=== PATIENT | female | born 1955 | race Caucasian/White ===

== ENCOUNTER → 2016-04-17 | Outpatient (CLI) | payer BC, OTHER ==
[~2016-04-17] MED LIST: ACT/45 PO; ASPCH81X PO; ASPI81TA28 PO; CYCL10TA6 PO; FLUO40CA8 PO; GABA1CAP PO; HYDR-5688 PO; IBUP-1450 PO; KRIL1000 PO; LEVO175T PO; LOSA100T2 PO; MECL1TAB42 PO; METF-384 PO; METF1TAB53 PO; METFTAB PO; MULT-506 PO; OMEG100046 PO
--- NOTE | 2016-04-17 11:01 | DIAGNOSTIC IMAGING REPORT ---
CHEST 2 VIEWS ROUTINE CLINICAL HISTORY: Cough COMPARISON STUDY: No previous studies for comparison. FINDINGS: The heart is at the upper limits of normal in size. There is mild interstitial thickening. There is no focal pulmonary consolidation. There are no pleural effusions.[ IMPRESSION: Mild interstitial thickening, finding of uncertain chronicity. No evidence of focal pulmonary consolidation Electronically signed by: Camilo George M.D. 04/17/2016 10:59 AM Dictated Date/Time: 04/17/2016 10:58 AM
== END | disposition home or self-care (01) ==
LOC: C.RAD1850 10:31
PROVIDERS: ATTEND Internal Medicine
DX: R05 Cough (principal)

== ENCOUNTER 2016-10-19 05:33 | Emergency (ER) | payer OTHER ==
[~2016-10-19] VITALS: Ht 147.3 cm; Wt 130.2 kg
[~2016-10-19 05:33] MED LIST changes: -ASPI81TA28 PO; -MECL1TAB42 PO; -METFTAB PO; -OMEG100046 PO
[2016-10-19] MEDS ORDERED: SODIUM CHLORIDE 0.9% 1000ML 1,000 ML IV STA (05:41)
[2016-10-19 05:43] VITALS: TEMP 37.5; Ht 147.3 cm; Wt 130.2 kg
[2016-10-19 05:49] VITALS: O2SAT 96
[2016-10-19] MEDS ORDERED: OMEG100046 PO (05:57)
[2016-10-19] MEDS ORDERED: ASPI81TA28 PO (05:57)
[2016-10-19] MEDS ORDERED: MECL1TAB42 PO (05:58)
[2016-10-19 06:17] LABS: BASO % 0.5 %; BASO ABS # 0.03 K/uL (0-0.2); COMPLETE YES; EOS % 2.2 %; HEMATOCRIT 40.6 % (37-47); IG% 0.3 %; LYMPH % 30.1 %; LYMPH ABS # 1.95 K/uL (1.2-3.4); MEAN CELL VOLUME 92.1 fL (80-100); MEAN CORPUSCULAR HEMOGLOBIN 32.4 pg (25-34); MEAN CORPUSCULAR HGB CONC 35.2 g/dl (32-36); MEAN PLATELET VOLUME 10.2 fL (7.4-10.4); MONO % 9.4 %; NEUT % 57.5 %; PLATELET COUNT 188 K/uL (130-400); RED BLOOD COUNT 4.41 M/uL (4.2-5.4); WHITE BLOOD COUNT 6.48 K/uL (4.8-10.8)
[2016-10-19] MEDS ORDERED: NovoLIN-R INSULIN PER UNIT CHARGE IV STA (06:22)
[2016-10-19 06:23] LABS: ISTAT CREATININE 0.8 mg/dl (0.6-1.3); ISTAT HEMOGLOBIN 14.6 g/dl (12.0-16.0); ISTAT IONIZED CALCIUM 1.14 mmol/l (1.12-1.32)
[2016-10-19 06:24] LABS: URINE APPEARANCE CLEAR (CLEAR); URINE BILIRUBIN NEG (NEG); URINE COLOR YELLOW; URINE NITRITE NEG (NEG); URINE SPECIFIC GRAVITY 1.044 (1.000-1.030); UROBILINOGEN NEG (NEG); ZZUR CULT IF INDIC CLEAN CATCH NO
[2016-10-19] MEDS ORDERED: METFTAB PO ×2 (06:24)
[2016-10-19 06:42] LABS: MANUAL MICROSCOPIC REQUIRED? NO; REVIEW REQ? NO
[2016-10-19 07:01] LABS: ALKALINE PHOSPHATASE 110 U/L (45-117); ALT/SGPT 37 U/L (12-78); AST/SGOT 27 U/L (15-37); BLOOD UREA NITROGEN 15 mg/dl (7-18); CALCIUM 8.8 mg/dl (8.5-10.1); CARBON DIOXIDE 25 mmol/L (21-32); CHLORIDE 99 mmol/L (98-107); GLUCOSE 460 mg/dl (70-99); POTASSIUM 3.8 mmol/L (3.5-5.1); SODIUM 133 mmol/L (136-145)
--- NOTE | 2016-10-19 07:04 | EMERGENCY ROOM VISIT NOTE ---
History First contact with patient: 05:35 Chief Complaint: HYPERGLYCEMIA Stated Complaint: HYPERGLYCEMIA History of Present Illness The patient is a 61 year old female who presents to the Emergency Room with complaints of hyperglycemia for the past few days. Patient states she's been out of her Glucophage for the past few weeks. Patient states she is changing PCPs and has an appointment in 2 weeks with a new one. Patient states she was lightheaded when she got up this morning to urinate and noticed her blood sugars were over 500. Patient denies chest pain, dyspnea, fever, chills, nausea , vomiting, diarrhea, back pain, abdominal pain. Patient complained of urinary frequency but states this is normal for her. No prior heart disease. Review of Systems See HPI for pertinent positives & negatives. A total of 10 systems reviewed and were otherwise negative. Past Medical/Surgical History Diabetes type 2, hypertension, hyperlipidemia, hypothyroidism Social History Smoking Status: Former Smoker Drug Use: none Marital Status: Housing Status: lives with family Current/Historical Medications Scheduled Aspirin (Aspirin Ec), 81 MG PO DAILY Fluoxetine (Prozac), 40 MG PO QAM Gabapentin (Neurontin), 1 CAP PO TID Levothyroxine Sodium (Synthroid), 175 MCG PO QAM Losartan Potassium & Hydrochlo (Hyzaar), 1 TAB PO QAM Metformin Ext Rel (Glucophage Ext Rel), 2 TAB PO QAM Metformin Ext Rel (Glucophage Ext Rel), 3 TABS PO QPM Metformin Hcl (Glucophage Ext Rel), 1 TAB PO QAM Metformin Hcl (Glucophage), 1,500 MG PO QPM Social Circle-3 Fatty Acids (Social [place] 3), 1 CAP PO DAILY Pioglitazone Hcl (Actos), 45 MG PO QAM Scheduled PRN Cyclobenzaprine Hcl (Flexeril), 1 TAB PO BID PRN for Pain Hydrocodone/Acetaminophen 5MG/325MG (Dahlgren 5MG/325MG), 0.5-1 TAB PO Q6H PRN for Pain Meclizine Hcl (Meclizine Hcl), 1 TAB PO TID PRN for Dizziness or Vertigo Physical Exam Vital Signs Date Time Temp Pulse Resp B/P (MAP) Pulse Ox O2 Delivery O2 Flow Rate FiO2 10/19/16 06:54 159/75 10/19/16 06:48 92 20 94 10/19/16 06:46 146/86 10/19/16 06:33 90 20 97 10/19/16 06:32 171/99 10/19/16 06:18 95 23 95 10/19/16 05:49 96 Room Air 10/19/16 05:43 97 Room Air 10/19/16 05:43 37.5 103 20 182/136 96 Room Air 10/19/16 05:41 100 10/19/16 05:39 182/136 Physical Exam VITALS: Vitals are noted on the nurse's note and reviewed by myself. Vital signs hypertensive GENERAL: Pleasant female, in no acute distress, nondiaphoretic, well-developed well-nourished. SKIN: The skin was without rashes, erythema, edema, or bruising. There is no tenting of the skin. Capillary reflex less than 2 seconds. HEAD: Normocephalic atraumatic. EARS: External auditory canals clear, tympanic membranes pearly deng without erythema or effusion bilaterally. EYES: Pupils equal round and reactive to light and accommodation. Conjunctivae without injection, sclerae without icterus. Extraocular movements intact. NOSE: Patent, turbinates without inflammation or discharge. MOUTH: Mucous membranes mildly dry. Pharynx without erythema or exudate. Uvula midline. Airway patent. Tongue does not deviate. NECK: Supple without nuchal rigidity. No lymphadenopathy. No thyromegaly. Cervical spine is nontender. No JVD. HEART: Regular rate and rhythm LUNGS: Clear to auscultation bilaterally without wheezes, rales or rhonchi. No dullness to percussion. No retractions or accessory muscle use. ABDOMEN: Positive bowel sounds x 4. Normal tympanic percussion. Soft, protuberant, obese, nontender, without masses or organomegaly. Gutierrez sign negative. No guarding or rebound tenderness. MUSCULOSKELETAL: No muscle atrophy, erythema, or edema noted. NEURO: Patient was alert and oriented to person place and time. Normal sensation to light and sharp touch. No focal neurological deficits. Medical Decision & Procedures Laboratory Results 10/19/16 06:05 Red Blood Count 4.41, Mean Corpuscular Volume 92.1, Mean Corpuscular Hemoglobin 32.4, Mean Corpuscular Hemoglobin Concent 35.2, Mean Platelet Volume 10.2, Neutrophils (%) (Auto) 57.5, Lymphocytes (%) (Auto) 30.1, Monocytes (%) (Auto) 9.4, Eosinophils (%) (Auto) 2.2, Basophils (%) (Auto) 0.5, Neutrophils # (Auto) 3.73, Lymphocytes # (Auto) 1.95, Monocytes # (Auto) 0.61, Eosinophils # (Auto) 0.14, Basophils # (Auto) 0.03 10/19/16 06:05 Test 10/19/16 05:40 10/19/16 06:05 10/19/16 06:10 10/19/16 06:55 Urine Color YELLOW Urine Appearance CLEAR (CLEAR) Urine pH 5.0 (4.5-7.5) Urine Specific [place] 1.044 (1.000-1.030) Urine Protein NEG (NEG) Urine Glucose (UA) 3+ (NEG) Urine Ketones NEG (NEG) Urine Occult Blood NEG (NEG) Urine Nitrite NEG (NEG) Urine Bilirubin NEG (NEG) Urine Urobilinogen NEG (NEG) Urine Leukocyte Esterase NEG (NEG) White Blood Count 6.48 K/uL (4.8-10.8) Red Blood Count 4.41 M/uL (4.2-5.4) Hemoglobin 14.3 g/dL (12.0-16.0) Hematocrit 40.6 % (37-47) Mean Corpuscular Volume 92.1 fL (80-100) Mean Corpuscular Hemoglobin 32.4 pg (25-34) Mean Corpuscular Hemoglobin Concent 35.2 g/dl (32-36) Platelet Count 188 K/uL (130-400) Mean Platelet Volume 10.2 fL (7.4-10.4) Neutrophils (%) (Auto) 57.5 % Lymphocytes (%) (Auto) 30.1 % Monocytes (%) (Auto) 9.4 % Eosinophils (%) (Auto) 2.2 % Basophils (%) (Auto) 0.5 % Neutrophils # (Auto) 3.73 K/uL (1.4-6.5) Lymphocytes # (Auto) 1.95 K/uL (1.2-3.4) Monocytes # (Auto) 0.61 K/uL (0.11-0.59) Eosinophils # (Auto) 0.14 K/uL (0-0.5) Basophils # (Auto) 0.03 K/uL (0-0.2) RDW Standard Deviation 45.1 fL (36.4-46.3) RDW Coefficient of Variation 13.3 % (11.5-14.5) Immature Granulocyte % (Auto) 0.3 % Immature Granulocyte # (Auto) 0.02 K/uL (0.00-0.02) Est Creatinine Clear Calc Drug Dose 66.6 ml/min Estimated GFR () 63.6 Estimated GFR (Non- 54.9 BUN/Creatinine Ratio 14.0 (10-20) Calcium Level 8.8 mg/dl (8.5-10.1) Total Bilirubin 0.5 mg/dl (0.2-1) Direct Bilirubin < 0.1 mg/dl (0-0.2) Aspartate Amino Transf (AST/SGOT) 27 U/L (15-37) Alanine Aminotransferase (ALT/SGPT) 37 U/L (12-78) Alkaline Phosphatase 110 U/L (45-117) Total Protein 7.2 gm/dl (6.4-8.2) Albumin 3.6 gm/dl (3.4-5.0) Bedside Hemoglobin 14.6 g/dl (12.0-16.0) Bedside Hematocrit 43 % (37-47) Bedside Sodium 135 mEq/L (135-144) Bedside Potassium 3.9 mEq/L (3.3-5.0) Bedside Chloride 97 mEq/L (101-112) Bedside Total CO2 25 mEq/l (24-31) Anion Gap 18.0 mmol/L (16-25) Bedside Blood Urea Nitrogen 16 mg/dl (7-18) Bedside Creatinine 0.8 mg/dl (0.6-1.3) Bedside Glucose (other) 468 mg/dl (70-99) Bedside Ionized Calcium (Kings) 1.14 mmol/l (1.12-1.32) Bedside Troponin I < 0.030 ng/ml (0-0.045) Bedside Glucose 318 mg/dl (70-90) Medications Administered Medications (Trade) Dose Ordered Sig/Marge Route Start Time Stop Time Status Last Admin Dose Admin Sodium Chloride 1,000 ml @ 999 mls/hr Q1H1M STAT IV 10/19/16 05:41 10/19/16 06:41 DC 10/19/16 05:41 999 MLS/HR Insulin Human Regular (novoLIN-R U-100 PER UNIT) 10 units NOW STAT IV 10/19/16 06:22 10/19/16 06:23 DC 10/19/16 06:25 10 UNITS ED Course Prior records/ancillary studies reviewed and summarized above. Nursing notes reviewed. Additional history obtained from EMS. The patient's history was concerning for hyperglycemia. Differential diagnosis: Etiologies such as metabolic, infection, hypo/hyperglycemia, electrolyte abnormalities, cardiac sources, intracerebral event, toxicologic, neurologic, as well as others were entertained. Physical examination: As above. ER treatment provided: IV Lock IV fluids On reassessment the patient felt better. Diagnostics interpretation by me: ECG: Normal sinus, normal intervals, no acute ST-T wave changes, impression sinus tachycardia interpreted by myself The labs revealed hyper glycemia without DKA Imaging studies: Chest x-ray with no acute consolidation, Pneumovax or free air per my interpretation Exam and history seem consistent with hyperglycemia due to noncompliance of medications. Patient was given a month's supply of her metformin as she was out. She is advised to get all her medications from her family care doctor. Patient was not in DKA. She is well-appearing. She is tolerating fluids. She did not take her morning blood pressure pills. She was advised to monitor her blood pressure and her blood sugars. She is advised follow-up family care in a few days or here in the ER sooner for chest pain, difficulty breathing, high blood sugars, worsening signs or symptoms or as needed. By the evaluation outlined above emergent etiologies such as infection, electrolyte abnormalities, cardiac sources, intracerebral event, toxologic, neurologic, metabolic, as well as others were deemed relatively unlikely. The pt informed about the findings as listed above. All questions were answered and pleased with the treatment. Return instructions were outlined and the patient was discharged in stable condition. Outpatient prescription management: Metformin Referral: The patient was referred back to primary care physician for follow-up in 2 to 3 days for a recheck of the current condition. Case reviewed with my attending Medical Decision As above Medication Reconcilliation Current Medication List: was personally reviewed by me Blood Pressure Screening Patient's blood pressure: Elevated blood pressure Blood pressure disposition: Elevated BP felt to be situational Impression Primary Impression: Hyperglycemia due to type 2 diabetes mellitus Departure Information Dispostion Home / Self-Care Condition GOOD Prescriptions Metformin Ext Rel (GLUCOPHAGE EXT REL) 500 Mg Tab 3 TABS PO QPM for 30 Days, #90 TAB Prov: Karlie Guo PA-C 10/19/16 Metformin Ext Rel (GLUCOPHAGE EXT REL) 500 Mg Tab 2 TAB PO QAM for 30 Days, #60 TAB Prov: Karlie Guo PA-C 10/19/16 Referrals Pro,Marty Denney M.D. (PCP) Patient Instructions My [facility] Additional Instructions Monitor your blood sugars. Rest and drink plenty of fluids as tolerated. Continue current medications. Return to the ER immediately for abdominal pain, vomiting, fevers, chest pains, difficulty breathing, worsening of your condition, or as needed. Follow up with your primary physician in 2-3 days for a recheck of your current condition. 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
[2016-10-19 07:12] VITALS: BP 143/69; PULSE 90; O2SAT 94
[2016-10-19 07:18] LABS: BETA-HYDROXYBUTYRATE 1.38 mg/dL (0.2-2.81)
--- NOTE | 2016-10-19 07:26 | DIAGNOSTIC IMAGING REPORT ---
CHEST ONE VIEW PORTABLE CLINICAL HISTORY: Chest pain. Hyperglycemia. COMPARISON STUDY: Chest radiograph April 17, 2016. FINDINGS: There is no pneumothorax or pleural effusion. Mild interstitial thickening is unchanged since prior exam. There is no consolidation to suggest pneumonia. Mild cardiomegaly is unchanged. There is no evidence of pulmonary edema. IMPRESSION: 1. No acute cardiopulmonary findings. 2. No change in mild interstitial thickening since exam of April 17, 2016. This remains nonspecific. Electronically signed by: Raman Peña M.D. 10/19/2016 7:24 AM Dictated Date/Time: 10/19/2016 7:23 AM
== END 2016-10-19 07:12 | disposition home or self-care (01) ==
LOC: EDBD 05:33 → C.EDB 05:35
DX: E11.65 Type 2 diabetes mellitus with hyperglycemia (principal); I10 Essential (primary) hypertension; E78.5 Hyperlipidemia, unspecified; E03.9 Hypothyroidism, unspecified; Z87.891 Personal history of nicotine dependence; Z79.82 Long term (current) use of aspirin; Z79.899 Other long term (current) drug therapy; Z91.14 Patient's other noncompliance with medication regimen

== ENCOUNTER → 2017-02-03 | Outpatient (CLI) | payer OTHER ==
[~2017-02-03] MED LIST changes: -ASPCH81X PO; +ASPI81TA28 PO; -IBUP-1450 PO; -KRIL1000 PO; +MECL1TAB42 PO; +METFTAB PO; -MULT-506 PO; +OMEG100046 PO
--- NOTE | 2017-02-03 09:53 | DIAGNOSTIC IMAGING REPORT ---
L-SPINE MIN 4 VIEWS ROUTINE CLINICAL HISTORY: M51.36 Disc degeneration, lumbar pain COMPARISON STUDY: No previous studies for comparison. FINDINGS: There is no pathologic bowel dilatation. There are surgical clips within the right upper quadrant consistent with a prior cholecystectomy. There are postsurgical changes of a discectomy and interbody fusion and posterior uncal screw fixation at the L5-S1 level. There is a grade 1 spondylolisthesis of L5 on S1. There are no acute fractures. No destructive lesions are visualized. IMPRESSION: 1. Postsurgical changes at the L5-S1 level 2. No acute fractures. Electronically signed by: Camilo George M.D. 02/03/2017 9:51 AM Dictated Date/Time: 02/03/2017 9:50 AM
[2017-02-03 10:55] LABS: ESTIMATED AVERAGE GLUCOSE 258 mg/dl; HA1C FLAG Normal (Normal)
[2017-02-03 11:22] LABS: ALT/SGPT 48 U/L (12-78); AST/SGOT 35 U/L (15-37); BLOOD UREA NITROGEN 9 mg/dl (7-18); BUN/CREATININE RATIO 11.1 (10-20); CALCIUM 9.4 mg/dl (8.5-10.1); CARBON DIOXIDE 25 mmol/L (21-32); CHLORIDE 98 mmol/L (98-107); CHOLESTEROL 218 mg/dl (0-200); CREATININE 0.81 mg/dl (0.60-1.20); GLUCOSE 246 mg/dl (70-99); POTASSIUM 3.6 mmol/L (3.5-5.1); SODIUM 136 mmol/L (136-145); TRIGLYCERIDES 276 mg/dl (0-150); VERY LOW DENSITY LIPOPROT CALC 55 mg/dl
[2017-02-03 11:33] LABS: ALKALINE PHOSPHATASE 107 U/L (45-117); CHOLESTEROL/HDL RATIO 4.4; HDL CHOLESTEROL 49 mg/dl; LDL CHOLESTEROL CALCULATED 114 mg/dl
== END | disposition home or self-care (01) ==
LOC: C.LAB1850 08:32
PROVIDERS: ATTEND Family Medicine
DX: M51.36 Other intervertebral disc degeneration, lumbar region (principal); E11.65 Type 2 diabetes mellitus with hyperglycemia; I10 Essential (primary) hypertension; E03.9 Hypothyroidism, unspecified; F41.0 Panic disorder [episodic paroxysmal anxiety]

== ENCOUNTER → 2017-04-11 | Outpatient (CLI) | payer OTHER ==
--- NOTE | 2017-04-11 14:50 | DIAGNOSTIC IMAGING REPORT ---
RIGHT THUMB 3 VIEWS HISTORY: Right thumb pain. Injury of thumb, right COMPARISON: None. FINDINGS: There is no fracture or dislocation. Soft tissue swelling at the thumb base. No radiopaque foreign bodies. IMPRESSION: No fracture or dislocation within the right thumb. Soft tissue swelling at the thumb base. Electronically signed by: Alphonso Ridley M.D. 04/11/2017 2:48 PM Dictated Date/Time: 04/11/2017 2:46 PM
== END | disposition home or self-care (01) ==
LOC: C.RADPV 14:29
PROVIDERS: ATTEND Family Medicine
DX: S69.91XA Unspecified injury of right wrist, hand and finger(s), initial encounter (principal); X58.XXXA Exposure to other specified factors, initial encounter

== ENCOUNTER → 2017-04-17 | Outpatient (CLI) | payer OTHER ==
--- NOTE | 2017-04-17 11:54 | DIAGNOSTIC IMAGING REPORT ---
CERVICAL SPINE 2 OR 3 VIEWS HISTORY: Trauma. Pain. INJURY OF NECK/ WHIPLASH COMPARISON: None. FINDINGS: The cervical spine is visualized from C1 through the superior endplate of T1. There is no fracture. No subluxation. Moderate degenerative disc change C5-C7. Prevertebral soft tissues and the atlantodens interval are intact. IMPRESSION: Moderate degenerative disc change C5-C7. No acute posttraumatic abnormality. The above report was generated using voice recognition software. It may contain grammatical, syntax or spelling errors. Electronically signed by: Grzegorz Live M.D. 04/17/2017 11:53 AM Dictated Date/Time: 04/17/2017 11:52 AM
--- NOTE | 2017-04-17 12:08 | DIAGNOSTIC IMAGING REPORT ---
THORACIC SPINE 3 VIEWS ROUTINE HISTORY: Trauma INJURY OF NECK/ WHIPLASH COMPARISON: None. FINDINGS: There is no fracture. No subluxation. Moderate degenerative disc change throughout IMPRESSION: No acute process. Moderate degenerative disc change. The above report was generated using voice recognition software. It may contain grammatical, syntax or spelling errors. Electronically signed by: Grzegorz Live M.D. 04/17/2017 12:07 PM Dictated Date/Time: 04/17/2017 12:06 PM
== END | disposition home or self-care (01) ==
LOC: C.RADPV 11:28
PROVIDERS: ATTEND Family Medicine
DX: S13.4XXA Sprain of ligaments of cervical spine, initial encounter (principal); X58.XXXA Exposure to other specified factors, initial encounter

== ENCOUNTER → 2017-06-05 | Outpatient (CLI) | payer OTHER ==
[~2017-06-05] MED LIST changes: +GABA100C13 PO; -GABA1CAP PO
[2017-06-05 11:00] LABS: HEMOGLOBIN A1C 11.1 % (4.5-5.6)
== END | disposition home or self-care (01) ==
LOC: C.LAB1850 08:53
PROVIDERS: ATTEND Nurse Practitioner Family
DX: E11.65 Type 2 diabetes mellitus with hyperglycemia (principal); E55.9 Vitamin D deficiency, unspecified

== ENCOUNTER → 2017-10-13 | Outpatient (CLI) | payer OTHER ==
[~2017-10-13] MED LIST changes: +GABA-1693 PO; -GABA100C13 PO
[2017-10-13 12:29] LABS: BLOOD UREA NITROGEN 16 mg/dl (7-18); CREATININE 0.94 mg/dl (0.60-1.20)
== END | disposition home or self-care (01) ==
LOC: C.LAB1850 09:06
PROVIDERS: ATTEND Surgery
DX: Z01.818 Encounter for other preprocedural examination (principal); C50.411 Malignant neoplasm of upper-outer quadrant of right female breast; Z17.0 Estrogen receptor positive status [ER+]

== ENCOUNTER → 2017-10-14 | Outpatient (CLI) | payer OTHER ==
[~2017-10-14] MED LIST changes: +GADAVIST IV PRN
--- NOTE | 2017-10-16 07:58 | MAMMOGRAPHY REPORT ---
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 Patient presents for preoperative assessment given lobular pathology. COMPARISON: Comparison is made to exams dated: 11/20/2007 ultrasound, 11/20/2007 mammogram - [facility], 09/05/2017 ultrasound, 09/05/2017 mammogram, 09/22/2017 stereotactic biopsy, and 09/22/2017 ultrasound biopsy - [facility]. TECHNIQUE: Using a 1.5 Darlyn magnet and dedicated breast coil, multisequence axial images were obtain ed through the breasts. After uneventful IV administration of 12.5 mL of Gadavist, dynamic multiphas e contrast-enhanced axial images, and sagittal postcontrast were obtained. Temporal subtraction axia l images and 3-D MIP images are provided. Everything was then reviewed on a 3-D workstation, [employer]. FINDINGS: Right breast: There is minimal background parenchymal enhancement of the right breast. There is an i rregular enhancing superficial mass in the superior right axilla measuring 9 x 8 x 7 mm, with mixed p lateau and washout kinetics, representing 1 of the areas of biopsy-proven lobular carcinoma. An inte rnal biopsy marker clip is seen within this mass, and it corresponds with the previously biopsied "monahan perior" shadowing mass (axial page 22/128). This is located within 5 mm of the dermal surface, altho ugh no definite skin thickening or abnormal enhancement noted in the overlying skin. A second irregu lar enhancing mass with internal biopsy marker clip is seen within the right axillary tail/inferior r ight axilla measuring 11 x 9 x 6 mm (axial page 38/128) representing the previously biopsied "inferio r" mass. No other mass enhancement is seen within the right breast, axillary tail or axilla. There is a small, 11 mm linear enhancing tract at the site of stereotactic biopsy in the 9:00 middle to ant erior right breast, denoting the site of biopsy-proven lobular carcinoma in situ. No definite subtle non-mass enhancement is seen near the biopsy tract to suggest additional disease although excision t o include sampling of additional faint calcifications is recommended. There is also persistent skin thickening and edema in the area of stereotactic biopsy site. There is mild prominence and thickenin g of the right nipple and areola with associated enhancement, that is asymmetric comparing to the lef t. It is unclear if this could be related to positioning in the MRI scanner although clinical evalua tion to assess for Paget's disease of the nipple is recommended, with possible skin biopsy. There are slightly more numerous small subcentimeter lymph nodes in the right axilla comparing to the left, which maintain normal morphology. No definite suspicious right axillary lymphadenopathy. Left breast: There is minimal background parenchymal enhancement of the left breast. No suspicious e nhancing masses, non-mass, architectural distortion or suspicious kinetics identified in the left heidi ast. The nipple area complex is intact. The retromammary fat is intact. No suspicious left axillar y, subpectoral or internal mammary lymphadenopathy. IMPRESSION: ACR BI-RADS CATEGORY 6: KNOWN BIOPSY PROVEN MALIGNANCY 1. There are 2 irregular enhancing masses with internal biopsy marker clips in the right axilla, rep resenting the recent biopsy-proven lobular carcinoma. The superior mass measures 9 mm and the inferi or mass measures 11 mm. 2. A small biopsy tract and biopsy marker clip are identified in the 9:00 middle to anterior right b reast denoting the site of prior stereotactic biopsy which yielded lobular carcinoma in situ. No def inite mass or non-mass enhancement is seen at the site of stereotactic biopsy to suggest additional d isease although surgical excision is still recommended, ideally to include sampling of additional jose david nt calcifications that extend over a maximum dimension of 3.3 cm mammographically. 3. Asymmetric mild prominence/thickening and enhancement of the right nipple and areola comparing to the left which could be due to positioning within the MRI scanner, although clinical evaluation for the possibility of Paget's disease is recommended, with possible skin biopsy. 4. No MRI evidence of malignancy in the left breast. 5. Slightly more numerous small shotty right axillary lymph nodes comparing to the left, which maint ain normal morphology. No definite suspicious right axillary, subpectoral or internal mammary lympha denopathy. Edna Leggett M.D. ay/:10/14/2017 22:51:05 Desktop Administrator: staff development educator, [facility] letter sent: Birad 6 BI-RADS Code: ACR BI-RADS Category 6: Known Biopsy Proven Malignancy
== END | disposition home or self-care (01) ==
LOC: C.MRI 11:21
PROVIDERS: ATTEND Surgery
DX: Z01.818 Encounter for other preprocedural examination (principal); C50.411 Malignant neoplasm of upper-outer quadrant of right female breast; Z17.0 Estrogen receptor positive status [ER+]; N64.89 Other specified disorders of breast

== ENCOUNTER → 2017-11-10 | Outpatient (CLI) | payer OTHER ==
[~2017-11-10] MED LIST changes: -GADAVIST IV PRN
== END | disposition home or self-care (01) ==
LOC: C.LAB1850 08:33
PROVIDERS: ATTEND Nurse Practitioner Family
DX: E11.65 Type 2 diabetes mellitus with hyperglycemia (principal); E55.9 Vitamin D deficiency, unspecified

== ENCOUNTER 2018-07-17 16:55 | Inpatient (IN) ==
[2018-07-17] MEDS ORDERED: SODIUM CHLORIDE 0.9% 1000ML 1,000 ML IV ONE (17:09)
[2018-07-17] MEDS ORDERED: CEFEPIME 2,000 MG/12.5 ML VIAL IV STA (17:18)
[2018-07-17] MEDS ORDERED: LEVALBUTEROL HCL 1.25 MG/3 ML NEB NEB STA (17:18)
[2018-07-17] MEDS ORDERED: DAPTOmycin 600 MG in SYRINGE 0 ML IV ONE (17:18)
[2018-07-17 17:24] LABS: Basophils # (auto) 0.02 K/uL (0-0.2); Basophils % (auto) 0.8 %; Eosinophils # (auto) 0.04 K/uL (0-0.5); Eosinophils % (auto) 1.7 %; Hematocrit (blood only) 25.2 % (37-47); Hemoglobin 8.4 g/dL (12.0-16.0); Immature Granulocytes # (auto) 0.07 K/uL (0.00-0.02); Immature Granulocytes % (auto) 2.9 %; Lymphocytes # (auto) 0.51 K/uL (1.2-3.4); Lymphocytes % (auto) 21.2 %; Mean Corpuscular Hgb Conc 33.3 g/dL (32-36); Mean Platelet Volume 9.1 fL (7.4-10.4); Monocytes # (auto) 0.34 K/uL (0.11-0.59); Monocytes % (auto) 14.1 %; Neutrophils # (auto) 1.43 K/uL (1.4-6.5); Neutrophils % (auto) 59.3 %; Nucleated RBC # (auto) 0.03 K/uL (0-0); Nucleated RBC % (auto) 1.4 %; Platelet Count 177 K/uL (130-400); RDW Coefficient of Variation 17.3 % (11.5-14.5); RDW Standard Deviation 56.2 fL (36.4-46.3); Red Blood Count 2.77 M/uL (4.2-5.4); White Blood Count 2.41 K/uL (4.8-10.8)
[2018-07-17] MEDS ORDERED: SODIUM CHLORIDE 0.9% 250 ML IV PRN (17:32)
[2018-07-17 17:37] LABS: INR 1.2 (0.9-1.1); Partial Thromboplastin Time 28.2 Seconds (21.0-31.0); Prothrombin Time 11.7 Seconds (9.0-12.0)
[2018-07-17 17:42] LABS: Alanine Aminotransferase 29 U/L (12-78); Albumin Level 2.8 gm/dl (3.4-5.0); Aspartate Aminotransferase 32 U/L (15-37); BUN Creatinine Ratio 16.3 (10-20); Blood Urea Nitrogen 12 mg/dl (7-18); Calcium 8.4 mg/dl (8.5-10.1); Carbon Dioxide 22 mmol/L (21-32); Chloride 99 mmol/L (98-107); Creatinine Clr Calc Pharmacy 91.3 ml/min; Est GFR (African American) 101.3; Est GFR (Non-African American) 87.4; Glucose 229 mg/dl (70-99); Potassium 3.8 mmol/L (3.5-5.1); Sodium 132 mmol/L (136-145)
[2018-07-17] MEDS ORDERED: DiphenhydrAMINE HCL 50 MG/ML VIAL IV STA (17:45)
[2018-07-17 17:47] LABS: Albumin Globulin Ratio 0.9 (0.9-2); Alkaline Phosphatase 97 U/L (45-117); Bilirubin,Total 1.4 mg/dl (0.2-1); Creatine Kinase 77 U/L (26-192); Creatine Kinase MB < 1.0 ng/ml (0.5-3.6); Globulin 3.1 gm/dl (2.5-4.0); Total Protein 5.9 gm/dl (6.4-8.2); Troponin I < 0.015 ng/ml (0-0.045)
--- NOTE | 2018-07-17 18:07 | XRay Report ---
XR chest 1V portable CLINICAL HISTORY: Sepsis dyspnea COMPARISON STUDY: 03/04/2018 FINDINGS: Mild cardia megaly. Prominent pulmonary vasculature. No focal infiltrate. Central catheter in superior vena cava. IMPRESSION: Mild congestive failure The above report was generated using voice recognition software. It may contain grammatical, syntax or spelling errors. Electronically signed by: Grzegorz Live M.D. 07/17/2018 6:05 PM
[2018-07-17] MEDS ORDERED: FUROSEMIDE 40 MG/4 ML VIAL IV STA (18:18)
[2018-07-17 18:56] LABS: Influenza A virus by PCR Neg for Influ A (Neg); Influenza B virus by PCR Neg for Influ B (Neg)
[2018-07-17] MEDS ORDERED: HEPARIN 100 UNIT/ML 5ML FLUSH ONE (18:58)
[2018-07-17 19:38] LABS: Appearance Urine Clear (Clear); Bilirubin Urine Negative (Negative); Blood Urine Negative (Negative); Color Urine Yellow; Glucose Urine UA 1+ (Negative); Ketones Urine 1+ (Negative); Leukocyte Esterase Urine Negative (Negative); Nitrite Urine Negative (Negative); Protein Urine Negative (Negative); Specific Gravity Urine 1.018 (1.000-1.030); Urobilinogen Urine Negative (Negative); pH Urine 5.5 (4.5-7.5)
[2018-07-17] MEDS ORDERED: OPTIRAY 320 125ml IV PRN (20:03)
--- NOTE | 2018-07-17 20:28 | CT Scan Report ---
CT angio chest PE protocol CT DOSE: 1097.09 mGy.cm HISTORY: 63 years-old Female with PE. Acute shortness of breath TECHNIQUE: Multiple CTA images of the chest were obtained after the intravenous administration of 119 ml Optiray 320. Coronal and sagittal MIPS were obtained from the axial data set and were submitted for review. All measurements were obtained according to NASCET criteria. A dose lowering technique w as utilized adhering to the principles of ALARA. COMPARISON: CTA 03/05/2018. FINDINGS: CTA: The heart is mildly enlarged. No pericardial effusion. The thoracic aorta is normal in both course an d caliber without aneurysm or dissection. Aberrant course of the right subclavian artery. Imaged grea t vessels appear patent. The pulmonary arterial tree is opacified to level the proximal segmental bra nches and demonstrates no focal filling defects to suggest pulmonary thromboembolic disease. Left pec cali [id number] catheter is noted, distal tip terminating within the SVC. CT CHEST: Calcifications are noted about the left paratracheal tissues just inferior to the left thyroid which may reflect a calcified nodule. No adenopathy by CT size criteria. No pneumothorax or pleural effusion. Bilateral mixed interstitial and alveolar opacities are noted wi thin a multi segmental multilobar distribution. There is mild intralobular septal thickening. A few t hin-walled pulmonary cysts are noted on the left. There are no suspicious pulmonary nodules or masses . Central airways appear patent. Mild wall thickening about the mid and distal esophagus. Coarse calcifications are noted about the he patic dome. Cholecystectomy. Soft tissues are unremarkable. Bones appear to be intact. Degenerative changes of th e shoulders and spine. IMPRESSION: 1. No acute aortic pathology or evidence of pulmonary thromboembolic disease. 2. Extensive bilateral mixed interstitial and alveolar opacities are seen within a multi segmental an d multi lobar distribution suggestive of diffuse multifocal pneumonia. Pulmonary edema considered les s likely. 3. Mild cardiomegaly. 4. No pleural effusion or adenopathy. 5. Aberrant right subclavian artery. The above report was generated using voice recognition software. It may contain grammatical, syntax o r spelling errors. Electronically signed by: Darius Love M.D. 07/17/2018 8:27 PM
[2018-07-17] MEDS ORDERED: LEVOFLOXACIN/D5W 750 MG/150 ML BAG IV STA (20:30)
[2018-07-17] MEDS ORDERED: CYCLOBENZAPRINE HCL 10 MG TAB PO PRN (22:57)
[2018-07-17] MEDS ORDERED: HYDROCODONE/ACETAMOPHEN 5/325MG TAB PO PRN (22:57)
[2018-07-17] MEDS ORDERED: ONDANSETRON 4 MG OD TAB PO PRN (22:57)
[2018-07-17] MEDS ORDERED: MECLIZINE HCL 25 MG TAB PO PRN (22:57)
[2018-07-17] MEDS ORDERED: TRAMADOL HCL 50 MG TABLET PO PRN (22:57)
--- NOTE | 2018-07-17 22:57 | History & Physical Report ---
Date of Service July 17, 2018 Assessment & Plan (1) Sepsis: Sepsis via SIRS/multifocal pneumonia/fever -Cefipime and azithro -Blood cultures ordered -WBC 2.41, ANC of 1500--continue to monitor -BP holding, continue to monitor with clinical hydration status -Repeat lactate in AM -Breathing treatment prn, wean from oxygen Breast Cancer, metastatic -S/P bilateral mastectomy -ANC adequate at this time -Have NOT consulted oncology T2DM -Patient reports uncontrolled since starting chemo -Uses Tresiba and short acting at home -Will place on ISS, will likely need adjustment from admit orders Anemia -2U PRBCs administered in ER -Follow labs HTN -Continue home meds HLD -Continue home meds Hypothyroidism -Continue home meds Depression -Continue home meds Back pain/sciatica/peripheral neuropathy -Continue home meds Code: Full DVTP: lovenox Dispo: med/surg (2) Multifocal pneumonia: (3) Fever: (4) Breast cancer, right breast: (5) DM II (diabetes mellitus, type II), controlled: (6) Benign essential HTN: (7) HLD (hyperlipidemia): (8) Hypothyroidism: (9) Depression: (10) Venous insufficiency (chronic) (peripheral): (11) Peripheral neuropathy: (12) Back pain: (13) Anemia: History of Present Illness Chief Complaint: Dyspnea, fatigue Primary Care Provider: Yesica Disla MD Patient is a pleasant 63yoF PMH metastatic breast cancer, HTN, Depression, T2DM, venous insufficiency, hypothyroidism who presented to the ER with acute dyspnea. She notes that about 2-3 weeks ago, she started to have a cough. She was given doxycycline for this and completed the course, but continued to have cough with clear/white phlegm. She reports that she has also been feeling quite fatigued in the past 5 days especially. She notes her daughter checks on her regularly and today felt that she was so fatigued and dyspneic she couldn't get up to answer the door, and recommended she come to the ER. On arrival to the ER, patient was hypoxic, tachycardic, tachypneic, and febrile, thus meeting SIRS sepsis criteria. Labs significant for WBC 2.41, Lactate 2.2. Hgb/Hct 8.4/25. ANC calculated at 1499 cells/uL. She was given albuterol/cefepime/dapto/levaquin/benadryl/40 lasix in the ER. 2U PRBCs were initiated, and CXR indicated fluid overload therefore only 1L bolus NSS was given Last chemo was on 07/07/18. She did not receive chemo on 07/14 due to low WBC. Follows with [facility]. Allergies Allergy/AdvReac Type Severity Reaction Status Date / Time adhesive Allergy Unknown "BLISTERS Verified 07/17/18 20:27 AND PULLS MY SKIN OFF" codeine AdvReac Mild Nausea Verified 07/17/18 20:27 erythromycin base AdvReac Unknown STOMACH Verified 07/17/18 20:27 PAIN indomethacin AdvReac Unknown "THINS Verified 07/17/18 20:27 BLOOD OUT TOO MUCH" valacyclovir [From Valtrex] AdvReac Unknown Palpitation Verified 07/17/18 20:27 s Home Medications Home Medications Medication Instructions Recorded Confirmed Type Novolog U-100 Insulin aspart 9 unit SUBCUT QAM 01/15/18 07/17/18 History Novolog U-100 Insulin aspart 13 unit SUBCUT 1200 01/15/18 07/17/18 History Novolog U-100 Insulin aspart 15 unit SUBCUT PM 01/15/18 07/17/18 History aspirin [Aspir-81] 81 mg PO QAM 01/15/18 07/17/18 History cyclobenzaprine 10 mg PO TID PRN 01/15/18 07/17/18 History fluoxetine 40 mg PO QAM 01/15/18 07/17/18 History gabapentin 200 mg PO TID 01/15/18 07/17/18 History hydrocodone-acetaminophen 0 tab PO UNKNOWN PRN 01/15/18 07/17/18 History levothyroxine 225 mcg PO QAM 01/15/18 07/17/18 History losartan-hydrochlorothiazide 1 tab PO QAM 01/15/18 07/17/18 History meclizine 25 mg PO DAILY PRN 01/15/18 07/17/18 History metformin 1,000 mg PO BID 01/15/18 07/17/18 History vitamin C44-femki acid 1 tab PO QAM 01/15/18 07/17/18 History iaazm-jg-9-tvz-kjz-rvhogrm-ast 2 cap PO QAM 02/20/18 07/17/18 History [krill oil] cholecalciferol (vitamin D3) 2,000 unit PO DAILY 02/23/18 07/17/18 History [Vitamin D3] ondansetron HCl [Zofran] 4 mg PO TID PRN 03/05/18 07/17/18 History dexamethasone 0 mg PO DAILY 07/17/18 07/17/18 History insulin degludec [Tresiba 0 units SUBCUT DAILY 07/17/18 07/17/18 History FlexTouch U-200] metoprolol succinate 25 mg PO DAILY 07/17/18 07/17/18 History tramadol 0 mg PO Q6H PRN 07/17/18 07/17/18 History Past Med/Surg History Medical History Anxiety PANIC ATTACKS Cancer BREAST CANCER-RIGHT SIDE Degenerative disc disease Depression Diabetes mellitus, type 2 INSULIN/ORAL MEDS-NO NEUROPATHY Diabetes mellitus, type 2 Fatty liver GERD (gastroesophageal reflux disease) History of recent steroid use Hx of breast cancer HX OF BILATERAL MASTECTOMY NOV 2017. DO NOT USE RIGHT ARM Hypertension Hypothyroidism Peripheral neuropathy secondary to back surgery Sciatica Venous insufficiency Surgical History History of adenoidectomy History of cardiac cath GREATER THAN 6 YRS AGO-NO STENTS-[facility] [place] History of section X 2 History of cholecystectomy History of dilatation and curettage History of hip surgery AN INFANT-LEFT SIDE History of laminectomy X 2 INCL FUSION-LUMBAR History of mastectomy BILATERAL, 12/15/17 @ [facility]. DO NOT USE RIGHT ARM History of tonsillectomy Family History Mother Family history of diabetes mellitus Family/Other Family history of diabetes mellitus AUNTS/UNCLES Social History Preferred Language: Hong Konger Communication Ability: Effective Visual Impairment: No Limitations Sewing Demonstrator Required: No Beliefs That Will Affect Care: None Current Living Situation: Spouse Other Information That Helps Us Care for You: No Feels Safe at Home: Yes Safety Concerns: Feels Safe At This Time Smoking Status: Former smoker Tobacco Type: cigarettes Cigarettes Per Day: HX OF 1.5 PPD X 10 YEARS (STARTED OUT AT ABOUT 1/2 PPD) Second Hand Exposure: Yes Hx Alcohol Use: Yes Alcohol type: hard liquor Hx Substance Use: No Review of Systems Review of Systems: All systems reviewed & are unremarkable except as noted in HPI & below Constitutional: + fever, + fatigue, + malaise and + weakness Ear, Nose, Mouth, Throat: + mouth lesions (reports cold sore developing on R upper lip) and + problem reported (pain in tongue 2/2 chemo) Respiratory: + cough, + dyspnea, + dyspnea on exertion and + sputum production Cardiovascular: + dyspnea, + dyspnea at rest, + dyspnea on exertion, + edema and + calf pain (chronic); no chest pain and no radiating jaw, neck or arm pain Gastrointestinal: + nausea; no abdominal pain and no bloating Musculoskeletal: + back pain and + radicular pain Physical Exam Constitutional: WD/WN, vitals as above + morbidly obese Pale; chemo- related hair loss Eyes: PERRL, conjunctivae normal, anicteric sclerae ENMT: Mouth: + lip abnormality (cold sore) Neck: normal visual inspection Respiratory: normal respiratory effort; no respiratory distress and no labored breathing Auscultation: + crackles (bibasilar) Cardiovascular: Rate/Rhythm: regular rate and regular rhythm Heart Sounds: + murmur (HESHAM) Extremities: + pedal edema Chest (Breasts): Breast: + abnormal inspection of breast (s/p bilateral mastectomy) Gastrointestinal (Abdomen): normal bowel sounds, soft, nontender, no hepatosplenomegaly Skin: no rashes, warm and dry Results & Data Vital Signs (Past 12 Hours) Vital Signs Temp Pulse Pulse Resp BP BP Pulse Ox 07/17/18 21:36 36.4 C L 98 H 18 130/71 93 07/17/18 21:06 36.7 C 101 H 18 150/81 H 90 07/17/18 20:51 36.7 C 98 H 24 159/80 H 92 07/17/18 20:31 36.7 C 99 H 24 140/70 95 07/17/18 19:08 108 H 18 130/66 92 07/17/18 18:08 37 C 114 H 24 93 07/17/18 17:35 109 H 18 100 07/17/18 17:12 119 H 24 100 07/17/18 17:05 38.5 C H 119 H 24 143/88 H 100 Laboratory Results 07/17/18 07/17/18 07/17/18 Range/Units 19:18 19:01 18:15 WBC (4.8-10.8) K/uL RBC (4.2-5.4) M/uL Hgb (12.0-16.0) g/dL Hct (37-47) % MCV (80-100) fL MCH (25-34) pg MCHC (32-36) g/dL RDW Std Deviation (36.4-46.3) fL RDW Coeff of Rosa (11.5-14.5) % Plt Count (130-400) K/uL MPV (7.4-10.4) fL Immature Gran % (Auto) % Neut % (Auto) % Lymph % (Auto) % [place] % (Auto) % Eos % (Auto) % Baso % (Auto) % Immature Gran # (Auto) (0.00-0.02) K/uL Neut # (Auto) (1.4-6.5) K/uL Lymph # (Auto) (1.2-3.4) K/uL [place] # (Auto) (0.11-0.59) K/uL Eos # (Auto) (0-0.5) K/uL Baso # (Auto) (0-0.2) K/uL Absolute Nucleated RBC (0-0) K/uL Nucleated RBC % (auto) % PT (9.0-12.0) Seconds INR (0.9-1.1) APTT (21.0-31.0) Seconds PTT Ratio Sodium (136-145) mmol/L Potassium (3.5-5.1) mmol/L Chloride (98-107) mmol/L Carbon Dioxide (21-32) mmol/L Anion Gap (3-11) BUN (7-18) mg/dl Creatinine (0.6-1.2) mg/dl Est Cr Clr Drug Dosing ml/min Est GFR ( Amer) Est GFR (Non-Af Amer) BUN/Creatinine Ratio (10-20) Glucose (70-99) mg/dl Lactate (0.4-2.0) mmol/L Calcium (8.5-10.1) mg/dl Total Bilirubin (0.2-1) mg/dl AST (15-37) U/L ALT (12-78) U/L Alkaline Phosphatase (45-117) U/L Total Creatine Kinase (26-192) U/L CK-MB (CK-2) (0.5-3.6) ng/ml CK/CKMB % Calc Troponin I (0-0.045) ng/ml NT-Pro-B Natriuret Pep (0-900) pg/ml Total Protein (6.4-8.2) gm/dl Albumin (3.4-5.0) gm/dl Globulin (2.5-4.0) gm/dl Albumin/Globulin Ratio (0.9-2) Urine Color Yellow Urine Appearance Clear (Clear) Urine pH 5.5 (4.5-7.5) Ur Specific [place] 1.018 (1.000-1.030) Urine Protein Negative (Negative) Urine Glucose (UA) 1+ H (Negative) Urine Ketones 1+ H (Negative) Urine Blood Negative (Negative) Urine Nitrite Negative (Negative) Urine Bilirubin Negative (Negative) Urine Urobilinogen Negative (Negative) Ur Leukocyte Esterase Negative (Negative) Influenza Type A (PCR) Neg for Influ A (Neg) Influenza Type B (PCR) Neg for Influ B (Neg) Blood Type Blood Type Recheck A Positive Antibody Screen Crossmatch 07/17/18 07/17/18 07/17/18 Range/Units 18:14 18:14 17:09 WBC (4.8-10.8) K/uL RBC (4.2-5.4) M/uL Hgb (12.0-16.0) g/dL Hct (37-47) % MCV (80-100) fL MCH (25-34) pg MCHC (32-36) g/dL RDW Std Deviation (36.4-46.3) fL RDW Coeff of Rosa (11.5-14.5) % Plt Count (130-400) K/uL MPV (7.4-10.4) fL Immature Gran % (Auto) % Neut % (Auto) % Lymph % (Auto) % [place] % (Auto) % Eos % (Auto) % Baso % (Auto) % Immature Gran # (Auto) (0.00-0.02) K/uL Neut # (Auto) (1.4-6.5) K/uL Lymph # (Auto) (1.2-3.4) K/uL [place] # (Auto) (0.11-0.59) K/uL Eos # (Auto) (0-0.5) K/uL Baso # (Auto) (0-0.2) K/uL Absolute Nucleated RBC (0-0) K/uL Nucleated RBC % (auto) % PT (9.0-12.0) Seconds INR (0.9-1.1) APTT (21.0-31.0) Seconds PTT Ratio Sodium (136-145) mmol/L Potassium (3.5-5.1) mmol/L Chloride (98-107) mmol/L Carbon Dioxide (21-32) mmol/L Anion Gap (3-11) BUN (7-18) mg/dl Creatinine (0.6-1.2) mg/dl Est Cr Clr Drug Dosing ml/min Est GFR ( Amer) Est GFR (Non-Af Amer) BUN/Creatinine Ratio (10-20) Glucose (70-99) mg/dl Lactate 2.2 H* (0.4-2.0) mmol/L Calcium (8.5-10.1) mg/dl Total Bilirubin (0.2-1) mg/dl AST (15-37) U/L ALT (12-78) U/L Alkaline Phosphatase (45-117) U/L Total Creatine Kinase (26-192) U/L CK-MB (CK-2) (0.5-3.6) ng/ml CK/CKMB % Calc Troponin I (0-0.045) ng/ml NT-Pro-B Natriuret Pep 43 (0-900) pg/ml Total Protein (6.4-8.2) gm/dl Albumin (3.4-5.0) gm/dl Globulin (2.5-4.0) gm/dl Albumin/Globulin Ratio (0.9-2) Urine Color Urine Appearance (Clear) Urine pH (4.5-7.5) Ur Specific [place] (1.000-1.030) Urine Protein (Negative) Urine Glucose (UA) (Negative) Urine Ketones (Negative) Urine Blood (Negative) Urine Nitrite (Negative) Urine Bilirubin (Negative) Urine Urobilinogen (Negative) Ur Leukocyte Esterase (Negative) Influenza Type A (PCR) (Neg) Influenza Type B (PCR) (Neg) Blood Type A Positive Blood Type Recheck Antibody Screen NEGATIVE Crossmatch See Detail 07/17/18 07/17/18 07/17/18 Range/Units 17:09 17:09 17:09 WBC 2.41 L (4.8-10.8) K/uL RBC 2.77 L (4.2-5.4) M/uL Hgb 8.4 L (12.0-16.0) g/dL Hct 25.2 L (37-47) % MCV 91.0 (80-100) fL MCH 30.3 (25-34) pg MCHC 33.3 (32-36) g/dL RDW Std Deviation 56.2 H (36.4-46.3) fL RDW Coeff of Rosa 17.3 H (11.5-14.5) % Plt Count 177 (130-400) K/uL MPV 9.1 (7.4-10.4) fL Immature Gran % (Auto) 2.9 % Neut % (Auto) 59.3 % Lymph % (Auto) 21.2 % [place] % (Auto) 14.1 % Eos % (Auto) 1.7 % Baso % (Auto) 0.8 % Immature Gran # (Auto) 0.07 H (0.00-0.02) K/uL Neut # (Auto) 1.43 (1.4-6.5) K/uL Lymph # (Auto) 0.51 L (1.2-3.4) K/uL [place] # (Auto) 0.34 (0.11-0.59) K/uL Eos # (Auto) 0.04 (0-0.5) K/uL Baso # (Auto) 0.02 (0-0.2) K/uL Absolute Nucleated RBC 0.03 H (0-0) K/uL Nucleated RBC % (auto) 1.4 % PT 11.7 (9.0-12.0) Seconds INR 1.2 H (0.9-1.1) APTT 28.2 (21.0-31.0) Seconds PTT Ratio 1.0 Sodium 132 L (136-145) mmol/L Potassium 3.8 (3.5-5.1) mmol/L Chloride 99 (98-107) mmol/L Carbon Dioxide 22 (21-32) mmol/L Anion Gap 11.0 (3-11) BUN 12 (7-18) mg/dl Creatinine 0.74 (0.6-1.2) mg/dl Est Cr Clr Drug Dosing 91.3 ml/min Est GFR ( Amer) 101.3 Est GFR (Non-Af Amer) 87.4 BUN/Creatinine Ratio 16.3 (10-20) Glucose 229 H (70-99) mg/dl Lactate (0.4-2.0) mmol/L Calcium 8.4 L (8.5-10.1) mg/dl Total Bilirubin 1.4 H (0.2-1) mg/dl AST 32 (15-37) U/L ALT 29 (12-78) U/L Alkaline Phosphatase 97 (45-117) U/L Total Creatine Kinase 77 (26-192) U/L CK-MB (CK-2) < 1.0 (0.5-3.6) ng/ml CK/CKMB % Calc TNP Troponin I < 0.015 (0-0.045) ng/ml NT-Pro-B Natriuret Pep (0-900) pg/ml Total Protein 5.9 L (6.4-8.2) gm/dl Albumin 2.8 L (3.4-5.0) gm/dl Globulin 3.1 (2.5-4.0) gm/dl Albumin/Globulin Ratio 0.9 (0.9-2) Urine Color Urine Appearance (Clear) Urine pH (4.5-7.5) Ur Specific [place] (1.000-1.030) Urine Protein (Negative) Urine Glucose (UA) (Negative) Urine Ketones (Negative) Urine Blood (Negative) Urine Nitrite (Negative) Urine Bilirubin (Negative) Urine Urobilinogen (Negative) Ur Leukocyte Esterase (Negative) Influenza Type A (PCR) (Neg) Influenza Type B (PCR) (Neg) Blood Type Blood Type Recheck Antibody Screen Crossmatch Diagnostic Findings CT angio chest PE protocol CT DOSE: 1097.09 mGy.cm HISTORY: 63 years-old Female with PE. Acute shortness of breath TECHNIQUE: Multiple CTA images of the chest were obtained after the intravenous administration of 119 ml Optiray 320. Coronal and sagittal MIPS were obtained from the axial data set and were submitted for review. All measurements were obtained according to NASCET criteria. A dose lowering technique was utilized adhering to the principles of ALARA. COMPARISON: CTA 03/05/2018. FINDINGS: CTA: The heart is mildly enlarged. No pericardial effusion. The thoracic aorta is normal in both course and caliber without aneurysm or dissection. Aberrant cours e of the right subclavian artery. Imaged great vessels appear patent. The pulmonary arterial tree is opacified to level the proximal segmental branches and demonstrates no focal filling defects to suggest pulmonary thromboembolic disease. Left pectoral Zqmvyk-q-Gzwc catheter is noted, distal tip terminating within the SVC. CT CHEST: Calcifications are noted about the left paratracheal tissues just inferior to the left thyroid which may reflect a calcified nodule. No adenopathy by CT size criteria. No pneumothorax or pleural effusion. Bilateral mixed interstitial and alveolar opacities are noted within a multi segmental multilobar distribution. There is mild intralobular septal thickening. A few thin-walled pulmonary cysts are noted on the left. There are no suspicious pulmonary nodules or masses. Central airways appear patent. Mild wall thickening about the mid and distal esophagus. Coarse calcifications are noted about the hepatic dome. Cholecystectomy. Soft tissues are unremarkable. Bones appear to be intact. Degenerative changes of the shoulders and spine. IMPRESSION: 1. No acute aortic pathology or evidence of pulmonary thromboembolic disease. 2. Extensive bilateral mixed interstitial and alveolar opacities are seen within a multi segmental and multi lobar distribution suggestive of diffuse multifocal pneumonia. Pulmonary edema considered less likely. 3. Mild cardiomegaly. 4. No pleural effusion or adenopathy. 5. Aberrant right subclavian artery. XR chest 1V portable CLINICAL HISTORY: Sepsis dyspnea COMPARISON STUDY: 03/04/2018 FINDINGS: Mild cardia megaly. Prominent pulmonary vasculature. No focal infiltrate. Central catheter in superior vena cava. IMPRESSION: Mild congestive failure The above report was generated using voice recognition software. It may contain grammatical, syntax or spelling errors. Electronically signed by: Grzegorz Live M.D. 07/17/2018 6:05 PM Medications Administered Current Inpatient Medications Hydrocodone Bitart/Acetaminophen ([place] 5/325) 1 tab PO Q6H PRN PRN Reason: Pain Stop: 07/31/18 22:56 Aspirin (Ecotrin Ectab) 81 mg PO QAM [facility]ETAL Stop: 08/17/18 08:59 Cyclobenzaprine HCl (Flexeril) 10 mg PO TID PRN PRN Reason: Muscle Spasm Stop: 08/16/18 22:56 Dexamethasone (Decadron) 4 mg PO DAILY [facility] Stop: 08/17/18 08:59 Fluoxetine HCl (Prozac) 40 mg PO QAM [facility] Stop: 08/17/18 08:59 Gabapentin (Neurontin) 200 mg PO TID [facility] Stop: 08/17/18 08:59 Sodium Chloride (Nss) 250 mls @ 15 mls/hr IV .[id number] PRN PRN Reason: For Transfusion Stop: 08/16/18 17:31 Ioversol (Optiray 320 125ml) 120 ml IV ONCE PRN PRN Reason: Interaction Checking Stop: 07/21/18 20:02 Last Admin: 07/17/18 20:04 Dose: 120 ml Documented by: Levothyroxine Sodium (Synthroid) 225 mcg PO QAM [facility] Stop: 08/17/18 08:59 Meclizine HCl (Antivert) 25 mg PO DAILY PRN PRN Reason: Dizziness Stop: 08/16/18 22:56 Metoprolol Succinate (Toprol Xl) 25 mg PO DAILY [facility] Stop: 08/17/18 08:59 Non-Formulary Medication (Losartan-Hydrochlorothiazide) 1 tab PO QAM [facility] Stop: 08/17/18 08:59 Non-Formulary Medication (Insulin Aspart Per Unit) 13 units SQ 1200 [facility] Stop: 08/17/18 11:59 Non-Formulary Medication (Vitamin K24-Bbsoh Acid) 1 tab PO QAM [facility] Stop: 08/17/18 08:59 Ondansetron HCl (Zofran) 4 mg PO TID PRN PRN Reason: Nausea Stop: 08/16/18 22:56 Tramadol HCl (Ultram) 50 mg PO Q6H PRN PRN Reason: Pain Stop: 08/16/18 22:56 Code Status & VTE Plan Code Status Full VTE Prophylaxis Plan VTE Prophylaxis will be ordered: Yes Supervising Physician Co-Signing Physician Notes Pt seen/examined in conjunction with resident MD Apurva Bradley. Orders and plan of admission formulated with resident. 63 y/o F Hx metastatic breast cancer - receiving chemo, HTN, Depression, DM II, hypothyroidism. Recently teated for a URI with Doxy and presents with worsening SOB - hypoxic on arrival to ER - does not use home 02. A CXR demonstrated multifocal pneumonia. OE: Pleasant, overweight, middle-aged F - AAO x 3, no distress. S1,2 R No M Cannot hear any clear crackles or wheezing - poor air movement NT, ND, BS+ Minimal BL edema No deficits P: She does not exhibit absolute neutropenia but should be considered immunocompromised. As she failed Doxy and her PNM is extensive, she is placed on Cefepime, Zithro and Vanc pending culture results and an MRSA swab. Placed on a SS fr DM Cont Levothyroxine Cont Metoprolol, Losartan Can f/u with oncology upon DC Resident Activity Tracking Resident Involvement: Resident Care Provided Care Provided: Adult Hospital Medicine (1) Breast cancer, right breast Patient sex: female (2) Fever Fever type: unspecified Qualified Code(s): R50.9 - Fever, unspecified (3) Sepsis Sepsis type: sepsis due to unspecified organism Qualified Code(s): A41.9 - Sepsis, unspecified organism
[2018-07-18] MEDS ORDERED: HEPARIN 100 UNIT/ML 5ML FLUSH ONE (00:26)
[2018-07-18] MEDS ORDERED: ALUMINUM/MAGNESIUM SUSP 30 ML UDC PO PRN (01:02)
[2018-07-18] MEDS ORDERED: MAGNESIUM HYDROXIDE SUSP 30 ML UDC PO PRN (01:02)
[2018-07-18] MEDS ORDERED: CARBOHYDRATES FOR HYPOGLYCEMIA PO PRN (01:02)
[2018-07-18] MEDS ORDERED: POLYETHYLENE (MIRALAX) 17 GM PACK PO PRN (01:02)
[2018-07-18] MEDS ORDERED: GLUCOSE 10 TABS/TUBE PO PRN (01:02)
[2018-07-18] MEDS ORDERED: ALBUTEROL 0.083% NEBU SOLN 3 ML VIAL NEB PRN (01:02)
[2018-07-18] MEDS ORDERED: GLUCOSE 40% GEL 15 GM TUBE PO PRN (01:02)
[2018-07-18] MEDS ORDERED: DEXTROSE 50% 50 ML SYRINGE IV PRN (01:02)
[2018-07-18] MEDS ORDERED: GLUCAGON FOR INJ 1 MG VIAL SQ PRN (01:02)
[2018-07-18] MEDS ORDERED: SODIUM CHLORIDE 0.9% 250 ML IV PRN (01:49)
[2018-07-18] MEDS: INSULIN ASPART 100 UNITS/ML 3 ML PEN SC SCH ×5 (02:33→21:34)
[2018-07-18] MEDS ORDERED: VANCOMYCIN CONSULT ACTIVE PRN (03:34)
[2018-07-18] MEDS: ACETAMINOPHEN 325 MG TAB PO PRN ×2 (03:40→23:07)
[2018-07-18] MEDS: CEFEPIME 2,000 MG in SYRINGE 7.5 ML IV SCH ×3 (03:43→17:52)
[2018-07-18] MEDS ORDERED: VANCOMYCIN HCL 2,250 MG in SODIUM CHLORIDE 0.9% 500 ML IV ONE (04:00)
[2018-07-18] MEDS: LEVOTHYROXINE SODIUM 25 MCG TABLET PO SCH (06:56)
[2018-07-18] MEDS: LEVOTHYROXINE SODIUM 200 MCG TABLET PO SCH (06:56)
[2018-07-18] MEDS: GABAPENTIN 100 MG CAP PO SCH ×3 (08:09→21:34)
[2018-07-18] MEDS: FLUOXETINE HCL 20 MG CAP PO SCH (08:10)
[2018-07-18] MEDS: ENOXAPARIN INJ 40 MG/0.4 ML SYR SQ SCH (08:11)
[2018-07-18] MEDS: LOSARTAN POTASSIUM 50 MG TAB PO SCH (08:11)
[2018-07-18] MEDS: AZITHROMYCIN 500 MG in DEXTROSE 5% 250 ML IV SCH (08:17)
[2018-07-18] MEDS: INSULIN GLARGINE SOLOSTAR 100 UNITS/ML 3 ML PEN SC SCH ×2 (08:18→21:35)
[2018-07-18 08:26] LABS: Basophils # (auto) 0.01 K/uL (0-0.2); Basophils % (auto) 0.4 %; Eosinophils # (auto) 0.04 K/uL (0-0.5); Eosinophils % (auto) 1.5 %; Immature Granulocytes # (auto) 0.05 K/uL (0.00-0.02); Immature Granulocytes % (auto) 1.8 %; Lymphocytes # (auto) 0.78 K/uL (1.2-3.4); Lymphocytes % (auto) 28.4 %; Mean Corpuscular Hgb Conc 33.3 g/dL (32-36); Mean Corpuscular Volume 87.5 fL (80-100); Mean Platelet Volume 9.6 fL (7.4-10.4); Monocytes # (auto) 0.21 K/uL (0.11-0.59); Monocytes % (auto) 7.6 %; Neutrophils # (auto) 1.66 K/uL (1.4-6.5); Neutrophils % (auto) 60.3 %; Nucleated RBC # (auto) 0.02 K/uL (0-0); Nucleated RBC % (auto) 0.7 %; Platelet Count 151 K/uL (130-400); RDW Coefficient of Variation 18.2 % (11.5-14.5); RDW Standard Deviation 55.8 fL (36.4-46.3); Red Blood Count 3.43 M/uL (4.2-5.4); White Blood Count 2.75 K/uL (4.8-10.8)
[2018-07-18 08:54] LABS: BUN Creatinine Ratio 13.2 (10-20); Calcium 7.9 mg/dl (8.5-10.1); Creatinine Clr Calc Pharmacy 99.1 ml/min; Est GFR (African American) 109.4; Est GFR (Non-African American) 94.4; Potassium 3.3 mmol/L (3.5-5.1)
[2018-07-18] MEDS ORDERED: POTASSIUM CHLORIDE 20 MEQ TABCR PO STA (08:57)
[2018-07-18] MEDS ORDERED: ASPIRIN 81 MG ECTAB PO SCH (09:00)
[2018-07-18] MEDS ORDERED: NON-FORMULARY MEDICATION (Vitamin B12-Folic Acid 1 TAB) PO SCH (09:00)
[2018-07-18] MEDS ORDERED: hydroCHLOROthiazide 25 MG TAB PO SCH (09:00)
[2018-07-18] MEDS ORDERED: dexAMETHasone 4 MG TAB PO SCH (09:00)
[2018-07-18 09:22] LABS: Albumin Level 2.6 gm/dl (3.4-5.0); Bilirubin Direct 0.5 mg/dl (0-0.2); Bilirubin,Total 1.6 mg/dl (0.2-1); Magnesium 1.8 mg/dl (1.8-2.4); Total Protein 5.7 gm/dl (6.4-8.2)
[2018-07-18] MEDS: METOPROLOL SUCC 25MG EXT REL TAB PO SCH (09:56)
[2018-07-18 10:06] LABS: Estimated Average Glucose 160 mg/dl; Hemoglobin A1C 7.2 % (4.5-5.6)
[2018-07-18] MEDS ORDERED: Nursing to Pharmacy Communication ONE (11:25)
[2018-07-18] MEDS ORDERED: SODIUM CHLORIDE 0.65% NA SOLN 45 ML (OCEAN) PRN (11:42)
[2018-07-18] MEDS ORDERED: HEPARIN 100 UNIT/ML 5ML FLUSH IV PRN (11:45)
[2018-07-18] MEDS ORDERED: INSULIN ASPART SQ SCH (12:00)
[2018-07-18] MEDS: HEPARIN 100 UNIT/ML 5ML FLUSH FLUSH PRN (12:29)
--- NOTE | 2018-07-18 14:25 | Pharmacy Report ---
Pharmacy Abx Initial Consult - Date of Service July 18, 2018 - Pharmacy Dosing Scope Date of Consult: 07/17/18 Consultation requested by: Dr. Hidalgo Pharmacy is consulted to initiate Vancomycin IV dosing therapy, order appropriate labs and adjust drug dose/frequency. - Subjective The patient is a 63 year old F admitted on 07/17/18 23:52. - Objective Height: 4 ft 11 in Weight: 115.8 kg Vital Signs (Past 12hrs): Vital Signs Temp Pulse Pulse Resp BP BP Pulse Ox 07/18/18 12:10 37.1 C 96 H 20 105/68 90 07/18/18 06:24 36.8 C 107 H 20 109/72 90 07/18/18 05:15 37.3 C 105 H 20 105/66 07/18/18 04:21 38.2 C H 107 H 20 114/70 07/18/18 03:30 37.7 C H 108 H 20 128/77 91 07/18/18 03:03 37.3 C 104 H 18 129/78 90 07/18/18 03:00 37.3 C 104 H 18 129/78 90 Lab Results (24hrs): Laboratory Tests (24 Hours) 07/18/18 07/18/18 07/17/18 08:13 08:13 17:09 WBC 2.75 L Neut # (Auto) 1.66 Creatinine 0.68 0.74 Est Cr Clr Drug Dosing 99.1 91.3 Total Creatine Kinase 77 07/17/18 17:09 WBC 2.41 L Neut # (Auto) 1.43 Creatinine Est Cr Clr Drug Dosing Total Creatine Kinase Micro Results: 07/17/18 17:09 Blood Culture - Pending Blood - Risk Factors for Resistance * Immunocompromised (chemotherapy) * Antimicrobial use within the last 90 days - Doxycycline [employer]PER[employer] CONTACT LENS - Assessment & Plan Assessment * 63 year old F admitted with fever, muti-focal Pneumonia and Sepsis. * Patient has metastatic breast cancer and was recently on Chemo. WBC is low at 2.75, ANC = 1500 * She was started on Cefepime, Azithromycin and Vancomycin. Vanco dosing per pharmacy consult. * Patient is morbidly obese with BMI = 51.6 kg/m2. Plan Vancomycin for treatment of Sepsis/Pneumonia. Vancomycin IV * Estimated PK Parameters: Vd 0.55 L/kg, Denis 0.088 hr-1, t1/2 7.9 hr * Loading dose: 2250 mg (20 mg/kg) x 1 given this AM. * Maintenance dose: 1250 mg IV (10.7 mg/kg) every 12 hours * Goal trough level for Pneumonia: 15 to 20 mcg/mL * Trough level ordered for tomorrow before 3rd maintenance dose. Level will not be at steady-state, but needs assessed sooner d/t possibility of drug accumulation in this obese patient. * A less than traditional dose has also been selected due to likelihood of drug accumulation in obese patient. Pharmacy will continue to follow and will adjust dose/frequency as necessary. Thank you.
--- NOTE | 2018-07-18 15:16 | Hospitalist Progress Note ---
Date of Service July 18, 2018 Assessment & Plan (1) Sepsis: - Febrile, tachycardic with pulmonary source. Lactic acid level was 2.2, now WNL. - Received IV fluids in the ER; will give NS at 80 cc/hr. - Treatment of pneumonia as noted below. - Blood cultures are pending; u/a was negative. - Consider stress dose steroids if necessary -- takes Decadron 4 mg prior to chemo at home. (2) Multifocal pneumonia: - CT chest showed multifocal PNA. - Continue Cefepime/Azithromycin/Vancomycin for empiric coverage. (3) Acute respiratory failure with hypoxia: - Currently requirin 3L via NC, on room air at home. - Likely related to PNA. (4) Diarrhea: - C. diff pending. - IV fluids at 80 cc/hr. (5) Breast cancer, right breast: - Currently receiving Taxol chemotherapy weekly. - Consider oncology consult. (6) Anemia: - In setting of chemotherapy. - Hgb 8.4 at admission, received 2 units pRBCs with improvement. - Monitor CBC qAM. (7) DM II (diabetes mellitus, type II), controlled: - Hgb A1C was 7.2 - SSI & long acting insulin ordered. (8) Hypothyroidism: - Continue Synthroid 225 mcg daily. - Most recent TSH was 3.6 in Feb 2018. (9) HLD (hyperlipidemia): - Not currently on treatment. (10) Benign essential HTN: - Continue Losartan, Metoprolol as prescribed. - Hold home HCTZ in setting of dehydration. (11) Depression: - Continue Prozac as prescribed. (12) Back pain: - Continue Gabapentin as prescribed. (13) Electrolyte abnormality: - K level 3.3 -- ordered K 40 mEq PO. (14) DVT prophylaxis: - Lovenox q24hr. Dispo: Med/surg for treatment of multifocal PNA, IV abx. Supervising Physician Co-Signing Physician Notes PA Supervision Note: I did not personally see or examine the patient today, but I verified all victor points of MAURICIO Sarah's assessment and plan with the following exceptions/additions: None Subjective Pt. is stable overall. She complains of shortness of breath due to nasal congestion -- feels like oxygen is not working well due to congestion. Is currently requiring 3L via NC, on room air at home. Is very fatigued, weak -- likely related to infection. Did not sleep well last night. Complains of nasal congestion, post nasal drip and productive cough. She is having diarrhea -- will order C. diff. Review of Systems Review of Systems: All systems reviewed & are unremarkable except as noted in HPI & below Constitutional: + fatigue, + weakness and + anorexia; no fever and no chills Ear, Nose, Mouth, Throat: + nasal congestion, + nasal discharge, + post nasal drip and + sinus pain/pressure; no sore throat Respiratory: + cough, + dyspnea and + sputum production; no dyspnea on exertion and no wheezing Cardiovascular: no chest pain, no palpitations, no lightheadedness, no syncope and no edema Gastrointestinal: + diarrhea/loose stools; no abdominal pain, no nausea and no vomiting Genitourinary: no dysuria and no difficulty urinating Musculoskeletal: no back pain and no joint pain Integumentary: no non-healing lesions Neurologic: no headache(s) Allergy / Immunological: no rash Physical Exam Physical Exam: General: Resting comfortably in no apparent distress; A&OX3 HEENT: NC/AT; PERRLA with EOMI; Dry oral mucosa. Neck: Supple and nontender Cardiac: RRR w/o murmurs, gallops or rubs Lungs: 3L via NC; diminished in bilat lung bases. Abdomen: Bowel normoactive X 4; Nontender to palpation Extremities: Warm. +1 non pitting bilat LE edema. Neuro: No focal weakness Skin: No rash Results & Data Vital Signs (Past 12 Hours) Vital Signs Temp Pulse Pulse Resp BP BP Pulse Ox 07/18/18 12:10 37.1 C 96 H 20 105/68 90 07/18/18 06:24 36.8 C 107 H 20 109/72 90 07/18/18 05:15 37.3 C 105 H 20 105/66 07/18/18 04:21 38.2 C H 107 H 20 114/70 07/18/18 03:30 37.7 C H 108 H 20 128/77 91 Laboratory Results 07/18/18 07/18/18 07/18/18 Range/Units 12:35 11:42 08:13 WBC (4.8-10.8) K/uL RBC (4.2-5.4) M/uL Hgb (12.0-16.0) g/dL Hct (37-47) % MCV (80-100) fL MCH (25-34) pg MCHC (32-36) g/dL RDW Std Deviation (36.4-46.3) fL RDW Coeff of Rosa (11.5-14.5) % Plt Count (130-400) K/uL MPV (7.4-10.4) fL Immature Gran % (Auto) % Neut % (Auto) % Lymph % (Auto) % [place] % (Auto) % Eos % (Auto) % Baso % (Auto) % Immature Gran # (Auto) (0.00-0.02) K/uL Neut # (Auto) (1.4-6.5) K/uL Lymph # (Auto) (1.2-3.4) K/uL [place] # (Auto) (0.11-0.59) K/uL Eos # (Auto) (0-0.5) K/uL Baso # (Auto) (0-0.2) K/uL Absolute Nucleated RBC (0-0) K/uL Nucleated RBC % (auto) % PT (9.0-12.0) Seconds INR (0.9-1.1) APTT (21.0-31.0) Seconds PTT Ratio Sodium (136-145) mmol/L Potassium (3.5-5.1) mmol/L Chloride (98-107) mmol/L Carbon Dioxide (21-32) mmol/L Anion Gap (3-11) BUN (7-18) mg/dl Creatinine (0.6-1.2) mg/dl Est Cr Clr Drug Dosing ml/min Est GFR ( Amer) Est GFR (Non-Af Amer) BUN/Creatinine Ratio (10-20) Glucose (70-99) mg/dl POC Glucose 266 H (70-99) Estimat Average Glucose mg/dl Hemoglobin A1c (4.5-5.6) % Lactate (0.4-2.0) mmol/L Calcium (8.5-10.1) mg/dl Magnesium 1.8 (1.8-2.4) mg/dl Total Bilirubin 1.6 H (0.2-1) mg/dl Direct Bilirubin 0.5 H (0-0.2) mg/dl AST 29 (15-37) U/L ALT 26 (12-78) U/L Alkaline Phosphatase 84 (45-117) U/L Total Creatine Kinase (26-192) U/L CK-MB (CK-2) (0.5-3.6) ng/ml CK/CKMB % Calc Troponin I (0-0.045) ng/ml NT-Pro-B Natriuret Pep (0-900) pg/ml Total Protein 5.7 L (6.4-8.2) gm/dl Albumin 2.6 L (3.4-5.0) gm/dl Globulin (2.5-4.0) gm/dl Albumin/Globulin Ratio (0.9-2) Urine Color Urine Appearance (Clear) Urine pH (4.5-7.5) Ur Specific [place] (1.000-1.030) Urine Protein (Negative) Urine Glucose (UA) (Negative) Urine Ketones (Negative) Urine Blood (Negative) Urine Nitrite (Negative) Urine Bilirubin (Negative) Urine Urobilinogen (Negative) Ur Leukocyte Esterase (Negative) Nasal Screen MRSA (PCR) Negative (Negative) Influenza Type A (PCR) (Neg) Influenza Type B (PCR) (Neg) Blood Type Blood Type Recheck Antibody Screen Crossmatch 07/18/18 07/18/18 07/18/18 Range/Units 08:13 08:13 08:13 WBC (4.8-10.8) K/uL RBC (4.2-5.4) M/uL Hgb (12.0-16.0) g/dL Hct (37-47) % MCV (80-100) fL MCH (25-34) pg MCHC (32-36) g/dL RDW Std Deviation (36.4-46.3) fL RDW Coeff of Rosa (11.5-14.5) % Plt Count (130-400) K/uL MPV (7.4-10.4) fL Immature Gran % (Auto) % Neut % (Auto) % Lymph % (Auto) % [place] % (Auto) % Eos % (Auto) % Baso % (Auto) % Immature Gran # (Auto) (0.00-0.02) K/uL Neut # (Auto) (1.4-6.5) K/uL Lymph # (Auto) (1.2-3.4) K/uL [place] # (Auto) (0.11-0.59) K/uL Eos # (Auto) (0-0.5) K/uL Baso # (Auto) (0-0.2) K/uL Absolute Nucleated RBC (0-0) K/uL Nucleated RBC % (auto) % PT (9.0-12.0) Seconds INR (0.9-1.1) APTT (21.0-31.0) Seconds PTT Ratio Sodium 135 L (136-145) mmol/L Potassium 3.3 L (3.5-5.1) mmol/L Chloride 102 (98-107) mmol/L Carbon Dioxide 24 (21-32) mmol/L Anion Gap 9.0 (3-11) BUN 9 (7-18) mg/dl Creatinine 0.68 (0.6-1.2) mg/dl Est Cr Clr Drug Dosing 99.1 ml/min Est GFR ( Amer) 109.4 Est GFR (Non-Af Amer) 94.4 BUN/Creatinine Ratio 13.2 (10-20) Glucose 174 H (70-99) mg/dl POC Glucose (70-99) Estimat Average Glucose 160 mg/dl Hemoglobin A1c 7.2 H (4.5-5.6) % Lactate 1.2 (0.4-2.0) mmol/L Calcium 7.9 L (8.5-10.1) mg/dl Magnesium (1.8-2.4) mg/dl Total Bilirubin (0.2-1) mg/dl Direct Bilirubin (0-0.2) mg/dl AST (15-37) U/L ALT (12-78) U/L Alkaline Phosphatase (45-117) U/L Total Creatine Kinase (26-192) U/L CK-MB (CK-2) (0.5-3.6) ng/ml CK/CKMB % Calc Troponin I (0-0.045) ng/ml NT-Pro-B Natriuret Pep (0-900) pg/ml Total Protein (6.4-8.2) gm/dl Albumin (3.4-5.0) gm/dl Globulin (2.5-4.0) gm/dl Albumin/Globulin Ratio (0.9-2) Urine Color Urine Appearance (Clear) Urine pH (4.5-7.5) Ur Specific [place] (1.000-1.030) Urine Protein (Negative) Urine Glucose (UA) (Negative) Urine Ketones (Negative) Urine Blood (Negative) Urine Nitrite (Negative) Urine Bilirubin (Negative) Urine Urobilinogen (Negative) Ur Leukocyte Esterase (Negative) Nasal Screen MRSA (PCR) (Negative) Influenza Type A (PCR) (Neg) Influenza Type B (PCR) (Neg) Blood Type Blood Type Recheck Antibody Screen Crossmatch 07/18/18 07/18/18 07/18/18 Range/Units 08:13 07:25 01:48 WBC 2.75 L (4.8-10.8) K/uL RBC 3.43 L (4.2-5.4) M/uL Hgb 10.0 L (12.0-16.0) g/dL Hct 30.0 L (37-47) % MCV 87.5 (80-100) fL MCH 29.2 (25-34) pg MCHC 33.3 (32-36) g/dL RDW Std Deviation 55.8 H (36.4-46.3) fL RDW Coeff of Rosa 18.2 H (11.5-14.5) % Plt Count 151 (130-400) K/uL MPV 9.6 (7.4-10.4) fL Immature Gran % (Auto) 1.8 % Neut % (Auto) 60.3 % Lymph % (Auto) 28.4 % [place] % (Auto) 7.6 % Eos % (Auto) 1.5 % Baso % (Auto) 0.4 % Immature Gran # (Auto) 0.05 H (0.00-0.02) K/uL Neut # (Auto) 1.66 (1.4-6.5) K/uL Lymph # (Auto) 0.78 L (1.2-3.4) K/uL [place] # (Auto) 0.21 (0.11-0.59) K/uL Eos # (Auto) 0.04 (0-0.5) K/uL Baso # (Auto) 0.01 (0-0.2) K/uL Absolute Nucleated RBC 0.02 H (0-0) K/uL Nucleated RBC % (auto) 0.7 % PT (9.0-12.0) Seconds INR (0.9-1.1) APTT (21.0-31.0) Seconds PTT Ratio Sodium (136-145) mmol/L Potassium (3.5-5.1) mmol/L Chloride (98-107) mmol/L Carbon Dioxide (21-32) mmol/L Anion Gap (3-11) BUN (7-18) mg/dl Creatinine (0.6-1.2) mg/dl Est Cr Clr Drug Dosing ml/min Est GFR ( Amer) Est GFR (Non-Af Amer) BUN/Creatinine Ratio (10-20) Glucose (70-99) mg/dl POC Glucose 183 H 194 H (70-99) Estimat Average Glucose mg/dl Hemoglobin A1c (4.5-5.6) % Lactate (0.4-2.0) mmol/L Calcium (8.5-10.1) mg/dl Magnesium (1.8-2.4) mg/dl Total Bilirubin (0.2-1) mg/dl Direct Bilirubin (0-0.2) mg/dl AST (15-37) U/L ALT (12-78) U/L Alkaline Phosphatase (45-117) U/L Total Creatine Kinase (26-192) U/L CK-MB (CK-2) (0.5-3.6) ng/ml CK/CKMB % Calc Troponin I (0-0.045) ng/ml NT-Pro-B Natriuret Pep (0-900) pg/ml Total Protein (6.4-8.2) gm/dl Albumin (3.4-5.0) gm/dl Globulin (2.5-4.0) gm/dl Albumin/Globulin Ratio (0.9-2) Urine Color Urine Appearance (Clear) Urine pH (4.5-7.5) Ur Specific [place] (1.000-1.030) Urine Protein (Negative) Urine Glucose (UA) (Negative) Urine Ketones (Negative) Urine Blood (Negative) Urine Nitrite (Negative) Urine Bilirubin (Negative) Urine Urobilinogen (Negative) Ur Leukocyte Esterase (Negative) Nasal Screen MRSA (PCR) (Negative) Influenza Type A (PCR) (Neg) Influenza Type B (PCR) (Neg) Blood Type Blood Type Recheck Antibody Screen Crossmatch 04/26/19 04/26/19 04/26/19 Range/Units 19:18 19:01 18:15 WBC (4.8-10.8) K/uL RBC (4.2-5.4) M/uL Hgb (12.0-16.0) g/dL Hct (37-47) % MCV (80-100) fL MCH (25-34) pg MCHC (32-36) g/dL RDW Std Deviation (36.4-46.3) fL RDW Coeff of Rosa (11.5-14.5) % Plt Count (130-400) K/uL MPV (7.4-10.4) fL Immature Gran % (Auto) % Neut % (Auto) % Lymph % (Auto) % [place] % (Auto) % Eos % (Auto) % Baso % (Auto) % Immature Gran # (Auto) (0.00-0.02) K/uL Neut # (Auto) (1.4-6.5) K/uL Lymph # (Auto) (1.2-3.4) K/uL [place] # (Auto) (0.11-0.59) K/uL Eos # (Auto) (0-0.5) K/uL Baso # (Auto) (0-0.2) K/uL Absolute Nucleated RBC (0-0) K/uL Nucleated RBC % (auto) % PT (9.0-12.0) Seconds INR (0.9-1.1) APTT (21.0-31.0) Seconds PTT Ratio Sodium (136-145) mmol/L Potassium (3.5-5.1) mmol/L Chloride (98-107) mmol/L Carbon Dioxide (21-32) mmol/L Anion Gap (3-11) BUN (7-18) mg/dl Creatinine (0.6-1.2) mg/dl Est Cr Clr Drug Dosing ml/min Est GFR ( Amer) Est GFR (Non-Af Amer) BUN/Creatinine Ratio (10-20) Glucose (70-99) mg/dl POC Glucose (70-99) Estimat Average Glucose mg/dl Hemoglobin A1c (4.5-5.6) % Lactate (0.4-2.0) mmol/L Calcium (8.5-10.1) mg/dl Magnesium (1.8-2.4) mg/dl Total Bilirubin (0.2-1) mg/dl Direct Bilirubin (0-0.2) mg/dl AST (15-37) U/L ALT (12-78) U/L Alkaline Phosphatase (45-117) U/L Total Creatine Kinase (26-192) U/L CK-MB (CK-2) (0.5-3.6) ng/ml CK/CKMB % Calc Troponin I (0-0.045) ng/ml NT-Pro-B Natriuret Pep (0-900) pg/ml Total Protein (6.4-8.2) gm/dl Albumin (3.4-5.0) gm/dl Globulin (2.5-4.0) gm/dl Albumin/Globulin Ratio (0.9-2) Urine Color Yellow Urine Appearance Clear (Clear) Urine pH 5.5 (4.5-7.5) Ur Specific [place] 1.018 (1.000-1.030) Urine Protein Negative (Negative) Urine Glucose (UA) 1+ H (Negative) Urine Ketones 1+ H (Negative) Urine Blood Negative (Negative) Urine Nitrite Negative (Negative) Urine Bilirubin Negative (Negative) Urine Urobilinogen Negative (Negative) Ur Leukocyte Esterase Negative (Negative) Nasal Screen MRSA (PCR) (Negative) Influenza Type A (PCR) Neg for Influ A (Neg) Influenza Type B (PCR) Neg for Influ B (Neg) Blood Type Blood Type Recheck A Positive Antibody Screen Crossmatch 07/17/18 07/17/18 07/17/18 Range/Units 18:14 18:14 17:09 WBC (4.8-10.8) K/uL RBC (4.2-5.4) M/uL Hgb (12.0-16.0) g/dL Hct (37-47) % MCV (80-100) fL MCH (25-34) pg MCHC (32-36) g/dL RDW Std Deviation (36.4-46.3) fL RDW Coeff of Rosa (11.5-14.5) % Plt Count (130-400) K/uL MPV (7.4-10.4) fL Immature Gran % (Auto) % Neut % (Auto) % Lymph % (Auto) % [place] % (Auto) % Eos % (Auto) % Baso % (Auto) % Immature Gran # (Auto) (0.00-0.02) K/uL Neut # (Auto) (1.4-6.5) K/uL Lymph # (Auto) (1.2-3.4) K/uL [place] # (Auto) (0.11-0.59) K/uL Eos # (Auto) (0-0.5) K/uL Baso # (Auto) (0-0.2) K/uL Absolute Nucleated RBC (0-0) K/uL Nucleated RBC % (auto) % PT (9.0-12.0) Seconds INR (0.9-1.1) APTT (21.0-31.0) Seconds PTT Ratio Sodium (136-145) mmol/L Potassium (3.5-5.1) mmol/L Chloride (98-107) mmol/L Carbon Dioxide (21-32) mmol/L Anion Gap (3-11) BUN (7-18) mg/dl Creatinine (0.6-1.2) mg/dl Est Cr Clr Drug Dosing ml/min Est GFR ( Amer) Est GFR (Non-Af Amer) BUN/Creatinine Ratio (10-20) Glucose (70-99) mg/dl POC Glucose (70-99) Estimat Average Glucose mg/dl Hemoglobin A1c (4.5-5.6) % Lactate 2.2 H* (0.4-2.0) mmol/L Calcium (8.5-10.1) mg/dl Magnesium (1.8-2.4) mg/dl Total Bilirubin (0.2-1) mg/dl Direct Bilirubin (0-0.2) mg/dl AST (15-37) U/L ALT (12-78) U/L Alkaline Phosphatase (45-117) U/L Total Creatine Kinase (26-192) U/L CK-MB (CK-2) (0.5-3.6) ng/ml CK/CKMB % Calc Troponin I (0-0.045) ng/ml NT-Pro-B Natriuret Pep 43 (0-900) pg/ml Total Protein (6.4-8.2) gm/dl Albumin (3.4-5.0) gm/dl Globulin (2.5-4.0) gm/dl Albumin/Globulin Ratio (0.9-2) Urine Color Urine Appearance (Clear) Urine pH (4.5-7.5) Ur Specific [place] (1.000-1.030) Urine Protein (Negative) Urine Glucose (UA) (Negative) Urine Ketones (Negative) Urine Blood (Negative) Urine Nitrite (Negative) Urine Bilirubin (Negative) Urine Urobilinogen (Negative) Ur Leukocyte Esterase (Negative) Nasal Screen MRSA (PCR) (Negative) Influenza Type A (PCR) (Neg) Influenza Type B (PCR) (Neg) Blood Type A Positive Blood Type Recheck Antibody Screen NEGATIVE Crossmatch See Detail 07/17/18 07/17/18 07/17/18 Range/Units 17:09 17:09 17:09 WBC 2.41 L (4.8-10.8) K/uL RBC 2.77 L (4.2-5.4) M/uL Hgb 8.4 L (12.0-16.0) g/dL Hct 25.2 L (37-47) % MCV 91.0 (80-100) fL MCH 30.3 (25-34) pg MCHC 33.3 (32-36) g/dL RDW Std Deviation 56.2 H (36.4-46.3) fL RDW Coeff of Rosa 17.3 H (11.5-14.5) % Plt Count 177 (130-400) K/uL MPV 9.1 (7.4-10.4) fL Immature Gran % (Auto) 2.9 % Neut % (Auto) 59.3 % Lymph % (Auto) 21.2 % [place] % (Auto) 14.1 % Eos % (Auto) 1.7 % Baso % (Auto) 0.8 % Immature Gran # (Auto) 0.07 H (0.00-0.02) K/uL Neut # (Auto) 1.43 (1.4-6.5) K/uL Lymph # (Auto) 0.51 L (1.2-3.4) K/uL [place] # (Auto) 0.34 (0.11-0.59) K/uL Eos # (Auto) 0.04 (0-0.5) K/uL Baso # (Auto) 0.02 (0-0.2) K/uL Absolute Nucleated RBC 0.03 H (0-0) K/uL Nucleated RBC % (auto) 1.4 % PT 11.7 (9.0-12.0) Seconds INR 1.2 H (0.9-1.1) APTT 28.2 (21.0-31.0) Seconds PTT Ratio 1.0 Sodium 132 L (136-145) mmol/L Potassium 3.8 (3.5-5.1) mmol/L Chloride 99 (98-107) mmol/L Carbon Dioxide 22 (21-32) mmol/L Anion Gap 11.0 (3-11) BUN 12 (7-18) mg/dl Creatinine 0.74 (0.6-1.2) mg/dl Est Cr Clr Drug Dosing 91.3 ml/min Est GFR ( Amer) 101.3 Est GFR (Non-Af Amer) 87.4 BUN/Creatinine Ratio 16.3 (10-20) Glucose 229 H (70-99) mg/dl POC Glucose (70-99) Estimat Average Glucose mg/dl Hemoglobin A1c (4.5-5.6) % Lactate (0.4-2.0) mmol/L Calcium 8.4 L (8.5-10.1) mg/dl Magnesium (1.8-2.4) mg/dl Total Bilirubin 1.4 H (0.2-1) mg/dl Direct Bilirubin (0-0.2) mg/dl AST 32 (15-37) U/L ALT 29 (12-78) U/L Alkaline Phosphatase 97 (45-117) U/L Total Creatine Kinase 77 (26-192) U/L CK-MB (CK-2) < 1.0 (0.5-3.6) ng/ml CK/CKMB % Calc TNP Troponin I < 0.015 (0-0.045) ng/ml NT-Pro-B Natriuret Pep (0-900) pg/ml Total Protein 5.9 L (6.4-8.2) gm/dl Albumin 2.8 L (3.4-5.0) gm/dl Globulin 3.1 (2.5-4.0) gm/dl Albumin/Globulin Ratio 0.9 (0.9-2) Urine Color Urine Appearance (Clear) Urine pH (4.5-7.5) Ur Specific [place] (1.000-1.030) Urine Protein (Negative) Urine Glucose (UA) (Negative) Urine Ketones (Negative) Urine Blood (Negative) Urine Nitrite (Negative) Urine Bilirubin (Negative) Urine Urobilinogen (Negative) Ur Leukocyte Esterase (Negative) Nasal Screen MRSA (PCR) (Negative) Influenza Type A (PCR) (Neg) Influenza Type B (PCR) (Neg) Blood Type Blood Type Recheck Antibody Screen Crossmatch (1) Breast cancer, right breast Patient sex: female (2) Sepsis Sepsis type: sepsis due to unspecified organism Qualified Code(s): A41.9 - Sepsis, unspecified organism
[2018-07-18] MEDS: VANCOMYCIN HCL 1,250 MG in SODIUM CHLORIDE 0.9% 250 ML IV SCH (15:19)
[2018-07-18] MEDS: SODIUM CHLORIDE 0.9% 1000ML 1,000 ML IV SCH (16:58)
[2018-07-19] MEDS: CEFEPIME 2,000 MG in SYRINGE 7.5 ML IV SCH ×3 (03:32→17:46)
[2018-07-19] MEDS: VANCOMYCIN HCL 1,250 MG in SODIUM CHLORIDE 0.9% 250 ML IV SCH ×2 (03:32→15:30)
[2018-07-19] MEDS: LEVOTHYROXINE SODIUM 200 MCG TABLET PO SCH (05:52)
[2018-07-19] MEDS: SODIUM CHLORIDE 0.9% 1000ML 1,000 ML IV SCH (05:52)
[2018-07-19] MEDS: LEVOTHYROXINE SODIUM 25 MCG TABLET PO SCH (05:52)
[2018-07-19 06:23] LABS: Hematocrit (blood only) 29.8 % (37-47); Hemoglobin 9.8 g/dL (12.0-16.0); Mean Corpuscular Hgb Conc 32.9 g/dL (32-36); Mean Corpuscular Volume 89.8 fL (80-100); Mean Platelet Volume 9.9 fL (7.4-10.4); Platelet Count 170 K/uL (130-400); RDW Coefficient of Variation 18.7 % (11.5-14.5); RDW Standard Deviation 59.1 fL (36.4-46.3); Red Blood Count 3.32 M/uL (4.2-5.4)
[2018-07-19 06:57] LABS: Albumin Level 2.4 gm/dl (3.4-5.0); BUN Creatinine Ratio 12.2 (10-20); Calcium 7.8 mg/dl (8.5-10.1); Creatinine Clr Calc Pharmacy 105.3 ml/min; Est GFR (African American) 111.6; Est GFR (Non-African American) 96.3; Magnesium 1.9 mg/dl (1.8-2.4); Potassium 3.2 mmol/L (3.5-5.1)
[2018-07-19 06:58] LABS: Albumin Globulin Ratio 0.8 (0.9-2); Bilirubin,Total 1.3 mg/dl (0.2-1); Globulin 3.1 gm/dl (2.5-4.0); Total Protein 5.5 gm/dl (6.4-8.2)
[2018-07-19] MEDS: GABAPENTIN 100 MG CAP PO SCH ×3 (07:34→22:31)
[2018-07-19] MEDS: FLUOXETINE HCL 20 MG CAP PO SCH (07:36)
[2018-07-19] MEDS: LOSARTAN POTASSIUM 50 MG TAB PO SCH (07:36)
[2018-07-19] MEDS: METOPROLOL SUCC 25MG EXT REL TAB PO SCH (07:36)
[2018-07-19] MEDS: ENOXAPARIN INJ 40 MG/0.4 ML SYR SQ SCH (07:37)
[2018-07-19] MEDS ORDERED: POTASSIUM CHLORIDE 20 MEQ TABCR PO STA (08:19)
[2018-07-19] MEDS: INSULIN ASPART 100 UNITS/ML 3 ML PEN SC SCH ×4 (09:02→22:33)
[2018-07-19] MEDS: INSULIN GLARGINE SOLOSTAR 100 UNITS/ML 3 ML PEN SC SCH (09:03)
[2018-07-19] MEDS: AZITHROMYCIN 500 MG in DEXTROSE 5% 250 ML IV SCH (09:05)
[2018-07-19] MEDS ORDERED: ONDANSETRON 4 MG TAB PO PRN (09:26)
[2018-07-19] MEDS ORDERED: GUAIFENESIN/DEXTROM SYRUP 200MG/20MG 10ML UDC PO PRN (09:40)
[2018-07-19] MEDS ORDERED: ALBUT/IPRATROP 3MG/0.5MG NEB 3 ML VIAL NEB PRN (09:46)
--- NOTE | 2018-07-19 12:32 | XRay Report ---
XR chest 1V portable HISTORY: 63 years-old Female SOB, rule out pulm edema vs. worsening PNA acute shortness of breath wi th concern for pneumonia and/or pulmonary edema COMPARISON: Chest radiograph and CTA chest 07/17/2018 TECHNIQUE: Portable AP view of the chest FINDINGS: Cardiac silhouette is enlarged. Pulmonary vascular congestion. Stable positioning of left subclavian [id number] catheter. There is no pneumothorax or large pleural effusion. Mild blunting of the righ t costophrenic angle. Progressed bilateral mixed interstitial and alveolar opacities. Degenerative ch anges of the shoulders and spine. IMPRESSION: 1. Severe mixed bilateral interstitial and alveolar opacities have progressed from prior suggestive o f diffuse multifocal pneumonia versus pulmonary edema. 2. Suspected trace right pleural effusion. 3. Cardiomegaly. The above report was generated using voice recognition software. It may contain grammatical, syntax o r spelling errors. Electronically signed by: Darius Love M.D. 07/19/2018 12:31 PM
[2018-07-19] MEDS ORDERED: PHARMACY GLYCEMIC MGMT CONSULT PRN (14:25)
--- NOTE | 2018-07-19 14:40 | Hospitalist Progress Note ---
Date of Service July 19, 2018 Assessment & Plan (1) Sepsis: - Febrile, tachycardic with pulmonary source. Lactic acid level was 2.2. - Received IV fluids -- will discontinue. - Treatment of pneumonia as noted below. - Blood cultures negative. (2) Multifocal pneumonia: - CT chest showed multifocal PNA. - Continue Cefepime/Azithromycin/Vancomycin for empiric coverage -- consider adding aspiration coverage. - CXR today showed severe interstitial and alveolar opacities that have progressed. - Robitussin DM prn cough. - Duonebs q6hr scheduled while awake. (3) Acute respiratory failure with hypoxia: - O2 requirements increased to 6L via oxymask -- may be related to multifocal PNA vs. chemo induced interstitial lung disease vs. other. - ICU consulted, recommended upgrade to PCU with telemetry. - CXR showed progression of bilateral interstitial and alveolar opacities. - Echo pending to evaluate EF. - IV abx as noted above for PNA. - Start Solu-medrol 60 mg IV q6hr for treatment of chemo induced interstitial lung disease. (4) Diarrhea: - C. diff pending - has not had a BM. (5) Breast cancer, right breast: - Currently receiving Taxol chemotherapy weekly. - Consider oncology consult. (6) Anemia: - In setting of chemotherapy. - Hgb 8.4 at admission, received 2 units pRBCs with improvement. - Monitor CBC qAM. (7) DM II (diabetes mellitus, type II), controlled: - Hgb A1C was 7.2 - Pharmacy consulted for glycemic management in setting of IV steroids. (8) Hypothyroidism: - Continue Synthroid 225 mcg daily. - Most recent TSH was 3.6 in Feb 2018. (9) HLD (hyperlipidemia): - Not currently on treatment. (10) Benign essential HTN: - Continue Losartan, Metoprolol as prescribed. - Hold home HCTZ in setting of dehydration. (11) Depression: - Continue Prozac as prescribed. (12) Back pain: - Continue Gabapentin as prescribed. (13) Electrolyte abnormality: - K level 3.2 - potassium chloride 40 mEq PO. (14) DVT prophylaxis: - Lovenox q24hr. Dispo: Upgrade to PCU/telemetry, continue treatment for multifocal PNA and IV steroids for interstitial lung disease. Supervising Physician Co-Signing Physician Notes PA Supervision Note: I personally saw and examined the patient. I verified all victor points and agree with MAURICIO Sarah with the following exceptions and/or additions: Went to see this patient as she was having increased oxygen requirements and tachypnea. Her chest x-ray was personally reviewed by me and showed diffuse white out bilaterally that I thought was consistent with ARDS. The patient actually reported feeling pretty comfortable, but that she just could not take a deep breath and when she tried, felt like her breath got caught in her chest and caused her to cough. Denied chest pain. She is coughing but not bringing anything up at this time. Denied diarrhea today. Vitals reviewed Patient is morbidly obese, has a thick neck, had nasal cannula in place Tachycardic, regular rhythm, no murmur Lungs with diminished breath sounds throughout, along with diffuse crackles Abdomen positive bowel sounds, soft, morbidly obese, nontender, nondistended Legs without edema Labs reviewed including ABG 7.48/29/48 consistent with respiratory alkalosis and hypoxemia Chest x-ray image personally reviewed by me as above 63-year-old female here with metastatic breast cancer on chemotherapy, here with fevers, sepsis, multifocal pneumonia, and now likely with ARDS and severe acute hypoxic respiratory failure -Continue broad-spectrum antibiotics given immune suppression and follow all cultures -Appreciate pulmonary/critical care consultation and management-now on high flow nasal cannula and consider noninvasive positive pressure ventilation versus intubation if decompensates overnight -Have DC'd IV fluids and critical care has now ordered IV Lasix -Other care as outlined above Subjective Pt. has a productive cough with SOB. Was previously requiring 4L via NC, now increased to 6L via oxymask due to decreased O2 sats. Complains of pain in upper chest. Denies nasal congestion, sore throat. ICU consulted, recommended upgrade to PCU for close monitoring. Review of Systems Review of Systems: All systems reviewed & are unremarkable except as noted in HPI & below Constitutional: no fever, no chills, no fatigue and no weakness Ear, Nose, Mouth, Throat: no nasal congestion, no nasal discharge, no post nasal drip and no sore throat Respiratory: + cough, + chest congestion, + dyspnea, + dyspnea on exertion and + sputum production; no wheezing Cardiovascular: no chest pain, no palpitations, no syncope and no edema Gastrointestinal: + diarrhea/loose stools; no abdominal pain, no nausea and no vomiting Genitourinary: no difficulty urinating Musculoskeletal: no back pain and no joint pain Integumentary: no non-healing lesions Allergy / Immunological: no rash Physical Exam Physical Exam: General: Resting comfortably in no apparent distress; A&OX3 HEENT: NC/AT; PERRLA with EOMI; Dry oral mucosa. Neck: Supple and nontender Cardiac: RRR w/o murmurs, gallops or rubs Lungs: 6L via oxymask; clear throughout. Abdomen: Bowel normoactive X 4; Nontender to palpation Extremities: Warm. No LE edema noted. Neuro: No focal weakness Skin: No rash Results & Data Vital Signs (Past 12 Hours) Vital Signs Temp Pulse Pulse Resp BP Pulse Ox 07/19/18 12:00 37.7 C H 104 H 20 125/73 87 L 07/19/18 11:57 100 H 22 86 L 07/19/18 07:36 37.6 C H 97 H 22 116/71 93 07/19/18 07:07 90 16 98 07/19/18 03:00 36.7 C 82 20 124/70 93 Laboratory Results 07/19/18 07/19/18 07/19/18 Range/Units 11:29 07:56 05:29 WBC (4.8-10.8) K/uL RBC (4.2-5.4) M/uL Hgb (12.0-16.0) g/dL Hct (37-47) % MCV (80-100) fL MCH (25-34) pg MCHC (32-36) g/dL RDW Std Deviation (36.4-46.3) fL RDW Coeff of Rosa (11.5-14.5) % Plt Count (130-400) K/uL MPV (7.4-10.4) fL Sodium 137 (136-145) mmol/L Potassium 3.2 L (3.5-5.1) mmol/L Chloride 106 (98-107) mmol/L Carbon Dioxide 25 (21-32) mmol/L Anion Gap 6.0 (3-11) BUN 8 (7-18) mg/dl Creatinine 0.64 (0.6-1.2) mg/dl Est Cr Clr Drug Dosing 105.3 ml/min Est GFR ( Amer) 111.6 Est GFR (Non-Af Amer) 96.3 BUN/Creatinine Ratio 12.2 (10-20) Glucose 135 H (70-99) mg/dl POC Glucose 247 H 152 H (70-99) Calcium 7.8 L (8.5-10.1) mg/dl Magnesium 1.9 (1.8-2.4) mg/dl Total Bilirubin 1.3 H (0.2-1) mg/dl AST 31 (15-37) U/L ALT 20 (12-78) U/L Alkaline Phosphatase 76 (45-117) U/L Total Protein 5.5 L (6.4-8.2) gm/dl Albumin 2.4 L (3.4-5.0) gm/dl Globulin 3.1 (2.5-4.0) gm/dl Albumin/Globulin Ratio 0.8 L (0.9-2) 07/19/18 07/18/18 07/18/18 Range/Units 05:29 21:28 16:26 WBC 3.80 L (4.8-10.8) K/uL RBC 3.32 L (4.2-5.4) M/uL Hgb 9.8 L (12.0-16.0) g/dL Hct 29.8 L (37-47) % MCV 89.8 (80-100) fL MCH 29.5 (25-34) pg MCHC 32.9 (32-36) g/dL RDW Std Deviation 59.1 H (36.4-46.3) fL RDW Coeff of Rosa 18.7 H (11.5-14.5) % Plt Count 170 (130-400) K/uL MPV 9.9 (7.4-10.4) fL Sodium (136-145) mmol/L Potassium (3.5-5.1) mmol/L Chloride (98-107) mmol/L Carbon Dioxide (21-32) mmol/L Anion Gap (3-11) BUN (7-18) mg/dl Creatinine (0.6-1.2) mg/dl Est Cr Clr Drug Dosing ml/min Est GFR ( Amer) Est GFR (Non-Af Amer) BUN/Creatinine Ratio (10-20) Glucose (70-99) mg/dl POC Glucose 168 H 219 H (70-99) Calcium (8.5-10.1) mg/dl Magnesium (1.8-2.4) mg/dl Total Bilirubin (0.2-1) mg/dl AST (15-37) U/L ALT (12-78) U/L Alkaline Phosphatase (45-117) U/L Total Protein (6.4-8.2) gm/dl Albumin (3.4-5.0) gm/dl Globulin (2.5-4.0) gm/dl Albumin/Globulin Ratio (0.9-2) (1) Breast cancer, right breast Patient sex: female (2) Sepsis Sepsis type: sepsis due to unspecified organism Qualified Code(s): A41.9 - Sepsis, unspecified organism
[2018-07-19] MEDS ORDERED: methylPREDNISolone 60 MG in SYRINGE 0 ML IV ONE (14:45)
[2018-07-19] MEDS ORDERED: INSULIN GLARGINE SOLOSTAR 100 UNITS/ML 3 ML PEN SC ONE (15:00)
--- NOTE | 2018-07-19 15:09 | Pharmacy Report ---
Pharmacy Glycemic Short Note 2 - Date of Service July 19, 2018 - Glycemic Short BSG Results (Last 24 hours): 07/18/18 07/18/18 07/19/18 16:26 21:28 05:29 Glucose 135 H POC Glucose 219 H 168 H 07/19/18 07/19/18 07:56 11:29 Glucose POC Glucose 152 H 247 H OUTPATIENT ANTIDIABETIC REGIMEN: * Tresiba 60-65 units SQ daily * Novolog 9 units with break/13 units with lunch/15 units with dinner + sliding scale * Metformin 1000 mg PO BID * Doses from [employer] (may 2018 visit) - of note, patient recently on DXM as out patient * A1c 7.2% 07/18/18 ASSESSMENT: * Kassi is a 63 yr old T2DM female admitted for acute respiratory failure likely due to pneumonia. She has been started on Solu-medrol 60 mg IV q6hr for treatment of chemo induced interstitial lung disease. She received a total of 61 units of insulin yesterday with all BSGs above goal range. * She takes large doses of insulin as an outpatient (over 100 units per day). * Changes needed to insulin regimen: * Increase basal insulin. Kassi received a total of 40 units of Lantus yesterday (compared to 60-65 units at home). Fasting BSG from this morning was elevated, 152 mg/dL. A dose of 20 units will be given now, then BID per scale. * Tighten Novolog CF/CR and add overnight checks * If BSGs remain > 250 mg/dL despite changes, patient may require IV insulin infusion PLAN FOR INPATIENT GLYCEMIC CONTROL: * Hold outpatient oral diabetes medications * Basal insulin * Lantus 20 units SQ given this AM * Extra 20 units of Lantus now, then per scale BID: * 20 units for BSG < 140 (total of 60 units for today) * 30 units for BSG 140 - 200 (total of 70 units for today) * 35 units for BSG > 200 (total of 75 units for today) * Bolus insulin - tighten * NovoLog per scale ACHS or Q6hrs while NPO * Goal Range: Low 120 mg/dL - High 160 mg/dL * Correction Factor: 12 mg/dL/unit * Nutritional / Prandial insulin per carb ratio of 1 unit per 4 grams CHO consumed * Overnight checks at 00 and 04
[2018-07-19] MEDS: LIDOCAINE HCL 2% VISCOUS 60 ML, DiphenhydrAMINE Syrup 150 MG, ALUMINUM/MAGNESIUM SUSP 6... MT PRN (15:11)
--- NOTE | 2018-07-19 15:20 | Pulmonary Consultation ---
Date of Consultation July 19, 2018 Assessment & Plan (1) Acute respiratory failure with hypoxia: Impression: 1. Pulmonary edema, noncardiogenic versus cardiogenic, I would favor the first. The patient received chemotherapy which could cause her cardiomyopathy as well, she received chemotherapy which could cause DILD. 2. Acute lung injury, by definition, consistent with the above. Lymphangitic carcinomatosa cannot be totally excluded but the patient does not have significant metastasis to the lungs to begin with. 3. Less likely to be community-acquired pneumonia. 4. Acute hypoxic respiratory failure. 5. Diabetes mellitus. Plan: 1. I will start moderate dose of steroids including Solu-Medrol 60 mg IV every 6 hours. 2. Continue with oxygen. 3. Agree with broad-spectrum antibiotics. 4. Obtain echocardiogram to evaluate for cardiomyopathy. Previous echo was done in February 2018 showed normal ejection fraction, RA pressure was elevated to 15. 5. Transfer the patient to a telemetry floor. Thank you, will follow. History of Present Illness Reason for Consultation: Acute respiratory failure Requesting Physician: Dr. Lee Attending Physician: Stephanie Lee MD History of Present Illness Dear Dr. Lee, Dear Kim, Thank you for the kind referral of Mrs. Mckay to pulmonary service. This is 63-year-old female with a history of diabetes, morbid obesity, metastatic breast CA status post bilateral mastectomy in November 2017, status post chemotherapy x4 cycles followed by Taxol, she was in preparation to have radiation but she has not had this, presented to the hospital with increasing fatigue and shortness of breath, the patient was treated as an outpatient with doxycycline without benefit, the patient was admitted to the hospital and started on oxygen as well as broad-spectrum antibiotics. It was noted that the patient oxygen requirement is increasing. And we were consulted to evaluate the patient. The patient denies any chest pain, she does have cough with sputum production which was colored and now turning into white-colored. She denies any wheezing, she does have dyspnea on exertion and increased swelling in her lower extremities, she did not have increased abdominal girth, no nausea or vomiting and no hea rtburn. No dizziness or loss of consciousness. She does have Port-A-Cath on the left subclavian area which appears to be well maintained. No dysuria no diarrhea and no increased frequency of urination. The rest of her review of system was unremarkable. She did have constitutional symptoms at home a week ago. Allergies Allergy/AdvReac Type Severity Reaction Status Date / Time adhesive Allergy Unknown "BLISTERS Verified 07/17/18 20:27 AND PULLS MY SKIN OFF" codeine AdvReac Mild Nausea Verified 07/17/18 20:27 erythromycin base AdvReac Unknown STOMACH Verified 07/17/18 20:27 PAIN indomethacin AdvReac Unknown "THINS Verified 07/17/18 20:27 BLOOD OUT TOO MUCH" valacyclovir [From Valtrex] AdvReac Unknown Palpitation Verified 07/17/18 20:27 s Home Medications Home Medications Medication Instructions Recorded Confirmed Type Novolog U-100 Insulin aspart 9 unit SUBCUT QAM 01/15/18 07/17/18 History Novolog U-100 Insulin aspart 13 unit SUBCUT 1200 01/15/18 07/17/18 History Novolog U-100 Insulin aspart 15 unit SUBCUT PM 01/15/18 07/17/18 History aspirin [Aspir-81] 81 mg PO QAM 01/15/18 07/17/18 History cyclobenzaprine 10 mg PO TID PRN 01/15/18 07/17/18 History fluoxetine 40 mg PO QAM 01/15/18 07/17/18 History gabapentin 200 mg PO TID 01/15/18 07/17/18 History hydrocodone-acetaminophen 0 tab PO UNKNOWN PRN 01/15/18 07/17/18 History levothyroxine 225 mcg PO QAM 01/15/18 07/17/18 History losartan-hydrochlorothiazide 1 tab PO QAM 01/15/18 07/17/18 History meclizine 25 mg PO DAILY PRN 01/15/18 07/17/18 History metformin 1,000 mg PO BID 01/15/18 07/17/18 History vitamin V11-gfflx acid 1 tab PO QAM 01/15/18 07/17/18 History egvey-um-5-caj-tcn-actdprt-ast 2 cap PO QAM 02/20/18 07/17/18 History [krill oil] cholecalciferol (vitamin D3) 2,000 unit PO DAILY 02/23/18 07/17/18 History [Vitamin D3] ondansetron HCl [Zofran] 4 mg PO TID PRN 03/05/18 07/17/18 History dexamethasone 0 mg PO DAILY 07/17/18 07/17/18 History insulin degludec [Tresiba 0 units SUBCUT DAILY 07/17/18 07/17/18 History FlexTouch U-200] metoprolol succinate 25 mg PO DAILY 07/17/18 07/17/18 History tramadol 0 mg PO Q6H PRN 07/17/18 07/17/18 History Patient History Medical History Anxiety PANIC ATTACKS Cancer BREAST CANCER-RIGHT SIDE Degenerative disc disease Depression Diabetes mellitus, type 2 INSULIN/ORAL MEDS-NO NEUROPATHY Diabetes mellitus, type 2 Fatty liver GERD (gastroesophageal reflux disease) History of recent steroid use Hx of breast cancer HX OF BILATERAL MASTECTOMY NOV 2017. 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 DO NOT USE RIGHT ARM History of tonsillectomy Family History Mother Family history of diabetes mellitus Family/Other Family history of diabetes mellitus AUNTS/UNCLES Social History Preferred Language: Azeri Communication Ability: Effective Visual Impairment: No Limitations Drapery Hanger Required: No Beliefs That Will Affect Care: None Current Living Situation: Spouse Other Information That Helps Us Care for You: No Feels Safe at Home: Yes Safety Concerns: Feels Safe At This Time Smoking Status: Former smoker Tobacco Type: cigarettes Cigarettes Per Day: HX OF 1.5 PPD X 10 YEARS (STARTED OUT AT ABOUT 1/2 PPD) Second Hand Exposure: Yes Hx Alcohol Use: Yes Alcohol type: hard liquor Hx Substance Use: No Review of Systems Review of Systems: Apart from the above, 14 systems has been reviewed, otherwise were unremarkable. Physical Exam Physical Exam: 63-year-old female does not appear to be in respiratory distress, speaks in full sentences, no skin rash, she does have crackles bilaterally, heart examination S1-S2 regular rate and rhythm with systolic ejection murmur, abdomen is obese but benign, trace edema in the periphery, neurologically she is nonfocal. Oral hygiene appears to be borderline. No oral lesions. Results & Data Vital Signs (Past 12 Hours) Vital Signs Temp Pulse Pulse Resp BP Pulse Ox 07/19/18 12:10 91 07/19/18 12:00 37.7 C H 104 H 20 125/73 87 L 07/19/18 11:57 100 H 22 86 L 07/19/18 07:36 37.6 C H 97 H 22 116/71 93 07/19/18 07:07 90 16 98 Laboratory Results Labs were reviewed which showed anemia, leukopenia, stable BMP, albumin is 2.4. Diagnostic Findings Chest x-ray followed by a CAT scan of the chest which I reviewed personally showed airspace disease and interstitial pattern consistent with acute lung injury.
[2018-07-19] MEDS ORDERED: FUROSEMIDE 40 MG/4 ML VIAL IV STA (15:30)
[2018-07-19] MEDS ORDERED: VANCOMYCIN TROUGH ONE (15:30)
[2018-07-19] MEDS ORDERED: FUROSEMIDE 40 MG in SYRINGE 0 ML IV ONE (15:45)
[2018-07-19] MEDS: ALBUT/IPRATROP 3MG/0.5MG NEB 3 ML VIAL NEB SCH ×2 (15:54→19:41)
[2018-07-19 16:25] LABS: Allen Test Pos (Pos); HCO3 ABG 21 mmol/L (19-24); PCO2 ABG 29 mmHg (35-46); PO2 ABG 48 mm/Hg (80-95); pH ABG 7.48 (7.35-7.45)
--- NOTE | 2018-07-19 16:25 | Pharmacy Report ---
Pharmacy Abx Dose Short Note - Date of Service July 19, 2018 - Assessment & Plan Assessment 63 year old F receiving Vancomycin for treatment of Pneumonia Day # 2 of antimicrobial therapy. Plan Vancomycin * Trough level of 11 mcg/mL is subtherapeutic; however this was checked early after only 2 maintenance doses and is therefore not at steady state. * Trough level should continue to rise in the setting of obesity (BMI = 51.6 kg/m2) * Continue dose of Vanco 1250 mg IV q12h and re-check level after 2 more doses. * Goal trough level for Pneumonia: 15 to 20 mcg/mL * Trough Vanco level ordered for: 07/21/18 before dose at 0400 Pharmacy will continue to follow and will adjust dose/frequency as necessary. Thank you.
--- NOTE | 2018-07-19 17:20 | XRay Report ---
XR chest 1V portable HISTORY: 63 years-old Female worsening ards acute shortness of breath COMPARISON: Chest radiograph 07/19/2018 TECHNIQUE: Portable AP view of the chest FINDINGS: Stable positioning of left subclavian Guaqfd-v-Fsuj catheter. Unchanged bilateral extensive mixed int erstitial and alveolar opacities redemonstrated. Cardiac silhouette is enlarged. Possible trace pleur al effusions without pneumothorax. Degenerative changes of the shoulders and spine. IMPRESSION: 1. Unchanged extensive bilateral mixed interstitial and alveolar opacities. 2. Suggestion of trace pleural effusions. 3. Cardiomegaly. The above report was generated using voice recognition software. It may contain grammatical, syntax o r spelling errors. Electronically signed by: Darius Love M.D. 07/19/2018 5:18 PM
[2018-07-19] MEDS: methylPREDNISolone 60 MG in SYRINGE 0 ML IV SCH (19:43)
--- NOTE | 2018-07-19 20:28 | Emergency Department Note ---
Entered by Jaime Garcia acting as a scribe for Bill Gunn MD History of Present Illness General Chief complaint: Shortness of Breath/Dyspnea Stated complaint: SOB Time Seen by Provider: 07/17/18 17:08 Source: patient History of Present Illness Onset (ago): hour(s) (prior to arrival) Location: chest (lungs) Pain Consistency: + other (currently improved) Quality: + other (shortness of breath) Relieved By: + medication (Tylenol and supplemental oxygen in ambulance) Associated symptoms: + cough, + diaphoresis, + fever/chills, + headaches and + weakness The patient is a 63 year old female with breast cancer who presents to the Emergency Room with complaints of shortness of breath beginning prior to arrival. The patient reports that she felt like she could not inhale properly, but her symptoms were improved after administration of supplemental oxygen and Tylenol in the ambulance. The patient reports that she finished a course of doxycycline last week for a cough productive of green sputum. Her cough returned later that week, then productive of white sputum. She reports recent headache, weakness, dizziness, diaphoresis, fevers, and intermittent chills/hot flashes over the past few days. She states that the headache is not the worst of her life. She reports that she is receiving chemotherapy, but last week she did not receive it because her WBC was too low. She states that over the past week she has not been taking her daily aspirin. Home Medications Home Medications Medication Instructions Recorded Confirmed Type Novolog U-100 Insulin aspart 9 unit SUBCUT QAM 01/15/18 07/17/18 History Novolog U-100 Insulin aspart 13 unit SUBCUT 1200 01/15/18 07/17/18 History Novolog U-100 Insulin aspart 15 unit SUBCUT PM 01/15/18 07/17/18 History aspirin [Aspir-81] 81 mg PO QAM 01/15/18 07/17/18 History cyclobenzaprine 10 mg PO TID PRN 01/15/18 07/17/18 History fluoxetine 40 mg PO QAM 01/15/18 07/17/18 History gabapentin 200 mg PO TID 01/15/18 07/17/18 History hydrocodone-acetaminophen 0 tab PO UNKNOWN PRN 01/15/18 07/17/18 History levothyroxine 225 mcg PO QAM 01/15/18 07/17/18 History losartan-hydrochlorothiazide 1 tab PO QAM 01/15/18 07/17/18 History meclizine 25 mg PO DAILY PRN 01/15/18 07/17/18 History metformin 1,000 mg PO BID 01/15/18 07/17/18 History vitamin Z98-[id number] acid 1 tab PO QAM 01/15/18 07/17/18 History ntojo-ft-4-[id number]-ycn-wakkciz-ast 2 cap PO QAM 02/20/18 07/17/18 History [krill oil] cholecalciferol (vitamin D3) 2,000 unit PO DAILY 02/23/18 07/17/18 History [Vitamin D3] ondansetron HCl [Zofran] 4 mg PO TID PRN 03/05/18 07/17/18 History dexamethasone 0 mg PO DAILY 07/17/18 07/17/18 History insulin degludec [Tresiba 0 units SUBCUT DAILY 07/17/18 07/17/18 History FlexTouch U-200] metoprolol succinate 25 mg PO DAILY 07/17/18 07/17/18 History tramadol 0 mg PO Q6H PRN 07/17/18 07/17/18 History Allergies Allergy/AdvReac Type Severity Reaction Status Date / Time adhesive Allergy Unknown "BLISTERS Verified 07/17/18 20:27 AND PULLS MY SKIN OFF" codeine AdvReac Mild Nausea Verified 07/17/18 20:27 erythromycin base AdvReac Unknown STOMACH Verified 07/17/18 20:27 PAIN indomethacin AdvReac Unknown "THINS Verified 07/17/18 20:27 BLOOD OUT TOO MUCH" valacyclovir [From Valtrex] AdvReac Unknown Palpitation Verified 07/17/18 20:27 s Past Med/Surg History Medical History Anxiety PANIC ATTACKS Cancer BREAST CANCER-RIGHT SIDE Degenerative disc disease Depression Diabetes mellitus, type 2 INSULIN/ORAL MEDS-NO NEUROPATHY Diabetes mellitus, type 2 Fatty liver GERD (gastroesophageal reflux disease) History of recent steroid use Hx of breast cancer HX OF BILATERAL MASTECTOMY NOV 2017. 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 DO NOT USE RIGHT ARM History of tonsillectomy Family History Mother Family history of diabetes mellitus Family/Other Family history of diabetes mellitus AUNTS/UNCLES Social History Preferred Language: Latvian Communication Ability: Effective Visual Impairment: No Limitations Motorized [employer] Sergeant Required: No Beliefs That Will Affect Care: None Current Living Situation: Spouse Other Information That Helps Us Care for You: No Feels Safe at Home: Yes Safety Concerns: Feels Safe At This Time Smoking Status: Former smoker Tobacco Type: cigarettes Cigarettes Per Day: HX OF 1.5 PPD X 10 YEARS (STARTED OUT AT ABOUT 1/2 PPD) Second Hand Exposure: Yes Hx Alcohol Use: Yes Alcohol type: hard liquor Hx Substance Use: No Review of Systems See HPI for pertinent positives & negatives. and A total of 10 systems reviewed and were otherwise negative Physical Exam Vital Signs Vital Signs - 24 hr 07/18/18 21:30 07/18/18 23:00 07/19/18 03:00 Temperature 38.2 C H 36.7 C Temperature Source Oral Oral Pulse Rate Pulse Rate [Left Brachial] Pulse Rate [Right Apical] 99 H 82 Pulse Rate from SpO2 Sensor Pulse Rhythm [Left Brachial] Pulse Strength [Left Brachial] Respiratory Rate 20 20 Respiratory Effort / Characteristics SOB on Exertion Respiratory Depth Normal Respiratory Pattern Blood Pressure Blood Pressure [Left Arm] 122/71 124/70 Blood Pressure Mean Blood Pressure Mean [Left Arm] 88 88 Blood Pressure Position [Left Arm] Lying Lying Pulse Oximetry 87 L 93 Oxygen Delivery Method Nasal Cannula Nasal Cannula Nasal Cannula Oxygen Flow Rate 3 23 4 Fraction of Inspired Oxygen SaO2/FiO2 Ratio 07/19/18 07:07 07/19/18 07:36 07/19/18 08:00 Temperature 37.6 C H Temperature Source Oral Pulse Rate Pulse Rate [Left Brachial] Pulse Rate [Right Apical] 90 97 H Pulse Rate from SpO2 Sensor Pulse Rhythm [Left Brachial] Pulse Strength [Left Brachial] Respiratory Rate 16 22 Respiratory Effort / Characteristics Non-Labored Spontaneous SOB on Exertion Respiratory Depth Respiratory Pattern Blood Pressure Blood Pressure [Left Arm] 116/71 Blood Pressure Mean Blood Pressure Mean [Left Arm] 86 Blood Pressure Position [Left Arm] Lying Pulse Oximetry 98 93 Oxygen Delivery Method Nasal Cannula Nasal Cannula Nasal Cannula Oxygen Flow Rate 4 4 4 Fraction of Inspired Oxygen SaO2/FiO2 Ratio 07/19/18 11:57 07/19/18 12:00 07/19/18 12:10 Temperature 37.7 C H Temperature Source Oral Pulse Rate Pulse Rate [Left Brachial] 104 H Pulse Rate [Right Apical] 100 H Pulse Rate from SpO2 Sensor Pulse Rhythm [Left Brachial] Pulse Strength [Left Brachial] Respiratory Rate 22 20 Respiratory Effort / Characteristics Non-Labored Spontaneous Respiratory Depth Respiratory Pattern Blood Pressure Blood Pressure [Left Arm] 125/73 Blood Pressure Mean Blood Pressure Mean [Left Arm] 90 Blood Pressure Position [Left Arm] Semi-fowlers Pulse Oximetry 86 L 87 L 91 Oxygen Delivery Method Nasal Cannula Nasal Cannula Oxymask Oxygen Flow Rate 4 4 6 Fraction of Inspired Oxygen SaO2/FiO2 Ratio 07/19/18 15:15 07/19/18 15:40 07/19/18 15:55 Temperature 37.1 C Temperature Source Oral Pulse Rate Pulse Rate [Left Brachial] 103 H 107 H Pulse Rate [Right Apical] Pulse Rate from SpO2 Sensor Pulse Rhythm [Left Brachial] Regular Pulse Strength [Left Brachial] Normal Respiratory Rate 24 30 H Respiratory Effort / Characteristics Labored SOB on Exertion Spontaneous Labored SOB on Exertion Spontaneous Respiratory Depth Normal Shallow Respiratory Pattern Tachypnea Tachypnea Blood Pressure Blood Pressure [Left Arm] 113/65 Blood Pressure Mean Blood Pressure Mean [Left Arm] 81 Blood Pressure Position [Left Arm] Lying Pulse Oximetry 89 L 86 L Oxygen Delivery Method Oxymask High Flow Nasal Cannula Oxymask Oxygen Flow Rate 15 35 15 Fraction of Inspired Oxygen 50 SaO2/FiO2 Ratio 07/19/18 15:57 07/19/18 17:37 07/19/18 19:03 Temperature Temperature Source Pulse Rate 100 H Pulse Rate [Left Brachial] 107 H 103 H Pulse Rate [Right Apical] Pulse Rate from SpO2 Sensor 101 H Pulse Rhythm [Left Brachial] Regular Pulse Strength [Left Brachial] Respiratory Rate 24 38 H 17 Respiratory Effort / Characteristics Spontaneous Labored SOB on Exertion Respiratory Depth Shallow Respiratory Pattern Rapid/Shallow Tachypnea Blood Pressure Blood Pressure [Left Arm] 113/54 L Blood Pressure Mean Blood Pressure Mean [Left Arm] 73 Blood Pressure Position [Left Arm] Pulse Oximetry 93 94 91 Oxygen Delivery Method High Flow Nasal Cannula High Flow Nasal Cannula Oxygen Flow Rate 30 30 Fraction of Inspired Oxygen 100 100 SaO2/FiO2 Ratio 94 07/19/18 19:04 07/19/18 19:30 07/19/18 19:31 Temperature Temperature Source Pulse Rate 99 H 93 H 94 H Pulse Rate [Left Brachial] Pulse Rate [Right Apical] Pulse Rate from SpO2 Sensor 99 H 93 H 93 H Pulse Rhythm [Left Brachial] Pulse Strength [Left Brachial] Respiratory Rate 30 H 30 H 35 H Respiratory Effort / Characteristics Respiratory Depth Respiratory Pattern Blood Pressure 103/88 116/66 Blood Pressure [Left Arm] Blood Pressure Mean 93 82 Blood Pressure Mean [Left Arm] Blood Pressure Position [Left Arm] Pulse Oximetry 92 97 98 Oxygen Delivery Method Oxygen Flow Rate Fraction of Inspired Oxygen SaO2/FiO2 Ratio 07/19/18 19:41 07/19/18 19:44 Temperature Temperature Source Pulse Rate Pulse Rate [Left Brachial] 92 H Pulse Rate [Right Apical] Pulse Rate from SpO2 Sensor Pulse Rhythm [Left Brachial] Pulse Strength [Left Brachial] Respiratory Rate 16 Respiratory Effort / Characteristics Non-Labored Spontaneous Respiratory Depth Normal Respiratory Pattern Tachypnea Blood Pressure Blood Pressure [Left Arm] Blood Pressure Mean Blood Pressure Mean [Left Arm] Blood Pressure Position [Left Arm] Pulse Oximetry 97 Oxygen Delivery Method High Flow Nasal Cannula High Flow Nasal Cannula Oxygen Flow Rate 30 30 Fraction of Inspired Oxygen 100 100 SaO2/FiO2 Ratio GENERAL: Awake, alert, well-appearing, in no acute distress HENT: Normocephalic, atraumatic. Oropharynx unremarkable. EYES: Normal conjunctiva. Sclera non-icteric. NECK: Supple. No nuchal rigidity. FROM. No JVD. No evidence of meningitis or encephalitis. RESPIRATORY: Distant breath sounds. CARDIAC: Regular rate, normal rhythm. Extremities warm and well perfused. Pulses equal. ABDOMEN: Soft, non-distended. No tenderness to palpation. No rebound or guar ding. No masses. RECTAL: Deferred. MUSCULOSKELETAL: Port is present in the left side of the chest. Chest examination reveals no tenderness. The back is symmetrical on inspection without obvious abnormality. There is no CVA tenderness to palpation. No joint edema. LOWER EXTREMITIES: Calves are equal size bilaterally and non-tender. No edema. No discoloration. NEURO: Normal sensorium. No sensory or motor deficits noted. SKIN: No rash or jaundice noted. Course 1713: The patient was evaluated in room B9. A complete history and physical examination were performed. 1735: I updated the patient and obtained consent for transfusion. 2015: Dr. Hidalgo [facility] Hospitalist was notified of the patient, and she will be reevaluated for hospitalization. Administered Medications Acetaminophen (Tylenol) 650 mg PO Q4H PRN PRN Reason: pain/fever Stop: 08/17/18 01:01 Last Admin: 07/18/18 23:07 Dose: 650 mg Documented by: [id number] Admin: 07/18/18 03:40 Dose: 650 mg Documented by: [id number] Albuterol (Duoneb) 3 ml NEB Q6RWA [facility] Stop: 08/18/18 14:59 Last Admin: 07/19/18 19:41 Dose: 3 ml Documented by: [id number] Admin: 07/19/18 15:54 Dose: 3 ml Documented by: [id number] Lidocaine HCl 60 ml/Diphenhydramine HCl 150 mg/ Al Hydrox/Mg Hydrox/Simethicone 60 ml/ Glycerin 60 ml/ BARCODE IDENTIFIER 1 ea 0 ml MT UD PRN PRN Reason: mouth sores Stop: 08/17/18 22:31 Last Admin: 07/19/18 15:11 Dose: 15 ml Documented by: [id number] Enoxaparin Sodium (Lovenox) 40 mg SQ Q24H [facility] Stop: 08/17/18 08:59 Last Admin: 07/19/18 07:37 Dose: 40 mg Documented by: [id number] Admin: 07/18/18 08:11 Dose: 40 mg Documented by: [id number] Fluoxetine HCl (Prozac) 40 mg PO QAM [facility] Stop: 08/17/18 08:59 Last Admin: 07/19/18 07:36 Dose: 40 mg Documented by: [id number] Admin: 07/18/18 08:10 Dose: 40 mg Documented by: [id number] Gabapentin (Neurontin) 200 mg PO TID [facility] Stop: 08/17/18 08:59 Last Admin: 07/19/18 12:47 Dose: 200 mg Documented by: [id number] Admin: 07/19/18 07:34 Dose: 200 mg Documented by: [id number] Admin: 07/18/18 21:34 Dose: 200 mg Documented by: [id number] Admin: 07/18/18 15:16 Dose: 200 mg Documented by: [id number] Admin: 07/18/18 08:09 Dose: 200 mg Documented by: [id number] Heparin Sodium (Porcine) (Heparin Sod 100 Unit/Ml Flush) 5 ml FLUSH PRN PRN PRN Reason: Flush Stop: 08/17/18 01:29 Last Admin: 07/18/18 12:29 Dose: 5 ml Documented by: [id number] Hydrochlorothiazide (Hctz) 12.5 mg PO QAM [facility] Stop: 08/17/18 08:59 Last Admin: 07/18/18 08:10 Dose: 12.5 mg Documented by: [id number] Azithromycin 500 mg/ Dextrose 255 mls @ 125 mls/hr IV Q24H [facility] Stop: 07/25/18 08:59 Last Infusion: 07/19/18 11:15 Dose: 125 mls/hr Documented by: [id number] Admin: 07/19/18 09:05 Dose: 125 mls/hr Documented by: [id number] Infusion: 07/18/18 10:20 Dose: 125 mls/hr Documented by: [id number] Admin: 07/18/18 08:17 Dose: 125 mls/hr Documented by: [id number] Cefepime HCl 2,000 mg/ Syringe 20 mls @ 5.5 mls/min IV Q8H [facility] Stop: 07/25/18 02:59 Last Admin: 07/19/18 17:46 Dose: 5.5 mls/min Documented by: [id number] Admin: 07/19/18 11:19 Dose: 5.5 mls/min Documented by: [id number] Admin: 07/19/18 03:32 Dose: 5.5 mls/min Documented by: [id number] Admin: 07/18/18 17:52 Dose: 5.5 mls/min Documented by: [id number] Admin: 07/18/18 12:29 Dose: 5.5 mls/min Documented by: [id number] Admin: 07/18/18 03:43 Dose: 5.5 mls/min Documented by: [id number] Vancomycin HCl 1,250 mg/ (Sodium Chloride) 275 mls @ 125 mls/hr IV Q12H [facility]; Protocol Stop: 07/25/18 15:59 Last Infusion: 07/19/18 17:43 Dose: 0 mls/hr Documented by: [id number] Admin: 07/19/18 15:30 Dose: 125 mls/hr Documented by: [id number] Infusion: 07/19/18 06:43 Dose: 0 mls/hr Documented by: [id number] Admin: 07/19/18 03:32 Dose: 125 mls/hr Documented by: [id number] Infusion: 07/18/18 17:44 Dose: 125 mls/hr Documented by: [id number] Admin: 07/18/18 15:19 Dose: 125 mls/hr Documented by: [id number] Methylprednisolone 60 mg/ (Syringe) 0.96 mls @ 1.5 mls/min IV Q6H [facility] Stop: 08/18/18 19:59 Last Admin: 07/19/18 19:43 Dose: 1.5 mls/min Documented by: [id number] Insulin Aspart (Novolog Flexpen) 0 units SC ACHS [facility] Stop: 08/17/18 01:59 Last Admin: 07/19/18 16:47 Dose: 13 units Documented by: [id number] Cosigned by: [id number] Admin: 07/19/18 12:47 Dose: 9 units Documented by: [id number] Cosigned by: [id number] Admin: 07/19/18 09:02 Dose: Not Given Documented by: [id number] Cosigned by: [id number] Admin: 07/18/18 21:34 Dose: 1 units Documented by: [id number] Cosigned by: [id number] Admin: 07/18/18 17:45 Dose: 8 units Documented by: [id number] Cosigned by: [id number] Admin: 07/18/18 12:32 Dose: 10 units Documented by: [id number] Cosigned by: [id number] Admin: 07/18/18 08:23 Dose: 2 units Documented by: [id number] Cosigned by: [id number] Admin: 07/18/18 02:33 Dose: 2 units Documented by: [id number] Cosigned by: [id number] Levothyroxine Sodium (Synthroid) 200 mcg PO DAILYBB [facility] Stop: 08/17/18 06:29 Last Admin: 07/19/18 05:52 Dose: 200 mcg Documented by: [id number] Admin: 07/18/18 06:56 Dose: 200 mcg Documented by: [id number] Levothyroxine Sodium (Synthroid) 25 mcg PO DAILYBB [facility] Stop: 08/17/18 06:29 Last Admin: 07/19/18 05:52 Dose: 25 mcg Documented by: [id number] Admin: 07/18/18 06:56 Dose: 25 mcg Documented by: [id number] Losartan Potassium (Cozaar) 100 mg PO QAM [facility] Stop: 08/17/18 08:59 Last Admin: 07/19/18 07:36 Dose: 100 mg Documented by: [id number] Admin: 07/18/18 08:11 Dose: 100 mg Documented by: [id number] Metoprolol Succinate (Toprol Xl) 25 mg PO DAILY [facility] Stop: 08/17/18 08:59 Last Admin: 07/19/18 07:36 Dose: 25 mg Documented by: [id number] Admin: 07/18/18 09:56 Dose: 25 mg Documented by: [id number] Ondansetron HCl (Zofran) 4 mg PO Q6H PRN PRN Reason: Nausea Stop: 08/18/18 09:25 Last Admin: 07/19/18 11:19 Dose: 4 mg Documented by: [id number] Discontinued Medications Albuterol (Ventolin 0.083% 2.5mg/3ml) 2.5 mg NEB Q6R PRN PRN Reason: Dyspnea Stop: 08/17/18 01:01 Last Admin: 07/19/18 07:04 Dose: 2.5 mg Documented by: [id number] Albuterol (Duoneb) 3 ml NEB Q2H PRN PRN Reason: Shortness Of Breath Or Wheezing Stop: 08/18/18 09:45 Last Admin: 07/19/18 11:55 Dose: 3 ml Documented by: [id number] Dexamethasone (Decadron) 4 mg PO DAILY [facility] Stop: 08/17/18 08:59 Last Admin: 07/18/18 08:13 Dose: Not Given Documented by: [id number] Diphenhydramine HCl (Benadryl) 25 mg IV NOW STA Stop: 07/17/18 17:46 Last Admin: 07/17/18 19:20 Dose: 25 mg Documented by: [id number] Furosemide (Lasix) 40 mg IV NOW STA Stop: 07/17/18 18:19 Last Admin: 07/17/18 19:04 Dose: 40 mg Documented by: [id number] Heparin Sodium (Beef Lung) (Heparin Sod 10 Unit/Ml Flush) Confirm Administered Dose 5 ml FLUSH .K-MED ONE Stop: 07/17/18 18:58 Last Admin: 07/17/18 19:05 Dose: Not Given Documented by: [id number] Heparin Sodium (Porcine) (Heparin Sod 100 Unit/Ml Flush) Confirm Administered Dose 5 ml .ROUTE .STK-MED ONE Stop: 07/17/18 18:59 Last Admin: 07/17/18 19:04 Dose: 5 ml Documented by: [id number] Heparin Sodium (Porcine) (Heparin Sod 100 Unit/Ml Flush) Confirm Administered Dose 5 ml .ROUTE .STK-MED ONE Stop: 07/18/18 00:27 Last Admin: 07/18/18 00:27 Dose: 5 ml Documented by: [id number] Sodium Chloride (Nss 1000ml) 1,000 mls @ 999 mls/hr IV .Q1H1M ONE Stop: 07/17/18 18:09 Last Infusion: 07/17/18 18:51 Dose: 0 mls/hr Documented by: [id number] Admin: 07/17/18 17:24 Dose: 999 mls/hr Documented by: [id number] Cefepime HCl (Maxipime) 2,000 mg in 12.5 mls @ 3.125 mls/min IV NOW STA Stop: 07/17/18 17:21 Last Admin: 07/17/18 17:46 Dose: 3.125 mls/min Documented by: [id number] Daptomycin 600 mg/ Syringe 12 mls @ 6 mls/min IV NOW ONE Stop: 07/17/18 17:19 Last Admin: 07/17/18 19:04 Dose: 6 mls/min Documented by: [id number] Levofloxacin/Dextrose (Levaquin/D5w) 750 mg in 150 mls @ 100 mls/hr IV NOW STA Stop: 07/17/18 21:59 Last Infusion: 07/18/18 00:23 Dose: 0 mls/hr Documented by: [id number] Admin: 07/17/18 22:49 Dose: 100 mls/hr Documented by: [id number] Vancomycin HCl 2,250 mg/ (Sodium Chloride) 545 mls @ 200 mls/hr IV NOW ONE Stop: 07/18/18 06:43 Last Infusion: 07/18/18 09:54 Dose: 200 mls/hr Documented by: [id number] Admin: 07/18/18 06:41 Dose: 200 mls/hr Documented by: [id number] Sodium Chloride (Nss 1000ml) 1,000 mls @ 50 mls/hr IV .Q20H [facility] Stop: 08/17/18 15:44 Last Infusion: 07/19/18 14:50 Dose: 0 mls/hr Documented by: [id number] Infusion: 07/19/18 13:20 Dose: 80 mls/hr Documented by: [id number] Admin: 07/19/18 05:52 Dose: 80 mls/hr Documented by: [id number] Infusion: 07/19/18 05:28 Dose: 80 mls/hr Documented by: [id number] Admin: 07/18/18 16:58 Dose: 80 mls/hr Documented by: [id number] Methylprednisolone 60 mg/ (Syringe) 0.96 mls @ 1.5 mls/min IV ONE ONE Stop: 07/19/18 14:46 Last Admin: 07/19/18 15:19 Dose: 1.5 mls/min Documented by: [id number] Furosemide 40 mg/ Syringe 4 mls @ 4 mls/min IV 1545 ONE Stop: 07/19/18 15:46 Last Admin: 07/19/18 15:53 Dose: 4 mls/min Documented by: [id number] Insulin Glargine (Lantus Solostar Pen) 20 units SC BID [facility] Stop: 08/17/18 08:59 Last Admin: 07/19/18 09:03 Dose: 20 units Documented by: [id number] Cosigned by: [id number] Admin: 07/18/18 21:35 Dose: 20 units Documented by: [id number] Cosigned by: [id number] Admin: 07/18/18 08:18 Dose: 20 units Documented by: [id number] Cosigned by: [id number] Insulin Glargine (Lantus Solostar Pen) 20 units SC ONE ONE Stop: 07/19/18 15:01 Last Admin: 07/19/18 15:17 Dose: 20 units Documented by: [id number] Cosigned by: [id number] Ioversol (Optiray 320 125ml) 120 ml IV ONCE PRN PRN Reason: Interaction Checking Stop: 07/21/18 20:02 Last Admin: 07/17/18 20:04 Dose: 120 ml Documented by: [id number] Levalbuterol HCl (Xopenex 1.25mg/3ml Neb) 1.25 mg NEB NOW STA Stop: 07/17/18 17:19 Last Admin: 07/17/18 17:33 Dose: 1.25 mg Documented by: [id number] Ondansetron HCl (Zofran Odt) 4 mg PO TID PRN PRN Reason: Nausea Stop: 08/16/18 22:56 Last Admin: 07/18/18 07:00 Dose: 4 mg Documented by: [id number] Potassium Chloride (Klor-Con M20) 40 meq PO NOW STA Stop: 07/18/18 08:58 Last Admin: 07/18/18 11:24 Dose: 40 meq Documented by: [id number] Potassium Chloride (Klor-Con M20) 40 meq PO NOW STA Stop: 07/19/18 08:20 Last Admin: 07/19/18 09:01 Dose: 40 meq Documented by: [id number] Medical Decision Making Differential Diagnosis Differential diagnosis includes: viral syndrome, otitis, pharyngitis, pneumonia, influenza, meningitis, urinary tract infection, sepsis, bacteremia, as well as others were entertained. Medical Records Attestation: I reviewed the patient's medical records. Home Medications Current Medication List: was personally reviewed by me Laboratory Data Attestation: I reviewed the patient's lab results. Result diagrams: 07/19/18 05:29 07/19/18 05:29 Lab Results 07/17/18 07/17/18 07/17/18 Range/Units 17:09 17:09 17:09 WBC 2.41 L (4.8-10.8) K/uL RBC 2.77 L (4.2-5.4) M/uL Hgb 8.4 L (12.0-16.0) g/dL Hct 25.2 L (37-47) % MCV 91.0 (80-100) fL MCH 30.3 (25-34) pg MCHC 33.3 (32-36) g/dL RDW Std Deviation 56.2 H (36.4-46.3) fL RDW Coeff of Rosa 17.3 H (11.5-14.5) % Plt Count 177 (130-400) K/uL MPV 9.1 (7.4-10.4) fL Immature Gran % (Auto) 2.9 % Neut % (Auto) 59.3 % Lymph % (Auto) 21.2 % [place] % (Auto) 14.1 % Eos % (Auto) 1.7 % Baso % (Auto) 0.8 % Immature Gran # (Auto) 0.07 H (0.00-0.02) K/uL Neut # (Auto) 1.43 (1.4-6.5) K/uL Lymph # (Auto) 0.51 L (1.2-3.4) K/uL [place] # (Auto) 0.34 (0.11-0.59) K/uL Eos # (Auto) 0.04 (0-0.5) K/uL Baso # (Auto) 0.02 (0-0.2) K/uL Absolute Nucleated RBC 0.03 H (0-0) K/uL Nucleated RBC % (auto) 1.4 % PT 11.7 (9.0-12.0) Seconds INR 1.2 H (0.9-1.1) APTT 28.2 (21.0-31.0) Seconds PTT Ratio 1.0 ABG pH (7.35-7.45) ABG pCO2 (35-46) mmHg ABG pO2 (80-95) mm/Hg ABG HCO3 (19-24) mmol/L ABG O2 Saturation (90-95) % ABG Base Excess (-9-1.8) mEq/L You Test (Pos) Barometric Pressure mm/Hg Oxygen Given Sodium 132 L (136-145) mmol/L Potassium 3.8 (3.5-5.1) mmol/L Chloride 99 (98-107) mmol/L Carbon Dioxide 22 (21-32) mmol/L Anion Gap 11.0 (3-11) BUN 12 (7-18) mg/dl Creatinine 0.74 (0.6-1.2) mg/dl Est Cr Clr Drug Dosing 91.3 ml/min Est GFR ( Amer) 101.3 Est GFR (Non-Af Amer) 87.4 BUN/Creatinine Ratio 16.3 (10-20) Glucose 229 H (70-99) mg/dl POC Glucose (70-99) Estimat Average Glucose mg/dl Hemoglobin A1c (4.5-5.6) % Lactate (0.4-2.0) mmol/L Calcium 8.4 L (8.5-10.1) mg/dl Magnesium (1.8-2.4) mg/dl Total Bilirubin 1.4 H (0.2-1) mg/dl Direct Bilirubin (0-0.2) mg/dl AST 32 (15-37) U/L ALT 29 (12-78) U/L Alkaline Phosphatase 97 (45-117) U/L Total Creatine Kinase 77 (26-192) U/L CK-MB (CK-2) < 1.0 (0.5-3.6) ng/ml CK/CKMB % Calc TNP Troponin I < 0.015 (0-0.045) ng/ml NT-Pro-B Natriuret Pep (0-900) pg/ml Total Protein 5.9 L (6.4-8.2) gm/dl Albumin 2.8 L (3.4-5.0) gm/dl Globulin 3.1 (2.5-4.0) gm/dl Albumin/Globulin Ratio 0.9 (0.9-2) Urine Color Urine Appearance (Clear) Urine pH (4.5-7.5) Ur Specific [place] (1.000-1.030) Urine Protein (Negative) Urine Glucose (UA) (Negative) Urine Ketones (Negative) Urine Blood (Negative) Urine Nitrite (Negative) Urine Bilirubin (Negative) Urine Urobilinogen (Negative) Ur Leukocyte Esterase (Negative) Nasal Screen MRSA (PCR) (Negative) Vancomycin Trough (See Comment) mcg/ml Influenza Type A (PCR) (Neg) Influenza Type B (PCR) (Neg) Blood Type Blood Type Recheck Antibody Screen Crossmatch 07/17/18 07/17/18 07/17/18 Range/Units 17:09 18:14 18:14 WBC (4.8-10.8) K/uL RBC (4.2-5.4) M/uL Hgb (12.0-16.0) g/dL Hct (37-47) % MCV (80-100) fL MCH (25-34) pg MCHC (32-36) g/dL RDW Std Deviation (36.4-46.3) fL RDW Coeff of Rosa (11.5-14.5) % Plt Count (130-400) K/uL MPV (7.4-10.4) fL Immature Gran % (Auto) % Neut % (Auto) % Lymph % (Auto) % [place] % (Auto) % Eos % (Auto) % Baso % (Auto) % Immature Gran # (Auto) (0.00-0.02) K/uL Neut # (Auto) (1.4-6.5) K/uL Lymph # (Auto) (1.2-3.4) K/uL [place] # (Auto) (0.11-0.59) K/uL Eos # (Auto) (0-0.5) K/uL Baso # (Auto) (0-0.2) K/uL Absolute Nucleated RBC (0-0) K/uL Nucleated RBC % (auto) % PT (9.0-12.0) Seconds INR (0.9-1.1) APTT (21.0-31.0) Seconds PTT Ratio ABG pH (7.35-7.45) ABG pCO2 (35-46) mmHg ABG pO2 (80-95) mm/Hg ABG HCO3 (19-24) mmol/L ABG O2 Saturation (90-95) % ABG Base Excess (-9-1.8) mEq/L You Test (Pos) Barometric Pressure mm/Hg Oxygen Given Sodium (136-145) mmol/L Potassium (3.5-5.1) mmol/L Chloride (98-107) mmol/L Carbon Dioxide (21-32) mmol/L Anion Gap (3-11) BUN (7-18) mg/dl Creatinine (0.6-1.2) mg/dl Est Cr Clr Drug Dosing ml/min Est GFR ( Amer) Est GFR (Non-Af Amer) BUN/Creatinine Ratio (10-20) Glucose (70-99) mg/dl POC Glucose (70-99) Estimat Average Glucose mg/dl Hemoglobin A1c (4.5-5.6) % Lactate 2.2 H* (0.4-2.0) mmol/L Calcium (8.5-10.1) mg/dl Magnesium (1.8-2.4) mg/dl Total Bilirubin (0.2-1) mg/dl Direct Bilirubin (0-0.2) mg/dl AST (15-37) U/L ALT (12-78) U/L Alkaline Phosphatase (45-117) U/L Total Creatine Kinase (26-192) U/L CK-MB (CK-2) (0.5-3.6) ng/ml CK/CKMB % Calc Troponin I (0-0.045) ng/ml NT-Pro-B Natriuret Pep 43 (0-900) pg/ml Total Protein (6.4-8.2) gm/dl Albumin (3.4-5.0) gm/dl Globulin (2.5-4.0) gm/dl Albumin/Globulin Ratio (0.9-2) Urine Color Urine Appearance (Clear) Urine pH (4.5-7.5) Ur Specific [place] (1.000-1.030) Urine Protein (Negative) Urine Glucose (UA) (Negative) Urine Ketones (Negative) Urine Blood (Negative) Urine Nitrite (Negative) Urine Bilirubin (Negative) Urine Urobilinogen (Negative) Ur Leukocyte Esterase (Negative) Nasal Screen MRSA (PCR) (Negative) Vancomycin Trough (See Comment) mcg/ml Influenza Type A (PCR) (Neg) Influenza Type B (PCR) (Neg) Blood Type A Positive Blood Type Recheck Antibody Screen NEGATIVE Crossmatch See Detail 07/17/18 07/17/18 07/17/18 Range/Units 18:15 19:01 19:18 WBC (4.8-10.8) K/uL RBC (4.2-5.4) M/uL Hgb (12.0-16.0) g/dL Hct (37-47) % MCV (80-100) fL MCH (25-34) pg MCHC (32-36) g/dL RDW Std Deviation (36.4-46.3) fL RDW Coeff of Rosa (11.5-14.5) % Plt Count (130-400) K/uL MPV (7.4-10.4) fL Immature Gran % (Auto) % Neut % (Auto) % Lymph % (Auto) % [place] % (Auto) % Eos % (Auto) % Baso % (Auto) % Immature Gran # (Auto) (0.00-0.02) K/uL Neut # (Auto) (1.4-6.5) K/uL Lymph # (Auto) (1.2-3.4) K/uL [place] # (Auto) (0.11-0.59) K/uL Eos # (Auto) (0-0.5) K/uL Baso # (Auto) (0-0.2) K/uL Absolute Nucleated RBC (0-0) K/uL Nucleated RBC % (auto) % PT (9.0-12.0) Seconds INR (0.9-1.1) APTT (21.0-31.0) Seconds PTT Ratio ABG pH (7.35-7.45) ABG pCO2 (35-46) mmHg ABG pO2 (80-95) mm/Hg ABG HCO3 (19-24) mmol/L ABG O2 Saturation (90-95) % ABG Base Excess (-9-1.8) mEq/L You Test (Pos) Barometric Pressure mm/Hg Oxygen Given Sodium (136-145) mmol/L Potassium (3.5-5.1) mmol/L Chloride (98-107) mmol/L Carbon Dioxide (21-32) mmol/L Anion Gap (3-11) BUN (7-18) mg/dl Creatinine (0.6-1.2) mg/dl Est Cr Clr Drug Dosing ml/min Est GFR ( Amer) Est GFR (Non-Af Amer) BUN/Creatinine Ratio (10-20) Glucose (70-99) mg/dl POC Glucose (70-99) Estimat Average Glucose mg/dl Hemoglobin A1c (4.5-5.6) % Lactate (0.4-2.0) mmol/L Calcium (8.5-10.1) mg/dl Magnesium (1.8-2.4) mg/dl Total Bilirubin (0.2-1) mg/dl Direct Bilirubin (0-0.2) mg/dl AST (15-37) U/L ALT (12-78) U/L Alkaline Phosphatase (45-117) U/L Total Creatine Kinase (26-192) U/L CK-MB (CK-2) (0.5-3.6) ng/ml CK/CKMB % Calc Troponin I (0-0.045) ng/ml NT-Pro-B Natriuret Pep (0-900) pg/ml Total Protein (6.4-8.2) gm/dl Albumin (3.4-5.0) gm/dl Globulin (2.5-4.0) gm/dl Albumin/Globulin Ratio (0.9-2) Urine Color Yellow Urine Appearance Clear (Clear) Urine pH 5.5 (4.5-7.5) Ur Specific [place] 1.018 (1.000-1.030) Urine Protein Negative (Negative) Urine Glucose (UA) 1+ H (Negative) Urine Ketones 1+ H (Negative) Urine Blood Negative (Negative) Urine Nitrite Negative (Negative) Urine Bilirubin Negative (Negative) Urine Urobilinogen Negative (Negative) Ur Leukocyte Esterase Negative (Negative) Nasal Screen MRSA (PCR) (Negative) Vancomycin Trough (See Comment) mcg/ml Influenza Type A (PCR) Neg for Influ A (Neg) Influenza Type B (PCR) Neg for Influ B (Neg) Blood Type Blood Type Recheck A Positive Antibody Screen Crossmatch 07/18/18 07/18/18 07/18/18 Range/Units 01:48 07:25 08:13 WBC 2.75 L (4.8-10.8) K/uL RBC 3.43 L (4.2-5.4) M/uL Hgb 10.0 L (12.0-16.0) g/dL Hct 30.0 L (37-47) % MCV 87.5 (80-100) fL MCH 29.2 (25-34) pg MCHC 33.3 (32-36) g/dL RDW Std Deviation 55.8 H (36.4-46.3) fL RDW Coeff of Rosa 18.2 H (11.5-14.5) % Plt Count 151 (130-400) K/uL MPV 9.6 (7.4-10.4) fL Immature Gran % (Auto) 1.8 % Neut % (Auto) 60.3 % Lymph % (Auto) 28.4 % [place] % (Auto) 7.6 % Eos % (Auto) 1.5 % Baso % (Auto) 0.4 % Immature Gran # (Auto) 0.05 H (0.00-0.02) K/uL Neut # (Auto) 1.66 (1.4-6.5) K/uL Lymph # (Auto) 0.78 L (1.2-3.4) K/uL [place] # (Auto) 0.21 (0.11-0.59) K/uL Eos # (Auto) 0.04 (0-0.5) K/uL Baso # (Auto) 0.01 (0-0.2) K/uL Absolute Nucleated RBC 0.02 H (0-0) K/uL Nucleated RBC % (auto) 0.7 % PT (9.0-12.0) Seconds INR (0.9-1.1) APTT (21.0-31.0) Seconds PTT Ratio ABG pH (7.35-7.45) ABG pCO2 (35-46) mmHg ABG pO2 (80-95) mm/Hg ABG HCO3 (19-24) mmol/L ABG O2 Saturation (90-95) % ABG Base Excess (-9-1.8) mEq/L You Test (Pos) Barometric Pressure mm/Hg Oxygen Given Sodium (136-145) mmol/L Potassium (3.5-5.1) mmol/L Chloride (98-107) mmol/L Carbon Dioxide (21-32) mmol/L Anion Gap (3-11) BUN (7-18) mg/dl Creatinine (0.6-1.2) mg/dl Est Cr Clr Drug Dosing ml/min Est GFR ( Amer) Est GFR (Non-Af Amer) BUN/Creatinine Ratio (10-20) Glucose (70-99) mg/dl POC Glucose 194 H 183 H (70-99) Estimat Average Glucose mg/dl Hemoglobin A1c (4.5-5.6) % Lactate (0.4-2.0) mmol/L Calcium (8.5-10.1) mg/dl Magnesium (1.8-2.4) mg/dl Total Bilirubin (0.2-1) mg/dl Direct Bilirubin (0-0.2) mg/dl AST (15-37) U/L ALT (12-78) U/L Alkaline Phosphatase (45-117) U/L Total Creatine Kinase (26-192) U/L CK-MB (CK-2) (0.5-3.6) ng/ml CK/CKMB % Calc Troponin I (0-0.045) ng/ml NT-Pro-B Natriuret Pep (0-900) pg/ml Total Protein (6.4-8.2) gm/dl Albumin (3.4-5.0) gm/dl Globulin (2.5-4.0) gm/dl Albumin/Globulin Ratio (0.9-2) Urine Color Urine Appearance (Clear) Urine pH (4.5-7.5) Ur Specific [place] (1.000-1.030) Urine Protein (Negative) Urine Glucose (UA) (Negative) Urine Ketones (Negative) Urine Blood (Negative) Urine Nitrite (Negative) Urine Bilirubin (Negative) Urine Urobilinogen (Negative) Ur Leukocyte Esterase (Negative) Nasal Screen MRSA (PCR) (Negative) Vancomycin Trough (See Comment) mcg/ml Influenza Type A (PCR) (Neg) Influenza Type B (PCR) (Neg) Blood Type Blood Type Recheck Antibody Screen Crossmatch 07/18/18 07/18/18 07/18/18 Range/Units 08:13 08:13 08:13 WBC (4.8-10.8) K/uL RBC (4.2-5.4) M/uL Hgb (12.0-16.0) g/dL Hct (37-47) % MCV (80-100) fL MCH (25-34) pg MCHC (32-36) g/dL RDW Std Deviation (36.4-46.3) fL RDW Coeff of Rosa (11.5-14.5) % Plt Count (130-400) K/uL MPV (7.4-10.4) fL Immature Gran % (Auto) % Neut % (Auto) % Lymph % (Auto) % [place] % (Auto) % Eos % (Auto) % Baso % (Auto) % Immature Gran # (Auto) (0.00-0.02) K/uL Neut # (Auto) (1.4-6.5) K/uL Lymph # (Auto) (1.2-3.4) K/uL [place] # (Auto) (0.11-0.59) K/uL Eos # (Auto) (0-0.5) K/uL Baso # (Auto) (0-0.2) K/uL Absolute Nucleated RBC (0-0) K/uL Nucleated RBC % (auto) % PT (9.0-12.0) Seconds INR (0.9-1.1) APTT (21.0-31.0) Seconds PTT Ratio ABG pH (7.35-7.45) ABG pCO2 (35-46) mmHg ABG pO2 (80-95) mm/Hg ABG HCO3 (19-24) mmol/L ABG O2 Saturation (90-95) % ABG Base Excess (-9-1.8) mEq/L You Test (Pos) Barometric Pressure mm/Hg Oxygen Given Sodium 135 L (136-145) mmol/L Potassium 3.3 L (3.5-5.1) mmol/L Chloride 102 (98-107) mmol/L Carbon Dioxide 24 (21-32) mmol/L Anion Gap 9.0 (3-11) BUN 9 (7-18) mg/dl Creatinine 0.68 (0.6-1.2) mg/dl Est Cr Clr Drug Dosing 99.1 ml/min Est GFR ( Amer) 109.4 Est GFR (Non-Af Amer) 94.4 BUN/Creatinine Ratio 13.2 (10-20) Glucose 174 H (70-99) mg/dl POC Glucose (70-99) Estimat Average Glucose 160 mg/dl Hemoglobin A1c 7.2 H (4.5-5.6) % Lactate 1.2 (0.4-2.0) mmol/L Calcium 7.9 L (8.5-10.1) mg/dl Magnesium (1.8-2.4) mg/dl Total Bilirubin (0.2-1) mg/dl Direct Bilirubin (0-0.2) mg/dl AST (15-37) U/L ALT (12-78) U/L Alkaline Phosphatase (45-117) U/L Total Creatine Kinase (26-192) U/L CK-MB (CK-2) (0.5-3.6) ng/ml CK/CKMB % Calc Troponin I (0-0.045) ng/ml NT-Pro-B Natriuret Pep (0-900) pg/ml Total Protein (6.4-8.2) gm/dl Albumin (3.4-5.0) gm/dl Globulin (2.5-4.0) gm/dl Albumin/Globulin Ratio (0.9-2) Urine Color Urine Appearance (Clear) Urine pH (4.5-7.5) Ur Specific [place] (1.000-1.030) Urine Protein (Negative) Urine Glucose (UA) (Negative) Urine Ketones (Negative) Urine Blood (Negative) Urine Nitrite (Negative) Urine Bilirubin (Negative) Urine Urobilinogen (Negative) Ur Leukocyte Esterase (Negative) Nasal Screen MRSA (PCR) (Negative) Vancomycin Trough (See Comment) mcg/ml Influenza Type A (PCR) (Neg) Influenza Type B (PCR) (Neg) Blood Type Blood Type Recheck Antibody Screen Crossmatch 07/18/18 07/18/18 07/18/18 Range/Units 08:13 11:42 12:35 WBC (4.8-10.8) K/uL RBC (4.2-5.4) M/uL Hgb (12.0-16.0) g/dL Hct (37-47) % MCV (80-100) fL MCH (25-34) pg MCHC (32-36) g/dL RDW Std Deviation (36.4-46.3) fL RDW Coeff of Rosa (11.5-14.5) % Plt Count (130-400) K/uL MPV (7.4-10.4) fL Immature Gran % (Auto) % Neut % (Auto) % Lymph % (Auto) % [place] % (Auto) % Eos % (Auto) % Baso % (Auto) % Immature Gran # (Auto) (0.00-0.02) K/uL Neut # (Auto) (1.4-6.5) K/uL Lymph # (Auto) (1.2-3.4) K/uL [place] # (Auto) (0.11-0.59) K/uL Eos # (Auto) (0-0.5) K/uL Baso # (Auto) (0-0.2) K/uL Absolute Nucleated RBC (0-0) K/uL Nucleated RBC % (auto) % PT (9.0-12.0) Seconds INR (0.9-1.1) APTT (21.0-31.0) Seconds PTT Ratio ABG pH (7.35-7.45) ABG pCO2 (35-46) mmHg ABG pO2 (80-95) mm/Hg ABG HCO3 (19-24) mmol/L ABG O2 Saturation (90-95) % ABG Base Excess (-9-1.8) mEq/L You Test (Pos) Barometric Pressure mm/Hg Oxygen Given Sodium (136-145) mmol/L Potassium (3.5-5.1) mmol/L Chloride (98-107) mmol/L Carbon Dioxide (21-32) mmol/L Anion Gap (3-11) BUN (7-18) mg/dl Creatinine (0.6-1.2) mg/dl Est Cr Clr Drug Dosing ml/min Est GFR ( Amer) Est GFR (Non-Af Amer) BUN/Creatinine Ratio (10-20) Glucose (70-99) mg/dl POC Glucose 266 H (70-99) Estimat Average Glucose mg/dl Hemoglobin A1c (4.5-5.6) % Lactate (0.4-2.0) mmol/L Calcium (8.5-10.1) mg/dl Magnesium 1.8 (1.8-2.4) mg/dl Total Bilirubin 1.6 H (0.2-1) mg/dl Direct Bilirubin 0.5 H (0-0.2) mg/dl AST 29 (15-37) U/L ALT 26 (12-78) U/L Alkaline Phosphatase 84 (45-117) U/L Total Creatine Kinase (26-192) U/L CK-MB (CK-2) (0.5-3.6) ng/ml CK/CKMB % Calc Troponin I (0-0.045) ng/ml NT-Pro-B Natriuret Pep (0-900) pg/ml Total Protein 5.7 L (6.4-8.2) gm/dl Albumin 2.6 L (3.4-5.0) gm/dl Globulin (2.5-4.0) gm/dl Albumin/Globulin Ratio (0.9-2) Urine Color Urine Appearance (Clear) Urine pH (4.5-7.5) Ur Specific [place] (1.000-1.030) Urine Protein (Negative) Urine Glucose (UA) (Negative) Urine Ketones (Negative) Urine Blood (Negative) Urine Nitrite (Negative) Urine Bilirubin (Negative) Urine Urobilinogen (Negative) Ur Leukocyte Esterase (Negative) Nasal Screen MRSA (PCR) Negative (Negative) Vancomycin Trough (See Comment) mcg/ml Influenza Type A (PCR) (Neg) Influenza Type B (PCR) (Neg) Blood Type Blood Type Recheck Antibody Screen Crossmatch 07/18/18 07/18/18 07/19/18 Range/Units 16:26 21:28 05:29 WBC 3.80 L (4.8-10.8) K/uL RBC 3.32 L (4.2-5.4) M/uL Hgb 9.8 L (12.0-16.0) g/dL Hct 29.8 L (37-47) % MCV 89.8 (80-100) fL MCH 29.5 (25-34) pg MCHC 32.9 (32-36) g/dL RDW Std Deviation 59.1 H (36.4-46.3) fL RDW Coeff of Rosa 18.7 H (11.5-14.5) % Plt Count 170 (130-400) K/uL MPV 9.9 (7.4-10.4) fL Immature Gran % (Auto) % Neut % (Auto) % Lymph % (Auto) % [place] % (Auto) % Eos % (Auto) % Baso % (Auto) % Immature Gran # (Auto) (0.00-0.02) K/uL Neut # (Auto) (1.4-6.5) K/uL Lymph # (Auto) (1.2-3.4) K/uL [place] # (Auto) (0.11-0.59) K/uL Eos # (Auto) (0-0.5) K/uL Baso # (Auto) (0-0.2) K/uL Absolute Nucleated RBC (0-0) K/uL Nucleated RBC % (auto) % PT (9.0-12.0) Seconds INR (0.9-1.1) APTT (21.0-31.0) Seconds PTT Ratio ABG pH (7.35-7.45) ABG pCO2 (35-46) mmHg ABG pO2 (80-95) mm/Hg ABG HCO3 (19-24) mmol/L ABG O2 Saturation (90-95) % ABG Base Excess (-9-1.8) mEq/L You Test (Pos) Barometric Pressure mm/Hg Oxygen Given Sodium (136-145) mmol/L Potassium (3.5-5.1) mmol/L Chloride (98-107) mmol/L Carbon Dioxide (21-32) mmol/L Anion Gap (3-11) BUN (7-18) mg/dl Creatinine (0.6-1.2) mg/dl Est Cr Clr Drug Dosing ml/min Est GFR ( Amer) Est GFR (Non-Af Amer) BUN/Creatinine Ratio (10-20) Glucose (70-99) mg/dl POC Glucose 219 H 168 H (70-99) Estimat Average Glucose mg/dl Hemoglobin A1c (4.5-5.6) % Lactate (0.4-2.0) mmol/L Calcium (8.5-10.1) mg/dl Magnesium (1.8-2.4) mg/dl Total Bilirubin (0.2-1) mg/dl Direct Bilirubin (0-0.2) mg/dl AST (15-37) U/L ALT (12-78) U/L Alkaline Phosphatase (45-117) U/L Total Creatine Kinase (26-192) U/L CK-MB (CK-2) (0.5-3.6) ng/ml CK/CKMB % Calc Troponin I (0-0.045) ng/ml NT-Pro-B Natriuret Pep (0-900) pg/ml Total Protein (6.4-8.2) gm/dl Albumin (3.4-5.0) gm/dl Globulin (2.5-4.0) gm/dl Albumin/Globulin Ratio (0.9-2) Urine Color Urine Appearance (Clear) Urine pH (4.5-7.5) Ur Specific [place] (1.000-1.030) Urine Protein (Negative) Urine Glucose (UA) (Negative) Urine Ketones (Negative) Urine Blood (Negative) Urine Nitrite (Negative) Urine Bilirubin (Negative) Urine Urobilinogen (Negative) Ur Leukocyte Esterase (Negative) Nasal Screen MRSA (PCR) (Negative) Vancomycin Trough (See Comment) mcg/ml Influenza Type A (PCR) (Neg) Influenza Type B (PCR) (Neg) Blood Type Blood Type Recheck Antibody Screen Crossmatch 07/19/18 07/19/18 07/19/18 Range/Units 05:29 07:56 11:29 WBC (4.8-10.8) K/uL RBC (4.2-5.4) M/uL Hgb (12.0-16.0) g/dL Hct (37-47) % MCV (80-100) fL MCH (25-34) pg MCHC (32-36) g/dL RDW Std Deviation (36.4-46.3) fL RDW Coeff of Rosa (11.5-14.5) % Plt Count (130-400) K/uL MPV (7.4-10.4) fL Immature Gran % (Auto) % Neut % (Auto) % Lymph % (Auto) % [place] % (Auto) % Eos % (Auto) % Baso % (Auto) % Immature Gran # (Auto) (0.00-0.02) K/uL Neut # (Auto) (1.4-6.5) K/uL Lymph # (Auto) (1.2-3.4) K/uL [place] # (Auto) (0.11-0.59) K/uL Eos # (Auto) (0-0.5) K/uL Baso # (Auto) (0-0.2) K/uL Absolute Nucleated RBC (0-0) K/uL Nucleated RBC % (auto) % PT (9.0-12.0) Seconds INR (0.9-1.1) APTT (21.0-31.0) Seconds PTT Ratio ABG pH (7.35-7.45) ABG pCO2 (35-46) mmHg ABG pO2 (80-95) mm/Hg ABG HCO3 (19-24) mmol/L ABG O2 Saturation (90-95) % ABG Base Excess (-9-1.8) mEq/L You Test (Pos) Barometric Pressure mm/Hg Oxygen Given Sodium 137 (136-145) mmol/L Potassium 3.2 L (3.5-5.1) mmol/L Chloride 106 (98-107) mmol/L Carbon Dioxide 25 (21-32) mmol/L Anion Gap 6.0 (3-11) BUN 8 (7-18) mg/dl Creatinine 0.64 (0.6-1.2) mg/dl Est Cr Clr Drug Dosing 105.3 ml/min Est GFR ( Amer) 111.6 Est GFR (Non-Af Amer) 96.3 BUN/Creatinine Ratio 12.2 (10-20) Glucose 135 H (70-99) mg/dl POC Glucose 152 H 247 H (70-99) Estimat Average Glucose mg/dl Hemoglobin A1c (4.5-5.6) % Lactate (0.4-2.0) mmol/L Calcium 7.8 L (8.5-10.1) mg/dl Magnesium 1.9 (1.8-2.4) mg/dl Total Bilirubin 1.3 H (0.2-1) mg/dl Direct Bilirubin (0-0.2) mg/dl AST 31 (15-37) U/L ALT 20 (12-78) U/L Alkaline Phosphatase 76 (45-117) U/L Total Creatine Kinase (26-192) U/L CK-MB (CK-2) (0.5-3.6) ng/ml CK/CKMB % Calc Troponin I (0-0.045) ng/ml NT-Pro-B Natriuret Pep (0-900) pg/ml Total Protein 5.5 L (6.4-8.2) gm/dl Albumin 2.4 L (3.4-5.0) gm/dl Globulin 3.1 (2.5-4.0) gm/dl Albumin/Globulin Ratio 0.8 L (0.9-2) Urine Color Urine Appearance (Clear) Urine pH (4.5-7.5) Ur Specific [place] (1.000-1.030) Urine Protein (Negative) Urine Glucose (UA) (Negative) Urine Ketones (Negative) Urine Blood (Negative) Urine Nitrite (Negative) Urine Bilirubin (Negative) Urine Urobilinogen (Negative) Ur Leukocyte Esterase (Negative) Nasal Screen MRSA (PCR) (Negative) Vancomycin Trough (See Comment) mcg/ml Influenza Type A (PCR) (Neg) Influenza Type B (PCR) (Neg) Blood Type Blood Type Recheck Antibody Screen Crossmatch 07/19/18 07/19/18 07/19/18 Range/Units 15:25 16:15 16:25 WBC (4.8-10.8) K/uL RBC (4.2-5.4) M/uL Hgb (12.0-16.0) g/dL Hct (37-47) % MCV (80-100) fL MCH (25-34) pg MCHC (32-36) g/dL RDW Std Deviation (36.4-46.3) fL RDW Coeff of Rosa (11.5-14.5) % Plt Count (130-400) K/uL MPV (7.4-10.4) fL Immature Gran % (Auto) % Neut % (Auto) % Lymph % (Auto) % [place] % (Auto) % Eos % (Auto) % Baso % (Auto) % Immature Gran # (Auto) (0.00-0.02) K/uL Neut # (Auto) (1.4-6.5) K/uL Lymph # (Auto) (1.2-3.4) K/uL [place] # (Auto) (0.11-0.59) K/uL Eos # (Auto) (0-0.5) K/uL Baso # (Auto) (0-0.2) K/uL Absolute Nucleated RBC (0-0) K/uL Nucleated RBC % (auto) % PT (9.0-12.0) Seconds INR (0.9-1.1) APTT (21.0-31.0) Seconds PTT Ratio ABG pH 7.48 H (7.35-7.45) ABG pCO2 29 L (35-46) mmHg ABG pO2 48 L (80-95) mm/Hg ABG HCO3 21 (19-24) mmol/L ABG O2 Saturation 85.0 L (90-95) % ABG Base Excess -1.8 (-9-1.8) mEq/L You Test Pos (Pos) Barometric Pressure 734.3 mm/Hg Oxygen Given 100 % Sodium (136-145) mmol/L Potassium (3.5-5.1) mmol/L Chloride (98-107) mmol/L Carbon Dioxide (21-32) mmol/L Anion Gap (3-11) BUN (7-18) mg/dl Creatinine (0.6-1.2) mg/dl Est Cr Clr Drug Dosing ml/min Est GFR ( Amer) Est GFR (Non-Af Amer) BUN/Creatinine Ratio (10-20) Glucose (70-99) mg/dl POC Glucose 223 H (70-99) Estimat Average Glucose mg/dl Hemoglobin A1c (4.5-5.6) % Lactate (0.4-2.0) mmol/L Calcium (8.5-10.1) mg/dl Magnesium (1.8-2.4) mg/dl Total Bilirubin (0.2-1) mg/dl Direct Bilirubin (0-0.2) mg/dl AST (15-37) U/L ALT (12-78) U/L Alkaline Phosphatase (45-117) U/L Total Creatine Kinase (26-192) U/L CK-MB (CK-2) (0.5-3.6) ng/ml CK/CKMB % Calc Troponin I (0-0.045) ng/ml NT-Pro-B Natriuret Pep (0-900) pg/ml Total Protein (6.4-8.2) gm/dl Albumin (3.4-5.0) gm/dl Globulin (2.5-4.0) gm/dl Albumin/Globulin Ratio (0.9-2) Urine Color Urine Appearance (Clear) Urine pH (4.5-7.5) Ur Specific [place] (1.000-1.030) Urine Protein (Negative) Urine Glucose (UA) (Negative) Urine Ketones (Negative) Urine Blood (Negative) Urine Nitrite (Negative) Urine Bilirubin (Negative) Urine Urobilinogen (Negative) Ur Leukocyte Esterase (Negative) Nasal Screen MRSA (PCR) (Negative) Vancomycin Trough 11.0 (See Comment) mcg/ml Influenza Type A (PCR) (Neg) Influenza Type B (PCR) (Neg) Blood Type Blood Type Recheck Antibody Screen Crossmatch Imaging Data Radiologist's Impression: Radiology results as stated below per my review and the radiologist's interpretation: CT angio chest PE protocol CT DOSE: 1097.09 mGy.cm HISTORY: 63 years-old Female with PE. Acute shortness of breath TECHNIQUE: Multiple CTA images of the chest were obtained after the intravenous administration of 119 ml Optiray 320. Coronal and sagittal MIPS were obtained from the axial data set and were submitted for review. All measurements were obtained according to NASCET criteria. A dose lowering technique was utilized adhering to the principles of ALARA. COMPARISON: CTA 03/05/2018. FINDINGS: CTA: The heart is mildly enlarged. No pericardial effusion. The thoracic aorta is normal in both course and caliber without aneurysm or dissection. Aberrant course of the right subclavian artery. Imaged great vessels appear patent. The pulmonary arterial tree is opacified to level the proximal segmental branches and demonstrates no focal filling defects to suggest pulmonary thromboembolic disease. Left pectoral Kekxrb-l-Suwl catheter is noted, distal tip terminating within the SVC. CT CHEST: Calcifications are noted about the left paratracheal tissues just inferior to the left thyroid which may reflect a calcified nodule. No adenopathy by CT size criteria. No pneumothorax or pleural effusion. Bilateral mixed interstitial and alveolar opacities are noted within a multi segmental multilobar distribution. There is mild intralobular septal thickening. A few thin-walled pulmonary cysts are noted on the left. There are no suspicious pulmonary nodules or masses. Central airways appear patent. Mild wall thickening about the mid and distal esophagus. Coarse calcifications are noted about the hepatic dome. Cholecystectomy. Soft tissues are unremarkable. Bones appear to be intact. Degenerative changes of the shoulders and spine. IMPRESSION: 1. No acute aortic pathology or evidence of pulmonary thromboembolic disease. 2. Extensive bilateral mixed interstitial and alveolar opacities are seen within a multi segmental and multi lobar distribution suggestive of diffuse multifocal pneumonia. Pulmonary edema considered less likely. 3. Mild cardiomegaly. 4. No pleural effusion or adenopathy. 5. Aberrant right subclavian artery. The above report was generated using voice recognition software. It may contain grammatical, syntax or spelling errors. Electronically signed by: Darius Love M.D. 07/17/2018 8:27 PM XR chest 1V portable CLINICAL HISTORY: Sepsis dyspnea COMPARISON STUDY: 03/04/2018 FINDINGS: Mild cardia megaly. Prominent pulmonary vasculature. No focal infiltrate. Central catheter in superior vena cava. IMPRESSION: Mild congestive failure The above report was generated using voice recognition software. It may contain grammatical, syntax or spelling errors. Electronically signed by: Grzegorz Live M.D. 07/17/2018 6:05 PM Blood Pressure Blood Pressure Findings: Elevated blood pressure Blood Pressure Disposition: further management by hospitalist SAMIA Coronado This is a 63-year-old female male who presents emergency department with a fever. The patient is currently on chemotherapy however that was held this week over concerns that the patient's white blood cell count was too low. Her x-ray is concerning for fluid overload. Her white blood cell count was found to be grossly depressed and the patient is anemic. Due to the fact that the patient is in danger of sepsis and her red blood cell count was found to be low she was typed and screened and crossed for 2 units of packed red blood cells. The patient did sign the consent and it was placed on the chart. Based on the fact that the patient's white blood cell count was also found to be grossly depressed and that she is afebrile, blood cultures were obtained. The patient was given Lasix here in the emergency department as I am concerned she is at risk for fluid overload. She was given a normal saline bolus and started on cefepime Levaquin and daptomycin. Repeat examination revealed improvement in the patient's symptoms. I did discuss the case with the hospitalist service who agreed to admit the patient. Impression & Plan Fever, Breast cancer, right breast, DM II (diabetes mellitus, type II), controlled, Benign essential HTN, Anemia Critical Care Time I have personally spent 90 minutes of critical care time in the direct management of this patient. This includes bedside care, interpretation of diagnostic studies, and testing, discussion with consultants, patient, and family members, and other required patient management activities. This 90 minutes is in excess of all separately billable procedures. Critical Care Time: Yes Total Critical Care Time: 90 Discharge Plan Visit Data *Final* Discharge Date/Time: 07/18/18 00:23 Chief Complaint: Shortness of Breath/Dyspnea Stated Complaint: SOB ED Provider: Bill Gunn Discharge Problem: Fever, Breast cancer, right breast, DM II (diabetes mellitus, type II), controlled, Benign essential HTN, Anemia Patient Disposition: Admitted As Inpatient Discharge Instructions Interventions: ED Discharge Assessment Last Done: 07/18/18 00:23 The scribe's documentation has been prepared under my direction and personally reviewed by me in its entirety. I confirm that the note above accurately reflects all work, treatment, procedures, and medical decision making performed by me.
[2018-07-19] MEDS ORDERED: INSULIN GLARGINE SOLOSTAR 100 UNITS/ML 3 ML PEN SC SCH (21:00)
[2018-07-19] MEDS ORDERED: INSULIN PROTOCOL GOAL RANGE ONE (22:01)
[2018-07-19] MEDS ORDERED: SEVERE STRESS LEVEL ONE (22:01)
[2018-07-19] MEDS ORDERED: NovoLIN-R BOLUS FROM BAG IV ONE (22:30)
[2018-07-19] MEDS: INSULIN REGULAR 250 UNITS in SODIUM CHLORIDE 0.9% 247.5 ML IV SCH (22:37)
[2018-07-20] MEDS ORDERED: INSULIN ASPART 100 UNITS/ML 3 ML PEN SC SCH
[2018-07-20] MEDS: methylPREDNISolone 60 MG in SYRINGE 0 ML IV SCH ×4 (01:58→19:44)
[2018-07-20] MEDS: CEFEPIME 2,000 MG in SYRINGE 7.5 ML IV SCH ×3 (03:05→18:44)
[2018-07-20] MEDS: VANCOMYCIN HCL 1,250 MG in SODIUM CHLORIDE 0.9% 250 ML IV SCH ×2 (03:57→17:04)
[2018-07-20 04:49] LABS: Hematocrit (blood only) 33.1 % (37-47); Hemoglobin 10.9 g/dL (12.0-16.0); Mean Corpuscular Hgb Conc 32.9 g/dL (32-36); Mean Platelet Volume 9.9 fL (7.4-10.4); Platelet Count 185 K/uL (130-400); RDW Coefficient of Variation 18.3 % (11.5-14.5); Red Blood Count 3.72 M/uL (4.2-5.4); White Blood Count 4.47 K/uL (4.8-10.8)
[2018-07-20 05:20] LABS: BUN Creatinine Ratio 19.2 (10-20); Calcium 8.6 mg/dl (8.5-10.1); Creatinine Clr Calc Pharmacy 78.3 ml/min; Est GFR (African American) 84.5; Est GFR (Non-African American) 72.9; Magnesium 2.2 mg/dl (1.8-2.4); Potassium 3.6 mmol/L (3.5-5.1)
[2018-07-20] MEDS: LEVOTHYROXINE SODIUM 25 MCG TABLET PO SCH (06:13)
[2018-07-20] MEDS: LEVOTHYROXINE SODIUM 200 MCG TABLET PO SCH (06:13)
[2018-07-20] MEDS: ALBUT/IPRATROP 3MG/0.5MG NEB 3 ML VIAL NEB SCH ×3 (07:08→20:00)
[2018-07-20] MEDS: GABAPENTIN 100 MG CAP PO SCH ×3 (08:22→21:35)
[2018-07-20] MEDS: FLUOXETINE HCL 20 MG CAP PO SCH (08:22)
[2018-07-20] MEDS: METOPROLOL SUCC 25MG EXT REL TAB PO SCH (08:22)
[2018-07-20] MEDS: LOSARTAN POTASSIUM 50 MG TAB PO SCH (08:22)
[2018-07-20] MEDS: ENOXAPARIN INJ 40 MG/0.4 ML SYR SQ SCH (08:22)
[2018-07-20] MEDS: INSULIN ASPART 100 UNITS/ML 3 ML PEN SC SCH ×4 (08:24→21:38)
[2018-07-20] MEDS: INSULIN GLARGINE SOLOSTAR 100 UNITS/ML 3 ML PEN SC SCH ×2 (08:25→21:36)
--- NOTE | 2018-07-20 09:00 | Critical Care Progress Note ---
Date of Service July 20, 2018 Assessment & Plan (1) Acute respiratory failure with hypoxia: Reason Critically Ill: 63-year-old female with a PMHx of DM, obesity, metastatic breast cancer s/p bilateral masectomy + 4 cycles VAC + 8 cycles of taxol last 07/07 who presented to the hospital with increasing shortness of breath and who was admitted for acute hypoxic respiratory failure 2/2 CAP with a possible element of ILD in context of chemotherapy tx. She was transferred to the ICU for hypoxia with an ABG showing respiratory alkalosis and is doing well. Neuro - CAM ICU: NEGATIVE Depression: Continue CHARGE MANAGER Fluoxetine 40mg PO qAM Cardiac - HLD: ASA held in the setting of anticoagulation. eHTN: Losartan 100mg qAM, Metoprolol succinate 25mg daily. Hctz held 2/2 hypovolemia. TTE today shows showed EF 65-70%, low suspicion for heart failure Respiratory - Acute Hypoxic Respiratory Failure 2/2 CAP. Febrile to tmax 38.2, hypoxemic, tachycardic on admission with elevated lactate, steadily improving. Mildly leukopenic on admission. - On Abx day 2 (Vancomycin 1250mg Q12H started 07/18, Cefepime 2g Q8H started 07/18, Azithromycin 500mg daily started 07/18). Anticipate total Abx course 7-10 days. - May have an underlying element of poor poor pulmonary reserve in the setting of multiple rounds of chemotherapy with induction of ILD. - Methylprednisolone 60mg Q6H started 07/19. Recommend 5 day total burst of steroids, consider taper pending clinical course. If doing well, convert to oral prednisone 70mg tomorrow. - Albuterol NEB Q2H PRN - On vapotherm titrated down to FiO2 55%, tolerating well. Continue to wean targeting room air. No home O2 requirements. - Echo shows preserved EF 60-65%, unlikely to be contributing to her shortness of breath GI - T2 diabetic diet RENAL/LYTES - - No significant electrolyte derangement. (136/3.6/104/26) - K corrected from 3.2 to 3.6 with 40meQ KCl PO, Magnesium 2.2.Continue repletion as needed. - Cr normal. - - No concerns at this time. - I 2L, O 2.3L net 361mL UOP .91cc/kg/hr ENDO - Type 2 DM, last A1C 7.2% - Stress dosed SSI insulin while on steroids. - glucose range 137-229 over last 24 hours. Goal range 120-180mg/dL Hypothyroidism - Levothyroxine 225mcg daily. - TSH 02/2018 = 3.6, wnl HEME - Anemia likely 2/2 chemotherapy suppression - Stable H&H. (10.9, 33) - Daily CBC Right Breast Cancer, last taxol chemotherapy ~13 days ago - Stable, heme-onc has not been consulted at this time ID - CAP Management as noted above. Monitor fever curve. Afebrile since noon 07/19. INTEGUMENTARY - No new lesions/rash. LINES/IV ACCESS - PIVs intact. DVT PROPHYLAXIS - Enoxaparin 40mg SQ daily Disposition: Stable, doing well. Anticipate possible downgrade from ICU today if continuing to do clinically well. Thank you for allowing us to be part of this patient's care. Please refer to Dr. Walker's documentation for any further recommendations. (2) Electrolyte abnormality: (3) Diarrhea: (4) DVT prophylaxis: (5) Anemia: (6) Multifocal pneumonia: (7) Peripheral neuropathy: (8) Venous insufficiency (chronic) (peripheral): (9) Sepsis: (10) DM II (diabetes mellitus, type II), controlled: (11) Benign essential HTN: (12) Morbid obesity with BMI of 50.0-59.9, adult: Supervising Physician Co-Signing Physician Notes seen and examined with Dr. Patino agree with above except as documented below breathing improving today Constitutional: Comfortable NAD on 55% HEENT: normocephalic atraumatic. CV: RRR nl s1,s2 no murmurs rubs or gallops Lungs: scattered crackles bilaterally. no accessory muscle use Abd: soft nontender nondistended. normal bowel sounds Ext: trace edema. no cyanosis, no clubbing Skin: warm dry Neuro: alert and oriented. moving all extremities Psych: normal mood and affect Neuro- awake alert CV- HD stable. echo with EF 65-70% and LVH Pulmonary- acute hypoxic respiratory failure with bilateral infiltrates. pneumonia vs pneumonitis possibly from chemotherapy. less likely cardiogenic pulmonary edema. oxygenation improving titrate fio2 for sat >90% continue steroids. likely taper tommorow if improving ID- possible pneumonia on cefepime, azithromycin and vancomycin. follow cultures Renal-cr ok GI- diet as tolerated Heme- anemia. hx of breast CA Endocrine- blood sugars controlled on insulin drip. sugars high likely related to steroids. levothyroxine for hypothyroidism Dispo- if continues to improve can possibly transfer out of ICU later today Subjective Kassi reports she feels she is doing well today. She notes her breathing feels 'like night and day' better compared to the last few days. She is not having any shortness of breath at rest this morning. She is eating breakfast comfortably in bed at time of visit. Denies fevers, chills, sweats. No chest pain. She does not have any questions of concerns at time of visit. Review of Systems Constitutional: + fatigue; no fever, no chills, no sweats and no weakness Eyes: no worsening vision and no problem reported Ear, Nose, Mouth, Throat: no problem reported Respiratory: + cough (mild intermittent); no chest congestion, no dyspnea, no dyspnea on exertion and no sputum production Cardiovascular: no chest pain, no chest pain at rest, no dyspnea, no orthopnea, no palpitations and no lightheadedness Gastrointestinal: no abdominal pain, no heartburn, no nausea, no vomiting and no problem reported Genitourinary: no dysuria, no difficulty urinating and no problem reported Musculoskeletal: Endorses some tenderness in her lowe legs bilaterally. Endorses some intermittent lower leg bilateral edema, none present today. Integumentary: no rash and no new lesions Neurologic: no localized weakness, no generalized weakness and no headache(s) Physical Exam Physical Exam: General: A&Ox3. NAD. Cooperative. HEENT: Atraumatic, normocephalic. Pulm: Trace bibasilar crackles, otherwise CTAB A&P. -wheezes, -rales, -rhonchi. Symmetrical chest rise. No increase work of breathing. No respiratory distress. On .55FiO2 vapotherm Cardiac: RRR. i/vi systolic murmur. -rubs/gallops. Trace bilateral lower leg edema. radial pulses intact and symmetrical. Abdominal: Obese, Nontender, nondistended, soft. BS present. Neuro: Moves all extremities equally, no gross deficits. Speech with normal fluency, volume, and prosody. Results & Data Vital Signs (Past 12 Hours) Vital Signs Temp Pulse Pulse Resp BP Pulse Ox 07/20/18 07:08 86 18 96 07/20/18 06:02 69 17 107/61 95 07/20/18 06:00 73 16 93 07/20/18 05:12 86 15 92 07/20/18 05:02 75 25 H 101/73 94 07/20/18 05:00 71 23 94 07/20/18 04:03 75 12 116/67 91 07/20/18 04:00 36.9 C 79 17 93 07/20/18 03:03 58 L 24 97 07/20/18 03:02 65 22 82/54 L 95 07/20/18 03:00 62 19 95 07/20/18 02:02 62 24 90/57 L 96 07/20/18 02:00 73 23 95 07/20/18 01:21 78 23 93 07/20/18 01:02 76 17 115/60 96 07/20/18 01:00 78 21 94 07/20/18 00:31 75 22 95/56 L 96 07/20/18 00:02 77 22 88/58 L 96 07/20/18 00:00 77 26 H 95 07/19/18 23:33 81 24 94 07/19/18 23:32 79 25 H 96/57 L 95 07/19/18 23:02 79 21 101/44 L 94 07/19/18 23:00 72 24 95 07/19/18 22:48 71 22 95 07/19/18 22:32 75 24 100/59 L 97 07/19/18 22:03 75 28 H 96 07/19/18 22:02 76 26 H 110/60 96 07/19/18 22:00 90 25 H 96 07/19/18 21:32 89 15 113/63 95 07/19/18 21:30 88 28 H 97 07/19/18 21:06 87 28 H 95 07/19/18 21:03 89 19 115/58 L 95 07/19/18 21:00 89 16 94 Laboratory Results Abnormal lab results 07/19/18 07/19/18 07/19/18 Range/Units 11:29 16:15 16:25 WBC (4.8-10.8) K/uL RBC (4.2-5.4) M/uL Hgb (12.0-16.0) g/dL Hct (37-47) % RDW Std Deviation (36.4-46.3) fL RDW Coeff of Rosa (11.5-14.5) % ABG pH 7.48 H (7.35-7.45) ABG pCO2 29 L (35-46) mmHg ABG pO2 48 L (80-95) mm/Hg ABG O2 Saturation 85.0 L (90-95) % Glucose (70-99) mg/dl POC Glucose 247 H 223 H (70-99) 07/19/18 07/19/18 07/19/18 Range/Units 21:25 21:27 23:51 WBC (4.8-10.8) K/uL RBC (4.2-5.4) M/uL Hgb (12.0-16.0) g/dL Hct (37-47) % RDW Std Deviation (36.4-46.3) fL RDW Coeff of Rosa (11.5-14.5) % ABG pH (7.35-7.45) ABG pCO2 (35-46) mmHg ABG pO2 (80-95) mm/Hg ABG O2 Saturation (90-95) % Glucose (70-99) mg/dl POC Glucose 316 H* 326 H* 321 H* (70-99) 07/20/18 07/20/18 07/20/18 Range/Units 00:49 01:49 02:53 WBC (4.8-10.8) K/uL RBC (4.2-5.4) M/uL Hgb (12.0-16.0) g/dL Hct (37-47) % RDW Std Deviation (36.4-46.3) fL RDW Coeff of Rosa (11.5-14.5) % ABG pH (7.35-7.45) ABG pCO2 (35-46) mmHg ABG pO2 (80-95) mm/Hg ABG O2 Saturation (90-95) % Glucose (70-99) mg/dl POC Glucose 310 H* 293 H 262 H (70-99) 07/20/18 07/20/18 07/20/18 Range/Units 03:49 04:24 04:24 WBC 4.47 L (4.8-10.8) K/uL RBC 3.72 L (4.2-5.4) M/uL Hgb 10.9 L (12.0-16.0) g/dL Hct 33.1 L (37-47) % RDW Std Deviation 58.0 H (36.4-46.3) fL RDW Coeff of Rosa 18.3 H (11.5-14.5) % ABG pH (7.35-7.45) ABG pCO2 (35-46) mmHg ABG pO2 (80-95) mm/Hg ABG O2 Saturation (90-95) % Glucose 203 H (70-99) mg/dl POC Glucose 233 H (70-99) 07/20/18 07/20/18 07/20/18 Range/Units 04:50 05:50 06:47 WBC (4.8-10.8) K/uL RBC (4.2-5.4) M/uL Hgb (12.0-16.0) g/dL Hct (37-47) % RDW Std Deviation (36.4-46.3) fL RDW Coeff of Rosa (11.5-14.5) % ABG pH (7.35-7.45) ABG pCO2 (35-46) mmHg ABG pO2 (80-95) mm/Hg ABG O2 Saturation (90-95) % Glucose (70-99) mg/dl POC Glucose 207 H 173 H 177 H (70-99) 07/20/18 Range/Units 07:38 WBC (4.8-10.8) K/uL RBC (4.2-5.4) M/uL Hgb (12.0-16.0) g/dL Hct (37-47) % RDW Std Deviation (36.4-46.3) fL RDW Coeff of Rosa (11.5-14.5) % ABG pH (7.35-7.45) ABG pCO2 (35-46) mmHg ABG pO2 (80-95) mm/Hg ABG O2 Saturation (90-95) % Glucose (70-99) mg/dl POC Glucose 167 H (70-99) Medications Administered Current Inpatient Medications Acetaminophen (Tylenol) 650 mg PO Q4H PRN PRN Reason: pain/fever Stop: 08/17/18 01:01 Last Admin: 07/18/18 23:07 Dose: 650 mg Documented by: Hydrocodone Bitart/Acetaminophen ([place] 5/325) 1 tab PO Q6H PRN PRN Reason: Pain Stop: 07/31/18 22:56 Albuterol (Duoneb) 3 ml NEB Q6RWA [facility] Stop: 08/18/18 14:59 Last Admin: 07/20/18 07:08 Dose: 3 ml Documented by: Azithromycin (Zithromax) 500 mg PO Q24H [facility] Stop: 07/25/18 08:59 Lidocaine HCl 60 ml/Diphenhydramine HCl 150 mg/ Al Hydrox/Mg Hydrox/Simethicone 60 ml/ Glycerin 60 ml/ [employer] 1 ea 0 ml MT UD PRN PRN Reason: mouth sores Stop: 08/17/18 22:31 Last Admin: 07/19/18 15:11 Dose: 15 ml Documented by: Cyclobenzaprine HCl (Flexeril) 10 mg PO TID PRN PRN Reason: Muscle Spasm Stop: 08/16/18 22:56 Dextrose (Dextrose 50%) 25 - 50 ml IV UD PRN; Protocol PRN Reason: Hypoglycemia Protocol Stop: 08/17/18 01:01 Enoxaparin Sodium (Lovenox) 40 mg SQ Q24H [facility] Stop: 08/17/18 08:59 Last Admin: 07/20/18 08:22 Dose: 40 mg Documented by: Fluoxetine HCl (Prozac) 40 mg PO QAM [facility] Stop: 08/17/18 08:59 Last Admin: 07/20/18 08:22 Dose: 40 mg Documented by: Gabapentin (Neurontin) 200 mg PO TID [facility] Stop: 08/17/18 08:59 Last Admin: 07/20/18 08:22 Dose: 200 mg Documented by: Glucagon (Glucagen) 1 mg SQ UD PRN; Protocol PRN Reason: Hypoglycemia Protocol Stop: 08/17/18 01:01 Glucose (Dex4 Glucose) 4 - 8 tabs PO UD PRN; Protocol PRN Reason: Hypoglycemia Protocol Stop: 08/17/18 01:01 Glucose (Glucose 40%) 15 - 30 gm PO UD PRN; Protocol PRN Reason: Hypoglycemia Protocol Stop: 08/17/18 01:01 Guaifenesin/Dextromethorphan (Robitussin Cough-Chest Dm) 10 ml PO Q6H PRN PRN Reason: Cough Stop: 08/18/18 09:39 Heparin Sodium (Porcine) (Heparin Sod 100 Unit/Ml Flush) 5 ml FLUSH PRN PRN PRN Reason: Flush Stop: 08/17/18 01:29 Last Admin: 07/18/18 12:29 Dose: 5 ml Documented by: Hydrochlorothiazide (Hctz) 12.5 mg PO QAM [facility] Stop: 08/17/18 08:59 Last Admin: 07/18/18 08:10 Dose: 12.5 mg Documented by: Cefepime HCl 2,000 mg/ Syringe 20 mls @ 5.5 mls/min IV Q8H [facility] Stop: 07/25/18 02:59 Last Admin: 07/20/18 03:05 Dose: 5.5 mls/min Documented by: Vancomycin HCl 1,250 mg/ (Sodium Chloride) 275 mls @ 125 mls/hr IV Q12H [facility]; Protocol Stop: 07/25/18 15:59 Last Infusion: 07/20/18 06:10 Dose: Infused Documented by: Methylprednisolone 60 mg/ (Syringe) 0.96 mls @ 1.5 mls/min IV Q6H [facility] Stop: 08/18/18 19:59 Last Admin: 07/20/18 08:21 Dose: 1.5 mls/min Documented by: Insulin Human Regular 250 (units/ Sodium Chloride) 250 mls @ 7.4 mls/hr IV .Q24H [facility]; Protocol Stop: 08/18/18 22:14 Last Titration: 07/20/18 06:45 Dose: 7.4 units/hr, 7.4 mls/hr Documented by: Insulin Aspart ([facility]olog Flexpen) [facility] Stop: 08/19/18 08:59 Last Admin: 07/20/18 08:24 Dose: 7 units Documented by: Insulin Glargine (Lantus Solostar Pen) 0 units SC BID [facility]; Protocol Stop: 08/18/18 20:59 Last Admin: 07/20/18 08:25 Dose: 30 units Documented by: [facility]: 08/17/18 06:29 Last Admin: 07/20/18 06:13 Dose: 200 mcg Documented by: Levothyroxine S[facility] ([facility]throid) [facility] Stop: 08/17/18 06:29 Last Admin: 07/20/18 06:13 Dose: 25 mcg Documented by: Losartan Potassium (Cozaar) 100 mg PO QAM [facility] Stop: 08/17/18 08:59 Last Admin: 07/20/18 08:22 Dose: 100 mg Documented by: Meclizine HCl (Antivert) 25 mg PO DAILY PRN PRN Reason: Dizziness Stop: 08/16/18 22:56 Metoprolol Succinate (Toprol Xl) 25 mg PO DAILY [facility] Stop: 08/17/18 08:59 Last Admin: 07/20/18 08:22 Dose: 25 mg Documented by: Miscellaneous (Carbohydrates For Hypoglycemia) 15 - 30 gm PO UD PRN PRN Reason: Hypoglycemia Treatment Stop: 08/17/18 01:01 Miscellaneous Information (Consult) 1 ea N/A UD PRN PRN Reason: Consult Stop: 08/17/18 03:33 Miscellaneous Information (Consult Glycemic Management Pharmacy) 1 ea N/A UD PRN PRN Reason: Consult Stop: 08/18/18 14:24 Ondansetron HCl (Zofran) 4 mg PO Q6H PRN PRN Reason: Nausea Stop: 08/18/18 09:25 Last Admin: 07/19/18 11:19 Dose: 4 mg Documented by: Polyethylene Glycol (Miralax Powder Packet) 17 gm PO DAILY PRN PRN Reason: Constipation Stop: 08/17/18 01:01 Sodium Chloride ([place] Nasal) 2 sprays NA Q2H PRN PRN Reason: congestion Stop: 08/17/18 11:44 Tramadol HCl (Ultram) 50 mg PO Q6H PRN PRN Reason: Pain Stop: 08/16/18 22:56 Resident Activity Tracking Resident Involvement: Resident Care Provided Care Provided: Adult Hospital Medicine (1) Sepsis Sepsis type: sepsis due to unspecified organism Qualified Code(s): A41.9 - Sepsis, unspecified organism
[2018-07-20] MEDS: AZITHROMYCIN 250 MG TAB PO SCH (11:41)
[2018-07-20] MEDS: LIDOCAINE HCL 2% VISCOUS 60 ML, DiphenhydrAMINE Syrup 150 MG, ALUMINUM/MAGNESIUM SUSP 6... MT PRN ×2 (11:42→17:08)
--- NOTE | 2018-07-20 13:20 | Hospitalist Progress Note ---
Date of Service July 20, 2018 Assessment & Plan (1) Acute respiratory failure with hypoxia: The evening of 07/19, patient went into hypoxemic respiratory failure, requiring high flow nasal cannula. CXR showed diffuse opacities, concerning for multifocal pneumonia or drug-induced lung injury. - By 07/20, slowly weaning O2 and improved shortness of breath. - Echo on 07/20 showed EF 65-70%; low likelihood of heart failure playing a role - Continue vanc/cefepime/azithromycin - Continue Solumedrol 60 mg IV q6hr for treatment of chemo induced interstitial lung disease. (2) Multifocal pneumonia: CT chest on 07/17 showed multifocal PNA. - Continue Cefepime/Azithromycin/Vancomycin for empiric coverage - Robitussin DM prn cough. - Duonebs q6hr scheduled while awake. (3) Sepsis: Febrile, tachycardic with concern for pulmonary source. Lactic acid level was 2.2. - Received IV fluids -- discontinued for concern for CHF. - Treatment of pneumonia as noted. (4) Breast cancer, right breast: Currently receiving Taxol chemotherapy weekly. - Consider oncology consult. (5) Anemia: In setting of chemotherapy. Hgb was 8.4 at admission, received 2 units pRBCs with improvement. - Monitor CBC qAM. (6) DM II (diabetes mellitus, type II), controlled: Hgb A1C was 7.2% in 06/2018. - Pharmacy consulted for glycemic management in setting of IV steroids. (7) Hypothyroidism: - Continue Synthroid 225 mcg daily. - Most recent TSH was 3.6 in Feb 2018. (8) Benign essential HTN: BP presently 100/60 in the ICU. - Continue losartan & metoprolol as prescribed. - Holding home HCTZ in setting of dehydration. (9) Depression: Normal affect on exam today. - Continue Prozac as prescribed. (10) Back pain: - Continue Gabapentin as prescribed. (11) DVT prophylaxis: - Lovenox q24hr. Subjective Feeling well this morning. No shortness of breath. Reports no fevers/chills, chest pain, shortness of breath, abdominal pain, nausea, or vomiting. Review of Systems Respiratory: + cough, + chest congestion, + dyspnea, + dyspnea on exertion and + sputum production; no wheezing Gastrointestinal: + diarrhea/loose stools; no abdominal pain, no nausea and no vomiting Physical Exam Constitutional: WD/WN, vitals as above + morbidly obese Eyes: PERRL, conjunctivae normal, anicteric sclerae Neck: normal visual inspection Respiratory: normal respiratory effort; no respiratory distress and no labored breathing Auscultation: + crackles (bibasilar) Cardiovascular: Rate/Rhythm: regular rate and regular rhythm Heart Sounds: + murmur (HESHAM) Extremities: + pedal edema Chest (Breasts): Breast: + abnormal inspection of breast (s/p bilateral mastectomy) Gastrointestinal (Abdomen): normal bowel sounds, soft, nontender, no hepatosplenomegaly Skin: no rashes, warm and dry Results & Data Vital Signs (Past 12 Hours) Vital Signs Temp Pulse Pulse Resp BP Pulse Ox 07/20/18 12:00 84 29 H 100 07/20/18 11:04 94 07/20/18 11:02 85 19 100/58 L 96 07/20/18 10:44 89 18 103/69 99 07/20/18 10:02 87 28 H 112/64 94 07/20/18 09:02 36.9 C 90 20 120/60 95 07/20/18 08:02 98 H 18 93/63 L 96 07/20/18 07:08 86 18 96 07/20/18 07:02 71 24 108/65 95 07/20/18 06:02 69 17 107/61 95 07/20/18 06:00 73 16 93 07/20/18 05:12 86 15 92 07/20/18 05:02 75 25 H 101/73 94 07/20/18 05:00 71 23 94 07/20/18 04:03 75 12 116/67 91 07/20/18 04:00 36.9 C 79 17 93 07/20/18 03:03 58 L 24 97 07/20/18 03:02 65 22 82/54 L 95 07/20/18 03:00 62 19 95 07/20/18 02:02 62 24 90/57 L 96 07/20/18 02:00 73 23 95 07/20/18 01:21 78 23 93 (1) Sepsis Sepsis type: sepsis due to unspecified organism Qualified Code(s): A41.9 - Sepsis, unspecified organism
--- NOTE | 2018-07-20 13:41 | Pharmacy Report ---
Pharmacy Glycemic Short Note 2 - Date of Service July 20, 2018 - Glycemic Short BSG Results (Last 24 hours): 07/19/18 07/19/18 07/19/18 16:25 21:25 21:27 Glucose POC Glucose 223 H 316 H* 326 H* 07/19/18 07/20/18 07/20/18 23:51 00:49 01:49 Glucose POC Glucose 321 H* 310 H* 293 H 07/20/18 07/20/18 07/20/18 02:53 03:49 04:24 Glucose 203 H POC Glucose 262 H 233 H 07/20/18 07/20/18 07/20/18 04:50 05:50 06:47 Glucose POC Glucose 207 H 173 H 177 H 07/20/18 07/20/18 07/20/18 07:38 09:46 10:55 Glucose POC Glucose 167 H 258 H 201 H 07/20/18 07/20/18 11:54 12:50 Glucose POC Glucose 186 H 245 H OUTPATIENT ANTIDIABETIC REGIMEN: * Tresiba 60-65 units SQ daily * Novolog 9 units with break/13 units with lunch/15 units with dinner + sliding scale * Metformin 1000 mg PO BID * Doses from [facility] (may 2018 visit) - of note, patient recently on DXM as out patient * A1c 7.2% 07/18/18 ASSESSMENT: 07/20 * Patient transferred to ICU overnight, solumedrol 60 mg IV q6 added and subsequent increase in BSGs * Started on insulin infusion, currently running at 7.1 units/hr * Continuing lantus scale BID to help assist transition off of drip * Plan to continue drip for now as steroids are being continued, will set carb ratio at 4 07/19 * Kassi is a 63 yr old T2DM female admitted for acute respiratory failure likely due to pneumonia. She has been started on Solu-medrol 60 mg IV q6hr for treatment of chemo induced interstitial lung disease. She received a total of 61 units of insulin yesterday with all BSGs above goal range. * She takes large doses of insulin as an outpatient (over 100 units per day). * Changes needed to insulin regimen: * Increase basal insulin. Kassi received a total of 40 units of Lantus yesterday (compared to 60-65 units at home). Fasting BSG from this morning was elevated, 152 mg/dL. A dose of 20 units will be given now, then BID per scale. * Tighten Novolog CF/CR and add overnight checks * If BSGs remain > 250 mg/dL despite changes, patient may require IV insulin infusion PLAN FOR INPATIENT GLYCEMIC CONTROL: * Hold outpatient oral diabetes medications * Basal insulin * Lantus 30 units SQ given this AM * per scale BID: * 25 units for BSG 110-140 * 30 units for BSG 140 - 180 * 35 units for BSG >180 * Continue insulin infusion, set PC mealtime carb ratio to 4
[2018-07-20] MEDS ORDERED: VANCOMYCIN TROUGH ONE (15:30)
--- NOTE | 2018-07-20 20:48 | Pharmacy Report ---
Pharmacy Abx Dose Short Note - Date of Service July 20, 2018 - Assessment & Plan Assessment 63 year old F receiving Vancomycin for treatment of pneumonia Day # 3 of antimicrobial therapy. Laboratory Tests 07/20/18 15:35 Vancomycin Trough 13.0 Plan Vancomycin * Trough level of 13.0 mcg/mL is slightly subtherapeutic but hesitate to change interval due to potential of accumulation. * Continue dose of 1250 mg IV every 12 hours * Goal trough level for pneumonia : 15 to 20 mcg/mL Pharmacy will continue to follow and will adjust dose/frequency as necessary. Thank you.
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
[2018-07-21] MEDS: INSULIN REGULAR 250 UNITS in SODIUM CHLORIDE 0.9% 247.5 ML IV SCH (00:45)
[2018-07-21] MEDS: methylPREDNISolone 60 MG in SYRINGE 0 ML IV SCH ×4 (02:05→20:18)
[2018-07-21] MEDS: CEFEPIME 2,000 MG in SYRINGE 7.5 ML IV SCH ×3 (02:06→18:50)
[2018-07-21] MEDS: VANCOMYCIN HCL 1,250 MG in SODIUM CHLORIDE 0.9% 250 ML IV SCH (04:17)
[2018-07-21 04:44] LABS: Hematocrit (blood only) 30.8 % (37-47); Mean Corpuscular Hgb Conc 32.5 g/dL (32-36); Mean Corpuscular Volume 89.8 fL (80-100); Mean Platelet Volume 9.8 fL (7.4-10.4); Platelet Count 211 K/uL (130-400); RDW Coefficient of Variation 18.6 % (11.5-14.5); Red Blood Count 3.43 M/uL (4.2-5.4); White Blood Count 11.84 K/uL (4.8-10.8)
[2018-07-21 05:05] LABS: BUN Creatinine Ratio 36.8 (10-20); Calcium 8.9 mg/dl (8.5-10.1); Creatinine Clr Calc Pharmacy 88.5 ml/min; Est GFR (Non-African American) 88.9; Potassium 3.8 mmol/L (3.5-5.1)
[2018-07-21] MEDS: LEVOTHYROXINE SODIUM 200 MCG TABLET PO SCH (06:20)
[2018-07-21] MEDS: LEVOTHYROXINE SODIUM 25 MCG TABLET PO SCH (06:20)
[2018-07-21] MEDS: ALBUT/IPRATROP 3MG/0.5MG NEB 3 ML VIAL NEB SCH ×3 (07:06→18:56)
[2018-07-21] MEDS: METOPROLOL SUCC 25MG EXT REL TAB PO SCH (07:51)
[2018-07-21] MEDS: GABAPENTIN 100 MG CAP PO SCH ×3 (07:54→20:18)
[2018-07-21] MEDS: AZITHROMYCIN 250 MG TAB PO SCH (07:55)
[2018-07-21] MEDS: FLUOXETINE HCL 20 MG CAP PO SCH (07:55)
[2018-07-21] MEDS: LOSARTAN POTASSIUM 50 MG TAB PO SCH (07:57)
[2018-07-21] MEDS: INSULIN ASPART 100 UNITS/ML 3 ML PEN SC SCH ×4 (07:58→20:55)
[2018-07-21] MEDS: ENOXAPARIN INJ 40 MG/0.4 ML SYR SQ SCH (07:59)
--- NOTE | 2018-07-21 08:26 | Hospitalist Progress Note ---
Date of Service July 21, 2018 Assessment & Plan (1) Acute respiratory failure with hypoxia: The evening of 07/19, patient went into hypoxemic respiratory failure, requiring high flow nasal cannula. CXR showed diffuse opacities, concerning for multifocal pneumonia or drug-induced lung injury. - By 07/20, slowly weaning O2 and improved shortness of breath. - Echo on 07/20 showed EF 65-70%; low likelihood of heart failure playing a role - Continue vanc/cefepime/azithromycin - Continue Solumedrol for treatment of chemo-induced interstitial lung disease; tapered to Q12h on 07/21 - Breathing improving; likely transfer from ICU today. (2) Multifocal pneumonia: CT chest on 07/17 showed multifocal PNA. - Continue Cefepime/Azithromycin/Vancomycin for empiric coverage - Robitussin DM prn cough. - Duonebs q6hr scheduled while awake. (3) Sepsis: Febrile, tachycardic with concern for pulmonary source. Lactic acid level was 2.2. - Received IV fluids -- discontinued for concern for CHF. - Treatment of pneumonia as noted. (4) Breast cancer, right breast: Currently receiving Taxol chemotherapy weekly. - Consider oncology consult. (5) Anemia: In setting of chemotherapy. Hgb was 8.4 at admission, received 2 units pRBCs with improvement. - Hgb stable at 10.0 on 07/21; monitor CBC qAM. (6) DM II (diabetes mellitus, type II), controlled: Hgb A1C was 7.2% in 06/2018. - Pharmacy consulted for glycemic management in setting of IV steroids. (7) Hypothyroidism: - Continue Synthroid 225 mcg daily. - Most recent TSH was 3.6 in Feb 2018. (8) Benign essential HTN: BP presently 100/60 in the ICU. - Continue losartan & metoprolol as prescribed. - Holding home HCTZ in setting of dehydration. (9) Depression: Normal affect on exam today. - Continue Prozac as prescribed. (10) Back pain: - Continue Gabapentin as prescribed. (11) DVT prophylaxis: - Lovenox q24hr. Subjective Feeling well this morning. No major complaints. Reports some annoyance with BiPap overnight, but otherwise, no overnight issues. Less shortness of breath. Reports no fevers/chills, chest pain, abdominal pain, nausea, or vomiting. Review of Systems Respiratory: + cough, + chest congestion, + dyspnea, + dyspnea on exertion and + sputum production; no wheezing Gastrointestinal: + diarrhea/loose stools; no abdominal pain, no nausea and no vomiting Physical Exam Constitutional: WD/WN, vitals as above + morbidly obese Eyes: PERRL, conjunctivae normal, anicteric sclerae Neck: normal visual inspection Respiratory: normal respiratory effort; no respiratory distress and no labored breathing Auscultation: + crackles (bibasilar) Cardiovascular: Rate/Rhythm: regular rate and regular rhythm Heart Sounds: + murmur (HESHAM) Extremities: + pedal edema Chest (Breasts): Breast: + abnormal inspection of breast (s/p bilateral mastectomy) Gastrointestinal (Abdomen): normal bowel sounds, soft, nontender, no hepatosplenomegaly Skin: no rashes, warm and dry Results & Data Vital Signs (Past 12 Hours) Vital Signs Temp Pulse Pulse Resp BP Pulse Ox 07/21/18 07:20 70 20 100 07/21/18 07:00 62 13 100 07/21/18 06:02 62 18 103/61 100 07/21/18 06:00 63 22 99 07/21/18 05:58 65 20 99 07/21/18 05:02 71 106/64 97 07/21/18 05:00 75 100 07/21/18 04:03 68 99 07/21/18 04:02 36.8 C 64 135/88 100 07/21/18 03:02 74 128/76 100 07/21/18 03:00 73 99 07/21/18 02:14 82 23 100 07/21/18 02:02 70 15 113/71 100 07/21/18 02:00 64 17 100 07/21/18 01:02 79 17 116/70 100 07/21/18 01:00 71 100 07/21/18 00:02 79 18 125/71 100 07/21/18 00:00 76 17 99 07/20/18 23:34 72 18 100 07/20/18 23:03 87 28 H 139/67 96 07/20/18 23:00 86 19 97 07/20/18 22:02 84 21 145/72 H 96 (1) Sepsis Sepsis type: sepsis due to unspecified organism Qualified Code(s): A41.9 - Sepsis, unspecified organism
--- NOTE | 2018-07-21 08:30 | Critical Care Progress Note ---
Date of Service July 21, 2018 Assessment & Plan (1) Acute respiratory failure with hypoxia: Reason Critically Ill: 63-year-old female with a PMHx of DM, obesity, metastatic breast cancer s/p bilateral masectomy + 4 cycles VAC + 8 cycles of taxol last 07/07 who presented to the hospital with increasing shortness of breath and who was admitted for acute hypoxic respiratory failure 2/2 CAP with a possible element of ILD in context of chemotherapy tx. She was transferred to the ICU for hypoxia with an ABG showing respiratory alkalosis and is doing well. Neuro - [facility] ICU: NEGATIVE Depression: Continue POST PRODUCTION ASSISTANT Fluoxetine 40mg PO qAM Cardiac - HLD: ASA held in the setting of anticoagulation. eHTN: Losartan 100mg qAM, Metoprolol succinate 25mg daily. Hctz held 2/2 hypovolemia. Continue to hold hctz at this time. TTE today shows showed EF 65-70%, low suspicion for heart failure Respiratory - Acute Hypoxic Respiratory Failure 2/2 CAP vs element of pneumonitis. Febrile to tmax 38.2, hypoxemic, tachycardic on admission with elevated lactate, continues to improve. - On Abx day 3 (Vancomycin 1250mg Q12H started 07/18, Cefepime 2g Q8H started 07/18, Azithromycin 500mg daily started 07/18). - Negative MRSA swab, may Vancomycin d/tamiko and will continue Azithromycin for 5 day course and Cefepime for 7-10 day total course. - May have an underlying element of poor poor pulmonary reserve in the setting of multiple rounds of chemotherapy with induction of ILD. - Methylprednisolone 60mg Q6H started 07/19. Recommend 5 day total burst of steroids and follow clinically - Albuterol NEB Q2H PRN - Weaned to BiPAP 12/27/39 overnight, SpO2>94%. Continue to wean with target SpO2>90%. No need to repeat ABG at this time. - Echo shows preserved EF 60-65%, unlikely to be contributing to her shortness of breath GI - T2 diabetic diet RENAL/LYTES - - No significant electrolyte derangement. (138/3.8/108/24) - K corrected to 3.8. Continue repletion as needed. - Cr normal. (0.73). - - No concerns at this time. In 1.8L, O 1.4L, net +425cc. ENDO - Type 2 DM, last A1C 7.2% - Stress dosed SSI insulin while on steroids. - On regular insulin drip, plan to transition off gtt to subQ today. Total 24hr insulin dose ~235units in context of steroids. - glucose range 89-203 over last 24 hours with good control overnight. Goal range 120-180mg/dL Hypothyroidism - Levothyroxine 225mcg daily. - TSH 02/2018 = 3.6, wnl HEME - Anemia likely 2/2 chemotherapy suppression - Stable H&H. (Hgb 11.2) - Daily CBC Right Breast Cancer, last taxol chemotherapy ~13 days ago - Stable, heme-onc has not been consulted at this time ID - CAP Management as noted above. Monitor fever curve. Afebrile since noon 07/19. INTEGUMENTARY - No new lesions/rash. LINES/IV ACCESS - PIVs intact. DVT PROPHYLAXIS - Enoxaparin 40mg SQ daily Disposition: Stable, doing well. Anticipate downgrade today. Thank you for allowing us to be part of this patient's care. Please refer to Dr. Walker's documentation for any further recommendations. (2) Electrolyte abnormality: (3) Diarrhea: (4) DVT prophylaxis: (5) Anemia: (6) Multifocal pneumonia: (7) Peripheral neuropathy: (8) Venous insufficiency (chronic) (peripheral): (9) Sepsis: (10) DM II (diabetes mellitus, type II), controlled: (11) Benign essential HTN: (12) Morbid obesity with BMI of 50.0-59.9, adult: Supervising Physician Co-Signing Physician Notes seen and examined with Dr. Patino agree with above except as documented below breathing improving today Constitutional: Comfortable NAD on 5 L FM HEENT: normocephalic atraumatic. CV: RRR nl s1,s2 no murmurs rubs or gallops Lungs: scattered crackles bilaterally but improved from yesterday. no accessory muscle use Abd: soft nontender nondistended. normal bowel sounds Ext: trace edema. no cyanosis, no clubbing Skin: warm dry Neuro: alert and oriented. moving all extremities Psych: normal mood and affect A/P: Neuro- awake alert CV- HD stable. echo with EF 65-70% and LVH Pulmonary- acute hypoxic respiratory failure with bilateral infiltrates. pneumonia vs pneumonitis possibly from chemotherapy. less likely cardiogenic pulmonary edema. oxygenation improving titrate fio2 for sat >90% taper steroids to q12 then slowly taper over 2 weeks. ID- possible pneumonia on cefepime, azithromycin. can stop vancomycin with negative MRSA complete 5 days of azithromycin and 7 days of cefepime. follow cultures Renal-cr ok GI- diet as tolerated Heme- anemia. hx of breast CA Endocrine- blood sugars controlled on insulin drip. sugars high likely related to steroids will decrease steroids and transition to SQ insulin levothyroxine for hypothyroidism Dispo- can transfer out of ICU Subjective Feels well today. Mild shortness of breath moving around her bed, but none at rest. Denies chest pain, congestion. No lightheadedness, dizziness, vision change. Ate breakfast this morning with a good appetite and no nausea. Her leg is a 'little achy. It's going to rain." No questions or concerns this morning. Review of Systems Review of Systems: Constitutional: Denies fever, chills, malaise Eyes: Denies vision change, eye pain ENT: Denies ear pain, sore throat, sinus pain. Endorses some tongue discomfort at baseline due to chemo tx. Cardiovascular: Denies Chest pain, chest pressure, palpitations, extremity swelling Respiratory: Denies shortness of breath at rest, cough, sputum production, difficulty breathing Gastrointestinal: Denies abdominal pain, nausea, vomiting Genitourinary: Denies pain with urination, urinary urgency Musculoskeletal: Denies weakness, muscle aches/pain, joint aches/pain Integumentary:Denies rash, lesions, bruising Neurological: Denies headache, focal weakness. Numbness/tingling at baseline unchanged. Physical Exam Physical Exam: General: A&Ox3. NAD. Cooperative. HEENT: Atraumatic, normocephalic. Pulm: CTAB A&P. -wheezes, -rales, -rhonchi. Symmetrical chest rise. No increase work of breathing. No respiratory distress. Cardiac: RRR, -mrg. Radial pulses intact and symmetrical. Abdominal: Obese, Nontender, nondistended, soft. BS present. Skin: L port present, noninjected, nonerythematous, nontender. Results & Data Vital Signs (Past 12 Hours) Vital Signs Temp Pulse Pulse Resp BP Pulse Ox 07/21/18 07:20 70 20 100 07/21/18 07:00 62 13 100 07/21/18 06:02 62 18 103/61 100 07/21/18 06:00 63 22 99 07/21/18 05:58 65 20 99 07/21/18 05:02 71 106/64 97 07/21/18 05:00 75 100 07/21/18 04:03 68 99 07/21/18 04:02 36.8 C 64 135/88 100 07/21/18 03:02 74 128/76 100 07/21/18 03:00 73 99 07/21/18 02:14 82 23 100 07/21/18 02:02 70 15 113/71 100 07/21/18 02:00 64 17 100 07/21/18 01:02 79 17 116/70 100 07/21/18 01:00 71 100 07/21/18 00:02 79 18 125/71 100 07/21/18 00:00 76 17 99 07/20/18 23:34 72 18 100 07/20/18 23:03 87 28 H 139/67 96 07/20/18 23:00 86 19 97 07/20/18 22:02 84 21 145/72 H 96 Laboratory Results 07/21/18 07/21/18 07/21/18 Range/Units 07:19 06:29 06:13 WBC (4.8-10.8) K/uL RBC (4.2-5.4) M/uL Hgb (12.0-16.0) g/dL Hct (37-47) % MCV (80-100) fL MCH (25-34) pg MCHC (32-36) g/dL RDW Std Deviation (36.4-46.3) fL RDW Coeff of Rosa (11.5-14.5) % Plt Count (130-400) K/uL MPV (7.4-10.4) fL Sodium (136-145) mmol/L Potassium (3.5-5.1) mmol/L Chloride (98-107) mmol/L Carbon Dioxide (21-32) mmol/L Anion Gap (3-11) BUN (7-18) mg/dl Creatinine (0.6-1.2) mg/dl Est Cr Clr Drug Dosing ml/min Est GFR ( Amer) Est GFR (Non-Af Amer) BUN/Creatinine Ratio (10-20) Glucose (70-99) mg/dl POC Glucose 144 H 143 H 95 (70-99) Calcium (8.5-10.1) mg/dl Vancomycin Trough (See Comment) mcg/ml 07/21/18 07/21/18 07/21/18 Range/Units 05:01 04:12 04:12 WBC 11.84 H (4.8-10.8) K/uL RBC 3.43 L (4.2-5.4) M/uL Hgb 10.0 L (12.0-16.0) g/dL Hct 30.8 L (37-47) % MCV 89.8 (80-100) fL MCH 29.2 (25-34) pg MCHC 32.5 (32-36) g/dL RDW Std Deviation 59.0 H (36.4-46.3) fL RDW Coeff of Rosa 18.6 H (11.5-14.5) % Plt Count 211 (130-400) K/uL MPV 9.8 (7.4-10.4) fL Sodium 138 (136-145) mmol/L Potassium 3.8 (3.5-5.1) mmol/L Chloride 108 H (98-107) mmol/L Carbon Dioxide 24 (21-32) mmol/L Anion Gap 6.0 (3-11) BUN 27 H D (7-18) mg/dl Creatinine 0.73 (0.6-1.2) mg/dl Est Cr Clr Drug Dosing 88.5 ml/min Est GFR ( Amer) 103.0 Est GFR (Non-Af Amer) 88.9 BUN/Creatinine Ratio 36.8 H (10-20) Glucose 89 (70-99) mg/dl POC Glucose 118 H (70-99) Calcium 8.9 (8.5-10.1) mg/dl Vancomycin Trough (See Comment) mcg/ml 07/21/18 07/21/18 07/21/18 Range/Units 04:00 03:00 02:00 WBC (4.8-10.8) K/uL RBC (4.2-5.4) M/uL Hgb (12.0-16.0) g/dL Hct (37-47) % MCV (80-100) fL MCH (25-34) pg MCHC (32-36) g/dL RDW Std Deviation (36.4-46.3) fL RDW Coeff of Rosa (11.5-14.5) % Plt Count (130-400) K/uL MPV (7.4-10.4) fL Sodium (136-145) mmol/L Potassium (3.5-5.1) mmol/L Chloride (98-107) mmol/L Carbon Dioxide (21-32) mmol/L Anion Gap (3-11) BUN (7-18) mg/dl Creatinine (0.6-1.2) mg/dl Est Cr Clr Drug Dosing ml/min Est GFR ( Amer) Est GFR (Non-Af Amer) BUN/Creatinine Ratio (10-20) Glucose (70-99) mg/dl POC Glucose 97 109 H 108 H (70-99) Calcium (8.5-10.1) mg/dl Vancomycin Trough (See Comment) mcg/ml 07/21/18 07/20/18 07/20/18 Range/Units 01:02 23:59 23:01 WBC (4.8-10.8) K/uL RBC (4.2-5.4) M/uL Hgb (12.0-16.0) g/dL Hct (37-47) % MCV (80-100) fL MCH (25-34) pg MCHC (32-36) g/dL RDW Std Deviation (36.4-46.3) fL RDW Coeff of Rosa (11.5-14.5) % Plt Count (130-400) K/uL MPV (7.4-10.4) fL Sodium (136-145) mmol/L Potassium (3.5-5.1) mmol/L Chloride (98-107) mmol/L Carbon Dioxide (21-32) mmol/L Anion Gap (3-11) BUN (7-18) mg/dl Creatinine (0.6-1.2) mg/dl Est Cr Clr Drug Dosing ml/min Est GFR ( Amer) Est GFR (Non-Af Amer) BUN/Creatinine Ratio (10-20) Glucose (70-99) mg/dl POC Glucose 119 H 121 H 131 H (70-99) Calcium (8.5-10.1) mg/dl Vancomycin Trough (See Comment) mcg/ml 07/20/18 07/20/18 07/20/18 Range/Units 22:00 20:57 20:03 WBC (4.8-10.8) K/uL RBC (4.2-5.4) M/uL Hgb (12.0-16.0) g/dL Hct (37-47) % MCV (80-100) fL MCH (25-34) pg MCHC (32-36) g/dL RDW Std Deviation (36.4-46.3) fL RDW Coeff of Rosa (11.5-14.5) % Plt Count (130-400) K/uL MPV (7.4-10.4) fL Sodium (136-145) mmol/L Potassium (3.5-5.1) mmol/L Chloride (98-107) mmol/L Carbon Dioxide (21-32) mmol/L Anion Gap (3-11) BUN (7-18) mg/dl Creatinine (0.6-1.2) mg/dl Est Cr Clr Drug Dosing ml/min Est GFR ( Amer) Est GFR (Non-Af Amer) BUN/Creatinine Ratio (10-20) Glucose (70-99) mg/dl POC Glucose 144 H 148 H 177 H (70-99) Calcium (8.5-10.1) mg/dl Vancomycin Trough (See Comment) mcg/ml 07/20/18 07/20/18 07/20/18 Range/Units 19:01 18:00 17:01 WBC (4.8-10.8) K/uL RBC (4.2-5.4) M/uL Hgb (12.0-16.0) g/dL Hct (37-47) % MCV (80-100) fL MCH (25-34) pg MCHC (32-36) g/dL RDW Std Deviation (36.4-46.3) fL RDW Coeff of Rosa (11.5-14.5) % Plt Count (130-400) K/uL MPV (7.4-10.4) fL Sodium (136-145) mmol/L Potassium (3.5-5.1) mmol/L Chloride (98-107) mmol/L Carbon Dioxide (21-32) mmol/L Anion Gap (3-11) BUN (7-18) mg/dl Creatinine (0.6-1.2) mg/dl Est Cr Clr Drug Dosing ml/min Est GFR ( Amer) Est GFR (Non-Af Amer) BUN/Creatinine Ratio (10-20) Glucose (70-99) mg/dl POC Glucose 210 H 201 H 173 H (70-99) Calcium (8.5-10.1) mg/dl Vancomycin Trough (See Comment) mcg/ml 07/20/18 07/20/18 07/20/18 Range/Units 16:04 15:35 14:59 WBC (4.8-10.8) K/uL RBC (4.2-5.4) M/uL Hgb (12.0-16.0) g/dL Hct (37-47) % MCV (80-100) fL MCH (25-34) pg MCHC (32-36) g/dL RDW Std Deviation (36.4-46.3) fL RDW Coeff of Rosa (11.5-14.5) % Plt Count (130-400) K/uL MPV (7.4-10.4) fL Sodium (136-145) mmol/L Potassium (3.5-5.1) mmol/L Chloride (98-107) mmol/L Carbon Dioxide (21-32) mmol/L Anion Gap (3-11) BUN (7-18) mg/dl Creatinine (0.6-1.2) mg/dl Est Cr Clr Drug Dosing ml/min Est GFR ( Amer) Est GFR (Non-Af Amer) BUN/Creatinine Ratio (10-20) Glucose (70-99) mg/dl POC Glucose 204 H 220 H (70-99) Calcium (8.5-10.1) mg/dl Vancomycin Trough 13.0 (See Comment) mcg/ml 07/20/18 07/20/18 07/20/18 Range/Units 14:10 12:50 11:54 WBC (4.8-10.8) K/uL RBC (4.2-5.4) M/uL Hgb (12.0-16.0) g/dL Hct (37-47) % MCV (80-100) fL MCH (25-34) pg MCHC (32-36) g/dL RDW Std Deviation (36.4-46.3) fL RDW Coeff of Rosa (11.5-14.5) % Plt Count (130-400) K/uL MPV (7.4-10.4) fL Sodium (136-145) mmol/L Potassium (3.5-5.1) mmol/L Chloride (98-107) mmol/L Carbon Dioxide (21-32) mmol/L Anion Gap (3-11) BUN (7-18) mg/dl Creatinine (0.6-1.2) mg/dl Est Cr Clr Drug Dosing ml/min Est GFR ( Amer) Est GFR (Non-Af Amer) BUN/Creatinine Ratio (10-20) Glucose (70-99) mg/dl POC Glucose 224 H 245 H 186 H (70-99) Calcium (8.5-10.1) mg/dl Vancomycin Trough (See Comment) mcg/ml 07/20/18 07/20/18 Range/Units 10:55 09:46 WBC (4.8-10.8) K/uL RBC (4.2-5.4) M/uL Hgb (12.0-16.0) g/dL Hct (37-47) % MCV (80-100) fL MCH (25-34) pg MCHC (32-36) g/dL RDW Std Deviation (36.4-46.3) fL RDW Coeff of Rosa (11.5-14.5) % Plt Count (130-400) K/uL MPV (7.4-10.4) fL Sodium (136-145) mmol/L Potassium (3.5-5.1) mmol/L Chloride (98-107) mmol/L Carbon Dioxide (21-32) mmol/L Anion Gap (3-11) BUN (7-18) mg/dl Creatinine (0.6-1.2) mg/dl Est Cr Clr Drug Dosing ml/min Est GFR ( Amer) Est GFR (Non-Af Amer) BUN/Creatinine Ratio (10-20) Glucose (70-99) mg/dl POC Glucose 201 H 258 H (70-99) Calcium (8.5-10.1) mg/dl Vancomycin Trough (See Comment) mcg/ml Medications Administered Current Inpatient Medications Acetaminophen (Tylenol) 650 mg PO Q4H PRN PRN Reason: pain/fever Stop: 08/17/18 01:01 Last Admin: 07/18/18 23:07 Dose: 650 mg Documented by: Hydrocodone Bitart/Acetaminophen (Dorena 5/325) 1 tab PO Q6H PRN PRN Reason: Pain Stop: 07/31/18 22:56 Albuterol (Duoneb) 3 ml NEB Q6RWA [facility] Stop: 08/18/18 14:59 Last Admin: 07/21/18 07:06 Dose: 3 ml Documented by: Azithromycin (Zithromax) 500 mg PO Q24H [facility] Stop: 07/25/18 08:59 Last Admin: 07/21/18 07:55 Dose: 500 mg Documented by: Lidocaine HCl 60 ml/Diphenhydramine HCl 150 mg/ Al Hydrox/Mg Hydrox/Simethicone 60 ml/ Glycerin 60 ml/ [employer]IFIER 1 ea 0 ml MT UD PRN PRN Reason: mouth sores Stop: 08/17/18 22:31 Last Admin: 07/20/18 17:08 Dose: 5 ml Documented by: Cyclobenzaprine HCl (Flexeril) 10 mg PO TID PRN PRN Reason: Muscle Spasm Stop: 08/16/18 22:56 Dextrose (Dextrose 50%) 25 - 50 ml IV UD PRN; Protocol PRN Reason: Hypoglycemia Protocol Stop: 08/17/18 01:01 Last Admin: 07/21/18 06:18 Dose: 25 ml Documented by: Enoxaparin Sodium (Lovenox) 40 mg SQ Q24H [facility] Stop: 08/17/18 08:59 Last Admin: 07/21/18 07:59 Dose: 40 mg Documented by: Fluoxetine HCl (Prozac) 40 mg PO QAM [facility] Stop: 08/17/18 08:59 Last Admin: 07/21/18 07:55 Dose: 40 mg Documented by: Gabapentin (Neurontin) 200 mg PO TID [facility] Stop: 08/17/18 08:59 Last Admin: 07/21/18 07:54 Dose: 200 mg Documented by: Glucagon (Glucagen) 1 mg SQ UD PRN; Protocol PRN Reason: Hypoglycemia Protocol Stop: 08/17/18 01:01 Glucose (Dex4 Glucose) 4 - 8 tabs PO UD PRN; Protocol PRN Reason: Hypoglycemia Protocol Stop: 08/17/18 01:01 Glucose (Glucose 40%) 15 - 30 gm PO UD PRN; Protocol PRN Reason: Hypoglycemia Protocol Stop: 08/17/18 01:01 Guaifenesin/Dextromethorphan (Robitussin Cough-Chest Dm) 10 ml PO Q6H PRN PRN Reason: Cough Stop: 08/18/18 09:39 Heparin Sodium (Porcine) (Heparin Sod 100 Unit/Ml Flush) 5 ml FLUSH PRN PRN PRN Reason: Flush Stop: 08/17/18 01:29 Last Admin: 07/18/18 12:29 Dose: 5 ml Documented by: Hydrochlorothiazide (Hctz) 12.5 mg PO QAM [facility] Stop: 08/17/18 08:59 Last Admin: 07/18/18 08:10 Dose: 12.5 mg Documented by: Cefepime HCl 2,000 mg/ Syringe 20 mls @ 5.5 mls/min IV Q8H [facility] Stop: 07/25/18 02:59 Last Admin: 07/21/18 02:06 Dose: 5.5 mls/min Documented by: Insulin Human Regular 250 (units/ Sodium Chloride) 250 mls @ 2.4 mls/hr IV .Q24H [facility]; Protocol Stop: 08/18/18 22:14 Last Titration: 07/21/18 06:30 Dose: 2.4 units/hr, 2.4 mls/hr Documented by: Methylprednisolone 60 mg/ (Syringe) 0.96 mls @ 1.5 mls/min IV Q12 [facility] Stop: 08/20/18 08:59 Last Admin: 07/21/18 09:13 Dose: Not Given Documented by: Insulin Aspart (Novolog Flexpen) 0 units SC PCHS [facility] Stop: 08/19/18 08:59 Last Admin: 07/21/18 07:58 Dose: 3 units Documented by: Insulin Glargine (Lantus Solostar Pen) 30 units SC BID [facility]; Protocol Stop: 08/20/18 08:59 Last Admin: 07/21/18 08:22 Dose: 30 units Documented by: Levothyroxine Sodium (Synthroid) 200 mcg PO DAILYBB [facility] Stop: 08/17/18 06:29 Last Admin: 07/21/18 06:20 Dose: 200 mcg Documented by: Levothyroxine Sodium (Synthroid) 25 mcg PO DAILYBB [facility] Stop: 08/17/18 06:29 Last Admin: 07/21/18 06:20 Dose: 25 mcg Documented by: Losartan Potassium (Cozaar) 100 mg PO QAM [facility] Stop: 08/17/18 08:59 Last Admin: 07/21/18 07:57 Dose: 100 mg Documented by: Meclizine HCl (Antivert) 25 mg PO DAILY PRN PRN Reason: Dizziness Stop: 08/16/18 22:56 Metoprolol Succinate (Toprol Xl) 25 mg PO DAILY [facility] Stop: 08/17/18 08:59 Last Admin: 07/21/18 07:51 Dose: 25 mg Documented by: Miscellaneous (Carbohydrates For Hypoglycemia) 15 - 30 gm PO UD PRN PRN Reason: Hypoglycemia Treatment Stop: 08/17/18 01:01 Miscellaneous Information (Consult Glycemic Management Pharmacy) 1 ea N/A UD PRN PRN Reason: Consult Stop: 08/18/18 14:24 Ondansetron HCl (Zofran) 4 mg PO Q6H PRN PRN Reason: Nausea Stop: 08/18/18 09:25 Last Admin: 07/19/18 11:19 Dose: 4 mg Documented by: Polyethylene Glycol (Miralax Powder Packet) 17 gm PO DAILY PRN PRN Reason: Constipation Stop: 08/17/18 01:01 Sodium Chloride ([place]ardon Nasal) 2 sprays NA Q2H PRN PRN Reason: congestion Stop: 08/17/18 11:44 Tramadol HCl (Ultram) 50 mg PO Q6H PRN PRN Reason: Pain Stop: 08/16/18 22:56 Resident Activity Tracking Resident Involvement: Resident Care Provided Care Provided: Adult Hospital Medicine (1) Sepsis Sepsis type: sepsis due to unspecified organism Qualified Code(s): A41.9 - Sepsis, unspecified organism
[2018-07-21] MEDS ORDERED: INSULIN GLARGINE SOLOSTAR 100 UNITS/ML 3 ML PEN SC SCH (09:00)
[2018-07-21] MEDS ORDERED: INSULIN GLARGINE SOLOSTAR 100 UNITS/ML 3 ML PEN SC ONE (11:00)
--- NOTE | 2018-07-21 11:10 | Pharmacy Report ---
Pharmacy Glycemic Short Note 2 - Date of Service July 21, 2018 - Glycemic Short BSG Results (Last 24 hours): 07/20/18 07/20/18 07/20/18 09:46 10:55 11:54 Glucose POC Glucose 258 H 201 H 186 H 07/20/18 07/20/18 07/20/18 12:50 14:10 14:59 Glucose POC Glucose 245 H 224 H 220 H 07/20/18 07/20/18 07/20/18 16:04 17:01 18:00 Glucose POC Glucose 204 H 173 H 201 H 07/20/18 07/20/18 07/20/18 19:01 20:03 20:57 Glucose POC Glucose 210 H 177 H 148 H 07/20/18 07/20/18 07/20/18 22:00 23:01 23:59 Glucose POC Glucose 144 H 131 H 121 H 07/21/18 07/21/18 07/21/18 01:02 02:00 03:00 Glucose POC Glucose 119 H 108 H 109 H 07/21/18 07/21/18 07/21/18 04:00 04:12 05:01 Glucose 89 POC Glucose 97 118 H 07/21/18 07/21/18 07/21/18 06:13 06:29 07:19 Glucose POC Glucose 95 143 H 144 H OUTPATIENT ANTIDIABETIC REGIMEN: * Tresiba 60-65 units SQ daily * Novolog 9 units with break/13 units with lunch/15 units with dinner + sliding scale * Metformin 1000 mg PO BID * Doses from [facility] (may 2018 visit) - of note, patient recently on DXM as out patient * A1c 7.2% 07/18/18 ASSESSMENT: 07/21 * Patient continues on insulin drip this AM * At times yesterday patient required in excess of 10 units/hr while also receiving Lantus 30 units BID * Overnight insulin requirements did decrease to 2.4-5 units/hr * Shank Archer is decreasing steroid dose 50% today (Solu-medrol 60mg IV Q 6 hrs --> 60mg IV Q 12 hrs) which should lead to some improvement in insulin sensitivity - HOWEVER these are still high doses and insulin resistance will continue above baseline * Anticipating the change in insulin requirements today will be challenging, and difficult to do safely with SQ. She did require > 300 units of insulin yesterday. The insulin drip likely provided ~200 units of insulin yesterday on top of the 60 units of Lantus. She also received ~30 units of Prandial insulin. Will base initial regimen upon an anticipated need of ~150 units per day 07/20 * Patient transferred to ICU overnight, solumedrol 60 mg IV q6 added and subsequent increase in BSGs * Started on insulin infusion, currently running at 7.1 units/hr * Continuing lantus scale BID to help assist transition off of drip * Plan to continue drip for now as steroids are being continued, will set carb ratio at 4 07/19 * Kassi is a 63 yr old T2DM female admitted for acute respiratory failure likely due to pneumonia. She has been started on Solu-medrol 60 mg IV q6hr for treatment of chemo induced interstitial lung disease. She received a total of 61 units of insulin yesterday with all BSGs above goal range. * She takes large doses of insulin as an outpatient (over 100 units per day). * Changes needed to insulin regimen: * Increase basal insulin. Kassi received a total of 40 units of Lantus yesterday (compared to 60-65 units at home). Fasting BSG from this morning was elevated, 152 mg/dL. A dose of 20 units will be given now, then BID per scale. * Tighten Novolog CF/CR and add overnight checks * If BSGs remain > 250 mg/dL despite changes, patient may require IV insulin infusion PLAN FOR INPATIENT GLYCEMIC CONTROL: * Hold outpatient oral diabetes medications * Basal insulin * Lantus 20 units x 1 * Discontinue the insulin drip 4 hrs after this dose of Lantus given (d/c drip at ~1500) * Continue Lantus SQ BID per scale: * 25 units for BSG 110-140 * 35 units for BSG 141 - 180 * 40 units for BSG >180 * Novolog SQ ACHS and at 0000 + 0400 tonight * Goal range 110-140mg/dL * Correction factor: 12mg/dL/unit * Carb ratio: 1 unit per 4 grams CHO consumed
[2018-07-21] MEDS: LIDOCAINE HCL 2% VISCOUS 60 ML, DiphenhydrAMINE Syrup 150 MG, ALUMINUM/MAGNESIUM SUSP 6... MT PRN (13:27)
[2018-07-21] MEDS ORDERED: STOP ORDER: D/C INSULIN DRIP ONE (15:00)
[2018-07-21] MEDS: INSULIN GLARGINE SOLOSTAR 100 UNITS/ML 3 ML PEN SC SCH (20:54)
[2018-07-22] MEDS ORDERED: INSULIN ASPART 100 UNITS/ML 3 ML PEN SC SCH
[2018-07-22] MEDS: INSULIN ASPART 100 UNITS/ML 3 ML PEN SC SCH ×6 (00:30→21:09)
[2018-07-22] MEDS: HEPARIN 100 UNIT/ML 5ML FLUSH FLUSH PRN ×4 (03:23→18:14)
[2018-07-22] MEDS: CEFEPIME 2,000 MG in SYRINGE 7.5 ML IV SCH ×3 (03:23→18:13)
[2018-07-22] MEDS: DEXAMETHASONE CONC 3.75 MG, NYSTATIN 30 ML, DiphenhydrAMINE Syrup 300 MG, ORA-SWEET SYR... PO PRN ×3 (04:07→18:12)
[2018-07-22] MEDS: LEVOTHYROXINE SODIUM 200 MCG TABLET PO SCH (06:05)
[2018-07-22] MEDS: LEVOTHYROXINE SODIUM 25 MCG TABLET PO SCH (06:05)
[2018-07-22] MEDS: ALBUT/IPRATROP 3MG/0.5MG NEB 3 ML VIAL NEB SCH ×3 (07:08→19:03)
[2018-07-22 07:27] LABS: BUN Creatinine Ratio 38.4 (10-20); Calcium 8.8 mg/dl (8.5-10.1); Est GFR (African American) 85.7
[2018-07-22] MEDS: METOPROLOL SUCC 25MG EXT REL TAB PO SCH (08:14)
[2018-07-22] MEDS: LOSARTAN POTASSIUM 50 MG TAB PO SCH (08:15)
[2018-07-22] MEDS: FLUOXETINE HCL 20 MG CAP PO SCH (08:15)
[2018-07-22] MEDS: GABAPENTIN 100 MG CAP PO SCH ×3 (08:15→20:05)
[2018-07-22] MEDS: AZITHROMYCIN 250 MG TAB PO SCH (08:15)
[2018-07-22] MEDS: ENOXAPARIN INJ 40 MG/0.4 ML SYR SQ SCH (08:16)
[2018-07-22] MEDS: methylPREDNISolone 60 MG in SYRINGE 0 ML IV SCH ×2 (08:17→20:04)
[2018-07-22] MEDS ORDERED: INSULIN GLARGINE SOLOSTAR 100 UNITS/ML 3 ML PEN SC SCH (09:00)
[2018-07-22] MEDS ORDERED: NURSING DECISION MEDICATION ONE (11:57)
--- NOTE | 2018-07-22 15:09 | Pharmacy Report ---
Pharmacy Glycemic Short Note 2 - Date of Service July 22, 2018 - Glycemic Short BSG Results (Last 24 hours): 07/21/18 07/21/18 07/21/18 14:19 15:29 20:09 Glucose POC Glucose 221 H 226 H 339 H* 07/22/18 07/22/18 07/22/18 00:10 03:59 06:10 Glucose 95 POC Glucose 283 H 166 H 07/22/18 07/22/18 07:49 11:57 Glucose POC Glucose 126 H 226 H OUTPATIENT ANTIDIABETIC REGIMEN: * Tresiba 60-65 units SQ daily * Novolog 9 units with break/13 units with lunch/15 units with dinner + sliding scale * Metformin 1000 mg PO BID * Doses from [facility] (may 2018 visit) - of note, patient recently on DXM as out patient * A1c 7.2% 07/18/18 ASSESSMENT: 07/22 * Patient was transitioned off the drip yesterday, received 156 units SQ only yesterday * BSGs elevated last evening but came down nicely this AM * Patient remains on IV solumedrol 60mg IV q12, which will still likely contribute to insulin resistance * Patient is ordered a diet * 35 units of lantus was given this AM and I will place a scale on this evening- >true needs still difficult to determine * Lunch BSG was somewhat elevated and I did tighten CR slightly 07/21 * Patient continues on insulin drip this AM * At times yesterday patient required in excess of 10 units/hr while also receiving Lantus 30 units BID * Overnight insulin requirements did decrease to 2.4-5 units/hr * Retail Cashier is decreasing steroid dose 50% today (Solu-medrol 60mg IV Q 6 hrs --> 60mg IV Q 12 hrs) which should lead to some improvement in insulin sensitivity - HOWEVER these are still high doses and insulin resistance will continue above baseline * Anticipating the change in insulin requirements today will be challenging, and difficult to do safely with SQ. She did require > 300 units of insulin yesterday. The insulin drip likely provided ~200 units of insulin yesterday on top of the 60 units of Lantus. She also received ~30 units of Prandial insulin. Will base initial regimen upon an anticipated need of ~150 units per day 07/20 * Patient transferred to ICU overnight, solumedrol 60 mg IV q6 added and subsequent increase in BSGs * Started on insulin infusion, currently running at 7.1 units/hr * Continuing lantus scale BID to help assist transition off of drip * Plan to continue drip for now as steroids are being continued, will set carb ratio at 4 07/19 * Kassi is a 63 yr old T2DM female admitted for acute respiratory failure likely due to pneumonia. She has been started on Solu-medrol 60 mg IV q6hr for treatment of chemo induced interstitial lung disease. She received a total of 61 units of insulin yesterday with all BSGs above goal range. * She takes large doses of insulin as an outpatient (over 100 units per day). * Changes needed to insulin regimen: * Increase basal insulin. Kassi received a total of 40 units of Lantus yesterday (compared to 60-65 units at home). Fasting BSG from this morning was elevated, 152 mg/dL. A dose of 20 units will be given now, then BID per scale. * Tighten Novolog CF/CR and add overnight checks * If BSGs remain > 250 mg/dL despite changes, patient may require IV insulin infusion PLAN FOR INPATIENT GLYCEMIC CONTROL: * Hold outpatient oral diabetes medications * Basal insulin * Lantus 35 units X1 this morning * Continue Lantus SQ BID per scale: * 30 units for BSG 120 or less * 35 units for BSG 121 - 200 * 40 units for BSG >200 * Novolog SQ ACHS and at 0000 + 0400 tonight * Goal range 110-140mg/dL * Correction factor: 10 mg/dL/unit * Carb ratio: 1 unit per 3 grams CHO consumed
--- NOTE | 2018-07-22 16:46 | Hospitalist Progress Note ---
Date of Service July 22, 2018 Assessment & Plan (1) Acute respiratory failure with hypoxia: The evening of 07/19, patient went into hypoxemic respiratory failure, requiring high flow nasal cannula. CXR showed diffuse opacities, concerning for multifocal pneumonia or drug-induced lung injury. - By 07/20, slowly weaning O2 and improved shortness of breath. - Echo on 07/20 showed EF 65-70%; low likelihood of heart failure playing a role - Vanc stopped on 07/21 for negative MRSA - Continue cefepime/azithromycin - Discussed with pulm - finish azithromycin tomorrow, then finish on Augmentin - Continue Solumedrol for treatment of chemo-induced interstitial lung disease; tapered to Q12h on 07/21; will do 2-week taper per pulm (2) Multifocal pneumonia: CT chest on 07/17 showed multifocal PNA. - Continue cefepime/Azithromycin for empiric coverage - Robitussin DM prn cough. - Duonebs q6hr scheduled while awake. (3) Sepsis: Febrile, tachycardic with concern for pulmonary source. Lactic acid level was 2.2. - Received IV fluids -- discontinued for concern for CHF. - Treatment of pneumonia as noted. - By 07/21, sepsis had resolved. (4) Breast cancer, right breast: Currently receiving Taxol chemotherapy weekly. - Will follow up outpatient with [facility] oncology (5) Anemia: In setting of chemotherapy. Hgb was 8.4 at admission, received 2 units pRBCs with improvement. - Hgb stable at 10.0 on 07/22; monitor CBC qAM. (6) DM II (diabetes mellitus, type II), controlled: Hgb A1C was 7.2% in 06/2018. - Pharmacy consulted for glycemic management in setting of IV steroids. (7) Hypothyroidism: - Continue Synthroid 225 mcg daily. - Most recent TSH was 3.6 in Feb 2018. (8) Benign essential HTN: BP presently 100/60. - Continue losartan & metoprolol as prescribed. - Holding home HCTZ in setting of dehydration. (9) Depression: Normal affect on exam today. - Continue Prozac as prescribed. (10) Back pain: - Continue Gabapentin as prescribed. (11) DVT prophylaxis: - Lovenox q24hr. Subjective Doing well today. No shortness of breath. Minimal cough. Review of Systems Review of Systems: All systems reviewed & are unremarkable except as noted in HPI & below Respiratory: no wheezing Gastrointestinal: no abdominal pain, no nausea and no vomiting Physical Exam Constitutional: WD/WN, vitals as above + morbidly obese Eyes: PERRL, conjunctivae normal, anicteric sclerae Neck: normal visual inspection Respiratory: normal respiratory effort; no respiratory distress and no labored breathing Auscultation: + crackles (bibasilar) Cardiovascular: Rate/Rhythm: regular rate and regular rhythm Heart Sounds: + murmur (HESHAM) Chest (Breasts): Breast: + abnormal inspection of breast (s/p bilateral mastectomy) Gastrointestinal (Abdomen): normal bowel sounds, soft, nontender, no hepatosplenomegaly Skin: no rashes, warm and dry Results & Data Vital Signs (Past 12 Hours) Vital Signs Temp Pulse Resp BP Pulse Ox 07/22/18 14:48 36.3 C L 95 H 20 102/60 95 07/22/18 14:02 73 16 96 07/22/18 07:16 36.4 C L 75 20 130/75 96 07/22/18 07:10 78 96 (1) Sepsis Sepsis type: sepsis due to unspecified organism Qualified Code(s): A41.9 - Sepsis, unspecified organism
[2018-07-22] MEDS: INSULIN GLARGINE SOLOSTAR 100 UNITS/ML 3 ML PEN SC SCH (21:30)
[2018-07-23] MEDS: CEFEPIME 2,000 MG in SYRINGE 7.5 ML IV SCH ×2 (03:12→12:44)
[2018-07-23] MEDS ORDERED: INSULIN ASPART 100 UNITS/ML 3 ML PEN SC SCH ×2 (03:25)
[2018-07-23] MEDS: LEVOTHYROXINE SODIUM 25 MCG TABLET PO SCH (05:56)
[2018-07-23] MEDS: LEVOTHYROXINE SODIUM 200 MCG TABLET PO SCH (05:56)
[2018-07-23] MEDS: ALBUT/IPRATROP 3MG/0.5MG NEB 3 ML VIAL NEB SCH ×2 (07:01→14:14)
[2018-07-23] MEDS: ENOXAPARIN INJ 40 MG/0.4 ML SYR SQ SCH (09:02)
[2018-07-23] MEDS: GABAPENTIN 100 MG CAP PO SCH ×2 (09:02→14:06)
[2018-07-23] MEDS: LOSARTAN POTASSIUM 50 MG TAB PO SCH (09:02)
[2018-07-23] MEDS: METOPROLOL SUCC 25MG EXT REL TAB PO SCH (09:02)
[2018-07-23] MEDS: methylPREDNISolone 60 MG in SYRINGE 0 ML IV SCH (09:03)
[2018-07-23] MEDS: FLUOXETINE HCL 20 MG CAP PO SCH (09:03)
[2018-07-23] MEDS: AZITHROMYCIN 250 MG TAB PO SCH (09:05)
[2018-07-23] MEDS: INSULIN ASPART 100 UNITS/ML 3 ML PEN SC SCH ×3 (09:06→17:38)
[2018-07-23] MEDS ORDERED: INSULIN GLARGINE SOLOSTAR 100 UNITS/ML 3 ML PEN SC SCH (09:30)
--- NOTE | 2018-07-23 15:43 | Pharmacy Report ---
Pharmacy Glycemic Short Note 2 - Date of Service July 23, 2018 - Glycemic Short BSG Results (Last 24 hours): 07/22/18 07/22/18 07/23/18 16:47 19:48 00:32 POC Glucose 278 H 299 H 391 H* 07/23/18 07/23/18 07/23/18 03:20 07:39 11:48 POC Glucose 355 H* 142 H 217 H OUTPATIENT ANTIDIABETIC REGIMEN: * Tresiba 60-65 units SQ daily * Novolog 9 units with break/13 units with lunch/15 units with dinner + sliding scale * Metformin 1000 mg PO BID * Doses from [facility] (may 2018 visit) - of note, patient recently on DXM as out patient * A1c 7.2% 07/18/18 ASSESSMENT: 07/23 * Total 173 units of insulin received yesterday; 75 units of this was Lantus. * Fasting BSG at goal, but post prandial and overnight BSGs were high. * Lantus AM dose increased; Novolog carb ratio tightened further. Patient continues on Solumedrol 60 mg IV q12h which is contributing to hyperglycemia. 07/22 * Patient was transitioned off the drip yesterday, received 156 units SQ only yesterday * BSGs elevated last evening but came down nicely this AM * Patient remains on IV solumedrol 60mg IV q12, which will still likely contribute to insulin resistance * Patient is ordered a diet * 35 units of lantus was given this AM and I will place a scale on this evening- >true needs still difficult to determine * Lunch BSG was somewhat elevated and I did tighten CR slightly 07/21 * Patient continues on insulin drip this AM * At times yesterday patient required in excess of 10 units/hr while also receiving Lantus 30 units BID * Overnight insulin requirements did decrease to 2.4-5 units/hr * Ethics Manager is decreasing steroid dose 50% today (Solu-medrol 60mg IV Q 6 hrs --> 60mg IV Q 12 hrs) which should lead to some improvement in insulin sensitivity - HOWEVER these are still high doses and insulin resistance will continue above baseline * Anticipating the change in insulin requirements today will be challenging, and difficult to do safely with SQ. She did require > 300 units of insulin yesterday. The insulin drip likely provided ~200 units of insulin yesterday on top of the 60 units of Lantus. She also received ~30 units of Prandial insulin. Will base initial regimen upon an anticipated need of ~150 units per day 07/20 * Patient transferred to ICU overnight, solumedrol 60 mg IV q6 added and subsequent increase in BSGs * Started on insulin infusion, currently running at 7.1 units/hr * Continuing lantus scale BID to help assist transition off of drip * Plan to continue drip for now as steroids are being continued, will set carb ratio at 4 07/19 * Kassi is a 63 yr old T2DM female admitted for acute respiratory failure likely due to pneumonia. She has been started on Solu-medrol 60 mg IV q6hr for treatment of chemo induced interstitial lung disease. She received a total of 61 units of insulin yesterday with all BSGs above goal range. * She takes large doses of insulin as an outpatient (over 100 units per day). * Changes needed to insulin regimen: * Increase basal insulin. Kassi received a total of 40 units of Lantus yesterday (compared to 60-65 units at home). Fasting BSG from this morning was elevated, 152 mg/dL. A dose of 20 units will be given now, then BID per scale. * Tighten Novolog CF/CR and add overnight checks * If BSGs remain > 250 mg/dL despite changes, patient may require IV insulin infusion PLAN FOR INPATIENT GLYCEMIC CONTROL: * Hold outpatient oral diabetes medications * Basal insulin * Lantus 45 units X1 this morning * Continue Lantus SQ BID per scale: * 30 units for BSG 120 or less * 35 units for BSG 121 - 200 * 40 units for BSG >200 * Novolog SQ ACHS and at 0000 + 0400 tonight * Goal range 110-140mg/dL * Correction factor: 10 mg/dL/unit * Carb ratio: 1 unit per 2.5 grams CHO consumed
--- NOTE | 2018-07-23 18:16 | Discharge Summary ---
Date of Service July 23, 2018 Admission HPI Per Admitting Provider Patient is a pleasant 63yoF PMH metastatic breast cancer, HTN, Depression, T2DM, venous insufficiency, hypothyroidism who presented to the ER with acute dyspnea. She notes that about 2-3 weeks ago, she started to have a cough. She was given doxycycline for this and completed the course, but continued to have cough with clear/white phlegm. She reports that she has also been feeling quite fatigued in the past 5 days especially. She notes her daughter checks on her regularly and today felt that she was so fatigued and dyspneic she couldn't get up to answer the door, and recommended she come to the ER. On arrival to the ER, patient was hypoxic, tachycardic, tachypneic, and febrile, thus meeting SIRS sepsis criteria. Labs significant for WBC 2.41, Lactate 2.2. Hgb/Hct 8.4/25. ANC calculated at 1499 cells/uL. She was given albuterol/cefepime/dapto/levaquin/benadryl/40 lasix in the ER. 2U PRBCs were initiated, and CXR indicated fluid overload therefore only 1L bolus NSS was given Last chemo was on 07/07/18. She did not receive chemo on 07/14 due to low WBC. Follows with [facility]. Principal Diagnosis Pneumonia vs. pneumonitis from chemotherapy Discharge Exam Constitutional WD/WN, vitals as above + morbidly obese Eyes PERRL, conjunctivae normal, anicteric sclerae Neck normal visual inspection Respiratory normal respiratory effort; no respiratory distress and no labored breathing Auscultation: + crackles (bibasilar) Cardiovascular Rate/Rhythm: regular rate and regular rhythm Heart Sounds: + murmur (HESHAM) Extremities: + pedal edema Chest (Breasts) Breast: + abnormal inspection of breast (s/p bilateral mastectomy) Gastrointestinal (Abdomen) normal bowel sounds, soft, nontender, no hepatosplenomegaly Skin no rashes, warm and dry Discharge Data Allergies Allergy/AdvReac Type Severity Reaction Status Date / Time adhesive Allergy Unknown "BLISTERS Verified 07/17/18 20:27 AND PULLS MY SKIN OFF" codeine AdvReac Mild Nausea Verified 07/17/18 20:27 erythromycin base AdvReac Unknown STOMACH Verified 07/17/18 20:27 PAIN indomethacin AdvReac Unknown "THINS Verified 07/17/18 20:27 BLOOD OUT TOO MUCH" valacyclovir [From Valtrex] AdvReac Unknown Palpitation Verified 07/17/18 20:27 s Consultations 07/17/18 20:15 ED Decision to Admit Stat 07/19/18 12:57 Consult Buyer Liaison Routine Ordered Studies 07/17/18 17:18 CT angio chest PE protocol Stat Hospital Course (1) Acute respiratory failure with hypoxia: The evening of 07/19, patient went into hypoxemic respiratory failure, requiring high flow nasal cannula. CXR showed diffuse opacities, concerning for multifocal pneumonia or drug-induced lung injury. - By 07/20, slowly weaning O2 and improved shortness of breath. - Echo on 07/20 showed EF 65-70%; low likelihood of heart failure playing a role - Vanc stopped on 07/21 for negative MRSA - Continue cefepime/azithromycin - Discussed with pulm - finished azithromycin while inpatient. Discharged on Augmentin for another 5 days. - Continue Solumedrol for treatment of chemo-induced interstitial lung disease; tapered to Q12h on 07/21; will do 2-week taper per pulm - Discharged with nebulizer and DuoNebs (2) Multifocal pneumonia: CT chest on 07/17 showed multifocal PNA. - Continued cefepime/Azithromycin for empiric coverage - See above for abx plan. - Robitussin DM prn cough. - Duonebs q6hr scheduled while awake. (3) Sepsis: Febrile, tachycardic with concern for pulmonary source. Lactic acid level was 2.2. - Received IV fluids -- discontinued for concern for CHF. - Treatment of pneumonia as noted. - By 07/21, sepsis had resolved. (4) Breast cancer, right breast: Currently receiving Taxol chemotherapy weekly. - Will follow up outpatient with [facility] oncology (5) Anemia: In setting of chemotherapy. Hgb was 8.4 at admission, received 2 units pRBCs with improvement. - Hgb stable at 10.0 on 07/22; monitor CBC qAM. (6) DM II (diabetes mellitus, type II), controlled: Hgb A1C was 7.2% in 06/2018. - Pharmacy consulted for glycemic management in setting of IV steroids. (7) Hypothyroidism: - Continue Synthroid 225 mcg daily. - Most recent TSH was 3.6 in Feb 2018. (8) Benign essential HTN: BP presently 100/60. - Continue losartan & metoprolol as prescribed. - Holding home HCTZ in setting of dehydration -> Restarted on discharge as her volume status was stable. (9) Depression: Normal affect on exam today. - Continue Prozac as prescribed. (10) Back pain: - Continue Gabapentin as prescribed. (11) DVT prophylaxis: - Lovenox q24hr. Total Time Total Time Spent Total Time Spent (In Minutes): 35 Total Time Includes: Examination of the Patient, Discharge Planning and Communication With Other Providers Discharge Plan Discharge Items Patient Disposition: Home - Home Health Services Reason For Visit: PNEUMONIA,SEPSIS Discharge Diagnosis: Pneumonia and possible chemotherapy-related lung inflammation Discharge Goals: Decrease discomfort, Diagnostic testing and Specific goals Activity: Resume your previous activity Non-emergency contact: Primary Care Provider and Oncologist Call non-emergency contact if: your symptoms worsen and your pain is not controlled Follow-up/Referrals: Yesica Disla MD [Primary Care Provider] - 07/27/18 10:00 am (Please, follow up at [facility] with Dr. Disla on FridayJuly 27 at 10:00 am. *If you need to change this appointment, call the office at [phone].) Marino Gama MD [Physician] - 07/28/18 10:15 am (Please, follow up with Dr. Gama on FridayJuly 28 at 10:155 am. *If you need to change this appointment, call the office at [phone].) Diet: Regular Addtl Provider Instructions: Ms. Latif, You were admitted to the hospital with trouble breathing. We believe you had a pneumonia and possibly inflammation of your lungs from the chemotherapy. We are giving you antibiotics for 5 more days, and a 2-week steroid taper. Take your first antibiotic tomorrow morning and take it 2 times per day every day until it is gone. Take prednisone 50 mg (5 tablets) tomorrow and Friday, then take 40 mg (4 tabl ets) the next two days, then 3 tablets for two days, then 2 tablets for two days, then 1 tablet for two days, then stop. During the days you take your dexamethasone, do not take the prednisone, but picker and packer where you left off. Finally, take your DuoNebs (nebulizer treatment) up to every 6 hours. As you wean off the steroids, hopefully you will need to use the nebulizer less often. If you are still needing it every 6 hours as you finish the antibiotics, please call your PCP or oncologist. Prescriptions: New amoxicillin-pot clavulanate [Augmentin] 875-125 mg tablet 1 tab PO BID Qty: 10 RF: 0 prednisone 10 mg tablet 50 mg PO DAILY Qty: 30 RF: 0 ipratropium-albuterol 0.5 mg-3 mg(2.5 mg base)/3 mL solution for nebulization 3 ml INH Q6H PRN (Reason: wheezing) Qty: 180 RF: 0 Continued [id number] [krill oil] [id number],[id number] mg Capsule 2 cap PO QAM RF: 0 cholecalciferol (vitamin D3) [Vitamin D3] 2,000 unit Capsule 2,000 unit PO DAILY RF: 0 ondansetron HCl [Zofran] 4 mg Tablet 4 mg PO TID PRN (Reason: Nausea) RF: 0 metoprolol succinate 25 mg tablet extended release 24 hr 25 mg PO DAILY RF: 0 Tresiba FlexTouch U-200 200 unit/mL (3 mL) insulin pen subcut DAILY RF: 0 tramadol 50 mg tablet PO Q6H PRN (Reason: Pain) RF: 0 dexamethasone 4 mg tablet PO DAILY RF: 0 fluoxetine 40 mg Capsule 40 mg PO QAM RF: 0 cyclobenzaprine 10 mg Tablet 10 mg PO TID PRN (Reason: Muscle Spasm) RF: 0 hydrocodone-acetaminophen 5-325 mg Tablet PO UNKNOWN PRN (Reason: Pain) RF: 0 aspirin [Aspir-81] 81 mg Tablet,Delayed Release (Dr/Ec) 81 mg PO QAM RF: 0 meclizine 25 mg Tablet 25 mg PO DAILY PRN (Reason: Dizziness) RF: 0 Novolog U-100 Insulin aspart 100 unit/mL Solution 9 unit SUBCUT QAM RF: 0 Novolog U-100 Insulin aspart 100 unit/mL Solution 13 unit SUBCUT 1200 RF: 0 Novolog U-100 Insulin aspart 100 unit/mL Solution 15 unit SUBCUT PM RF: 0 metformin 1,000 mg Tablet 1,000 mg PO BID RF: 0 levothyroxine 200 mcg Tablet 225 mcg PO QAM RF: 0 gabapentin 100 mg Capsule 200 mg PO TID RF: 0 losartan-hydrochlorothiazide 100-12.5 mg Tablet 1 tab PO QAM RF: 0 vitamin G73-cyete acid 500-400 mcg Tablet 1 tab PO QAM RF: 0 Stand-Alone Forms: [facility] Discharge Orders: Discharge Order (Routine); Ordered 07/23/18 Ordered By: Chris Ellis Admission Data Admit Date/Time: 07/17/18 23:52 Attending Provider: Chris Ellis Admit Provider: Kim Bradley Primary Care Provider: Yesica Disla Other Providers: Devin Hidalgo ; Elma England Service: Medical Other Interventions: Discharge Summary Assessment (RN) Last Done: 07/23/18 17:48
[2018-07-24] MEDS ORDERED: INSULIN ASPART 100 UNITS/ML 3 ML PEN SC SCH
== END 2018-07-23 18:00 | disposition home health service (06) | DRG 871 ==
LOC: ED 16:55 → 4E 23:52 → SUATTDRO 23:52 → 4E 07-18 00:23 → 2E 07-19 15:03 → 1E 07-19 17:16 → 4W 07-21 15:55

== ENCOUNTER 2018-09-02 22:53 | Inpatient (IN) ==
[2018-09-02] MEDS ORDERED: ONDANSETRON INJ 2 MG/ML 2 ML VIAL IV STA (23:17)
[2018-09-02] MEDS ORDERED: SODIUM CHLORIDE 0.9% 250 ML IV ONE (23:19)
[2018-09-02] MEDS ORDERED: SODIUM CHLORIDE 0.9% 1000ML 1,000 ML IV SCH (23:30)
[2018-09-03 00:24] LABS: Basophils # (auto) 0.01 K/uL (0-0.2); Basophils % (auto) 0.1 %; Hematocrit (blood only) 29.6 % (37-47); Hemoglobin 10.3 g/dL (12.0-16.0); Immature Granulocytes # (auto) 0.03 K/uL (0.00-0.02); Immature Granulocytes % (auto) 0.4 %; Lymphocytes # (auto) 0.37 K/uL (1.2-3.4); Lymphocytes % (auto) 5.4 %; Mean Corpuscular Hgb Conc 34.8 g/dL (32-36); Mean Corpuscular Volume 89.4 fL (80-100); Mean Platelet Volume 8.7 fL (7.4-10.4); Monocytes # (auto) 0.34 K/uL (0.11-0.59); Neutrophils # (auto) 6.07 K/uL (1.4-6.5); Neutrophils % (auto) 89.1 %; Platelet Count 104 K/uL (130-400); RDW Coefficient of Variation 16.3 % (11.5-14.5); RDW Standard Deviation 53.4 fL (36.4-46.3); Red Blood Count 3.31 M/uL (4.2-5.4); White Blood Count 6.82 K/uL (4.8-10.8)
[2018-09-03 00:44] LABS: Albumin Level 2.8 gm/dl (3.4-5.0); BUN Creatinine Ratio 10.7 (10-20); Calcium 8.2 mg/dl (8.5-10.1); Creatinine Clr Calc Pharmacy 68.5 ml/min; Est GFR (African American) 72.2; Est GFR (Non-African American) 62.3; Magnesium 1.8 mg/dl (1.8-2.4); Potassium 2.9 mmol/L (3.5-5.1)
[2018-09-03 00:46] LABS: Albumin Globulin Ratio 0.8 (0.9-2); Bilirubin,Total 1.3 mg/dl (0.2-1); Globulin 3.3 gm/dl (2.5-4.0); Total Protein 6.1 gm/dl (6.4-8.2)
[2018-09-03] MEDS ORDERED: POTASSIUM CHLORIDE / WTR 10 MEQ/100 ML PLCT IV ONE (01:04)
[2018-09-03] MEDS ORDERED: FAMOTIDINE 20MG/5ML IV PUSH IV STA (02:37)
[2018-09-03] MEDS ORDERED: ACETAMINOPHEN 1000 MG/100 ML IV IV STA (02:51)
[2018-09-03] MEDS ORDERED: SODIUM CHLORIDE 0.9% 1000ML 1,000 ML IV ONE (02:53)
[2018-09-03] MEDS ORDERED: ONDANSETRON INJ 2 MG/ML 2 ML VIAL IV STA (02:54)
[2018-09-03] MEDS ORDERED: VANCOMYCIN CONSULT ACTIVE PRN ×2 (02:55→05:49)
[2018-09-03] MEDS ORDERED: PIPERACILLIN/TAZOBACTAM 4.5 GM/120 ML BAG IV ONE (02:55)
[2018-09-03] MEDS ORDERED: VANCOMYCIN HCL 2,750 MG in SODIUM CHLORIDE 0.9% 500 ML IV ONE (02:55)
[2018-09-03] MEDS ORDERED: PIPERACILL/TAZOBAC CONSULT ACTIVE PRN ×2 (02:55→05:49)
[2018-09-03] MEDS ORDERED: MECLIZINE HCL 25 MG TAB PO PRN (03:48)
[2018-09-03] MEDS ORDERED: ALBUT/IPRATROP 3MG/0.5MG NEB 3 ML VIAL INH PRN (03:48)
[2018-09-03] MEDS ORDERED: methylPREDNISolone 125 MG/2 ML VIAL IV STA (03:50)
[2018-09-03] MEDS ORDERED: ALBUT/IPRATROP 3MG/0.5MG NEB 3 ML VIAL NEB STA (03:50)
[2018-09-03] MEDS ORDERED: DOXYCYCLINE HYCLATE 100 MG CAP PO STA (03:50)
--- NOTE | 2018-09-03 04:08 | History & Physical Report ---
Date of Service September 03, 2018 Assessment & Plan (1) Vomiting: Patient is a pleasant 63yo F PMH Breast cancer, T2DM, Anemia, Hypothyroid, HTN, Depression who presented 09/02/18 with nausea, vomiting, "searching for words" and improper balance issues. Vomiting/mild cough/General Malaise in setting of cancer patient -Difficult to ascertain source at this point -Monitor symptoms and vitals, do not feel this is sepsis at this time -Will start on broad-spectrum abx as workup is complete (empiric with automatic stop in 48 hrs) -AM lactate. -Awaiting CT and CXR -Blood cultures pending -Consider UA however pt asymptomatic and has already been started on abx -Zofran for nausea prn -IVF with NSS @125 Cough -Duonebs q4 prn -Pt received 125 solumedrol in ED Hypokalemia -Supplemented in ER -Monitor AM labs and replete further T2DM -Last a1c 7.2 in 07/10 -ISS initiated, adjust prn HTN -Cont losartan/HCTZ and metoprolol Breast cancer--ER positive -s/p bilateral mastectomy -Last chemo on 06/29/18 (taxol), no longer receiving chemo -Getting set up for radiation in the coming weeks -Follows with [facility] Anemia -Chronic, stable. Monitor Back pain -Continue gabapentin Depression -Normal affect and mood at this time -Continue fluoxetine Hypothyroidism -Cont 225mcg levothyroxine daily Code: Full Dispo: med/surg admit DVTP: lovenox q24 (2) Hypokalemia: (3) Malignant neoplasm of upper-outer quadrant of right breast in female, estrogen receptor positive: (4) Anemia: (5) Venous insufficiency (chronic) (peripheral): (6) Depression: (7) Hypothyroidism: (8) Back pain: (9) Benign essential HTN: (10) DM II (diabetes mellitus, type II), controlled: History of Present Illness Chief Complaint: Nausea, vomiting, generally unwell Primary Care Provider: Yesica Disla MD Patient is a pleasant 63yo F PMH Breast cancer, T2DM, Anemia, Hypothyroid, HTN, Depression who presented tonight with nausea, vomiting, "searching for words" and improper balance issues. She notes she has been feeling generally unwell in the past few days with nausea and yesterday threw up orange vomit despite no orange-containing foods being consumed (she does report she has been eating a lot of tomatoes, however). She notes that as she has been feeling unwell, her balance has been off (no falls) and she sometimes finds it difficult to think of words she wants to say. She reports fevers and chills and her daughter noted a subjective fever this morning. Patient recently admitted for pneumonia and sepsis about 6 weeks ago. She notes her cough was doing better but has recently started to come back with yellowish phlegm. Reports some diarrhea and abdominal discomfort. H/O cholecystectomy, no h/o ulcers. Chronic LE pain due to venous insufficiency. Denies urinary symptoms. Patient last treated with chemo on June 29 2018. They have stopped treating with chemo due to pt symptoms and concern for chemo-induced lung damage. She is setting up radiation treatment at this time. She is unsure of her next PET scan In the ER, she was found to be hypokalemic, hyponatremic, hypertensive, tachycardic. WBC was normal, chronic anemia. Lactate ordered after original lab draw and as patient is difficult stick, were unable to attain. Urine sample not obtained. She was afebrile on arrival. Head CT did not reveal any acute findings, but did note some mastoiditis, which may explain balance issues. RLE USS did not reveal DVT. At time of note, she is awaiting CT abdomen, CXR. She was started on broad-spectrum antibiotics, given 1 dose of doxy, 125 solumedrol with duoneb, given a K-rider and IV tylenol. Allergies Allergy/AdvReac Type Severity Reaction Status Date / Time adhesive Allergy Unknown "BLISTERS Verified 09/03/18 00:31 AND PULLS MY SKIN OFF" codeine AdvReac Mild Nausea Verified 09/03/18 00:31 erythromycin base AdvReac Unknown STOMACH Verified 09/03/18 00:31 PAIN indomethacin AdvReac Unknown "THINS Verified 09/03/18 00:31 BLOOD OUT TOO MUCH" valacyclovir [From Valtrex] AdvReac Unknown Palpitation Verified 09/03/18 00:31 s Home Medications Home Medications Medication Instructions Recorded Confirmed Type aspirin [Aspir-81] 81 mg PO QAM 01/15/18 09/03/18 History meclizine 25 mg PO DAILY PRN 01/15/18 09/03/18 History cholecalciferol (vitamin D3) 2,000 unit PO DAILY 02/23/18 09/03/18 History [Vitamin D3] cyanocobalamin (vit B-12) 1,000 0 mcg PO .TAKE 1 TABLET DAILY tab 08/30/18 09/03/18 History mcg tablet fluoxetine 40 mg capsule 40 mg PO QAM #90 cap 08/30/18 09/03/18 Rx gabapentin 100 mg capsule 200 mg PO TID #180 cap 08/30/18 09/03/18 Rx insulin aspart (U-100) 100 unit/mL See Rx Instructions SQ TID #15 ml 08/30/18 09/03/18 Rx (3 mL) subcutaneous pen ipratropium-albuterol 0.5 mg-3 3 ml INH Q4H PRN #180 ml 08/30/18 09/03/18 Rx mg(2.5 mg base)/3 mL nebulization soln levothyroxine 25 mcg tablet 25 mcg PO DAILY #30 tab 08/30/18 09/03/18 Rx losartan 100 1 tab PO DAILY #30 tab 08/30/18 09/03/18 Rx mg-hydrochlorothiazide 25 mg tablet metformin 1,000 mg tablet 1,000 mg PO BID #60 tab 08/30/18 09/03/18 Rx metoprolol succinate ER 25 mg 25 mg PO DAILY #30 tab 08/30/18 09/03/18 Rx tablet,extended release 24 hr omega-3 acid ethyl esters 1 gram 2 g PO DAILY cap 08/30/18 09/03/18 History capsule insulin degludec (U-200) 200 68 units SUBCUT DAILY ml 09/01/18 09/03/18 History unit/mL (3 mL) subcutaneous pen levothyroxine 200 mcg tablet 200 mcg PO QAM tab 09/01/18 09/03/18 History Past Med/Surg History Medical History Pneumonia (Acute) hospitalization in June 2018 Morbid obesity (Acute) Anxiety PANIC ATTACKS Cancer BREAST CANCER-RIGHT SIDE Degenerative disc disease Depression Diabetes mellitus, type 2 INSULIN/ORAL MEDS- Diabetes mellitus, type 2 Fatty liver GERD (gastroesophageal reflux disease) History of recent steroid use Hx of breast cancer HX OF BILATERAL MASTECTOMY NOV 2017. 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 DO NOT USE RIGHT ARM History of tonsillectomy Family History Mother Family history of diabetes mellitus Heart disease Hypertension Father , age 57 Heart disease Hodgkin disease Sister Hypertension Daughter Colonic polyp Daughter Appendiceal carcinoid tumor had surgery age 22 / no other treatment Abnormal breast exam, Onset Age: 31 mammogram scheduled for 09-18-18 spots , 1 in each breast Aunt Gallbladder cancer, carcinoma Family/Other Breast cancer cousin Social History Preferred Language: Ivorian Communication Ability: Effective Visual Impairment: No Limitations Hearing Ability: Normal Beliefs That Will Affect Care: None marital status: Current Living Situation: Spouse current occupational status: retired 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 Feels Safe at Home: Yes Smoking Status: Former smoker Tobacco Type: cigarettes Age Started Using Tobacco: 19 packs per day: 1.5 Cigarettes Per Day: HX OF 1.5 PPD X 10 YEARS (STARTED OUT AT ABOUT 1/2 PPD) Second Hand Exposure: Yes Hx Alcohol Use: Yes Alcohol type: hard liquor Alcohol Intake Frequency Comment: drinks socially Hx Substance Use: No Review of Systems Review of Systems: All systems reviewed & are unremarkable except as noted in HPI & below Constitutional: + chills and + malaise; no fever Ear, Nose, Mouth, Throat: + dry mouth Respiratory: + cough and + change in sputum Cardiovascular: + lightheadedness, + edema and + calf pain (chronic); no chest pain and no radiating jaw, neck or arm pain Gastrointestinal: + nausea, + vomiting and + diarrhea/loose stools; no hematemesis, no constipation and no blood in stools Genitourinary: no dysuria, no urinary frequency, no urinary hesitancy, no hematuria and no flank pain Musculoskeletal: + back pain Neurologic: + unsteadiness and + abnormal speech Physical Exam Constitutional: WD/WN, vitals as above + morbidly obese, cooperative and comfortable; no altered mental status and not in distress Eyes: PERRL, conjunctivae normal, anicteric sclerae ENMT: Mouth: + dry oral mucous membranes Neck: normal visual inspection Respiratory: normal respiratory effort, lungs clear to auscultation Cardiovascular: Rate/Rhythm: regular rate and regular rhythm Vessels: normal peripheral pulses Extremities: + calf tenderness (chronic venous insufficiency) and + vascular access device (anterior chest wall) Gastrointestinal (Abdomen): Inspection/Auscultation: + abdomen distended Percussion/Palpation: + abdomen tender (epigastric) and abdomen soft Skin: no rashes, warm and dry Neurologic: PERRL, EOMI, accommodation nl, no face palsy, no dysarthria Speech / Cognition: normal speech Motor/Sensory: no tremor Psychiatric: A+Ox3, euthymic affect Results & Data Vital Signs (Past 12 Hours) Vital Signs Temp Pulse Resp BP Pulse Ox 09/03/18 03:02 117 H 16 09/03/18 03:00 116 H 21 167/79 H 97 09/03/18 02:59 116 H 23 162/99 H 98 09/03/18 02:52 38.9 C H 09/03/18 02:30 110 H 27 H 97 09/03/18 02:01 108 H 23 152/69 H 98 09/03/18 02:00 113 H 28 H 97 09/03/18 01:38 118 H 21 09/03/18 01:00 105 H 23 138/82 93 09/03/18 00:36 113 H 20 09/03/18 00:00 106 H 22 163/81 H 94 09/02/18 23:30 108 H 20 97 09/02/18 23:17 96 09/02/18 23:06 96 09/02/18 23:04 110 H 28 H 96 09/02/18 23:02 110 H 17 152/101 H 97 09/02/18 22:40 37 C 109 H 20 152/101 H 96 Laboratory Results 09/03/18 09/03/18 09/03/18 Range/Units 03:50 00:14 00:14 WBC 6.82 (4.8-10.8) K/uL RBC 3.31 L (4.2-5.4) M/uL Hgb 10.3 L (12.0-16.0) g/dL Hct 29.6 L (37-47) % MCV 89.4 (80-100) fL MCH 31.1 (25-34) pg MCHC 34.8 (32-36) g/dL RDW Std Deviation 53.4 H (36.4-46.3) fL RDW Coeff of Rosa 16.3 H (11.5-14.5) % Plt Count 104 L (130-400) K/uL MPV 8.7 (7.4-10.4) fL Immature Gran % (Auto) 0.4 % Neut % (Auto) 89.1 % Lymph % (Auto) 5.4 % [place] % (Auto) 5.0 % Eos % (Auto) 0.0 % Baso % (Auto) 0.1 % Immature Gran # (Auto) 0.03 H (0.00-0.02) K/uL Neut # (Auto) 6.07 (1.4-6.5) K/uL Lymph # (Auto) 0.37 L (1.2-3.4) K/uL [place] # (Auto) 0.34 (0.11-0.59) K/uL Eos # (Auto) 0.00 (0-0.5) K/uL Baso # (Auto) 0.01 (0-0.2) K/uL Sodium 133 L (136-145) mmol/L Potassium 2.9 L (3.5-5.1) mmol/L Chloride 99 (98-107) mmol/L Carbon Dioxide 25 (21-32) mmol/L Anion Gap 9.0 (3-11) BUN 11 (7-18) mg/dl Creatinine 0.98 (0.6-1.2) mg/dl Est Cr Clr Drug Dosing 68.5 ml/min Est GFR ( Amer) 72.2 Est GFR (Non-Af Amer) 62.3 BUN/Creatinine Ratio 10.7 (10-20) Glucose 261 H (70-99) mg/dl POC Glucose (70-99) Calcium 8.2 L (8.5-10.1) mg/dl Magnesium 1.8 (1.8-2.4) mg/dl Total Bilirubin 1.3 H (0.2-1) mg/dl AST 25 (15-37) U/L ALT 24 (12-78) U/L Alkaline Phosphatase 81 (45-117) U/L Total Protein 6.1 L (6.4-8.2) gm/dl Albumin 2.8 L (3.4-5.0) gm/dl Globulin 3.3 (2.5-4.0) gm/dl Albumin/Globulin Ratio 0.8 L (0.9-2) Lipase 40 L (73-393) U/L Urine Color Pending Urine Appearance Pending Urine pH Pending Ur Specific [place] Pending Urine Protein Pending Urine Glucose (UA) Pending Urine Ketones Pending Urine Blood Pending Urine Nitrite Pending Urine Bilirubin Pending Urine Urobilinogen Pending Ur Leukocyte Esterase Pending 09/02/18 Range/Units 23:29 WBC (4.8-10.8) K/uL RBC (4.2-5.4) M/uL Hgb (12.0-16.0) g/dL Hct (37-47) % MCV (80-100) fL MCH (25-34) pg MCHC (32-36) g/dL RDW Std Deviation (36.4-46.3) fL RDW Coeff of Rosa (11.5-14.5) % Plt Count (130-400) K/uL MPV (7.4-10.4) fL Immature Gran % (Auto) % Neut % (Auto) % Lymph % (Auto) % [place] % (Auto) % Eos % (Auto) % Baso % (Auto) % Immature Gran # (Auto) (0.00-0.02) K/uL Neut # (Auto) (1.4-6.5) K/uL Lymph # (Auto) (1.2-3.4) K/uL [place] # (Auto) (0.11-0.59) K/uL Eos # (Auto) (0-0.5) K/uL Baso # (Auto) (0-0.2) K/uL Sodium (136-145) mmol/L Potassium (3.5-5.1) mmol/L Chloride (98-107) mmol/L Carbon Dioxide (21-32) mmol/L Anion Gap (3-11) BUN (7-18) mg/dl Creatinine (0.6-1.2) mg/dl Est Cr Clr Drug Dosing ml/min Est GFR ( Amer) Est GFR (Non-Af Amer) BUN/Creatinine Ratio (10-20) Glucose (70-99) mg/dl POC Glucose 299 H (70-99) Calcium (8.5-10.1) mg/dl Magnesium (1.8-2.4) mg/dl Total Bilirubin (0.2-1) mg/dl AST (15-37) U/L ALT (12-78) U/L Alkaline Phosphatase (45-117) U/L Total Protein (6.4-8.2) gm/dl Albumin (3.4-5.0) gm/dl Globulin (2.5-4.0) gm/dl Albumin/Globulin Ratio (0.9-2) Lipase (73-393) U/L Urine Color Urine Appearance Urine pH Ur Specific [place] Urine Protein Urine Glucose (UA) Urine Ketones Urine Blood Urine Nitrite Urine Bilirubin Urine Urobilinogen Ur Leukocyte Esterase Code Status & VTE Plan Code Status full VTE Prophylaxis Plan VTE Prophylaxis will be ordered: Yes Supervising Physician Co-Signing Physician Notes Attending addendum: I have physically seen this patient, have supervised the medical residents activities, and agree with the H&P unless as otherwise noted. Assessment and Plan: Cough productive of yellow sputum/intractable nausea vomiting/breast cancer patient undergoing chemotherapy- Treat empirically as if she is in the process of developing sepsis. Vancomycin IV and Zosyn IV. Follow urine cultures, blood cultures and sputum cultures. Follow-up CT reports. Zofran 4 mg IV every 6 hours PRN. Famotidine 20 mg IV every 12 hours. NSS 125 mils per hour. Duonebs every 4 hours while awake and every 2 hours when necessary. Remainder of orders and notations as noted. Resident Activity Tracking Resident Involvement: Resident Care Provided Care Provided: Adult Hospital Medicine (1) Vomiting Nausea presence: with nausea Vomiting Intractability: unspecified Vomiting type: unspecified Qualified Code(s): R11.2 - Nausea with vomiting, unspecified
[2018-09-03] MEDS ORDERED: VANCOMYCIN HCL 1 GM/270 ML BAG ONE (04:19)
[2018-09-03] MEDS ORDERED: IOVERSOL 100ml IV PRN (04:21)
[2018-09-03 04:31] LABS: Appearance Urine Cloudy (Clear); Bacteria Urine Automated 2+ (Negative); Bilirubin Urine Negative (Negative); Blood Urine 2+ (Negative); Color Urine Dark Yellow; Epithelial Cell Urine Auto 20-30 /lpf (0-5); Glucose Urine UA 3+ (Negative); Ketones Urine 2+ (Negative); Leukocyte Esterase Urine 2+ (Negative); Nitrite Urine Positive (Negative); Protein Urine 1+ (Negative); RBC Urine Automated 0-4 /hpf (0-4); Specific Gravity Urine 1.021 (1.000-1.030); Urobilinogen Urine Negative (Negative); WBC Urine Automated >30 /hpf (0-5)
[2018-09-03 04:58] LABS: Cast Urine Automated 0 /lpf (0-5)
[2018-09-03] MEDS ORDERED: ALUMINUM/MAGNESIUM SUSP 30 ML UDC PO PRN (05:49)
[2018-09-03] MEDS ORDERED: VANCOMYCIN HCL 1,000 MG in SODIUM CHLORIDE 0.9% 250 ML IV SCH (05:49)
[2018-09-03] MEDS ORDERED: DEXTROSE 50% 50 ML SYRINGE IV PRN (05:49)
[2018-09-03] MEDS ORDERED: GLUCOSE 40% GEL 15 GM TUBE PO PRN (05:49)
[2018-09-03] MEDS ORDERED: ACETAMINOPHEN 325 MG TAB PO PRN (05:49)
[2018-09-03] MEDS ORDERED: POLYETHYLENE (MIRALAX) 17 GM PACK PO PRN (05:49)
[2018-09-03] MEDS ORDERED: GLUCOSE 10 TABS/TUBE PO PRN (05:49)
[2018-09-03] MEDS ORDERED: ONDANSETRON INJ 2 MG/ML 2 ML VIAL IV PRN (05:49)
[2018-09-03] MEDS ORDERED: MAGNESIUM HYDROXIDE SUSP 30 ML UDC PO PRN (05:49)
[2018-09-03] MEDS ORDERED: ALBUT/IPRATROP 3MG/0.5MG NEB 3 ML VIAL NEB PRN (05:49)
[2018-09-03] MEDS ORDERED: SODIUM CHLORIDE 0.9% 1000ML 1,000 ML IV SCH (05:49)
[2018-09-03] MEDS ORDERED: CARBOHYDRATES FOR HYPOGLYCEMIA PO PRN (05:49)
[2018-09-03] MEDS ORDERED: GLUCAGON FOR INJ 1 MG VIAL SQ PRN (05:49)
--- NOTE | 2018-09-03 06:12 | Emergency Department Note ---
Entered by Austyn Thompson acting as a scribe for Renetta Toledo MD History of Present Illness General Chief complaint: Neuro Symptoms/Deficit Stated complaint: WEAKNESS, ILLNESS Source: patient History of Present Illness Provider complaint: headache, vomiting, balance loss Onset (ago): day(s) 3 Location: head Pain Consistency: + intermittent Relieved By: + none Exacerbated By: + none Associated symptoms: + denies other symptoms, + headaches, + loss of appetite, + nausea/vomiting, + weakness and + other (loss of balance, right leg pain, tachycardia, dizziness. ) The patient is a 63 year old female who presents to the emergency department for evaluation of intermittent headache, loss of balance and vomiting that began yesterday. The patient states that she has not been feeling well for a few days with intermittent dizziness, nausea, a headache, right leg pain and tachycardia. She notes that she threw up this morning after being nauseous throughout the prior night. The patient reports that he has not been eating or drinking much over the past few days. She stated that she does take regular medications but they need refilled and she has not taken them for three to four days. The patient states that she has breast cancer for which she finished chemotherapy for in June, had a double mastectomy and will begin radiation for next week. She notes that she has also been experiencing chemobrain but worse over the past few days as well where she is having issues getting her words out. The patient notes she takes gabapentin as one for her regular medications but could not recall the name of the others. The patient notes she has a history of venous insufficiency, spinal fusion, and a laminectomy which resulted in right sided neuropathy. She denies any other symptoms. Home Medications Home Medications Medication Instructions Recorded Confirmed Type aspirin [Aspir-81] 81 mg PO QAM 01/15/18 09/03/18 History meclizine 25 mg PO DAILY PRN 01/15/18 09/03/18 History cholecalciferol (vitamin D3) 2,000 unit PO DAILY 02/23/18 09/03/18 History [Vitamin D3] cyanocobalamin (vit B-12) 1,000 0 mcg PO .TAKE 1 TABLET DAILY tab 08/30/18 09/03/18 History mcg tablet fluoxetine 40 mg capsule 40 mg PO QAM #90 cap 08/30/18 09/03/18 Rx gabapentin 100 mg capsule 200 mg PO TID #180 cap 08/30/18 09/03/18 Rx insulin aspart (U-100) 100 unit/mL See Rx Instructions SQ TID #15 ml 08/30/18 09/03/18 Rx (3 mL) subcutaneous pen ipratropium-albuterol 0.5 mg-3 3 ml INH Q4H PRN #180 ml 08/30/18 09/03/18 Rx mg(2.5 mg base)/3 mL nebulization soln levothyroxine 25 mcg tablet 25 mcg PO DAILY #30 tab 08/30/18 09/03/18 Rx losartan 100 1 tab PO DAILY #30 tab 08/30/18 09/03/18 Rx mg-hydrochlorothiazide 25 mg tablet metformin 1,000 mg tablet 1,000 mg PO BID #60 tab 08/30/18 09/03/18 Rx metoprolol succinate ER 25 mg 25 mg PO DAILY #30 tab 08/30/18 09/03/18 Rx tablet,extended release 24 hr omega-3 acid ethyl esters 1 gram 2 g PO DAILY cap 08/30/18 09/03/18 History capsule insulin degludec (U-200) 200 68 units SUBCUT DAILY ml 09/01/18 09/03/18 History unit/mL (3 mL) subcutaneous pen levothyroxine 200 mcg tablet 200 mcg PO QAM tab 09/01/18 09/03/18 History Allergies Allergy/AdvReac Type Severity Reaction Status Date / Time adhesive Allergy Unknown "BLISTERS Verified 09/03/18 00:31 AND PULLS MY SKIN OFF" codeine AdvReac Mild Nausea Verified 09/03/18 00:31 erythromycin base AdvReac Unknown STOMACH Verified 09/03/18 00:31 PAIN indomethacin AdvReac Unknown "THINS Verified 09/03/18 00:31 BLOOD OUT TOO MUCH" valacyclovir [From Valtrex] AdvReac Unknown Palpitation Verified 09/03/18 00:31 s Past Med/Surg History Medical History Pneumonia (Acute) hospitalization in June 2018 Morbid obesity (Acute) Anxiety PANIC ATTACKS Cancer BREAST CANCER-RIGHT SIDE Degenerative disc disease Depression Diabetes mellitus, type 2 INSULIN/ORAL MEDS- Diabetes mellitus, type 2 Fatty liver GERD (gastroesophageal reflux disease) History of recent steroid use Hx of breast cancer HX OF BILATERAL MASTECTOMY NOV 2017. 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 DO NOT USE RIGHT ARM History of tonsillectomy Family History Mother Family history of diabetes mellitus Heart disease Hypertension Father , age 57 Heart disease Hodgkin disease Sister Hypertension Daughter Colonic polyp Daughter Appendiceal carcinoid tumor had surgery age 22 / no other treatment Abnormal breast exam, Onset Age: 31 mammogram scheduled for 09-18-18 spots , 1 in each breast Aunt Gallbladder cancer, carcinoma Family/Other Breast cancer cousin Social History Preferred Language: Haitian Communication Ability: Effective Visual Impairment: No Limitations Hearing Ability: Normal Beliefs That Will Affect Care: None marital status: Current Living Situation: Spouse current occupational status: retired current occupation: Retired / works Adminisrative associate for [employer] Feels Safe at Home: Yes Smoking Status: Former smoker Tobacco Type: cigarettes Age Started Using Tobacco: 19 packs per day: 1.5 Cigarettes Per Day: HX OF 1.5 PPD X 10 YEARS (STARTED OUT AT ABOUT 1/2 PPD) Second Hand Exposure: Yes Hx Alcohol Use: Yes Alcohol type: hard liquor Alcohol Intake Frequency Comment: drinks socially Hx Substance Use: No Review of Systems See HPI for pertinent positives & negatives. and A total of 10 systems reviewed and were otherwise negative Physical Exam Vital Signs Vital Signs - 24 hr 09/02/18 22:40 09/02/18 23:02 09/02/18 23:04 Temperature 37 C Temperature Source Oral Sepsis Recent Fever Within 48 Hours No Sepsis Action Taken by Nursing No Action Required Pulse Rate 109 H 110 H 110 H Pulse Rate from SpO2 Sensor 110 H 110 H Respiratory Rate 20 17 28 H Respiratory Effort / Characteristics Normal for Patient Respiratory Depth Normal Blood Pressure 152/101 H 152/101 H Blood Pressure Mean 118 118 Blood Pressure Position Lying Pulse Oximetry 96 97 96 Oxygen Delivery Method Room Air 09/02/18 23:06 09/02/18 23:17 09/02/18 23:30 Temperature Temperature Source Sepsis Recent Fever Within 48 Hours Sepsis Action Taken by Nursing Pulse Rate 108 H Pulse Rate from SpO2 Sensor 108 H Respiratory Rate 20 Respiratory Effort / Characteristics Respiratory Depth Blood Pressure Blood Pressure Mean Blood Pressure Position Pulse Oximetry 96 96 97 Oxygen Delivery Method Room Air Room Air 09/03/18 00:00 09/03/18 00:36 09/03/18 01:00 Temperature Temperature Source Sepsis Recent Fever Within 48 Hours Sepsis Action Taken by Nursing Pulse Rate 106 H 113 H 105 H Pulse Rate from SpO2 Sensor 106 H 104 H Respiratory Rate 22 20 23 Respiratory Effort / Characteristics Respiratory Depth Blood Pressure 163/81 H 138/82 Blood Pressure Mean 108 100 Blood Pressure Position Pulse Oximetry 94 93 Oxygen Delivery Method 09/03/18 01:38 09/03/18 02:00 09/03/18 02:01 Temperature Temperature Source Sepsis Recent Fever Within 48 Hours Sepsis Action Taken by Nursing Pulse Rate 118 H 113 H 108 H Pulse Rate from SpO2 Sensor 112 H 109 H Respiratory Rate 21 28 H 23 Respiratory Effort / Characteristics Respiratory Depth Blood Pressure 152/69 H Blood Pressure Mean 96 Blood Pressure Position Pulse Oximetry 97 98 Oxygen Delivery Method 09/03/18 02:30 09/03/18 02:52 09/03/18 02:59 Temperature 38.9 C H Temperature Source Oral Sepsis Recent Fever Within 48 Hours Sepsis Action Taken by Nursing Pulse Rate 110 H 116 H Pulse Rate from SpO2 Sensor 111 H 116 H Respiratory Rate 27 H 23 Respiratory Effort / Characteristics Respiratory Depth Blood Pressure 162/99 H Blood Pressure Mean 120 Blood Pressure Position Pulse Oximetry 97 98 Oxygen Delivery Method 09/03/18 03:00 09/03/18 03:02 Temperature Temperature Source Sepsis Recent Fever Within 48 Hours Sepsis Action Taken by Nursing Pulse Rate 116 H 117 H Pulse Rate from SpO2 Sensor 117 H Respiratory Rate 21 16 Respiratory Effort / Characteristics Respiratory Depth Blood Pressure 167/79 H Blood Pressure Mean 108 Blood Pressure Position Pulse Oximetry 97 Oxygen Delivery Method Vital signs reviewed. General: Chronically ill appearing, in no significant distress. Alopecia, dry m ucus membranes, and appears to have dried emesis on her neck. HEENT: No scleral icterus, PERRLA, neck supple. Atraumatic. Cardiovascular: Regular rate and rhythm, no extra sounds. Pulmonary: Clear to auscultation bilaterally, normal work of breathing. Abdomen: Obese abdomen is soft, nontender, nondistended, and has positive bowel sounds. Musculoskeletal: Atraumatic, no peripheral edema. Neurologic: Patient awake alert and oriented x 3, full strength in all 4 extremities. Cranial nerves 2 through 12 grossly intact. Venous stasis changes of the bilateral lower extremities. Skin: Warm, dry, no rash Course 2312: The patient was evaluated in room B07. A complete history and physical exam was performed. 0247: I checked on the patient. The patient is tachycardic and has a temperature. 0400: I spoke with Dr. Arroyo [facility]. He will evaluate the patient for further management. Administered Medications Albuterol (Duoneb) 3 ml INH Q4H PRN PRN Reason: wheezing Stop: 10/03/18 03:47 Last Admin: 09/03/18 04:22 Dose: 3 ml Documented by: [id number] Enoxaparin Sodium (Lovenox) 40 mg SQ Q24H HETAL Stop: 10/03/18 08:59 Last Admin: 09/03/18 08:31 Dose: 40 mg Documented by: [id number] Famotidine (Pepcid) 20 mg PO QAM HETAL Stop: 10/03/18 08:59 Last Admin: 09/03/18 08:29 Dose: 20 mg Documented by: [id number] Gabapentin (Neurontin) 200 mg PO TID HETAL Stop: 10/03/18 08:59 Last Admin: 09/03/18 21:44 Dose: 200 mg Documented by: [id number] Admin: 09/03/18 13:58 Dose: 200 mg Documented by: [id number] Admin: 09/03/18 08:29 Dose: 200 mg Documented by: [id number] Heparin Sodium (Porcine) (Heparin Sod 100 Unit/Ml Flush) 5 ml FLUSH PRN HETAL Stop: 10/03/18 07:29 Last Admin: 09/03/18 10:49 Dose: Not Given Documented by: [id number] Piperacillin Sod/Tazobactam (Sod 4.5 gm/ Dextrose) 120 mls @ 30 mls/hr IV Q8H HETAL; Protocol Stop: 09/05/18 09:59 Last Admin: 09/04/18 01:42 Dose: 30 mls/hr Documented by: [id number] Infusion: 09/04/18 01:42 Dose: 0 mls/hr Documented by: [id number] Infusion: 09/03/18 19:50 Dose: 0 mls/hr Documented by: [id number] Admin: 09/03/18 18:17 Dose: 30 mls/hr Documented by: [id number] Infusion: 09/03/18 14:50 Dose: 0 mls/hr Documented by: [id number] Admin: 09/03/18 10:49 Dose: 30 mls/hr Documented by: [id number] Potassium Chloride 40 meq/ (Sodium Chloride) 1,020 mls @ 100 mls/hr IV .[id number] HETAL Stop: 10/03/18 07:59 Last Admin: 09/03/18 23:29 Dose: 100 mls/hr Documented by: [id number] Infusion: 09/03/18 20:50 Dose: 100 mls/hr Documented by: [id number] Infusion: 09/03/18 20:00 Dose: 100 mls/hr Documented by: [id number] Infusion: 09/03/18 17:50 Dose: 0 mls/hr Documented by: [id number] Admin: 09/03/18 08:28 Dose: 100 mls/hr Documented by: [id number] Vancomycin HCl 1,250 mg/ (Sodium Chloride) 275 mls @ 125 mls/hr IV Q14H HETAL Stop: 09/05/18 17:59 Last Infusion: 09/03/18 20:00 Dose: 0 mls/hr Documented by: [id number] Admin: 09/03/18 17:42 Dose: 125 mls/hr Documented by: [id number] Insulin Human Regular 250 (units/ Sodium Chloride) 250 mls @ 0 mls/hr IV .Q0M HETAL; Protocol Stop: 10/03/18 12:59 Last Titration: 09/03/18 21:35 Dose: 0 units/hr, 0 mls/hr Documented by: [id number] Cosigned by: [id number] Titration: 09/03/18 19:50 Dose: 4.1 units/hr, 4.1 mls/hr Documented by: [id number] Cosigned by: [id number] Titration: 09/03/18 19:08 Dose: 2.9 units/hr, 2.9 mls/hr Documented by: [id number] Cosigned by: [id number] Titration: 09/03/18 18:35 Dose: 2.9 units/hr, 2.9 mls/hr Documented by: [id number] Cosigned by: [id number] Titration: 09/03/18 17:30 Dose: 2.9 units/hr, 2.9 mls/hr Documented by: [id number] Cosigned by: [id number] Titration: 09/03/18 16:22 Dose: 2.9 units/hr, 2.9 mls/hr Documented by: [id number] Cosigned by: [id number] Titration: 09/03/18 15:44 Dose: 2.9 units/hr, 2.9 mls/hr Documented by: [id number] Cosigned by: [id number] Titration: 09/03/18 13:59 Dose: 2.9 units/hr, 2.9 mls/hr Documented by: [id number] Cosigned by: [id number] Admin: 09/03/18 13:06 Dose: 2.9 units/hr, 2.9 mls/hr Documented by: [id number] Cosigned by: [id number] Insulin Aspart (Novolog Flexpen) 0 units SC 0000,0400 [facility] Stop: 09/04/18 04:01 Last Admin: 09/03/18 23:59 Dose: Not Given Documented by: [id number] Cosigned by: [id number] Insulin Glargine (Lantus Solostar Pen) 10 units SC BID [facility] Stop: 10/03/18 08:59 Last Admin: 09/03/18 08:30 Dose: 10 units Documented by: [id number] Cosigned by: [id number] Ioversol (Optiray 320 125ml) 119 ml IV ONCE PRN PRN Reason: Interaction Checking Stop: 09/07/18 11:43 Last Admin: 09/03/18 11:45 Dose: 119 ml Documented by: [id number] Metoprolol Succinate (Toprol Xl) 25 mg PO DAILY [facility] Stop: 10/03/18 08:59 Last Admin: 09/03/18 08:29 Dose: 25 mg Documented by: [id number] Ondansetron HCl (Zofran) 4 mg IV Q6H PRN PRN Reason: Nausea Stop: 10/03/18 05:48 Last Admin: 09/03/18 10:01 Dose: 4 mg Documented by: [id number] Discontinued Medications Acetaminophen (Ofirmev) 1,000 mg IV ONCE STA Stop: 09/03/18 02:52 Last Admin: 09/03/18 03:21 Dose: 1,000 mg Documented by: [id number] Albuterol (Duoneb) 3 ml NEB NOW STA Stop: 09/03/18 03:51 Last Admin: 09/03/18 05:09 Dose: Not Given Documented by: [id number] Aspirin (Ecotrin Ectab) 81 mg PO QAM HETAL Stop: 10/03/18 08:59 Last Admin: 09/03/18 08:29 Dose: 81 mg Documented by: [id number] Doxycycline Hyclate (Vibramycin) 100 mg PO NOW STA Stop: 09/03/18 03:51 Last Admin: 09/03/18 05:10 Dose: Not Given Documented by: [id number] Famotidine (Pepcid 20mg Iv Push) 20 mg IV ONE STA Stop: 09/03/18 02:38 Last Admin: 09/03/18 03:21 Dose: 20 mg Documented by: [id number] [facility]) [facility] Stop: 10/03/18 08:59 Last Admin: 09/03/18 08:29 Dose: 40 mg Documented by: [id number] HCTZ/Losartan Potassium (Hyzaar 50/12.5mg) 1 tab PO DAILY [facility] Stop: 10/03/18 08:59 Last Admin: 09/03/18 08:29 Dose: 1 tab Documented by: [id number] Sodium Chloride (Nss) 250 mls @ 999 mls/hr IV .Q16M ONE Stop: 09/02/18 23:34 Last Infusion: 09/03/18 01:00 Dose: 0 mls/hr Documented by: [id number] Admin: 09/03/18 00:42 Dose: 999 mls/hr Documented by: [id number] Sodium Chloride (Nss 1000ml) 1,000 mls @ 125 mls/hr IV .Q8H HETAL Stop: 10/02/18 23:29 Last Infusion: 09/03/18 06:13 Dose: 0 mls/hr Documented by: [id number] Admin: 09/03/18 00:43 Dose: 125 mls/hr Documented by: [id number] Potassium Chloride (K Thierno / Wtr) 10 meq in 100 mls @ 100 mls/hr IV ONE ONE Stop: 09/03/18 02:03 Last Infusion: 09/03/18 02:11 Dose: 0 mls/hr Documented by: [id number] Admin: 09/03/18 01:07 Dose: 100 mls/hr Documented by: [id number] Sodium Chloride (Nss 1000ml) 1,000 mls @ 999 mls/hr IV .Q1H1M ONE Stop: 09/03/18 03:53 Last Infusion: 09/03/18 04:44 Dose: 0 mls/hr Documented by: [id number] Admin: 09/03/18 03:21 Dose: 999 mls/hr Documented by: [id number] Piperacillin Sod/Tazobactam Sod (Zosyn) 4.5 gm in 120 mls @ 240 mls/hr IV NOW ONE Stop: 09/03/18 03:24 Last Infusion: 09/03/18 03:56 Dose: 0 mls/hr Documented by: [id number] Admin: 09/03/18 03:21 Dose: 240 mls/hr Documented by: [id number] Vancomycin HCl 2,750 mg/ (Sodium Chloride) 555 mls @ 200 mls/hr IV NOW ONE; Protocol Stop: 09/03/18 05:41 Last Infusion: 09/03/18 09:11 Dose: 0 mls/hr Documented by: [id number] Admin: 09/03/18 04:44 Dose: 200 mls/hr Documented by: [id number] Sodium Chloride (Nss 1000ml) 1,000 mls @ 125 mls/hr IV .Q8H [facility] Stop: 10/03/18 05:48 Last Infusion: 09/03/18 09:10 Dose: 0 mls/hr Documented by: [id number] Admin: 09/03/18 06:13 Dose: 125 mls/hr Documented by: [id number] Potassium Chloride (K Thierno / Wtr) 10 meq in 100 mls @ 100 mls/hr IV Q1H HETAL Stop: 09/03/18 09:59 Last Infusion: 09/03/18 11:15 Dose: 0 mls/hr Documented by: [id number] Admin: 09/03/18 10:01 Dose: 100 mls/hr Documented by: [id number] Infusion: 09/03/18 09:28 Dose: 100 mls/hr Documented by: [id number] Admin: 09/03/18 08:28 Dose: 100 mls/hr Documented by: [id number] Insulin Aspart (Novolog Flexpen) 0 units SC ACHS [facility] Stop: 10/03/18 07:29 Last Admin: 09/03/18 08:32 Dose: 4 units Documented by: [id number] Cosigned by: [id number] Insulin Aspart (Novolog Flexpen) 0 units SC Q6 [facility] Stop: 10/03/18 11:59 Last Admin: 09/03/18 12:52 Dose: Not Given Documented by: [id number] Insulin Aspart (Novolog Flexpen) 0 units SC [facility] Stop: 10/03/18 12:59 Last Admin: 09/03/18 21:45 Dose: Not Given Documented by: [id number] Cosigned by: [id number] Admin: 09/03/18 18:40 Dose: 5 units Documented by: [id number] Cosigned by: [id number] Admin: 09/03/18 17:36 Dose: Not Given Documented by: [id number] Cosigned by: [id number] Admin: 09/03/18 13:15 Dose: Not Given Documented by: [id number] Cosigned by: [id number] Insulin Glargine (Lantus Solostar Pen) 40 units SC ONE ONE Stop: 09/03/18 12:46 Last Admin: 09/03/18 13:05 Dose: 40 units Documented by: [id number] Cosigned by: [id number] Insulin Glargine (Lantus Solostar Pen) 0 units SC [facility]; Protocol Stop: 09/03/18 21:01 Last Admin: 09/03/18 21:44 Dose: 15 units Documented by: [id number] Cosigned by: [id number] Insulin Human Regular (Novolin R Bolus From Bag) 3 units IV ONE ONE Stop: 09/03/18 13:01 Last Admin: 09/03/18 13:07 Dose: 3 units Documented by: [id number] Cosigned by: [id number] Ioversol (Optiray 320 100ml) 100 ml IV ONCE PRN PRN Reason: Interaction Checking Stop: 09/07/18 04:20 Last Admin: 09/03/18 04:21 Dose: 93 ml Documented by: [id number] Levothyroxine S[facility] (Synthroid) [facility] Stop: 10/03/18 06:29 Last Admin: 09/03/18 06:29 Dose: 25 mcg Documented by: [id number] Levothyroxine Sodium (Synthroid) 200 [facility] Stop: 10/03/18 06:29 Last Admin: 09/03/18 06:29 Dose: 200 mcg Documented by: [id number] Methylprednisolone (Solumedrol) 125 mg IV NOW STA Stop: 09/03/18 03:51 Last Admin: 09/03/18 05:10 Dose: Not Given Documented by: [id number] Miscellaneous (Insulin Protocol Goal Range) 1 ea N/A ONE ONE Stop: 09/03/18 12:32 Last Admin: 09/03/18 13:06 Dose: 1 ea Documented by: [id number] Miscellaneous (Insulin Protocol Moderate Stress Level) 1 ea N/A ONE ONE Stop: 09/03/18 12:32 Last Admin: 09/03/18 13:06 Dose: 1 ea Documented by: [id number] Ondansetron HCl (Zofran) 4 mg IV NOW STA Stop: 09/02/18 23:18 Last Admin: 09/03/18 00:36 Dose: 4 mg Documented by: [id number] Ondansetron HCl (Zofran) 4 mg IV NOW STA Stop: 09/03/18 02:55 Last Admin: 09/03/18 03:21 Dose: 4 mg Documented by: [id number] Vancomycin HCl (Vancomycin Hcl) Confirm Administered Dose 1,000 mg .ROUTE .STK- MED ONE Stop: 09/03/18 04:20 Last Admin: 09/03/18 04:46 Dose: Not Given Documented by: [id number] Medical Decision Making Differential Diagnosis Differential includes acute coronary syndrome, myocardial infarction, CVA, TIA, anemia, infection, pneumonia, UTI, pyelonephritis, poor nutrition, dehydration, electrolyte disturbance,hypoglycemia. Medical Records Attestation: I reviewed the patient's medical records. Home Medications Current Medication List: was personally reviewed by me Laboratory Data Attestation: I reviewed the patient's lab results. Result diagrams: 09/03/18 06:54 09/03/18 06:54 Lab Results 09/02/18 09/03/18 09/03/18 Range/Units 23:29 00:14 00:14 WBC 6.82 (4.8-10.8) K/uL RBC 3.31 L (4.2-5.4) M/uL Hgb 10.3 L (12.0-16.0) g/dL Hct 29.6 L (37-47) % MCV 89.4 (80-100) fL MCH 31.1 (25-34) pg MCHC 34.8 (32-36) g/dL RDW Std Deviation 53.4 H (36.4-46.3) fL RDW Coeff of Rosa 16.3 H (11.5-14.5) % Plt Count 104 L (130-400) K/uL MPV 8.7 (7.4-10.4) fL Immature Gran % (Auto) 0.4 % Neut % (Auto) 89.1 % Lymph % (Auto) 5.4 % [place] % (Auto) 5.0 % Eos % (Auto) 0.0 % Baso % (Auto) 0.1 % Immature Gran # (Auto) 0.03 H (0.00-0.02) K/uL Neut # (Auto) 6.07 (1.4-6.5) K/uL Lymph # (Auto) 0.37 L (1.2-3.4) K/uL [place] # (Auto) 0.34 (0.11-0.59) K/uL Eos # (Auto) 0.00 (0-0.5) K/uL Baso # (Auto) 0.01 (0-0.2) K/uL Sodium 133 L (136-145) mmol/L Potassium 2.9 L (3.5-5.1) mmol/L Chloride 99 (98-107) mmol/L Carbon Dioxide 25 (21-32) mmol/L Anion Gap 9.0 (3-11) BUN 11 (7-18) mg/dl Creatinine 0.98 (0.6-1.2) mg/dl Est Cr Clr Drug Dosing 68.5 ml/min Est GFR ( Amer) 72.2 Est GFR (Non-Af Amer) 62.3 BUN/Creatinine Ratio 10.7 (10-20) Glucose 261 H (70-99) mg/dl POC Glucose 299 H (70-99) Calcium 8.2 L (8.5-10.1) mg/dl Magnesium 1.8 (1.8-2.4) mg/dl Total Bilirubin 1.3 H (0.2-1) mg/dl AST 25 (15-37) U/L ALT 24 (12-78) U/L Alkaline Phosphatase 81 (45-117) U/L Total Protein 6.1 L (6.4-8.2) gm/dl Albumin 2.8 L (3.4-5.0) gm/dl Globulin 3.3 (2.5-4.0) gm/dl Albumin/Globulin Ratio 0.8 L (0.9-2) Lipase 40 L (73-393) U/L Urine Color Urine Appearance (Clear) Urine pH (4.5-7.5) Ur Specific Nicolaus (1.000-1.030) Urine Protein (Negative) Urine Glucose (UA) (Negative) Urine Ketones (Negative) Urine Blood (Negative) Urine Nitrite (Negative) Urine Bilirubin (Negative) Urine Urobilinogen (Negative) Ur Leukocyte Esterase (Negative) Urine WBC (Auto) (0-5) /hpf Urine RBC (Auto) (0-4) /hpf U Hyaline Cast (Auto) (0-5) /lpf U Epithel Cells (Auto) (0-5) /lpf Urine Bacteria (Auto) (Negative) 09/03/18 Range/Units 03:50 WBC (4.8-10.8) K/uL RBC (4.2-5.4) M/uL Hgb (12.0-16.0) g/dL Hct (37-47) % MCV (80-100) fL MCH (25-34) pg MCHC (32-36) g/dL RDW Std Deviation (36.4-46.3) fL RDW Coeff of Rosa (11.5-14.5) % Plt Count (130-400) K/uL MPV (7.4-10.4) fL Immature Gran % (Auto) % Neut % (Auto) % Lymph % (Auto) % [place] % (Auto) % Eos % (Auto) % Baso % (Auto) % Immature Gran # (Auto) (0.00-0.02) K/uL Neut # (Auto) (1.4-6.5) K/uL Lymph # (Auto) (1.2-3.4) K/uL [place] # (Auto) (0.11-0.59) K/uL Eos # (Auto) (0-0.5) K/uL Baso # (Auto) (0-0.2) K/uL Sodium (136-145) mmol/L Potassium (3.5-5.1) mmol/L Chloride (98-107) mmol/L Carbon Dioxide (21-32) mmol/L Anion Gap (3-11) BUN (7-18) mg/dl Creatinine (0.6-1.2) mg/dl Est Cr Clr Drug Dosing ml/min Est GFR ( Amer) Est GFR (Non-Af Amer) BUN/Creatinine Ratio (10-20) Glucose (70-99) mg/dl POC Glucose (70-99) Calcium (8.5-10.1) mg/dl Magnesium (1.8-2.4) mg/dl Total Bilirubin (0.2-1) mg/dl AST (15-37) U/L ALT (12-78) U/L Alkaline Phosphatase (45-117) U/L Total Protein (6.4-8.2) gm/dl Albumin (3.4-5.0) gm/dl Globulin (2.5-4.0) gm/dl Albumin/Globulin Ratio (0.9-2) Lipase (73-393) U/L Urine Color Dark Yellow Urine Appearance Cloudy A (Clear) Urine pH 5.0 (4.5-7.5) Ur Specific [place] 1.021 (1.000-1.030) Urine Protein 1+ H (Negative) Urine Glucose (UA) 3+ H (Negative) Urine Ketones 2+ H (Negative) Urine Blood 2+ H (Negative) Urine Nitrite Positive A (Negative) Urine Bilirubin Negative (Negative) Urine Urobilinogen Negative (Negative) Ur Leukocyte Esterase 2+ H (Negative) Urine WBC (Auto) >30 H (0-5) /hpf Urine RBC (Auto) 0-4 (0-4) /hpf U Hyaline Cast (Auto) 0 (0-5) /lpf U Epithel Cells (Auto) 20-30 H (0-5) /lpf Urine Bacteria (Auto) 2+ H (Negative) Imaging Data Radiologist's Impression: Radiology results as stated below per my review and the radiologist's interpretation: CT HEAD No ICH, mass effect,or midline shift. No acute cortical infarct. MRI may be considered if there is persistent concern. Mild nonspecific white matter low attenuation, possible small vessel disease or other etiologies. Small mastoid fluids. US VENOUS RIGHT LOWER EXTREMITY: No evidence of deep venous thrombosis. CT ABDOMEN AND PELVIS with contrast: Heterogeneous right renal enhancement with areas of low-attenuation, suggestive of pyelonephritis in the appropriate clinical setting. Underlying mass not entirely excluded. Mild bladder wall thickening. Fluid in the small and large bowel can be seen with enteritis or diarrhea disease. No evidence of bowel obstruction. Normal appendix. Mild distal esophageal wall thickening. Solid appearing left adnexal lesion may be ovarian. Ultrasound may be considered if indicated. Fatty liver. Splenomegaly. Mild nonspecific reticulonodular lung disease. MDM Narrative This patient was evaluated and appeared to be in no distress. Initial physical evaluation and history are unclear. Patient complained of headache, vomiting an d possible DVT. Patient's work-up was fairly unrevealing with exception of chronic anemia. CT scan of the head was performed and is negative. Ultrasound of the lower extremity was negative for DVT. On my reevaluation the patient, she had become febrile and tachycardic. Blood cultures and a lactate were ordered. IV fluids were increased. IV Zosyn and vancomycin were administered. CT scan of the abdomen pelvis was then ordered and is significant for likely pyelonephritis. There is a delay in obtaining the catheterized urine specimen however it does appear to be positive. Patient's lactate is elevated. Patient was given IV Tylenol. Case was discussed with the hospitalist, Dr. Viera, who will evaluate the patient for admission and further management. Impression & Plan Sepsis, Vomiting, Breast cancer, UTI (urinary tract infection) Discharge Plan Visit Data *Final* Discharge Date/Time: 09/03/18 05:21 Chief Complaint: Neuro Symptoms/Deficit Stated Complaint: WEAKNESS, ILLNESS ED Provider: Renetta Toledo Discharge Problem: Sepsis, Vomiting, Breast cancer, UTI (urinary tract infection) Patient Disposition: Admitted As Inpatient Discharge Instructions Interventions: ED Discharge Assessment Last Done: 09/03/18 05:21 The scribe's documentation has been prepared under my direction and personally reviewed by me in its entirety. I confirm that the note above accurately r eflects all work, treatment, procedures, and medical decision making performed by me.
[2018-09-03] MEDS ORDERED: LEVOTHYROXINE SODIUM 25 MCG TABLET PO SCH ×2 (06:30→09:00)
[2018-09-03] MEDS ORDERED: LEVOTHYROXINE SODIUM 200 MCG TABLET PO SCH ×2 (06:30→09:00)
--- NOTE | 2018-09-03 06:35 | CT Scan Report ---
CT OF THE HEAD WITHOUT CONTRAST CLINICAL HISTORY: AMS, memory issues, ORDOÑEZ, breast CA COMPARISON STUDY: No previous studies for comparison. CT DOSE: 663.41 mGy.cm TECHNIQUE: Helical axial images of the head were obtained without IV contrast. Automated exposure con trol was utilized for the study. A dose lowering technique was utilized adhering to the principles o f ALARA. FINDINGS: No acute intracranial hemorrhage, midline shift or mass effect is present. Brain findings n ormal. Ventricular system is normal. The basilar cisterns are patent. There are no extra-axial collec tions. There are no findings to suggest acute dural sinus thrombosis or acute territorial infarct. Th ere are no significant calvarial abnormalities. Visualized portions of the sinuses and mastoid air ce lls are clear. IMPRESSION: No acute intracranial findings. Electronically signed by: Raman Peña M.D. 09/03/2018 6:34 AM
--- NOTE | 2018-09-03 07:11 | Ultrasound Report ---
RIGHT LOWER EXTREMITY VENOUS DOPPLER HISTORY: Right leg swelling. DVT COMPARISON STUDY: None. FINDINGS: There is normal compressibility, flow, and augmentation within the right lower extremity de ep venous system. IMPRESSION: No DVT within the right lower extremity Electronically signed by: Alphonso Ridley M.D. 09/03/2018 7:09 AM
[2018-09-03 07:16] LABS: INR 1.2 (0.9-1.1); Prothrombin Time 11.9 Seconds (9.0-12.0)
[2018-09-03] MEDS ORDERED: INSULIN ASPART 100 UNITS/ML 3 ML PEN SC SCH ×2 (07:30→12:00)
--- NOTE | 2018-09-03 07:33 | XRay Report ---
SINGLE VIEW CHEST CLINICAL HISTORY: Cough. FINDINGS: An AP, portable, upright chest radiograph is compared to study dated 07/19/2018 and correlat ed with chest CT dated 07/17/2018. The examination is degraded by portable technique, large body habit us, and patient rotation. A left subclavian central venous infusion port is unchanged in position. Th e heart is enlarged. There is mild pulmonary vascular congestion. Bibasilar atelectasis is noted. No airspace consolidation or large pleural effusion is seen. No pneumothorax is seen. The skeletal struc tures are osteopenic. The bony thorax is grossly intact. Degenerative change is noted in the thoracic spine. IMPRESSION: Cardiomegaly with evidence of mild congestive failure. Electronically signed by: Kev Rendon M.D. 09/03/2018 7:31 AM
--- NOTE | 2018-09-03 07:41 | CT Scan Report ---
CT SCAN OF THE ABDOMEN AND PELVIS WITH IV CONTRAST CLINICAL HISTORY: Epigastric abdominal pain. Nausea and vomiting. Fever. Breast cancer. COMPARISON STUDY: No priors. TECHNIQUE: Following the IV administration of 93 cc of Optiray 320, CT scan of the abdomen and pelvi s is performed from the lung bases to the proximal femora. Images are reviewed in the axial, sagittal , and coronal planes. IV contrast was administered without complication. A dose lowering technique wa s utilized adhering to the principles of ALARA. CT DOSE: 1470.55 mGy.cm FINDINGS: Lung bases: The heart is normal in size and without pericardial effusion. The lung bases are clear. T here is a tiny hiatal hernia. Liver: The contrast-enhanced liver is mildly enlarged measuring 18.4 cm in length. The liver demonstr ates diffusely diminished attenuation consistent with hepatic steatosis. There is no intrahepatic ella iary ductal dilatation. The hepatic veins and portal veins are patent. A calcified granuloma is noted in the hepatic dome. Gallbladder: Surgically absent noting clips in the gallbladder fossa. Spleen: The spleen is mildly enlarged measuring 13.4 cm in length. Pancreas: Mildly atrophic and grossly unremarkable. Adrenal glands: Unremarkable. Kidneys: The contrast enhanced kidneys are normal in size and without hydronephrosis. The kidneys enh ance symmetrically. Scattered subcentimeter cortical hypodensities likely represent cysts but are too small for definitive characterization. There is slightly heterogeneous enhancement of the right kidn ey with mild nonspecific bilateral perinephric stranding. Urothelial thickening is suggested in the r ight renal pelvis. Abdominal vasculature: The abdominal aorta is normal in course and caliber noting scattered foci of a therosclerotic calcification. Bowel: The small bowel and colon are normal in course and caliber. The appendix is well-visualized a nd normal. Peritoneum: There is no intraperitoneal free air or abdominal ascites. Lymphadenopathy: None. Pelvic viscera: The bladder and uterus are normal as imaged. There is a 3.0 cm rounded soft tissue no dule in the left adnexa seen on image #[id number].. Skeletal structures: The skeletal structures are osteopenic. There is mild lumbosacral spondylosis. T here are postoperative changes from L5 -S1 spinal fusion. No lytic or blastic lesions are seen. IMPRESSION: 1. There is slightly heterogeneous enhancement of the right kidney with associated urothelial thicken ing in the right renal pelvis. This could be seen in the setting of urinary tract infection/pyeloneph ritis. Correlation with clinical findings and urinalysis will be required. 2. Hepatomegaly and hepatic steatosis. 3. Mild splenomegaly. 4. There is a 3.0 cm soft tissue nodule in the left adnexa. This could represent an exophytic fibroid or could be related to the left ovary. Correlation with a nonemergent pelvic ultrasound is recommend ed for further assessment. 5. Additional findings as above. Electronically signed by: Kev Rendon M.D. 09/03/2018 7:40 AM
[2018-09-03 08:23] LABS: Calcium 7.5 mg/dl (8.5-10.1); Creatinine Clr Calc Pharmacy 72.1 ml/min; Est GFR (African American) 76.9; Est GFR (Non-African American) 66.3; Potassium 3.1 mmol/L (3.5-5.1)
[2018-09-03] MEDS: POTASSIUM CHLORIDE / WTR 10 MEQ/100 ML PLCT IV SCH ×2 (08:28→10:01)
[2018-09-03] MEDS: POTASSIUM CHLORIDE 40 MEQ in SODIUM CHLORIDE 0.9% 1000ML 1,000 ML IV SCH ×2 (08:28→23:29)
[2018-09-03] MEDS: FAMOTIDINE 20 MG TAB PO SCH (08:29)
[2018-09-03] MEDS: GABAPENTIN 100 MG CAP PO SCH ×3 (08:29→21:44)
[2018-09-03] MEDS: METOPROLOL SUCC 25MG EXT REL TAB PO SCH (08:29)
[2018-09-03] MEDS: ENOXAPARIN INJ 40 MG/0.4 ML SYR SQ SCH (08:31)
[2018-09-03] MEDS ORDERED: ASPIRIN 81 MG ECTAB PO SCH (09:00)
[2018-09-03] MEDS ORDERED: FLUOXETINE HCL 20 MG CAP PO SCH (09:00)
[2018-09-03] MEDS ORDERED: LOSARTAN/HCTZ 50/12.5MG TAB PO SCH (09:00)
[2018-09-03] MEDS ORDERED: INSULIN GLARGINE SOLOSTAR 100 UNITS/ML 3 ML PEN SC SCH ×2 (09:00→21:00)
[2018-09-03] MEDS ORDERED: NURSING DECISION MEDICATION ONE (09:34)
--- NOTE | 2018-09-03 10:38 | Hospitalist Progress Note ---
Date of Service September 03, 2018 Assessment & Plan (1) Acute respiratory failure with hypoxia: patient went into acute respiratory distress this morning breathing 30-40 times a minute, saturations 60-70% on nasal canula lungs were clear patient sent to ICU emergently in case she decompensated further ABG with respiratory alkalosis with CO2 of 22 patient calmed down and she was titrated down to 2L via mask and saturations were in the 90's sent for CT chest, no evidence for PE, no ground glass opacities like prior imagine in recent past she was treated for possible chemotherapy induced pneumonitis vs multifocal pneumonia no clear evidence of this respiratory distress may have just been severe panic attack since it resolved on its own will transfer back to medical floor tomorrow (2) Hypokalemia: coming up with IV replacement last check it was 3.1, continue 40mEq in IV fluids due to GI losses with vomiting and poor oral intake (3) Vomiting: unclear etiology, does have some thickening of the distal esophagus on CT chest add Protonix IV Zofran PRN (4) Malignant neoplasm of upper-outer quadrant of right breast in female, estrogen receptor positive: [email or web address] and she has received radiation therapy as well (5) Breast cancer: (6) Depression: continue on Fluoxetine (7) DM II (diabetes mellitus, type II), controlled: continue Novolog SS, diabetic diet once eating better holding oral agents Subjective called to patient's room around 945 am, in a lot of respiratory distress all of a sudden patient was breathing about 40 times a minute, taking incomplete shallow breaths , HR in the 130-140's patient c/o chills and sweats, visibly shaking had several episodes of intense nausea and dry heaves, never vomited she denied any chest pain or cough she admitted to some pain in right leg, reviewed imaging and the doppler was negative for DVT in right leg she was 66% on 2L NC and placed on NRB, saturations slowly came up to 99% ABG showed respiratory alkalosis with PCO2 22 and HCO3 14 suggesting a concurrent metabolic acidosis PaO2 was 81 d/w Dr. Hall, will try vasiliy BIPAP to ease work of breathing plan to check EKG and CT chest PE protocol to r/o PE, check troponin and CBC Labs already done this morning: K coming up to 3.1 from 2.9, K running in IV fluids HCO3 was 25 at 654 and now on ABG it was low at 14 Cr stable at 0.93 CT PE protocol was negative for PE, no acute process going on in the lungs patient stabilized quickly once transferred to the ICU Review of Systems Review of Systems: All systems reviewed & are unremarkable except as noted in HPI & below Constitutional: + chills, + sweats, + fatigue and + weakness; no fever Respiratory: + dyspnea and + dyspnea on exertion; no cough, no hemoptysis, no sputum production and no wheezing Cardiovascular: + dyspnea, + dyspnea at rest and + lightheadedness; no chest pain, no dyspnea on exertion, no palpitations, no syncope and no edema Gastrointestinal: + belching, + nausea and + vomiting; no abdominal pain, no constipation and no diarrhea/loose stools Genitourinary: no dysuria Musculoskeletal: + muscle weakness Psychiatric: + anxiety Physical Exam Constitutional: well developed, + acute distress (respiratory), + ill appearing and + obese Eyes: PERRL, conjunctivae normal, anicteric sclerae ENMT: external ear and nose normal, oropharynx normal Neck: trachea midline, no thyromegaly Respiratory: + respiratory distress, + labored breathing, + uses accessory muscles and + tachypneic; + not able to speak in complete sentence Auscultation: lungs clear to auscultation bilaterally Cardiovascular: Rate/Rhythm: regular rhythm and + tachycardic Heart Sounds: normal S1 and normal S2; no murmur and no cardiac rub Vessels: no JVD Extremities: normal capillary refill; no edema Gastrointestinal (Abdomen): normal bowel sounds, soft, nontender, no hepatosplenomegaly Musculoskeletal: no cyanosis or clubbing, extremities motor strength 5/5 Skin: no rashes, warm and dry Neurologic: patellar DTR's 2+ bilat, sensation intact and PERRL, EOMI, accommodation nl, no face palsy, no dysarthria Psychiatric: Orientation: alert and oriented x 3 Affect: + anxious affect Lymphatic: no cervical or axillary lymphadenopathy Results & Data Vital Signs (Past 12 Hours) Vital Signs Temp Pulse Pulse Pulse Resp BP BP 09/03/18 07:00 37.0 C 94 H 19 124/67 09/03/18 05:51 37.1 C 90 16 128/71 09/03/18 05:00 112 H 16 116/53 L 09/03/18 04:30 37.2 C 118 H 18 135/63 09/03/18 04:23 107 H 16 09/03/18 03:02 117 H 16 09/03/18 03:00 116 H 21 167/79 H 09/03/18 02:59 116 H 23 162/99 H 09/03/18 02:52 38.9 C H 09/03/18 02:30 110 H 27 H 09/03/18 02:01 108 H 23 152/69 H 09/03/18 02:00 113 H 28 H 09/03/18 01:38 118 H 21 09/03/18 01:00 105 H 23 138/82 09/03/18 00:36 113 H 20 09/03/18 00:00 106 H 22 163/81 H 09/02/18 23:30 108 H 20 09/02/18 23:17 09/02/18 23:06 09/02/18 23:04 110 H 28 H 09/02/18 23:02 110 H 17 152/101 H 09/02/18 22:40 37 C 109 H 20 152/101 H Pulse Ox 09/03/18 07:00 97 09/03/18 05:51 94 09/03/18 05:00 97 09/03/18 04:30 93 09/03/18 04:23 97 09/03/18 03:02 09/03/18 03:00 97 09/03/18 02:59 98 09/03/18 02:52 09/03/18 02:30 97 09/03/18 02:01 98 09/03/18 02:00 97 09/03/18 01:38 09/03/18 01:00 93 09/03/18 00:36 09/03/18 00:00 94 09/02/18 23:30 97 09/02/18 23:17 96 09/02/18 23:06 96 09/02/18 23:04 96 09/02/18 23:02 97 09/02/18 22:40 96 Laboratory Results Laboratory Results - last 24 hr 09/02/18 09/03/18 09/03/18 23:29 00:14 00:14 WBC 6.82 RBC 3.31 L Hgb 10.3 L Hct 29.6 L MCV 89.4 MCH 31.1 MCHC 34.8 RDW Std Deviation 53.4 H RDW Coeff of Rosa 16.3 H Plt Count 104 L MPV 8.7 Immature Gran % (Auto) 0.4 Neut % (Auto) 89.1 Lymph % (Auto) 5.4 [place] % (Auto) 5.0 Eos % (Auto) 0.0 Baso % (Auto) 0.1 Immature Gran # (Auto) 0.03 H Neut # (Auto) 6.07 Lymph # (Auto) 0.37 L [place] # (Auto) 0.34 Eos # (Auto) 0.00 Baso # (Auto) 0.01 PT INR Sample Site POC pH POC pCO2 POC pO2 POC HCO3 POC Total CO2 POC Base Excess POC ABG O2 Sat You Test O2 Delivery Device Sodium 133 L Potassium 2.9 L Chloride 99 Carbon Dioxide 25 Anion Gap 9.0 BUN 11 Creatinine 0.98 Est Cr Clr Drug Dosing 68.5 Est GFR ( Amer) 72.2 Est GFR (Non-Af Amer) 62.3 BUN/Creatinine Ratio 10.7 Glucose 261 H POC Glucose 299 H Lactate Calcium 8.2 L Magnesium 1.8 Total Bilirubin 1.3 H AST 25 ALT 24 Alkaline Phosphatase 81 Troponin I Total Protein 6.1 L Albumin 2.8 L Globulin 3.3 Albumin/Globulin Ratio 0.8 L Lipase 40 L Urine Color Urine Appearance Urine pH Ur Specific [place] Urine Protein Urine Glucose (UA) Urine Ketones Urine Blood Urine Nitrite Urine Bilirubin Urine Urobilinogen Ur Leukocyte Esterase Urine WBC (Auto) Urine RBC (Auto) U Hyaline Cast (Auto) U Epithel Cells (Auto) Urine Bacteria (Auto) Nasal Screen MRSA (PCR) 09/03/18 09/03/18 09/03/18 03:50 04:40 06:54 WBC RBC Hgb Hct MCV MCH MCHC RDW Std Deviation RDW Coeff of [place] Plt Count MPV Immature Gran % (Auto) Neut % (Auto) Lymph % (Auto) [place] % (Auto) Eos % (Auto) Baso % (Auto) Immature Gran # (Auto) Neut # (Auto) Lymph # (Auto) [place] # (Auto) Eos # (Auto) Baso # (Auto) PT 11.9 INR 1.2 H Sample Site POC pH POC pCO2 POC pO2 POC HCO3 POC Total CO2 POC Base Excess POC ABG O2 Sat You Test O2 Delivery Device Sodium Potassium Chloride Carbon Dioxide Anion Gap BUN Creatinine Est Cr Clr Drug Dosing Est GFR ( Amer) Est GFR (Non-Af Amer) BUN/Creatinine Ratio Glucose POC Glucose Lactate 1.2 Calcium Magnesium Total Bilirubin AST ALT Alkaline Phosphatase Troponin I Total Protein Albumin Globulin Albumin/Globulin Ratio Lipase Urine Color Dark Yellow Urine Appearance Cloudy A Urine pH 5.0 Ur Specific [place] 1.021 Urine Protein 1+ H Urine Glucose (UA) 3+ H Urine Ketones 2+ H Urine Blood 2+ H Urine Nitrite Positive A Urine Bilirubin Negative Urine Urobilinogen Negative Ur Leukocyte Esterase 2+ H Urine WBC (Auto) >30 H Urine RBC (Auto) 0-4 U Hyaline Cast (Auto) 0 U Epithel Cells (Auto) 20-30 H Urine Bacteria (Auto) 2+ H Nasal Screen MRSA (PCR) 09/03/18 09/03/18 09/03/18 06:54 06:54 08:27 WBC 5.78 RBC 2.87 L Hgb 9.0 L Hct 25.6 L MCV 89.2 MCH 31.4 MCHC 35.2 RDW Std Deviation 52.9 H RDW Coeff of Rosa 16.3 H Plt Count 105 L MPV 8.9 Immature Gran % (Auto) 0.5 Neut % (Auto) 87.7 Lymph % (Auto) 5.0 [place] % (Auto) 6.6 Eos % (Auto) 0.0 Baso % (Auto) 0.2 Immature Gran # (Auto) 0.03 H Neut # (Auto) 5.07 Lymph # (Auto) 0.29 L [place] # (Auto) 0.38 Eos # (Auto) 0.00 Baso # (Auto) 0.01 PT INR Sample Site POC pH POC pCO2 POC pO2 POC HCO3 POC Total CO2 POC Base Excess POC ABG O2 Sat You Test O2 Delivery Device Sodium 137 Potassium 3.1 L Chloride 104 Carbon Dioxide 25 Anion Gap 8.0 BUN 10 Creatinine 0.93 Est Cr Clr Drug Dosing 72.1 Est GFR ( Amer) 76.9 Est GFR (Non-Af Amer) 66.3 BUN/Creatinine Ratio 11.0 Glucose 258 H POC Glucose 278 H Lactate Calcium 7.5 L Magnesium Total Bilirubin AST ALT Alkaline Phosphatase Troponin I Total Protein Albumin Globulin Albumin/Globulin Ratio Lipase Urine Color Urine Appearance Urine pH Ur Specific [place] Urine Protein Urine Glucose (UA) Urine Ketones Urine Blood Urine Nitrite Urine Bilirubin Urine Urobilinogen Ur Leukocyte Esterase Urine WBC (Auto) Urine RBC (Auto) U Hyaline Cast (Auto) U Epithel Cells (Auto) Urine Bacteria (Auto) Nasal Screen MRSA (PCR) 09/03/18 09/03/18 09/03/18 10:30 10:36 11:06 WBC RBC Hgb Hct MCV MCH MCHC RDW Std Deviation RDW Coeff of Rosa Plt Count MPV Immature Gran % (Auto) Neut % (Auto) Lymph % (Auto) [place] % (Auto) Eos % (Auto) Baso % (Auto) Immature Gran # (Auto) Neut # (Auto) Lymph # (Auto) [place] # (Auto) Eos # (Auto) Baso # (Auto) PT INR Sample Site L Radial POC pH 7.42 POC pCO2 22 L POC pO2 81 POC HCO3 15 L POC Total CO2 15 L POC Base Excess -10.0 L POC ABG O2 Sat 96.0 H You Test Pass O2 Delivery Device SimpleMask Sodium Potassium Chloride Carbon Dioxide Anion Gap BUN Creatinine Est Cr Clr Drug Dosing Est GFR ( Amer) Est GFR (Non-Af Amer) BUN/Creatinine Ratio Glucose POC Glucose Lactate Calcium Magnesium Total Bilirubin AST ALT Alkaline Phosphatase Troponin I 0.248 H* Total Protein Albumin Globulin Albumin/Globulin Ratio Lipase Urine Color Urine Appearance Urine pH Ur Specific [place] Urine Protein Urine Glucose (UA) Urine Ketones Urine Blood Urine Nitrite Urine Bilirubin Urine Urobilinogen Ur Leukocyte Esterase Urine WBC (Auto) Urine RBC (Auto) U Hyaline Cast (Auto) U Epithel Cells (Auto) Urine Bacteria (Auto) Nasal Screen MRSA (PCR) Negative 09/03/18 09/03/18 09/03/18 12:06 12:07 14:02 WBC RBC Hgb Hct MCV MCH MCHC RDW Std Deviation RDW Coeff of [place] Plt Count MPV Immature Gran % (Auto) Neut % (Auto) Lymph % (Auto) [place] % (Auto) Eos % (Auto) Baso % (Auto) Immature Gran # (Auto) Neut # (Auto) Lymph # (Auto) [place] # (Auto) Eos # (Auto) Baso # (Auto) PT INR Sample Site POC pH POC pCO2 POC pO2 POC HCO3 POC Total CO2 POC Base Excess POC ABG O2 Sat You Test O2 Delivery Device Sodium Potassium Chloride Carbon Dioxide Anion Gap BUN Creatinine Est Cr Clr Drug Dosing Est GFR ( Amer) Est GFR (Non-Af Amer) BUN/Creatinine Ratio Glucose POC Glucose 313 H* 330 H* 261 H Lactate Calcium Magnesium Total Bilirubin AST ALT Alkaline Phosphatase Troponin I Total Protein Albumin Globulin Albumin/Globulin Ratio Lipase Urine Color Urine Appearance Urine pH Ur Specific [place] Urine Protein Urine Glucose (UA) Urine Ketones Urine Blood Urine Nitrite Urine Bilirubin Urine Urobilinogen Ur Leukocyte Esterase Urine WBC (Auto) Urine RBC (Auto) U Hyaline Cast (Auto) U Epithel Cells (Auto) Urine Bacteria (Auto) Nasal Screen MRSA (PCR) 09/03/18 09/03/18 09/03/18 14:57 16:20 17:33 WBC RBC Hgb Hct MCV MCH MCHC RDW Std Deviation RDW Coeff of Rosa Plt Count MPV Immature Gran % (Auto) Neut % (Auto) Lymph % (Auto) [place] % (Auto) Eos % (Auto) Baso % (Auto) Immature Gran # (Auto) Neut # (Auto) Lymph # (Auto) [place] # (Auto) Eos # (Auto) Baso # (Auto) PT INR Sample Site POC pH POC pCO2 POC pO2 POC HCO3 POC Total CO2 POC Base Excess POC ABG O2 Sat You Test O2 Delivery Device Sodium Potassium Chloride Carbon Dioxide Anion Gap BUN Creatinine Est Cr Clr Drug Dosing Est GFR ( Amer) Est GFR (Non-Af Amer) BUN/Creatinine Ratio Glucose POC Glucose 218 H 192 H 169 H Lactate Calcium Magnesium Total Bilirubin AST ALT Alkaline Phosphatase Troponin I Total Protein Albumin Globulin Albumin/Globulin Ratio Lipase Urine Color Urine Appearance Urine pH Ur Specific [place] Urine Protein Urine Glucose (UA) Urine Ketones Urine Blood Urine Nitrite Urine Bilirubin Urine Urobilinogen Ur Leukocyte Esterase Urine WBC (Auto) Urine RBC (Auto) U Hyaline Cast (Auto) U Epithel Cells (Auto) Urine Bacteria (Auto) Nasal Screen MRSA (PCR) 09/03/18 18:37 WBC RBC Hgb Hct MCV MCH MCHC RDW Std Deviation RDW Coeff of Rosa Plt Count MPV Immature Gran % (Auto) Neut % (Auto) Lymph % (Auto) [place] % (Auto) Eos % (Auto) Baso % (Auto) Immature Gran # (Auto) Neut # (Auto) Lymph # (Auto) [place] # (Auto) Eos # (Auto) Baso # (Auto) PT INR Sample Site POC pH POC pCO2 POC pO2 POC HCO3 POC Total CO2 POC Base Excess POC ABG O2 Sat You Test O2 Delivery Device Sodium Potassium Chloride Carbon Dioxide Anion Gap BUN Creatinine Est Cr Clr Drug Dosing Est GFR ( Amer) Est GFR (Non-Af Amer) BUN/Creatinine Ratio Glucose POC Glucose 150 H Lactate Calcium Magnesium Total Bilirubin AST ALT Alkaline Phosphatase Troponin I Total Protein Albumin Globulin Albumin/Globulin Ratio Lipase Urine Color Urine Appearance Urine pH Ur Specific [place] Urine Protein Urine Glucose (UA) Urine Ketones Urine Blood Urine Nitrite Urine Bilirubin Urine Urobilinogen Ur Leukocyte Esterase Urine WBC (Auto) Urine RBC (Auto) U Hyaline Cast (Auto) U Epithel Cells (Auto) Urine Bacteria (Auto) Nasal Screen MRSA (PCR) Diagnostic Findings CT CHEST PE PROTOCOL IMPRESSION: 1. No evidence for pulmonary embolus. 2. Mild interstitial pulmonary edema. 3. Mild diffuse thickening of the esophageal wall. This is progressed and likely represents a nonspecific esophagitis. PG Critical Care Time Critical Care Time: Yes Total Critical Care Time: 35 Prolonged Care Time Prolonged Care Time: No (1) Vomiting Nausea presence: with nausea Vomiting Intractability: unspecified Vomiting type: unspecified Qualified Code(s): R11.2 - Nausea with vomiting, unspecified (2) Breast cancer Breast location: unspecified site of breast Estrogen receptor status: unspecified Laterality: unspecified laterality Patient sex: female Qualified Code(s): C50.919 - Malignant neoplasm of unspecified site of unspecified female breast
[2018-09-03 10:48] LABS: iSTAT Allen Test Pass; iSTAT Arterial Blood Gas HCO3 15 meg/L (19-24); iSTAT Arterial Blood Gas pCO2 22 mmHg (35-46); iSTAT Arterial Blood Gas pH 7.42 (7.35-7.45); iSTAT Carbon Dioxide 15 mEq/l (24-31); iSTAT Site L Radial
[2018-09-03] MEDS: PIPERACILLIN/TAZOBACTAM 4.5 GM in DEXTROSE 5% 100 ML IV SCH ×2 (10:49→18:17)
[2018-09-03] MEDS: HEPARIN 100 UNIT/ML 5ML FLUSH FLUSH SCH (10:49)
[2018-09-03 11:05] LABS: Basophils # (auto) 0.01 K/uL (0-0.2); Basophils % (auto) 0.2 %; Hematocrit (blood only) 25.6 % (37-47); Immature Granulocytes # (auto) 0.03 K/uL (0.00-0.02); Immature Granulocytes % (auto) 0.5 %; Lymphocytes # (auto) 0.29 K/uL (1.2-3.4); Mean Corpuscular Volume 89.2 fL (80-100); Mean Platelet Volume 8.9 fL (7.4-10.4); Monocytes # (auto) 0.38 K/uL (0.11-0.59); Monocytes % (auto) 6.6 %; Neutrophils # (auto) 5.07 K/uL (1.4-6.5); Neutrophils % (auto) 87.7 %; Platelet Count 105 K/uL (130-400); RDW Coefficient of Variation 16.3 % (11.5-14.5); RDW Standard Deviation 52.9 fL (36.4-46.3); Red Blood Count 2.87 M/uL (4.2-5.4); White Blood Count 5.78 K/uL (4.8-10.8)
[2018-09-03 11:19] LABS: Mean Corpuscular Hgb Conc 35.2 g/dL (32-36)
--- NOTE | 2018-09-03 11:31 | Critical Care Consultation ---
Date of Consultation September 03, 2018 Assessment & Plan (1) Malignant neoplasm of upper-outer quadrant of right breast in female, estrogen receptor positive: Patient has history of possible drug-induced pneumonitis from chemotherapy. (2) Acute respiratory failure with hypoxia: She is febrile but mildly pancytopenic. She has diffusely increased markings on chest x-ray consistent with possible hydrostatic versus non- hydrostatic pulmonary edema no known history of lung metastasis from her breast cancer. - -We will add Levaquin for atypical coverage -Obtain echocardiogram and CT angiogram of the chest -Dyspnea and respiratory distress improved significantly so I do not think we need to add BiPAP at this point. -Case discussed with Dr. Nunez History of Present Illness Reason for Consultation: Tachypnea and respiratory distress Requesting Physician: Dr. Nunez Attending Physician: Chencho Nunez, History of Present Illness 63-year-old woman with a history of breast cancer diagnosed July 2017 status post double mastectomy with positive margins. Patient was receiving chemotherapy and received 8 of planned 12 treatments however she was admitted to the hospital in June with respiratory distress and evidence of pneumonitis and it was felt that she might have developed a chemical pneumonitis response to chemotherapy so chemotherapy was suspended and she was to begin radiation treatments. She was in her usual state of health until yesterday when she began to experience increasing and a cough scantily productive of some yellowish sputum. She went to the emergency room and was admitted and started on antibiotics. Overnight she was febrile and this morning she experienced sudden worsening of her dyspnea and was hypoxic on nasal cannula and so was transferred to ICU. She is currently breathing comfortably on a simple mask with saturations in the upper 90s. Chest x-ray on admission she suggests mild pulmonary vascular congestion. Echocardiogram during her last admission showed normal LV function. She has yet to commence radiation therapy. Allergies Allergy/AdvReac Type Severity Reaction Status Date / Time adhesive Allergy Unknown "BLISTERS Verified 09/03/18 00:31 AND PULLS MY SKIN OFF" codeine AdvReac Mild Nausea Verified 09/03/18 00:31 erythromycin base AdvReac Unknown STOMACH Verified 09/03/18 00:31 PAIN indomethacin AdvReac Unknown "THINS Verified 09/03/18 00:31 BLOOD OUT TOO MUCH" valacyclovir [From Valtrex] AdvReac Unknown Palpitation Verified 09/03/18 00:31 s Home Medications Home Medications Medication Instructions Recorded Confirmed Type aspirin [Aspir-81] 81 mg PO QAM 01/15/18 09/03/18 History meclizine 25 mg PO DAILY PRN 01/15/18 09/03/18 History cholecalciferol (vitamin D3) 2,000 unit PO DAILY 02/23/18 09/03/18 History [Vitamin D3] cyanocobalamin (vit B-12) 1,000 0 mcg PO .TAKE 1 TABLET DAILY tab 08/30/18 09/03/18 History mcg tablet fluoxetine 40 mg capsule 40 mg PO QAM #90 cap 08/30/18 09/03/18 Rx gabapentin 100 mg capsule 200 mg PO TID #180 cap 08/30/18 09/03/18 Rx insulin aspart (U-100) 100 unit/mL See Rx Instructions SQ TID #15 ml 08/30/18 09/03/18 Rx (3 mL) subcutaneous pen ipratropium-albuterol 0.5 mg-3 3 ml INH Q4H PRN #180 ml 08/30/18 09/03/18 Rx mg(2.5 mg base)/3 mL nebulization soln levothyroxine 25 mcg tablet 25 mcg PO DAILY #30 tab 08/30/18 09/03/18 Rx losartan 100 1 tab PO DAILY #30 tab 08/30/18 09/03/18 Rx mg-hydrochlorothiazide 25 mg tablet metformin 1,000 mg tablet 1,000 mg PO BID #60 tab 08/30/18 09/03/18 Rx metoprolol succinate ER 25 mg 25 mg PO DAILY #30 tab 08/30/18 09/03/18 Rx tablet,extended release 24 hr omega-3 acid ethyl esters 1 gram 2 g PO DAILY cap 08/30/18 09/03/18 History capsule insulin degludec (U-200) 200 68 units SUBCUT DAILY ml 09/01/18 09/03/18 History unit/mL (3 mL) subcutaneous pen levothyroxine 200 mcg tablet 200 mcg PO QAM tab 09/01/18 09/03/18 History Patient History Medical History Pneumonia (Acute) hospitalization in June 2018 Morbid obesity (Acute) Anxiety PANIC ATTACKS Cancer BREAST CANCER-RIGHT SIDE Degenerative disc disease Depression Diabetes mellitus, type 2 INSULIN/ORAL MEDS- Diabetes mellitus, type 2 Fatty liver GERD (gastroesophageal reflux disease) History of recent steroid use Hx of breast cancer HX OF BILATERAL MASTECTOMY NOV 2017. 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 DO NOT USE RIGHT ARM History of tonsillectomy Family History Mother Family history of diabetes mellitus Heart disease Hypertension Father , age 57 Heart disease Hodgkin disease Sister Hypertension Daughter Colonic polyp Daughter Appendiceal carcinoid tumor had surgery age 22 / no other treatment Abnormal breast exam, Onset Age: 31 mammogram scheduled for 09-18-18 spots , 1 in each breast Aunt Gallbladder cancer, carcinoma Family/Other Breast cancer cousin Social History Preferred Language: Ukrainian Communication Ability: Effective Visual Impairment: No Limitations Hearing Ability: Normal Beliefs That Will Affect Care: None marital status: Current Living Situation: Spouse current occupational status: retired 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 Other Information That Helps Us Care for You: No Feels Safe at Home: Yes Safety Concerns: Feels Safe At This Time Smoking Status: Former smoker Tobacco Type: cigarettes Age Started Using Tobacco: 19 packs per day: 1.5 Cigarettes Per Day: HX OF 1.5 PPD X 10 YEARS (STARTED OUT AT ABOUT 1/2 PPD) Second Hand Exposure: Yes Hx Alcohol Use: Yes Alcohol type: hard liquor Alcohol Intake Frequency Comment: drinks socially Hx Substance Use: No Review of Systems Review of Systems: All systems reviewed & are unremarkable except as noted in HPI & below Physical Exam Physical Exam: Patient is awake alert, does not appear distressed, able to speak in full sentences Head normocephalic atraumatic with alopecia Ritesh EOMI sclera anicteric Neck supple no JVD adenopathy or bruits trachea midline Chest breath sounds distant due to body habitus with a few faint crackles at the bases, no wheezing no signs of focal consolidation Cardiac regular rhythm no murmurs rubs gallops Abdomen obese soft nontender no masses no organomegaly normoactive bowel sounds Extremities trace edema no cyanosis no clubbing Neuro nonfocal Results & Data Vital Signs (Past 12 Hours) Vital Signs Temp Pulse Pulse Pulse Resp BP BP 09/03/18 09:45 140 H 36 H 09/03/18 07:00 37.0 C 94 H 19 124/67 09/03/18 05:51 37.1 C 90 16 128/71 09/03/18 05:00 112 H 16 116/53 L 09/03/18 04:30 37.2 C 118 H 18 135/63 09/03/18 04:23 107 H 16 09/03/18 03:02 117 H 16 09/03/18 03:00 116 H 21 167/79 H 09/03/18 02:59 116 H 23 162/99 H 09/03/18 02:52 38.9 C H 09/03/18 02:30 110 H 27 H 09/03/18 02:01 108 H 23 152/69 H 09/03/18 02:00 113 H 28 H 09/03/18 01:38 118 H 21 09/03/18 01:00 105 H 23 138/82 09/03/18 00:36 113 H 20 09/03/18 00:00 106 H 22 163/81 H 09/02/18 23:30 108 H 20 Pulse Ox 09/03/18 09:45 88 L 09/03/18 07:00 97 09/03/18 05:51 94 09/03/18 05:00 97 09/03/18 04:30 93 09/03/18 04:23 97 09/03/18 03:02 09/03/18 03:00 97 09/03/18 02:59 98 09/03/18 02:52 09/03/18 02:30 97 09/03/18 02:01 98 09/03/18 02:00 97 09/03/18 01:38 09/03/18 01:00 93 09/03/18 00:36 09/03/18 00:00 94 09/02/18 23:30 97 Laboratory Results 09/03/18 09/03/1819 Range/Units 11:06 10:36 08:27 WBC (4.8-10.8) K/uL RBC (4.2-5.4) M/uL Hgb (12.0-16.0) g/dL Hct (37-47) % MCV (80-100) fL MCH (25-34) pg MCHC (32-36) g/dL RDW Std Deviation (36.4-46.3) fL RDW Coeff of Rosa (11.5-14.5) % Plt Count (130-400) K/uL MPV (7.4-10.4) fL Immature Gran % (Auto) % Neut % (Auto) % Lymph % (Auto) % Faulkner % (Auto) % Eos % (Auto) % Baso % (Auto) % Immature Gran # (Auto) (0.00-0.02) K/uL Neut # (Auto) (1.4-6.5) K/uL Lymph # (Auto) (1.2-3.4) K/uL Faulkner # (Auto) (0.11-0.59) K/uL Eos # (Auto) (0-0.5) K/uL Baso # (Auto) (0-0.2) K/uL PT (9.0-12.0) Seconds INR (0.9-1.1) Sample Site L Radial POC pH 7.42 (7.35-7.45) POC pCO2 22 L (35-46) mmHg POC pO2 81 (80-95) mmHg POC HCO3 15 L (19-24) shavon/L POC Total CO2 15 L (24-31) mEq/l POC Base Excess -10.0 L (-9-1.8) shavon/L POC ABG O2 Sat 96.0 H (90-95) % You Test Pass O2 Delivery Device SimpleMask Sodium (136-145) mmol/L Potassium (3.5-5.1) mmol/L Chloride (98-107) mmol/L Carbon Dioxide (21-32) mmol/L Anion Gap (3-11) BUN (7-18) mg/dl Creatinine (0.6-1.2) mg/dl Est Cr Clr Drug Dosing ml/min Est GFR ( Amer) Est GFR (Non-Af Amer) BUN/Creatinine Ratio (10-20) Glucose (70-99) mg/dl POC Glucose 278 H (70-99) Lactate (0.4-2.0) mmol/L Calcium (8.5-10.1) mg/dl Magnesium (1.8-2.4) mg/dl Total Bilirubin (0.2-1) mg/dl AST (15-37) U/L ALT (12-78) U/L Alkaline Phosphatase (45-117) U/L Troponin I Pending Total Protein (6.4-8.2) gm/dl Albumin (3.4-5.0) gm/dl Globulin (2.5-4.0) gm/dl Albumin/Globulin Ratio (0.9-2) Lipase (73-393) U/L Urine Color Urine Appearance (Clear) Urine pH (4.5-7.5) Ur Specific [place] (1.000-1.030) Urine Protein (Negative) Urine Glucose (UA) (Negative) Urine Ketones (Negative) Urine Blood (Negative) Urine Nitrite (Negative) Urine Bilirubin (Negative) Urine Urobilinogen (Negative) Ur Leukocyte Esterase (Negative) Urine WBC (Auto) (0-5) /hpf Urine RBC (Auto) (0-4) /hpf U Hyaline Cast (Auto) (0-5) /lpf U Epithel Cells (Auto) (0-5) /lpf Urine Bacteria (Auto) (Negative) 09/03/18 09/03/18 09/03/18 Range/Units 06:54 06:54 06:54 WBC 5.78 (4.8-10.8) K/uL RBC 2.87 L (4.2-5.4) M/uL Hgb 9.0 L (12.0-16.0) g/dL Hct 25.6 L (37-47) % MCV 89.2 (80-100) fL MCH 31.4 (25-34) pg MCHC 35.2 (32-36) g/dL RDW Std Deviation 52.9 H (36.4-46.3) fL RDW Coeff of Rosa 16.3 H (11.5-14.5) % Plt Count 105 L (130-400) K/uL MPV 8.9 (7.4-10.4) fL Immature Gran % (Auto) 0.5 % Neut % (Auto) 87.7 % Lymph % (Auto) 5.0 % Faulkner % (Auto) 6.6 % Eos % (Auto) 0.0 % Baso % (Auto) 0.2 % Immature Gran # (Auto) 0.03 H (0.00-0.02) K/uL Neut # (Auto) 5.07 (1.4-6.5) K/uL Lymph # (Auto) 0.29 L (1.2-3.4) K/uL Faulkner # (Auto) 0.38 (0.11-0.59) K/uL Eos # (Auto) 0.00 (0-0.5) K/uL Baso # (Auto) 0.01 (0-0.2) K/uL PT 11.9 (9.0-12.0) Seconds INR 1.2 H (0.9-1.1) Sample Site POC pH (7.35-7.45) POC pCO2 (35-46) mmHg POC pO2 (80-95) mmHg POC HCO3 (19-24) shavon/L POC Total CO2 (24-31) mEq/l POC Base Excess (-9-1.8) shavon/L POC ABG O2 Sat (90-95) % You Test O2 Delivery Device Sodium 137 (136-145) mmol/L Potassium 3.1 L (3.5-5.1) mmol/L Chloride 104 (98-107) mmol/L Carbon Dioxide 25 (21-32) mmol/L Anion Gap 8.0 (3-11) BUN 10 (7-18) mg/dl Creatinine 0.93 (0.6-1.2) mg/dl Est Cr Clr Drug Dosing 72.1 ml/min Est GFR ( Amer) 76.9 Est GFR (Non-Af Amer) 66.3 BUN/Creatinine Ratio 11.0 (10-20) Glucose 258 H (70-99) mg/dl POC Glucose (70-99) Lactate (0.4-2.0) mmol/L Calcium 7.5 L (8.5-10.1) mg/dl Magnesium (1.8-2.4) mg/dl Total Bilirubin (0.2-1) mg/dl AST (15-37) U/L ALT (12-78) U/L Alkaline Phosphatase (45-117) U/L Troponin I Total Protein (6.4-8.2) gm/dl Albumin (3.4-5.0) gm/dl Globulin (2.5-4.0) gm/dl Albumin/Globulin Ratio (0.9-2) Lipase (73-393) U/L Urine Color Urine Appearance (Clear) Urine pH (4.5-7.5) Ur Specific [place] (1.000-1.030) Urine Protein (Negative) Urine Glucose (UA) (Negative) Urine Ketones (Negative) Urine Blood (Negative) Urine Nitrite (Negative) Urine Bilirubin (Negative) Urine Urobilinogen (Negative) Ur Leukocyte Esterase (Negative) Urine WBC (Auto) (0-5) /hpf Urine RBC (Auto) (0-4) /hpf U Hyaline Cast (Auto) (0-5) /lpf U Epithel Cells (Auto) (0-5) /lpf Urine Bacteria (Auto) (Negative) 09/03/18 09/03/18 09/03/18 Range/Units 04:40 03:50 00:14 WBC (4.8-10.8) K/uL RBC (4.2-5.4) M/uL Hgb (12.0-16.0) g/dL Hct (37-47) % MCV (80-100) fL MCH (25-34) pg MCHC (32-36) g/dL RDW Std Deviation (36.4-46.3) fL RDW Coeff of Rosa (11.5-14.5) % Plt Count (130-400) K/uL MPV (7.4-10.4) fL Immature Gran % (Auto) % Neut % (Auto) % Lymph % (Auto) % Faulkner % (Auto) % Eos % (Auto) % Baso % (Auto) % Immature Gran # (Auto) (0.00-0.02) K/uL Neut # (Auto) (1.4-6.5) K/uL Lymph # (Auto) (1.2-3.4) K/uL Faulkner # (Auto) (0.11-0.59) K/uL Eos # (Auto) (0-0.5) K/uL Baso # (Auto) (0-0.2) K/uL PT (9.0-12.0) Seconds INR (0.9-1.1) Sample Site POC pH (7.35-7.45) POC pCO2 (35-46) mmHg POC pO2 (80-95) mmHg POC HCO3 (19-24) shavon/L POC Total CO2 (24-31) mEq/l POC Base Excess (-9-1.8) shavon/L POC ABG O2 Sat (90-95) % You Test O2 Delivery Device Sodium 133 L (136-145) mmol/L Potassium 2.9 L (3.5-5.1) mmol/L Chloride 99 (98-107) mmol/L Carbon Dioxide 25 (21-32) mmol/L Anion Gap 9.0 (3-11) BUN 11 (7-18) mg/dl Creatinine 0.98 (0.6-1.2) mg/dl Est Cr Clr Drug Dosing 68.5 ml/min Est GFR ( Amer) 72.2 Est GFR (Non-Af Amer) 62.3 BUN/Creatinine Ratio 10.7 (10-20) Glucose 261 H (70-99) mg/dl POC Glucose (70-99) Lactate 1.2 (0.4-2.0) mmol/L Calcium 8.2 L (8.5-10.1) mg/dl Magnesium 1.8 (1.8-2.4) mg/dl Total Bilirubin 1.3 H (0.2-1) mg/dl AST 25 (15-37) U/L ALT 24 (12-78) U/L Alkaline Phosphatase 81 (45-117) U/L Troponin I Total Protein 6.1 L (6.4-8.2) gm/dl Albumin 2.8 L (3.4-5.0) gm/dl Globulin 3.3 (2.5-4.0) gm/dl Albumin/Globulin Ratio 0.8 L (0.9-2) Lipase 40 L (73-393) U/L Urine Color Dark Yellow Urine Appearance Cloudy A (Clear) Urine pH 5.0 (4.5-7.5) Ur Specific [place] 1.021 (1.000-1.030) Urine Protein 1+ H (Negative) Urine Glucose (UA) 3+ H (Negative) Urine Ketones 2+ H (Negative) Urine Blood 2+ H (Negative) Urine Nitrite Positive A (Negative) Urine Bilirubin Negative (Negative) Urine Urobilinogen Negative (Negative) Ur Leukocyte Esterase 2+ H (Negative) Urine WBC (Auto) >30 H (0-5) /hpf Urine RBC (Auto) 0-4 (0-4) /hpf U Hyaline Cast (Auto) 0 (0-5) /lpf U Epithel Cells (Auto) 20-30 H (0-5) /lpf Urine Bacteria (Auto) 2+ H (Negative) 09/03/18 09/02/18 Range/Units 00:14 23:29 WBC 6.82 (4.8-10.8) K/uL RBC 3.31 L (4.2-5.4) M/uL Hgb 10.3 L (12.0-16.0) g/dL Hct 29.6 L (37-47) % MCV 89.4 (80-100) fL MCH 31.1 (25-34) pg MCHC 34.8 (32-36) g/dL RDW Std Deviation 53.4 H (36.4-46.3) fL RDW Coeff of Rosa 16.3 H (11.5-14.5) % Plt Count 104 L (130-400) K/uL MPV 8.7 (7.4-10.4) fL Immature Gran % (Auto) 0.4 % Neut % (Auto) 89.1 % Lymph % (Auto) 5.4 % Faulkner % (Auto) 5.0 % Eos % (Auto) 0.0 % Baso % (Auto) 0.1 % Immature Gran # (Auto) 0.03 H (0.00-0.02) K/uL Neut # (Auto) 6.07 (1.4-6.5) K/uL Lymph # (Auto) 0.37 L (1.2-3.4) K/uL Faulkner # (Auto) 0.34 (0.11-0.59) K/uL Eos # (Auto) 0.00 (0-0.5) K/uL Baso # (Auto) 0.01 (0-0.2) K/uL PT (9.0-12.0) Seconds INR (0.9-1.1) Sample Site POC pH (7.35-7.45) POC pCO2 (35-46) mmHg POC pO2 (80-95) mmHg POC HCO3 (19-24) shavon/L POC Total CO2 (24-31) mEq/l POC Base Excess (-9-1.8) shavon/L POC ABG O2 Sat (90-95) % You Test O2 Delivery Device Sodium (136-145) mmol/L Potassium (3.5-5.1) mmol/L Chloride (98-107) mmol/L Carbon Dioxide (21-32) mmol/L Anion Gap (3-11) BUN (7-18) mg/dl Creatinine (0.6-1.2) mg/dl Est Cr Clr Drug Dosing ml/min Est GFR ( Amer) Est GFR (Non-Af Amer) BUN/Creatinine Ratio (10-20) Glucose (70-99) mg/dl POC Glucose 299 H (70-99) Lactate (0.4-2.0) mmol/L Calcium (8.5-10.1) mg/dl Magnesium (1.8-2.4) mg/dl Total Bilirubin (0.2-1) mg/dl AST (15-37) U/L ALT (12-78) U/L Alkaline Phosphatase (45-117) U/L Troponin I Total Protein (6.4-8.2) gm/dl Albumin (3.4-5.0) gm/dl Globulin (2.5-4.0) gm/dl Albumin/Globulin Ratio (0.9-2) Lipase (73-393) U/L Urine Color Urine Appearance (Clear) Urine pH (4.5-7.5) Ur Specific Marathon (1.000-1.030) Urine Protein (Negative) Urine Glucose (UA) (Negative) Urine Ketones (Negative) Urine Blood (Negative) Urine Nitrite (Negative) Urine Bilirubin (Negative) Urine Urobilinogen (Negative) Ur Leukocyte Esterase (Negative) Urine WBC (Auto) (0-5) /hpf Urine RBC (Auto) (0-4) /hpf U Hyaline Cast (Auto) (0-5) /lpf U Epithel Cells (Auto) (0-5) /lpf Urine Bacteria (Auto) (Negative) Medications Administered Home Medications Medication Instructions Recorded Confirmed Last Taken aspirin [Aspir-81] 81 mg PO QAM 01/15/18 09/03/18 02/20/18 09:00 meclizine 25 mg PO DAILY PRN 01/15/18 09/03/18 Unknown cholecalciferol (vitamin D3) 2,000 unit PO DAILY 02/23/18 09/03/18 02/22/18 07:00 [Vitamin D3] cyanocobalamin (vit B-12) 1,000 0 mcg PO .TAKE 1 TABLET DAILY tab 08/30/18 09/03/18 Unknown mcg tablet fluoxetine 40 mg capsule 40 mg PO QAM #90 cap 08/30/18 09/03/18 Unknown gabapentin 100 mg capsule 200 mg PO TID #180 cap 08/30/18 09/03/18 Unknown insulin aspart (U-100) 100 unit/mL See Rx Instructions SQ TID #15 ml 08/30/18 09/03/18 Unknown (3 mL) subcutaneous pen ipratropium-albuterol 0.5 mg-3 3 ml INH Q4H PRN #180 ml 08/30/18 09/03/18 Unknown mg(2.5 mg base)/3 mL nebulization soln levothyroxine 25 mcg tablet 25 mcg PO DAILY #30 tab 08/30/18 09/03/18 Unknown losartan 100 1 tab PO DAILY #30 tab 08/30/18 09/03/18 Unknown mg-hydrochlorothiazide 25 mg tablet metformin 1,000 mg tablet 1,000 mg PO BID #60 tab 08/30/18 09/03/18 Unknown metoprolol succinate ER 25 mg 25 mg PO DAILY #30 tab 08/30/18 09/03/18 Unknown tablet,extended release 24 hr omega-3 acid ethyl esters 1 gram 2 g PO DAILY cap 08/30/18 09/03/18 Unknown capsule insulin degludec (U-200) 200 68 units SUBCUT DAILY ml 09/01/18 09/03/18 Unknown unit/mL (3 mL) subcutaneous pen levothyroxine 200 mcg tablet 200 mcg PO QAM tab 09/01/18 09/03/18 Unknown Active Medications Generic Name Dose Route Start Last Admin Trade Name Freq PRN Reason Stop Dose Admin Albuterol 3 ml 09/03/18 03:48 09/03/18 04:22 Duoneb INH 10/03/18 03:47 3 ml Q4H PRN Administration wheezing Enoxaparin Sodium 40 mg 09/03/18 09:00 09/03/18 08:31 Lovenox SQ 10/03/18 08:59 40 mg Q24H HETAL Administration Famotidine 20 mg 09/03/18 09:00 09/03/18 08:29 Pepcid PO 10/03/18 08:59 20 mg QAM HETAL Administration Gabapentin 200 mg 09/03/18 09:00 09/03/18 08:29 Neurontin PO 10/03/18 08:59 200 mg TID HETAL Administration Heparin Sodium (Porcine) 5 ml 09/03/18 07:30 09/03/18 10:49 Heparin Sod 100 Unit/Ml Flush FLUSH 10/03/18 07:29 Not Given PRN HETAL Piperacillin Sod/Tazobactam 120 mls @ 30 mls/hr 09/03/18 10:00 09/03/18 10:49 Sod 4.5 gm/ Dextrose IV 09/05/18 09:59 30 mls/hr Q8H HETAL Administration Protocol Potassium Chloride 40 meq/ 1,020 mls @ 100 mls/hr 09/03/18 08:00 09/03/18 08:28 Sodium Chloride IV 10/03/18 07:59 100 mls/hr .[id number] HETAL Administration Insulin Glargine 10 units 09/03/18 09:00 09/03/18 08:30 Lantus Solostar Pen SC 10/03/18 08:59 10 units BID HETAL Administration Metoprolol Succinate 25 mg 09/03/18 09:00 09/03/18 08:29 Toprol Xl PO 10/03/18 08:59 25 mg DAILY HETAL Administration Ondansetron HCl 4 mg 09/03/18 05:49 09/03/18 10:01 Zofran IV 10/03/18 05:48 4 mg Q6H PRN Administration Nausea
[2018-09-03] MEDS ORDERED: OPTIRAY 320 125ml IV PRN (11:44)
--- NOTE | 2018-09-03 12:11 | CT Scan Report ---
CHEST CTA for PULMONARY ARTERIES CT DOSE: 792.03 mGy.cm HISTORY: Shortness of breath. TECHNIQUE: Multiaxial CT images of the chest were performed following the intravenous administration of contrast to evaluate the pulmonary arteries. Maximal intensity projection images were also obtaine d. A dose lowering technique was utilized adhering to the principles of ALARA. COMPARISON STUDY: Chest CTA 07/17/2018. FINDINGS: Normal caliber thoracic aorta with no evidence for dissection. Redemonstration of the aberr ant right subclavian artery. The heart remains mildly enlarged. No pleural or pericardial effusions. Mild diffuse esophageal wall thickening. This has progressed in the interval. Slight increase in size in the single mildly enlarged distal periesophageal lymph node which measures 1 cm. Dense calcificat ion within the right hepatic lobe. Cholecystectomy. The visualized spleen is unremarkable. Mild thick ening of the left adrenal gland. No mediastinal or hilar lymphadenopathy. Subcutaneous soft tissue th ickening along the right axilla remains unchanged with this favors postoperative scarring. No axillar y lymphadenopathy. No suspicious lytic or blastic osseous lesions. Left subclavian Port-A-Cath termin ates in the distal SVC. No pneumothorax. The central airways are patent. Mild interlobular septal thi ckening, peribronchial thickening, and groundglass densities predominantly within the upper lobes. Th is represents pulmonary edema. This is most pronounced on the right. No filling defects within the pu lmonary arteries to suggest pulmonary embolus. IMPRESSION: 1. No evidence for pulmonary. 2. Mild interstitial pulmonary edema. 3. Mild diffuse thickening of the esophageal wall. This is progressed and likely represents a [facility] esophagitis. Electronically signed by: Alphonso Ridley M.D. 09/03/2018 12:10 PM
[2018-09-03] MEDS ORDERED: PHARMACY GLYCEMIC MGMT CONSULT SCH (12:14)
[2018-09-03] MEDS ORDERED: INSULIN PROTOCOL GOAL RANGE ONE (12:31)
[2018-09-03] MEDS ORDERED: MODERATE STRESS LEVEL ONE (12:31)
[2018-09-03] MEDS ORDERED: INSULIN GLARGINE SOLOSTAR 100 UNITS/ML 3 ML PEN SC ONE (12:45)
[2018-09-03] MEDS ORDERED: INSULIN REGULAR 250 UNITS in SODIUM CHLORIDE 0.9% 247.5 ML IV SCH (13:00)
[2018-09-03] MEDS ORDERED: NovoLIN-R BOLUS FROM BAG IV ONE (13:00)
--- NOTE | 2018-09-03 13:07 | Pharmacy Report ---
Pharmacy Abx Initial Consult - Date of Service September 03, 2018 - Pharmacy Dosing Scope Date of Consult: 09/03/18 Consultation requested by: Dr. [facility] is consulted to initiate Vanco & Zosyn IV dosing therapy, order appropriate labs and adjust drug dose/frequency. - Subjective The patient is a 63 year old F admitted on 09/03/18 04:00. - Objective Height: 4 ft 11 in Weight: 115 kg Vital Signs (Past 12hrs): Vital Signs Temp Pulse Pulse Pulse Resp BP BP 09/03/18 12:01 110 H 105/51 L 09/03/18 11:01 118 H 09/03/18 11:00 118 H 125/64 09/03/18 10:38 119 H 114/76 09/03/18 10:30 126 H 09/03/18 10:29 37.7 C H 120 H 137/84 09/03/18 10:28 120 H 127/77 09/03/18 09:45 140 H 36 H 09/03/18 07:00 37.0 C 94 H 19 124/67 09/03/18 05:51 37.1 C 90 16 128/71 09/03/18 05:00 112 H 16 116/53 L 09/03/18 04:30 37.2 C 118 H 18 135/63 09/03/18 04:23 107 H 16 09/03/18 03:02 117 H 16 09/03/18 03:00 116 H 21 167/79 H 09/03/18 02:59 116 H 23 162/99 H 09/03/18 02:52 38.9 C H 09/03/18 02:30 110 H 27 H 09/03/18 02:01 108 H 23 152/69 H 09/03/18 02:00 113 H 28 H 09/03/18 01:38 118 H 21 Pulse Ox 09/03/18 12:01 94 09/03/18 11:01 97 09/03/18 11:00 97 09/03/18 10:38 95 09/03/18 10:30 09/03/18 10:29 100 09/03/18 10:28 98 09/03/18 09:45 88 L 09/03/18 07:00 97 09/03/18 05:51 94 09/03/18 05:00 97 09/03/18 04:30 93 09/03/18 04:23 97 09/03/18 03:02 09/03/18 03:00 97 09/03/18 02:59 98 09/03/18 02:52 09/03/18 02:30 97 09/03/18 02:01 98 09/03/18 02:00 97 09/03/18 01:38 Lab Results (24hrs): Laboratory Tests (24 Hours) 09/03/18 09/03/18 09/03/18 06:54 06:54 00:14 WBC 5.78 Neut # (Auto) 5.07 Creatinine 0.93 0.98 Est Cr Clr Drug Dosing 72.1 68.5 09/03/18 00:14 WBC 6.82 Neut # (Auto) 6.07 Creatinine Est Cr Clr Drug Dosing Micro Results: 09/03/18 03:50 Urine Culture - Pending Urine,Straight Cath 09/03/18 03:27 Aerobic Blood Culture - Pending Blood Anaerobic Blood Culture - Pending 09/03/18 03:03 Aerobic Blood Culture - Pending Blood Anaerobic Blood Culture - Pending - Risk Factors for Resistance * Immunocompromised (chronic steroid therapy, chemotherapy, immunomodulators) * DM - Assessment & Plan Assessment 63 year old F initiated on empiric Vanco/Zosyn for respiratory failure. BMI > 35kg/m2 --> will need to dose on a lower mg/kg basis to prevent supratherapeutic trough levels Combination of Vanco/Zosyn can induce DEVORAH; will need to deescalate GUSTAVO Plan Vancomycin IV * Estimated PK Parameters: Vd 0.55 L/kg, Denis 0.04 hr-1, t1/2 17 hr * Loading dose: 2,750 mg (24 mg/kg) * Maintenance dose: 1,250 mg IV (11 mg/kg) every 14 hours - started dosing more aggressive than calc t1/2 d/t PK data from 06/2018 admission vanco dosing. * Goal trough level for pulmonary : 15 to 20 mcg/mL * Trough/Random level ordered for 09/05/18 @ 1130 (prior to the 4th maintenance dose d/t large Vd) * A less than traditional dose and/or extended dosing interval have been selected due to likelihood of drug accumulation in obese patient Piperacillin/tazobactam * 4.5 g bolus administered over 30 minutes, then 4.5 g IV extended infusion every 8 hours for CrCl greater than 20 mL/min * Aggressive dosing selected due to critically ill status & BMI 35 or more Pharmacy will continue to follow and will adjust dose/frequency as necessary. Thank you.
[2018-09-03] MEDS: INSULIN ASPART 100 UNITS/ML 3 ML PEN SC SCH ×5 (13:15→23:59)
--- NOTE | 2018-09-03 15:19 | Pharmacy Report ---
Pharmacy Glycemic Short Note 2 - Date of Service September 03, 2018 - Glycemic Short BSG Results (Last 24 hours): 09/02/18 09/03/18 09/03/18 23:29 00:14 06:54 Glucose 261 H 258 H POC Glucose 299 H 09/03/18 09/03/18 09/03/18 08:27 12:06 12:07 Glucose POC Glucose 278 H 313 H* 330 H* 09/03/18 14:02 Glucose POC Glucose 261 H OUTPATIENT ANTIDIABETIC REGIMEN: * Tresiba 68 units daily * Novolog 9 units qam, 13 units at lunch, 15 units at dinner * Metformin 1000 BID ASSESSMENT: * Patient hyperglycemic likely stressed from infection, with only 10 units of lantus ordered this morning. An insulin infusion was started at lunch time and an additional 40 units of lantus was given to aid drip transition. Discussed plan with physician and nurse. We will continue the insulin infusion until the infusion calculator indicates to stop. A lantus scale will be placed for this evening. Current insulin orders are reflective of NPO status. Orders may need to be adjusted if a diet is ordered. PLAN FOR INPATIENT GLYCEMIC CONTROL: * Hold outpatient oral diabetes medications * Basal insulin * Lantus 10 units SQ this morning followed by additional 40 units at lunch * Lantus scale for this evening based on BSG (10, 15, or 20 units-see protocol field in order) * Bolus insulin * NovoLog per scale PCHS while on drip * Goal Range: Low 110 mg/dL - High 180 mg/dL * Novolog orders should be altered if infusion transition successful PLAN FOR DISCHARGE: * A1c adequate, continue outpatient regimen
[2018-09-03] MEDS: VANCOMYCIN HCL 1,250 MG in SODIUM CHLORIDE 0.9% 250 ML IV SCH (17:42)
[2018-09-03] MEDS ORDERED: VANCOMYCIN HCL 1,250 MG in SODIUM CHLORIDE 0.9% 250 ML IV SCH (20:00)
[2018-09-04] MEDS: PIPERACILLIN/TAZOBACTAM 4.5 GM in DEXTROSE 5% 100 ML IV SCH ×3 (01:42→17:36)
[2018-09-04] MEDS: INSULIN ASPART 100 UNITS/ML 3 ML PEN SC SCH ×5 (04:05→20:06)
[2018-09-04 04:43] LABS: Basophils # (auto) 0.02 K/uL (0-0.2); Basophils % (auto) 0.3 %; Eosinophils # (auto) 0.01 K/uL (0-0.5); Eosinophils % (auto) 0.2 %; Hematocrit (blood only) 26.7 % (37-47); Immature Granulocytes # (auto) 0.01 K/uL (0.00-0.02); Immature Granulocytes % (auto) 0.2 %; Lymphocytes # (auto) 0.85 K/uL (1.2-3.4); Lymphocytes % (auto) 14.6 %; Mean Corpuscular Hgb Conc 33.7 g/dL (32-36); Mean Corpuscular Volume 90.8 fL (80-100); Mean Platelet Volume 9.5 fL (7.4-10.4); Monocytes # (auto) 0.82 K/uL (0.11-0.59); Monocytes % (auto) 14.1 %; Neutrophils % (auto) 70.6 %; Platelet Count 108 K/uL (130-400); RDW Coefficient of Variation 16.7 % (11.5-14.5); RDW Standard Deviation 55.9 fL (36.4-46.3); Red Blood Count 2.94 M/uL (4.2-5.4); White Blood Count 5.81 K/uL (4.8-10.8)
[2018-09-04 05:00] LABS: BUN Creatinine Ratio 9.1 (10-20); Calcium 7.6 mg/dl (8.5-10.1); Creatinine Clr Calc Pharmacy 63.3 ml/min; Est GFR (African American) 65.6; Est GFR (Non-African American) 56.6; Potassium 3.2 mmol/L (3.5-5.1)
[2018-09-04] MEDS ORDERED: POTASSIUM CHLORIDE 20 MEQ TABCR PO ONE (09:00)
[2018-09-04] MEDS ORDERED: INSULIN GLARGINE SOLOSTAR 100 UNITS/ML 3 ML PEN SC ONE (09:00)
[2018-09-04] MEDS: ENOXAPARIN INJ 40 MG/0.4 ML SYR SQ SCH (09:03)
[2018-09-04] MEDS: FAMOTIDINE 20 MG TAB PO SCH (09:03)
[2018-09-04] MEDS: GABAPENTIN 100 MG CAP PO SCH ×3 (09:03→20:01)
[2018-09-04] MEDS: METOPROLOL SUCC 25MG EXT REL TAB PO SCH (09:04)
[2018-09-04] MEDS: VANCOMYCIN HCL 1,250 MG in SODIUM CHLORIDE 0.9% 250 ML IV SCH (09:06)
[2018-09-04] MEDS: HEPARIN 100 UNIT/ML 5ML FLUSH FLUSH SCH (09:08)
[2018-09-04] MEDS: POTASSIUM CHLORIDE 40 MEQ in SODIUM CHLORIDE 0.9% 1000ML 1,000 ML IV SCH ×2 (09:38→18:59)
--- NOTE | 2018-09-04 15:43 | Hospitalist Progress Note ---
Date of Service September 04, 2018 Assessment & Plan (1) Sepsis: due to UTI one blood culture growing gram negative bacilli which correlates with E coli in urine continue Zosyn WBC normal, afebrile likely the cause of her respiratory distress yesterday (2) UTI (urinary tract infection): urine culture growing E coli continue Zosyn, Vancomycin stopped follow final culture results (3) Acute respiratory failure with hypoxia: patient went into acute respiratory distress morning of 09/03 breathing 30-40 times a minute, saturations 60-70% on nasal canula lungs were clear patient sent to ICU emergently in case she decompensated further ABG with respiratory alkalosis with CO2 of 22 patient calmed down and she was titrated down to 2L via mask and saturations were in the 90's sent for CT chest, no evidence for PE, no ground glass opacities like prior imagine normal breathing for 24 hours, on room air this morning likely was compensating for sepsis and went into acute distress much better with antibiotics transfer to tele (4) Hypokalemia: coming up with IV replacement last check it was 3.2, continue 40mEq in IV fluids due to GI losses with vomiting and poor oral intake repeat BMP in the morning (5) Vomiting: unclear etiology, does have some thickening of the distal esophagus on CT chest add Protonix IV Zofran PRN could be due to sepsis, patient feeling better today (6) Malignant neoplasm of upper-outer quadrant of right breast in female, estrogen receptor positive: follows with [facility] oncology no chemotherapy since June 2018 plans to follow up with radiation oncology soon (7) Depression: continue on Fluoxetine (8) DM II (diabetes mellitus, type II), controlled: continue Novolog SS, diabetic diet once eating better holding oral agents Subjective patient looking a lot better this morning sitting up in bed eating breakfast no oxygen required, breathing comfortably, no hint of distress she is not coughing, no chest pain reviewed labs, normal WBC, no fever urine culture growing E coli and one set of blood cultures with gram negative bacilli discussed with mmi teacher, will transfer to telemetry Review of Systems Review of Systems: All systems reviewed & are unremarkable except as noted in HPI & below Constitutional: + fatigue and + weakness; no fever, no chills and no sweats Respiratory: no cough and no dyspnea Cardiovascular: no chest pain, no syncope and no edema Gastrointestinal: + nausea; no abdominal pain, no vomiting, no constipation and no diarrhea/loose stools Physical Exam Constitutional: well developed and + obese; no acute distress Eyes: PERRL, conjunctivae normal, anicteric sclerae ENMT: external ear and nose normal, oropharynx normal Neck: trachea midline, no thyromegaly Respiratory: normal respiratory effort, lungs clear to auscultation Cardiovascular: Rate/Rhythm: regular rate and regular rhythm Heart Sounds: normal S1 and normal S2; no murmur and no cardiac rub Vessels: no JVD Extremities: normal capillary refill; no edema Gastrointestinal (Abdomen): normal bowel sounds, soft, nontender, no hepatosplenomegaly Musculoskeletal: no cyanosis or clubbing, extremities motor strength 5/5 Skin: no rashes, warm and dry Neurologic: patellar DTR's 2+ bilat, sensation intact and PERRL, EOMI, accommodation nl, no face palsy, no dysarthria Psychiatric: Orientation: alert and oriented x 3 Affect: + anxious affect Lymphatic: no cervical or axillary lymphadenopathy Results & Data Vital Signs (Past 12 Hours) Vital Signs Temp Pulse Pulse Resp BP BP Pulse Ox 09/04/18 15:38 36.8 C 91 H 18 119/74 99 09/04/18 13:02 36.8 C 89 22 117/78 100 09/04/18 09:01 86 113/74 98 09/04/18 08:01 37.2 C 85 89/67 L 98 09/04/18 07:00 78 104/55 L 94 09/04/18 06:00 82 15 94/51 L 95 09/04/18 05:00 82 16 93/55 L 96 09/04/18 04:10 88 22 99/60 L 96 09/04/18 04:00 37.7 C H Laboratory Results Laboratory Results - last 24 hr 09/03/18 09/03/18 09/03/18 10:30 14:57 16:20 WBC RBC Hgb Hct MCV MCH MCHC RDW Std Deviation RDW Coeff of Rosa Plt Count MPV Immature Gran % (Auto) Neut % (Auto) Lymph % (Auto) [place] % (Auto) Eos % (Auto) Baso % (Auto) Immature Gran # (Auto) Neut # (Auto) Lymph # (Auto) [place] # (Auto) Eos # (Auto) Baso # (Auto) Sodium Potassium Chloride Carbon Dioxide Anion Gap BUN Creatinine Est Cr Clr Drug Dosing Est GFR ( Amer) Est GFR (Non-Af Amer) BUN/Creatinine Ratio Glucose POC Glucose 218 H 192 H Lactate Calcium Nasal Screen MRSA (PCR) Negative 09/03/18 09/03/18 09/03/18 17:33 18:37 19:48 WBC RBC Hgb Hct MCV MCH MCHC RDW Std Deviation RDW Coeff of Rosa Plt Count MPV Immature Gran % (Auto) Neut % (Auto) Lymph % (Auto) [place] % (Auto) Eos % (Auto) Baso % (Auto) Immature Gran # (Auto) Neut # (Auto) Lymph # (Auto) [place] # (Auto) Eos # (Auto) Baso # (Auto) Sodium Potassium Chloride Carbon Dioxide Anion Gap BUN Creatinine Est Cr Clr Drug Dosing Est GFR ( Amer) Est GFR (Non-Af Amer) BUN/Creatinine Ratio Glucose POC Glucose 169 H 150 H 242 H Lactate Calcium Nasal Screen MRSA (PCR) 09/03/18 09/03/18 09/03/18 20:33 21:36 23:56 WBC RBC Hgb Hct MCV MCH MCHC RDW Std Deviation RDW Coeff of Rosa Plt Count MPV Immature Gran % (Auto) Neut % (Auto) Lymph % (Auto) [place] % (Auto) Eos % (Auto) Baso % (Auto) Immature Gran # (Auto) Neut # (Auto) Lymph # (Auto) [place] # (Auto) Eos # (Auto) Baso # (Auto) Sodium Potassium Chloride Carbon Dioxide Anion Gap BUN Creatinine Est Cr Clr Drug Dosing Est GFR ( Amer) Est GFR (Non-Af Amer) BUN/Creatinine Ratio Glucose POC Glucose 218 H 144 H 85 Lactate Calcium Nasal Screen MRSA (PCR) 09/04/18 09/04/18 09/04/18 04:02 04:35 04:35 WBC 5.81 RBC 2.94 L Hgb 9.0 L Hct 26.7 L MCV 90.8 MCH 30.6 MCHC 33.7 RDW Std Deviation 55.9 H RDW Coeff of Rosa 16.7 H Plt Count 108 L MPV 9.5 Immature Gran % (Auto) 0.2 Neut % (Auto) 70.6 Lymph % (Auto) 14.6 [place] % (Auto) 14.1 Eos % (Auto) 0.2 Baso % (Auto) 0.3 Immature Gran # (Auto) 0.01 Neut # (Auto) 4.10 Lymph # (Auto) 0.85 L [place] # (Auto) 0.82 H Eos # (Auto) 0.01 Baso # (Auto) 0.02 Sodium 138 Potassium 3.2 L Chloride 108 H Carbon Dioxide 23 Anion Gap 7.0 BUN 10 Creatinine 1.06 Est Cr Clr Drug Dosing 63.3 Est GFR ( Amer) 65.6 Est GFR (Non-Af Amer) 56.6 BUN/Creatinine Ratio 9.1 L Glucose 63 L POC Glucose 74 Lactate Calcium 7.6 L Nasal Screen MRSA (PCR) 09/04/18 09/04/18 09/04/18 04:36 06:44 11:13 WBC RBC Hgb Hct MCV MCH MCHC RDW Std Deviation RDW Coeff of Rosa Plt Count MPV Immature Gran % (Auto) Neut % (Auto) Lymph % (Auto) [place] % (Auto) Eos % (Auto) Baso % (Auto) Immature Gran # (Auto) Neut # (Auto) Lymph # (Auto) [place] # (Auto) Eos # (Auto) Baso # (Auto) Sodium Potassium Chloride Carbon Dioxide Anion Gap BUN Creatinine Est Cr Clr Drug Dosing Est GFR ( Amer) Est GFR (Non-Af Amer) BUN/Creatinine Ratio Glucose POC Glucose 102 H 92 Lactate 1.3 Calcium Nasal Screen MRSA (PCR) Medications Administered Current Inpatient Medications Acetaminophen (Tylenol) 650 mg PO Q4H PRN PRN Reason: pain/fever Stop: 10/03/18 05:48 Al Hydrox/Mg Hydrox/Simethicone (Maalox) 30 ml PO Q6H PRN PRN Reason: Dyspepsia Stop: 10/03/18 05:48 Albuterol (Duoneb) 3 ml INH Q4H PRN PRN Reason: wheezing Stop: 10/03/18 03:47 Last Admin: 09/03/18 04:22 Dose: 3 ml Documented by: Albuterol (Duoneb) 3 ml NEB Q4R PRN PRN Reason: Dyspnea Stop: 10/03/18 05:48 Dextrose (Dextrose 50%) 25 - 50 ml IV UD PRN; Protocol PRN Reason: Hypoglycemia Protocol Stop: 10/03/18 05:48 Enoxaparin Sodium (Lovenox) 40 mg SQ Q24H HETAL Stop: 10/03/18 08:59 Last Admin: 09/04/18 09:03 Dose: 40 mg Documented by: Famotidine (Pepcid) 20 mg PO QAM HETAL Stop: 10/03/18 08:59 Last Admin: 09/04/18 09:03 Dose: 20 mg Documented by: Gabapentin (Neurontin) 200 mg PO TID HETAL Stop: 10/03/18 08:59 Last Admin: 09/04/18 13:55 Dose: 200 mg Documented by: Glucagon (Glucagen) 1 mg SQ UD PRN; Protocol PRN Reason: Hypoglycemia Protocol Stop: 10/03/18 05:48 Glucose (Glucose 40%) 15 - 30 gm PO UD PRN; Protocol PRN Reason: Hypoglycemia Protocol Stop: 10/03/18 05:48 Glucose (Dex4 Glucose) 4 - 8 tabs PO UD PRN; Protocol PRN Reason: Hypoglycemia Protocol Stop: 10/03/18 05:48 Heparin Sodium (Porcine) (Heparin Sod 100 Unit/Ml Flush) 5 ml FLUSH PRN [facility] Stop: 10/03/18 07:29 Last Admin: 09/04/18 09:08 Dose: Not Given Documented by: Piperacillin Sod/Tazobactam (Sod 4.5 gm/ Dextrose) 120 mls @ 30 mls/hr IV Q8H [facility]; Protocol Stop: 09/10/18 23:59 Last Infusion: 09/04/18 13:49 Dose: Infused Documented by: Potassium Chloride 40 meq/ (Sodium Chloride) 1,020 mls @ 100 mls/hr IV .[id number] [facility] Stop: 10/03/18 07:59 Last Infusion: 09/04/18 13:49 Dose: 100 mls/hr Documented by: Insulin Aspart (Novolog Flexpen) 0 units SC ACHS [facility] Stop: 10/04/18 07:29 Last Admin: 09/04/18 11:33 Dose: 6 units Documented by: Insulin Glargine (Lantus Solostar Pen) 0 units SC HS [facility]; Protocol Stop: 09/04/18 21:01 Ioversol (Optiray 320 125ml) 119 ml IV ONCE PRN PRN Reason: Interaction Checking Stop: 09/07/18 11:43 Last Admin: 09/03/18 11:45 Dose: 119 ml Documented by: Magnesium Hydroxide (Milk Of Magnesia) 30 ml PO Q6H PRN PRN Reason: Constipation Stop: 10/03/18 05:48 Metoprolol Succinate (Toprol Xl) 25 mg PO DAILY HETAL Stop: 10/03/18 08:59 Last Admin: 09/04/18 09:04 Dose: 25 mg Documented by: Miscellaneous (Carbohydrates For Hypoglycemia) 15 - 30 gm PO UD PRN PRN Reason: Hypoglycemia Treatment Stop: 10/03/18 05:48 Miscellaneous Information (Consult) 1 ea N/A UD PRN PRN Reason: Consult Stop: 10/03/18 05:48 Miscellaneous Information (Consult Glycemic Management Pharmacy) 1 ea N/A UD HETAL Stop: 10/03/18 12:13 Ondansetron HCl (Zofran) 4 mg IV Q6H PRN PRN Reason: Nausea Stop: 10/03/18 05:48 Last Admin: 09/03/18 10:01 Dose: 4 mg Documented by: Polyethylene Glycol (Miralax Powder Packet) 17 gm PO DAILY PRN PRN Reason: Constipation Stop: 10/03/18 05:48 PG Care Time/CCT Total # of Minutes Spent Total Time Spent with Patient: Total time spent is greater than 50% in coordination of care (as documented) at patient's floor/unit and/or counseling patient: (1) Vomiting Nausea presence: with nausea Vomiting Intractability: unspecified Vomiting type: unspecified Qualified Code(s): R11.2 - Nausea with vomiting, unspecified (2) UTI (urinary tract infection) Urinary tract infection type: acute pyelonephritis Qualified Code(s): N10 - Acute pyelonephritis (3) Sepsis Sepsis type: sepsis due to unspecified organism Qualified Code(s): A41.9 - Sepsis, unspecified organism
[2018-09-04] MEDS ORDERED: INSULIN GLARGINE SOLOSTAR 100 UNITS/ML 3 ML PEN SC SCH (21:00)
[2018-09-04] MEDS ORDERED: HYDROCODONE/ACETAMOPHEN 5/325MG TAB PO PRN (23:25)
[2018-09-04] MEDS ORDERED: HYDROCODONE/ACETAMOPHEN 5/325MG TAB PO STA (23:26)
[2018-09-05] MEDS: PIPERACILLIN/TAZOBACTAM 4.5 GM in DEXTROSE 5% 100 ML IV SCH ×2 (02:01→10:57)
[2018-09-05] MEDS: POTASSIUM CHLORIDE 40 MEQ in SODIUM CHLORIDE 0.9% 1000ML 1,000 ML IV SCH (05:59)
[2018-09-05] MEDS: INSULIN ASPART 100 UNITS/ML 3 ML PEN SC SCH (08:14)
[2018-09-05 08:19] LABS: BUN Creatinine Ratio 11.2 (10-20); Calcium 7.8 mg/dl (8.5-10.1); Creatinine Clr Calc Pharmacy 77.5 ml/min; Est GFR (African American) 81.1; Potassium 3.8 mmol/L (3.5-5.1)
[2018-09-05] MEDS: ENOXAPARIN INJ 40 MG/0.4 ML SYR SQ SCH (08:26)
[2018-09-05] MEDS: GABAPENTIN 100 MG CAP PO SCH (08:27)
[2018-09-05] MEDS: METOPROLOL SUCC 25MG EXT REL TAB PO SCH (08:27)
[2018-09-05] MEDS: FAMOTIDINE 20 MG TAB PO SCH (08:27)
[2018-09-05] MEDS ORDERED: INSULIN GLARGINE SOLOSTAR 100 UNITS/ML 3 ML PEN SC SCH (09:00)
--- NOTE | 2018-09-05 10:55 | Pharmacy Report ---
Glycemic Control Progress Note - Date of Service September 05, 2018 - Scope Glycemic Pharmacist consulted for glycemic control to write orders per [facility] inpatient glycemic control protocol. - Objective Accuchecks BSG(last 24 hours):: 09/04/18 09/04/18 09/04/18 11:13 16:34 20:05 Glucose POC Glucose 92 94 109 H 09/05/18 09/05/18 07:08 07:23 Glucose 76 POC Glucose 95 - Recent Pertinent Medications The patient is currently receiving: * Basal insulin: Lantus 15-25 units every 24 hours * Correctional Insulin: Novolog Correction per scale ACHS Goal Range: Low 110 mg/dL - High 140 mg/dL Correction Factor: 15 mg/dL/unit * Prandial insulin: Per carb ratio of 1 unit per 6 grams CHO consumed - Outpatient Anti-Diabetic Meds Tresiba 68 units daily + Novolog 9 units in AM, 13 units with lunch; 15 units with dinner metformin 1 gm PO BID - Assessment & Plan ASSESSMENT: * See progress note from 09/03/18 for more background info, in short: * Pt receiving SQ basal bolus insulin regimen for hyperglycemia secondary to baseline DM (outpatient regimen on hold). * Patient is currently receiving an average of 45 units of insulin per day * 35 units of basal insulin * 10 units of prandial/correctional insulin * BSGs ranging 66 - 109 mg/dl over the past 24hrs * Changes needed to insulin regimen: * AM Fasting BSG = 95 mg/dl. This is slightly below goal range for patient based on inpatient targets and co-morbidities. It is however higher than yesterday. Schedule Lantus 15 units SQ BID (15% reduction in basal dose)- may be titrated upwards. * Post-prandial BSGs are in range therefore no changes needed to CF/CR. * Total daily dose = ~50-60 units. PLAN FOR INPATIENT GLYCEMIC CONTROL: * DECREASING Lantus 15 units SQ BID * Continuing correction factor of 15 mg/dl/unit * Continuing carb ratio of 1 unit per 5 grams CHO consumed * Continuing goal range to Low 110 mg/dL - High 140 mg/dL RECOMMENDATIONS FOR DISCHARGE: * HbA1C indicates adequate control. As long as patient does not have hypoglycemia as an outpatient it is reasonable to continue dose. * Please note that the plan above was derived based on current level of insulin resistance and hospital stress. These recommendations are appropriate for inpatient admission only. Plan of care upon discharge will need to be reassessed to avoid potential outpatient hypo/hyperglycemia. Thank you.
[2018-09-05] MEDS ORDERED: VANCOMYCIN TROUGH ONE (11:30)
--- NOTE | 2018-09-05 14:19 | Discharge Summary ---
Date of Service September 05, 2018 Admission HPI Per Admitting Provider Patient is a pleasant 63yo F PMH Breast cancer, T2DM, Anemia, Hypothyroid, HTN, Depression who presented tonight with nausea, vomiting, "searching for words" and improper balance issues. She notes she has been feeling generally unwell in the past few days with nausea and yesterday threw up orange vomit despite no orange-containing foods being consumed (she does report she has been eating a lot of tomatoes, however). She notes that as she has been feeling unwell, her balance has been off (no falls) and she sometimes finds it difficult to think of words she wants to say. She reports fevers and chills and her daughter noted a subjective fever this morning. Patient recently admitted for pneumonia and sepsis about 6 weeks ago. She notes her cough was doing better but has recently started to come back with yellowish phlegm. Reports some diarrhea and abdominal discomfort. H/O cholecystectomy, no h/o ulcers. Chronic LE pain due to venous insufficiency. Denies urinary symptoms. Patient last treated with chemo on June 29 2018. They have stopped treating with chemo due to pt symptoms and concern for chemo-induced lung damage. She is setting up radiation treatment at this time. She is unsure of her next PET scan In the ER, she was found to be hypokalemic, hyponatremic, hypertensive, tachycardic. WBC was normal, chronic anemia. Lactate ordered after original lab draw and as patient is difficult stick, were unable to attain. Urine sample not obtained. She was afebrile on arrival. Head CT did not reveal any acute findings, but did note some mastoiditis, which may explain balance issues. RLE USS did not reveal DVT. At time of note, she is awaiting CT abdomen, CXR. She was started on broad-spectrum antibiotics, given 1 dose of doxy, 125 solumedrol with duoneb, given a K-rider and IV tylenol. Admission Exam Per Admitting Provider Constitutional: WD/WN, vitals as above + morbidly obese, cooperative and comfortable; no altered mental status and not in distress Eyes: PERRL, conjunctivae normal, anicteric sclerae ENMT: Mouth: + dry oral mucous membranes Neck: normal visual inspection Respiratory: normal respiratory effort, lungs clear to auscultation Cardiovascular: Rate/Rhythm: regular rate and regular rhythm Vessels: normal peripheral pulses Extremities: + calf tenderness (chronic venous insufficiency) and + vascular access device (anterior chest wall) Gastrointestinal (Abdomen): Inspection/Auscultation: + abdomen distended Percussion/Palpation: + abdomen tender (epigastric) and abdomen soft Skin: no rashes, warm and dry Neurologic: PERRL, EOMI, accommodation nl, no face palsy, no dysarthria Speech / Cognition: normal speech Motor/Sensory: no tremor Psychiatric: A+Ox3, euthymic affect Principal Diagnosis Sepsis due to UTI Discharge Exam Constitutional well developed and + obese; no acute distress Eyes PERRL, conjunctivae normal, anicteric sclerae ENMT external ear and nose normal, oropharynx normal Neck trachea midline, no thyromegaly Respiratory Auscultation: lungs clear to auscultation bilaterally Cardiovascular Rate/Rhythm: regular rate and regular rhythm Heart Sounds: normal S1 and normal S2; no murmur and no cardiac rub Vessels: no JVD Extremities: normal capillary refill; no edema Gastrointestinal (Abdomen) normal bowel sounds, soft, nontender, no hepatosplenomegaly Musculoskeletal no cyanosis or clubbing, extremities motor strength 5/5 Skin no rashes, warm and dry Neurologic patellar DTR's 2+ bilat, sensation intact and PERRL, EOMI, accommodation nl, no face palsy, no dysarthria Psychiatric Orientation: alert and oriented x 3 Lymphatic no cervical or axillary lymphadenopathy Discharge Data Allergies Allergy/AdvReac Type Severity Reaction Status Date / Time adhesive Allergy Unknown "BLISTERS Verified 09/03/18 00:31 AND PULLS MY SKIN OFF" codeine AdvReac Mild Nausea Verified 09/03/18 00:31 erythromycin base AdvReac Unknown STOMACH Verified 09/03/18 00:31 PAIN indomethacin AdvReac Unknown "THINS Verified 09/03/18 00:31 BLOOD OUT TOO MUCH" valacyclovir [From Valtrex] AdvReac Unknown Palpitation Verified 09/03/18 00:31 s Consultations 09/03/18 03:44 ED Decision to Admit Stat Ordered Studies 09/02/18 23:17 CT head/brain wo con Urgent 09/02/18 23:18 US venous doppler LE RT Urgent 09/03/18 02:54 CT abd pelvis IV con only Urgent 09/03/18 10:32 CT angio chest PE protocol Urgent Hospital Course (1) Sepsis: due to UTI one blood culture growing E coli, sensitive to cephalosporins urine culture grew the same E coli treated with Zosyn since admission WBC normal, afebrile likely the cause of her respiratory distress shortly after admission plan to d/c home on Keflex x 14 more days for complet treatment of bacteremia (2) UTI (urinary tract infection): urine culture growing E coli, sensitive to Keflex d/c home on 14 day course for the associated bacteremia (3) Acute respiratory failure with hypoxia: patient went into acute respiratory distress morning of 09/03 breathing 30-40 times a minute, saturations 60-70% on nasal canula lungs were clear patient sent to ICU emergently in case she decompensated further ABG with respiratory alkalosis with CO2 of 22 patient calmed down and she was titrated down to 2L via mask and saturations were in the 90's sent for CT chest, no evidence for PE, no ground glass opacities like prior imagine normal breathing for over 48 hours on room air likely was compensating for sepsis and went into acute distress much better with antibiotics (4) Hypokalemia: coming up with IV replacement up to 3.8 due to GI losses with vomiting and poor oral intake repeat BMP in the morning (5) Vomiting: unclear etiology, does have some thickening of the distal esophagus on CT chest add Protonix IV Zofran PRN could be due to sepsis, patient feeling better today will d/c on Protonix 40mg PO daily due to GERD and upset stomach (6) Malignant neoplasm of upper-outer quadrant of right breast in female, estrogen receptor positive: [facility] no chemotherapy since June 2018 plans to follow up with radiation oncology soon (7) Depression: continue on Fluoxetine (8) DM II (diabetes mellitus, type II), controlled: continue Novolog SS, diabetic diet once eating better holding oral agents resume home regimen on discharge Total Time Total Time Spent Total Time Spent (In Minutes): 40 minutes Total Time Includes: Examination of the Patient, Discharge Planning and Medication Reconciliation Discharge Plan Discharge Items Patient Disposition: Home - Self-Care Reason For Visit: NAUSEA, VOMITING Discharge Diagnosis: E coli bacteremia E coli UTI Sepsis Condition: Good Discharge Goals: Improve disease control and Improve function Activity: Resume your previous activity Non-emergency contact: Primary Care Provider and Oncologist Call non-emergency contact if: you have any medication questions, your symptoms worsen and you have a fever Follow-up/Referrals: Yesica Disla MD [Primary Care Provider] - Diet: Carb Consistent or DM2 and Heart Healthy Addtl Provider Instructions: Medications: - KEFLEX: antibiotic to treat UTI as well as bacteremia/sepsis, take three times a day for 14 days, next dose this afternoon around 2pm - PROTONIX: to treat reflux, CT chest showed some irritation of the esophagus, take this once a day for four weeks Sepsis, bacteremia due to E coli UTI responded well to Zosyn IV no fever, WBC normal and overall you are feeling a lot better will transition to Keflex to complete 14 more days, the culture showed that the E coli is sensitive to Keflex follow up with your primary care doctor Acute respiratory distress due to sepsis and metabolic acidosis much better CT of the chest did not show any blood clots or other etiology or the shortness of breath FOLLOW UP - Dr. Barragan next week, call [facility] for appt next week - radiation oncology, call on Friday to reschedule your CT scan Prescriptions: New pantoprazole [Protonix] 40 mg tablet,delayed release (DR/EC) 40 mg PO DAILY 28 Days Qty: 28 RF: 0 cephalexin [Keflex] 500 mg capsule 500 mg PO TID 14 Days Qty: 42 RF: 0 Continued Tresiba FlexTouch U-200 200 unit/mL (3 mL) insulin pen 68 units subcut DAILY RF: 0 levothyroxine 200 mcg tablet 200 mcg PO QAM RF: 0 cyanocobalamin (vitamin B-12) 1,000 mcg tablet PO .TAKE 1 TABLET DAILY RF: 0 omega-3 acid ethyl esters 1 gram capsule 2 g PO DAILY RF: 0 fluoxetine 40 mg capsule 40 mg PO QAM Qty: 90 RF: 0 gabapentin 100 mg capsule 200 mg PO TID Qty: 180 RF: 0 Novolog Flexpen U-100 Insulin 100 unit/mL (3 mL) insulin pen See Rx Instructions SQ TID Qty: 15 RF: 2 ipratropium-albuterol 0.5 mg-3 mg(2.5 mg base)/3 mL solution for nebulization 3 ml INH Q4H PRN (Reason: wheezing) Qty: 180 RF: 0 levothyroxine 25 mcg tablet 25 mcg PO DAILY Qty: 30 RF: 2 losartan-hydrochlorothiazide 100-25 mg tablet 1 tab PO DAILY Qty: 30 RF: 0 metformin 1,000 mg tablet 1,000 mg PO BID Qty: 60 RF: 0 metoprolol succinate 25 mg tablet extended release 24 hr 25 mg PO DAILY Qty: 30 RF: 0 cholecalciferol (vitamin D3) [Vitamin D3] 2,000 unit Capsule 2,000 unit PO DAILY RF: 0 aspirin [Aspir-81] 81 mg Tablet,Delayed Release (Dr/Ec) 81 mg PO QAM RF: 0 meclizine 25 mg Tablet 25 mg PO DAILY PRN (Reason: Dizziness) RF: 0 Stand-Alone Forms: [facility] Discharge Orders: Discharge Order (Routine); Ordered 09/05/18 Ordered By: Chencho Nunez Admission Data Admit Date/Time: 09/03/18 04:00 Attending Provider: Chencho Nunez Admit Provider: Kim Bradley Primary Care Provider: Yesica Disla Other Providers: Wang Pablo Service: Telemetry
== END 2018-09-05 16:55 | disposition home or self-care (01) | DRG 871 ==
LOC: ED 22:53 → 2N 09-03 04:00 → SUATTDRO 09-03 04:00 → 2N 09-03 05:21 → 1E 09-03 10:01 → 2S 09-04 12:42

== ENCOUNTER 2020-01-30 07:20 | Observation (INO) ==
[2020-01-30] MEDS ORDERED: cefTRIAXone SODIUM 2,000 MG/70 ML BAG IV STA (08:10)
--- NOTE | 2020-01-30 08:35 | Emergency Department Note ---
Impression & Plan Cellulitis of right arm ED Provider Note CHIEF COMPLAINT: Right arm pain, redness HISTORY OF PRESENTING ILLNESS: This is a 64-year-old female who presents to the emergency department by private vehicle with complaint of right upper arm pain and redness that started yesterday. Patient states she first noticed a pain in the upper arm yesterday afternoon while she was driving and later that evening she started to notice some redness developing in the arm. Today she noticed that the arm was very red and more swollen and painful. She states the pain is constant, she describes as an ache with some throbbing, and rates the pain 7/10. She has not tried any medication for the pain. She does note a history of breast cancer with bilateral mastectomy and notes that her right arm is restri cted, she had 6 lymph nodes removed and has since developed lymphedema in this arm. She denies any history of cellulitis or blood clots in the past. She does not currently take any blood thinner medication. She denies any known injury to the arm and has not noticed any scratches, infected hairs, or bug bites. She denies any fevers or chills, chest pain, shortness of breath, dizziness, abdominal or back pain, nausea, vomiting, or diarrhea. She does note that she has been having some symptoms of a bladder infection for the past few days, but she has not had this evaluated. REVIEW OF SYSTEMS: A complete 10 point review of systems was reviewed with the patient with pertinent positives and negatives as per history of present illness. All else were negative. PAST MEDICAL HISTORY: Hypertension, hyperlipidemia, hypothyroidism, type 2 diabetes on insulin, depression, peripheral neuropathy, GERD, breast cancer s/p bilateral mastectomy SOCIAL HISTORY: Lives at home with her spouse, she is a former smoker and does admit to drinking alcohol socially ALLERGIES: Reviewed in chart and with the patient PHYSICAL EXAM: CONSTITUTIONAL: Pleasant and cooperative. Nontoxic-appearing and in no acute distress. Well appearing and well nourished. HEENT: Normocephalic, atraumatic. NECK: Supple, full active range of motion without discomfort. RESPIRATORY: Clear to auscultation bilaterally with no wheezing, crackles, rhonchi or stridor. Equal expansion bilaterally. CARDIOVASCULAR: Regular rate and rhythm with no murmurs, rubs or gallops. Normal peripheral perfusion. No edema. GASTROINTESTINAL: Soft, nontender, nondistended. No palpable masses or HSM. Bowel sounds present in all quadrants. MUSCULOSKELETAL: There is extensive, circumferential erythema, swelling, and induration of the right upper extremity extending from the upper two thirds of the humeral region down over the elbow and to the mid forearm. Hot to touch. Tender to palpation. No areas of fluctuance, open wound or discharge. Full range of motion of the right shoulder, elbow, and wrist joints without discomfort. INTEGUMENTARY: No rash or other significant dermatologic conditions noted. NEUROLOGIC: Alert and oriented X 4 with normal affect. Normal strength and sensation in all 4 extremities. Normal speech. Normal gait observed. ED COURSE AND MEDICAL DECISION MAKING: CC: Patient presenting with complaint of right arm pain/redness DIFFERENTIAL DIAGNOSIS: Includes, but not limited to cellulitis, abscess, MRSA infection, lymphedema, DVT, bacteremia/sepsis, among others. INTERPRETATION OF LABS: No leukocytosis, no anemia, normal platelets, no significant electrolyte abnormalities, normal renal function, normal liver enzymes. Coagulation factors within normal limits. UA appears contaminated, u rine culture pending. IMAGING: RIGHT UPPER EXTREMITY VENOUS DOPPLER ULTRASOUND CLINICAL HISTORY: right arm pain, swelling, redness COMPARISON STUDY: Right upper extremity venous Doppler ultrasound October 13, 2019. FINDINGS: The right internal jugular, subclavian, axillary, cephalic, basilic, brachial, radial and ulnar veins are patent. No deep venous thrombus is identified within the right upper extremity. IMPRESSION: No deep venous thrombus within the right upper extremity. MEDICATION RECONCILIATION: I attest that I have personally reviewed the patient's current medication list. INITIAL VITAL SIGNS REVIEW: I reviewed the patient's initial vital signs and interpret them as follows: T: Afebrile; BP: Hypertensive; HR: Within normal limits; RR: Within normal limits; Pulse Ox: Within normal limits on room air. MDM SUMMARY: Patient was evaluated at bedside, history and physical exam performed. Patient was alert and oriented, in no acute distress, resting calmly in stretc her. There is diffuse erythema, tenderness, and induration of the right upper extremity that appears consistent with cellulitis. No palpable crepitus. The forearm compartments are soft and nontender. Neurovascularly intact. She is afebrile and nontoxic-appearing. Orders were placed at bedside for labs, blood cultures and lactic acid, IV ceftriaxone for presumed cellulitis, venous Doppler ultrasound of the right upper extremity to evaluate for DVT. The patient was offered something for pain, she declines at this time. Patient discussed with Dr. Montero, who also evaluated the patient and agrees with my assessment, plan, and disposition. Labs and imaging reviewed as above, no leukocytosis, no significant lab abnormalities. UA appears contaminated, urine cultures pending. Venous Doppler ultrasound is negative for DVT. I do suspect that the patient has cellulitis of the right upper extremity, given her history of lymph node resection and lymphedema in the right arm as well as being an insulin-dependent diabetic, I feel that she is high risk for discharge home with what seems to be a rapidly progressing cellulitis. I discussed admission with the patient and she was agreeable to this. I spoke on the phone with Dr. Doan, hospitalist, who agrees to evaluate the patient for the admission. The patient was stable at time of admission. The chart was completed utilizing [employer] Speech voice recognition software. Grammatical errors, random word insertions, pronoun errors, and incomplete sentences are an occasional consequence of this system due to software limitations, ambient noise, and hardware issues. Any formal questions or concerns about the content, text, or information contained within the body of this dictation should be directly addressed to the nurse practitioner for clarification. Attending Attestation: I Tom Montero MD independently saw and evaluated this patient and agree with history and physical is otherwise documented by the nurse practitioner. See their note for full details. Patient with circumferential erythema and tenderness of the R upper arm without crepitus on exam. No tenderness from mid forearm distally. No real pain with ROM of R shoulder. Concern for cellulitis based on testing. Multiple risk factors including DM, lymphnode resection, and large size. Discussed with patient and will obs with IV abx to monitor for improvement. Past Med/Surg History Medical History (Updated 01/30/20 @ 17:11 by SILVIO Ca) Anemia Anxiety PANIC ATTACKS Benign essential HTN Breast cancer, right breast Cancer BREAST CANCER-RIGHT SIDE Degenerative disc disease Depression Depression Diabetes mellitus, type 2 INSULIN/ORAL MEDS- Diabetes mellitus, type 2 Disc degeneration, lumbar DM II (diabetes mellitus, type II), controlled Dyslipidemia Fatty liver GERD (gastroesophageal reflux disease) History of recent steroid use HLD (hyperlipidemia) Hx of breast cancer HX OF BILATERAL MASTECTOMY NOV 2017. DO NOT USE RIGHT ARM Hypertension Hypokalemia Hypothyroidism Hypothyroidism Infiltrating lobular carcinoma Malignant neoplasm of upper-outer quadrant of right breast in female, estrogen receptor positive Morbid obesity Morbid obesity with BMI of 50.0-59.9, adult Neutropenia Peripheral neuropathy secondary to back surgery Peripheral neuropathy Pneumonia hospitalization in June 2018 Sciatica Venous insufficiency Venous insufficiency (chronic) (peripheral) Vitamin D deficiency Surgical History (Updated 12/30/18 @ 12:19 by SONJA Dooley) History of adenoidectomy History of cardiac cath GREATER THAN 6 YRS AGO-[place] [place] History of section X 2 History of cholecystectomy History of dilatation and curettage History of hip surgery AN -LEFT SIDE History of laminectomy X 2 INCL FUSION-LUMBAR History of mastectomy BILATERAL, 12/15/17 @ [facility]. DO NOT USE RIGHT ARM History of tonsillectomy Family History (Updated 12/30/18 @ 12:21 by SONJA Dooley) Mother Family history of diabetes mellitus Heart disease Hypertension Kidney disease Father , age 57 Heart disease Hodgkins disease HLD (hyperlipidemia) Hypertension Sister Hypertension Daughter Colonic polyp Daughter Appendiceal carcinoid tumor had surgery age 22 / no other treatment Abnormal breast exam, Onset Age: 31 mammogram scheduled for 09-18-18 spots , 1 in each breast Aunt Gallbladder cancer, carcinoma Family/Other Breast cancer cousin Social History Smoking Status: Former smoker Tobacco Type: Cigarettes Age Started Using Tobacco: 21; packs per day: 1.5; Cigarettes Per Day: 30; Smoking End Date: 32 years ago; Second Hand Exposure: Yes (occasionally); Do You Dip or Chew Tobacco: No; Tobacco Cessation Education Requested by Patient: No Hx Alcohol Use: Yes Alcohol type: hard liquor Alcohol Intake Frequency Comment: drinks socially Hx Substance Use: No Preferred Language: Armenian Communication Ability: Effective Visual Impairment: No Limitations Hearing Ability: Normal Animal Behaviorist Required: No Beliefs That Will Affect Care: None marital status: Current Living Situation: Spouse current occupational status: retired current occupation: Retired / works Adminisrative associate for [employer] Other Information That Helps Us Care for You: No Feels Safe at Home: Yes Safety Concerns: Feels Safe At This Time Childhood Exposure to Second-Hand Smoke: Yes Assistive Devices: Glasses and Walker Allergies Allergies Allergy/AdvReac Type Severity Reaction Status Date / Time adhesive Allergy Unknown "BLISTERS Verified 01/30/20 08:04 AND PULLS MY SKIN OFF" codeine AdvReac Mild Nausea Verified 01/30/20 08:04 erythromycin base AdvReac Unknown STOMACH Verified 01/30/20 08:04 PAIN indomethacin AdvReac Unknown "THINS Verified 01/30/20 08:04 BLOOD OUT TOO MUCH" valacyclovir [From Valtrex] AdvReac Unknown Palpitation Verified 01/30/20 08:04 s Home Meds Home Medications Medication Instructions Recorded Confirmed cholecalciferol (vitamin D3) 2,000 unit PO DAILY 02/23/18 01/30/20 [Vitamin D3] omega-3 acid ethyl esters 1 gram 2 g PO DAILY cap 08/30/18 01/30/20 capsule cyanocobalamin (vitamin B-12) 1,000 mcg PO DAILY tab 11/30/18 01/30/20 1,000 mcg tablet meclizine 25 mg tablet 25 mg PO TID PRN tab 11/30/18 01/30/20 levothyroxine 200 mcg tablet 200 mcg PO QAM tab 12/23/18 01/30/20 aspirin [Aspirin Low-Strength] 81 mg PO DAILY 01/30/20 01/30/20 furosemide [Lasix] 20 mg PO QAM PRN 01/30/20 01/30/20 Previous Rx's Medication Instructions Recorded ipratropium 0.5 mg-albuterol 3 mg 3 ml INH Q4H PRN #180 ml 08/30/18 (2.5 mg base)/3 mL nebulization soln silver sulfadiazine 1 % topical 1 applic TOP BID #50 gm 10/19/18 cream cyclobenzaprine 10 mg tablet 10 mg PO TID PRN #20 tab 12/04/18 levothyroxine 25 mcg tablet 25 mcg PO DAILY #90 tab 12/31/18 gabapentin 300 mg capsule 300 mg PO TID #180 cap 01/22/19 hydrochlorothiazide 25 mg tablet 25 mg PO DAILY #30 tab 03/08/19 Novolog Flexpen U-100 Insulin 100 See Rx Instructions SQ TID #15 ml 03/26/19 unit/mL (3 mL) subcutaneous NS Tresiba FlexTouch U-200 200 70 units SQ HS #18 ml NS 08/05/19 unit/mL (3 mL) subcutaneous pen metformin 1,000 mg tablet 1,000 mg PO BID #60 tab 08/05/19 losartan 100 mg tablet 100 mg PO DAILY #30 tab 10/13/19 fluoxetine 40 mg capsule 40 mg PO QAM #90 cap 10/28/19 metoprolol succinate 25 mg 25 mg PO DAILY #30 tab 10/28/19 tablet,extended release 24 hr hydrocodone 5 mg-acetaminophen 325 See Rx Instructions PO Q6H PRN #45 12/02/19 mg tablet tab ondansetron HCl 4 mg tablet 4 mg PO QID PRN #30 tab 01/28/20 Results & Data (ED) Vital Signs Vital Signs - 24 hr 01/30/20 07:31 01/30/20 09:24 01/30/20 11:14 Temperature 36.5 C Temperature Source Oral Pulse Rate 67 Pulse Rate [Left Finger] 86 83 Respiratory Rate 18 20 20 Respiratory Effort / Characteristics Non-Labored Spontaneous Non-Labored Respiratory Depth Normal Normal Respiratory Pattern Regular Blood Pressure 209/95 H Blood Pressure [Left Arm] 155/93 H 151/88 H Blood Pressure Mean 133 Blood Pressure Mean [Left Arm] 113 109 Blood Pressure Position Sitting Pulse Oximetry 95 97 97 Oxygen Delivery Method Room Air Room Air Room Air Sepsis Recent Fever Within 48 Hours No Sepsis New/Unexplained Change in Mental Status N/A Sepsis Action Taken by Nursing No Action Required Laboratory Data Result diagrams: 01/30/20 10:22 01/30/20 10:22 Lab Results 01/30/20 01/30/20 01/30/20 Range/Units 08:57 08:57 08:57 WBC Cancelled RBC Cancelled Hgb Cancelled Hct Cancelled MCV Cancelled MCH Cancelled MCHC Cancelled RDW Std Deviation Cancelled RDW Coeff of Rosa Cancelled Plt Count Cancelled MPV Cancelled Immature Gran % (Auto) Cancelled Neut % (Auto) Cancelled Lymph % (Auto) Cancelled [place] % (Auto) Cancelled Eos % (Auto) Cancelled Baso % (Auto) Cancelled Neut # (Auto) Cancelled Lymph # (Auto) Cancelled [place] # (Auto) Cancelled Eos # (Auto) Cancelled Baso # (Auto) Cancelled Immature Gran # (Auto) Cancelled Absolute Nucleated RBC Cancelled Nucleated RBC % (auto) Cancelled Neutrophils % (Manual) Cancelled Band Neutrophils % Cancelled Lymphocytes % (Manual) Cancelled Prolymphocyte % Cancelled Reactive Lymphs % (Man) Cancelled Monocytes % (Manual) Cancelled Eosinophils % (Manual) Cancelled Basophils % (Manual) Cancelled Metamyelocytes % (Man) Cancelled Myelocytes % (Man) Cancelled Promyelocytes % (Man) Cancelled Blast Cells % (Manual) Cancelled Plasma Cell % (Manual) Cancelled Other Cells % Cancelled Nucleated RBC % Cancelled Neutrophils # (Manual) Cancelled Band Neutrophils # Cancelled Total Absolute Neuts Cancelled Lymphocytes # (Manual) Cancelled Prolymphocyte # Cancelled Reactive Lymphs # Cancelled Total Abs Lymphocytes Cancelled Monocytes # (Manual) Cancelled Eosinophils # (Manual) Cancelled Basophils # (Manual) Cancelled Metamyelocytes # (Man) Cancelled Myelocytes # (Manual) Cancelled Promyelocytes # (Man) Cancelled Blast Cells # (Man) Cancelled Plasma Cell # (Manual) Cancelled Other Cells # Cancelled Nucleated RBCs # (Man) Cancelled Hypersegmented Neuts Cancelled Hyposegmented Neuts Cancelled Hypogranular Neuts Cancelled Large Granular Lymphs Cancelled # Lrg Granular Lymphs Cancelled Hairy Cells Cancelled Smudge Cells Cancelled Toxic Granulation Cancelled Toxic Vacuolation Cancelled Dohle Bodies Cancelled Elizabeth Rods Cancelled Platelet Estimate Cancelled Hypogranular Platelets Cancelled Clumped Platelets Cancelled Giant Platelets Cancelled Platelet Satelliting Cancelled RBC Morphology Cancelled Polychromasia Cancelled Hypochromasia Cancelled Poikilocytosis Cancelled Basophilic Stippling Cancelled Anisocytosis Cancelled Microcytosis Cancelled Macrocytosis Cancelled Spherocytes Cancelled Pappenheimer Bodies Cancelled Sickle Cells Cancelled Target Cells Cancelled Tear Drop Cells Cancelled Ovalocytes Cancelled Stomatocytes Cancelled Ahuja-Mcclave Bodies Cancelled Echinocytes Cancelled Acanthocytes (Spur) Cancelled Rouleaux Cancelled RBC Agglutinates Cancelled Schistocytes Cancelled RBC Morph Comment Cancelled Sezary Cell Cancelled PT 10.3 (9.0-12.0) Seconds INR 1.0 (0.9-1.1) APTT 25.4 (21.0-31.0) Seconds PTT Ratio 0.9 Sodium Cancelled Potassium Cancelled Chloride Cancelled Carbon Dioxide Cancelled Anion Gap Cancelled BUN Cancelled Creatinine Cancelled Est Cr Clr Drug Dosing Cancelled Est GFR ( Amer) Cancelled Est GFR (Non-Af Amer) Cancelled BUN/Creatinine Ratio Cancelled Glucose Cancelled Calcium Cancelled Total Bilirubin Cancelled AST Cancelled ALT Cancelled Alkaline Phosphatase Cancelled Total Protein Cancelled Albumin Cancelled Globulin Cancelled Albumin/Globulin Ratio Cancelled Specimen Hemolysis Urine Color Urine Appearance (Clear) Urine pH (4.5-7.5) Ur Specific [place] (1.000-1.030) Urine Protein (Negative) Urine Glucose (UA) (Negative) Urine Ketones (Negative) Urine Blood (Negative) Urine Nitrite (Negative) Urine Bilirubin (Negative) Urine Urobilinogen (Negative) Ur Leukocyte Esterase (Negative) Urine WBC (Auto) (0-5) /hpf Urine RBC (Auto) (0-4) /hpf U Hyaline Cast (Auto) (0-5) /lpf U Epithel Cells (Auto) (0-5) /lpf Urine Bacteria (Auto) (Negative) 01/30/20 01/30/20 01/30/20 Range/Units 09:45 10:22 10:22 WBC 8.05 RBC 4.12 L Hgb 13.2 Hct 38.5 MCV 93.4 MCH 32.0 MCHC 34.3 RDW Std Deviation 47.1 H RDW Coeff of Rosa 13.8 Plt Count 136 MPV 10.3 Immature Gran % (Auto) 0.6 Neut % (Auto) 73.4 Lymph % (Auto) 17.0 [place] % (Auto) 8.1 Eos % (Auto) 0.5 Baso % (Auto) 0.4 Neut # (Auto) 5.91 Lymph # (Auto) 1.37 [place] # (Auto) 0.65 H Eos # (Auto) 0.04 Baso # (Auto) 0.03 Immature Gran # (Auto) 0.05 H Absolute Nucleated RBC Nucleated RBC % (auto) Neutrophils % (Manual) Band Neutrophils % Lymphocytes % (Manual) Prolymphocyte % Reactive Lymphs % (Man) Monocytes % (Manual) Eosinophils % (Manual) Basophils % (Manual) Metamyelocytes % (Man) Myelocytes % (Man) Promyelocytes % (Man) Blast Cells % (Manual) Plasma Cell % (Manual) Other Cells % Nucleated RBC % Neutrophils # (Manual) Band Neutrophils # Total Absolute Neuts Lymphocytes # (Manual) Prolymphocyte # Reactive Lymphs # Total Abs Lymphocytes Monocytes # (Manual) Eosinophils # (Manual) Basophils # (Manual) Metamyelocytes # (Man) Myelocytes # (Manual) Promyelocytes # (Man) Blast Cells # (Man) Plasma Cell # (Manual) Other Cells # Nucleated RBCs # (Man) Hypersegmented Neuts Hyposegmented Neuts Hypogranular Neuts Large Granular Lymphs # Lrg Granular Lymphs Hairy Cells Smudge Cells Toxic Granulation Toxic Vacuolation Dohle Bodies Elizabeth Rods Platelet Estimate Hypogranular Platelets Clumped Platelets Giant Platelets Platelet Satelliting RBC Morphology Polychromasia Hypochromasia Poikilocytosis Basophilic Stippling Anisocytosis Microcytosis Macrocytosis Spherocytes Pappenheimer Bodies Sickle Cells Target Cells Tear Drop Cells Ovalocytes Stomatocytes Ahuja-Mcclave Bodies Echinocytes Acanthocytes (Spur) Rouleaux RBC Agglutinates Schistocytes RBC Morph Comment Sezary Cell PT (9.0-12.0) Seconds INR (0.9-1.1) APTT (21.0-31.0) Seconds PTT Ratio Sodium 139 Potassium 3.9 Chloride 107 Carbon Dioxide 23 Anion Gap 9.0 BUN 19 H Creatinine 0.91 Est Cr Clr Drug Dosing 74.3 Est GFR ( Amer) 78.4 Est GFR (Non-Af Amer) 67.6 BUN/Creatinine Ratio 20.9 H Glucose 122 H Calcium 8.9 Total Bilirubin 0.4 AST 22 ALT 27 Alkaline Phosphatase 81 Total Protein 7.0 Albumin 3.2 L Globulin 3.8 Albumin/Globulin Ratio 0.8 L Specimen Hemolysis Urine Color Yellow Urine Appearance Cloudy A (Clear) Urine pH 5.0 (4.5-7.5) Ur Specific [place] 1.039 H (1.000-1.030) Urine Protein Negative (Negative) Urine Glucose (UA) 3+ H (Negative) Urine Ketones Trace H (Negative) Urine Blood 3+ H (Negative) Urine Nitrite Negative (Negative) Urine Bilirubin Negative (Negative) Urine Urobilinogen Negative (Negative) Ur Leukocyte Esterase Trace H (Negative) Urine WBC (Auto) >30 H (0-5) /hpf Urine RBC (Auto) 5-10 H (0-4) /hpf U Hyaline Cast (Auto) 1-5 (0-5) /lpf U Epithel Cells (Auto) >30 H (0-5) /lpf Urine Bacteria (Auto) 1+ H (Negative) Administered Medications Enoxaparin Sodium (Enoxaparin Inj 40 Mg/0.4 Ml Syr) 40 mg SQ BID HETAL Stop: 02/29/20 20:59 Last Admin: 01/30/20 20:24 Dose: 40 mg Documented by: [id number] Gabapentin (Gabapentin 300 Mg Cap) 300 mg PO TID HETAL Stop: 02/29/20 15:58 Last Admin: 01/30/20 20:27 Dose: 300 mg Documented by: [id number] Admin: 01/30/20 17:33 Dose: 300 mg Documented by: [id number] Insulin Aspart (Insulin Aspart 100 Units/Ml 3 Ml Pen) 0 units SQ ACHS HETAL Stop: 02/29/20 16:29 Last Admin: 01/30/20 20:30 Dose: 4 units Documented by: [id number] Cosigned by: [id number] Admin: 01/30/20 17:35 Dose: 8 units Documented by: [id number] Cosigned by: [id number] Discontinued Medications Ceftriaxone Sodium (Rocephin) 2,000 mg in 70 mls @ 140 mls/hr IV NOW STA Stop: 01/30/20 08:39 Last Infusion: 01/30/20 10:14 Dose: 0 mls/hr Documented by: [id number] Admin: 01/30/20 09:26 Dose: 140 mls/hr Documented by: [id number] Daptomycin 475 mg/ Syringe 9.5 mls @ 4.75 mls/min IV NOW ONE; Protocol Stop: 01/30/20 11:51 Last Admin: 01/30/20 12:26 Dose: 4.75 mls/min Documented by: [id number] Discharge Plan Visit Data Chief Complaint: Arm Pain Stated Complaint: R UPPER ARM PAIN/REDNESS ED Provider: Tom Montero ED Midlevel Provider: Radha Gibson Discharge Problem: Cellulitis of right arm Patient Disposition: Admitted As Inpatient Discharge Instructions Interventions: ED Discharge Assessment Last Done: 01/30/20 15:04
[2020-01-30 09:43] LABS: Partial Thromboplastin Ratio 0.9; Partial Thromboplastin Time 25.4 Seconds (21.0-31.0); Prothrombin Time 10.3 Seconds (9.0-12.0)
[2020-01-30 09:50] LABS: Appearance Urine Cloudy (Clear); Bacteria Urine Automated 1+ (Negative); Bilirubin Urine Negative (Negative); Blood Urine 3+ (Negative); Color Urine Yellow; Epithelial Cell Urine Auto >30 /lpf (0-5); Glucose Urine UA 3+ (Negative); Ketones Urine Trace (Negative); Leukocyte Esterase Urine Trace (Negative); Nitrite Urine Negative (Negative); Protein Urine Negative (Negative); Specific Gravity Urine 1.039 (1.000-1.030); Urobilinogen Urine Negative (Negative); WBC Urine Automated >30 /hpf (0-5)
--- NOTE | 2020-01-30 10:13 | Ultrasound Report ---
RIGHT UPPER EXTREMITY VENOUS DOPPLER ULTRASOUND CLINICAL HISTORY: right arm pain, swelling, redness COMPARISON STUDY: Right upper extremity venous Doppler ultrasound October 13, 2019. FINDINGS: The right internal jugular, subclavian, axillary, cephalic, basilic, brachial, radial and u lnar veins are patent. No deep venous thrombus is identified within the right upper extremity. IMPRESSION: No deep venous thrombus within the right upper extremity. ACT 112: Negative or not required by law. Electronically signed by: Raman Peña M.D. 01/30/2020 10:12 AM
[2020-01-30 10:32] LABS: Basophils # (auto) 0.03 K/uL (0-0.2); Basophils % (auto) 0.4 %; Eosinophils # (auto) 0.04 K/uL (0-0.5); Eosinophils % (auto) 0.5 %; Hematocrit (blood only) 38.5 % (37-47); Hemoglobin 13.2 g/dL (12.0-16.0); Immature Granulocytes # (auto) 0.05 K/uL (0.00-0.02); Immature Granulocytes % (auto) 0.6 %; Lymphocytes # (auto) 1.37 K/uL (1.2-3.4); Mean Corpuscular Hgb Conc 34.3 g/dL (32-36); Mean Corpuscular Volume 93.4 fL (80-100); Mean Platelet Volume 10.3 fL (7.4-10.4); Monocytes # (auto) 0.65 K/uL (0.11-0.59); Monocytes % (auto) 8.1 %; Neutrophils # (auto) 5.91 K/uL (1.4-6.5); Neutrophils % (auto) 73.4 %; Platelet Count 136 K/uL (130-400); RDW Coefficient of Variation 13.8 % (11.5-14.5); RDW Standard Deviation 47.1 fL (36.4-46.3); Red Blood Count 4.12 M/uL (4.2-5.4); White Blood Count 8.05 K/uL (4.8-10.8)
[2020-01-30 10:50] LABS: Albumin Globulin Ratio 0.8 (0.9-2); Albumin Level 3.2 gm/dl (3.4-5.0); BUN Creatinine Ratio 20.9 (10-20); Bilirubin,Total 0.4 mg/dl (0.2-1); Calcium 8.9 mg/dl (8.5-10.1); Creatinine Clr Calc Pharmacy 74.3 ml/min; Est GFR (African American) 78.4; Est GFR (Non-African American) 67.6; Globulin 3.8 gm/dl (2.5-4.0); Potassium 3.9 mmol/L (3.5-5.1)
[2020-01-30] MEDS ORDERED: DAPTOmycin 475 MG in SYRINGE 0 ML IV ONE (11:50)
--- NOTE | 2020-01-30 12:02 | History & Physical Report ---
Date of Service January 30, 2020 Assessment & Plan (1) Cellulitis of right arm: -Admit to med surg on obs - worsening erythema of the R arm x 1d. Denies any fever, chills, sweats. She is able to move her arm with minor pain and her hand without difficulty. Since being triaged, within 1 hour, the redness has extended past the border that was initially marked involving over 50 % of the extremity, and now is down to the wrist, not involving the hand, and spreads up the the shoulder and is now on a portion of her back. - Continue IV antibiotics with ceftriaxone and daptomycin for now, can downgrade within 24 hours - Afebrile, no WBC - Outlined with skin marker - Supportive therapy with pain control - Can use warm compress for pain, elevate for improve lymphatic flow s/p lymph node removal (2) Malignant neoplasm of upper-outer quadrant of right breast in female, estrog en receptor positive: - infiltrating lobular carcinoma R breast cancer ER +, diagnosed in September 2017, s/p bilateral mastectomies, lymph node dissection stage pT1cp N0, s/p chemotherapy -Follows with Dr. Benson with [facility] [place] (3) DM II (diabetes mellitus, type II), controlled: - ISS with accuchecks achs- continue standing insulin aspart TID AC, 70 U HS - will consult glycemic pharmacy for management with acute infection - A1C 7.2 in June 2018, recheck - hold metformin (4) Benign essential HTN: - Hx of such, continue metoprolol succ 25 mg daily, losartan 100 mg daily, HCTZ 25 mg daily, Lasix 20 mg QAM prn, asa 81 mg (5) HLD (hyperlipidemia): - Not on statin therapy (6) Hypothyroidism: - Cont levothyroxine 25 mg daily (7) Anemia: - Well controlled, H&H 13.2/38.5 on admit (8) GERD (gastroesophageal reflux disease): - Diet controlled (9) Morbid obesity with BMI of 50.0-59.9, adult: - Diet and exercise to be encouraged, BMI of 53.8 on admission - Cont gabapentin 200 mg TID for chronic pain (10) Urinary frequency: - C/o such, pt reports foul smelling urine - UA appears dirty, follow culture, hx of UTIs without symptoms - Will continue abx as above (11) Vitamin D deficiency: - Cont supplementation DVT ppx: lovenox subq CODE: FULL Dispo: From home, likely to remain in hospital x 1 day History of Present Illness Primary Care Provider: Ashley Truong MD This is a 64 yo F with PMHx of infiltrating lobular carcinoma R breast cancer ER + stage pT1cp N0 diagnosed in September 2017, s/p bilateral mastectomies, lymph node dissection, s/p chemotherapy in June 2018 and XRT, DM II, HTN, HLD, GERD, who presents with worsening erythema of the R arm with concerns for cellulitis which started yesterday. Denies any fever, chills, sweats. She is able to move her arm with minor pain and her hand without difficulty. Since being triaged, within 1 hour, the redness has extended past the border that was initially marked involving over 50 % of the extremity, and now is down to the wrist, not involving the hand, and spreads up the the shoulder and is now on a portion of her back. Pt took her morning tresiba and sliding scale insulin. Lives at home with her who was just recently placed on hospice, and is hoping her daughter will be over to help care for him while she is admitted. Typically ambulates with rolling walker. Allergies Allergy/AdvReac Type Severity Reaction Status Date / Time adhesive Allergy Unknown "BLISTERS Verified 01/30/20 08:04 AND PULLS MY SKIN OFF" codeine AdvReac Mild Nausea Verified 01/30/20 08:04 erythromycin base AdvReac Unknown STOMACH Verified 01/30/20 08:04 PAIN indomethacin AdvReac Unknown "THINS Verified 01/30/20 08:04 BLOOD OUT TOO MUCH" valacyclovir [From Valtrex] AdvReac Unknown Palpitation Verified 01/30/20 08:04 s Home Medications Home Medications Medication Instructions Recorded Confirmed Type cholecalciferol (vitamin D3) 2,000 unit PO DAILY 02/23/18 01/30/20 History [Vitamin D3] ipratropium 0.5 mg-albuterol 3 mg 3 ml INH Q4H PRN #180 ml 08/30/18 01/30/20 Rx (2.5 mg base)/3 mL nebulization soln omega-3 acid ethyl esters 1 gram 2 g PO DAILY cap 08/30/18 01/30/20 History capsule silver sulfadiazine 1 % topical 1 applic TOP BID #50 gm 10/19/18 01/30/20 Rx cream cyanocobalamin (vitamin B-12) 1,000 mcg PO DAILY tab 11/30/18 01/30/20 History 1,000 mcg tablet meclizine 25 mg tablet 25 mg PO TID PRN tab 11/30/18 01/30/20 History cyclobenzaprine 10 mg tablet 10 mg PO TID PRN #20 tab 12/04/18 01/30/20 Rx levothyroxine 200 mcg tablet 200 mcg PO QAM tab 12/23/18 01/30/20 History levothyroxine 25 mcg tablet 25 mcg PO DAILY #90 tab 12/31/18 01/30/20 Rx gabapentin 300 mg capsule 300 mg PO TID #180 cap 01/22/19 01/30/20 Rx hydrochlorothiazide 25 mg tablet 25 mg PO DAILY #30 tab 03/08/19 01/30/20 Rx Novolog Flexpen U-100 Insulin 100 See Rx Instructions SQ TID #15 ml 03/26/19 Rx unit/mL (3 mL) subcutaneous NS Tresiba FlexTouch U-200 200 70 units SQ HS #18 ml NS 08/05/19 01/30/20 Rx unit/mL (3 mL) subcutaneous pen metformin 1,000 mg tablet 1,000 mg PO BID #60 tab 08/05/19 01/30/20 Rx losartan 100 mg tablet 100 mg PO DAILY #30 tab 10/13/19 01/30/20 Rx fluoxetine 40 mg capsule 40 mg PO QAM #90 cap 10/28/19 01/30/20 Rx metoprolol succinate 25 mg 25 mg PO DAILY #30 tab 10/28/19 01/30/20 Rx tablet,extended release 24 hr hydrocodone 5 mg-acetaminophen 325 See Rx Instructions PO Q6H PRN #45 12/02/19 01/30/20 Rx mg tablet tab ondansetron HCl 4 mg tablet 4 mg PO QID PRN #30 tab 01/28/20 01/30/20 Rx aspirin [Aspirin Low-Strength] 81 mg PO DAILY 01/30/20 01/30/20 History furosemide [Lasix] 20 mg PO QAM PRN 01/30/20 01/30/20 History Past Med/Surg History Medical History (Updated 01/30/20 @ 13:03 by Sharon Ross PA-C) Anemia Anxiety PANIC ATTACKS Benign essential HTN Breast cancer, right breast Cancer BREAST CANCER-RIGHT SIDE Degenerative disc disease Depression Depression Diabetes mellitus, type 2 INSULIN/ORAL MEDS- Diabetes mellitus, type 2 Disc degeneration, lumbar DM II (diabetes mellitus, type II), controlled Dyslipidemia Fatty liver GERD (gastroesophageal reflux disease) History of recent steroid use HLD (hyperlipidemia) Hx of breast cancer HX OF BILATERAL MASTECTOMY NOV 2017. DO NOT USE RIGHT ARM Hypertension Hypokalemia Hypothyroidism Hypothyroidism Infiltrating lobular carcinoma Malignant neoplasm of upper-outer quadrant of right breast in female, estrogen receptor positive Morbid obesity Morbid obesity with BMI of 50.0-59.9, adult Neutropenia Peripheral neuropathy secondary to back surgery Peripheral neuropathy Pneumonia hospitalization in June 2018 Sciatica Venous insufficiency Venous insufficiency (chronic) (peripheral) Vitamin D deficiency Surgical History (Updated 12/30/18 @ 12:19 by SONJA Dooley) History of adenoidectomy History of cardiac cath GREATER THAN 6 YRS AGO-NO STENTS-[facility] [place] History of section X 2 History of cholecystectomy History of dilatation and curettage History of hip surgery AN INFANT-LEFT SIDE History of laminectomy X 2 INCL FUSION-LUMBAR History of mastectomy BILATERAL, 12/15/17 @ [facility]. DO NOT USE RIGHT ARM History of tonsillectomy Family History (Updated 12/30/18 @ 12:21 by SONJA Dooley) Mother Family history of diabetes mellitus Heart disease Hypertension Kidney disease Father , age 57 Heart disease Hodgkins disease HLD (hyperlipidemia) Hypertension Sister Hypertension Daughter Colonic polyp Daughter Appendiceal carcinoid tumor had surgery age 22 / no other treatment Abnormal breast exam, Onset Age: 31 mammogram scheduled for 09-18-18 - 2 spots , 1 in each breast Aunt Gallbladder cancer, carcinoma Family/Other Breast cancer cousin Social History Smoking Status: Former smoker Tobacco Type: Cigarettes Age Started Using Tobacco: 21; packs per day: 1.5; Cigarettes Per Day: 30; Second Hand Exposure: Yes; Hx Alcohol Use: Yes Alcohol type: hard liquor Alcohol Intake Frequency Comment: drinks socially Hx Substance Use: No Preferred Language: Latvian Communication Ability: Effective Visual Impairment: No Limitations Hearing Ability: Normal Special Education Aide Required: No Beliefs That Will Affect Care: None marital status: Current Living Situation: Spouse current occupational status: retired 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 Feels Safe at Home: Yes Childhood Exposure to Second-Hand Smoke: Yes Assistive Devices: Walker Review of Systems Review of Systems: Constitutional: No fever, sweats or chills Eyes: No diplopia, no worsening or blurred vision ENT: normal hearing, no trouble swallowing Respiratory: No cough, sputum, dyspnea at rest or on exertion Cardiovascular: No chest pain, tightness or palpitations Abdomen: No pain, nausea, vomiting, diarrhea or constipation Musculoskeletal: RUE with erythema, swelling. No joint pain, calf pain, lower extremity swelling Neurologic: No weakness, numbness/tingling, or balance problems Psychiatric: No anxiety or depression Skin: + RUE erythema, swelling, no itching Physical Exam Physical Exam: General: awake, alert, no apparent distress, + morbidly obese Head: Normocephalic, atraumatic ENT: PERRL, EOMI, no pharyngeal exudate, mucous membranes moist Chest: Clear to auscultation, on room air, no adventitious breath sounds Cardiac: Regular rate and rhythm, no murmur, no JVD, normal peripheral pulses, good capillary refill Abdominal: NABS x 4 quadrants, soft, nondistended, nontender to palpation, no rebound or guarding Extremities: RUE: able to move her arm with minor pain and her hand without difficulty. Since being triaged, within 1 hour, the redness has extended past the border that was initially marked involving over 50 % of the extremity, extends from shoulder to the wrist, not involving the hand, also involves a portion of her back. Otherwise normal inspection, no peripheral edema or erythema, calfs nontender to palpation Psych: Normal mood and affect Neuro: AAO x 3, strength intact bilaterally and rated 5/5 in UE, 4/5 in BLE, no gross motor deficits, speech is clear, no peripheral sensory deficits Constitutional: WD/WN, vitals as above Eyes: normal visual hill by confrontation and + anicteric sclerae Neck: normal visual inspection and trachea midline Respiratory: normal respiratory effort, lungs clear to auscultation Cardiovascular: Rate/Rhythm: regular rate and regular rhythm Gastrointestinal (Abdomen): Inspection/Auscultation: abdomen not distended Percussion/Palpation: abdomen soft; abdomen nontender Musculoskeletal: Head/Neck/Chest: normocephalic and head atraumatic Neg for peripheral LE edema, + pedal pulses Skin: warm and dry with redness moving proximally and distally outside of lines drawn on initial presentation, new lines drawn Neurologic: awake; not confused Speech / Cognition: normal speech Psychiatric: A+Ox3, euthymic affect Lymphatic: Exam as done by Genet Doan DO Results & Data Results & Data ([facility]) Vital Signs (Past 12 Hours) Vital Signs Temp Pulse Pulse Resp BP BP Pulse Ox 01/30/20 11:14 83 20 151/88 H 97 01/30/20 09:24 86 20 155/93 H 97 01/30/20 07:31 36.5 C 67 18 209/95 H 95 Diagnostic Findings RIGHT UPPER EXTREMITY VENOUS DOPPLER ULTRASOUND CLINICAL HISTORY: right arm pain, swelling, redness COMPARISON STUDY: Right upper extremity venous Doppler ultrasound October 13, 2019. FINDINGS: The right internal jugular, subclavian, axillary, cephalic, basilic, brachial, radial and ulnar veins are patent. No deep venous thrombus is identified within the right upper extremity. IMPRESSION: No deep venous thrombus within the right upper extremity. Code Status & VTE Plan Code Status Full code - discussed with pt at bedside Supervising Physician Co-Signing Physician Notes Pt seen and examined by me. Denies chest pain or SOB. Tolerating PO without issue. First noticed redness yesterday around 2p and continuing to worsen today. Hx of LN removal on that side. Has chronic lymphedema since LN resection, but no hx of cellulitis. Feels fine otherwise. Agree with HPI/ROS as noted by PA See above for my exam in PE section Agree with plan as outlined above R UE cellulitis US neg for DVT ceftiaxone, dapto started in the ED, will continue WBC WNL, afebrile Blood cx pending UA noted for tr leuk est, neg nitrites, asx Urine cx pending Current abx would cover if UTI present Of note, pt's with recent hospice dx PG Care Time/CCT Total # of Minutes Spent Total Time Spent with Patient: Total time spent is greater than 50% in coordination of care (as documented) at patient's floor/unit and/or counseling patient: Coding Level of Care Code 60928 OBS Care - Level 3 Diagnoses Cellulitis of right arm L03.113 Malignant neoplasm of upper-outer quadrant of right breast in female, estrogen receptor positive C50.411; Z17.0 DM II (diabetes mellitus, type II), controlled E11.9 Benign essential HTN I10 HLD (hyperlipidemia) E78.5 Hypothyroidism E03.9 Anemia D64.9 GERD (gastroesophageal reflux disease) K21.9 Morbid obesity with BMI of 50.0-59.9, adult E66.01; Z68.43 Urinary frequency R35.0 Vitamin D deficiency E55.9
[2020-01-30] MEDS ORDERED: CARBOHYDRATES FOR HYPOGLYCEMIA PO PRN (15:59)
[2020-01-30] MEDS ORDERED: GLUCAGON FOR INJ 1 MG VIAL SQ PRN (15:59)
[2020-01-30] MEDS ORDERED: GLUCOSE 10 TABS/TUBE PO PRN (15:59)
[2020-01-30] MEDS ORDERED: GLUCOSE 40% GEL 15 GM TUBE PO PRN (15:59)
[2020-01-30] MEDS ORDERED: ACETAMINOPHEN 325 MG TAB PO PRN (15:59)
[2020-01-30] MEDS ORDERED: FUROSEMIDE 20 MG TAB PO PRN (15:59)
[2020-01-30] MEDS ORDERED: ONDANSETRON INJ 2 MG/ML 2 ML VIAL IV PRN (15:59)
[2020-01-30] MEDS ORDERED: ALBUT/IPRATROP 3MG/0.5MG NEB 3 ML VIAL INH PRN (15:59)
[2020-01-30] MEDS ORDERED: DEXTROSE 50% 50 ML SYRINGE IV PRN (15:59)
[2020-01-30] MEDS ORDERED: PHARMACY GLYCEMIC MGMT CONSULT PRN (16:04)
[2020-01-30] MEDS ORDERED: CYCLOBENZAPRINE HCL 10 MG TAB PO PRN (16:13)
[2020-01-30] MEDS ORDERED: ONDANSETRON 4 MG OD TAB PO PRN (16:35)
[2020-01-30] MEDS ORDERED: MECLIZINE HCL 25 MG TAB PO PRN (16:36)
[2020-01-30] MEDS ORDERED: HYDROCODONE/ACETAMOPHEN 5/325MG TAB PO PRN (16:37)
[2020-01-30] MEDS: GABAPENTIN 300 MG CAP PO SCH ×2 (17:33→20:27)
[2020-01-30] MEDS: INSULIN ASPART 100 UNITS/ML 3 ML PEN SQ SCH ×2 (17:35→20:30)
[2020-01-30] MEDS ORDERED: Nursing to Pharmacy Communication SCH (18:15)
--- NOTE | 2020-01-30 19:29 | Pharmacy Report ---
Pharmacy Glycemic Short Note 2 - Date of Service January 30, 2020 - Glycemic Short BSG Results (Last 24 hours): 01/30/20 01/30/20 01/30/20 08:57 10:22 16:24 Glucose Cancelled 122 H POC Glucose 161 H OUTPATIENT ANTIDIABETIC REGIMEN: * Per med rec: * Tresiba 70 units SQ qHS * Aspart TIDM (10 units/16 units/16 units) * A1c = 7.2 % (07/18/18) - updated value pending ASSESSMENT: * Kassi is a 64 yo T2DM female admitted with right arm cellulitis * During a previous admission in August of 2018 she required significantly less insulin as an inpatient (a total daily dose of 45 units produced excellent glycemic control). Her current home insulin doses appear to be similar to what they were at that time. Based on this data I will start with conservative doses of basal insulin. Will give 50% of home dose this evening then dose per scale. PLAN FOR INPATIENT GLYCEMIC CONTROL: * Hold outpatient oral diabetes medications * Basal insulin * Lantus 35 units SQ x 1 then per scale BID: * 15 units for BSG < 110 mg/dL * 20 units for BSG 110 - 180 mg/dL * 30 units for BSG > 180 mg/dL * Bolus insulin * NovoLog per scale ACHS or Q6hrs while NPO * Goal Range: Low 120 mg/dL - High 150 mg/dL * Correction Factor: 15 mg/dL/unit * Nutritional / Prandial insulin per carb ratio of 1 unit per 6 grams CHO consumed PLAN FOR DISCHARGE: * tbd
[2020-01-30] MEDS: ENOXAPARIN INJ 40 MG/0.4 ML SYR SQ SCH (20:24)
[2020-01-30] MEDS ORDERED: SILVER SULFADIAZINE 1% CR 50 GM JAR TOP SCH (21:00)
[2020-01-30] MEDS ORDERED: metFORMIN HCL 500 MG TAB PO SCH (21:00)
[2020-01-30] MEDS ORDERED: INSULIN GLARGINE SOLOSTAR 100 UNITS/ML 3 ML PEN SC SCH (21:00)
[2020-01-30] MEDS ORDERED: NON-FORMULARY MEDICATION (Insulin Degludec [Tresiba Flextouch U-200] 200 unit/mL (3 mL) in SQ SCH (21:00)
[2020-01-31] MEDS: LEVOTHYROXINE SODIUM 25 MCG TABLET PO SCH (06:17)
[2020-01-31] MEDS: LEVOTHYROXINE SODIUM 200 MCG TABLET PO SCH (06:17)
[2020-01-31 06:30] LABS: Hematocrit (blood only) 39.9 % (37-47); Hemoglobin 13.5 g/dL (12.0-16.0); Mean Corpuscular Hemoglobin 32.3 pg (25-34); Mean Corpuscular Hgb Conc 33.8 g/dL (32-36); Mean Corpuscular Volume 95.5 fL (80-100); Platelet Count 140 K/uL (130-400); RDW Standard Deviation 48.7 fL (36.4-46.3); Red Blood Count 4.18 M/uL (4.2-5.4); White Blood Count 6.98 K/uL (4.8-10.8)
[2020-01-31 06:57] LABS: Estimated Average Glucose 240 mg/dl
[2020-01-31 07:01] LABS: Albumin Level 3.1 gm/dl (3.4-5.0); BUN Creatinine Ratio 18.5 (10-20); Calcium 8.5 mg/dl (8.5-10.1); Creatinine Clr Calc Pharmacy 66.7 ml/min; Est GFR (African American) 69.9; Est GFR (Non-African American) 60.3; Magnesium 1.9 mg/dl (1.8-2.4); Potassium 3.6 mmol/L (3.5-5.1)
[2020-01-31 07:06] LABS: Albumin Globulin Ratio 0.9 (0.9-2); Bilirubin,Total 0.6 mg/dl (0.2-1); Globulin 3.6 gm/dl (2.5-4.0); Phosphorus 3.2 mg/dl (2.5-4.9); Total Protein 6.7 gm/dl (6.4-8.2)
[2020-01-31] MEDS: GABAPENTIN 300 MG CAP PO SCH ×3 (08:25→20:50)
[2020-01-31] MEDS: FLUoxetine HCL 20 MG CAP PO SCH (08:25)
[2020-01-31] MEDS: OMEGA-3 (PURIFIED FISH OIL) 1 GM CAP PO SCH (08:26)
[2020-01-31] MEDS: METOPROLOL SUCC 25MG EXT REL TAB PO SCH (08:26)
[2020-01-31] MEDS: CYANOCOBALAMIN 500 MCG TABLET (VITAMIN B-12) PO SCH (08:26)
[2020-01-31] MEDS: CHOLECALCIFEROL 1,000 UNITS 25 MCG TAB PO SCH (08:26)
[2020-01-31] MEDS: ASPIRIN 81 MG ECTAB PO SCH (08:26)
[2020-01-31] MEDS: hydroCHLOROthiazide 25 MG TAB PO SCH (08:26)
[2020-01-31] MEDS: LOSARTAN POTASSIUM 50 MG TAB PO SCH (08:27)
[2020-01-31] MEDS: INSULIN ASPART 100 UNITS/ML 3 ML PEN SQ SCH ×4 (08:30→20:55)
[2020-01-31] MEDS: INSULIN GLARGINE SOLOSTAR 100 UNITS/ML 3 ML PEN SC SCH (08:31)
[2020-01-31] MEDS: ENOXAPARIN INJ 40 MG/0.4 ML SYR SQ SCH ×2 (08:32→20:49)
[2020-01-31] MEDS: cefTRIAXone SODIUM 2,000 MG in DEXTROSE 5% 50 ML IV SCH (08:59)
[2020-01-31] MEDS ORDERED: INFLUENZA VIRUS QUAD VACCINE 0.5 ML SYR IM ONE (09:00)
[2020-01-31] MEDS ORDERED: INSULIN GLARGINE SOLOSTAR 100 UNITS/ML 3 ML PEN SC SCH (09:00)
[2020-01-31] MEDS ORDERED: INFLUENZA ADMINISTRATION CHARGE ONE (09:00)
--- NOTE | 2020-01-31 10:46 | Pharmacy Report ---
Glycemic Control Progress Note - Date of Service January 31, 2020 - Scope Glycemic Pharmacist consulted for glycemic control to write orders per [facility] inpatient glycemic control protocol. - Objective Accuchecks BSG(last 24 hours):: 01/30/20 01/30/20 01/30/20 10:22 16:24 20:00 Glucose 122 H POC Glucose 161 H 206 H 01/31/20 01/31/20 06:01 07:45 Glucose 168 H POC Glucose 175 H HbA1c:: Hemoglobin A1c 10.0 % (4.5-5.6) H 01/31/20 06:01 - Recent Pertinent Medications The patient is currently receiving: * Basal insulin: Lantus 15-30 units every 12 hours (no doses received yet as she took home dose of Tresiba 72 units morning of 01/30/20) * Correctional Insulin: Novolog Correction per scale ACHS Goal Range: Low 120 mg/dL - High 150 mg/dL Correction Factor: 15 mg/dL/unit * Prandial insulin: Per carb ratio of 1 unit per 5 grams CHO consumed - Outpatient Anti-Diabetic Meds Tresiba 72 units HS (but took morning of 01/30/2020) Novolog 01/07/16 Metformin - Assessment & Plan ASSESSMENT: * See progress note from 01/30/2020 for more background info, in short: * Pt receiving SQ basal bolus insulin regimen for hyperglycemia secondary to baseline DM (outpatient regimen on hold), Infection (progressive cellulitis currently on daptomycin). * Patient is currently receiving an average of 84 units of insulin per day * 72 units of basal insulin * 12 units of prandial/correctional insulin * BSGs ranging 122 - 206 mg/dl over the past 24hrs * Changes needed to insulin regimen: * AM Fasting BSG = 175 mg/dl. This is slightly above goal range for patient based on inpatient targets and co-morbidities. Patient received her home dose of Tresiba 72 units yesterday. Will give 60% of basal dose today or 40 units as patient's home regimen is decently basal heavy. Desire to keep once daily dosing for ease of transition back home. * Post-prandial BSGs are not able to be evaluated at this time due to paucity of data. * Total daily dose = ? units. * Additional notes / comments: hold metformin due to acute infection PLAN FOR INPATIENT GLYCEMIC CONTROL: * Starting Lantus 40units SQ daily * Continuing correction factor of 15 mg/dl/unit * Continuing carb ratio of 1 unit per 5 grams CHO consumed * Continuing goal range of Low 120 mg/dL - High 150 mg/dL * Please note that the plan above was derived based on current level of insulin resistance and hospital stress. These recommendations are appropriate for inpatient admission only. Plan of care upon discharge will need to be reassessed to avoid potential outpatient hypo/hyperglycemia. Thank you.
[2020-01-31] MEDS ORDERED: DAPTOmycin 400 MG in SYRINGE 0 ML IV SCH (12:00)
--- NOTE | 2020-01-31 12:50 | Hospitalist Progress Note ---
Date of Service January 31, 2020 Assessment & Plan (1) Cellulitis of right arm: -Admit to med surg on obs - Improving - Started on ceftriaxone and daptomycin in the ED, will d/c dapto today given improvement (last dose 01/30 12:15p, total of two doses) - Afebrile, no WBC Hx of baseline lymphedema in R UE due to LN resection 09/2017 for breast cancer (2) Malignant neoplasm of upper-outer quadrant of right breast in female, estrogen receptor positive: - infiltrating lobular carcinoma R breast cancer ER +, diagnosed in September 2017, s/p bilateral mastectomies, lymph node dissection stage pT1cp N0, s/p chemotherapy -Follows with Dr. Benson with [facility] [place] (3) DM II (diabetes mellitus, type II), controlled: - ISS with accuchecks achs- continue standing insulin aspart TID AC, 70 U HS - will consult glycemic pharmacy for management with acute infection - A1C 7.2 in June 2018, now 10.0 - hold metformin (4) Benign essential HTN: - Hx of such, continue metoprolol succ 25 mg daily, losartan 100 mg daily, HCTZ 25 mg daily, Lasix 20 mg QAM prn, asa 81 mg (5) HLD (hyperlipidemia): - Not on statin therapy Lipids pending (6) Hypothyroidism: - Cont levothyroxine 25 mg daily (7) Anemia: - Well controlled, H&H 13.2/38.5 on admit (8) GERD (gastroesophageal reflux disease): - Diet controlled (9) Morbid obesity with BMI of 50.0-59.9, adult: - Diet and exercise to be encouraged, BMI of 53.8 on admission - Cont gabapentin 200 mg TID for chronic pain (10) Urinary frequency: - C/o such, pt reports foul smelling urine - UA appears dirty, follow culture, hx of UTIs without symptoms UA noted for tr leuk est, neg nitrites with cx pending - Will continue abx as above (11) Vitamin D deficiency: - Cont supplementation DVT ppx: lovenox subq CODE: FULL Dispo: monitor overnight with de-escalating abx given severity of cellulitis on admission with ongoing severe skin discoloration in some regions Admission and Anticipated Discharge Date Admission Date: January 30, 2020 Subjective Pt states her R UE feels much improved today. The redness is resolving from the lines. Less swelling, less pain. She states she can now drop her arm down by her side, which she could not do yesterday. Pt denies fever, SOB, chest pain, abd pain, n/v/c/d, LE pain or swelling. Review of Systems Review of Systems: Constitutional: No fever, sweats or chills Eyes: No diplopia, no worsening or blurred vision ENT: normal hearing, no trouble swallowing Respiratory: No cough, sputum, dyspnea at rest or on exertion Cardiovascular: No chest pain, tightness or palpitations Abdomen: No pain, nausea, vomiting, diarrhea or constipation Musculoskeletal: RUE with erythema, swelling. No joint pain, calf pain, lower extremity swelling Neurologic: No weakness, numbness/tingling, or balance problems Psychiatric: No anxiety or depression Skin: + RUE erythema, swelling, no itching Physical Exam Constitutional: WD/WN, vitals as above Eyes: normal visual hill by confrontation and + anicteric sclerae Neck: normal visual inspection and trachea midline Respiratory: normal respiratory effort, lungs clear to auscultation Cardiovascular: Rate/Rhythm: regular rate and regular rhythm Gastrointestinal (Abdomen): Inspection/Auscultation: abdomen not distended Percussion/Palpation: abdomen soft; abdomen nontender Musculoskeletal: Head/Neck/Chest: normocephalic and head atraumatic Skin: Improving from both sets of lines drawn, new lines placed today Still very dark red in some areas Decreased swelling and warmth Neurologic: awake; not confused Speech / Cognition: normal speech Psychiatric: A+Ox3, euthymic affect Results & Data Results & Data ([facility]) Vital Signs (Past 12 Hours) Vital Signs Temp Pulse Resp BP Pulse Ox 01/31/20 07:57 36.4 C L 80 18 133/84 97 01/31/20 03:50 36.7 C 82 20 165/89 H 96 PG Care Time/CCT Total # of Minutes Spent Total Time Spent with Patient: Total time spent is greater than 50% in coordination of care (as documented) at patient's floor/unit and/or counseling patient: Coding Level of Care Code 94021 Subseq Obs Care Lvl 3 Diagnoses Cellulitis of right arm L03.113 Malignant neoplasm of upper-outer quadrant of right breast in female, estrogen receptor positive C50.411; Z17.0 DM II (diabetes mellitus, type II), controlled E11.9 Benign essential HTN I10 HLD (hyperlipidemia) E78.5 Hypothyroidism E03.9 Anemia D64.9 GERD (gastroesophageal reflux disease) K21.9 Morbid obesity with BMI of 50.0-59.9, adult E66.01; Z68.43 Urinary frequency R35.0 Vitamin D deficiency E55.9
[2020-02-01] MEDS: LEVOTHYROXINE SODIUM 200 MCG TABLET PO SCH (05:36)
[2020-02-01] MEDS: LEVOTHYROXINE SODIUM 25 MCG TABLET PO SCH (05:36)
[2020-02-01 07:11] LABS: Hematocrit (blood only) 38.7 % (37-47); Hemoglobin 13.2 g/dL (12.0-16.0); Mean Corpuscular Hemoglobin 32.6 pg (25-34); Mean Corpuscular Hgb Conc 34.1 g/dL (32-36); Mean Corpuscular Volume 95.6 fL (80-100); Platelet Count 134 K/uL (130-400); Red Blood Count 4.05 M/uL (4.2-5.4); White Blood Count 7.47 K/uL (4.8-10.8)
[2020-02-01 07:43] LABS: Albumin Globulin Ratio 0.9 (0.9-2); Albumin Level 3.1 gm/dl (3.4-5.0); BUN Creatinine Ratio 26.6 (10-20); Bilirubin,Total 0.6 mg/dl (0.2-1); Calcium 8.8 mg/dl (8.5-10.1); Creatinine Clr Calc Pharmacy 64.1 ml/min; Est GFR (African American) 66.7; Est GFR (Non-African American) 57.5; Globulin 3.6 gm/dl (2.5-4.0); Potassium 3.6 mmol/L (3.5-5.1); Total Protein 6.7 gm/dl (6.4-8.2)
[2020-02-01] MEDS: GABAPENTIN 300 MG CAP PO SCH ×2 (09:03→13:43)
[2020-02-01] MEDS: CYANOCOBALAMIN 500 MCG TABLET (VITAMIN B-12) PO SCH (09:03)
[2020-02-01] MEDS: METOPROLOL SUCC 25MG EXT REL TAB PO SCH (09:04)
[2020-02-01] MEDS: CHOLECALCIFEROL 1,000 UNITS 25 MCG TAB PO SCH (09:04)
[2020-02-01] MEDS: FLUoxetine HCL 20 MG CAP PO SCH (09:04)
[2020-02-01] MEDS: ASPIRIN 81 MG ECTAB PO SCH (09:04)
[2020-02-01] MEDS: hydroCHLOROthiazide 25 MG TAB PO SCH (09:05)
[2020-02-01] MEDS: LOSARTAN POTASSIUM 50 MG TAB PO SCH (09:05)
[2020-02-01] MEDS: OMEGA-3 (PURIFIED FISH OIL) 1 GM CAP PO SCH (09:05)
[2020-02-01] MEDS: cefTRIAXone SODIUM 2,000 MG in DEXTROSE 5% 50 ML IV SCH (09:10)
[2020-02-01] MEDS: ENOXAPARIN INJ 40 MG/0.4 ML SYR SQ SCH (09:10)
[2020-02-01] MEDS: INSULIN GLARGINE SOLOSTAR 100 UNITS/ML 3 ML PEN SC SCH (09:11)
[2020-02-01] MEDS: INSULIN ASPART 100 UNITS/ML 3 ML PEN SQ SCH ×2 (09:13→13:02)
--- NOTE | 2020-02-01 10:07 | Pharmacy Report ---
Pharmacy Glycemic Short Note 2 - Date of Service February 01, 2020 - Glycemic Short BSG Results (Last 24 hours): 01/31/20 01/31/20 01/31/20 11:39 16:35 20:55 Glucose POC Glucose 219 H 172 H 119 H 02/01/20 02/01/20 06:38 08:14 Glucose 158 H POC Glucose 151 H OUTPATIENT ANTIDIABETIC REGIMEN: * Tresiba 70 units SQ qHS * Aspart TIDM (10 units/16 units/16 units) * metformin ASSESSMENT: 01/31 * Patient received total of 76 units of insulin yesterday, of which 40 were basal insulin * Fasting BSG 151 mg/dL - continue same basal insulin * Continue same CF/CR for now PLAN FOR INPATIENT GLYCEMIC CONTROL: * Hold outpatient oral diabetes medications * Basal insulin * Lantus 40 units daily * Bolus insulin * NovoLog per scale ACHS or Q6hrs while NPO * Goal Range: Low 120 mg/dL - High 150 mg/dL * Correction Factor: 15 mg/dL/unit * Nutritional / Prandial insulin per carb ratio of 1 unit per 5 grams CHO consumed PLAN FOR DISCHARGE: * A1c of 10% indicates poor glucose control outpatient. * Patient met with DM educator and patient admits stopping her metformin several months back. Not clear for reasoning for this. Patient under increased stress lately and eating habits not regular * Agree with DM educator and would recommend restarting metformin as long as no contraindications present. Could consider metformin XR 500 mg daily and would titrate as appropriate outpatient to minimize GI side effects * Per DM educator notes, patient reports seeing PA at local Endo office for diabetes management. Would recommend followup with them for any insulin adjustments
--- NOTE | 2020-02-01 11:22 | Medical Student Progress Note ---
Date of Service February 01, 2020 Assessment & Plan (1) Cellulitis of right arm: The redness, tenderness, and warmth of the patches around the arm were consistent with cellulitis. A an ultrasound was ordered to rule out the possibility of a DVT in the arm which came out negative. The Hx of the cat scratch on her back around the area that that is red seems like a likely route of infection although it was a week ago and the pt states adequate cleaning of the wound. The pt is Right handed and after the mastectomy and lymph node removal surgeries has has some minor restriction of her R arm, but ROM is normal and pt notes only minor weakness of the right arm. In the ER pt was given cetria xone and daptomycin. Blood cultures were taken and came back negative. Pt has been afebrile throughout the ordeal and has had a normal WBC count. 01/31- Pt is improving today, with a a lot of the initial redness receding. Pt only feels some itchiness but the pain as subsided to a 1/10 and the area is not warm to touch. Daptomycin was discontinued today with a total of 2 doses given. Continue the ceftriaxone as her symptoms are improving.Possibly Consider switching to oral Abx such as cefdinir or other cephalosporin either today or tomorrow in order to help transition her to outpatient management if symptoms continue to improve. (2) Urinary tract infection: Pt has incerased urinary frequency with foul smelling urine, w/o dysuria. UA was positive for RBC, trace Leukoesterase, and WBC casts. Subsequent culture revealed E. Coli growth with susceptibilities to all Abx and Alpha strep. 01/31- Pt could continue cephtriaxone for the UTI, or could maybe consider switching to an oral medicine for outpatient management. (3) Uncontrolled type 2 diabetes mellitus with insulin therapy: Pt's HbA1C was 10.0 and POC glucose was 158 which is down from 198. Pharmacy is titrating insulin aspart dose. Currently TID. Metformin is currently being held. (4) Hypothyroidism: Pt's TSH is normal at 1.81. Continue home levothyroxine regime of 25mg. Admission and Anticipated Discharge Date Admission Date: January 30, 2020 Subjective Pt is a 64 yo F w/ PMH of uncontrolled DMII and Breast Cancer with Bilateral mastectomy with axillary lymphnode removal that came in 2 days w/ R upper arm pain and redness. Noticed it 3 days ago on the inside of her arm and had spread to the whole upper arm as well as some redness on her back that was noticed by her daughter. The arm was red,painful, and hot to the touch. Her daughter advised her to go to the ER. She doesn't remember any trauma, cuts, or insect bites to the area. Does note however that about a week prior, her cat had accidently scratched her on her back on the Right side by the scapular. The area was cleaned with H2O2 and pt is unsure if that can be related because she took good care of it. Does note a recent history of lymphedema. In the ER, the redness was down to her lower arm without hand involvement. Today, she is feeling a lot better. The arm pain has improved to a 1/10. Pt is only noting some itching as of today around the R arm and shoulder. Pt has also noted that her urine has been a little foul smelling and has had increased urinary frequency. Review of Systems Review of Systems: All systems reviewed & are unremarkable except as noted in Subjective Constitutional: no fever, no sweats, no body aches and no malaise Eyes: no diplopia and no worsening vision Ear, Nose, Mouth, Throat: no dizziness Respiratory: no cough and no dyspnea Cardiovascular: + edema; no chest pain and no palpitations Gastrointestinal: no nausea and no vomiting Genitourinary: + urinary frequency; no dysuria Integumentary: as per Subjective / HPI Hematologic / Lymphatic: as per Subjective / HPI Physical Exam Constitutional: well developed, + obese and comfortable Eyes: PERRL, conjunctivae normal, anicteric sclerae ENMT: Ears: no hearing impairment Neck: normal visual inspection Respiratory: no respiratory distress, no cough and not tachypneic Auscultation: lungs clear to auscultation bilaterally; no crackles, no rales, no rhonchi and no wheezes Cardiovascular: Rate/Rhythm: regular rate and regular rhythm Heart Sounds: no gallop, no murmur and no cardiac rub Vessels: no carotid bruit Extremities: + edema (R upper arm and forearm) Chest (Breasts): Additional Comments: Bilateral mastectomy 2019 Gastrointestinal (Abdomen): Inspection/Auscultation: abdomen normal to inspection; abdomen not distended Musculoskeletal: Shoulder: + skin erythema; no ecchymosis Skin: R arm erythema is receeding. Not TTP nor warm to touch. Has some redness on the ride side of her back by the scapular and redness on outer and inner part of the upper extremity. Redness on lower forearm has since resolved with just some residual edema. Results & Data ([facility]) Vital Signs (Past 12 Hours) Vital Signs Temp Pulse Resp BP Pulse Ox 02/01/20 07:15 37.2 C 72 19 138/83 95 02/01/20 00:05 36.8 C 67 18 120/72 96 Laboratory Results CBC was with normal limits CMP showed an elevated BUN and glucose. A1C is high at 10.0 Coagulation studies are normal UA was positive for blood, trace leukoesterase, and glucose. WBC casts were present Laboratory Results WBC 7.47 K/uL (4.8-10.8) 02/01/20 06:38 RBC 4.05 M/uL (4.2-5.4) L 02/01/20 06:38 Hgb 13.2 g/dL (12.0-16.0) 02/01/20 06:38 Hct 38.7 % (37-47) 02/01/20 06:38 MCV 95.6 fL (80-100) 02/01/20 06:38 MCH 32.6 pg (25-34) 02/01/20 06:38 MCHC 34.1 g/dL (32-36) 02/01/20 06:38 RDW Std Deviation 48.7 fL (36.4-46.3) H 01/31/20 06:01 RDW Coeff of Rosa 14.0 % (11.5-14.5) 01/31/20 06:01 Plt Count 134 K/uL (130-400) 02/01/20 06:38 MPV 10.0 fL (7.4-10.4) 01/31/20 06:01 Immature Gran % (Auto) 0.6 % 01/30/20 10:22 Neut % (Auto) 73.4 % 01/30/20 10:22 Lymph % (Auto) 17.0 % 01/30/20 10:22 [place] % (Auto) 8.1 % 01/30/20 10:22 Eos % (Auto) 0.5 % 01/30/20 10:22 Baso % (Auto) 0.4 % 01/30/20 10:22 Neut # (Auto) 5.91 K/uL (1.4-6.5) 01/30/20 10:22 Lymph # (Auto) 1.37 K/uL (1.2-3.4) 01/30/20 10:22 [place] # (Auto) 0.65 K/uL (0.11-0.59) H 01/30/20 10:22 Eos # (Auto) 0.04 K/uL (0-0.5) 01/30/20 10:22 Baso # (Auto) 0.03 K/uL (0-0.2) 01/30/20 10:22 Immature Gran # (Auto) 0.05 K/uL (0.00-0.02) H 01/30/20 10:22 Absolute Nucleated RBC Cancelled 01/30/20 08:57 Nucleated RBC % (auto) Cancelled 01/30/20 08:57 Neutrophils % (Manual) Cancelled 01/30/20 08:57 Band Neutrophils % Cancelled 01/30/20 08:57 Lymphocytes % (Manual) Cancelled 01/30/20 08:57 Prolymphocyte % Cancelled 01/30/20 08:57 Reactive Lymphs % (Man) Cancelled 01/30/20 08:57 Monocytes % (Manual) Cancelled 01/30/20 08:57 Eosinophils % (Manual) Cancelled 01/30/20 08:57 Basophils % (Manual) Cancelled 01/30/20 08:57 Metamyelocytes % (Man) Cancelled 01/30/20 08:57 Myelocytes % (Man) Cancelled 01/30/20 08:57 Promyelocytes % (Man) Cancelled 01/30/20 08:57 Blast Cells % (Manual) Cancelled 01/30/20 08:57 Plasma Cell % (Manual) Cancelled 01/30/20 08:57 Other Cells % Cancelled 01/30/20 08:57 Nucleated RBC % Cancelled 01/30/20 08:57 Neutrophils # (Manual) Cancelled 01/30/20 08:57 Band Neutrophils # Cancelled 01/30/20 08:57 Total Absolute Neuts Cancelled 01/30/20 08:57 Lymphocytes # (Manual) Cancelled 01/30/20 08:57 Prolymphocyte # Cancelled 01/30/20 08:57 Reactive Lymphs # Cancelled 01/30/20 08:57 Total Abs Lymphocytes Cancelled 01/30/20 08:57 Monocytes # (Manual) Cancelled 01/30/20 08:57 Eosinophils # (Manual) Cancelled 01/30/20 08:57 Basophils # (Manual) Cancelled 01/30/20 08:57 Metamyelocytes # (Man) Cancelled 01/30/20 08:57 Myelocytes # (Manual) Cancelled 01/30/20 08:57 Promyelocytes # (Man) Cancelled 01/30/20 08:57 Blast Cells # (Man) Cancelled 01/30/20 08:57 Plasma Cell # (Manual) Cancelled 01/30/20 08:57 Other Cells # Cancelled 01/30/20 08:57 Nucleated RBCs # (Man) Cancelled 01/30/20 08:57 Hypersegmented Neuts Cancelled 01/30/20 08:57 Hyposegmented Neuts Cancelled 01/30/20 08:57 Hypogranular Neuts Cancelled 01/30/20 08:57 Large Granular Lymphs Cancelled 01/30/20 08:57 # Lrg Granular Lymphs Cancelled 01/30/20 08:57 Hairy Cells Cancelled 01/30/20 08:57 Smudge Cells Cancelled 01/30/20 08:57 Toxic Granulation Cancelled 01/30/20 08:57 Toxic Vacuolation Cancelled 01/30/20 08:57 Dohle Bodies Cancelled 01/30/20 08:57 Elizabeth Rods Cancelled 01/30/20 08:57 Platelet Estimate Cancelled 01/30/20 08:57 Hypogranular Platelets Cancelled 01/30/20 08:57 Clumped Platelets Cancelled 01/30/20 08:57 Giant Platelets Cancelled 01/30/20 08:57 Platelet Satelliting Cancelled 01/30/20 08:57 RBC Morphology Cancelled 01/30/20 08:57 Polychromasia Cancelled 01/30/20 08:57 Hypochromasia Cancelled 01/30/20 08:57 Poikilocytosis Cancelled 01/30/20 08:57 Basophilic Stippling Cancelled 01/30/20 08:57 Anisocytosis Cancelled 01/30/20 08:57 Microcytosis Cancelled 01/30/20 08:57 Macrocytosis Cancelled 01/30/20 08:57 Spherocytes Cancelled 01/30/20 08:57 Pappenheimer Bodies Cancelled 01/30/20 08:57 Sickle Cells Cancelled 01/30/20 08:57 Target Cells Cancelled 01/30/20 08:57 Tear Drop Cells Cancelled 01/30/20 08:57 Ovalocytes Cancelled 01/30/20 08:57 Stomatocytes Cancelled 01/30/20 08:57 Ahuja-Vanndale Bodies Cancelled 01/30/20 08:57 Echinocytes Cancelled 01/30/20 08:57 Acanthocytes (Spur) Cancelled 01/30/20 08:57 Rouleaux Cancelled 01/30/20 08:57 RBC Agglutinates Cancelled 01/30/20 08:57 Schistocytes Cancelled 01/30/20 08:57 RBC Morph Comment Cancelled 01/30/20 08:57 Sezary Cell Cancelled 01/30/20 08:57 PT 10.3 Seconds (9.0-12.0) 01/30/20 08:57 INR 1.0 (0.9-1.1) 01/30/20 08:57 APTT 25.4 Seconds (21.0-31.0) 01/30/20 08:57 PTT Ratio 0.9 01/30/20 08:57 Sodium 137 mmol/L (136-145) 02/01/20 06:38 Potassium 3.6 mmol/L (3.5-5.1) 02/01/20 06:38 Chloride 105 mmol/L (98-107) 02/01/20 06:38 Carbon Dioxide 25 mmol/L (21-32) 02/01/20 06:38 Anion Gap 7.0 (3-11) 02/01/20 06:38 BUN 28 mg/dl (7-18) H D 02/01/20 06:38 Creatinine 1.04 mg/dl (0.6-1.2) 02/01/20 06:38 Est Cr Clr Drug Dosing 64.1 ml/min 02/01/20 06:38 Est GFR ( Amer) 66.7 02/01/20 06:38 Est GFR (Non-Af Amer) 57.5 02/01/20 06:38 BUN/Creatinine Ratio 26.6 (10-20) H 02/01/20 06:38 Glucose 158 mg/dl (70-99) H 02/01/20 06:38 POC Glucose 151 mg/dl (70-99) H 02/01/20 08:14 Estimat Average Glucose 240 mg/dl 01/31/20 06:01 Hemoglobin A1c 10.0 % (4.5-5.6) H 01/31/20 06:01 Calcium 8.8 mg/dl (8.5-10.1) 02/01/20 06:38 Phosphorus 3.2 mg/dl (2.5-4.9) 01/31/20 06:01 Magnesium 1.9 mg/dl (1.8-2.4) 01/31/20 06:01 Total Bilirubin 0.6 mg/dl (0.2-1) 02/01/20 06:38 AST 27 U/L (15-37) 02/01/20 06:38 ALT 28 U/L (12-78) 02/01/20 06:38 Alkaline Phosphatase 75 U/L (45-117) 02/01/20 06:38 Total Protein 6.7 gm/dl (6.4-8.2) 02/01/20 06:38 Albumin 3.1 gm/dl (3.4-5.0) L 02/01/20 06:38 Globulin 3.6 gm/dl (2.5-4.0) 02/01/20 06:38 Albumin/Globulin Ratio 0.9 (0.9-2) 02/01/20 06:38 Triglycerides 197 mg/dl (0-150) H 01/31/20 06:01 Cholesterol 250 mg/dl (0-200) H 01/31/20 06:01 LDL Cholesterol, Calc 141 mg/dl 01/31/20 06:01 VLDL Cholesterol, Calc 39 mg/dl 01/31/20 06:01 HDL Cholesterol 70 mg/dl 01/31/20 06:01 Cholesterol/HDL Ratio 4 01/31/20 06:01 Specimen Hemolysis 02/01/20 06:38 Urine Color Yellow 01/30/20 09:45 Urine Appearance Cloudy (Clear) A 01/30/20 09:45 Urine pH 5.0 (4.5-7.5) 01/30/20 09:45 Ur Specific [place] 1.039 (1.000-1.030) H 01/30/20 09:45 Urine Protein Negative (Negative) 01/30/20 09:45 Urine Glucose (UA) 3+ (Negative) H 01/30/20 09:45 Urine Ketones Trace (Negative) H 01/30/20 09:45 Urine Blood 3+ (Negative) H 01/30/20 09:45 Urine Nitrite Negative (Negative) 01/30/20 09:45 Urine Bilirubin Negative (Negative) 01/30/20 09:45 Urine Urobilinogen Negative (Negative) 01/30/20 09:45 Ur Leukocyte Esterase Trace (Negative) H 01/30/20 09:45 Urine WBC (Auto) >30 /hpf (0-5) H 01/30/20 09:45 Urine RBC (Auto) 5-10 /hpf (0-4) H 01/30/20 09:45 U Hyaline Cast (Auto) 1-5 /lpf (0-5) 01/30/20 09:45 U Epithel Cells (Auto) >30 /lpf (0-5) H 01/30/20 09:45 Urine Bacteria (Auto) 1+ (Negative) H 01/30/20 09:45 Hepatitis C Ab Screen Neg (Neg) 01/31/20 06:01
[2020-02-01 15:32] VITALS: BP 117/75; PULSE 75; TEMP 97.5; O2SAT 97
== END 2020-02-01 18:13 | disposition home or self-care (01) ==
LOC: ED 07:20 → 2N 07:20 → SUATTDRO 12:48 → 2N 15:04 → 3N 02-01 01:24
DX: E55.9 Vitamin D deficiency, unspecified; Z68.43 Body mass index [BMI] 50.0-59.9, adult; Z79.4 Long term (current) use of insulin; Z79.899 Other long term (current) drug therapy; L03.113 Cellulitis of right upper limb; K21.9 Gastro-esophageal reflux disease without esophagitis; E11.9 Type 2 diabetes mellitus without complications; Z79.890 Hormone replacement therapy; Z87.891 Personal history of nicotine dependence; E03.9 Hypothyroidism, unspecified; E66.01 Morbid (severe) obesity due to excess calories; N39.0 Urinary tract infection, site not specified; I10 Essential (primary) hypertension; E78.5 Hyperlipidemia, unspecified

== ENCOUNTER 2023-01-25 15:19 | Inpatient (IN) ==
[2023-01-25] MEDS ORDERED: cefTRIAXone SODIUM 2,000 MG/50 ML BAG IV STA (15:44)
[2023-01-25] MEDS ORDERED: SODIUM CHLORIDE 0.9% 1,000 ML IV ONE (15:44)
--- NOTE | 2023-01-25 15:48 | Emergency Department Note ---
Impression & Plan Abdominal pain, UTI (urinary tract infection), Acute hip pain, Acute hyperglycemia, Vomiting ED Provider Note NAME: MARCO BARRERA AGE: 67 SEX: F : 1955 ARRIVES VIA: Ambulance INFORMANT: Patient ED PROVIDER(S): Hermilo Us DO CHIEF COMPLAINT: weakness HPI: Patient is a 67-year-old female who is a diabetic with frequent UTIs that presents to the ER for dysuria, urgency, and frequency which has been present for the past 10 to 12 days. She was prescribed antibiotics but was unable to get them. She has not been checking her sugars for the past 2 days. She admits to persistent vomiting today. She is very weak and cannot get up. Denies any headache or change in vision. No cough or congestion. No focal belly pain but notes her belly hurts throughout. Daughter is present at bedside and notes that she has chronic hip pain and that she has UTI and has not been taking any antibiotics. ADDITIONAL HISTORY OBTAINED: Per HPI Chronic Medical/Social Conditions Affecting Care: Per HPI PAST MEDICAL HISTORY:See Below PAST SURGICAL HISTORY:See Below FAMILY HISTORY:See Below SOCIAL HISTORY:See Below HOME MEDICATIONS:See Below ALLERGIES:See Below VITALS:See Below PHYSICAL EXAMINATION: GENERAL: Sitting up in bed, alert, disheveled, holding right hip EYE EXAM: normal conjunctiva. PERRL and EOM's grossly intact. OROPHARYNX: no exudate, no erythema, lips, buccal mucosa, and tongue normal and mucous membranes are moist NECK: supple, no nuchal rigidity, no adenopathy, non-tender LUNGS: Clear to auscultation. Normal chest wall mechanics HEART: no murmurs, S1 normal and S2 normal ABDOMEN: abdomen soft, non-tender, normo-active bowel sounds, no masses, no rebound or guarding. BACK: Back is symmetrical on inspection and there is no deformity, no midline tenderness, no CVA tenderness. SKIN: no rashes and no bruising UPPER EXTREMITIES: upper extremities are grossly normal. LOWER EXTREMITIES: Flexion extension of the right hip with minimal tenderness over the right hip. Flexion-extension right knee and ankle intact. Gross sensation intact. Skin is intact. No crepitus over the the right hip. No erythema or induration. Good cap refill with right DP 2 out of 4. Gross sensation intact. NEURO EXAM: Normal sensorium, cranial nerves II-XII grossly intact, normal speech, no gross weakness of arms, no gross weakness of legs. MEDICAL DECISION MAKING: Patient is a 67-year-old female who presents ER for weakness abdominal pain, vomiting and right hip pain. IV was established blood work was obtained. External records reviewed. Labs show mild leukocytosis of 13,000. No significant anemia. INR unremarkable. VBG with pH 7.37 and CO2 slight low at 33. BMP with potassium of 4.7. CO2 is slightly low at 20 and blood sugars were elevated in the mid 400s. Lactate was mildly elevated at 3. She was given IV Rocephin, IV morphine, and 2 L of IV fluids which meets for her ideal body weight for sepsis which would be 1.5 L. She was updated bedside. She was discussed with the hospitalist following negative CT of the abdomen pelvis admitted for further work-up of her sepsis likely secondary to UTI. External Records Reviewed: Previous cultures were reviewed from 01/22 for the urine which showed multiple dacia Consults/Care Managements Discussions: Per [facility] Triage Nursing notes reviewed. Limited review of prior medical records performed Vital Signs: reviewed and remarkable for no significant abnormalities Differential diagnosis: Differential diagnoses includes but is not limited to gastritis, peptic ulcer disease, GERD, gallbladder disease, pancreatitis, small bowel obstruction, appendicitis, diverticulitis, hernia, urinary tract infection, torsion, /ectopic (if female), perforation, trauma, infectious. ER treatment provided: See below Diagnostics interpreted by me include EKG and cardiac monitoring as listed below: -Cardiac Monitoring: An order was placed for continuous cardiac monitoring. The monitor shows a rate of 85 with sinus rhythm. -ECG: Sinus rhythm rate 81 Left axis No PVCs QTc 478 -Laboratory studies:Interpreted by me as stated above in MDM and shown below. Imaging studies: Xrays: As interpreted by me:none CTs show: CT abdomen pelvis per my read showed no obvious bowel obstruction CT abdomen pelvis per radiology showed no acute pathology Procedures:none Critical Care: None Past Med/Surg History Medical History Acute bronchitis Anemia Anxiety Benign essential HTN Cancer Cat scratch of left lower leg Cellulitis of right arm Cough Degenerative disc disease Diabetes mellitus, type 2 Diabetes mellitus, type 2 Disc degeneration, lumbar Dyslipidemia Fatty liver GERD (gastroesophageal reflux disease) History of recent steroid use HLD (hyperlipidemia) Hx of breast cancer Hypertension Hypokalemia Hypothyroidism Hypothyroidism Infiltrating lobular carcinoma Left flank pain Left leg injury Localized swelling, mass and lump, neck Malignant neoplasm of upper-outer quadrant of right breast in female, estrogen receptor positive Morbid obesity Morbid obesity with BMI of 50.0-59.9, adult Nasal congestion Neutropenia Peripheral neuropathy Peripheral neuropathy Pneumonia Sciatica Urinary symptom or sign Urinary tract infection UTI (urinary tract infection) Venous insufficiency Venous insufficiency (chronic) (peripheral) Vitamin D deficiency Surgical History History of adenoidectomy History of cardiac cath History of section History of cholecystectomy History of dilatation and curettage History of hip surgery History of laminectomy History of mastectomy History of tonsillectomy Family History Mother Family history of diabetes mellitus Heart disease Hypertension Kidney disease Father Heart disease Hodgkins disease HLD (hyperlipidemia) Hypertension Sister Hypertension Daughter Colonic polyp Daughter Appendiceal carcinoid tumor Abnormal breast exam, Onset Age: 29 Aunt Gallbladder cancer, carcinoma Family/Other Breast cancer Social History Smoking Status: Former smoker Tobacco Type: Cigarettes Age Started Using Tobacco: 21; packs per day: 1.5; Cigarettes Per Day: 30; Second Hand Exposure: Yes (occasionally); Do You Dip or Chew Tobacco: No; Hx Alcohol Use: Yes Alcohol type: hard liquor Alcohol Intake Frequency: Monthly or Less Alcohol Intake Frequency Comment: drinks socially Hx Substance Use: No Preferred Language: Cameroonian Communication Ability: Effective Visual Impairment: No Limitations Hearing Ability: Hard of Hearing Animal Assistant Required: No Beliefs That Will Affect Care: None marital status: / Current Living Situation: Alone current occupational status: retired 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 How many Children do You have: 2 Feels Safe at Home: Yes Childhood Exposure to Second-Hand Smoke: Yes Diet: regular caffeine: Yes (Diet soda ) Dental Care, Regularly: No Physical Activity Frequency: 1-2 Times per Week Seatbelt Use: always Sunscreen Use: Yes Assistive Devices: Walker Allergies Allergies Allergy/AdvReac Type Severity Reaction Status Date / Time adhesive Allergy Unknown "BLISTERS Verified 01/22/23 14:15 AND PULLS MY SKIN OFF" codeine AdvReac Mild Nausea Verified 01/22/23 14:15 erythromycin base AdvReac Unknown STOMACH Verified 01/22/23 14:15 PAIN indomethacin AdvReac Unknown "THINS Verified 01/22/23 14:15 BLOOD OUT TOO MUCH" valacyclovir [From Valtrex] AdvReac Unknown Palpitation Verified 01/22/23 14:15 s Home Meds Home Medications Medication Instructions Recorded Confirmed omega-3 acid ethyl esters 1 gram 2 g PO DAILY 08/30/18 01/25/23 capsule cyanocobalamin (vitamin B-12) 1,000 mcg PO DAILY 11/30/18 01/25/23 1,000 mcg tablet meclizine 25 mg tablet 25 mg PO TID PRN Dizziness 11/30/18 01/25/23 aspirin 81 mg tablet,delayed 81 mg PO DAILY 01/30/20 01/25/23 release calcium carbonate 600 mg-vitamin 1 cap PO DAILY 07/19/20 01/22/23 D3 12.5 mcg (500 unit) capsule (Calcium 600 with Vitamin D3) cholecalciferol (vitamin D3) 25 0 mcg PO DAILY 09/18/22 01/25/23 mcg (1,000 unit) tablet (Vitamin D3) diclofenac sodium 1 % topical gel 2 g topical QID PRN Pain 09/18/22 01/25/23 (Arthritis Pain (diclofenac)) fluticasone propionate 50 1 spray intranasal DAILY PRN 09/18/22 01/25/23 mcg/actuation nasal allergies spray,suspension insulin degludec 200 unit/mL (3 80 unit subcut HS 09/18/22 01/25/23 mL) subcutaneous pen (Tresiba FlexTouch U-200 insulin) Previous Rx's Medication Instructions Recorded furosemide 20 mg tablet (Lasix) 20 mg PO QAM PRN Fluid Retention 02/07/20 #90 tabs lorazepam 0.5 mg tablet 0.5 mg PO TID PRN anxiety #30 tabs 08/15/20 gabapentin 100 mg capsule 100 mg PO .COMPLEX #90 caps 01/11/21 metformin 1,000 mg tablet 1,000 mg PO BID #180 tabs 01/23/21 levothyroxine 200 mcg tablet 200 mcg PO QAM #90 tabs 11/15/21 levothyroxine 25 mcg tablet 25 mcg PO DAILY #90 tabs 02/05/21 blood-glucose meter (OneTouch #1 ea 05/14/21 Ultra2 Meter kit) blood sugar diagnostic #300 ea 07/18/21 blood sugar diagnostic (OneTouch #100 ea 08/30/21 Verio test strips) fluoxetine 40 mg capsule 40 mg PO QAM #90 caps 10/29/21 insulin aspart U-100 100 unit/mL See Rx Instructions subcut TID #15 12/04/21 (3 mL) subcutaneous pen (Novolog mL FlexPen U-100 Insulin aspart) ondansetron HCl 4 mg tablet 4 mg PO QID PRN nausea and 02/27/22 vomiting #30 tabs atorvastatin 40 mg tablet 40 mg PO QPM #90 tabs 06/05/22 ipratropium 0.5 mg-albuterol 3 mg 3 ml inhalation Q4H PRN wheezing 07/11/22 (2.5 mg base)/3 mL nebulization #180 mL soln gabapentin 300 mg capsule 300 mg PO TID #270 caps 07/12/22 semaglutide 0.25 mg or 0.5 mg (2 See Rx Instructions subcut 10/28/22 mg/3 mL) subcutaneous pen injector .COMPLEX #3 mL (Ozempic) amlodipine 10 mg tablet 10 mg PO DAILY #90 tabs 12/06/22 losartan 100 1 tab PO DAILY #90 tabs 12/06/22 mg-hydrochlorothiazide 25 mg tablet metoprolol succinate 50 mg 50 mg PO DAILY #90 tabs 12/06/22 tablet,extended release 24 hr cyclobenzaprine 5 mg tablet 5 mg PO TID PRN muscle spasm #30 01/01/23 tabs hydrocodone 5 mg-acetaminophen 300 See Rx Instructions PO Q8H PRN 01/01/23 mg tablet pain #30 tabs Results & Data (ED) Vital Signs Vital Signs - 24 hr 01/25/23 15:08 01/25/23 15:41 01/25/23 15:44 Temperature 37.1 C Temperature Source Oral Pulse Rate 82 81 Respiratory Rate 15 14 Respiratory Depth Blood Pressure 197/111 H 199/81 H Blood Pressure Mean 139 120 Pulse Oximetry 100 94 Oxygen Delivery Method Room Air Room Air Sepsis Recent Fever Within 48 Hours No Sepsis New/Unexplained Change in Mental Status No Sepsis Action Taken by Nursing No Action Required 01/25/23 15:44 01/25/23 15:45 01/25/23 16:00 Temperature Temperature Source Pulse Rate 84 94 H Respiratory Rate 13 16 Respiratory Depth Normal Blood Pressure 145/79 H Blood Pressure Mean 101 Pulse Oximetry 95 96 Oxygen Delivery Method Sepsis Recent Fever Within 48 Hours Sepsis New/Unexplained Change in Mental Status Sepsis Action Taken by Nursing 01/25/23 16:15 01/25/23 16:18 01/25/23 16:45 Temperature Temperature Source Pulse Rate 71 84 Respiratory Rate 14 15 Respiratory Depth Blood Pressure 174/85 H 201/91 H Blood Pressure Mean 114 127 Pulse Oximetry 94 96 Oxygen Delivery Method Sepsis Recent Fever Within 48 Hours Sepsis New/Unexplained Change in Mental Status Sepsis Action Taken by Nursing 01/25/23 17:00 01/25/23 17:15 01/25/23 19:45 Temperature Temperature Source Pulse Rate 84 87 89 Respiratory Rate 18 17 Respiratory Depth Blood Pressure 184/79 H 182/91 H Blood Pressure Mean 114 121 Pulse Oximetry 95 98 Oxygen Delivery Method Sepsis Recent Fever Within 48 Hours Sepsis New/Unexplained Change in Mental Status Sepsis Action Taken by Nursing Laboratory Data 01/25/23 15:35 01/25/23 19:28 Lab Results 01/25/23 01/25/23 01/25/23 Range/Units 15:25 15:35 15:50 WBC 13.46 H (4.8-10.8) K/ul RBC 4.52 (4.20-5.40) M/uL Hgb 15.0 (12.0-16.0) g/dl POC Hgb (12.0-16.0) g/dl Hct 40.8 (37.0-47.0) % POC Hct (37-47) % MCV 90.3 (80.0-100.0) fL MCH 33.2 (25.0-34.0) pg MCHC 36.8 H (32.0-36.0) g/dL RDW Std Deviation 41.5 (36.4-46.3) fL RDW Coeff of Rosa 12.5 (11.5-14.5) % Plt Count 235 (130-400) K/uL MPV 10.1 (9.4-12.4) fL Immature Gran % (Auto) 0.7 % Neut % (Auto) 80.4 % Lymph % (Auto) 12.2 % [place] % (Auto) 6.2 % Eos % (Auto) 0.1 % Baso % (Auto) 0.4 % Neut # (Auto) 10.82 H (1.40-6.50) K/uL Lymph # (Auto) 1.64 (1.20-3.40) K/uL [place] # (Auto) 0.84 H (0.11-0.59) K/uL Eos # (Auto) 0.02 (0.00-0.50) K/uL Baso # (Auto) 0.05 (0.00-0.20) K/uL Immature Gran # (Auto) 0.09 (0.01-0.20) K/uL PT 10.9 (9.0-12.0) Seconds INR 1.0 (0.9-1.1) VBG pH 7.45 H (7.36-7.41) VBG pCO2 33 L (38-50) mmHg VBG pO2 35 mmHg VBG HCO3 23 mmol/L VBG O2 Saturation 60.0 % VBG Base Excess -0.4 mEq/L POC Sodium (135-144) mmol/L Sodium 129 L (136-145) mmol/L POC Potassium (3.3-5.0) mmol/L Potassium 4.7 (3.5-5.1) mmol/L POC Chloride (101-112) mmol/L Chloride 93 L (98-107) mmol/L Carbon Dioxide 22 (21-32) mmol/L POC Total CO2 (24-31) mmol/L Anion Gap 14 H (3-11) POC Anion Gap (16-25) mmol/L POC BUN (7-18) mg/dl BUN 31 H (6-23) mg/dl Creatinine 1.15 (0.6-1.2) mg/dl POC Creatinine (0.6-1.3) mg/dl Est Cr Clr Drug Dosing 54.4 ml/min Est GFR ( Amer) 57.8 ml/min Est GFR (Non-Af Amer) 49.9 ml/min BUN/Creatinine Ratio 27.0 H (10-20) Glucose 417 H* (70-99(Fasting)) mg/dl POC Glucose 446 H* (70-99) mg/dl POC Glucose (other) (70-99) mg/dl Lactate 3.0 H* (0.4-2.0) mmol/L Calcium 9.4 (8.6-10.3) mg/dl POC Ioniz Calcium Kings (1.12-1.32) mmol/l Magnesium 1.9 (1.7-2.4) mg/dl Total Bilirubin 1.3 H (0.2-1.0) mg/dl Direct Bilirubin 0.2 (0-0.2) mg/dl AST 60 H (13-39) U/L ALT 79 H (7-52) U/L Alkaline Phosphatase 96 (34-104) U/L Total Protein 7.7 (6.0-8.3) gm/dl Albumin 4.2 (3.4-5.0) gm/dl Procalcitonin 0.07 (0-0.5) ng/ml Urine Color Urine Appearance (Clear) Urine pH (4.5-7.5) Ur Specific [place] (1.000-1.030) Urine Protein (Negative) Urine Glucose (UA) (Negative) Urine Ketones (Negative) Urine Blood (Negative) Urine Nitrite (Negative) Urine Bilirubin (Negative) Urine Urobilinogen (Negative) Ur Leukocyte Esterase (Negative) Urine WBC (Auto) (0-5) /hpf Urine RBC (Auto) (0-4) /hpf U Hyaline Cast (Auto) (0-5) /lpf U Epithel Cells (Auto) (0-5) /lpf Urine Bacteria (Auto) (Negative) Urine Yeast (None Prsent) 01/25/23 01/25/23 01/25/23 Range/Units 15:51 17:01 17:51 WBC (4.8-10.8) K/ul RBC (4.20-5.40) M/uL Hgb (12.0-16.0) g/dl POC Hgb 13.9 (12.0-16.0) g/dl Hct (37.0-47.0) % POC Hct 41 (37-47) % MCV (80.0-100.0) fL MCH (25.0-34.0) pg MCHC (32.0-36.0) g/dL RDW Std Deviation (36.4-46.3) fL RDW Coeff of Rosa (11.5-14.5) % Plt Count (130-400) K/uL MPV (9.4-12.4) fL Immature Gran % (Auto) % Neut % (Auto) % Lymph % (Auto) % [place] % (Auto) % Eos % (Auto) % Baso % (Auto) % Neut # (Auto) (1.40-6.50) K/uL Lymph # (Auto) (1.20-3.40) K/uL [place] # (Auto) (0.11-0.59) K/uL Eos # (Auto) (0.00-0.50) K/uL Baso # (Auto) (0.00-0.20) K/uL Immature Gran # (Auto) (0.01-0.20) K/uL PT (9.0-12.0) Seconds INR (0.9-1.1) VBG pH (7.36-7.41) VBG pCO2 (38-50) mmHg VBG pO2 mmHg VBG HCO3 mmol/L VBG O2 Saturation % VBG Base Excess mEq/L POC Sodium 129 L (135-144) mmol/L Sodium (136-145) mmol/L POC Potassium 4.3 (3.3-5.0) mmol/L Potassium (3.5-5.1) mmol/L POC Chloride 96 L (101-112) mmol/L Chloride (98-107) mmol/L Carbon Dioxide (21-32) mmol/L POC Total CO2 20 L (24-31) mmol/L Anion Gap (3-11) POC Anion Gap 18.0 (16-25) mmol/L POC BUN 29 H (7-18) mg/dl BUN (6-23) mg/dl Creatinine (0.6-1.2) mg/dl POC Creatinine 0.9 (0.6-1.3) mg/dl Est Cr Clr Drug Dosing ml/min Est GFR ( Amer) ml/min Est GFR (Non-Af Amer) ml/min BUN/Creatinine Ratio (10-20) Glucose (70-99(Fasting)) mg/dl POC Glucose 324 H* (70-99) mg/dl POC Glucose (other) 412 H* (70-99) mg/dl Lactate (0.4-2.0) mmol/L Calcium (8.6-10.3) mg/dl POC Ioniz Calcium Kings 1.01 L (1.12-1.32) mmol/l Magnesium (1.7-2.4) mg/dl Total Bilirubin (0.2-1.0) mg/dl Direct Bilirubin (0-0.2) mg/dl AST (13-39) U/L ALT (7-52) U/L Alkaline Phosphatase (34-104) U/L Total Protein (6.0-8.3) gm/dl Albumin (3.4-5.0) gm/dl Procalcitonin (0-0.5) ng/ml Urine Color Yellow Urine Appearance Clear (Clear) Urine pH 5.5 (4.5-7.5) Ur Specific [place] > 1.045 H (1.000-1.030) Urine Protein Negative (Negative) Urine Glucose (UA) 3+ H (Negative) Urine Ketones 2+ H (Negative) Urine Blood Negative (Negative) Urine Nitrite Positive A (Negative) Urine Bilirubin Negative (Negative) Urine Urobilinogen Negative (Negative) Ur Leukocyte Esterase Negative (Negative) Urine WBC (Auto) >30 H (0-5) /hpf Urine RBC (Auto) 0-4 (0-4) /hpf U Hyaline Cast (Auto) 1-5 (0-5) /lpf U Epithel Cells (Auto) 5-10 H (0-5) /lpf Urine Bacteria (Auto) 1+ H (Negative) Urine Yeast Present A (None Prsent) 01/25/23 01/25/23 01/25/23 Range/Units 18:59 19:09 19:28 WBC (4.8-10.8) K/ul RBC (4.20-5.40) M/uL Hgb (12.0-16.0) g/dl POC Hgb (12.0-16.0) g/dl Hct (37.0-47.0) % POC Hct (37-47) % MCV (80.0-100.0) fL MCH (25.0-34.0) pg MCHC (32.0-36.0) g/dL RDW Std Deviation (36.4-46.3) fL RDW Coeff of Rosa (11.5-14.5) % Plt Count (130-400) K/uL MPV (9.4-12.4) fL Immature Gran % (Auto) % Neut % (Auto) % Lymph % (Auto) % [place] % (Auto) % Eos % (Auto) % Baso % (Auto) % Neut # (Auto) (1.40-6.50) K/uL Lymph # (Auto) (1.20-3.40) K/uL [place] # (Auto) (0.11-0.59) K/uL Eos # (Auto) (0.00-0.50) K/uL Baso # (Auto) (0.00-0.20) K/uL Immature Gran # (Auto) (0.01-0.20) K/uL PT (9.0-12.0) Seconds INR (0.9-1.1) VBG pH 7.37 (7.36-7.41) VBG pCO2 33 L (38-50) mmHg VBG pO2 66 mmHg VBG HCO3 19 mmol/L VBG O2 Saturation 91.9 % VBG Base Excess -5.3 mEq/L POC Sodium (135-144) mmol/L Sodium 134 L (136-145) mmol/L POC Potassium (3.3-5.0) mmol/L Potassium 3.2 L D (3.5-5.1) mmol/L POC Chloride (101-112) mmol/L Chloride 102 (98-107) mmol/L Carbon Dioxide 20 L (21-32) mmol/L POC Total CO2 (24-31) mmol/L Anion Gap 12 H (3-11) POC Anion Gap (16-25) mmol/L POC BUN (7-18) mg/dl BUN 28 H (6-23) mg/dl Creatinine 0.96 (0.6-1.2) mg/dl POC Creatinine (0.6-1.3) mg/dl Est Cr Clr Drug Dosing 65.2 ml/min Est GFR ( Amer) 71.9 ml/min Est GFR (Non-Af Amer) 62.1 ml/min BUN/Creatinine Ratio 29.2 H (10-20) Glucose 178 H (70-99(Fasting)) mg/dl POC Glucose 184 H (70-99) mg/dl POC Glucose (other) (70-99) mg/dl Lactate 5.0 H* (0.4-2.0) mmol/L Calcium 8.3 L (8.6-10.3) mg/dl POC Ioniz Calcium Kings (1.12-1.32) mmol/l Magnesium 1.6 L (1.7-2.4) mg/dl Total Bilirubin (0.2-1.0) mg/dl Direct Bilirubin (0-0.2) mg/dl AST (13-39) U/L ALT (7-52) U/L Alkaline Phosphatase (34-104) U/L Total Protein (6.0-8.3) gm/dl Albumin (3.4-5.0) gm/dl Procalcitonin (0-0.5) ng/ml Urine Color Urine Appearance (Clear) Urine pH (4.5-7.5) Ur Specific [place] (1.000-1.030) Urine Protein (Negative) Urine Glucose (UA) (Negative) Urine Ketones (Negative) Urine Blood (Negative) Urine Nitrite (Negative) Urine Bilirubin (Negative) Urine Urobilinogen (Negative) Ur Leukocyte Esterase (Negative) Urine WBC (Auto) (0-5) /hpf Urine RBC (Auto) (0-4) /hpf U Hyaline Cast (Auto) (0-5) /lpf U Epithel Cells (Auto) (0-5) /lpf Urine Bacteria (Auto) (Negative) Urine Yeast (None Prsent) 01/25/23 Range/Units 20:23 WBC (4.8-10.8) K/ul RBC (4.20-5.40) M/uL Hgb (12.0-16.0) g/dl POC Hgb (12.0-16.0) g/dl Hct (37.0-47.0) % POC Hct (37-47) % MCV (80.0-100.0) fL MCH (25.0-34.0) pg MCHC (32.0-36.0) g/dL RDW Std Deviation (36.4-46.3) fL RDW Coeff of Rosa (11.5-14.5) % Plt Count (130-400) K/uL MPV (9.4-12.4) fL Immature Gran % (Auto) % Neut % (Auto) % Lymph % (Auto) % [place] % (Auto) % Eos % (Auto) % Baso % (Auto) % Neut # (Auto) (1.40-6.50) K/uL Lymph # (Auto) (1.20-3.40) K/uL [place] # (Auto) (0.11-0.59) K/uL Eos # (Auto) (0.00-0.50) K/uL Baso # (Auto) (0.00-0.20) K/uL Immature Gran # (Auto) (0.01-0.20) K/uL PT (9.0-12.0) Seconds INR (0.9-1.1) VBG pH (7.36-7.41) VBG pCO2 (38-50) mmHg VBG pO2 mmHg VBG HCO3 mmol/L VBG O2 Saturation % VBG Base Excess mEq/L POC Sodium (135-144) mmol/L Sodium (136-145) mmol/L POC Potassium (3.3-5.0) mmol/L Potassium (3.5-5.1) mmol/L POC Chloride (101-112) mmol/L Chloride (98-107) mmol/L Carbon Dioxide (21-32) mmol/L POC Total CO2 (24-31) mmol/L Anion Gap (3-11) POC Anion Gap (16-25) mmol/L POC BUN (7-18) mg/dl BUN (6-23) mg/dl Creatinine (0.6-1.2) mg/dl POC Creatinine (0.6-1.3) mg/dl Est Cr Clr Drug Dosing ml/min Est GFR ( Amer) ml/min Est GFR (Non-Af Amer) ml/min BUN/Creatinine Ratio (10-20) Glucose (70-99(Fasting)) mg/dl POC Glucose 189 H (70-99) mg/dl POC Glucose (other) (70-99) mg/dl Lactate (0.4-2.0) mmol/L Calcium (8.6-10.3) mg/dl POC Ioniz Calcium Kings (1.12-1.32) mmol/l Magnesium (1.7-2.4) mg/dl Total Bilirubin (0.2-1.0) mg/dl Direct Bilirubin (0-0.2) mg/dl AST (13-39) U/L ALT (7-52) U/L Alkaline Phosphatase (34-104) U/L Total Protein (6.0-8.3) gm/dl Albumin (3.4-5.0) gm/dl Procalcitonin (0-0.5) ng/ml Urine Color Urine Appearance (Clear) Urine pH (4.5-7.5) Ur Specific [place] (1.000-1.030) Urine Protein (Negative) Urine Glucose (UA) (Negative) Urine Ketones (Negative) Urine Blood (Negative) Urine Nitrite (Negative) Urine Bilirubin (Negative) Urine Urobilinogen (Negative) Ur Leukocyte Esterase (Negative) Urine WBC (Auto) (0-5) /hpf Urine RBC (Auto) (0-4) /hpf U Hyaline Cast (Auto) (0-5) /lpf U Epithel Cells (Auto) (0-5) /lpf Urine Bacteria (Auto) (Negative) Urine Yeast (None Prsent) Administered Medications Insulin Human Regular 250 (units/ Sodium Chloride) 250 mls @ 10 mls/hr IV .Q24H [facility]; Protocol Stop: 02/24/23 15:59 Last Admin: 01/25/23 16:40 Dose: 10 unit/hr, 10 mls/hr Documented By: CARLOTTA Co-signed By: EMMA Parenteral Electrolytes (Plasma-Lyte A Ph 7.4) 1,000 mls @ 999 mls/hr IV .Q1H1M HETAL Stop: 01/25/23 21:46 Last Admin: 01/25/23 19:54 Dose: 999 mls/hr Documented By: Infusion: 01/25/23 19:54 Dose: Infused Documented By: Admin: 01/25/23 19:54 Dose: 999 mls/hr Documented By: CARLOTTA Discontinued Medications Sodium Chloride (Nss) 1,000 mls @ 999 mls/hr IV .Q1H1M ONE Stop: 01/25/23 16:44 Last Admin: 01/25/23 16:14 Dose: 999 mls/hr Documented By: CARLOTTA Ceftriaxone Sodium (Rocephin) 2,000 mg in 50 mls @ 100 mls/hr IV NOW STA Stop: 01/25/23 16:13 Last Admin: 01/25/23 16:14 Dose: 100 mls/hr Documented By: CARLOTTA Sodium Chloride (Nss) 1,000 mls @ 999 mls/hr IV .Q1H1M HETAL Stop: 01/25/23 18:00 Last Admin: 01/25/23 18:44 Dose: 999 mls/hr Documented By: Infusion: 01/25/23 17:15 Dose: Infused Documented By: Admin: 01/25/23 16:14 Dose: 999 mls/hr Documented By: CARLOTTA Insulin Human Regular (Novolin-R Bolus From Bag) 10 units IV ONE ONE Stop: 01/25/23 16:31 Last Admin: 01/25/23 16:40 Dose: 10 units Documented By: CARLOTTA Co-signed By: EMMA Ioversol (Optiray 320 100ml) 94 ml IV ONCE ONE Stop: 01/25/23 16:35 Last Admin: 01/25/23 16:34 Dose: 94 ml Documented By: HERLINDA Metoclopramide HCl (Metoclopramide Hcl Inj 5 Mg/Ml 2 Ml Vial) 10 mg IV NOW STA Stop: 01/25/23 17:01 Last Admin: 01/25/23 18:44 Dose: 10 mg Documented By: CARLOTTA Miscellaneous (Patient's Height &/Or Weight Needed) 1 each N/A NOW STA Stop: 01/25/23 15:57 Last Admin: 01/25/23 16:23 Dose: 1 each Documented By: CARLOTTA Morphine Sulfate (Morphine Sulfate 4 Mg/Ml 1 Ml Carp\\Vial) 4 mg IV NOW STA Stop: 01/25/23 17:57 Last Admin: 01/25/23 18:58 Dose: Not Given Documented By: CARLOTTA Morphine Sulfate (Morphine Sulfate 10 Mg/Ml Carp/Vial) 6 mg IV NOW STA Stop: 01/25/23 18:28 Last Admin: 01/25/23 18:43 Dose: 6 mg Documented By: ACRLOTTA Ondansetron HCl (Ondansetron 2 Mg Od Tab) 2 mg PO NOW STA Stop: 01/25/23 19:48 Last Admin: 01/25/23 19:53 Dose: 2 mg Documented By: CARLOTTA Imaging Data Radiologist's Impression: Abdomen/Pelvis CT 01/25/23 15:44 CT abd pelvis IV con only CLINICAL HISTORY: diffuse abd pain TECHNIQUE: Helical axial images of the abdomen and pelvis were obtained and displayed. Automated dose lowering techniques and/or adjustment according to patient size were utilized for this exam. This exam was performed with intravenous contrast. CT DOSE: 1539.82 mGy.cm COMPARISON: Comparison is made to CT abdomen pelvis 11/29/2018 FINDINGS: Lower chest: No acute abnormality. Liver: Unremarkable. No focal lesions are seen. Gallbladder and biliary tree: Patient is status post cholecystectomy. No intra- or extrahepatic biliary ductal dilation. Pancreas: Unremarkable, no focal lesions. Spleen: Splenule is incidentally noted. Adrenals: Unremarkable. Kidneys and ureters: Subcentimeter hypodensities are too small to characterize. Bladder: Unremarkable. Reproductive organs: Unremarkable. Previously noted exophytic lesion between the uterus and left ovary is not seen. Bowel: Diverticulosis is seen without diverticulitis. The appendix is normal. Lymph nodes Retroperitoneal: Subcentimeter edith hepatis nodes are noted. Pelvic: Unremarkable. Mesenteric: Unremarkable. Peritoneum: Normal. Vessels: Unremarkable. Abdominal wall: Unremarkable. Bones: Degenerative changes in the visualized spine. Posterior fixation hardware spans L5-S1 and there is grade 1 anterolisthesis at this level. IMPRESSION: No acute abnormalities to explain diffuse abdominal pain. ACT 112: Negative or not required by law. Electronically signed by: Chencho Davila M.D. 01/25/2023 5:50 PM Chest X-Ray 01/25/23 15:44 XR chest 1V portable CLINICAL HISTORY: Sepsis TECHNIQUE: Single frontal radiograph of the chest was obtained. Comparison: Comparison is made to chest radiograph 09/10/2022 FINDINGS: No lines and tubes are seen. Cardiomegaly is noted. Prominence and cephalization of the vasculature is seen. No evidence of pleural effusion or pneumothorax. IMPRESSION: Cardiomegaly and mild pulmonary edema. No evidence of pneumonia. ACT 112: Negative or not required by law. Electronically signed by: Chencho Davila M.D. 01/25/2023 4:55 PM Discharge Plan Visit Data Chief Complaint: Hip Pain Stated Complaint: R HIP PAIN ED Provider: Hermilo Us Discharge Problem: Abdominal pain, UTI (urinary tract infection), Acute hip pain, Acute hyperglycemia, Vomiting Forms Stand Alone Forms: [employer] Prescriptions Prescriptions: No Action metformin 1,000 mg tablet 1,000 mg PO BID Qty: 180 3RF levothyroxine 200 mcg tablet 200 mcg PO QAM Qty: 90 3RF levothyroxine 25 mcg tablet 25 mcg PO DAILY Qty: 90 3RF Rx Instructions: TAKE WITH 200 MCG TABLET fluoxetine 40 mg capsule 40 mg PO QAM Qty: 90 3RF Novolog FlexPen U-100 Insulin 100 unit/mL (3 mL) insulin pen See Rx Instructions SQ TID Qty: 15 5RF Rx Instructions: sliding scale ondansetron HCl 4 mg tablet 4 mg PO QID PRN (Reason: nausea and vomiting) Qty: 30 5RF ipratropium-albuterol 0.5 mg-3 mg(2.5 mg base)/3 mL solution for nebulization 3 ml INH Q4H PRN (Reason: wheezing) Qty: 180 0RF cyclobenzaprine 5 mg tablet 5 mg PO TID PRN (Reason: muscle spasm) Qty: 30 4RF hydrocodone-acetaminophen 5-300 mg tablet See Rx Instructions PO Q8H PRN (Reason: pain) Qty: 30 0RF Rx Instructions: 0.5-1 tablet orally every 8 hours PRN omega-3 acid ethyl esters 1 gram capsule 2 g PO DAILY cyanocobalamin (vitamin B-12) 1,000 mcg tablet 1,000 mcg PO DAILY lorazepam 0.5 mg tablet 0.5 mg PO TID PRN (Reason: anxiety) Qty: 30 0RF Rx Instructions: Per PDMP, PDMP clear. (DME) blood sugar diagnostic Strip See Rx Instructions .ROUTE .MEDSUPPLY Qty: 300 3RF Rx Instructions: Test three times per day, dx e11.9 atorvastatin 40 mg tablet 40 mg PO QPM Qty: 90 3RF amlodipine 10 mg tablet 10 mg PO DAILY Qty: 90 3RF losartan-hydrochlorothiazide 100-25 mg tablet 1 tab PO DAILY Qty: 90 3RF metoprolol succinate 50 mg tablet extended release 24 hr 50 mg PO DAILY Qty: 90 3RF Rx Instructions: pt aware dose change calcium carbonate-vitamin D3 [Calcium 600 with Vitamin D3] 600 mg(1,500mg) - 500 unit capsule 1 cap PO DAILY (DME) blood-glucose meter [OneTouch Ultra2 Meter] Kit See Rx Instructions .Route Qty: 1 0RF Rx Instructions: As directed (DME) OneTouch Verio test strips Strip See Rx Instructions .Route Qty: 100 2RF Rx Instructions: Use to test blood sugar 3 times a day and as needed. furosemide [Lasix] 20 mg tablet 20 mg PO QAM PRN (Reason: Fluid Retention) Qty: 90 0RF gabapentin 100 mg capsule 100 mg PO .COMPLEX Qty: 90 3RF Rx Instructions: 100 mg PO add with 300 mg at bedtime; gabapentin 300 mg capsule 300 mg PO TID Qty: 270 1RF Ozempic 0.25 mg or 0.5 mg (2 mg/3 mL) pen injector See Rx Instructions subcut .COMPLEX Qty: 3 8RF Rx Instructions: 0.25mg SC WEEKLY for 4 weeks, then increase to 0.5mg SC WEEKLY. subcutaneously; meclizine 25 mg tablet 25 mg PO TID PRN (Reason: Dizziness) Patient Comments: only as needed aspirin 81 mg Tablet,Delayed Release (Dr/Ec) 81 mg PO DAILY fluticasone propionate 50 mcg/actuation spray,suspension 1 spray intranasal DAILY PRN (Reason: allergies) Rx Instructions: administer into each nostril twice daily diclofenac sodium [Arthritis Pain (diclofenac)] 1 % gel 2 g topical QID PRN (Reason: Pain) Rx Instructions: apply to R hip insulin degludec [Tresiba FlexTouch U-200] 200 unit/mL (3 mL) insulin pen 80 unit SQ HS cholecalciferol (vitamin D3) [Vitamin D3] 25 mcg (1,000 unit) Tablet 0 mcg PO DAILY Referrals Referrals: Ashley Truong MD [Primary Care Provider] - Discharge Problem: Abdominal pain Qualifiers: Abdominal location: unspecified location Qualified Code(s): R10.9 - Unspecified abdominal pain UTI (urinary tract infection) Qualifiers: Urinary tract infection type: acute cystitis Hematuria presence: with hematuria Qualified Code(s): N30.01 - Acute cystitis with hematuria Acute hip pain Qualifiers: Laterality: unspecified laterality Qualified Code(s): M25.559 - Pain in unspecified hip Vomiting Qualifiers: Vomiting type: unspecified Nausea presence: unspecified Qualified Code(s): R 11.10 - Vomiting, unspecified
[2023-01-25] MEDS ORDERED: GLUCOSE 10 TAB/TUBE PO PRN (15:53)
[2023-01-25] MEDS ORDERED: DEXTROSE 50% 50 ML SYRINGE IV PRN (15:53)
[2023-01-25] MEDS ORDERED: STAT IV Infusion **Titration per Protocol STA (15:53)
[2023-01-25] MEDS ORDERED: CARBOHYDRATES FOR HYPOGLYCEMIA PO PRN (15:53)
[2023-01-25] MEDS ORDERED: HHS GOAL RANGE 250-350 mg/dl ONE (15:53)
[2023-01-25] MEDS ORDERED: GLUCAGON FOR INJ 1 MG VIAL SQ PRN (15:53)
[2023-01-25] MEDS ORDERED: GLUCOSE 40% GEL 15 GM TUBE PO PRN (15:53)
[2023-01-25] MEDS ORDERED: Patient's HEIGHT &/or WEIGHT Needed STA (15:56)
[2023-01-25 16:00] LABS: Basophils # (auto) 0.05 K/uL (0.00-0.20); Basophils % (auto) 0.4 %; Eosinophils # (auto) 0.02 K/uL (0.00-0.50); Eosinophils % (auto) 0.1 %; Hematocrit (blood only) 40.8 % (37.0-47.0); Immature Granulocytes # (auto) 0.09 K/uL (0.01-0.20); Immature Granulocytes % (auto) 0.7 %; Lymphocytes # (auto) 1.64 K/uL (1.20-3.40); Lymphocytes % (auto) 12.2 %; Mean Corpuscular Hemoglobin 33.2 pg (25.0-34.0); Mean Corpuscular Hgb Conc 36.8 g/dL (32.0-36.0); Mean Corpuscular Volume 90.3 fL (80.0-100.0); Mean Platelet Volume 10.1 fL (9.4-12.4); Monocytes # (auto) 0.84 K/uL (0.11-0.59); Monocytes % (auto) 6.2 %; Neutrophils # (auto) 10.82 K/uL (1.40-6.50); Neutrophils % (auto) 80.4 %; Platelet Count 235 K/uL (130-400); RDW Coefficient of Variation 12.5 % (11.5-14.5); RDW Standard Deviation 41.5 fL (36.4-46.3); Red Blood Count 4.52 M/uL (4.20-5.40); White Blood Count 13.46 K/ul (4.8-10.8)
[2023-01-25] MEDS ORDERED: INSULIN REGULAR 250 UNITS in SODIUM CHLORIDE 0.9% 247.5 ML IV SCH ×2 (16:00→16:30)
[2023-01-25 16:05] LABS: Base Excess VBG -0.4 mEq/L; HCO3 VBG 23 mmol/L; PCO2 VBG 33 mmHg (38-50); PO2 VBG 35 mmHg; pH VBG 7.45 (7.36-7.41)
[2023-01-25 16:05] LABS: iSTAT Creatinine 0.9 mg/dl (0.6-1.3); iSTAT Hemoglobin 13.9 g/dl (12.0-16.0); iSTAT Ionized Calcium 1.01 mmol/l (1.12-1.32); iSTAT Potassium 4.3 mmol/L (3.3-5.0)
[2023-01-25] MEDS: SODIUM CHLORIDE 0.9% 1,000 ML IV SCH ×2 (16:14→18:44)
[2023-01-25 16:24] LABS: Albumin Level 4.2 gm/dl (3.4-5.0); Bilirubin Direct 0.2 mg/dl (0-0.2); Bilirubin,Total 1.3 mg/dl (0.2-1.0); Calcium 9.4 mg/dl (8.6-10.3); Creatinine Clr Calc Pharmacy 54.4 ml/min; Est GFR (African American) 57.8 ml/min; Est GFR (Non-African American) 49.9 ml/min; Magnesium 1.9 mg/dl (1.7-2.4); Potassium 4.7 mmol/L (3.5-5.1); Total Protein 7.7 gm/dl (6.0-8.3)
[2023-01-25 16:26] LABS: Prothrombin Time 10.9 Seconds (9.0-12.0)
[2023-01-25] MEDS ORDERED: NovoLIN-R BOLUS FROM BAG IV ONE (16:30)
[2023-01-25] MEDS ORDERED: OPTIRAY 320 100ml IV ONE (16:34)
[2023-01-25] MEDS ORDERED: NSS+KCL 20 MEQ 1000ML IV ONE (16:34)
--- NOTE | 2023-01-25 16:56 | XRay Report ---
XR chest 1V portable CLINICAL HISTORY: Sepsis TECHNIQUE: Single frontal radiograph of the chest was obtained. Comparison: Comparison is made to chest radiograph 09/10/2022 FINDINGS: No lines and tubes are seen. Cardiomegaly is noted. Prominence and cephalization of the vasculature i s seen. No evidence of pleural effusion or pneumothorax. IMPRESSION: Cardiomegaly and mild pulmonary edema. No evidence of pneumonia. ACT 112: Negative or not required by law. Electronically signed by: Chencho Davila M.D. 01/25/2023 4:55 PM
[2023-01-25] MEDS ORDERED: METOCLOPRAMIDE HCL INJ 5 MG/ML 2 ML VIAL IV STA (17:00)
[2023-01-25 17:14] LABS: Appearance Urine Clear (Clear); Bacteria Urine Automated 1+ (Negative); Bilirubin Urine Negative (Negative); Blood Urine Negative (Negative); Color Urine Yellow; Glucose Urine UA 3+ (Negative); Ketones Urine 2+ (Negative); Leukocyte Esterase Urine Negative (Negative); Nitrite Urine Positive (Negative); Protein Urine Negative (Negative); Specific Gravity Urine > 1.045 (1.000-1.030); Urobilinogen Urine Negative (Negative); WBC Urine Automated >30 /hpf (0-5); pH Urine 5.5 (4.5-7.5)
[2023-01-25 17:26] LABS: RBC Urine Automated 0-4 /hpf (0-4)
--- NOTE | 2023-01-25 17:53 | CT Scan Report ---
CT abd pelvis IV con only CLINICAL HISTORY: diffuse abd pain TECHNIQUE: Helical axial images of the abdomen and pelvis were obtained and displayed. Automated dose lowering techniques and/or adjustment according to patient size were utilized for this exam. This e xam was performed with intravenous contrast. CT DOSE: 1539.82 mGy.cm COMPARISON: Comparison is made to CT abdomen pelvis 11/29/2018 FINDINGS: Lower chest: No acute abnormality. Liver: Unremarkable. No focal lesions are seen. Gallbladder and biliary tree: Patient is status post cholecystectomy. No intra- or extrahepatic bilia ry ductal dilation. Pancreas: Unremarkable, no focal lesions. Spleen: Splenule is incidentally noted. Adrenals: Unremarkable. Kidneys and ureters: Subcentimeter hypodensities are too small to characterize. Bladder: Unremarkable. Reproductive organs: Unremarkable. Previously noted exophytic lesion between the uterus and left ovar y is not seen. Bowel: Diverticulosis is seen without diverticulitis. The appendix is normal. Lymph nodes Retroperitoneal: Subcentimeter edith hepatis nodes are noted. Pelvic: Unremarkable. Mesenteric: Unremarkable. Peritoneum: Normal. Vessels: Unremarkable. Abdominal wall: Unremarkable. Bones: Degenerative changes in the visualized spine. Posterior fixation hardware spans L5-S1 and ther e is grade 1 anterolisthesis at this level. IMPRESSION: No acute abnormalities to explain diffuse abdominal pain. ACT 112: Negative or not required by law. Electronically signed by: Chencho Davila M.D. 01/25/2023 5:50 PM
[2023-01-25] MEDS ORDERED: MoRPHine SULFATE 4 MG/ML 1 ML CARP\\VIAL IV STA (17:56)
[2023-01-25] MEDS ORDERED: MoRPHine SULFATE 10 MG/ML CARP/VIAL IV STA (18:27)
--- NOTE | 2023-01-25 18:56 | History & Physical Report ---
Date of Service January 25, 2023 Assessment & Plan (1) Sepsis: Plan: -Admit to the PCU on tele and pulse oximetry -Currently stable and completely oriented -Diagnosed with UTI by PCP on 12/22 but unable to pick abx from Pharmacy -Presented with leukocytosis, HR of 94, and likely source with UA concerning for UTI -Chest xray was and CT of the abd/pelvis w/IV were read as negative for other acute sources of infection -Patient is complaining of right hip/sacral pain, no focal signs on infection on exam, CT was able to obtain imaging of her right hip to rule out joint infection, will wait on read -Initial lactate elevated at 3.0, repeat at 5.0 but may have been hemolyzed with initial small peripheral IV site -S/P 2gm Ceftriaxone and 2L NSS in the ED (Sepsis bolus with ideal body weight is 1431 L) -Will continue with Ceftriaxone per previous urine cultures and add 48 hours of empiric Daptomycin until we confirm her source of infection -Will hold stain while on Daptomycin -Follow blood cultures, urine cultures, and MRSA swab obtained on admission -Will give another 2L Normosol on admission as she is significantly dry on exam -SQ lovenox for DVT PPX -Clear liquid diet until nausea has resolved -Monitor am CBC with q4h BMP, Mag, Lactate, and VBG (2) High anion gap metabolic acidosis: Plan: -On arrival to the ED AG elevated at 14, Bicarb at 22, lactate of 3.0, and initial VBG pH of 7.45 -Repeat labs after 2L NSS bolus in the ED show AG of 12, bicarb of 20, lactate of 5.0, and VBG pH of 7.37 -Her elevated lactate is due to sepsis and likely severe dehydration, her falling VBG pH and Bicarb are at least partly due to increased chloride due to 2L NSS in the ED as chloride went from 93 to 102 -Unsure at this time if her increasing lactate is real or due to hemolysis as she is clinically stable, will continue to monitor -Her falling VBG pH and Bicarb could be caused from the chloride she received in the 2L NSS given in the ED as her AG is improving -Switching IV fluids to 2L Normosol on admission, will continue insulin drip, broad spectrum abs -Will give 2 doses of 10 meq IV KCL and 2gm IV mag sulfate to ensure potassium and mag remained stable -Will continue to trend BMP, Mag, VBG, lactate q4h with next draw in 2 hours, if her labs are continuing to worsen will transfer to the ICU for higher level of care (3) Hyperglycemia: Plan: -Patient was stopped taking her insulin yesterday due to poor po intake with nausea -BSG on arrival was 412, AG elevated at 14, Bicarb at 22, lactate of 3.0, and initial VBG pH of 7.45 -Started on insulin drip with HHS protocol in the ED, will continue on drip at this time as her PO intake is very poor -Will eventually add D5W/1/2NSS w/KCL when the 2L Normosol are complete -can eventually transition to basal/bolus when she is able to eat consistently (4) UTI (urinary tract infection): Plan: -Confirmed on repeat UA in ED today -Initially diagnosed on 01/22 by PCP but unable to pick abx up -Has grown Klebsiella sensitive to ceftriaxone and mcmanus-sensitive e. coli in previous cultures -Continue ceftriaxone for now, follow urine and blood cultures (5) Elevated LFTs: Plan: -AST elevated at 60, ALT at 79 -No acute findings reported on CT of the abd/pelvis with IV con -Patient does have a hx of hemochromatosis, do not think that a ferritin level would be helpful at this time as it will certainly be elevated with her severe sepsis -Patient denies recent acetaminophen use or alcohol use -Could be due to her sepsis -Continue to trend daily CMP for now -Avoid nephrotoxic agents (6) Hip pain, right: Plan: -Patient states that this is a chronic pain and is exacerbated when she get's infections -Denies recent trauma -No signs of obvious infection on inspection and palpation -With her severe sepsis obtain CT of the hip from CT of the abd/pelvis w/IV earlier -Will FU with final read in order to RUL possible source of infection from the site of pain -Will start with PRN Tylenol (max of 2gm in 24 H with elevated LFT's) (7) Hypertension: Plan: -Has been stable -Hold all antihypertensives at this time to avoid hypotensive with acute illness Plan The patient was discussed with Dr. Barnes at the time of the admission History of Present Illness Chief Complaint: Hip pain, UTI on outpatient labs Primary Care Provider: Ashley Truong MD Kassi is a 67 year old female with a PMH significant for Breast cancer S/P chemotherapy/radiation therapy, S/P BL mastectomy, hemo poorly controlled DMII, hypothyroidism, hemochromatosis (follows with heme/onc), piriformis syndrome of the RLE who presented tot he [facility] ED on 01/25 for right hip pain, recently diagnosed UTI by PCP, and generalized weakness. She was noted to be hypertensive at 201/91 but otherwise table. Labs were significant for a leukocytosis of 13, neutrophil predominance of 10.82, glucose of 417, AG of 14 with bicarb of 22, potassium of 4.3, corrected sodium of 134, initial lactate of 3.0, total bili of 1.3 with AST of 60, ALT of 79, procal WNL, and UA with 3+ glucose, 2+ ketones, nitrite positive, > 30 WBC, 1+ bacteria. Chest xray was read as "Cardiomegaly and mild pulmonary edema. No evidence of pneumonia.". CT of the abd/pelvis with IV con was read as "No acute abnormalities to explain diffuse abdominal pain.". Prior to admission the patient was given a dose of Ceftriaxone, 2L NSS, 10 mg IV reglan, and was started on an insulin drip with [facility] protocol. At the time of the exam the patient was lying in bed and appears ill but in no acute distress. She states that she was experiencing dysuria, urinary frequency, and right hip/buttocks pain at the beginning of the week so she made an appointment with her PCP. Her UA was consistent for UTI and her PCP prescribed her a course of Cephalexin but she was in too much pain to pick it u p. She started to develop nausea with poor oral intake last night which is why she stopped taking her insulin. This am she had suprapubic pain and multiple episodes of bilious, non-bloody emesis. When asked, she denies choking/aspirating with her recent emesis. She states that her chronic right hip pain is always exacerbated when she gets UTI's. She denies recent fever, chest pain, SOB, cough, hemoptysis, hematuria, diarrhea, LE pain/swelling, and recent trauma. She is still experiencing nausea, which she attributes to her severe left hip pain. She confirms that she did not have her am medications today. She is a full code and wishes for her daughter to make medical decisions for her if she cannot make decisions herself. I was able to call and speak with the patient's daughter, Sophie Hobson ([phone]). She states that her mother has been clinically declining for many months and has been resistant to look into assisted living. I explained that we can consult PT/OT and CM to get a better idea of how much extra assistance on DC and what their options are. Please refer to Dr. Barnes's attestation for any changes to the treatment plan Allergies Allergy/AdvReac Type Severity Reaction Status Date / Time adhesive Allergy Unknown "BLISTERS Verified 01/22/23 14:15 AND PULLS MY SKIN OFF" codeine AdvReac Mild Nausea Verified 01/22/23 14:15 erythromycin base AdvReac Unknown STOMACH Verified 01/22/23 14:15 PAIN indomethacin AdvReac Unknown "THINS Verified 01/22/23 14:15 BLOOD OUT TOO MUCH" valacyclovir [From Valtrex] AdvReac Unknown Palpitation Verified 01/22/23 14:15 s Home Medications Medication Instructions Recorded Confirmed Type omega-3 acid ethyl esters 1 gram 2 g PO DAILY 08/30/18 01/25/23 History capsule cyanocobalamin (vitamin B-12) 1,000 mcg PO DAILY 11/30/18 01/25/23 History 1,000 mcg tablet meclizine 25 mg tablet 25 mg PO TID PRN Dizziness 11/30/18 01/25/23 History aspirin 81 mg tablet,delayed 81 mg PO DAILY 01/30/20 01/25/23 History release furosemide 20 mg tablet (Lasix) 20 mg PO QAM PRN Fluid Retention 02/07/20 01/25/23 Rx #90 tabs calcium carbonate 600 mg-vitamin 1 cap PO DAILY 07/19/20 01/22/23 History D3 12.5 mcg (500 unit) capsule (Calcium 600 with Vitamin D3) lorazepam 0.5 mg tablet 0.5 mg PO TID PRN anxiety #30 tabs 08/15/20 01/25/23 Rx gabapentin 100 mg capsule 100 mg PO .COMPLEX #90 caps 01/11/21 01/25/23 Rx metformin 1,000 mg tablet 1,000 mg PO BID #180 tabs 01/23/21 01/25/23 Rx levothyroxine 200 mcg tablet 200 mcg PO QAM #90 tabs 02/05/21 01/25/23 Rx levothyroxine 25 mcg tablet 25 mcg PO DAILY #90 tabs 02/05/21 01/25/23 Rx blood-glucose meter (OneTouch #1 ea 05/14/21 01/22/23 Rx Ultra2 Meter kit) blood sugar diagnostic #300 ea 07/18/21 01/22/23 Rx blood sugar diagnostic (OneTouch #100 ea 08/30/21 01/22/23 Rx Verio test strips) fluoxetine 40 mg capsule 40 mg PO QAM #90 caps 10/29/21 01/25/23 Rx insulin aspart U-100 100 unit/mL See Rx Instructions subcut TID #15 12/04/21 01/25/23 Rx (3 mL) subcutaneous pen (Novolog mL FlexPen U-100 Insulin aspart) ondansetron HCl 4 mg tablet 4 mg PO QID PRN nausea and 02/27/22 01/25/23 Rx vomiting #30 tabs atorvastatin 40 mg tablet 40 mg PO QPM #90 tabs 06/05/22 01/25/23 Rx ipratropium 0.5 mg-albuterol 3 mg 3 ml inhalation Q4H PRN wheezing 07/11/22 01/25/23 Rx (2.5 mg base)/3 mL nebulization #180 mL soln gabapentin 300 mg capsule 300 mg PO TID #270 caps 07/12/22 01/25/23 Rx cholecalciferol (vitamin D3) 25 0 mcg PO DAILY 09/18/22 01/25/23 History mcg (1,000 unit) tablet (Vitamin D3) diclofenac sodium 1 % topical gel 2 g topical QID PRN Pain 09/18/22 01/25/23 History (Arthritis Pain (diclofenac)) fluticasone propionate 50 1 spray intranasal DAILY PRN 09/18/22 01/25/23 History mcg/actuation nasal allergies spray,suspension insulin degludec 200 unit/mL (3 80 unit subcut HS 09/18/22 01/25/23 History mL) subcutaneous pen (Tresiba FlexTouch U-200 insulin) semaglutide 0.25 mg or 0.5 mg (2 See Rx Instructions subcut 10/28/22 01/25/23 Rx mg/3 mL) subcutaneous pen injector .COMPLEX #3 mL (Ozempic) amlodipine 10 mg tablet 10 mg PO DAILY #90 tabs 12/06/22 01/25/23 Rx losartan 100 1 tab PO DAILY #90 tabs 12/06/22 01/25/23 Rx mg-hydrochlorothiazide 25 mg tablet metoprolol succinate 50 mg 50 mg PO DAILY #90 tabs 12/06/22 01/25/23 Rx tablet,extended release 24 hr cyclobenzaprine 5 mg tablet 5 mg PO TID PRN muscle spasm #30 01/01/23 01/25/23 Rx tabs hydrocodone 5 mg-acetaminophen 300 See Rx Instructions PO Q8H PRN 01/01/23 01/25/23 Rx mg tablet pain #30 tabs Past Med/Surg History Medical History (Updated 01/25/23 @ 21:24 by Bill Kelley PA-C) Cat scratch of left lower leg Urinary symptom or sign Nasal congestion Left leg injury Cellulitis of right arm Urinary tract infection Cough Left flank pain Acute bronchitis Localized swelling, mass and lump, neck Disc degeneration, lumbar Dyslipidemia Infiltrating lobular carcinoma UTI (urinary tract infection) Hypokalemia Malignant neoplasm of upper-outer quadrant of right breast in female, estrogen receptor positive Pneumonia hospitalization in June 2018 Morbid obesity Anemia Peripheral neuropathy Venous insufficiency (chronic) (peripheral) History of recent steroid use Diabetes mellitus, type 2 Neutropenia Cancer BREAST CANCER-RIGHT SIDE Hx of breast cancer HX OF BILATERAL MASTECTOMY NOV 2017. DO NOT USE RIGHT ARM Hypothyroidism Vitamin D deficiency Morbid obesity with BMI of 50.0-59.9, adult HLD (hyperlipidemia) Benign essential HTN Sciatica Peripheral neuropathy secondary to back surgery Venous insufficiency Fatty liver Degenerative disc disease GERD (gastroesophageal reflux disease) Diabetes mellitus, type 2 INSULIN/ORAL MEDS- Hypothyroidism Anxiety PANIC ATTACKS Hypertension Surgical History History of mastectomy BILATERAL, 12/15/17 @ [facility]. DO NOT USE RIGHT ARM History of hip surgery AN INFANT-LEFT SIDE History of tonsillectomy History of adenoidectomy History of laminectomy X 2 INCL FUSION-LUMBAR History of section X 2 History of dilatation and curettage History of cholecystectomy History of cardiac cath GREATER THAN 6 YRS AGO-NO STENTS-[facility] Family History Mother Family history of diabetes mellitus Heart disease Hypertension Kidney disease Father Heart disease Hodgkins disease HLD (hyperlipidemia) Hypertension Sister Hypertension Daughter Colonic polyp Daughter Appendiceal carcinoid tumor Abnormal breast exam, Onset Age: 29 Aunt Gallbladder cancer, carcinoma Family/Other Breast cancer Social History Smoking Status: Former smoker Tobacco Type: Cigarettes Age Started Using Tobacco: 21; packs per day: 1.5; Cigarettes Per Day: 30; Second Hand Exposure: Yes (occasionally); Do You Dip or Chew Tobacco: No; Hx Alcohol Use: Yes Alcohol type: hard liquor Alcohol Intake Frequency: Monthly or Less Alcohol Intake Frequency Comment: drinks socially Hx Substance Use: No Preferred Language: Dutch Communication Ability: Effective Visual Impairment: No Limitations Hearing Ability: Hard of Hearing Robotics Technologist Required: No Beliefs That Will Affect Care: None marital status: / Current Living Situation: Alone current occupational status: retired current occupation: Retired / works Adminisrative associate for [email or web address] How many Children do You have: 2 Feels Safe at Home: Yes Childhood Exposure to Second-Hand Smoke: Yes Diet: regular caffeine: Yes (Diet soda ) Dental Care, Regularly: No Physical Activity Frequency: 1-2 Times per Week Seatbelt Use: always Sunscreen Use: Yes Assistive Devices: Walker Physical Exam Physical Exam: Physical Exam: General: In no acute distress, stated age, ill appearing HEENT: Normocephalic, atraumatic, no scleral icterus, pupils around round, symmetrical, and reactive to light, dry mucus membranes, dried vomit on the left cheek, trachea midline, no thyromegaly Chest/Pulm: No respiratory distress, symmetrical chest expansion, clear breath sounds throughout Cardiac: RRR, no murmurs noted Abdomen: Negative for ascites and bruising, normoactive bowel sounds, soft, non-tender to palpation throughout Musculoskeletal: Symmetrical and without signs of acute trauma, patient with tenderness to palpation over the right buttocks/sacrum without crepitus or fluctuance, no sign of obvious joint infection of the right hip or lumbar spine but exam is difficult due to body habitus Extremities: Radial, dorsalis pedis, and posterior tibial pulses are intact and symmetrical, symmetrical swelling in the BL LE's without erythema Skin: Warm, dry, no rashes , lesions, or scars noted Neuro: Alert and oriented to person, place, month, year, and president, no focal defects, no tremors noted Psych: No acute distress, calm and cooperative during the exam Results & Data Results & Data Vital Signs (Past 12 Hours) Vital Signs Temp Pulse Resp BP Pulse Ox O2 Del Method 01/25/23 17:15 87 17 182/91 H 98 01/25/23 17:00 84 18 184/79 H 95 01/25/23 16:45 15 201/91 H 96 01/25/23 16:18 84 01/25/23 16:15 71 14 174/85 H 94 01/25/23 16:00 94 H 16 145/79 H 96 01/25/23 15:45 84 13 95 01/25/23 15:44 Room Air 01/25/23 15:41 81 14 199/81 H 94 01/25/23 15:08 37.1 C 82 15 197/111 H 100 Room Air Laboratory Results Abnormal lab results 01/25/23 01/25/23 01/25/23 Range/Units 15:25 15:35 15:50 WBC 13.46 H (4.8-10.8) K/ul MCHC 36.8 H (32.0-36.0) g/dL Neut # (Auto) 10.82 H (1.40-6.50) K/uL Allen # (Auto) 0.84 H (0.11-0.59) K/uL VBG pH 7.45 H (7.36-7.41) VBG pCO2 33 L (38-50) mmHg POC Sodium (135-144) mmol/L Sodium 129 L (136-145) mmol/L Potassium (3.5-5.1) mmol/L POC Chloride (101-112) mmol/L Chloride 93 L (98-107) mmol/L Carbon Dioxide (21-32) mmol/L POC Total CO2 (24-31) mmol/L Anion Gap 14 H (3-11) POC BUN (7-18) mg/dl BUN 31 H (6-23) mg/dl BUN/Creatinine Ratio 27.0 H (10-20) Glucose 417 H* (70-99(Fasting)) mg/dl POC Glucose 446 H* (70-99) mg/dl POC Glucose (other) (70-99) mg/dl Lactate 3.0 H* (0.4-2.0) mmol/L Calcium (8.6-10.3) mg/dl POC Ioniz Calcium Kings (1.12-1.32) mmol/l Magnesium (1.7-2.4) mg/dl Total Bilirubin 1.3 H (0.2-1.0) mg/dl AST 60 H (13-39) U/L ALT 79 H (7-52) U/L Ur Specific Hern[place] (1.000-1.030) Urine Glucose (UA) (Negative) Urine Ketones (Negative) Urine Nitrite (Negative) Urine WBC (Auto) (0-5) /hpf U Epithel Cells (Auto) (0-5) /lpf Urine Bacteria (Auto) (Negative) Urine Yeast (None Prsent) 01/25/23 01/25/23 01/25/23 Range/Units 15:51 17:01 17:51 WBC (4.8-10.8) K/ul MCHC (32.0-36.0) g/dL Neut # (Auto) (1.40-6.50) K/uL Allen # (Auto) (0.11-0.59) K/uL VBG pH (7.36-7.41) VBG pCO2 (38-50) mmHg POC Sodium 129 L (135-144) mmol/L Sodium (136-145) mmol/L Potassium (3.5-5.1) mmol/L POC Chloride 96 L (101-112) mmol/L Chloride (98-107) mmol/L Carbon Dioxide (21-32) mmol/L POC Total CO2 20 L (24-31) mmol/L Anion Gap (3-11) POC BUN 29 H (7-18) mg/dl BUN (6-23) mg/dl BUN/Creatinine Ratio (10-20) Glucose (70-99(Fasting)) mg/dl POC Glucose 324 H* (70-99) mg/dl POC Glucose (other) 412 H* (70-99) mg/dl Lactate (0.4-2.0) mmol/L Calcium (8.6-10.3) mg/dl POC Ioniz Calcium Kings 1.01 L (1.12-1.32) mmol/l Magnesium (1.7-2.4) mg/dl Total Bilirubin (0.2-1.0) mg/dl AST (13-39) U/L ALT (7-52) U/L Ur Specific [place] > 1.045 H (1.000-1.030) Urine Glucose (UA) 3+ H (Negative) Urine Ketones 2+ H (Negative) Urine Nitrite Positive A (Negative) Urine WBC (Auto) >30 H (0-5) /hpf U Epithel Cells (Auto) 5-10 H (0-5) /lpf Urine Bacteria (Auto) 1+ H (Negative) Urine Yeast Present A (None Prsent) 01/25/23 01/25/23 01/25/23 Range/Units 18:59 19:09 19:28 WBC (4.8-10.8) K/ul MCHC (32.0-36.0) g/dL Neut # (Auto) (1.40-6.50) K/uL Allen # (Auto) (0.11-0.59) K/uL VBG pH (7.36-7.41) VBG pCO2 33 L (38-50) mmHg POC Sodium (135-144) mmol/L Sodium 134 L (136-145) mmol/L Potassium 3.2 L D (3.5-5.1) mmol/L POC Chloride (101-112) mmol/L Chloride (98-107) mmol/L Carbon Dioxide 20 L (21-32) mmol/L POC Total CO2 (24-31) mmol/L Anion Gap 12 H (3-11) POC BUN (7-18) mg/dl BUN 28 H (6-23) mg/dl BUN/Creatinine Ratio 29.2 H (10-20) Glucose 178 H (70-99(Fasting)) mg/dl POC Glucose 184 H (70-99) mg/dl POC Glucose (other) (70-99) mg/dl Lactate 5.0 H* (0.4-2.0) mmol/L Calcium 8.3 L (8.6-10.3) mg/dl POC Ioniz Calcium Ikngs (1.12-1.32) mmol/l Magnesium 1.6 L (1.7-2.4) mg/dl Total Bilirubin (0.2-1.0) mg/dl AST (13-39) U/L ALT (7-52) U/L Ur Specific [place] (1.000-1.030) Urine Glucose (UA) (Negative) Urine Ketones (Negative) Urine Nitrite (Negative) Urine WBC (Auto) (0-5) /hpf U Epithel Cells (Auto) (0-5) /lpf Urine Bacteria (Auto) (Negative) Urine Yeast (None Prsent) 01/25/23 Range/Units 20:23 WBC (4.8-10.8) K/ul MCHC (32.0-36.0) g/dL Neut # (Auto) (1.40-6.50) K/uL Allen # (Auto) (0.11-0.59) K/uL VBG pH (7.36-7.41) VBG pCO2 (38-50) mmHg POC Sodium (135-144) mmol/L Sodium (136-145) mmol/L Potassium (3.5-5.1) mmol/L POC Chloride (101-112) mmol/L Chloride (98-107) mmol/L Carbon Dioxide (21-32) mmol/L POC Total CO2 (24-31) mmol/L Anion Gap (3-11) POC BUN (7-18) mg/dl BUN (6-23) mg/dl BUN/Creatinine Ratio (10-20) Glucose (70-99(Fasting)) mg/dl POC Glucose 189 H (70-99) mg/dl POC Glucose (other) (70-99) mg/dl Lactate (0.4-2.0) mmol/L Calcium (8.6-10.3) mg/dl POC Ioniz Calcium Kings (1.12-1.32) mmol/l Magnesium (1.7-2.4) mg/dl Total Bilirubin (0.2-1.0) mg/dl AST (13-39) U/L ALT (7-52) U/L Ur Specific [place] (1.000-1.030) Urine Glucose (UA) (Negative) Urine Ketones (Negative) Urine Nitrite (Negative) Urine WBC (Auto) (0-5) /hpf U Epithel Cells (Auto) (0-5) /lpf Urine Bacteria (Auto) (Negative) Urine Yeast (None Prsent) Diagnostic Findings Abdomen/Pelvis CT 01/25/23 15:44 CT abd pelvis IV con only CLINICAL HISTORY: diffuse abd pain TECHNIQUE: Helical axial images of the abdomen and pelvis were obtained and displayed. Automated dose lowering techniques and/or adjustment according to patient size were utilized for this exam. This exam was performed with intravenous contrast. CT DOSE: 1539.82 mGy.cm COMPARISON: Comparison is made to CT abdomen pelvis 11/29/2018 FINDINGS: Lower chest: No acute abnormality. Liver: Unremarkable. No focal lesions are seen. Gallbladder and biliary tree: Patient is status post cholecystectomy. No intra- or extrahepatic biliary ductal dilation. Pancreas: Unremarkable, no focal lesions. Spleen: Splenule is incidentally noted. Adrenals: Unremarkable. Kidneys and ureters: Subcentimeter hypodensities are too small to characterize. Bladder: Unremarkable. Reproductive organs: Unremarkable. Previously noted exophytic lesion between the uterus and left ovary is not seen. Bowel: Diverticulosis is seen without diverticulitis. The appendix is normal. Lymph nodes Retroperitoneal: Subcentimeter edith hepatis nodes are noted. Pelvic: Unremarkable. Mesenteric: Unremarkable. Peritoneum: Normal. Vessels: Unremarkable. Abdominal wall: Unremarkable. Bones: Degenerative changes in the visualized spine. Posterior fixation hardware spans L5-S1 and there is grade 1 anterolisthesis at this level. IMPRESSION: No acute abnormalities to explain diffuse abdominal pain. ACT 112: Negative or not required by law. Electronically signed by: Chencho Davila M.D. 01/25/2023 5:50 PM Chest X-Ray 01/25/23 15:44 XR chest 1V portable CLINICAL HISTORY: Sepsis TECHNIQUE: Single frontal radiograph of the chest was obtained. Comparison: Comparison is made to chest radiograph 09/10/2022 FINDINGS: No lines and tubes are seen. Cardiomegaly is noted. Prominence and cephalization of the vasculature is seen. No evidence of pleural effusion or pneumothorax. IMPRESSION: Cardiomegaly and mild pulmonary edema. No evidence of pneumonia. ACT 112: Negative or not required by law. Electronically signed by: Chencho Davila M.D. 01/25/2023 4:55 PM ECG Additional Comments: Normal sinus rhythm Inferior infarct (cited on or before 25-JAN-2023) Anterior infarct , age undetermined Abnormal ECG When compared with ECG of 18-SEP-2022 19:22, No significant change was found Code Status & VTE Plan Code Status Full code VTE Prophylaxis Plan VTE Prophylaxis will be ordered: Yes Supervising Physician Co-Signing Physician Notes Patient seen and examined, chart reviewed, case discussed with SERENA Kelley and I agree with the assessment and plan as documented above. In brief, patient is a 67yo female with recently diagnosed UTI - untreated. Patient with ongoing back pain and right hip pain. She has not been taking her medications or insulin. On exam patient is afebrile, HD stable Ill in appearance, awake/alert and oriented Skin - intact, some intertriginous yeast/redness noted in the skin folds HEENT -very dry MM, neck supple Heart - +S1/S2, regular Lungs - CTA Abd- +BS, soft, NT/ND. Pain with palpation or right sacro-iliac joint Ext- warm, well perfused Labs with leukocytosis - WBC=13.46 with neutrophil predominance Gapped metabolic acidosis Elevated lactate 3 --> 5 after fluids Glucose 412 --> 189 after IVF and insulin Mg=1.6, ICal=1.01, K=3.2 Tbili-1.3 AST=60 ALT=[address] of the abdomen with no acute abnormalities. Liver or bile duct abnormality - s/p marie CT of the hip with no evidence of infection Assessment/Plan Sepsis - likely secondary to urinary source. Patient appears clinically dry as well. She has received sufficient volume resuscitation - 2+ L IV Crystalloid - 30mL/kg=1.4L. IV antibiotics administered - Ceftriaxone, Daptomycin ordered as well for empiric coverage Repeat chemistry and lactate. Hyperglycemia - on insulin drip. Improvement in glucose after IVF and insulin. Repeat labs - transition to basal/bolus insulin if anion gap improved and BSG continues to be under control -Remainder as above PG Care Time/CCT Total # of Minutes Spent Total Time Spent with Patient: Total time spent is greater than 50% in coordination of care (as documented) at patient's floor/unit and/or counseling patient: Coding [place] [address] INT INP/OBS CARE 3/75MIN Patient Type Established Medical Decision Making High Complexity Diagnoses Sepsis, due to unspecified organism A41.9 Sepsis type: sepsis due to unspecified organism High anion gap metabolic acidosis E87.29 Hyperglycemia R73.9 UTI (urinary tract infection) N30.01 Hematuria presence: with hematuria Urinary tract infection type: acute cystitis Elevated LFTs R79.89 Hip pain, right M25.551 Hypertension I10 (1) Sepsis Sepsis type: sepsis due to unspecified organism Qualified Code(s): A41.9 - Se psis, unspecified organism (4) UTI (urinary tract infection) Hematuria presence: with hematuria Urinary tract infection type: acute cystitis Qualified Code(s): N30.01 - Acute cystitis with hematuria
[2023-01-25 19:34] LABS: Base Excess VBG -5.3 mEq/L; HCO3 VBG 19 mmol/L; Oxygen Saturation VBG 91.9 %; PCO2 VBG 33 mmHg (38-50); PO2 VBG 66 mmHg; pH VBG 7.37 (7.36-7.41)
[2023-01-25] MEDS ORDERED: ONDANSETRON 2 MG OD TAB PO STA (19:47)
[2023-01-25] MEDS: PLASMA-LYTE A 1,000 ML IV SCH (19:54)
[2023-01-25 20:03] LABS: BUN Creatinine Ratio 29.2 (10-20); Calcium 8.3 mg/dl (8.6-10.3); Creatinine Clr Calc Pharmacy 65.2 ml/min; Est GFR (African American) 71.9 ml/min; Est GFR (Non-African American) 62.1 ml/min; Magnesium 1.6 mg/dl (1.7-2.4); Potassium 3.2 mmol/L (3.5-5.1)
[2023-01-25] MEDS ORDERED: DAPTOmycin 425 MG in SYRINGE 0 ML IV STA (20:37)
[2023-01-25] MEDS: INSULIN ASPART PER UNIT CHARGE SC SCH (20:38)
[2023-01-25] MEDS: POTASSIUM CHLORIDE / WTR 10 MEQ/100 ML PLCT IV SCH ×2 (21:08→22:19)
[2023-01-25] MEDS: MAGNESIUM SULFATE / D5W 1 GM/100 ML BAG IV SCH ×2 (21:08→22:19)
[2023-01-25] MEDS ORDERED: ACETAMINOPHEN 325 MG TAB PO STA (21:21)
[2023-01-25] MEDS ORDERED: ACETAMINOPHEN 325 MG TAB PO PRN (21:50)
[2023-01-25] MEDS ORDERED: ALBUT/IPRATROP 3MG/0.5MG NEB 3 ML VIAL INH PRN (21:50)
--- NOTE | 2023-01-25 21:59 | CT Scan Report ---
CT hip RT w con CLINICAL HISTORY: sepsis, right hip pain, monitor for infected joint TECHNIQUE: Multidetector row helical CT of the right hip was performed without intravenous contrast. Coronal and sagittal reformations were obtained. Automated dose lowering techniques and/or adjustment according to patient size were utilized for this examination. Comparison: Comparison is made to CT abdomen pelvis 01/25/2023 FINDINGS: The osseous structures are without fracture or dislocation. Minimal degenerative changes are seen at the femoroacetabular joint. No joint effusion is seen. The soft tissues are unremarkable. IMPRESSION: No joint effusion, erosions, or drainable fluid collection to suggest septic arthritis. ACT 112: Negative or not required by law. Electronically signed by: Chencho Davila M.D. 01/25/2023 9:58 PM
[2023-01-25 23:23] LABS: Base Excess VBG -5.2 mEq/L; HCO3 VBG 21 mmol/L; Oxygen Saturation VBG < 60.0 %; PCO2 VBG 40 mmHg (38-50); PO2 VBG 27 mmHg; pH VBG 7.32 (7.36-7.41)
[2023-01-26] MEDS: LEVOTHYROXINE SODIUM 200 MCG TABLET PO SCH ×2 (00:19→06:59)
[2023-01-26] MEDS ORDERED: ACETAMINOPHEN 1000 MG/100 ML IV IV ONE (00:23)
[2023-01-26] MEDS: ACETAMINOPHEN 1,000 MG/100 ML VIAL IV STA ×2 (00:28→00:29)
[2023-01-26 00:32] LABS: Anion Gap 14 (3-11); BUN Creatinine Ratio 26.4 (10-20); Blood Urea Nitrogen 24 mg/dl (6-23); Carbon Dioxide 21 mmol/L (21-32); Chloride 97 mmol/L (98-107); Creatinine Clr Calc Pharmacy 63.4 ml/min; Est GFR (African American) 76.7 ml/min; Est GFR (Non-African American) 66.2 ml/min; Glucose 268 mg/dl (70-99(Fasting)); Magnesium 2.4 mg/dl (1.7-2.4); Sodium 132 mmol/L (136-145)
[2023-01-26 01:13] LABS: Blood Urea Nitrogen 23 mg/dl (6-23); Calcium 7.6 mg/dl (8.6-10.3); Carbon Dioxide 20 mmol/L (21-32); Chloride 98 mmol/L (98-107); Creatinine Clr Calc Pharmacy 70.4 ml/min; Est GFR (Non-African American) 75.1 ml/min; Glucose 289 mg/dl (70-99(Fasting))
[2023-01-26 01:48] LABS: Base Excess VBG -3.9 mEq/L; HCO3 VBG 22 mmol/L; Oxygen Saturation VBG 70.4 %; PCO2 VBG 40 mmHg (38-50); PO2 VBG 41 mmHg; pH VBG 7.34 (7.36-7.41)
[2023-01-26 03:25] LABS: Albumin Globulin Ratio 1.2 (0.9-2); Albumin Level 3.7 gm/dl (3.4-5.0); BUN Creatinine Ratio 28.4 (10-20); Bilirubin,Total 0.8 mg/dl (0.2-1.0); Calcium 7.8 mg/dl (8.6-10.3); Creatinine Clr Calc Pharmacy 71.3 ml/min; Est GFR (African American) 88.3 ml/min; Est GFR (Non-African American) 76.2 ml/min; Potassium 4.4 mmol/L (3.5-5.1); Total Protein 6.7 gm/dl (6.0-8.3)
[2023-01-26 03:26] LABS: Magnesium 2.4 mg/dl (1.7-2.4); Potassium 4.7 mmol/L (3.5-5.1)
[2023-01-26] MEDS: INSULIN ASPART PER UNIT CHARGE SC SCH ×5 (03:53→20:46)
[2023-01-26] MEDS ORDERED: CARBOHYDRATES FOR HYPOGLYCEMIA PO PRN (04:28)
[2023-01-26] MEDS ORDERED: GLUCOSE 10 TAB/TUBE PO PRN (04:28)
[2023-01-26] MEDS ORDERED: GLUCOSE 40% GEL 15 GM TUBE PO PRN (04:28)
[2023-01-26] MEDS ORDERED: GLUCAGON FOR INJ 1 MG VIAL SQ PRN (04:28)
[2023-01-26] MEDS ORDERED: DEXTROSE 50% 50 ML SYRINGE IV PRN (04:28)
[2023-01-26] MEDS ORDERED: INSULIN ASPART PER UNIT CHARGE SC STA (04:32)
[2023-01-26 06:08] LABS: Basophils # (auto) 0.03 K/uL (0.00-0.20); Basophils % (auto) 0.2 %; Eosinophils # (auto) 0.01 K/uL (0.00-0.50); Eosinophils % (auto) 0.1 %; Hematocrit (blood only) 36.4 % (37.0-47.0); Hemoglobin 13.3 g/dl (12.0-16.0); Immature Granulocytes # (auto) 0.13 K/uL (0.01-0.20); Immature Granulocytes % (auto) 0.8 %; Lymphocytes # (auto) 1.71 K/uL (1.20-3.40); Lymphocytes % (auto) 11.1 %; Mean Corpuscular Hemoglobin 33.3 pg (25.0-34.0); Mean Corpuscular Hgb Conc 36.5 g/dL (32.0-36.0); Mean Platelet Volume 9.9 fL (9.4-12.4); Monocytes % (auto) 5.2 %; Neutrophils % (auto) 82.6 %; Platelet Count 211 K/uL (130-400); RDW Coefficient of Variation 12.6 % (11.5-14.5); RDW Standard Deviation 42.2 fL (36.4-46.3); White Blood Count 15.38 K/ul (4.8-10.8)
[2023-01-26] MEDS: ENOXAPARIN INJ 40 MG/0.4 ML SYR SQ SCH (06:13)
[2023-01-26] MEDS: LEVOTHYROXINE SODIUM 25 MCG TABLET PO SCH (06:59)
[2023-01-26] MEDS: SODIUM CHLORIDE 0.9% 1,000 ML IV SCH ×2 (08:58→20:48)
[2023-01-26] MEDS: LANTUS PER UNIT CHARGE SQ SCH ×2 (08:58→20:46)
[2023-01-26] MEDS: ASPIRIN 81 MG ECTAB PO SCH (09:01)
[2023-01-26] MEDS: amLODIPine BESYLATE 5 MG TAB PO SCH (09:01)
[2023-01-26] MEDS: LOSARTAN POTASSIUM 50 MG TAB PO SCH (09:01)
[2023-01-26] MEDS: METOPROLOL SUCC 50MG EXT REL TAB PO SCH (09:01)
[2023-01-26] MEDS: FLUoxetine HCL 20 MG CAP PO SCH (09:01)
[2023-01-26] MEDS: GABAPENTIN 300 MG CAP PO SCH ×3 (09:01→20:40)
[2023-01-26] MEDS ORDERED: hydrALAZINE HCL 20 MG/ML VIAL IV STA (11:11)
[2023-01-26] MEDS ORDERED: ONDANSETRON INJ 2 MG/ML 2 ML VIAL IV PRN (11:11)
--- NOTE | 2023-01-26 11:23 | Hospitalist Progress Note ---
Date of Service January 26, 2023 Assessment & Plan (1) Sepsis: Plan: -Diagnosed with UTI by PCP on 12/22 but unable to pick abx from Pharmacy -Presented with leukocytosis, HR of 94, elevated lactate, and likely source with UA concerning for UTI -Chest xray was and CT of the abd/pelvis w/IV negative for infection -Patient is complaining of right hip/sacral pain which is acute on chronic-CT right hip negative for infection -Urine culture growing yeast which is likely just contaminant, however there were nitrites on the UA so likely will be a gram-negative shari -Blood cultures remain no growth to date -continue with Ceftriaxone and daptomycin-Hold stain while on Daptomycin -Restart fluids for ongoing metabolic acidosis and poor p.o. intake with nausea -Follow CBC, cultures (2) High anion gap metabolic acidosis: Plan: - AG elevated at 14, Bicarb at 22, lactate of 3.0, and initial VBG pH of 7.45- Repeat labs after 2L NSS bolus in the ED show AG of 12, bicarb of 20, lactate of 5.0, and VBG pH of 7.37 -Her elevated lactate is due to sepsis and likely severe dehydration, her falling VBG pH and Bicarb are at least partly due to increased chloride due to 2L NSS in the ED as chloride went from 93 to 102 -Lactate has now normalized and blood sugars are better controlled with IV fluids and insulin-VBG with normal pH, anion gap is closed -Continue normal saline at 80 MLS per hour -With hyponatremia corrected for hyperglycemia still low at 133, with hypokalemia, hypomagnesemia, and hypophosphatemia-all correcting -Follow BMP, magnesium (3) Hyperglycemia: Plan: -Patient was stopped taking her insulin prior to admission due to poor po intake with nausea -BSG on arrival was 412, AG elevated at 14, Bicarb at 22, lactate of 3.0, and initial VBG pH of 7.45-some component may be DKA Was given an insulin bolus in the ER but was never started on the insulin drip Continue Lantus 20 units twice daily and increase as needed-Home dose is Lantus 80 units once daily -Tighten down NovoLog sliding scale today -Continue IV fluids -Antiemetics added with Zofran (4) Hypertension: Plan: Blood pressures have been elevated Continue home amlodipine, losartan, metoprolol IV hydralazine x1 Pain control will also help (5) UTI (urinary tract infection): Plan: As above (6) Elevated LFTs: Plan: -Mildly elevated on admission and now improving -No acute findings reported on CT of the abd/pelvis with IV con -Patient does have a hx of hemochromatosis -Patient denies recent acetaminophen use or alcohol use -Likely due to her sepsis -Continue to trend daily CMP (7) Hip pain, right: Plan: -Patient states that this is a chronic pain and is exacerbated when she get's infections-CT right hip negative for acute issue -Denies recent trauma -No signs of obvious infection on inspection and palpation -Add on home hydrocodone for pain control -Continue home gabapentin (8) Hypothyroidism: Plan: TSH when last checked was 107 in 06/2022-no recheck since then Patient has been complaining of significant fatigue and outpatient notes Continue home dose of levothyroxine 225 mcg for now Follow TSH in the morning (9) Anxiety and depression: Plan: Continue home fluoxetine Plan DVT prophylaxis-Lovenox Disposition-continued stay in PCU Admission and Anticipated Discharge Date Admission Date: January 25, 2023 Subjective Patient feeling nauseated and having a lot of pain in her right hip which is acute on chronic for her. Also having some lower back pain. No chest pains or shortness of breath. Telemetry reviewed and with normal sinus rhythm Physical Exam Constitutional: well developed and + obese; no acute distress Respiratory: normal respiratory effort, lungs clear to auscultation Cardiovascular: RRR, no murmur, no edema Gastrointestinal (Abdomen): normal bowel sounds, soft, nontender, no hepatosplenomegaly Musculoskeletal: Positive tenderness to palpation over right hip and lower back Results & Data Results & Data Vital Signs (Past 12 Hours) Vital Signs Temp Pulse Pulse Resp BP BP BP 01/26/23 08:00 84 01/26/23 06:42 37.1 C 86 16 182/107 H 01/26/23 05:54 86 16 178/96 H 01/26/23 04:10 36.6 C 87 16 179/106 H 01/26/23 03:58 01/26/23 00:30 84 18 144/111 H Pulse Ox Pulse Ox O2 Del Method O2 Del Method 01/26/23 08:00 01/26/23 06:42 100 Room Air 01/26/23 05:54 96 Room Air 01/26/23 04:10 100 Room Air 01/26/23 03:58 97 Room Air 01/26/23 00:30 97 Laboratory Results CBC, CMP, magnesium, VBG, lactate reviewed Diagnostic Findings CT right hip and MRI lumbar spine reviewed PG Care Time/CCT Total # of Minutes Spent Total Time Spent with Patient: Total time spent is greater than 50% in coordination of care (as documented) at patient's floor/unit and/or counseling patient: Coding Level of Care Code 91131 SUB INP/OBS CARE 3/50MIN Diagnoses Sepsis, due to unspecified organism A41.9 Sepsis type: sepsis due to unspecified organism High anion gap metabolic acidosis E87.29 Hyperglycemia R73.9 Hypertension I10 UTI (urinary tract infection) N30.01 Hematuria presence: with hematuria Urinary tract infection type: acute cystitis Elevated LFTs R79.89 Hip pain, right M25.551 Hypothyroidism E03.9 Anxiety and depression F41.9; F32.9 (1) Sepsis Sepsis type: sepsis due to unspecified organism Qualified Code(s): A41.9 - Sepsis, unspecified organism (5) UTI (urinary tract infection) Hematuria presence: with hematuria Urinary tract infection type: acute cystitis Qualified Code(s): N30.01 - Acute cystitis with hematuria
[2023-01-26 13:27] LABS: Base Excess VBG -1.1 mEq/L; HCO3 VBG 22 mmol/L; Oxygen Saturation VBG 83.2 %; PCO2 VBG 33 mmHg (38-50); PO2 VBG 51 mmHg; pH VBG 7.44 (7.36-7.41)
[2023-01-26 13:32] LABS: Creatinine Clr Calc Pharmacy 70.4 ml/min; Est GFR (Non-African American) 75.1 ml/min; Magnesium 2.3 mg/dl (1.7-2.4); Phosphorus 1.8 mg/dl (2.5-4.9)
[2023-01-26] MEDS: cefTRIAXone SODIUM 2,000 MG in DEXTROSE 5 % MINI-B 50 ML IV SCH (16:09)
[2023-01-26] MEDS: POT PHOSPHATE MONOBASIC W/ SOD TAB PO SCH ×2 (16:13→20:40)
[2023-01-26] MEDS: HYDROCODONE/ACETAMOPHEN 5/325MG TAB PO PRN (16:21)
[2023-01-26] MEDS: GABAPENTIN 100 MG CAP PO SCH (20:40)
[2023-01-26] MEDS ORDERED: DAPTOmycin 425 MG in SYRINGE 0 ML IV SCH (21:00)
--- NOTE | 2023-01-26 22:03 | Electrocardiogram Report ---
Test Reason : Blood Pressure : / mmHG Vent. Rate : 081 BPM Atrial Rate : 081 BPM P-R Int : 164 ms QRS Dur : 078 ms QT Int : 412 ms P-R-T Axes : 044 -17 013 degrees QTc Int : 478 ms Normal sinus rhythm Inferior infarct (cited on or before 25-JAN-2023) Anterior infarct , age undetermined Abnormal ECG When compared with ECG of 18-SEP-2022 19:22, No significant change was found Confirmed by Dwayne Palafox ([id number]) on 01/26/2023 10:02:46 PM Referred By: REFERRED SELF Confirmed By:Dwayne Palafox
[2023-01-27] MEDS: HYDROCODONE/ACETAMOPHEN 5/325MG TAB PO PRN ×2 (02:38→10:05)
[2023-01-27 04:51] LABS: Albumin Globulin Ratio 1.3 (0.9-2); Albumin Level 3.5 gm/dl (3.4-5.0); BUN Creatinine Ratio 15.7 (10-20); Bilirubin,Total 0.7 mg/dl (0.2-1.0); Calcium 7.5 mg/dl (8.6-10.3); Creatinine Clr Calc Pharmacy 69.5 ml/min; Est GFR (African American) 85.8 ml/min; Globulin 2.6 gm/dl (2.5-4.0); Magnesium 2.2 mg/dl (1.7-2.4); Potassium 3.3 mmol/L (3.5-5.1); Total Protein 6.1 gm/dl (6.0-8.3)
[2023-01-27 05:12] LABS: Basophils # (auto) 0.03 K/uL (0.00-0.20); Basophils % (auto) 0.3 %; Eosinophils # (auto) 0.04 K/uL (0.00-0.50); Eosinophils % (auto) 0.4 %; Hematocrit (blood only) 34.9 % (37.0-47.0); Hemoglobin 12.6 g/dl (12.0-16.0); Immature Granulocytes # (auto) 0.07 K/uL (0.01-0.20); Immature Granulocytes % (auto) 0.6 %; Lymphocytes % (auto) 20.4 %; Mean Corpuscular Hemoglobin 33.3 pg (25.0-34.0); Mean Corpuscular Hgb Conc 36.1 g/dL (32.0-36.0); Mean Corpuscular Volume 92.3 fL (80.0-100.0); Mean Platelet Volume 10.1 fL (9.4-12.4); Monocytes # (auto) 0.97 K/uL (0.11-0.59); Neutrophils # (auto) 7.48 K/uL (1.40-6.50); Neutrophils % (auto) 69.3 %; Platelet Count 232 K/uL (130-400); RDW Coefficient of Variation 12.8 % (11.5-14.5); RDW Standard Deviation 42.9 fL (36.4-46.3); Red Blood Count 3.78 M/uL (4.20-5.40); White Blood Count 10.79 K/ul (4.8-10.8)
[2023-01-27] MEDS: ENOXAPARIN INJ 40 MG/0.4 ML SYR SQ SCH (05:35)
[2023-01-27 05:38] LABS: Thyroid Stimulating Hormone 63.786 uIu/ml (0.300-4.500)
[2023-01-27] MEDS: LEVOTHYROXINE SODIUM 200 MCG TABLET PO SCH (05:59)
[2023-01-27] MEDS: LEVOTHYROXINE SODIUM 25 MCG TABLET PO SCH (05:59)
[2023-01-27] MEDS ORDERED: POTASSIUM CHLORIDE CRTAB 20 MEQ TABCR PO STA (07:42)
[2023-01-27] MEDS: LANTUS PER UNIT CHARGE SQ SCH ×2 (08:40→21:26)
[2023-01-27] MEDS: INSULIN ASPART PER UNIT CHARGE SC SCH ×4 (08:40→21:26)
[2023-01-27] MEDS: LOSARTAN POTASSIUM 50 MG TAB PO SCH (08:41)
[2023-01-27] MEDS: FLUoxetine HCL 20 MG CAP PO SCH (08:41)
[2023-01-27] MEDS: METOPROLOL SUCC 50MG EXT REL TAB PO SCH (08:41)
[2023-01-27] MEDS: amLODIPine BESYLATE 5 MG TAB PO SCH (08:41)
[2023-01-27] MEDS: GABAPENTIN 300 MG CAP PO SCH ×3 (08:41→21:10)
[2023-01-27] MEDS: ASPIRIN 81 MG ECTAB PO SCH (08:42)
[2023-01-27] MEDS ORDERED: CALCIUM GLUCONATE 10% 1,000 MG in NS X1 BAG IV ONE (13:30)
[2023-01-27] MEDS: cefTRIAXone SODIUM 2,000 MG in DEXTROSE 5 % MINI-B 50 ML IV SCH (17:00)
--- NOTE | 2023-01-27 18:18 | Hospitalist Progress Note ---
Date of Service January 27, 2023 Assessment & Plan (1) Sepsis: Plan: -Diagnosed with UTI by PCP on 12/22 but unable to pick abx from Pharmacy -Presented with generalized weakness, acutely worsening right hip pain, nausea/vomiting, leukocytosis, HR of 94, elevated lactate, and likely source with UA concerning for UTI -Chest xray was negative and CT of the abd/pelvis w/IV negative for infection -Patient is complaining of right hip/sacral pain which is acute on chronic-CT right hip negative for infection -Urine culture growing yeast which is likely just contaminant, as well as alpha Streptococcus and lactobacillus -Blood cultures remain no growth to date -continue with Ceftriaxone but can discontinue daptomycin and restart her statin -Discontinue fluids as she is now improving with her p.o. intake -Follow CBC, BMP, blood cultures (2) High anion gap metabolic acidosis: Plan: - AG elevated at 14, Bicarb at 22, lactate of 3.0, and initial VBG pH of 7.45- Repeat labs after 2L NSS bolus in the ED show AG of 12, bicarb of 20, lactate of 5.0, and VBG pH of 7.37 -Her elevated lactate is due to sepsis and likely severe dehydration, her falling VBG pH and Bicarb are at least partly due to increased chloride due to 2L NSS in the ED as chloride went from 93 to 102 -Lactate has now normalized and blood sugars are better controlled with IV fluids and insulin-VBG with normal pH, anion gap is closed -With hyponatremia now improving, with hypokalemia persisting-replace potassium, with hypomagnesemia and hypophosphatemia-all normalized -Follow BMP, magnesium (3) Hip pain, right: Plan: -Patient states that this is a significant increase in acute on chronic pain-CT right hip negative for acute issue. CT abdomen/pelvis without evidence of acute issue that would cause right hip pain No radiculopathy type pain She does have a history of breast cancer which was treated with chemotherapy and radiation. There is no evidence of bony lesions on any of her imaging as per radiology reports -Denies recent trauma -No signs of obvious infection on inspection and palpation -Continue home hydrocodone for pain control -Continue home gabapentin -Consult orthopedic surgery to see if needs MRI of the hip and for further evaluation (4) Hypothyroidism: Plan: TSH when last checked was 107 in 06/2022-no recheck since then Is a history of Gina's thyroiditis and has been on thyroid replacement hormone for decades Patient has been complaining of significant fatigue, hair and skin changes She reports she has been taking the 225 mcg of levothyroxine more consistently since her last TSH check in June. She does take it on an empty stomach 2 hours before she eats or takes any other pills Repeat TSH here is improved but still significantly elevated at 63 Increase levothyroxine to 250 mcg daily and check TSH in 4 weeks Patient reports in the past at 1 point she was on 300 mcg daily (5) Hyperglycemia: Plan: -Patient was stopped taking her insulin prior to admission due to poor po intake with nausea -BSG on arrival was 412, AG elevated at 14, Bicarb at 22, lactate of 3.0, and initial VBG pH of 7.45-some component may be DKA Was given an insulin bolus in the ER but was never started on the insulin drip Continue Lantus 20 units twice daily and increase as needed-Home dose is Lantus 80 units once daily -Continue NovoLog sliding scale (6) Hypertension: Plan: Blood pressures were elevated but now improved with improved pain control Continue home amlodipine, losartan, metoprolol (7) UTI (urinary tract infection): Plan: As above (8) Elevated LFTs: Plan: -Mildly elevated -No acute findings reported on CT of the abd/pelvis with IV con -Patient does have a hx of hemochromatosis -Patient denies recent acetaminophen use or alcohol use -Likely due to her sepsis -Continue to trend daily CMP (9) Anxiety and depression: Plan: Continue home fluoxetine Plan DVT prophylaxis-Lovenox Disposition-continued stay in PCU Admission and Anticipated Discharge Date Admission Date: January 25, 2023 Subjective Continues to have ongoing severe pain in her right anterior hip radiating into her groin far worse than she ever had before. Denies any pain radiating down the right lower extremity. No numbness or weakness in the right lower extremity. Only minimal lower back pain. Pain is worse with walking. She reports right hip pain has been ongoing for about 6 months but much worse recently. Otherwise, she is eating and drinking, out of bed to chair today. Seems to have a little bit more energy. Telemetry with normal sinus rhythm Physical Exam Constitutional: well developed and + obese; no acute distress Respiratory: normal respiratory effort, lungs clear to auscultation Cardiovascular: RRR, no murmur, no edema Gastrointestinal (Abdomen): normal bowel sounds, soft, nontender, no hepatosplenomegaly Musculoskeletal: Right hip with positive tenderness to palpation in the groin and anterior superior iliac spine Results & Data Results & Data Vital Signs (Past 12 Hours) Vital Signs Temp Pulse Pulse Resp BP Pulse Ox O2 Del Method 01/27/23 16:00 36.6 C 68 12 112/57 L 97 Room Air 01/27/23 08:30 36.8 C 70 16 153/80 H 97 Room Air 01/27/23 08:00 36.7 C 74 18 107/66 97 Room Air 01/27/23 07:30 70 Laboratory Results CBC, CMP, TSH, magnesium, urine culture, blood cultures reviewed PG Care Time/CCT Total # of Minutes Spent Total Time Spent with Patient: Total time spent is greater than 50% in coordination of care (as documented) at patient's floor/unit and/or counseling patient: Coding Level of Care Code 72603 SUB INP/OBS CARE 3/50MIN Diagnoses Sepsis, due to unspecified organism A41.9 Sepsis type: sepsis due to unspecified organism High anion gap metabolic acidosis E87.29 Hip pain, right M25.551 Hypothyroidism E03.9 Hyperglycemia R73.9 Hypertension I10 UTI (urinary tract infection) N30.01 Hematuria presence: with hematuria Urinary tract infection type: acute cystitis Elevated LFTs R79.89 Anxiety and depression F41.9; F32.9 (1) Sepsis Sepsis type: sepsis due to unspecified organism Qualified Code(s): A41.9 - Sepsis, unspecified organism (7) UTI (urinary tract infection) Hematuria presence: with hematuria Urinary tract infection type: acute cystitis Qualified Code(s): N30.01 - Acute cystitis with hematuria
[2023-01-27] MEDS: GABAPENTIN 100 MG CAP PO SCH (21:10)
[2023-01-27] MEDS: ATORVASTATIN 40 MG TAB PO SCH (21:10)
[2023-01-28 04:14] LABS: Basophils # (auto) 0.02 K/uL (0.00-0.20); Basophils % (auto) 0.2 %; Eosinophils # (auto) 0.03 K/uL (0.00-0.50); Eosinophils % (auto) 0.3 %; Hematocrit (blood only) 34.6 % (37.0-47.0); Hemoglobin 12.5 g/dl (12.0-16.0); Immature Granulocytes # (auto) 0.06 K/uL (0.01-0.20); Immature Granulocytes % (auto) 0.5 %; Lymphocytes # (auto) 2.11 K/uL (1.20-3.40); Lymphocytes % (auto) 18.9 %; Mean Corpuscular Hemoglobin 33.1 pg (25.0-34.0); Mean Corpuscular Hgb Conc 36.1 g/dL (32.0-36.0); Mean Corpuscular Volume 91.5 fL (80.0-100.0); Mean Platelet Volume 9.9 fL (9.4-12.4); Monocytes # (auto) 1.02 K/uL (0.11-0.59); Monocytes % (auto) 9.1 %; Neutrophils # (auto) 7.95 K/uL (1.40-6.50); Platelet Count 213 K/uL (130-400); RDW Coefficient of Variation 12.7 % (11.5-14.5); RDW Standard Deviation 42.2 fL (36.4-46.3); Red Blood Count 3.78 M/uL (4.20-5.40); White Blood Count 11.19 K/ul (4.8-10.8)
[2023-01-28 04:36] LABS: Albumin Globulin Ratio 1.3 (0.9-2); Albumin Level 3.5 gm/dl (3.4-5.0); BUN Creatinine Ratio 23.3 (10-20); Bilirubin,Total 0.6 mg/dl (0.2-1.0); C Reactive Protein 0.6 mg/dl (0-0.5); Calcium 8.1 mg/dl (8.6-10.3); Creatinine Clr Calc Pharmacy 64.3 ml/min; Est GFR (African American) 77.8 ml/min; Est GFR (Non-African American) 67.1 ml/min; Globulin 2.7 gm/dl (2.5-4.0); Magnesium 2.2 mg/dl (1.7-2.4); Total Protein 6.2 gm/dl (6.0-8.3)
[2023-01-28] MEDS: HYDROCODONE/ACETAMOPHEN 5/325MG TAB PO PRN ×2 (04:50→08:57)
[2023-01-28] MEDS: LEVOTHYROXINE SODIUM 50 MCG TABLET PO SCH (06:20)
[2023-01-28] MEDS: LEVOTHYROXINE SODIUM 200 MCG TABLET PO SCH (06:20)
[2023-01-28] MEDS: ENOXAPARIN INJ 40 MG/0.4 ML SYR SQ SCH (06:20)
[2023-01-28] MEDS: ASPIRIN 81 MG ECTAB PO SCH (08:28)
[2023-01-28] MEDS: GABAPENTIN 300 MG CAP PO SCH ×3 (08:28→20:37)
[2023-01-28] MEDS: FLUoxetine HCL 20 MG CAP PO SCH (08:28)
[2023-01-28] MEDS: METOPROLOL SUCC 50MG EXT REL TAB PO SCH (08:28)
[2023-01-28] MEDS: LOSARTAN POTASSIUM 50 MG TAB PO SCH (08:29)
[2023-01-28] MEDS: amLODIPine BESYLATE 5 MG TAB PO SCH (08:29)
[2023-01-28] MEDS: LANTUS PER UNIT CHARGE SQ SCH ×2 (08:31→20:36)
[2023-01-28] MEDS: INSULIN ASPART PER UNIT CHARGE SC SCH ×4 (08:32→20:35)
--- NOTE | 2023-01-28 13:34 | Orthopedic Consultation ---
Date of Service January 28, 2023 Assessment & Plan (1) Hip pain, right: She was seen and examined by Dr. Barnes today as well. We do not recommend MRI of the right hip. Her symptoms regarding the hip pain are consistent with trochanteric bursitis vs referred pain from her lumbar spine, not a septic hip. She does see Dr. Pickard/Nicholas Jordan for her shoulder as an outpatient and could certainly see them about her hip at her next office visit for possible trochanteric bursa injection. Other option would be pain management referral. History of Present Illness Reason for Consultation: . Requesting Physician: . Attending Physician: Stephanie Lee MD . Kassi is a 67 year old patient admitted with recurrent UTI and right hip pain. Orthopedics was consulted for evaluation of the hip and decided whether MRI is needed. She states that she has had intermittent right hip pain for about 1 year now. Describes the pain laterally. No groin pain. The last week it is the worst that she has experienced. She does have a h/o spine surgery done in [place]. Allergies Allergy/AdvReac Type Severity Reaction Status Date / Time adhesive Allergy Unknown "BLISTERS Verified 01/22/23 14:15 AND PULLS MY SKIN OFF" codeine AdvReac Mild Nausea Verified 01/22/23 14:15 erythromycin base AdvReac Unknown STOMACH Verified 01/22/23 14:15 PAIN indomethacin AdvReac Unknown "THINS Verified 01/22/23 14:15 BLOOD OUT TOO MUCH" valacyclovir [From Valtrex] AdvReac Unknown Palpitation Verified 01/22/23 14:15 s Home Medications Medication Instructions Recorded Confirmed Type omega-3 acid ethyl esters 1 gram 2 g PO DAILY 08/30/18 01/25/23 History capsule cyanocobalamin (vitamin B-12) 1,000 mcg PO DAILY 11/30/18 01/25/23 History 1,000 mcg tablet meclizine 25 mg tablet 25 mg PO TID PRN Dizziness 11/30/18 01/25/23 History aspirin 81 mg tablet,delayed 81 mg PO DAILY 01/30/20 01/25/23 History release furosemide 20 mg tablet (Lasix) 20 mg PO QAM PRN Fluid Retention 02/07/20 01/25/23 Rx #90 tabs calcium carbonate 600 mg-vitamin 1 cap PO DAILY 07/19/20 01/22/23 History D3 12.5 mcg (500 unit) capsule (Calcium 600 with Vitamin D3) lorazepam 0.5 mg tablet 0.5 mg PO TID PRN anxiety #30 tabs 08/15/20 01/25/23 Rx gabapentin 100 mg capsule 100 mg PO .COMPLEX #90 caps 01/11/21 01/25/23 Rx metformin 1,000 mg tablet 1,000 mg PO BID #180 tabs 01/23/21 01/25/23 Rx levothyroxine 200 mcg tablet 200 mcg PO QAM #90 tabs 02/05/21 01/25/23 Rx levothyroxine 25 mcg tablet 25 mcg PO DAILY #90 tabs 02/05/21 01/25/23 Rx blood-glucose meter (OneTouch #1 ea 05/14/21 01/22/23 Rx Ultra2 Meter kit) blood sugar diagnostic #300 ea 07/18/21 01/22/23 Rx blood sugar diagnostic (OneTouch #100 ea 08/30/21 01/22/23 Rx Verio test strips) fluoxetine 40 mg capsule 40 mg PO QAM #90 caps 10/29/21 01/25/23 Rx insulin aspart U-100 100 unit/mL See Rx Instructions subcut TID #15 12/04/21 01/25/23 Rx (3 mL) subcutaneous pen (Novolog mL FlexPen U-100 Insulin aspart) ondansetron HCl 4 mg tablet 4 mg PO QID PRN nausea and 02/27/22 01/25/23 Rx vomiting #30 tabs atorvastatin 40 mg tablet 40 mg PO QPM #90 tabs 06/05/22 01/25/23 Rx ipratropium 0.5 mg-albuterol 3 mg 3 ml inhalation Q4H PRN wheezing 07/11/22 01/25/23 Rx (2.5 mg base)/3 mL nebulization #180 mL soln gabapentin 300 mg capsule 300 mg PO TID #270 caps 07/12/22 01/25/23 Rx cholecalciferol (vitamin D3) 25 0 mcg PO DAILY 09/18/22 01/25/23 History mcg (1,000 unit) tablet (Vitamin D3) diclofenac sodium 1 % topical gel 2 g topical QID PRN Pain 09/18/22 01/25/23 History (Arthritis Pain (diclofenac)) fluticasone propionate 50 1 spray intranasal DAILY PRN 09/18/22 01/25/23 History mcg/actuation nasal allergies spray,suspension insulin degludec 200 unit/mL (3 80 unit subcut HS 09/18/22 01/25/23 History mL) subcutaneous pen (Tresiba FlexTouch U-200 insulin) semaglutide 0.25 mg or 0.5 mg (2 See Rx Instructions subcut 10/28/22 01/25/23 Rx mg/3 mL) subcutaneous pen injector .COMPLEX #3 mL (Ozempic) amlodipine 10 mg tablet 10 mg PO DAILY #90 tabs 12/06/22 01/25/23 Rx losartan 100 1 tab PO DAILY #90 tabs 12/06/22 01/25/23 Rx mg-hydrochlorothiazide 25 mg tablet metoprolol succinate 50 mg 50 mg PO DAILY #90 tabs 12/06/22 01/25/23 Rx tablet,extended release 24 hr cyclobenzaprine 5 mg tablet 5 mg PO TID PRN muscle spasm #30 01/01/23 01/25/23 Rx tabs hydrocodone 5 mg-acetaminophen 300 See Rx Instructions PO Q8H PRN 01/01/23 01/25/23 Rx mg tablet pain #30 tabs Past Med/Surg History Medical History Cat scratch of left lower leg Urinary symptom or sign Nasal congestion Left leg injury Cellulitis of right arm Urinary tract infection Cough Left flank pain Acute bronchitis Localized swelling, mass and lump, neck Disc degeneration, lumbar Dyslipidemia Infiltrating lobular carcinoma UTI (urinary tract infection) Hypokalemia Malignant neoplasm of upper-outer quadrant of right breast in female, estrogen receptor positive Pneumonia hospitalization in June 2018 Morbid obesity Anemia Peripheral neuropathy Venous insufficiency (chronic) (peripheral) History of recent steroid use Diabetes mellitus, type 2 Neutropenia Cancer BREAST CANCER-RIGHT SIDE Hx of breast cancer HX OF BILATERAL MASTECTOMY NOV 2017. DO NOT USE RIGHT ARM Hypothyroidism Vitamin D deficiency Morbid obesity with BMI of 50.0-59.9, adult HLD (hyperlipidemia) Benign essential HTN Sciatica Peripheral neuropathy secondary to back surgery Venous insufficiency Fatty liver Degenerative disc disease GERD (gastroesophageal reflux disease) Diabetes mellitus, type 2 INSULIN/ORAL MEDS- Hypothyroidism Anxiety PANIC ATTACKS Hypertension Surgical History History of mastectomy BILATERAL, 12/15/17 @ [facility]. DO NOT USE RIGHT ARM History of hip surgery AN INFANT-LEFT SIDE History of tonsillectomy History of adenoidectomy History of laminectomy X 2 INCL FUSION-LUMBAR History of section X 2 History of dilatation and curettage History of cholecystectomy History of cardiac cath GREATER THAN 6 YRS AGO-NO STENTS-[facility] [place] Family History Mother Family history of diabetes mellitus Heart disease Hypertension Kidney disease Father , age 57 Heart disease Hodgkins disease HLD (hyperlipidemia) Hypertension Sister Hypertension Daughter Colonic polyp Daughter Appendiceal carcinoid tumor had surgery age 22 / no other treatment Abnormal breast exam, Onset Age: 31 mammogram scheduled for 09-18-18 spots , 1 in each breast Aunt Gallbladder cancer, carcinoma Family/Other Breast cancer cousin Social History Smoking Status: Never smoker Tobacco Type: Cigarettes Age Started Using Tobacco: 21; packs per day: 1.5; Cigarettes Per Day: 30; Second Hand Exposure: Yes (occasionally); Do You Dip or Chew Tobacco: No; Hx Alcohol Use: No Hx Substance Use: No Preferred Language: Tuvaluan Communication Ability: Effective Visual Impairment: No Limitations Hearing Ability: Hard of Hearing Brazing Machine Tender Required: No Beliefs That Will Affect Care: None marital status: / Current Living Situation: Alone Current Living Situation Comment: alone current occupational status: retired current occupation: Retired / works Adminisrative associate for [email or web address] How many Children do You have: 2 Other Information That Helps Us Care for You: No Feels Safe at Home: Yes Safety Concerns: Feels Safe At This Time Childhood Exposure to Second-Hand Smoke: Yes Diet: regular caffeine: Yes (Diet soda ) Dental Care, Regularly: No Physical Activity Frequency: 1-2 Times per Week Seatbelt Use: always Sunscreen Use: Yes Assistive Devices: Raised Toilet Seat and Walker Review of Systems All systems reviewed & are unremarkable except as noted in HPI & below. Physical Exam .alert and oriented. NAD Right leg: No pain or stiffness with range of motion of the hip. Able to do a good straight leg raise. No discoloration around the hip. Skin intact around the hip. She is mildly tender over the lateral hip. Results & Data Results & Data Laboratory Results . Diagnostic Findings .ct scan of the right hip from 01/25 shows some mild degenerative changes of the hip/small ossicle of the labrum, no effusion. No fractures. PG Care Time/CCT Total # of Minutes Spent Total Time Spent with Patient: Total time spent is greater than 50% in coordination of care (as documented) at patient's floor/unit and/or counseling patient: Coding Level of Care Code 90337 IN/OBS CONSULT LVL 3,45M Diagnoses Hip pain, right M25.551
[2023-01-28] MEDS: cefTRIAXone SODIUM 2,000 MG in DEXTROSE 5 % MINI-B 50 ML IV SCH (16:18)
--- NOTE | 2023-01-28 18:15 | Hospitalist Progress Note ---
Date of Service January 28, 2023 Assessment & Plan (1) Sepsis: Plan: -Diagnosed with UTI by PCP on 12/22 but unable to pick abx from Pharmacy -Presented with generalized weakness, acutely worsening right hip pain, nausea/vomiting, leukocytosis, HR of 94, elevated lactate, and likely source with UA concerning for UTI -Chest xray was negative and CT of the abd/pelvis w/ con negative for infection -Patient is complaining of right hip/sacral pain which is acute on chronic-CT right hip negative for infection -Urine culture growing yeast which is likely just contaminant, as well as alpha Streptococcus and lactobacillus -Blood cultures remain no growth to date -continue with Ceftriaxone but have since discontinued daptomycin -plan to dc on po abx to finish out 7 day course of abx -Follow CBC, BMP, blood cultures (2) Hip pain, right: Plan: -Patient states that this is a significant increase in acute on chronic pain-CT right hip negative for acute issue. CT abdomen/pelvis without evidence of acute issue that would cause right hip pain No radiculopathy type pain She does have a history of breast cancer which was treated with chemotherapy and radiation. There is no evidence of bony lesions on any of her imaging as per radiology reports -Denies recent trauma -No signs of obvious infection on inspection and palpation , ESR and CRP are fairly normal -Continue home hydrocodone for pain control -Continue home gabapentin -Consult orthopedic surgery to see if needs MRI of the hip and for further evaluation-thinks could be from greater trochanteric bursitis vs lumbar radicular pain-recommends injection in office of bursa if persists. No MRI needed (3) Hypothyroidism: Plan: TSH when last checked was 107 in 06/2022-no recheck since then Is a history of Gina's thyroiditis and has been on thyroid replacement hormone for decades Patient has been complaining of significant fatigue, hair and skin changes She reports she has been taking the 225 mcg of levothyroxine more consistently since her last TSH check in June. She does take it on an empty stomach 2 hours before she eats or takes any other pills Repeat TSH here is improved but still significantly elevated at 63 Increased levothyroxine to 250 mcg daily and check TSH in 4 weeks Patient reports in the past at one point she was on 300 mcg daily so she may ebd up needing higher dose (4) Hyperglycemia: Plan: -Patient was stopped taking her insulin prior to admission due to poor po intake with nausea -BSG on arrival was 412, AG elevated at 14, Bicarb at 22, lactate of 3.0, and initial VBG pH of 7.45-some component may be DKA Was given an insulin bolus in the ER but was never started on the insulin drip Continue Lantus 20 units twice daily -Home dose is Lantus 80 units once daily -Continue NovoLog sliding scale and tighten down today for some hyperglycemia (5) High anion gap metabolic acidosis: Plan: now resolved -likely was due to sepsis and dehydration (6) Hypertension: Plan: Blood pressures were elevated but now improved with improved pain control Continue home amlodipine, losartan, metoprolol (7) UTI (urinary tract infection): Plan: As above (8) Elevated LFTs: Plan: -Mildly elevated but now worse than before -No acute findings reported on CT of the abd/pelvis with IV con, no abd pain or tenderness, nausea resolved -Patient does have a hx of hemochromatosis -Patient denies recent acetaminophen use or alcohol use -Likely due to her sepsis and hemochromatosis, could be from antibiotics? -Continue to trend daily CMP (9) Anxiety and depression: Plan: Continue home fluoxetine Plan DVT prophylaxis-Lovenox Disposition-continued stay but downgrade to med/surg, likely dc to home with home health with daughter tomorrow if home health has been arranged. Called and left for daughter Sophie Admission and Anticipated Discharge Date Admission Date: January 25, 2023 Subjective Pt feeling better today. Feels tired overall. Still with right hip pain but not as bad today. Is eating more today, appetite improved. Tele with NSR, normal rates Physical Exam Constitutional: well developed and + obese; no acute distress Respiratory: normal respiratory effort, lungs clear to auscultation Cardiovascular: RRR, no murmur, no edema Gastrointestinal (Abdomen): normal bowel sounds, soft, nontender, no hepatosplenomegaly Psychiatric: Orientation: alert and oriented x 3 Results & Data Results & Data Vital Signs (Past 12 Hours) Vital Signs Pulse Pulse Resp BP Pulse Ox O2 Del Method 01/28/23 16:25 75 14 143/70 H 98 Room Air 01/28/23 16:00 75 01/28/23 11:41 75 01/28/23 11:40 74 14 140/69 98 Room Air 01/28/23 08:55 77 16 157/74 H 97 Room Air 01/28/23 08:53 75 Laboratory Results CBC, CMP, ESR, CRP, magnesium reviewed PG Care Time/CCT Total # of Minutes Spent Total Time Spent with Patient: Total time spent is greater than 50% in coordination of care (as documented) at patient's floor/unit and/or counseling patient: Coding Level of Care Code 23477 SUB INP/OBS CARE 2/35MIN Diagnoses Sepsis, due to unspecified organism A41.9 Sepsis type: sepsis due to unspecified organism Hip pain, right M25.551 Hypothyroidism E03.9 Hyperglycemia R73.9 High anion gap metabolic acidosis E87.29 Hypertension I10 UTI (urinary tract infection) N30.01 Hematuria presence: with hematuria Urinary tract infection type: acute cystitis Elevated LFTs R79.89 Anxiety and depression F41.9; F32.9 (1) Sepsis Sepsis type: sepsis due to unspecified organism Qualified Code(s): A41.9 - Sepsis, unspecified organism (7) UTI (urinary tract infection) Hematuria presence: with hematuria Urinary tract infection type: acute cystitis Qualified Code(s): N30.01 - Acute cystitis with hematuria
[2023-01-28] MEDS: ATORVASTATIN 40 MG TAB PO SCH (20:37)
[2023-01-28] MEDS: GABAPENTIN 100 MG CAP PO SCH (20:37)
[2023-01-28] MEDS: DICLOFENAC SOD 1% GEL 100 GM TUBE EXT SCH ×2 (20:37→21:19)
[2023-01-28] MEDS ORDERED: LORazepam 0.5 MG TAB PO PRN (22:02)
[2023-01-29] MEDS: LEVOTHYROXINE SODIUM 50 MCG TABLET PO SCH (06:09)
[2023-01-29] MEDS: LEVOTHYROXINE SODIUM 200 MCG TABLET PO SCH (06:09)
[2023-01-29] MEDS: ENOXAPARIN INJ 40 MG/0.4 ML SYR SQ SCH (06:09)
[2023-01-29] MEDS: HYDROCODONE/ACETAMOPHEN 5/325MG TAB PO PRN ×2 (07:09→13:31)
[2023-01-29 08:02] VITALS: BP 137/82; PULSE 75; RESP 17; TEMP 98.2; O2SAT 97
[2023-01-29] MEDS: FLUoxetine HCL 20 MG CAP PO SCH (08:24)
[2023-01-29] MEDS: amLODIPine BESYLATE 5 MG TAB PO SCH (08:24)
[2023-01-29] MEDS: METOPROLOL SUCC 50MG EXT REL TAB PO SCH (08:24)
[2023-01-29] MEDS: ASPIRIN 81 MG ECTAB PO SCH (08:24)
[2023-01-29] MEDS: GABAPENTIN 300 MG CAP PO SCH ×2 (08:24→13:39)
[2023-01-29] MEDS: LOSARTAN POTASSIUM 50 MG TAB PO SCH (08:24)
[2023-01-29] MEDS: DICLOFENAC SOD 1% GEL 100 GM TUBE EXT SCH ×2 (08:25→13:39)
[2023-01-29] MEDS: LANTUS PER UNIT CHARGE SQ SCH (08:32)
[2023-01-29] MEDS: INSULIN ASPART PER UNIT CHARGE SC SCH ×2 (08:33→12:28)
[2023-01-29 08:55] LABS: Basophils # (auto) 0.03 K/uL (0.00-0.20); Basophils % (auto) 0.3 %; Eosinophils # (auto) 0.06 K/uL (0.00-0.50); Eosinophils % (auto) 0.6 %; Hematocrit (blood only) 33.7 % (37.0-47.0); Hemoglobin 12.1 g/dl (12.0-16.0); Lymphocytes % (auto) 18.7 %; Mean Corpuscular Hgb Conc 35.9 g/dL (32.0-36.0); Mean Corpuscular Volume 91.8 fL (80.0-100.0); Mean Platelet Volume 10.3 fL (9.4-12.4); Monocytes # (auto) 0.86 K/uL (0.11-0.59); Monocytes % (auto) 8.5 %; Neutrophils % (auto) 70.9 %; Platelet Count 199 K/uL (130-400); RDW Coefficient of Variation 12.5 % (11.5-14.5); Red Blood Count 3.67 M/uL (4.20-5.40); White Blood Count 10.15 K/ul (4.8-10.8)
[2023-01-29] MEDS ORDERED: CYANOCOBALAMIN (B-12) 500 MCG TABLET PO SCH (09:00)
[2023-01-29 09:10] LABS: Albumin Level 3.3 gm/dl (3.4-5.0); Bilirubin,Total 0.7 mg/dl (0.2-1.0); Calcium 8.3 mg/dl (8.6-10.3); Potassium 4.2 mmol/L (3.5-5.1)
[2023-01-29 09:16] LABS: Albumin Globulin Ratio 1.3 (0.9-2); BUN Creatinine Ratio 27.6 (10-20); Creatinine Clr Calc Pharmacy 66.1 ml/min; Est GFR (Non-African American) 69.9 ml/min; Globulin 2.5 gm/dl (2.5-4.0); Total Protein 5.8 gm/dl (6.0-8.3)
--- NOTE | 2023-01-29 13:50 | Discharge Summary ---
Discharge Summary Date of Service January 29, 2023 Notes For Next Care Provider Medication Changes From Visit Amoxicillin 500mg po bid x 2 more days Changed Tresiba to 30 units bid Admission HPI Per Admitting Provider Kassi is a 67 year old female with a PMH significant for Breast cancer S/P chemotherapy/radiation therapy, S/P BL mastectomy, hemo poorly controlled DMII, hypothyroidism, hemochromatosis (follows with heme/onc), piriformis syndrome of the RLE who presented tot he [facility] ED on 01/25 for right hip pain, recently diagnosed UTI by PCP, and generalized weakness. She was noted to be hypertensive at 201/91 but otherwise table. Labs were significant for a leukocytosis of 13, neutrophil predominance of 10.82, glucose of 417, AG of 14 with bicarb of 22, potassium of 4.3, corrected sodium of 134, initial lactate of 3.0, total bili of 1.3 with AST of 60, ALT of 79, procal WNL, and UA with 3+ glucose, 2+ ketones, nitrite positive, > 30 WBC, 1+ bacteria. Chest xray was read as "Cardiomegaly and mild pulmonary edema. No evidence of pneumonia.". CT of the abd/pelvis with IV con was read as "No acute abnormalities to explain diffuse abdominal pain.". Prior to admission the patient was given a dose of Ceftriaxone, 2L NSS, 10 mg IV reglan, and was started on an insulin drip with [facility] protocol. At the time of the exam the patient was lying in bed and appears ill but in no acute distress. She states that she was experiencing dysuria, urinary frequency, and right hip/buttocks pain at the beginning of the week so she made an appointment with her PCP. Her UA was consistent for UTI and her PCP prescribed her a course of Cephalexin but she was in too much pain to pick it up. She started to develop nausea with poor oral intake last night which is why she stopped taking her insulin. This am she had suprapubic pain and multiple episodes of bilious, non-bloody emesis. When asked, she denies choking/aspirating with her recent emesis. She states that her chronic right hip pain is always exacerbated when she gets UTI's. She denies recent fever, chest pain, SOB, cough, hemoptysis, hematuria, diarrhea, LE pain/swelling, and recent trauma. She is still experiencing nausea, which she attributes to her severe left hip pain. She confirms that she did not have her am medications today. She is a full code and wishes for her daughter to make medical decisions for her if she cannot make decisions herself. I was able to call and speak with the patient's daughter, Sophie Hobson ([phone]). She states that her mother has been clinically declining for many months and has been resistant to look into assisted living. I explained that we can consult PT/OT and CM to get a better idea of how much extra assistance on DC and what their options are. Please refer to Dr. Barnes's attestation for any changes to the treatment plan Principal Dx & Hospital Course #1 = Principal Diagnosis (1) Sepsis: -Diagnosed with UTI by PCP on 12/22 but unable to pick abx from Pharmacy -Presented with generalized weakness, acutely worsening right hip pain, nausea/vomiting, leukocytosis, HR of 94, elevated lactate, and likely source with UA concerning for UTI -Chest xray was negative and CT of the abd/pelvis w/ con negative for infection -Patient is complaining of right hip/sacral pain which is acute on chronic-CT right hip negative for infection -Urine culture growing yeast which is likely just contaminant, as well as alpha Streptococcus and lactobacillus -Blood cultures remain no growth to date -received Ceftriaxone -plan to dc on po amox to finish out 7 day course of abx (2) Hip pain, right: -Patient states that this is a significant increase in acute on chronic pain-CT right hip negative for acute issue. CT abdomen/pelvis without evidence of acute issue that would cause right hip pain No radiculopathy type pain She does have a history of breast cancer which was treated with chemotherapy and radiation. There is no evidence of bony lesions on any of her imaging as per radiology reports -Denies recent trauma -No signs of obvious infection on inspection and palpation , ESR and CRP are fairly normal -Continue home hydrocodone for pain control -Continue home gabapentin -Consult orthopedic surgery to see if needs MRI of the hip and for further evaluation-thinks could be from greater trochanteric bursitis vs lumbar radicular pain-recommends injection in office of bursa if persists. No MRI needed (3) Hypothyroidism: TSH when last checked was 107 in 06/2022-no recheck since then Is a history of Gina's thyroiditis and has been on thyroid replacement hormone for decades Patient has been complaining of significant fatigue, hair and skin changes She reports she has been taking the 225 mcg of levothyroxine more consistently since her last TSH check in June. She does take it on an empty stomach 2 hours before she eats or takes any other pills Repeat TSH here is improved but still significantly elevated at 63 Increased levothyroxine to 250 mcg daily and check TSH in 4 weeks Patient reports in the past at one point she was on 300 mcg daily so she may ebd up needing higher dose-check TSH in 4 weeks as outpt (4) Hyperglycemia: -Patient was stopped taking her insulin prior to admission due to poor po intake with nausea -BSG on arrival was 412, AG elevated at 14, Bicarb at 22, lactate of 3.0, and initial VBG pH of 7.45-some component may be DKA Was given an insulin bolus in the ER but was never started on the insulin drip Continue Yhivina32 units twice daily -home dose was 80 units once daily but may not need that dose for now continue home insulin with 1:7 carb ration for Novolog f/u with [facility] as scheduled in 2-3 weeks (5) High anion gap metabolic acidosis: now resolved -likely was due to sepsis and dehydration (6) Hypertension: Blood pressures were elevated but now improved with improved pain control Continue home amlodipine, losartan,HCTZ, metoprolol (7) UTI (urinary tract infection): As above (8) Elevated LFTs: -Mildly elevated and improved -No acute findings reported on CT of the abd/pelvis with IV con, no abd pain or tenderness, nausea resolved -Patient does have a hx of hemochromatosis -Patient denies recent acetaminophen use or alcohol use -Likely due to her sepsis and hemochromatosis, could be from antibiotics? -follow as outpt with Hepatology (9) Anxiety and depression: Continue home fluoxetine Plan DVT prophylaxis-Lovenox Disposition- dc to home with home health with daughter today Discharge Exam Constitutional well developed and + obese; no acute distress Respiratory normal respiratory effort, lungs clear to auscultation Cardiovascular RRR, no murmur, no edema Gastrointestinal (Abdomen) normal bowel sounds, soft, nontender, no hepatosplenomegaly Musculoskeletal +TTP over right greater trochanter Psychiatric Orientation: alert and oriented x 3 Updated Medication List Medication Instructions Recorded Confirmed Type omega-3 acid ethyl esters 1 gram 2 g PO DAILY 08/30/18 01/25/23 History capsule cyanocobalamin (vitamin B-12) 1,000 mcg PO DAILY 11/30/18 01/25/23 History 1,000 mcg tablet meclizine 25 mg tablet 25 mg PO TID PRN Dizziness 11/30/18 01/25/23 History aspirin 81 mg tablet,delayed 81 mg PO DAILY 01/30/20 01/25/23 History release calcium carbonate 600 mg-vitamin 1 cap PO DAILY 07/19/20 01/22/23 History D3 12.5 mcg (500 unit) capsule (Calcium 600 with Vitamin D3) blood-glucose meter (OneTouch #1 ea 05/14/21 01/22/23 Rx Ultra2 Meter kit) blood sugar diagnostic #300 ea 07/18/21 01/22/23 Rx blood sugar diagnostic (OneTouch #100 ea 08/30/21 01/22/23 Rx Verio test strips) ondansetron HCl 4 mg tablet 4 mg PO QID PRN nausea and 02/27/22 01/25/23 Rx vomiting #30 tabs cholecalciferol (vitamin D3) 25 0 mcg PO DAILY 09/18/22 01/25/23 History mcg (1,000 unit) tablet (Vitamin D3) fluticasone propionate 50 1 spray intranasal DAILY PRN 09/18/22 01/25/23 History mcg/actuation nasal allergies spray,suspension semaglutide 0.25 mg or 0.5 mg (2 See Rx Instructions subcut 10/28/22 01/25/23 Rx mg/3 mL) subcutaneous pen injector .COMPLEX #3 mL (Ozempic) amlodipine 10 mg tablet 10 mg PO DAILY #30 tabs 01/29/23 Rx amoxicillin 500 mg capsule 500 mg PO BID #4 caps 01/29/23 Rx atorvastatin 40 mg tablet 40 mg PO QPM #30 tabs 01/29/23 Rx cyclobenzaprine 5 mg tablet 5 mg PO TID PRN muscle spasm #30 01/29/23 Rx tabs diclofenac sodium 1 % topical gel 2 g topical QID PRN Pain #100 grams 01/29/23 Rx (Arthritis Pain (diclofenac)) fluoxetine 40 mg capsule 40 mg PO QAM #30 caps 01/29/23 Rx furosemide 20 mg tablet (Lasix) 20 mg PO QAM PRN Fluid Retention 01/29/23 Rx #30 tabs gabapentin 100 mg capsule 100 mg PO .COMPLEX #30 caps 01/29/23 Rx gabapentin 300 mg capsule 300 mg PO TID #90 caps 01/29/23 Rx hydrocodone 5 mg-acetaminophen 300 1 tab PO Q8H PRN pain #30 tabs 01/29/23 Rx mg tablet insulin aspart U-100 100 unit/mL See Rx Instructions subcut TID #15 01/29/23 Rx (3 mL) subcutaneous pen mL insulin degludec 200 unit/mL (3 30 unit (0.15 mL) subcut BID #9 mL 01/29/23 Rx mL) subcutaneous pen (Tresiba FlexTouch U-200 insulin) ipratropium 0.5 mg-albuterol 3 mg 3 ml inhalation Q4H PRN wheezing 01/29/23 Rx (2.5 mg base)/3 mL nebulization #180 mL soln levothyroxine 200 mcg tablet 200 mcg PO QAM #30 tabs 01/29/23 Rx levothyroxine 50 mcg tablet 50 mcg PO DAILYBB #30 tabs 01/29/23 Rx (Synthroid) losartan 100 1 tab PO DAILY #30 tabs 01/29/23 Rx mg-hydrochlorothiazide 25 mg tablet metformin 1,000 mg tablet 1,000 mg PO BID #60 tabs 01/29/23 Rx metoprolol succinate 50 mg 50 mg PO DAILY #30 tabs 01/29/23 Rx tablet,extended release 24 hr pen needle, diabetic 31 gauge x #100 ea 01/29/23 Rx 1/4" (Pen Needle) Hospital Stay Data Consultations 01/25/23 17:56 ED Decision to Admit Stat 01/27/23 18:50 Consult Orthopedic Surgery Routine Diagnostic Imagining Performed 01/25/23 15:44 CT abd pelvis IV con only Stat 01/25/23 19:52 CT hip RT w con Stat Pending Results Patient Have Any Pending Studies at Discharge: Yes (blood cultures final-no growth to date) Discharge Instructions Given to Patient (Per Discharging Provider) Please finish out 2 more days of the antibiotic called amoxicillin for your UTI. Please continue taking insulin as per medication list on discharge. Your Lantus dose was split into two doses for improved control of your diabetes. Your right hip pain is from bursitis of the hip and the Orthopedic Surgeon said he could inject it with steroids when you return to the office for a follow up visit after you recover from this illness. Your thyroid function is severely low and your dose of thyroid medicine was increased to 250 mcg daily. Your PCP should repeat your TSH blood work in 4 weeks and further increase the dose if needed. This may explain why you have been so fatigued and had hair and skin changes. Total Time Total Time Spent Total Time Spent (In Minutes): 40 min Coding Level of Care Code 95092 INP/OBS DISCH >30 MIN Diagnoses Sepsis, due to unspecified organism A41.9 Sepsis type: sepsis due to unspecified organism Hip pain, right M25.551 Hypothyroidism E03.9 Hyperglycemia R73.9 High anion gap metabolic acidosis E87.29 Hypertension I10 UTI (urinary tract infection) N30.01 Hematuria presence: with hematuria Urinary tract infection type: acute cystitis Elevated LFTs R79.89 Anxiety and depression F41.9; F32.9
--- OUTSIDE RECORDS SUMMARY | 2023-01-31 11:00 | External Medical Summary | Summary of Care ---
Author Name Unknown Organization [facility] Address [address] [facility] [address] Phone [phone] Care Team Providers Care Domestic Violence Advocate Name Role Phone Ashley Truong MD Primary Care Provider [phone] Reason for Visit * Reason Onset Date Comments Appointment 09/11/2022 Encounter Details Date Type Department Care Team Description 09/11/2022 Telephone Hematology/Oncology [facility] Fawad Luevano [address] [place] [address] Marino Gama MD [address] [place] [address] Appointment Allergies Active Allergy Reactions Severity Noted Date Comments Adhesive Tape Codeine Nausea/vomiting Erythromycin Nausea/vomiting Indomethacin Valacyclovir Hcl Tachycardia documented as of this encounter (statuses as of 09/11/2022) Medications Medication Sig Dispensed Refills Start Date End Date Status MetFORMIN (GLUCOPHAGE) 1000 MG Tablet Take by mouth. 0 Active losartan-hctz 100-25 mg per tab (HYZAAR) 100-25 MG per tablet Take by mouth daily. 0 08/05/2014 Active levothyroxine (LEVOXYL) 200 MCG Tablet Take by mouth. 0 08/05/2014 Active FLUoxetine HCl (PROZAC) 40 MG Capsule Take by mouth daily. 0 Active Insulin Aspart 100 UNIT/ML Subcutaneous Solution Pen-injector Inject under the skin. 0 05/19/2017 Active aspirin enteric coated 81 MG TBEC Take by mouth daily. 0 10/30/2016 Active Cyanocobalamin (VITAMIN B-12 ER) 1000 MCG TBCR Take by mouth daily. 0 02/06/2017 Active [place] 3 1000 MG CAPS Take by mouth daily. 0 10/30/2016 Active gabapentin (NEURONTIN) 100 MG Capsule Take by mouth 3 times a day. 0 Active cyclobenzaprine (FLEXERIL) 10 MG Tablet Take by mouth. 0 Active LORAzepam (ATIVAN) 0.5 MG Tablet Take 1 Tab by mouth every 6 hours as needed for Anxiety. Take 1 tab 1 hr prior to procedure, repeat 1 tab 5 min prior to procedure 5 Tab 0 10/09/2017 Active Additional Information Patient not taking.Reported on 09/11/2022 ondansetron (ZOFRAN) 8 MG TabletIndications:Billie ast carcinoma, female, right (HCC) Take 1 Tab by mouth every 8 hours as needed for Nausea. 30 Tab 3 01/13/2018 Active lidocaine-prilocaine (EMLA) 2.5-2.5 % creamIndications:[place] st carcinoma, female, right (HCC) APPLY TO SKIN OVER MEDIPORT & COVER 1HR PRIOR TO ACCESSING. 30 g 1 02/20/2018 Active Additional Information Patient not taking.Reported on 09/11/2022 magic swizzle (MAGIC MOUTHWASH) 15 mlIndications:Breast carcinoma, female, right (HCC) Swish and swallow 15 mL 4 times a day before meals and at bedtime. 300 mL 1 04/23/2018 Active Additional Information Patient not taking.Reported on 09/11/2022 Insulin Degludec 100 UNIT/ML Subcutaneous Solution Pen-injector Inject under the skin daily. 0 Active traMADol (ULTRAM) 50 MG TabletIndications:Billie ast carcinoma, female, right (HCC) Take 1 Tab by mouth every 6 hours as needed for Pain. 30 Tab 0 06/02/2018 Active Additional Information Patient not taking.Reported on 09/11/2022 HYDROcodone-acetamino phen 5-325 mg per tab 5-325 MG per tabletIndications:Billie ast carcinoma, female, right (HCC) Take 1 Tab by mouth at bedtime as needed for Pain, Breakthrough. 30 Tab 0 08/26/2018 Active oxyCODONE-acetaminoph en 5-325 mg per tab (PERCOCET) 5-325 MG per tabletIndications:Billie ast carcinoma, female, right (HCC) Take 1 Tab by mouth every 4 hours as needed for Pain, Moderate. 60 Tab 0 10/13/2018 Active Additional Information Patient not taking.Reported on 09/11/2022 Calcium Carbonate-Vitamin D 600-400 MG-UNIT per tabletIndications:Billie ast carcinoma, female, right (HCC) Take 1 Tab by mouth daily. 90 Tab 3 02/15/2019 Active Levothyroxine Sodium 25 MCG Oral Capsule (Tirosint) Take 1 Capsule by mouth daily first thing in the morning. (at least 30 min prior to breakfast or other meds) 0 Active Furosemide 20 MG Oral Tablet (LASIX) Take 20 mg by mouth 2 times a day. 0 Active Sulfamethoxazole-Trim ethoprim 800-160 MG Oral Tablet (Bactrim DS) Take 1 Tab by mouth 2 times a day. 0 10/31/2020 Active Metoprolol Succinate ER 50 MG Oral Tablet Extended Release 24 Hour (toPROL XL) Take 1 Tablet by mouth in the morning. 0 10/31/2020 Active Atorvastatin Calcium 20 MG Oral Tablet (Lipitor) Take 1 Tablet by mouth every night at bedtime. 0 Active documented as of this encounter (statuses as of 09/11/2022) Active Problems Problem Noted Date Hereditary hemochromatosis 08/07/2022 Central line clotted, initial encounter 11/25/2018 Encounter for antineoplastic chemotherap y 02/24/2018 Breast carcinoma, female, right 12/31/19 18 documented as of this encounter (statuses as of 09/11/2022) Immunizations Name Administration Dates Next Due COVID-19 mRNA, LNP-s, No Pre serve, 2-Dose Series ([employer]) 06/06/2020,05/16/2020 Covid-19, Mrna, Lnp-s, Pf, B ivalent, 30 Mcg, IM, 12 yrs and above ([employer]) 01/07/2022,01/01/2021 Seasonal Influenza Virus Vac cine, Unspecified Formulation 12/05/2021 documented as of this encounter Social History Tobacco Use Types Packs/Day Years Used Date Smoking Tobacco: Former Cigarettes Q uit: 03/24/1988 Smokeless Tobacco: Never Alcohol Use Standard Drinks/Week Comments Yes 0 (1 standard drink = 0.6 oz pur e alcohol) rarely Sex Assigned at Date Recorded Not on file Job Start Date Occupation Industry Not on file Not on file Not on file documented as of this encounter Miscellaneous Notes * Telephone Encounter - BetinaGARCÍA Springer - 09/11/2022 9:52 AM EDT Director Of Healthcare Systems-Cynthia Palomino please contact patient for an appt in regards to Hereditary hemochromatosis (HCC) (E83.110) Breast carcinoma, female, right (HCC) (C50.911) Problem/Desired Service from Cosmetology Educator: Elevated ferritin Thank you documented in this encounter Plan of Treatment Upcoming Encounters Date Type Specialty Care Team Description 02/03/2023 Laboratory Laboratory [facility], Lab Scenery [address] [place], [place] [id number] 02/06/2023 Office Visit Hematology Oncology Marizol Nunez CRNP [address] [facility] [place] [address] Health Maintenance Due Date Last Done Comments Pneumococcal Vaccine: 65+ Years (1 - PCV) 1963 Depression Screening, Annual for Pts 12 and Over 1969 HIV Screening 1972 DTaP,Tdap,and Td Vaccines (1 - Tdap) 1976 Cologuard 2002 Colonoscopy 2002 Colorectal Cancer Screening 2002 Fecal Occult Blood Test 2002 Sigmoidoscopy 2002 Zoster Vaccines (1 of 2) 2007 TSH 07/06/2023 07/05/2022, 05/09/2021 Lipid Panel 07/06/2027 07/05/2022, 04/24, 01/31/2020 DXA Scan 02/24/2029 02/24/2019 Influenza Vaccine (FLU shot) Completed , 12/05/2021, 01/11/2021, Additional history exists COVID-19 Vaccine Completed 01/07/2022, 01/2021, 01/01/2021, Additional history exists GARDASIL-HPV IMMUNIZATION SERIES Aged Out No longer eligible based on patient's age to complete this topic Hepatitis B Aged Out No longer eligi ble based on patient's age to complete this topic MENINGOCOCCAL (MENACTRA/MENVEO) Aged Out No longer eligible based on patient's age to complete this topic documented as of this encounter Medical Devices Not on filedocumented as of this encounter Care Teams Domestic Violence Advocate Relationship Specialty [place] [address] [place] [address] [place] [address] PCP - General Family Medicine 10/12/19 documented as of this encounter
--- OUTSIDE RECORDS SUMMARY | 2023-01-31 11:00 | External Medical Summary | Summary of Care ---
Author Name Unknown Organization [facility] Address [address] [place] [address] Phone [phone] Care Team Providers Care Gas System Operator Name Role Phone Ashley Truong MD Primary Care Provider [phone] Reason for Visit * Reason Comments Medical Nutrition Therapy * Evaluate & Treat - Unlimited Visits (Within 10 days (routine)) - Pending Review Specialty Diagnoses / Procedures Referred By Preethi madrigal Referred To Contact Dietitian / Nutrition Services Diagnoses Hereditary hemochromatosis (HCC) Breast carcinoma, female, right (HCC) Marino Gama MD [address] [place] [address] Referral ID Status Reason Start Date Expiration Date Visits Requested Visits Authorized [id number] Pending Review Specialty Services Required 09/11/[phone] Encounter Details Date Type Department Care Team Description 09/13/2022 Nutrition Services Nutrition, [facility] [address] [facility] [address] Cyn[facility] Santos RDN [address] [facility] [address] Hereditary hemochromatosis (HCC)*; Breast carcinoma, female, right (HCC); Type 2 diabetes mellitus with hemoglobin A1c goal of less than 7.0% (HCC) Allergies Active Allergy Reactions Severity Noted Date Comments Adhesive Tape Codeine Nausea/vomiting Erythromycin Nausea/vomiting Indomethacin Valacyclovir Hcl Tachycardia documented as of this encounter (statuses as of 09/13/2022) Medications Medication Sig Dispensed Refills Start Date [...] Take by mouth daily. 0 02/06/2017 Active [place] 3 1000 MG CAPS Take by mouth [...] 3 01/13/2018 Active lidocaine-prilocaine (EMLA) 2.5-2.5 % creamIndications:[place]ie st carcinoma, female, right (HCC) APPLY TO [...] as of this encounter (statuses as of 09/13/2022) Active Problems Problem Noted Date Hereditary hemochromatosis 08/07/2022 Central line clotted, initial encounter 11/25/2018 Encounter for antineoplastic chemotherap y 02/24/2018 Breast carcinoma, female, right 12/31/19 18 documented as of this encounter (statuses as of 09/13/2022) Immunizations Name Administration Dates Next Due COVID-19 mRNA, LNP-s, No Pre serve, 2-Dose Series ([employer]) 06/06/2020,05/16/2020 Covid-19, Mrna, Lnp-s, Pf, B ivalent, 30 Mcg, IM, 12 yrs and above ([employer]) 01/07/2022,01/01/2021 Seasonal Influenza Virus Vac cine, Unspecified Formulation 12/05/2021 documented as of this encounter Social History Tobacco Use Types Packs/Day Years Used Date Smoking Tobacco: Former Cigarettes Q uit: 03/24/1988 Smokeless Tobacco: Never Alcohol Use Standard Drinks/Week Comments Yes 0 (1 standard drink = 0.6 oz pur e alcohol) rarely Sex Assigned at Date Recorded Female 09/11/2022 2:48 PM E DT Job Start Date Occupation Industry Not on file Not on file Not on file documented as of this encounter Last Filed Vital Signs Vital Sign Reading Time Taken Comments Blood Pressure - - Pulse - - Temperature - - Respiratory Rate - - Oxygen Saturation - - Inhaled Oxygen Concentration - - Weight 102.4 kg (225 lb 12.8 oz) 09/13/2022 2:09 PM EDT Height 149.2 cm (4' 10.74") 09/13/2022 2:09 PM E DT Body Mass Index 46.01 09/13/2022 2:09 PM EDT documented in this encounter Patient Instructions * Patient Instructions* Cynthia Santos RDN - 09/13/2022 3:03 PM EDT Patient will aim for no more than 10 mg of iron daily. Review nutrition labels for iron content. Look at nutrition labels of protein supplement. Patient will add noontime meal to present meal regimen. documented in this encounter Progress Notes * Cynthia Santos RDN - 09/13/2022 2:10 PM EDT NUTRITION CONSULT - OUTPATIENT [facility] Name: Kassi Latif Location: [facility] Date: 09/13/2022 Time: 2:10 PM Patient was identified by name and date. Patient was seen [id number] in the clinic. Reason for Referral: elevated ferritin level, breast cancer, hemochromatosis NUTRITION ASSESSMENT: Client History Patient is a 67 year old female being seen for above issues. She lives alone. States she had a bilateral mastectomy in November of 2017. Her radiation and chemo treatments ended in 2018. She is currently in process of having gastric bypass in the future. She admits to a recent illness with a decreased appetite in February 2022. Support System: Daughter who lives down the road, and daughter who lives an hour away Barriers To Learning: None Special Education Needs: None Food/Nutrition-Related History Describes typical diet history/24 hr recall Breakfast: 8-9 AM Protein drink and yogurt, diet iced tea Snacks: None Lunch: None Snacks: None Dinner: 2:30-5 PM baked cod, small amount of mashed potatoes, green beans or carrots or chili or [place]orean wedding soup or beef barley soup or pot roast, mashed potatoes, green beans or carrots or stewtomatoes, water or diet iced tea or diet pepsi Snacks: Watermelon or cookie Drinks: Water, diet pepsi, diet iced tea-80 ounces daily per pt, 1 pint of 2% or 1% milk Restaurant meals: 2-3 times a week Alcohol: None Tobacco Use: No, quit 34 years ago Diet Recall/Food Logs Indicate: AREAS FOR IMPROVEMENT: High calorie, high fat and/or high sugar selections Poor meal distribution Inadequate fruit and vegetable intake POSITIVE: Portion control Uses calorie free beverages Adequate fluid intake Food and Nutrient Intake and other pertinent information: Patient reports usually eating only 1 meal daily. Notes a history of gastroparesis. States she doesn't get very hungry. Is trying too watch portion sizes of food in preparation for gastric bypass surgery. Notes lymphedema on right side. Notes a recent issue with elevated blood pressure but states now it is better controlled. Admits to sleeping "not great". Food allergies and/or food intolerances: None Pertinent Medications (Current): Current Outpatient Medications Medication Sig Dispense Refill MetFORMIN (GLUCOPHAGE) 1000 MG Tablet Take by mouth. losartan-hctz 100-25 mg per tab (HYZAAR) 100-25 MG per tablet Take by mouth daily. levothyroxine (LEVOXYL) 200 MCG Tablet Take by mouth. FLUoxetine HCl (PROZAC) 40 MG Capsule Take by mouth daily. Insulin Aspart 100 UNIT/ML Subcutaneous Solution Pen-injector Inject under the skin. aspirin enteric coated 81 MG TBEC Take by mouth daily. Cyanocobalamin (VITAMIN B-12 ER) 1000 MCG TBCR Take by mouth daily. Ex[place] 3 1000 MG CAPS Take by mouth daily. gabapentin (NEURONTIN) 100 MG Capsule Take by mouth 3 times a day. cyclobenzaprine (FLEXERIL) 10 MG Tablet Take by mouth. LORAzepam (ATIVAN) 0.5 MG Tablet Take 1 Tab by mouth every 6 hours as needed for Anxiety. Take 1 tab 1 hr prior to procedure, repeat 1 tab 5 min prior to procedure (Patient not taking: Reported on 09/11/2022) 5 Tab 0 ondansetron (ZOFRAN) 8 MG Tablet Take 1 Tab by mouth every 8 hours as needed for Nausea. 30 Tab3 lidocaine-prilocaine (EMLA) 2.5-2.5 % cream APPLY TO SKIN OVER MEDIPORT & COVER 1HR PRIOR TO ACCESSING. (Patient not taking: Reported on 09/11/2022) 30 g 1 magic swizzle (MAGIC MOUTHWASH) 15 ml Swish and swallow 15 mL 4 times a day before meals and atbedtime. (Patient not taking: Reported on 09/11/2022) 300 mL 1 Insulin Degludec 100 UNIT/ML Subcutaneous Solution Pen-injector Inject under the skin daily. traMADol (ULTRAM) 50 MG Tablet Take 1 Tab by mouth every 6 hours as needed for Pain. (Patient not taking: Reported on 09/11/2022) 30 Tab 0 HYDROcodone-acetaminophen 5-325 mg per tab 5-325 MG per tablet Take 1 Tab by mouth at bedtime as needed for Pain, Breakthrough. 30 Tab 0 oxyCODONE-acetaminophen 5-325 mg per tab (PERCOCET) 5-325 MG per tablet Take 1 Tab by mouth every 4 hours as needed for Pain, Moderate. (Patient not taking: Reported on 09/11/2022) 60 Tab 0 Calcium Carbonate-Vitamin D 600-400 MG-UNIT per tablet Take 1 Tab by mouth daily. 90 Tab 3 Levothyroxine Sodium 25 MCG Oral Capsule (Tirosint) Take 1 Capsule by mouth daily first thing in the morning. (at least 30 min prior to breakfast or other meds) Furosemide 20 MG Oral Tablet (LASIX) Take 20 mg by mouth 2 times a day. Sulfamethoxazole-Trimethoprim 800-160 MG Oral Tablet (Bactrim DS) Take 1 Tab by mouth 2 times aday. (Patient not taking: Reported on 09/11/2022) Metoprolol Succinate ER 50 MG Oral Tablet Extended Release 24 Hour (toPROL XL) Take 1 Tablet bymouth in the morning. Atorvastatin Calcium 20 MG Oral Tablet (Lipitor) Take 1 Tablet by mouth every night at bedtime. No current facility-administered medications for this visit. Patient is no longer taking bactrim or magic swizzle. Supplements: Calcium +D, Ex[place]-3, Vitamin B12 and tumeric. Has 1-2 protein drinks (Ensure or Equateor Premier) daily Prior Nutrition Counseling: Other Dietitian from [facility]. Physical Activity: takes out dog. Limited due to problems with right hip, right arm, and back Anthropometric Measurements Ht 1.492 m (4' 10.74") | Wt 102.4 kg (225 lb 12.8 oz) | BMI 46.01 kg/m | BSA 2.06 m Wt Readings from Last 5 Encounters: 09/13/22 102.4 kg (225 lb 12.8 oz) 09/11/22 101.9 kg (224 lb 9.6 oz) 08/01/22 102.6 kg (226 lb 1.6 oz) 01/29/22 114.7 kg (252 lb 12.8 oz) 05/09/21 120.5 kg (265 lb 11.2 oz) Weight Change: decreased by 27 pounds in the past 7 months, some intentional BMI: BMI Readings from Last 1 Encounters: 09/13/22 46.01 kg/m Nutrition-Focused Physical Findings Overall appearance: overweight/obese Biochemical Data, Medical Tests, and Procedures Latest Reference Range & Units 09/09/22 11:38 Iron 33 - 151 ug/dL 79 Iron Binding Capacity 250 - 425 ug/dL 225 (L) Transferrin Saturation Percent 15 - 55 % 35 Ferritin 13 - 150 ng/mL 1,355 (H) (L): Data is abnormally low (H): Data is abnormally high Latest Reference Range & Units 07/05/22 00:00 HEMOGLOBIN, [id number] LAB 4.5 - 5.6 % 9.0 ! (E) !: Data is abnormal (E): External lab result Latest Reference Range & Units 07/05/22 00:00 TRIGLYCERIDES-OUTSIDE LAB 0 - 150 MG/DL 335 ! (E) CHOL/HDL RATIO-OUTSIDE LAB 4.9 (E) CHOLESTEROL-Outside Lab 0 - 200 MG/DL 316 ! (E) HDL-OUTSIDE LAB 64 (E) LDL (CALCULATED)-OUTSIDE LAB MG/DL 185 (E) !: Data is abnormal (E): External lab result Above levels reviewed. Patient aware of elevated ferritin level. NUTRITION DIAGNOSIS Altered nutrition-related laboratory values related to hemochromatosis as evidenced by elevated ferritin level, need for low iron diet. Obesity related to High calorie, high fat and/or high sugar selections, Poor meal distribution, Inadequate fruit and vegetable intake as evidenced by Reported diet and/or activity recall, Body mass index is 46.01 kg/m. Altered GI function related to gastroparesis as evidenced by medical diagnosis, need for low-fiber,low-fat diet. NUTRITION INTERVENTION: NUTRITION EDUCATION Initial/brief nutrition education NUTRITION COUNSELING Strategies Good Nutrition: Food Label Facts-page 1 Other Education Material: Academy [employer] Nutrition Care Manual Handout -Gastroparesis Nutrition Therapy, Iron Content of Foods Nutrition Prescription: Diet: Consistent Carbohydrate Low Iron Low Fiber Low Fat Small, frequent meals Daily Calorie Needs: 1500 Kcals Daily Protein Needs: 65-70 Grams protein Goals: Patient will aim for no more than 10 mg of iron daily. Review nutrition labels for iron content. Look at nutrition labels of protein supplement. Patient will add noontime meal to present meal regimen. Dietitian Action: Encouraged patient to limit iron content to 10 mg daily. Reviewed foods high in iron to avoid and those allowed or to use in moderation. Discussed what to look for on the nutrition label in regards to iron intake. Encouraged her to eat smaller, frequent meals and avoid high-fiber,high-fat foods to help with symptoms of gastroparesis. Encouraged her to review nutrition labels ofprotein supplements she is drinking for iron content. Recommendations to Ordering Provider: Continue current plan of nutrition care. NUTRITION MONITORING AND EVALUATION: The following will be monitored and evaluated at the next visit: Monitor weight. Monitor goals and progress. Plan:Patient scheduled to return in 5 months; dietitian phone # given for future reference. 60 minutes Medical Nutrition Therapy Time In: 1408 (09/13/22 1710) Time Out: 1505 (09/13/22 1710) STEPHANIE Roy JASON HAMILTON documented in this encounter Plan of Treatment Upcoming Encounters Date Type Specialty Care Team Description 02/03/2023 Laboratory Laboratory [place], Lab Scenery [address] [place] [address] 02/06/2023 Office Visit Hematology Oncology Marizol Nunez CRNP [address] [facility] [place] [address] Scheduled Referrals Name Type Priority Associated Diagnoses Orde r Schedule NUTRITION-CLINICAL DIETITIAN REFERRAL OP Referral Within 10 days (routine) Hereditary hemochromatosis (HCC) Breast carcinoma, female, right (HCC) Ordered: 09/11/2022 Health Maintenance Due Date Last Done Comments [...] Not on filedocumented as of this encounter Visit Diagnoses Diagnosis Hereditary hemochromatosis (HCC)- Primary Hereditary hemochromatosis Breast carcinoma, female, right (HCC) Type 2 diabetes mellitus with hemoglobin A1c goal of less than 7.0% (HCC) documented in this encounter Care Teams Gas System Operator Relationship Specialty Start Date End Date Ashley Truong [facility] [address] [facility] [place] [address] PCP - General Family Medicine 10/12/19 documented as of this encounter
--- OUTSIDE RECORDS SUMMARY | 2023-01-31 11:00 | External Medical Summary ---
Author Name Unknown Address Unknown Organization [id number]:[facility] - [address] [facility] [address] Laboratory Report Ordering Provider Test Date Status LIAOYULISSAMICHAEL 09/09/2022 11:38:18 Final Observation Date Value Abnormality Reference (Units ) Status Ferritin 09/09/2022 11:38:18 1355 Above high normal 13 -150 (ng/mL) Final Postmenopausal women have hi gher ferritin levels than pre-menopausal women. The above reference interval is based on pre-menopausal women. Performing Location [facility] [address] [facility] [address]
--- OUTSIDE RECORDS SUMMARY | 2023-01-31 11:00 | External Medical Summary | Summary of Care ---
Author Name Unknown Organization [facility] Address [address] [place] [address] Phone [phone] Care Team Providers Care Tire Room Supervisor Name Role Phone Ashley Truong MD Primary Care Provider [phone] Reason for Visit * Reason Comments Outpatient Testing Encounter Details Date Type Department Care Team Description 09/09/2022 Laboratory Laboratory [address] [facility] [address] [place] [address] [facility] [address] [place] [id number] Hereditary hemochromatosis (HCC) Allergies Active Allergy Reactions Severity Noted Date Comments Adhesive Tape Codeine Nausea/vomiting Erythromycin Nausea/vomiting Indomethacin Valacyclovir Hcl Tachycardia documented as of this encounter (statuses as of 09/09/2022) Medications Medication Sig Dispensed Refills Start Date End Date Status MetFORMIN (GLUCOPHAGE) 1000 MG Tablet Take by mouth. 0 Active losartan-hctz 100-25 mg per tab (HYZAAR) 100-25 MG per tablet Take by mouth daily. 0 08/05/2014 Active levothyroxine (LEVOXYL) 200 MCG Tablet Take by mouth. 0 08/05/2014 Active FLUoxetine HCl (PROZAC) 40 MG Capsule Take by mouth daily. 0 Active insulin aspart (NOVOLOG FLEXPEN) 100 UNIT/ML SOPN Inject under the skin. 0 05/19/2017 Active aspirin enteric coated 81 MG TBEC Take by mouth daily. 0 10/30/2016 Active Cyanocobalamin (VITAMIN B-12 ER) 1000 MCG TBCR Take by mouth daily. 0 02/06/2017 Active [place] 3 1000 MG CAPS Take by mouth [...] to procedure 5 Tab 0 10/09/2017 Active ondansetron (ZOFRAN) 8 MG TabletIndications:Billie ast carcinoma, female, right (HCC) Take 1 Tab by mouth every 8 hours as needed for Nausea. 30 Tab 3 01/13/2018 Active lidocaine-prilocaine (EMLA) 2.5-2.5 % creamIndications:Dix st carcinoma, female, right (HCC) APPLY TO SKIN OVER MEDIPORT & COVER 1HR PRIOR TO ACCESSING. 30 g 1 02/20/2018 Active magic swizzle (MAGIC MOUTHWASH) 15 mlIndications:Breast carcinoma, female, right (HCC) Swish and swallow 15 mL 4 times a day before meals and at bedtime. 300 mL 1 04/23/2018 Active Insulin Degludec (TRESIBA FLEXTOUCH) 100 UNIT/ML SOPN Inject under the skin daily. 0 Active traMADol (ULTRAM) 50 MG TabletIndications:Billie ast carcinoma, female, right (HCC) Take 1 Tab by mouth every 6 hours as needed for Pain. 30 Tab 0 06/02/2018 Active HYDROcodone-acetamino phen 5-325 mg per tab 5-325 [...] Pain, Moderate. 60 Tab 0 10/13/2018 Active Calcium Carbonate-Vitamin D 600-400 MG-UNIT per tabletIndications:Billie ast carcinoma, female, right (HCC) Take 1 Tab by mouth daily. 90 Tab 3 02/15/2019 Active Levothyroxine Sodium 25 MCG Oral Capsule (Tirosint) Take 25 mcg by mouth daily first thing in the [...] Extended Release 24 Hour (toPROL XL) Take 50 mg by mouth daily. 0 10/31/2020 Active documented as of this encounter (statuses as of 09/09/2022) Active Problems Problem Noted Date Hereditary hemochromatosis 08/07/2022 Central line clotted, initial encounter 11/25/2018 Encounter for antineoplastic chemotherap y 02/24/2018 Breast carcinoma, female, right 12/31/19 18 documented as of this encounter (statuses as of 09/09/2022) Immunizations Name Administration Dates Next Due COVID-19 mRNA, LNP-s, No Pre serve, 2-Dose Series ([employer]) 06/06/2020,05/16/2020 Covid-19, Mrna, Lnp-s, Pf, B ivalent, 30 Mcg, IM, 12 yrs and above ([employer]) 01/07/2022,01/01/2021 Seasonal Influenza Virus Vac cine, Unspecified [...] on file documented as of this encounter Plan of Treatment Upcoming Encounters Date Type Specialty Care Team Description 09/11/2022 Office Visit Hematology Oncology LanetteMarino [facility] [address] [facility] [address] 02/03/2023 Laboratory Laboratory [facility]hell Luevano [facility] [address] 02/06/2023 Office Visit Hematology Oncology Marizol Nunez CRNP [address] [place] [id number] Pending Results Name Type Priority Associated Diagnoses Date /Time CBC WITH WBC DIFFERENTIAL Lab STAT Hereditary hemochromatosis (HCC) 09/09/2022 11:38 AM EDT FERRITIN Lab STAT Hereditary hemochromatosis (HCC) 09/09/2022 11:38 AM EDT IRON SCREEN, INCLUDING TIBC Lab STAT Hereditary hemochromatosis (HCC) 09/09/2022 11:38 AM EDT CBC Lab STAT Hereditary hemochromatosis (HCC) 09/09/2022 11:38 AM EDT DIFFERENTIAL, AUTOMATED Lab STAT Hereditary hemochromatosis (HCC) 09/09/2022 11:38 AM EDT Health Maintenance Due Date Last Done Comments [...] this encounter Visit Diagnoses Diagnosis Hereditary hemochromatosis (HCC) Hereditary hemochromatosis documented in this encounter Care Teams Tire Room Supervisor Relationship Specialty Start Date End Date Ashley Truong MD [address] [place], [place] [address] [address] PCP - General Family Medicine 10/12/19 documented as of this encounter
--- OUTSIDE RECORDS SUMMARY | 2023-01-31 11:00 | External Medical Summary ---
Author Name Unknown Address Unknown Organization K09:[facility] [place] [address] Laboratory Report Ordering Provider Test Date Status MICHAEL LIAO 09/09/2022 11:38:18 Final Observation Date Value Abnormality Reference (Units ) Status SYNC LEUKOCYTES IN BLOOD BY AUTOMATED COUNT 09/09/2022 11:38:18 8.86 4.00-10.80 (K/uL) Final Segs 09/09/2022 11:38:18 66.6 40.0-75.0 (%) Final Lymphs % 09/09/2022 11:38:18 21.3 18.0-42.0 (%) Final Monos 09/09/2022 11:38:18 9.1 1.0-11.0 (%) Final Eosinophils 09/09/2022 11:38:18 2.1 0.0-6.0 (%) Final Basos 09/09/2022 11:38:18 0.9 0.0-2.0 (%) Final Absolute Segs 09/09/2022 11:38:18 5.89 1.80-7.70 (K/uL) Final Lymphs, absolute 09/09/2022 11:38:18 1.89 1.00-4.80 (K/ul) Final Monos, Abs 09/09/2022 11:38:18 0.81 0.00-1.10 (K/uL) Final Eos, Abs 09/09/2022 11:38:18 0.19 0.00-0.70 (K/uL) Final Basos, Abs 09/09/2022 11:38:18 0.08 0.00-0.20 (K/uL) Final Performing Location [facility] [place] [address]
--- OUTSIDE RECORDS SUMMARY | 2023-01-31 11:00 | External Medical Summary ---
Author Name Unknown Address Unknown Organization K09:[facility] [place] [address] Laboratory Report Ordering Provider Test Date Status MICHAEL LIAO 09/09/2022 11:38:18 Final Observation Date Value Abnormality Reference (Units ) Status WBC, Total 09/09/2022 11:38:18 8.86 4.00-10.8 0 (K/uL) Final RBC 09/09/2022 11:38:18 3.87 3.85-5.15 (M/uL) Final Hemoglobin 09/09/2022 11:38:18 12.9 12.0-15.3 (g/dL) Final HCT 09/09/2022 11:38:18 37.7 36.0-45.2 (%) Final MCV 09/09/2022 11:38:18 97.4 81.5-97.5 (fL) Final MCH 09/09/2022 11:38:18 33.3 27.0-34.0 (pg) Final MCHC 09/09/2022 11:38:18 34.2 32.0-36.0 (g/dL) Final RDW 09/09/2022 11:38:18 12.8 11.5-15.5 (%) Final Platelets 09/09/2022 11:38:18 239 140-400 (K /uL) Final MPV 09/09/2022 11:38:18 10.4 6.6-11.1 ( fL) Final Performing Location [facility] [place] [address]
--- OUTSIDE RECORDS SUMMARY | 2023-01-31 11:00 | External Medical Summary | Summary of Care ---
Author Name Unknown Organization [facility] Address [address] [place] [address] Phone [phone] Care Team Providers Care Belt Lacer Name Role Phone Ashley Truong MD Primary Care Provider [phone] Reason for Referral * Evaluate & Treat - Unlimited Visits (Within 10 days (routine)) - Pending Review Specialty Diagnoses / Procedures Referred By Preethi madrigal Referred To Contact Dietitian / Nutrition Services Diagnoses Hereditary hemochromatosis (HCC) Breast carcinoma, female, right (HCC) Marino Gama MD [address] [place] [address] Referral ID Status Reason Start Date Expiration Date Visits Requested Visits Authorized [id number] Pending Review Specialty Services Required 09/11/[phone] Question Answer Referral Priority Within 10 days (routine) What condition is the patient being seen for? All other conditions Other: Other: Use Comment Box Comments Elevated ferritin Reason for Visit * Reason Comments Follow Up Follow up Encounter Details Date Type Department Care Team Description 09/11/2022 Office Visit Hematology/Oncology [place] F[facility]ad [place] [address] [place] [address] Marino Gama MD [address] [place] [address] Hereditary hemochromatosis (HCC)*; Breast carcinoma, female, right (HCC) Allergies Active Allergy Reactions Severity Noted [...] Take by mouth daily. 0 02/06/2017 Active Coin 3 1000 MG CAPS Take by mouth [...] mRNA, LNP-s, No Pre serve, 2-Dose Series ([email or web address]) 06/06/2020,05/16/2020 Covid-19, Mrna, Lnp-s, Pf, B ivalent, 30 Mcg, IM, 12 yrs and above ([email or web address]) 01/07/2022,01/01/2021 Seasonal Influenza Virus Vac cine, Unspecified Formulation 12/05/2021 documented as of this encounter Social History Tobacco Use Types Packs/Day Years Used Date Smoking Tobacco: Former Cigarettes Q uit: 03/24/1988 Smokeless Tobacco: Never Tobacco Cessation:Counseling Given: Not Answered Alcohol Use Standard Drinks/Week Comments Yes 0 (1 standard drink = 0.6 oz pur e alcohol) rarely Sex Assigned at Date Recorded Not on file Job Start Date Occupation Industry Not on file Not on file Not on file documented as of this encounter Last Filed Vital Signs Vital Sign Reading Time Taken Comments Blood Pressure 128/82 09/11/2022 9:26 AM EDT Pulse 90 09/11/2022 9:26 AM EDT Temperature 36.4 C (97.6 F) 09/11/2022 9:26 AM ED T Respiratory Rate 16 09/11/2022 9:26 AM EDT Oxygen Saturation 98% 09/11/2022 9:26 AM EDT Inhaled Oxygen Concentration - - Weight 101.9 kg (224 lb 9.6 oz) 09/11/2022 9:26 AM EDT Height - - Body Mass Index 45.75 10/27/2018 1:16 PM EDT documented in this encounter Progress Notes * Marino Gama MD - 09/11/2022 9:31 AM EDT Outpatient Consult Note Data Source: Patient, Epic record. Data Source: Patient, Epic record. 09/11/2022 9:31 AM Kassi Latif [id number] 67 year old Patient Encounter: HEMATOLOGY/ONCOLOGY [facility] Cancer Diagnosis: - Right breast cancer-grade invasive lobular cancer - ER/WV positive. Suz6eto negative. 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 Current Treatment: Observation. She refused to continue hormone treatment. For hemochromatosis - there is issues with IV access for phlebotomy Previous Treatment: -She receive AC followed by Taxol. Received total of 8 doses of Taxol and then was discontinuedbecause of the neurotoxicity despite the dose reduction. Last chemotherapy was on 07/07/2018. -radiation therapy because of positive margin -she was treated with adjuvant hormone therapy including letrozole and Arimidex but it was discontinued because of the side effects and poor tolerance Oncologic History : 66-year-old female found on self-examination lump in the right axillary area. She had imaging studies done which showed 2 small irregular masses in the right axillary area. She had a biopsy done inJ2017. The result of the biopsy was as follows: Right axilla superior palpable: intermediate grade invasive lobular cancer - ER/WV positive. Okw1rxv negative. LCIS is also present. No LVI. No lymph node tissue identified. Right axilla inferior palpable: intermediate grade invasive lobular cancer - ER/WV positive. Qwy4kad negative. No insitu disease. No LVI. No lymph node tissue identified. Right upper posterior breast calcifications: LCIS. She subsequently underwent a bilateral mastectomy by Dr. Giles at [facility] on 15 December 2017. Pathology was as follow: Marathon lymph node was 1 and non sentinel lymph nodes were 6 and they all were negative for metastatic disease there were 2 focus of the tumor. The size of one tumorwas 1.2 cm and additional dimension was 1 x 0.8 cm and the other tumor size was 1.5 cm and additional dimension was 1.2 x 0.8 cm.Histopathology was consistent with invasive lobular carcinoma in both tumors with overall grade 2/3.Tumor extended to the inked margin of the excision FINAL DIAGNOSIS A. SENTINEL LYMPH NODE, RIGHT AXILLA, EXCISION: BENIGN LYMPH NODE WITH NO EVIDENCE OF METASTATIC CARCINOMA ON ROUTINE STAINS OR BY IMMUNOHISTOCHEMISTRY TO CYTOKERATIN (0/1). B. BREAST, RIGHT, TOTAL MASTECTOMY: 1. LOBULAR CARCINOMA IN SITU. 2. CHANGES CONSISTENT WITH PREVIOUS BIOPSY SITE. 3. NEGATIVE FOR INVASIVE CARCINOMA. 4. FIBROCYSTIC CHANGES. 5. EXAMINED MARGINS FREE OF NEOPLASM. C. BREAST, LEFT, TOTAL MASTECTOMY: 1. BENIGN BREAST TISSUE. 2. NEGATIVE FOR IN SITU AND INVASIVE CARCINOMA. D. RIGHT AXILLA, POSSIBLE MAMMARY TISSUE, EXCISION: 1. TWO SEPARATE INFILTRATING LOBULAR CARCINOMAS, GRADE 2/3. SEE COMMENT. 2. ONE TUMOR EXTENDS TO THE INKED MARGIN OF EXCISION. 3. LOBULAR CARCINOMA IN SITU. 4. CHANGES CONSISTENT WITH PREVIOUS BIOPSY SITE. 5. SIX BENIGN LYMPH NODES NEGATIVE FOR METASTATIC CARCINOMA (0/6). E. SKIN, SUSPICIOUS AREA OF RIGHT AXILLA, EXCISION: BENIGN SKIN. NEGATIVE FOR MALIGNANCY. ROCEDURE: Total mastectomy. LATERALITY: Right. LYMPH NODE SAMPLING: SENTINEL LYMPH NODE: 1. NONSENTINEL LYMPH NODE: 6. TUMOR SIZE: WING CLIP TUMOR: GREATEST DIMENSION: 1.2 cm. ADDITIONAL DIMENSIONS: 1.0 x 0.8 cm. RIBBON CLIP TUMOR: GREATEST DIMENSION: 1.5 cm. ADDITIONAL DIMENSIONS: 1.2 X 0.8 cm. HISTOLOGIC TYPE: Invasive lobular carcinoma (both tumors) HISTOLOGIC GRADE (both tumors identical): GLANDULAR/TUBULAR DIFFERENTIATION: 3 NUCLEAR PLEOMORPHISM: 2. MITOTIC RATE: 1. OVERALL GRADE: 2/3 ([place] score 6/9). TUMOR FOCALITY: Two separate primary tumors. DUCTAL CARCINOMA (DCIS): Not identified. LYMPH VASCULAR SPACE INVASION: Not identified. PERINEURAL INVASION: Not identified. MARGINS: WING CLIP TUMOR: Positive for invasive carcinoma. SPECIFY MARGIN: Cannot be determined. RIBBON CLIP TUMOR: Uninvolved by invasive carcinoma. DISTANCE FROM CLOSEST MARGIN: Less than 0.1 cm. SPECIFIED MARGIN: Cannot be determined. LYMPH NODES: TOTAL NUMBER OF LYMPH NODES EXAMINED (Marathon and nonsentinel): 7. NUMBER OF LYMPH NODES INVOLVED BY CARCINOMA: 0. TREATMENT EFFECT: No known presurgical treatment. PATHOLOGIC STAGE: pT1c(m)N(sn)0(i-). ESTROGEN RECEPTOR: Positive on previous biopsy. PROGESTERONE RECEPTOR: Positive on previous biopsy. HER2/JONNATHAN: Negative on previous biopsy. Patient has history of diabetes and hypertension. She also has a history significant for the backproblem and underwent back surgery few years ago. Interval History: Patient following with bariatric medicine at [facility]. Had blood work done for them showing a significantly elevated ferritin level and increased LFTs. Had abdominal ultrasound showing diffuse fatty liver disease. Taking vitamin b12 supplement. Denies taking an iron supplement. LABS/IMAGING: Results for orders placed or performed in visit on 09/09/22 FERRITIN Result Value Ref Range Ferritin 1,355 (H) 13 - 150 ng/mL IRON SCREEN, INCLUDING TIBC Result Value Ref Range Iron 79 33 - 151 ug/dL Iron Binding Capacity 225 (L) 250 - 425 ug/dL Transferrin Saturation Percent 35 15 - 55 % CBC Result Value Ref Range WBC 8.86 4.00 - 10.80 K/uL RBC 3.87 3.85 - 5.15 M/uL HGB 12.9 12.0 - 15.3 g/dL HCT 37.7 36.0 - 45.2 % MCV 97.4 81.5 - 97.5 fL MCH 33.3 27.0 - 34.0 pg MCHC 34.2 32.0 - 36.0 g/dL RDW 12.8 11.5 - 15.5 % PLT 239 140 - 400 K/uL MPV 10.4 6.6 - 11.1 fL DIFFERENTIAL, AUTOMATED Result Value Ref Range WBC 8.86 4.00 - 10.80 K/uL Neutrophils % 66.6 40.0 - 75.0 % Lymphocytes % 21.3 18.0 - 42.0 % Monocytes % 9.1 1.0 - 11.0 % Eosinophils % 2.1 0.0 - 6.0 % Basophils % 0.9 0.0 - 2.0 % Absolute Neutrophils 5.89 1.80 - 7.70 K/uL Absolute Lymphocytes 1.89 1.00 - 4.80 K/ul Absolute Monocytes 0.81 0.00 - 1.10 K/uL Absolute Eosinophils 0.19 0.00 - 0.70 K/uL Absolute Basophils 0.08 0.00 - 0.20 K/uL HFE Result The heterozygous HFE H63D mutation was detected.Abnormal REVIEW OF SYSTEMS: General: No Fever, chills, night sweats HEENT: No change in visual acuity, blurred or double vision. No epistaxis, facial pain, nasal discharge or change in hearing. Denies dysphagia, no muscosal ulceration, or sores noted. Cardiovascular: No chest pain, BEJARANO, or palpitations Respiratory: No shortness of breath, cough, hemoptysis, or pleuritic chest pain Gastrointestinal: No abdominal pain, nausea, vomiting, diarrhea, rectal pain or bleeding Genitourinary: Denies Hematuria or dysuria Musculoskeletal: No bone pain Skin: No skin rash or lesions noted Psychiatric: No vegetative signs of depression Endocrine: No symptoms of hypothyroidism or hyperglycemia Hematologic: No bleeding or lymph nodes noted As mentioned above, all of the systems were reviewed in full and are unremarkable. Past Medical History: Diagnosis Date Diabetes (HCC) hhyprertension Hypertension Hypothyroid Venous (peripheral) insufficiency lower extremities Current Outpatient Medications Medication Sig Dispense Refill [...] 1000 MCG TBCR Take by mouth daily. Coin 3 1000 MG CAPS Take by mouth daily. gabapentin (NEURONTIN) 100 MG Capsule Take by mouth 3 times a day. cyclobenzaprine (FLEXERIL) 10 MG Tablet Take by mouth. Insulin Degludec 100 UNIT/ML Subcutaneous Solution Pen-injector Inject under the skin daily. HYDROcodone-acetaminophen 5-325 mg per tab 5-325 MG per tablet Take 1 Tab by mouth at bedtime as needed for Pain, Breakthrough. 30 Tab 0 Calcium Carbonate-Vitamin D 600-400 MG-UNIT per tablet Take 1 Tab by mouth daily. 90 Tab 3 Levothyroxine Sodium 25 MCG Oral Capsule (Tirosint) Take 1 Capsule by mouth daily first thing in the morning. (at least 30 min prior to breakfast or other meds) Metoprolol Succinate ER 50 MG Oral Tablet Extended Release 24 Hour (toPROL XL) Take 1 Tablet bymouth in the morning. Atorvastatin Calcium 20 MG Oral Tablet (Lipitor) Take 1 Tablet by mouth every night at bedtime. LORAzepam (ATIVAN) 0.5 MG Tablet Take 1 [...] taking: Reported on 09/11/2022) 300 mL 1 traMADol (ULTRAM) 50 MG Tablet Take 1 Tab by mouth every 6 hours as needed for Pain. (Patient not taking: Reported on 09/11/2022) 30 Tab 0 oxyCODONE-acetaminophen 5-325 mg per tab (PERCOCET) 5-325 MG per tablet Take 1 Tab by mouth every 4 hours as needed for Pain, Moderate. (Patient not taking: Reported on 09/11/2022) 60 Tab 0 Furosemide 20 MG Oral Tablet (LASIX) Take 20 mg by mouth 2 times a day. Sulfamethoxazole-Trimethoprim 800-160 MG Oral Tablet (Bactrim DS) Take 1 Tab by mouth 2 times aday. (Patient not taking: Reported on 09/11/2022) No current facility-administered medications for this visit. Social History Tobacco Use Smoking status: Former Types: Cigarettes Quit date: 03/24/1988 Years since quittin.4 Smokeless tobacco: Never Substance Use Topics Alcohol use: Yes Comment: rarely Drug use: Yes Types: Marijuana Comment: Pt states vaporized medical marijuana Review of patient's allergies indicates: Allergen Reactions Adhesive Tape Codeine Nausea/vomiting Erythromycin Nausea/vomiting Indomethacin Valtrex [Valacyclovir Hcl] Tachycardia PHYSICAL EXAMINATION: General Appearance: Healthy appearing patient in no acute distress BP 128/82 (BP Site: Left Arm, BP Position: Sitting, BP Cuff Size: Large) | Pulse 90 | Temp 36.4 C(97.6 F) (Oral) | Resp 16 | Wt 101.9 kg (224 lb 9.6 oz) | SpO2 98% | BMI 45.75 kg/m | BSA 2.06 m Vitals reviewed. HEENT: No oral or pharyngeal masses, ulceration or thrush noted, no sinus tenderness. Neck is supple with no thyromegaly or JVD noted. Lymph Nodes: No lymphadenopathy noted in the occipital, pre and post auricular, cervical, supra andinfraclavicular, axillary, epitrochlear, inguinal, and popliteal region. Lungs/Thorax: Clear to auscultation, no accessory muscles of respiration being used. Heart: Regular rate and rhythm, normal S1, S2 Abdomen: Soft, nontender, bowel sounds present, no appreciable hepatosplenomegaly, no palpable masses Extremeties: Good pulses bilaterally, bilateral lower extremity edema Skin: Normal skin tone with no rash, petechiae, ecchymosis noted. Musculoskeletal: No pain on palpation over bony prominence, no edema, no evidence of gout, no jointor bony deformity ASSESSMENT: 67-year-old female with history of right breast cancer underwent bilateral mastectomy. Histopathology was consistent with invasive lobular carcinoma with 2 different focus of disease. She was treated with 4 cycles of AC followed by 8 weekly doses of Taxol. Further chemotherapy wasdiscontinued because of the side effects and toxicity and neuropathy.She also received radiation therapy because of the positive margin. Post radiation she was treated with adjuvant hormone treatment but because of the toxicity she decided against continuing it andnow currently she is under follow-up. During the workup for bariatric surgery, she was found to have elevated ferritin level. Further workup revealed heterozygous positivity for HFE gene H63D positivity. She was scheduled for phlebotomy.Unfortunately there was issues with IV access for the phlebotomy and it was not done. She return todiscuss options of further treatment. Transferrin saturation was 35%. Discussed with the patient about diagnosis reviewed all the available blood test result with her. Options of further treatment were discussed including oral iron chelating agent. Discussed with her about the benefit and the side effects of the treatment. After detailed discussion she decided to continue monitor her clinically and refer her to dietitian to help bring down the ferritin. If she continues to have elevated ferritin level more than 500, we will rediscuss the option of oral chelating agent. PLAN: As above. I will refer the patient to dietitian. She will return to clinic for follow-up in 4 months with CBC, CMP, ferritin iron screen. The patient voiced understanding of all of the above. All questions and concerns were addressed in an apparently satisfactory manner. Marino Gama MD (This note was completed using the dictation program Fluency Direct. As such, there may be misspellings, word substitutions, or other variations that should not change the essence of the clinical content of this encounter note. If there is need for further clarification, please direct questions to me.) documented in this encounter Nursing Notes * Prema Molina, DUSTLESS OPERATOR - 09/11/2022 9:31 AM EDT Patient identifed by name and birthdate Do you have any concerns about pain management for today's visit? No Living Will or Advance Directive for Health Care as noted on the problem list. [facility] is a way you can talk to your provider on line through e-mail. Would you like to sign up? I can activate it for you? ALREADY ACTIVE Filed Vitals: 09/11/22 0926 BP: 128/82 Pulse: 90 Resp: 16 Temp: 36.4 C (97.6 F) TempSrc: Oral SpO2: 98% Weight: 101.9 kg (224 lb 9.6 oz) Patient was instructed to not get up on the exam table/exam chair until directed and assisted by their provider; patient is to remain seated in the chair/ wheelchair/ exam table/ exam chair for fall prevention and safety reasons. Patient is aware to have assistance to step down off exam table/exam chair with personnel. Patient voiced full comprehension of instructions. documented in this encounter Plan of Treatment Upcoming Encounters Date Type Specialty Care Team Description 02/03/2023 Laboratory Laboratory [place], Lab Scenery [address] [place] [address] 02/06/2023 Office Visit Hematology Oncology Marizol Nunez CR[facility] [address] [facility] [place] [id number] Scheduled Orders Name Type Priority Associated Diagnoses Orde r Schedule CBC WITH WBC DIFFERENTIAL Lab Routine Hereditary hemochromatosis (HCC) Breast carcinoma, female, right (HCC) Expected: 12/23/2022, Expires: 05/14/2023 COMPREHENSIVE METABOLIC PANEL Lab Routine Hereditary hemochromatosis (HCC) Breast carcinoma, female, right (HCC) Expected: 12/23/2022, Expires: 05/14/2023 FERRITIN Lab Routine Hereditary hemochromatosis (HCC) Breast carcinoma, female, right (HCC) Expected: 12/23/2022, Expires: 05/14/2023 IRON SCREEN, INCLUDING TIBC Lab Routine Hereditary hemochromatosis (HCC) Breast carcinoma, female, right (HCC) Expected: 12/23/2022, Expires: 05/14/2023 Scheduled Referrals Name Type Priority Associated Diagnoses [...] Hereditary hemochromatosis Breast carcinoma, female, right (HCC) documented in this encounter Care Teams Belt Lacer Relationship Specialty Start Date End Date Ashley Truong MD [address] [facility] [place] [id number] PCP - General Family Medicine 10/12/19 documented as of this encounter"
--- OUTSIDE RECORDS SUMMARY | 2023-01-31 11:00 | External Medical Summary ---
Author Name Unknown Address Unknown Organization [id number]:LABORATORY [facility] - [address] [place] [address] Laboratory Report Ordering Provider Test Date Status MICHAEL LIAO 09/09/2022 11:38:18 Final Observation Date Value Abnormality Reference (Units ) Status Iron 09/09/2022 11:38:18 79 33-151 (ug/dL) Final Iron-binding capacity 09/09/2022 11:38:18 225 Below low normal 250-425 (ug/dL) Final Transferrin Sat % 09/09/2022 11:38:18 35 15-55 (%) Final Performing Location LAB[facility] - [address] [place] [address]
--- OUTSIDE RECORDS SUMMARY | 2023-01-31 11:01 | External Medical Summary | Summary of Care ---
Author Name Unknown Organization [facility] Address [address] [address] Phone [phone] Care Team Providers Care Catalytic Case Operator Name Role Phone Ashley Truong MD Primary Care Provider [phone] Reason for Visit * Reason Comments Procedure Phlebotomy Encounter Details Date Type Department Care Team Description 08/14/2022 Hem/Onc Treatment Hematology/Oncology Treatment, [place] [address] [place] [address] [place], Chair 6 Hem Onc Scenery [address] [place] [address] Allergies Active Allergy Reactions Severity Noted Date Comments Adhesive Tape Codeine Nausea/vomiting Erythromycin Nausea/vomiting Indomethacin Valacyclovir Hcl Tachycardia documented as of this encounter (statuses as of 08/14/2022) Medications Medication Sig Dispensed Refills Start Date [...] Take by mouth daily. 0 02/06/2017 Active [place] 3 1000 MG CAPS Take by mouth [...] 3 01/13/2018 Active lidocaine-prilocaine (EMLA) 2.5-2.5 % creamIndications:Ryd[place] st carcinoma, female, right (HCC) APPLY TO [...] as of this encounter (statuses as of 08/14/2022) Active Problems Problem Noted Date Hereditary hemochromatosis 08/07/2022 Central line clotted, initial encounter 11/25/2018 Encounter for antineoplastic chemotherap y 02/24/2018 Breast carcinoma, female, right 12/31/19 18 documented as of this encounter (statuses as of 08/14/2022) Immunizations Name Administration Dates Next Due COVID-19 mRNA, LNP-s, No Pre serve, 2-Dose Series ([employer]) 06/06/2020,05/16/2020 Covid-19, Mrna, Lnp-s, Pf, B ivalent Booster, 30 Mcg, IM, 12 yrs and above ([employer]) 01/07/2022,01/01/2021 Seasonal Influenza Virus Vac cine, Unspecified [...] Sign Reading Time Taken Comments Blood Pressure 139/77 08/14/2022 11:31 AM EDT Pulse 87 08/14/2022 11:31 AM EDT Temperature - - Respiratory Rate - - Oxygen Saturation - - Inhaled Oxygen Concentration - - Weight - - Height - - Body Mass Index - - documented in this encounter Nursing Notes * Danette Rizo RN - 08/14/2022 11:32 AM EDT Chair 7 Patient presents to the clinic today for phlebotomy. She was here earlier in the week and nursing was unable to obtain IV access. Patient has a R Limb restraint, so L arm is the only available arm. Patient has had poor venous access her whole life. She states that she drank "a lot" of water. When patient came to clinic today and sat in the waiting room- she sat on a bee, the bee stung her on her R posterior upper thigh, area is the size of a nickel, red, no swelling. Patient does not report having allergy to bee stings. Patient states that when she went to rub her leg, the bee then stung her on her right middle finger- there is no noticeable sting on finger. Dr Gama and director industrial nursing A Button notified of situation. Dr Gama assessed leg- no further intervention needed. This RN attempted venous access for phlebotomy twice in [facility]- first attempt- received blood return, flushed well, no issue, when attached to phlebotomy bag, unable to get blood return. Attempted flushing with Normal saline, now unable to obtain blood return. Dr Gama notified of this situation, he would like one more attempt today and then have patient re-scheduled. If we do not get patient's IV on next visit- he will discuss different options with patient. During second IV attempt today by thisRN- vein blew and unable to obtain IV access. Patient rescheduled for Friday. She understands the importance of drinking water the day before and morning of phlebotomy. Advised her to take an aspirinbefore coming to the clinic. She verbalizes understanding of plan of care. Discharged in stable condition. documented in this encounter Plan of Treatment Upcoming Encounters Date Type Specialty Care Team Description 08/20/2022 Hem/Onc Treatment Hematology Oncology [place], Chair 5 Hem Onc Scenery [address] [place] [address] 02/03/2023 Laboratory Laboratory [place], Lab Scenery [address] [place] [address] 02/06/2023 Office Visit Hematology Oncology Marizol Nunez CRNP [address] [place] [address] Health Maintenance Due Date Last Done Comments [...] filedocumented as of this encounter Care Teams Catalytic Case Operator Relationship Specialty Start Date End Date Ashley Truong MD [address] [facility] [place] [id number] PCP - General Family Medicine 10/12/19 documented as of this encounter
--- OUTSIDE RECORDS SUMMARY | 2023-01-31 11:01 | External Medical Summary ---
Author Name Unknown Address Unknown Organization K09:[facility]ATORY [place] [address] [place] [address] Laboratory Report Ordering Provider Test Date Status MICHAEL LIAO 08/01/2022 15:25:43 Final Observation Date Value Abnormality Reference (Units ) Status SYNC LEUKOCYTES IN BLOOD BY AUTOMATED COUNT 08/01/2022 15:25:43 8.15 4.00-10.80 (K/uL) Final Segs 08/01/2022 15:25:43 68.0 40.0-75.0 (%) Final Lymphs % 08/01/2022 15:25:43 23.2 18.0-42.0 (%) Final Monos 08/01/2022 15:25:43 7.9 1.0-11.0 (%) Final Eosinophils 08/01/2022 15:25:43 0.5 0.0-6.0 (%) Final Basos 08/01/2022 15:25:43 0.4 0.0-2.0 (%) Final Absolute Segs 08/01/2022 15:25:43 5.55 1.80-7.70 (K/uL) Final Lymphs, absolute 08/01/2022 15:25:43 1.89 1.00-4.80 (K/ul) Final Monos, Abs 08/01/2022 15:25:43 0.64 0.00-1.10 (K/uL) Final Eos, Abs 08/01/2022 15:25:43 0.04 0.00-0.70 (K/uL) Final Basos, Abs 08/01/2022 15:25:43 0.03 0.00-0.20 (K/uL) Final Performing Location [facility] [place] [address]
--- OUTSIDE RECORDS SUMMARY | 2023-01-31 11:01 | External Medical Summary | Summary of Care ---
Author Name Unknown Organization [facility] Address [address] [address] Phone [phone] Care Team Providers Care Bladder Blower Name Role Phone Ashley Truong MD Primary Care Provider [phone] Encounter Details Date Type Department Care Team Description 08/12/2022 Hem/Onc Treatment Hematology/Oncology Treatment, [place] [address] [place] [address] [place], Chair 7 Hem Onc Scenery [address] [place] [address] Arrived Allergies Active Allergy Reactions Severity Noted Date Comments Adhesive Tape Codeine Nausea/vomiting Erythromycin Nausea/vomiting Indomethacin Valacyclovir Hcl Tachycardia documented as of this encounter (statuses as of 08/12/2022) Medications Medication Sig Dispensed Refills Start Date [...] Take by mouth daily. 0 02/06/2017 Active [place] 3 1000 MG CAPS Take by mouth [...] as of this encounter (statuses as of 08/12/2022) Active Problems Problem Noted Date Hereditary hemochromatosis 08/07/2022 Central line clotted, initial encounter 11/25/2018 Encounter for antineoplastic chemotherap y 02/24/2018 Breast carcinoma, female, right 12/31/19 18 documented as of this encounter (statuses as of 08/12/2022) Immunizations Name Administration Dates Next Due COVID-19 mRNA, LNP-s, No Pre serve, 2-Dose Series ([email or web address]) 06/06/2020,05/16/2020 Covid-19, Mrna, Lnp-s, Pf, B ivalent Booster, 30 Mcg, IM, 12 yrs and above ([email or web address]) 01/07/2022,01/01/2021 Seasonal Influenza Virus Vac cine, Unspecified [...] Sign Reading Time Taken Comments Blood Pressure 138/83 08/12/2022 1:09 PM EDT Pulse 90 08/12/2022 1:09 PM EDT Temperature 37.2 C (98.9 F) 08/12/2022 1:09 PM ED T Respiratory Rate 18 08/12/2022 1:09 PM EDT Oxygen Saturation 97% 08/12/2022 1:09 PM EDT Inhaled Oxygen Concentration - - Weight - - Height - - Body Mass Index - - documented in this encounter Nursing Notes * Sara Schofield RN - 08/12/2022 4:30 PM EDT Chair 6, phlebotomy. Despite use of Accuvein, unable to establish peripheral access in L arm for phlebotomy. Pt has limb restriction on R arm. Pt elected to reschedule for 08/14/22; encouraged increased IV hydration prior to appt. Pt verbalized understanding. Pt discharged in stable condition. documented in this encounter Plan of Treatment Upcoming Encounters Date Type Specialty Care Team Description 08/14/2022 Hem/Onc Treatment Hematology Oncology [place], Chair 6 Hem Onc Scenery [address] [place] [address] 02/03/2023 Laboratory Laboratory [place], Lab Scenery [address] [place] [address] 02/06/2023 Office Visit Hematology Oncology Marizol Nunez CRNP [address] [place] [address] Health Maintenance Due Date Last Done Comments [...] filedocumented as of this encounter Care Teams Bladder Blower Relationship Specialty Start Date End Date Ashley Truong MD [address] [facility] [place] [id number] PCP - General Family Medicine 10/12/19 documented as of this encounter
--- OUTSIDE RECORDS SUMMARY | 2023-01-31 11:01 | External Medical Summary | Summary of Care ---
Author Name Unknown Organization [facility] Address [address] [facility] [place] [address] Phone [phone] Care Team Providers Care Contracts Analyst Name Role Phone Ashley Truong MD Primary Care Provider [phone] Reason for Visit * Reason Comments Follow Up Encounter Details Date Type Department Care Team Description 08/01/2022 Office Visit Hematology/Oncology [facility] [place] [address] [place] [address] Marizol Nunez CRNP [address] [place] [address] Elevated ferritin*; History of right breast cancer; Fatty liver disease, nonalcoholic Allergies Active Allergy Reactions Severity Noted Date Comments Adhesive Tape Codeine Nausea/vomiting Erythromycin Nausea/vomiting Indomethacin Valacyclovir Hcl Tachycardia documented as of this encounter (statuses as of 08/07/2022) Medications Medication Sig Dispensed Refills Start Date [...] Take by mouth daily. 0 02/06/2017 Active [place] 3 1000 MG CAPS Take by mouth [...] 3 01/13/2018 Active lidocaine-prilocaine (EMLA) 2.5-2.5 % creamIndications:[place] st carcinoma, female, right (HCC) APPLY TO [...] as of this encounter (statuses as of 08/07/2022) Active Problems Problem Noted Date Hereditary hemochromatosis 08/07/2022 Central line clotted, initial encounter 11/25/2018 Encounter for antineoplastic chemotherap y 02/24/2018 Breast carcinoma, female, right 12/31/19 18 documented as of this encounter (statuses as of 08/07/2022) Immunizations Name Administration Dates Next Due COVID-19 mRNA, LNP-s, No Pre serve, 2-Dose Series ([employer]) 06/06/2020,05/16/2020 Covid-19, Mrna, Lnp-s, Pf, B ivalent Booster, 30 Mcg, IM, 12 yrs and above ([employer]) 01/07/2022,01/01/2021 Seasonal Influenza Virus Vac cine, Unspecified [...] Sign Reading Time Taken Comments Blood Pressure 155/89 08/01/2022 2:31 PM EDT Pulse 105 08/01/2022 2:31 PM EDT Temperature 36.4 C (97.6 F) 08/01/2022 2:31 PM ED T Respiratory Rate 16 08/01/2022 2:31 PM EDT Oxygen Saturation 95% 08/01/2022 2:31 PM EDT Inhaled Oxygen Concentration - - Weight 102.6 kg (226 lb 1.6 oz) 08/01/2022 2:31 PM EDT Height - - Body Mass Index 46.06 10/27/2018 1:16 PM EDT documented in this encounter Progress Notes * Marizol ParkerSILVIO Cortes - 08/01/2022 2:30 PM EDT Images from the original note were not included. Hematology/Oncology Outpatient Clinic note [facility] [address] [place], [place] [address] Name: Kassi Latif Date: 08/01/2022 CHIEF COMPLAINT: Kassi Latif is a 67 year old female patient of Dr. Pichardo Lanette here today for f/u visit today. From Patient chart confirmed with patient. From Dr. Pichardo Lanette note 01/29/22 HEMATOLOGY/ONCOLOGY DIAGNOSIS: Right breast cancer-grade invasive lobular cancer - ER/TN positive. Too4dci negative Cancer Staging pT1c(m)N(sn)0(i-). DATE OF DIAGNOSIS: September of 2017 TREATMENT HISTORY: - Bilateral mastectomy by Dr. Giles at [facility] on 15 December 2017 -She receive AC followed by Taxol. Received total of 8 doses of Taxol and then was discontinuedbecause of the neurotoxicity despite the dose reduction. Last chemotherapy was on 07/07/2018. -radiation therapy because of positive margin completed 11/10/18 -she was treated with adjuvant hormone therapy including letrozole and Arimidex but it was discontinued because of the side effects and poor tolerance CURRENT TREATMENT: Observation. She refused to continue hormone treatment ONCOLOGY HISTORY: Patient found on self-examination lump in the right axillary area. She had imaging studies done which showed 2 small irregular masses in the right axillary area. She had a biopsy done in September of 2017. The result of the biopsy was as follows: Right axilla superior palpable: intermediate grade invasive lobular cancer - ER/TN positive. Dip0tbs negative. LCIS is also present. No LVI. No lymph node tissue identified. Right axilla inferior palpable: intermediate grade invasive lobular cancer - ER/TN positive. Hvq6hip negative. No insitu disease. No LVI. No lymph node tissue identified. Right upper posterior breast calcifications: LCIS. She subsequently underwent a bilateral mastectomy by Dr. Giles at [facility] on 15 December 2017. Pathology was as follow: [place] lymph node was 1 and non sentinel [...] 2. MITOTIC RATE: 1. OVERALL GRADE: 2/3 (Nino score 6/9). TUMOR FOCALITY: Two separate primary [...] NODES: TOTAL NUMBER OF LYMPH NODES EXAMINED ([place] and nonsentinel): 7. NUMBER OF LYMPH NODES INVOLVED BY CARCINOMA: 0. TREATMENT EFFECT: No known presurgical treatment. PATHOLOGIC STAGE: pT1c(m)N(sn)0(i-). ESTROGEN RECEPTOR: Positive on previous biopsy. PROGESTERONE RECEPTOR: Positive on previous biopsy. HER2/JONNATHAN: Negative on previous biopsy. Patient has history of diabetes and hypertension. She also has a history significant for the backproblem and underwent back surgery few years ago. HISTORY OF PRESENT ILLNESS: Kassi Latif is a 67 year old female with a history as outlined above. Currently here for f/u visit today. Patient following with bariatric medicine at [facility]. Had blood work done for them showing a significantly elevated ferritin level and increased LFTs. Had abdominal ultrasound showing diffuse fatty liver disease. Taking vitamin b12 supplement. Denies taking an iron supplement. Thyroid studieshave been addressed by PCP. Has not yet started a vitamin d supplement. Rarely drinks alcohol. Denies any known family history of hereditary hemochromatosis. Often has poor appetite, early satiety and nausea d/t diabetic gastroparesis. Patient reports joint pains. Does have a history of chronic back pain and sciatica. Comes and goes in severity. Also has pain in her ankles and in her hands. Gets injections in right shoulder for old rotator cuff surgery. Denies SOB. Denies lower extremity swelling. Bariatric surgery currently on hold d/t need for a cardiac stress test. Has not yet had it d/t issues with HTN. Is going to see hepatology through [facility] on the . Is taking MVI with no iron. Does take Vicodin only once a day in the evening. Past Medical History: Diagnosis Date Diabetes (HCC) hhyprertension Hypertension Hypothyroid Venous (peripheral) insufficiency lower extremities Past Surgical History: Procedure Laterality Date DELIVERY X 2 LAPAROSCOPY; CHOLECYSTECTOMY MASTECTOMY, SIMPLE, COMPLETE Bilateral 12/15/2017 12/15/2017 bilateral simple mastectomy [facility] DR. Grzegorz Giles MISCELLANEOUS ORDER (HS ONLY) lower back surgery X 2 REMOVE TONSILS & ADENOIDS, UNDER 12 age 8 Social History Tobacco Use Smoking status: Former Types: Cigarettes Quit date: 03/24/1988 Years since quittin.3 Smokeless tobacco: Never Substance and Sexual Activity Alcohol use: Yes Comment: rarely Drug use: Yes Types: Marijuana Comment: Pt states vaporized medical marijuana Review of patient's allergies indicates: Allergen Reactions Adhesive Tape Codeine Nausea/vomiting Erythromycin Nausea/vomiting Indomethacin Valtrex [Valacyclovir Hcl] Tachycardia Current Outpatient Medications Medication Sig Dispense Refill MetFORMIN (GLUCOPHAGE) 1000 MG Tablet Take by mouth. losartan-hctz 100-25 mg per tab (HYZAAR) 100-25 MG per tablet Take by mouth daily. levothyroxine (LEVOXYL) 200 MCG Tablet Take by mouth. FLUoxetine HCl (PROZAC) 40 MG Capsule Take by mouth daily. insulin aspart (NOVOLOG FLEXPEN) 100 UNIT/ML SOPN Inject under the skin. aspirin enteric coated 81 MG TBEC Take by mouth daily. Cyanocobalamin (VITAMIN B-12 ER) 1000 MCG TBCR Take by mouth daily. [place] 3 1000 MG CAPS Take by mouth [...] min prior to procedure 5 Tab 0 ondansetron (ZOFRAN) 8 MG Tablet Take 1 Tab by mouth every 8 hours as needed for Nausea. 30 Tab3 lidocaine-prilocaine (EMLA) 2.5-2.5 % cream APPLY TO SKIN OVER MEDIPORT & COVER 1HR PRIOR TO ACCESSING. 30 g 1 magic swizzle (MAGIC MOUTHWASH) 15 ml Swish and swallow 15 mL 4 times a day before meals and atbedtime. 300 mL 1 Insulin Degludec (TRESIBA FLEXTOUCH) 100 UNIT/ML SOPN Inject under the skin daily. traMADol (ULTRAM) 50 MG Tablet Take 1 Tab by mouth every 6 hours as needed for Pain. 30 Tab 0 HYDROcodone-acetaminophen 5-325 mg per tab 5-325 MG per tablet Take 1 Tab by mouth at bedtime as needed for Pain, Breakthrough. 30 Tab 0 oxyCODONE-acetaminophen 5-325 mg per tab (PERCOCET) 5-325 MG per tablet Take 1 Tab by mouth every 4 hours as needed for Pain, Moderate. 60 Tab 0 Calcium Carbonate-Vitamin D 600-400 [...] 1 Tab by mouth 2 times aday. Metoprolol Succinate ER 50 MG Oral Tablet Extended Release 24 Hour (toPROL XL) Take 50 mg by mouth daily. No current facility-administered medications for this visit. REVIEW OF SYSTEMS: See HPI - otherwise negative OBJECTIVE: Filed Vitals: 08/01/22 1431 BP: 155/89 Pulse: 105 Resp: 16 Temp: 36.4 C (97.6 F) TempSrc: Tympanic SpO2: 95% Weight: 102.6 kg (226 lb 1.6 oz) Wt Readings from Last 5 Encounters: 08/01/22 102.6 kg (226 lb 1.6 oz) 01/29/22 114.7 kg (252 lb 12.8 oz) 05/09/21 120.5 kg (265 lb 11.2 oz) 11/06/20 121.5 kg (267 lb 14.4 oz) 06/01/20 127.6 kg (281 lb 3.2 oz) PHYSICAL EXAM: ECOG: Performance Status 1 = 80-90% Symptoms but nearly ambulatory General Appearance: No acute distress Lungs/Thorax: Normal respiratory effort Extremities: +lymphedema RUE Neurologic: Normal - Grossly intact LABS [facility]: IMAGING: Abdominal U/S 12/06/21: Impression 1. Findings suggesting diffuse hepatic steatosis without discrete solid or cystic mass. 2. Otherwise unremarkable ultrasound of the right upper quadrant status post cholecystectomy. IMPRESSION/PLAN: Elevated ferritin History of right breast cancer Fatty liver disease Patient will repeat cbc/diff, cmp, ferritin and iron screen today Will recommend HFE mutation testing if ferritin remains significantly elevated Continue to follow with weight management clinic and weight loss efforts Continue to minimize use of hepatotoxic substances including tylenol and alcohol Patient verbalized understanding and is agreeable to plan RTC in 6 months with provider with cbc/diff, cmp, ferritin and iron screen [place] documented in this encounter Nursing Notes * Prema Molina CMA - 08/01/2022 2:32 PM EDT Patient identifed by name and birthdate Do you have any concerns about pain management for today's visit? No Living Will or Advance Directive for Health Care as noted on the problem list. [facility] is a way you can talk to your provider on line through e-mail. Would you like to sign up? I can activate it for you? ALREADY ACTIVE Filed Vitals: 08/01/22 1431 BP: 155/89 Pulse: 105 Resp: 16 Temp: 36.4 C (97.6 F) TempSrc: Tympanic SpO2: 95% Weight: 102.6 kg (226 lb 1.6 oz) Patient was instructed to not get [...] Specialty Care Team Description 02/03/2023 Laboratory Laboratory [place], Lab Scenery [address] [place] [address] 02/06/2023 Office Visit Hematology Oncology Marizol Nunez CRNP [address] [place] [address] Scheduled Orders Name Type Priority Associated Diagnoses Orde r Schedule CBC WITH WBC DIFFERENTIAL Lab STAT Elevated ferritin Expected: 01/31/2023 (Approximate), Expires: 08/01/2023 COMPREHENSIVE METABOLIC PANEL Lab STAT Elevated ferritin Expected: 01/31/2023 (Approximate), Expires: 08/01/2023 IRON SCREEN, INCLUDING TIBC Lab STAT Elevated ferritin Expected: 01/31/2023 (Approximate), Expires: 08/01/2023 FERRITIN Lab STAT Elevated ferritin Expected: 01/31/2023 (Approximate), Expires: 08/01/2023 Health Maintenance Due Date Last Done Comments Pneumococcal Vaccine: 65+ Years (1 - PCV) 1963 Depression Screening, Annual for Pts 12 and Over 1969 HIV Screening 1972 DTaP,Tdap,and Td Vaccines (1 - Tdap) 1976 Cologuard 2002 Colonoscopy 2002 Colorectal Cancer Screening 2002 Fecal Occult Blood Test 2002 Sigmoidoscopy 2002 Zoster Vaccines (1 of 2) 2007 TSH FOR THYROID MEDICATION MONITORING YEARLY 07/06/2023 07/05/2022, 05/09/2021 Lipid Panel 07/06/2027 07/05/2022, [...] as of this encounter Visit Diagnoses Diagnosis Elevated ferritin- Primary Other abnormal blood chemistry History of right breast cancer Fatty liver disease, nonalcoholic Other chronic nonalcoholic liver disease documented in this encounter Care Teams Contracts Analyst Relationship Specialty Start Date End Date Ashley Truong MD [address] [place] [address] PCP - General Family Medicine 10/12/19 documented as of this encounter
--- OUTSIDE RECORDS SUMMARY | 2023-01-31 11:01 | External Medical Summary ---
Author Name Unknown Address Unknown Organization K01:LABORATORY [facility] [place] - [address] 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 The diagnosis of HH cannot be excluded as 2 to 4% of patients with HH and a [place]- background have this genotype. This genotype is also found in 20-30% of clinically normal individuals. For other ethnic or racial groups, the percentage of HH patients with heterozygosity for H63D may differ. This result does not rule out the presence of disease-causing mutations in other regions of the HFE gene or in other genes associated with HH. This result should be interpreted in the context of the clinical presentation and results of other laboratory tests (e.g., serum transferrin-iron saturation and serum ferritin). The above interpretation assumes that testing is being performed for a possible diagnosis of HH. For carrier testing, the interpretation of this result depends on the family history and the genotype of the affected individuals. A genetic consultation may be beneficial. Final Molecular diagnostic overall interpretation [Presence] in Blood or Tissue by Molecular genetics method 08/01/2022 15:25:43 Final Molecular diagnostic overall interpretation [Presence] in Blood or Tissue by Molecular genetics method 08/01/2022 15:25:43 Mutations covered in this assay include C282Y, H63D and S65C in the HFE gene. Final Molecular diagnostic overall interpretation [Presence] in Blood or Tissue by Molecular genetics method 08/01/2022 15:25:43 Final Additional comments [RFC] 08/01/2022 15:25:43 The performance characteristics of this assay have been validated by the [facility] at [facility]. It has not been cleared or approved by the FDA. The laboratory is regulated under CLIA as qualified to perform high complexity testing. This test is used for clinical purposes. It should not be regarded as investigational or for research. Final Additional comments [RFC] 08/01/2022 15:25:43 Final Additional comments [RFC] 08/01/2022 15:25:43 Ref: Marjan KV, Inocencio KE, Nadeen J, Pool V. [facility] [place] Clinical Guideline: Hereditary Hemochromatosis. Am J Gastroenterol. 2019;114(8):6477-0589 . Final Additional comments [RFC] 08/01/2022 15:25:43 Final Pathologist review of results 08/01/2022 15:25:43 Dr. Jennifer Swenson Final Performing Location LAB[facility]ATORY [place] [address] [address] [facility] [address] [address]
--- OUTSIDE RECORDS SUMMARY | 2023-01-31 11:01 | External Medical Summary | Summary of Care ---
Author Name Unknown Organization [facility] Address [address] [place] [address] Phone [phone] Care Team Providers Care Oil Field Laborer Name Role Phone Ashley Truong MD Primary Care Provider [phone] Reason for Visit * Reason Comments Outpatient Testing * Precert (Within 10 days (routine)) - Authorized Specialty Diagnoses / Procedures Referred By Contac t Referred To Contact Laboratory Diagnoses Elevated ferritin Procedures HFE MUTATION ANALYSIS, PCR Marino Gama MD [address] [place] [address] Referral ID Status Reason Start Date Expiration Date V isits Requested Visits Authorized [id number] Authorized Precert 07/24/2022 11/24/2022 999 [id number] Encounter Details Date Type Department Care Team Description 08/01/2022 Laboratory Laboratory [facility] 200 [facility] [place] [address] [facility] 200 [place] [address] Breast carcinoma, female, right (HCC); Elevated ferritin Allergies Active Allergy Reactions Severity Noted Date Comments Adhesive Tape Codeine Nausea/vomiting Erythromycin Nausea/vomiting Indomethacin Valacyclovir Hcl Tachycardia documented as of this encounter (statuses as of 08/01/2022) Medications Medication Sig Dispensed Refills Start Date [...] Take by mouth daily. 0 02/06/2017 Active [place] 3 1000 MG CAPS Take by mouth [...] 3 01/13/2018 Active lidocaine-prilocaine (EMLA) 2.5-2.5 % creamIndications:[place] st carcinoma, female, right (HCC) APPLY TO [...] as of this encounter (statuses as of 08/01/2022) Active Problems Problem Noted Date Central line clotted, initial encounter 11/25/2018 Encounter for antineoplastic chemotherap y 02/24/2018 Breast carcinoma, female, right 12/31/19 18 documented as of this encounter (statuses as of 08/01/2022) Immunizations Name Administration Dates Next Due COVID-19 mRNA, LNP-s, No Pre serve, 2-Dose Series ([employer]) 06/06/2020,05/16/2020 Covid-19, Mrna, Lnp-s, Pf, B ivalent Booster, 30 Mcg, IM, 12 yrs and above ([employer]) 01/07/2022,01/01/2021 Seasonal Influenza Virus Vac cine, Unspecified [...] Specialty Care Team Description 02/03/2023 Laboratory Laboratory [facility] [address] [place] [address] 02/06/2023 Office Visit Hematology Oncology Marizol Nunez CRNP [address] [place] [phone] Pending Results Name Type Priority Associated Diagnoses Date /Time COMPREHENSIVE METABOLIC PANEL Lab Routine Breast carcinoma, female, right (HCC) 08/01/2022 3:25 PM EDT HFE MUTATION ANALYSIS, PCR Lab STAT Elevated ferritin 08/01/2022 3:25 PM EDT IRON SCREEN, INCLUDING TIBC Lab STAT Elevated ferritin 08/01/2022 3:25 PM EDT FERRITIN Lab STAT Elevated ferritin 08/01/2022 3:25 PM EDT Health Maintenance Due Date Last Done [...] Not on filedocumented as of this encounter Procedures Procedure Name Priority Date/Time Associated Diagnosis Comments DIFFERENTIAL, AUTOMATED Routine 08/01/2022 3:25 PM EDT Breast carcinoma, female, right (HCC) CBC WITH WBC DIFFERENTIAL Routine 08/01/2022 3:25 PM EDT Breast carcinoma, female, right (HCC) CBC Routine 08/01/2022 3:25 PM EDT Breast carcinoma, female, right (HCC) documented in this encounter Results * DIFFERENTIAL, AUTOMATED (08/01/2022 3:25 PM EDT) WBC 8.15 4.00 - 10.80 K/uL 08/01/2022 3:37 PM EDT LABORATORY [place] 56-02 Neutrophils % 68.0 40.0 - 75.0 % 08/01/2022 3:37 PM EDT LABORATORY [facility] 56-02 Lymphocytes % 23.2 18.0 - 42.0 % 08/01/2022 3:37 PM EDT LABORATORY [facility] 56-02 Monocytes % 7.9 1.0 - 11.0 % 08/01/2022 3:37 PM EDT LABORATORY [facility] 56-02 Eosinophils % 0.5 0.0 - 6.0 % 08/01/2022 3:37 PM EDT LABORATORY [facility] 56-02 Basophils % 0.4 0.0 - 2.0 % 08/01/2022 3:37 PM EDT LABORATORY [facility] 56-02 Absolute Neutrophils 5.55 1.80 - 7.70 K/uL 08/01/2022 3:37 PM EDT LABORATORY [facility] 56-02 Absolute Lymphocytes 1.89 1.00 - 4.80 K/ul 08/01/2022 3:37 PM EDT LABORATORY [place] 56-02 Absolute Monocytes 0.64 0.00 - 1.10 K/uL 08/01/2022 3:37 PM EDT LABORATORY [facility] 56-02 Absolute Eosinophils 0.04 0.00 - 0.70 K/uL 08/01/2022 3:[address] PM [address]T [address] Absolute Basophils 0.03 0.00 - 0.20 K/uL 08/01/2022 3:37 PM EDT [facility] 56 Blood Venous blood specimen / Unknown Venipuncture / Unknown 08/01/2022 3:25 PM EDT 08/01/2022 3:25 PM EDT Marino Gama MD LAB BLOOD [facility] [address] [place], [place] [id number] * CBC (08/01/2022 3:25 PM EDT) WBC 8.15 4.00 - 10.80 K/uL 08/01/2022 3:37 PM EDT [place] [address] RBC 3.98 3.85 - 5.15 M/uL 08/01/2022 3:37 PM EDT [place] [address] HGB 13.3 12.0 - 15.3 g/dL 08/01/2022 3:[address] HCT 38.9 36.0 - 45.2 % 08/01/2022 3:[address] MCV 97.7 81.5 - 97.5 fL 08/01/2022 3:37 PM EDT [place] [address] MCH 33.4 27.0 - 34.0 pg 08/01/2022 3:37 PM EDT [place] [address] MCHC 34.2 32.0 - 36.0 g/dL 08/01/2022 3:37 PM EDT [place] [address] RDW 13.7 11.5 - 15.5 % 08/01/2022 3:[address] PLT 173 140 - 400 K/uL 08/01/2022 3:37 PM EDT [address] MPV 10.8 6.6 - 11.1 fL 08/01/2022 3:37 PM EDT [facility] 56 Blood Venous blood specimen / Unknown Venipuncture / Unknown 08/01/2022 3:25 PM EDT 08/01/2022 3:25 PM EDT Marino Gama MD LAB BLOOD [facility] LABORATORY [place] [facility] [place] [address] documented in this encounter Visit Diagnoses Diagnosis Breast carcinoma, female, right (HCC) Elevated ferritin Other abnormal blood chemistry documented in this encounter Care Teams Oil Field Laborer Relationship Specialty Start Date End Date Ashley Truong MD [address] [place] [address] PCP - General Family Medicine 10/12/19 documented as of this encounter
--- OUTSIDE RECORDS SUMMARY | 2023-01-31 11:01 | External Medical Summary ---
Author Name Unknown Address Unknown Organization K01:LABORATORY [facility] [place] - [address] [facility] [address] [facility] [address] Laboratory Report Ordering Provider Test Date Status MICHAEL LIAO 08/01/2022 15:25:43 Final Observation Date Value Abnormality Reference (Units ) Status Ferritin 08/01/2022 15:25:43 1407 Above high normal 13 -150 (ng/mL) Final Postmenopausal women have hi gher ferritin levels than pre-menopausal women. The above reference interval is based on pre-menopausal women. Performing Location LABORATORY C - [address] [facility] [address]
--- OUTSIDE RECORDS SUMMARY | 2023-01-31 11:01 | External Medical Summary ---
Author Name Unknown Address Unknown Organization K09:LABORATORY [place] [facility] - [address] [place] [address] Laboratory Report Ordering Provider Test Date Status MICHAEL LIAO 08/01/2022 15:25:43 Final Observation Date Value Abnormality Reference (Units ) Status BUN 08/01/2022 15:25:43 21 Above high normal 6-20 (mg/dL) Final Creatinine 08/01/2022 15:25:43 0.7 0.5-1.0 (mg/dL) Final Glomerular filtration rate/1.73 sq M.predicted [Volume Rate/Area] in Serum, Plasma or Blood by Creatinine-based formula (CKD-EPI) 08/01/2022 15:25:43 >90 >=60 (mL/min) Final eGFR is calculated based on the CKD-EPI 2020 equation SODIUM 08/01/2022 15:25:43 135 135-146 (m mol/L) Final Potassium 08/01/2022 15:25:43 4.2 3.5-5.1 (m mol/L) Final Cl 08/01/2022 15:25:43 99 98-107 (mm ol/L) Final CO2 08/01/2022 15:25:43 20 Below low normal 22- 32 (mmol/L) Final Anion gap 08/01/2022 15:25:43 16 Above high normal 7- 15 (mmol/L) Final Glucose 08/01/2022 15:25:43 390 Above high normal 70 -120 (mg/dL) Final Albumin 08/01/2022 15:25:43 4.3 3.8-5.0 (g /dL) Final AST (Aspartate aminotransferase) 08/01/2022 15:25:43 33 10-35 (U/L) Fin al Alk Phos 08/01/2022 15:25:43 115 35-130 (U/ L) Final Bilirubin, Total 08/01/2022 15:25:43 0.7 <=1 .2 (mg/dL) Final Calcium 08/01/2022 15:25:43 9.6 8.4-10.2 ( mg/dL) Final Protein 08/01/2022 15:25:43 6.5 6.0-8.3 (g /dL) Final ALT (Alanine aminotransferase) 08/01/2022 15:25:43 44 Above high normal 10-35 (U/L) Final Performing Location LABORATORY [place] [address] [place] [address]
--- OUTSIDE RECORDS SUMMARY | 2023-01-31 11:01 | External Medical Summary | Summary of Care ---
Author Name Unknown Organization [facility] Address [address] [place] [address] Phone [phone] Care Team Providers Care Gynecologist Name Role Phone Ashley Truong MD Primary Care Provider [phone] Reason for Visit * Reason Onset Date Comments Test Results 08/07/2022 Encounter Details Date Type Department Care Team Description 08/07/2022 Telephone Hematology/Oncology Treatment, [address] [address] Marino Gama MD [address] [place] [address] Test Results Allergies Active Allergy Reactions Severity Noted Date [...] Take by mouth daily. 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 Shewill need phlebotomy " Called patient- had difficulty hearing her due to poor service at patients house. She verbalizes understanding- she will come Saturday 08/12 at 130 for phlebotomy- needs consent signed. Scheduling: please schedule patient on 08/12 (Friday) at 130 pm for 1 hr appt on 503 "Phlebotomy- Lanette has to sign consent first (labs 08/01)" Patient is aware. documented in this encounter Plan of Treatment Upcoming Encounters Date Type Specialty Care Team Description 02/03/2023 Laboratory Laboratory [place], Lab Scenery [address] [place] [address] 02/06/2023 Office Visit Hematology Oncology Marizol Nunez CRNP [address] [place] [address] Health Maintenance Due Date Last [...] filedocumented as of this encounter Care Teams Gynecologist Relationship Specialty Start Date End Date Ashley Truong MD [address] [facility] [place] [address] PCP - General Family Medicine 10/12/19 documented as of this encounter
--- OUTSIDE RECORDS SUMMARY | 2023-01-31 11:01 | External Medical Summary ---
Author Name Unknown Address Unknown Organization K09:LABORATORY [place] [address] Laboratory Report Ordering Provider Test Date Status MICHAEL LIAO 08/01/2022 15:25:43 Final Observation Date Value Abnormality Reference (Units ) Status WBC, Total 08/01/2022 15:25:43 8.15 4.00-10.8 0 (K/uL) Final RBC 08/01/2022 15:25:43 3.98 3.85-5.15 (M/uL) Final Hemoglobin 08/01/2022 15:25:43 13.3 12.0-15.3 (g/dL) Final HCT 08/01/2022 15:25:43 38.9 36.0-45.2 (%) Final MCV 08/01/2022 15:25:43 97.7 81.5-97.5 (fL) Final MCH 08/01/2022 15:25:43 33.4 27.0-34.0 (pg) Final MCHC 08/01/2022 15:25:43 34.2 32.0-36.0 (g/dL) Final RDW 08/01/2022 15:25:43 13.7 11.5-15.5 (%) Final Platelets 08/01/2022 15:25:43 173 140-400 (K /uL) Final MPV 08/01/2022 15:25:43 10.8 6.6-11.1 ( fL) Final Performing Location LABORATORY [place] [address]
--- OUTSIDE RECORDS SUMMARY | 2023-01-31 11:01 | External Medical Summary ---
Author Name Unknown Address Unknown Organization K01:LABORATORY [facility] [place] [address] [place] [address] Laboratory Report Ordering Provider Test Date Status MICHAEL LIAO 08/01/2022 15:25:43 Final Observation Date Value Abnormality Reference (Units ) Status Iron 08/01/2022 15:25:43 92 33-151 (ug /dL) Final Iron-binding capacity 08/01/2022 15:25:43 269 250-425 (ug/dL) Final Transferrin Sat % 08/01/2022 15:25:43 34 15 -55 (%) Final Performing Location LABORATORY [facility] [place] - [address] [place] [address]
--- OUTSIDE RECORDS SUMMARY | 2023-01-31 11:01 | External Medical Summary | Summary of Care ---
Author Name Unknown Organization [facility] Address [address] [place] [address] Phone [phone] Care Team Providers Care Sports Development Officer Name Role Phone Ashley Truong MD Primary Care Provider [phone] Encounter Details Date Type Department Care Team Description 08/07/2022 Orders Only Hematology/Oncology [address] [address] Marino Gama MD [address] [place] [address] Allergies Active Allergy Reactions Severity Noted Date [...] Take by mouth daily. 0 02/06/2017 Active [place] 3 1000 MG CAPS Take by mouth [...] 3 01/13/2018 Active lidocaine-prilocaine (EMLA) 2.5-2.5 % creamIndications:[place] st carcinoma, female, right (HCC) APPLY TO [...] mRNA, LNP-s, No Pre serve, 2-Dose Series ([employer]EL[employer]) 06/06/2020,05/16/2020 Covid-19, Mrna, Lnp-s, Pf, B ivalent Booster, 30 Mcg, IM, 12 yrs and above (GELI) 01/07/2022,01/01/2021 Seasonal Influenza Virus Vac cine, Unspecified [...] Laboratory Laboratory [place], Lab Scenery [address] [place] [address] 02/06/2023 Office Visit Hematology Oncology Marizol Nunez CRNP [address] [place] [address] Health Maintenance Due Date Last Done [...] filedocumented as of this encounter Care Teams Sports Development Officer Relationship Specialty Start Date End Date Ashley Truong MD [address] [facility] [place] [id number] PCP - General Family Medicine 10/12/19 documented as of this encounter
--- OUTSIDE RECORDS SUMMARY | 2023-01-31 11:01 | External Medical Summary | Summary of Care ---
Author Name Unknown Organization [facility] Address [address] [place] [address] Phone [phone] Care Team Providers Care Digital Camera Technician Name Role Phone Ashley Truong MD Primary Care Provider [phone] Encounter Details Date Type Department Care Team Description 08/07/2022 Orders Only Hematology/Oncology [address] [address] Marino Gama MD [address] [place] [address] Hereditary hemochromatosis (HCC)* Allergies Active Allergy Reactions Severity Noted Date [...] Take by mouth daily. 0 02/06/2017 Active [place] 3 1000 MG CAPS Take by mouth [...] mRNA, LNP-s, No Pre serve, 2-Dose Series ([employer]) 06/06/2020,05/16/2020 Covid-19, Mrna, Lnp-s, Pf, B ivalent Booster, 30 Mcg, IM, 12 yrs and above ([employer]) 01/07/2022,01/01/2021 Seasonal Influenza Virus Vac cine, Unspecified [...] Team Description 02/03/2023 Laboratory Laboratory [facility] L[facility] [address] [place] [address] 02/06/2023 Office Visit Hematology Oncology Marizol Nunez CRNP [address] [place] [address] Health Maintenance Due Date [...] Diagnosis Hereditary hemochromatosis (HCC)- Primary Hereditary hemochromatosis documented in this encounter Care Teams Digital Camera Technician Relationship Specialty Start Date End Date Ashley Truong [facility] [address] [facility] [place] [address] PCP - General Family Medicine 10/12/19 documented as of this encounter
--- OUTSIDE RECORDS SUMMARY | 2023-01-31 11:01 | External Medical Summary | Summary of Care ---
Author Name Unknown Organization [facility] Address [address] [place] [address] Phone [phone] Care Team Providers Care Head Tennis Coach Name Role Phone Ashley Truong MD Primary Care Provider [phone] Reason for Visit * Reason Onset Date Comments Test Results 08/07/2022 Encounter Details Date Type Department Care Team Description 08/07/2022 Telephone Hematology/Oncology Treatment, [address] [address] Marino Gama MD [address] [place] [address] Test Results Allergies Active Allergy Reactions Severity [...] Take by mouth daily. 0 02/06/2017 Active [place] 3 1000 MG CAPS Take by mouth [...] mRNA, LNP-s, No Pre serve, 2-Dose Series ([employer]) 06/06/2020,05/16/2020 Covid-19, Mrna, Lnp-s, Pf, B ivalent Booster, 30 Mcg, IM, 12 yrs and above ([employer]) 01/07/2022,01/01/2021 Seasonal Influenza Virus Vac cine, Unspecified [...] encounter Miscellaneous Notes * Telephone Encounter - GARCÍA Draper - 08/07/2022 12:00 PM EDT Per nursing patient has been scheduled for phlebotomy for 08/12/22. * Telephone Encounter - Danette Rizo RN - 08/07/2022 11:[address] Gama: "Patient is positive for HFE heterozygous H63D mutation with elevated ferritin. Shanon need phlebotomy " Called patient- had difficulty [...] Encounters Date Type Specialty Care Team Description 08/12/2022 Hem/Onc Treatment Hematology Oncology [place], Chair 7 Hem Onc Scenery [address] [place] [address] 02/03/2023 Laboratory Laboratory [place], Lab Scenery [address] [place] [address] 02/06/2023 Office Visit Hematology Oncology Marizol Nunez CRNP [address] [place] [address] Health Maintenance Due Date Last Done Comments [...] filedocumented as of this encounter Care Teams Head Tennis Coach Relationship Specialty Start Date End Date Ashley Truong MD [address] [facility] [place] [place] [address] PCP - General Family Medicine 10/12/19 documented as of this encounter
--- OUTSIDE RECORDS SUMMARY | 2023-01-31 11:01 | External Medical Summary | Summary of Care ---
Author Name Unknown Organization [facility] Address [address] [facility] [address] Phone [phone] Care Team Providers Care Box Annealer Name Role Phone Ashley Truong MD Primary Care Provider [phone] Reason for Visit * Reason Comments Procedure Phlebotomy Encounter Details Date Type Department Care Team Description 08/20/2022 Hem/Onc Treatment Hematology/Oncology Treatment, [place] [address] [place] [address] [place], Chair 5 Hem Onc Scenery [address] [place] [address] Allergies Active Allergy Reactions Severity Noted Date Comments Adhesive Tape Codeine Nausea/vomiting Erythromycin Nausea/vomiting Indomethacin Valacyclovir Hcl Tachycardia documented as of this encounter (statuses as of 08/20/2022) Medications Medication Sig Dispensed Refills Start Date [...] Take by mouth daily. 0 02/06/2017 Active [place] 3 1000 MG CAPS Take by mouth [...] 3 01/13/2018 Active lidocaine-prilocaine (EMLA) 2.5-2.5 % creamIndications:[place] st carcinoma, female, right (HCC) APPLY TO [...] as of this encounter (statuses as of 08/20/2022) Active Problems Problem Noted Date Hereditary hemochromatosis 08/07/2022 Central line clotted, initial encounter 11/25/2018 Encounter for antineoplastic chemotherap y 02/24/2018 Breast carcinoma, female, right 12/31/19 18 documented as of this encounter (statuses as of 08/20/2022) Immunizations Name Administration Dates Next Due COVID-19 mRNA, LNP-s, No Pre serve, 2-Dose Series ([employer]) 06/06/2020,05/16/2020 Covid-19, Mrna, Lnp-s, Pf, B ivalent Booster, 30 Mcg, IM, 12 yrs and above (Zeel) 01/07/2022,01/01/2021 Seasonal Influenza Virus Vac cine, Unspecified [...] Sign Reading Time Taken Comments Blood Pressure 120/75 08/20/2022 1:08 PM EDT Pulse 82 08/20/2022 1:08 PM EDT Temperature 37.1 C (98.8 F) 08/20/2022 1:08 PM ED T Respiratory Rate 18 08/20/2022 1:08 PM EDT Oxygen Saturation 98% 08/20/2022 1:08 PM EDT Inhaled Oxygen Concentration - - Weight - - Height - - Body Mass Index - - documented in this encounter Nursing Notes * Neyda Painter RN - 08/20/2022 2:02 PM EDT Chair 7. Patient arrived here today for a phlebotomy -- patient showed up 2x last week for phlebotomy but multiple RNs attempted to get an IV on patient and had not been successful, hence pushing the phlebotomy back again and again into this week to try and get patient a phlebotomy, since ferritin is 1407. RN today was unable to obtain IV access that would work for a phlebotomy. RN attempted 2x. RN spokewith Dr. Gama today regarding the fact that RN is again unable to obtain IV access despite use of vein finder. Dr. Gama states patient should come back for appt with him in 3-4 weeks with labs before, and will discuss other options for treating her increased ferritin. Patient understands and is agreeable to this plan. Patient left facility in stable condition and denied any further needs. Patient will return to see Dr. Gama on 09/11 with labs at on 09/09 for CBCD, ferritin, iron profile. documented in this encounter Plan of Treatment Upcoming Encounters Date Type Specialty Care Team Description 09/09/2022 Laboratory Laboratory [place], Lab Scenery [address] [facility] [place] [address] 09/11/2022 Office Visit Hematology Oncology Marino Gama MD [address] [place] [address] 02/03/2023 Laboratory Laboratory [place] Lab Scenery [address] [facility] [place] [address] 02/06/2023 Office Visit Hematology Oncology Marizol Nunez CRNP [address] [facility] [place] [address] Health Maintenance Due Date Last Done [...] filedocumented as of this encounter Care Teams Box Annealer Relationship Specialty Start Date End Date Ashley Truong MD [address] [facility] [place] [id number] PCP - General Family Medicine 10/12/19 documented as of this encounter
== END 2023-01-29 14:47 | disposition home health service (06) | DRG 871 ==
LOC: ED 15:19 → SUATTDRO 20:36 → EDINP 20:36 → 1E 21:49 → 3N 01-28 21:52

== ENCOUNTER 2024-11-08 13:03 | Inpatient (IN) ==
--- NOTE | 2024-11-08 13:14 | Emergency Department Note ---
History of Present Illness General Chief complaint: Cardiac Assessment Stated complaint: CONGESTIVE HEART FAILURE Time Seen by Provider: 11/08/24 13:13 History of Present Illness This is a 69-year-old female who presents to the emergency department via private vehicle referred by PCP with complaints of "CHF". The patient notes that for the past 1 to 2 months she has had bilateral lower extremity edema most pronounced distal to the knees. She notes that her shoes barely fit secondary to the edema. She denies any history of blood clot. She does note that this past Friday she underwent a chest x-ray which showed CHF. She also notes bilateral lower extremity output studies performed on Friday of this past week were negative for DVT. She states that she was called by her PCP this past Friday to present to the ED. She presents today for further assessment. She denies any trauma, injury, fevers or chills. She denies any nausea or vomiting at this time. No chest pain or shortness of breath. Patient does take Lasix 20 mg daily. She has not taken Lasix today. Home Medications Medication Instructions Recorded Confirmed Type cyanocobalamin (vitamin B-12) 1,000 mcg PO DAILY 11/30/18 11/08/24 History 1,000 mcg tablet aspirin 81 mg tablet,delayed 0 mg PO DAILY 01/30/20 11/08/24 History release calcium 600 mg (as 1 cap PO DAILY 07/19/20 11/08/24 History carbonate)-vitamin D3 12.5 mcg (500 unit) capsule (Calcium with Vit D3) blood sugar diagnostic (OneTouch #100 ea 08/30/21 11/05/24 Rx Verio test strips) cholecalciferol (vitamin D3) 25 0 mcg PO DAILY 09/18/22 11/08/24 History mcg (1,000 unit) tablet (Vitamin D3) fluticasone propionate 50 1 spray intranasal DAILY PRN 09/18/22 11/08/24 History mcg/actuation nasal allergies spray,suspension diclofenac sodium 1 % topical gel 2 g topical QID PRN Pain #100 grams 01/29/23 11/08/24 Rx (Arthritis Pain (diclofenac)) gabapentin 100 mg capsule 100 mg PO .COMPLEX #30 caps 01/29/23 11/08/24 Rx ipratropium 0.5 mg-albuterol 3 mg 3 ml inhalation Q4H PRN wheezing 01/29/23 11/08/24 Rx (2.5 mg base)/3 mL nebulization #180 mL soln cyclobenzaprine 5 mg tablet 5 mg PO TID PRN muscle spasm #30 05/13/23 11/08/24 Rx tabs biotin 10,000 mcg capsule 10,000 mcg PO DAILY 08/26/23 11/08/24 History magnesium 250 mg tablet 250 mg PO DAILY 08/26/23 11/08/24 History meclizine 25 mg tablet 25 mg PO TID PRN Dizziness #30 tabs 08/27/23 11/08/24 Rx gabapentin 300 mg capsule 300 mg PO TID #90 caps 11/05/23 11/08/24 Rx nebulizers #1 ea 02/17/24 11/05/24 Rx amlodipine 10 mg tablet 10 mg PO DAILY #30 tabs 08/19/24 11/08/24 Rx fluoxetine 40 mg capsule 40 mg PO QAM #90 caps 08/19/24 11/08/24 Rx insulin degludec 200 unit/mL (3 60 unit (0.3 mL) subcut DAILY 90 08/19/24 11/08/24 Rx mL) subcutaneous pen ([facility] #27 mL FlexTouch U-200 insulin) levothyroxine 300 mcg tablet 300 mcg PO QAM #30 tabs 08/19/24 11/08/24 Rx losartan 100 1 tab PO DAILY #30 tabs 08/19/24 11/08/24 Rx mg-hydrochlorothiazide 25 mg tablet metoprolol succinate 50 mg 50 mg PO DAILY #30 tabs 08/19/24 11/08/24 Rx tablet,extended release 24 hr pen needle, diabetic 31 gauge x #100 ea 08/31/24 11/05/24 Rx 1/4" (Pen Needle) ondansetron HCl 4 mg tablet 4 mg PO QID PRN nausea and 09/14/24 11/08/24 Rx vomiting #30 tabs insulin lispro 100 unit/mL 1 sliding scale dose subcut 09/30/24 11/08/24 Rx subcutaneous pen (Admelog SoloStar USEASDIRECTD #60 mL U-) furosemide 20 mg tablet (Lasix) 20 mg PO QAM PRN Fluid Retention 10/11/24 11/08/24 Rx #90 tabs hydrocodone 10 mg-acetaminophen 1 tab PO Q8H PRN pain #30 tabs 10/25/24 11/08/24 Rx 325 mg tablet krill oil 1 cap PO DAILY 11/08/24 11/08/24 History Allergies Allergy/AdvReac Type Severity Reaction Status Date / Time adhesive Allergy Unknown "BLISTERS Verified 11/05/24 07:51 AND PULLS MY SKIN OFF" tirzepatide [From Mounjaro] AdvReac Intermediate Abdominal Verified 11/05/24 07:51 Pain codeine AdvReac Mild Nausea Verified 11/05/24 07:51 erythromycin base AdvReac Unknown STOMACH Verified 11/05/24 07:51 PAIN indomethacin AdvReac Unknown "THINS Verified 11/05/24 07:51 BLOOD OUT TOO MUCH" valacyclovir [From Valtrex] AdvReac Unknown Palpitation Verified 11/05/24 07:51 s Past Med/Surg History Problem List (Updated 11/08/24 @ 17:13 by Antonette Roberto DO) Volume overload CHF (congestive heart failure) (Acute) Physical deconditioning Dyspnea on exertion Swelling of both lower extremities (Acute) Ankle swelling Urinary symptom or sign Poor venous access Mass of right lower extremity Tendinitis of left rotator cuff Fall Trochanteric bursitis of right hip (Unknown) Hypertension UTI (urinary tract infection) (Acute) Chronic venous stasis Fatigue Elevated LFTs Elevated ferritin Hemochromatosis Piriformis syndrome of right side Low back pain Urinary tract infection Hip pain, right Abnormal ECG Right axillary fullness Snoring Rotator cuff arthropathy Cellulitis History of bruising easily Anxiety and depression Pain and swelling of right upper extremity Urinary frequency Rotator cuff tendonitis Injury of right hand (Acute) Uncontrolled type 2 diabetes mellitus with insulin therapy Joint pain in both hands (Chronic) History of lumbar laminectomy GERD (gastroesophageal reflux disease) (Chronic) Disc degeneration, lumbar (Chronic) Dyslipidemia (Acute) Infiltrating lobular carcinoma (Chronic) Malignant neoplasm of upper-outer quadrant of right breast in female, estrogen receptor positive (Chronic) Peripheral neuropathy (Chronic) Venous insufficiency (chronic) (peripheral) (Acute) Benign essential HTN (Chronic) Morbid obesity with BMI of 50.0-59.9, adult (Chronic) Vitamin D deficiency (Acute) Hypothyroidism (Chronic) Medical History Acute URI of multiple sites Encounter for immunization Acute sinusitis Tachycardia Encounter for examination following treatment at hospital Pyelonephritis Cat scratch of left lower leg Nasal congestion Left leg injury Cellulitis of right arm Urinary tract infection Cough Left flank pain Acute bronchitis Localized swelling, mass and lump, neck UTI (urinary tract infection) Hypokalemia Pneumonia hospitalization in June 2018 Anemia History of recent steroid use Neutropenia Cancer BREAST CANCER-RIGHT SIDE Hx of breast cancer HX OF BILATERAL MASTECTOMY NOV 2017. DO NOT USE RIGHT ARM Sciatica Peripheral neuropathy secondary to back surgery Venous insufficiency Fatty liver Degenerative disc disease Surgical History History of mastectomy BILATERAL, 12/15/17 @ [facility]. DO NOT USE RIGHT ARM History of hip surgery AN -LEFT SIDE History of tonsillectomy History of adenoidectomy History of laminectomy X 2 INCL FUSION-LUMBAR History of section X 2 History of dilatation and curettage History of cholecystectomy History of cardiac cath GREATER THAN 6 YRS AGO-NO STENTS-[facility] [place] Family History Mother Family history of diabetes mellitus Heart disease Hypertension Kidney disease Father Heart disease Hodgkins disease HLD (hyperlipidemia) Hypertension Sister Hypertension Daughter Colonic polyp Daughter Appendiceal carcinoid tumor Abnormal breast exam, Onset Age: 29 Aunt Gallbladder cancer, carcinoma Family/Other Breast cancer Denies family history of Ovarian cancer Prostate cancer Myocardial infarction Colorectal cancer Social History Smoking Status: Former smoker Tobacco Type: Cigarettes Age Started Using Tobacco: 21; Age Quit Using Tobacco: 33; packs per day: 1.5; Cigarettes Per Day: 30; Second Hand Exposure: Yes; Do You Dip or Chew Tobacco: No; Hx Alcohol Use: No Hx Substance Use: No Preferred Language: Arabic Communication Ability: Effective Visual Impairment: No Limitations Hearing Ability: Hard of Hearing Band Leader Required: No Beliefs That Will Affect Care: None marital status: / Current Living Situation: Family Current Living Situation Comment: alone current occupational status: retired current occupation: Retired / works Adminisrative associate for [employer] How many Children do You have: 2 Feels Safe at Home: Yes Childhood Exposure to Second-Hand Smoke: Yes Diet: regular caffeine: Yes (Diet soda ) during the past year weight has: remained stable Dental Care, Regularly: No Physical Activity Frequency: 1-2 Times per Week Seatbelt Use: always Sunscreen Use: Yes Do you think of yourself as: straight/heterosexual Sexual Activity: has been sexually active, but not for at least 12 months Gender Identity: Female Assistive Devices: Glasses and Walker Review of Systems A total of 10 systems reviewed and were otherwise negative Physical Exam Vital Signs Vital Signs - 24 hr 11/08/24 13:05 11/08/24 13:56 11/08/24 14:00 Temperature 36.4 C L Temperature Source Temporal Artery Scan Pulse Rate 83 80 Pulse Rate [Apical] Pulse Rate from SpO2 Sensor Respiratory Rate 19 Respiratory Effort / Characteristics Respiratory Depth Respiratory Pattern Blood Pressure 158/77 H Blood Pressure [Left Arm] Blood Pressure Mean 104 Blood Pressure Mean [Left Arm] Blood Pressure Position [Left Arm] Pulse Oximetry 100 Oxygen Delivery Method Room Air Room Air Sepsis Recent Fever Within 48 Hours No Sepsis New/Unexplained Change in Mental Status N/A Sepsis Action Taken by Nursing No Action Required 11/08/24 14:03 11/08/24 14:30 11/08/24 14:36 Temperature Temperature Source Pulse Rate 79 78 Pulse Rate [Apical] Pulse Rate from SpO2 Sensor 80 77 Respiratory Rate 19 21 Respiratory Effort / Characteristics Respiratory Depth Respiratory Pattern Blood Pressure 141/47 H 124/74 Blood Pressure [Left Arm] Blood Pressure Mean 78 89 Blood Pressure Mean [Left Arm] Blood Pressure Position [Left Arm] Pulse Oximetry 99 100 Oxygen Delivery Method Sepsis Recent Fever Within 48 Hours Sepsis New/Unexplained Change in Mental Status Sepsis Action Taken by Nursing 11/08/24 15:00 11/08/24 15:31 11/08/24 15:47 Temperature Temperature Source Pulse Rate 74 Pulse Rate [Apical] Pulse Rate from SpO2 Sensor 74 Respiratory Rate 16 Respiratory Effort / Characteristics Respiratory Depth Respiratory Pattern Blood Pressure 119/68 107/91 115/48 L Blood Pressure [Left Arm] Blood Pressure Mean 85 97 81 Blood Pressure Mean [Left Arm] Blood Pressure Position [Left Arm] Pulse Oximetry 100 Oxygen Delivery Method Sepsis Recent Fever Within 48 Hours Sepsis New/Unexplained Change in Mental Status Sepsis Action Taken by Nursing 11/08/24 16:00 11/08/24 16:00 11/08/24 16:00 Temperature 37.1 C Temperature Source Oral Pulse Rate 76 Pulse Rate [Apical] 96 H Pulse Rate from SpO2 Sensor 76 Respiratory Rate 17 20 Respiratory Effort / Characteristics Non-Labored Spontaneous Respiratory Depth Normal Respiratory Pattern Regular Blood Pressure 133/48 L Blood Pressure [Left Arm] 133/48 L Blood Pressure Mean 84 Blood Pressure Mean [Left Arm] 76 Blood Pressure Position [Left Arm] Semi-fowlers Pulse Oximetry 99 100 Oxygen Delivery Method Room Air Sepsis Recent Fever Within 48 Hours Sepsis New/Unexplained Change in Mental Status Sepsis Action Taken by Nursing 11/08/24 16:00 11/08/24 16:30 Temperature Temperature Source Pulse Rate 76 Pulse Rate [Apical] Pulse Rate from SpO2 Sensor 77 Respiratory Rate 20 Respiratory Effort / Characteristics Respiratory Depth Respiratory Pattern Blood Pressure 133/48 L Blood Pressure [Left Arm] Blood Pressure Mean 84 Blood Pressure Mean [Left Arm] Blood Pressure Position [Left Arm] Pulse Oximetry 99 Oxygen Delivery Method Sepsis Recent Fever Within 48 Hours Sepsis New/Unexplained Change in Mental Status Sepsis Action Taken by Nursing VITAL SIGNS - Vital signs and nursing notes were reviewed. Stable and afebrile. GENERAL -69-year-old female appearing her stated age who is in no acute distress. Communicates well with provider and answers questions appropriately. SKIN - Without rashes. No meningeal petechial rash. There is bilateral lower extremity edema most pronounced distal to the knees. HEAD - NC/AT. EYES - PERRL with EOMI bilaterally. Sclera anicteric. EARS - No deformities of external structures noted on gross examination bilaterally. NOSE - Midline and without cyanosis. No epistaxis or purulent drainage noted. MOUTH/OROPHARYNX - Without perioral cyanosis. NECK - Neck with FROM. No nuchal rigidity. LUNGS - CTA CARDIAC - RRR ABDOMEN - Abdominal contour normal without pulsations or visible masses. BS normoactive all four quadrants. No tenderness, palpable masses, hepatosplenomegaly, or ascites noted. EXTREMITIES - No clubbing or peripheral cyanosis. Bilat Lower ext edema noted. No palp cord. +5/5 strength noted in UE/LE bilaterally. NEUROLOGIC - Cranial nerves II through XII grossly intact. PSYCH -alert, oriented to pleasant on exam Course Administered Medications Hydrocodone Bitart/Acetaminophen (Hydrocodone/Acetaminophen 10/325 Tab) 1 tab PO Q8H PRN PRN Reason: pain Stop: 11/22/24 20:18 Last Admin: 11/08/24 21:21 Dose: 1 tab Documented By: ERLINDA Amlodipine Besylate (Amlodipine Besylate 5 Mg Tab) 10 mg PO DAILY HETAL Stop: 12/09/24 08:59 Last Admin: 11/09/24 09:35 Dose: 10 mg Documented By: OZZY Calcium/Vitamin D (Calcium 600mg + Vit D 400 Iu Tab) 1 tab PO DAILY HETAL Stop: 12/09/24 08:59 Last Admin: 11/09/24 09:35 Dose: 1 tab Documented By: OZZY Cyanocobalamin (Cyanocobalamin (B-12) 500 Mcg Tablet) 1,000 mcg PO DAILY HETAL Stop: 12/09/24 08:59 Last Admin: 11/09/24 09:35 Dose: 1,000 mcg Documented By: OZZY Fluoxetine HCl (Fluoxetine Hcl 20 Mg Cap) 40 mg PO QAM HETAL Stop: 12/09/24 08:59 Last Admin: 11/09/24 09:36 Dose: 40 mg Documented By: OZZY Furosemide (Furosemide 80 Mg Tab) 80 mg PO BID17 HETAL Stop: 12/09/24 08:59 Last Admin: 11/09/24 09:36 Dose: 80 mg Documented By: OZZY Gabapentin (Gabapentin 300 Mg Cap) 300 mg PO TID HETAL Stop: 12/08/24 20:59 Last Admin: 11/09/24 09:36 Dose: 300 mg Documented By: Admin: 11/08/24 21:22 Dose: 300 mg Documented By: ERLINDA Gabapentin (Gabapentin 100 Mg Cap) 100 mg PO HS HETAL Stop: 12/08/24 20:59 Last Admin: 11/08/24 21:22 Dose: 100 mg Documented By: ERLINDA HCTZ/Losartan Potassium (Losartan/Hctz 50/12.5mg Tab) 1 tab PO DAILY HETAL Stop: 12/09/24 08:59 Last Admin: 11/09/24 09:37 Dose: 1 tab Documented By: OZZY Heparin Sodium (Porcine) (Heparin 100 Unit/Ml 5ml Flush) 5 ml FLUSH PRN PRN PRN Reason: Flush Stop: 12/09/24 03:07 Last Admin: 11/09/24 07:35 Dose: 5 ml Documented By: ADINA Insulin Aspart (Insulin Aspart Per Unit Charge) 0 units SC ACHS HETAL Stop: 12/08/24 18:49 Last Admin: 11/09/24 09:35 Dose: 13 units Documented By: OZZY Co-signed By: ADINA Admin: 11/08/24 18:57 Dose: 11 units Documented By: BRADEN Co-signed By: IDD Levothyroxine Sodium (Levothyroxine Sodium 150 Mcg Tablet) 300 mcg PO QAM HETAL Stop: 12/09/24 08:59 Last Admin: 11/09/24 09:36 Dose: 300 mcg Documented By: OZZY Magnesium Oxide (Magnesium Oxide 400 Mg Tab) 400 mg PO DAILY HETAL Stop: 12/09/24 08:59 Last Admin: 11/09/24 09:37 Dose: 400 mg Documented By: OZZY Metoprolol Succinate (Metoprolol Succ 50mg Ext Rel Tab) 50 mg PO DAILY HETAL Stop: 12/09/24 08:59 Last Admin: 11/09/24 09:37 Dose: 50 mg Documented By: OZZY Vitamin D (Cholecalciferol 25 Mcg (1000 Units) Tab) 25 mcg PO DAILY HETAL Stop: 12/09/24 08:59 Last Admin: 11/09/24 09:35 Dose: 25 mcg Documented By: OZZY Discontinued Medications Furosemide (Furosemide 40 Mg/4 Ml Vial) 40 mg IV ONE ONE Stop: 11/08/24 14:41 Last Admin: 11/08/24 14:57 Dose: 40 mg Documented By: CEF Ceftriaxone Sodium (Rocephin) 1,000 mg in 50 mls @ 100 mls/hr IV NOW STA Stop: 11/08/24 16:03 Last Infusion: 11/08/24 16:48 Dose: Infused Documented By: Admin: 11/08/24 16:07 Dose: 100 mls/hr Documented By: FIDELINA Insulin Glargine (Lantus Per Unit Charge) 38 units SQ HS HETAL Stop: 12/08/24 20:59 Last Admin: 11/08/24 21:20 Dose: 38 units Documented By: ERLINDA Co-signed By: CHAIM Medical Decision Making Laboratory Data 11/09/24 07:32 11/09/24 07:32 Lab Results 11/08/24 11/08/24 Range/Units 14:00 14:52 WBC 10.00 (4.8-10.8) K/ul RBC 3.34 L (4.20-5.40) M/uL Hgb 10.6 L (12.0-16.0) g/dl Hct 31.9 L (37.0-47.0) % MCV 95.5 (80.0-100.0) fL MCH 31.7 (25.0-34.0) pg MCHC 33.2 (32.0-36.0) g/dL RDW Std Deviation 44.6 (36.4-46.3) fL RDW Coeff of Rosa 13.0 (11.5-14.5) % Plt Count 228 (130-400) K/uL MPV 9.4 (9.4-12.4) fL Immature Gran % (Auto) 0.4 % Neut % (Auto) 69.0 % Lymph % (Auto) 19.2 % Bledsoe % (Auto) 10.0 % Eos % (Auto) 1.0 % Baso % (Auto) 0.4 % Neut # (Auto) 6.90 H (1.40-6.50) K/uL Lymph # (Auto) 1.92 (1.20-3.40) K/uL Bledsoe # (Auto) 1.00 H (0.11-0.59) K/uL Eos # (Auto) 0.10 (0.00-0.50) K/uL Baso # (Auto) 0.04 (0.00-0.20) K/uL Immature Gran # (Auto) 0.04 (0.01-0.20) K/uL PT 10.2 (9.0-12.0) Seconds INR 0.9 (0.9-1.1) APTT 23 (21-31) Seconds PTT Ratio 0.9 Sodium 136 (136-145) mmol/L Potassium 3.9 (3.5-5.1) mmol/L Chloride 103 (98-107) mmol/L Carbon Dioxide 28 (21-32) mmol/L Anion Gap 5 (3-11) BUN 32 H (6-23) mg/dl Creatinine 0.89 (0.6-1.2) mg/dl Est Cr Clr Drug Dosing 67.7 ml/min eGFR 71.01 BUN/Creatinine Ratio 36.0 H (10-20) Glucose 243 H (70-99(Fasting)) mg/dl Calcium 8.5 L (8.6-10.3) mg/dl Magnesium 1.8 (1.7-2.4) mg/dl Total Bilirubin 0.6 (0.2-1.0) mg/dl AST 27 (13-39) U/L ALT 30 (7-52) U/L Alkaline Phosphatase 58 (34-104) U/L Troponin I High Sens 3.0 (0-14) pg/ml B-Natriuretic Peptide 140 H (0-100) pg/ml Total Protein 5.9 L (6.0-8.3) gm/dl Albumin 3.1 L (3.4-5.0) gm/dl Globulin 2.8 (2.5-4.0) gm/dl Albumin/Globulin Ratio 1.1 (0.9-2) TSH 0.171 L (0.300-4.500) uIu/ml Free T4 2.10 H (0.61-1.60) ng/dl Urine Color Yellow Urine Appearance Clear (Clear) Urine pH 7.0 (4.5-7.5) Ur Specific [place] 1.015 (1.000-1.030) Urine Protein Negative (Negative) Urine Glucose (UA) Trace H (Negative) Urine Ketones Negative (Negative) Urine Blood Negative (Negative) Urine Nitrite Positive A (Negative) Urine Bilirubin Negative (Negative) Urine Urobilinogen Negative (Negative) Ur Leukocyte Esterase Trace H (Negative) Urine RBC 0-2 (0-2) /hpf Urine WBC 11-20 H (0-5) /hpf Ur Epithelial Cells 0-2 (0-2) /hpf Urine Bacteria 4+ H (None Seen) Urine Comment Imaging Data Radiologist's Impression: Chest X-Ray 11/08/24 13:27 XR chest 1V portable CLINICAL HISTORY: leg edema COMPARISON STUDY: 11/05/2024 FINDINGS: Stable chest port. Stable cardiomegaly with mild pulmonary vascular congestion. No consolidation or pleural effusion. No pneumothorax. IMPRESSION: Mild CHF. ACT 112: Negative or not required by law. Electronically signed by: Blu Pandey M.D. 11/08/2024 1:53 PM [facility] Narrative Patient was seen and evaluated as above in room B6. Review was performed of triage nursing notes and vital signs. I did review pertinent previous visits and patient history. After obtaining a thorough history and physical examination the above work up was performed. Patient presents to us today referred by PCP for evaluation of CHF. Patient did undergo outpatient chest x-ray this past 11/05/24. This showed mild CHF. She also had bilateral lower extremity Doppler studies performed to evaluate for DVT. This was performed 11/05/2024 as well. These were negative. An EKG was performed. Per my interpretation this reveals normal sinus rhythm at a rate of 76 bpm. QTc 450. QRS 74. No ST elevation on this rhythm tracing. A chest x-ray was performed and per my interpretation does reveal CHF. This is similar to Friday's chest x-ray. I did not repeat Doppler studies as they were negative just a few days ago. I did order IV Lasix for this patient, 40 mg IV noting her usual dose of 20 mg po daily. She did not have today's dose thus far. There is no leukocytosis. There is minor anemia noted with hemoglobin at 10.6. Coags are normal. No emergent metabolic disturbance but will note hyperglycemia to 43. Troponin is normal making ACS less likely. BNP is elevated at 140. TSH mildly low and a free T4 is pending at this time. Urine returned concerning for infection and IV ceftriaxone was added as the patient does note foul-smelling urine. I do believe that further evaluation and management the inpatient setting is warranted. Case discussed with the hospitalist service. Please refer to further documentation regarding her stay GCS: 15 In the evaluation and treatment of this patient the following differential diagnoses were entertained: [place], pneumonia, CHF, DVT, vena cava thrombus, among others. Impression & Plan CHF (congestive heart failure), Swelling of both lower extremities Discharge Plan Visit Data Chief Complaint: Cardiac Assessment Stated Complaint: CONGESTIVE HEART FAILURE ED Provider: Jason Sanchez ED Midlevel Provider: Forrest Gr Discharge Problem: CHF (congestive heart failure), Swelling of both lower extremities Patient Disposition: Admitted As Inpatient Condition: Good Discharge Instructions Interventions: ED Discharge Assessment Last Done: 11/08/24 19:48
--- NOTE | 2024-11-08 13:55 | XRay Report ---
XR chest 1V portable CLINICAL HISTORY: leg edema COMPARISON STUDY: 11/05/2024 FINDINGS: Stable chest port. Stable cardiomegaly with mild pulmonary vascular congestion. No consolid ation or pleural effusion. No pneumothorax. IMPRESSION: Mild CHF. ACT 112: Negative or not required by law. Electronically signed by: Blu Pandey M.D. 11/08/2024 1:53 PM
[2024-11-08 14:18] LABS: Hematocrit (blood only) 31.9 % (37.0-47.0); Hemoglobin 10.6 g/dl (12.0-16.0); Immature Granulocytes # (auto) 0.04 K/uL (0.01-0.20); Immature Granulocytes % (auto) 0.4 %; Mean Corpuscular Hemoglobin 31.7 pg (25.0-34.0); Mean Corpuscular Volume 95.5 fL (80.0-100.0); Platelet Count 228 K/uL (130-400); RDW Standard Deviation 44.6 fL (36.4-46.3); Red Blood Count 3.34 M/uL (4.20-5.40); White Blood Count 10.00 K/ul (4.8-10.8)
[2024-11-08 14:35] LABS: Alanine Aminotransferase 30.0 U/L (7-52); Albumin Globulin Ratio 1.1 (0.9-2); Alkaline Phosphatase 58.0 U/L (34-104); Anion Gap 5.0 (3-11); Bilirubin,Total 0.6 mg/dl (0.2-1.0); Blood Urea Nitrogen 32.0 mg/dl (6-23); Calcium 8.5 mg/dl (8.6-10.3); Carbon Dioxide 28.0 mmol/L (21-32); Chloride 103.0 mmol/L (98-107); Creatinine Clr Calc Pharmacy 67.7 ml/min; Globulin 2.8 gm/dl (2.5-4.0); Glucose 243.0 mg/dl (70-99(Fasting)); Magnesium 1.8 mg/dl (1.7-2.4); Potassium 3.9 mmol/L (3.5-5.1); Sodium 136.0 mmol/L (136-145); Total Protein 5.9 gm/dl (6.0-8.3)
[2024-11-08 14:42] LABS: INR 0.9 (0.9-1.1); Partial Thromboplastin Time 23 Seconds (21-31); Prothrombin Time 10.2 Seconds (9.0-12.0)
[2024-11-08 14:50] LABS: Thyroid Stimulating Hormone 0.171 uIu/ml (0.300-4.500)
[2024-11-08] MEDS: FUROSEMIDE 40 MG/4 ML VIAL IV ONE (14:57)
[2024-11-08 15:11] LABS: Appearance Urine Clear (Clear); Glucose Urine UA Trace (Negative)
[2024-11-08 15:25] LABS: Epithelial Cell Urine 0-2 /hpf (0-2)
[2024-11-08] MEDS: cefTRIAXone SODIUM 1,000 MG/50 ML BAG IV STA (16:07)
--- NOTE | 2024-11-08 16:59 | History & Physical Report ---
Date of Service November 08, 2024 Assessment & Plan (1) Swelling of both lower extremities: (2) Ankle swelling: (3) Volume overload: (4) Physical deconditioning: Plan Kassi Latif is a 69 yo woman with PMH of diabetes, lymphedema, breast cancer (s/p mastectomy), hemachromatosis, neuropath, chronic back pain, on oxycodone, hypertension (amlodipine, losartan, hctz) she's usually can ambulate using a walker around hallway 3 times. she was scheduled for stress test 3 years ago, but did not completed given elevated blood pressure. since 4 weeks ago, been having leg edema, tried oral lasix but no improvement, she's fell on 11/07 and came to our hospital for evaluation, found to has CHF exacerbation, 3-4 plus edema, her duplex ultrasound negative, need admitted for IV lasix, and found to has UTI 1. acute volume overload, leg edema 2. fall episode 3. UTI, foul smelling urine 4. insulin dependent diabetes (tresiba 60 qHS and mealtime 12-20 units) 5. neuropathy on gabapentin (300mg morning afternoon, 400 qHs) 6. chronic back pain on PRN hydrocodone, and PRN flexierl 5mg 7. hemochromatosis 8. hx of breast cancer s/p mastectomy 8. hypothyroidism 9. mood disorder on fluoxetine 40mg 1. acute volume overload lasix 80mg BID, echo, may need stress test if leg edema persist, hold amlodipine low threshold to repeat DVT studies 2. fall episode, PT and OT to evaluation at baseline she's used a walker and can walk around the hallway 3-4 times 3. UTI-c/w ceftriaone, f/u on urine culture 4. insulin dependent diabetes home dose of tresiba 60mg qHS, giving her 38 units here she's getting 12-20 units mealtime insulin 5.hypertension, she's on amlodipine 10mg metoprolol ER 50mg, losartan 100mg-hctz 25mg 6. chronic dizziness,she lie in recliner and use PRN meclzine 7. neuropathy- gabapentin 300mg mroning and afternoon, 400mg qHS 8. chronic back pain, she's on PRN oxycodone and PRN flexeril 5mg 9. hemochromatosis, she's seeing hematology DVT prophylaxis, heparin 5000 q8 hours noticed she's has easy bleeding on aspirin 81mg History of Present Illness Chief Complaint: leg edema for 4 weeks fall episode yesterday edema failed oral lasix Primary Care Provider: Ashley Truong MD Veronika Latif is a 69 yo woman with PMH of lymphedema, DM-insulin dependent (60 units of tresiba, and 12-18 units of mealtime humalog), breast cancer s/p masectomy, hemachromatosis recurrent UTI. 2-3 years ago, she was schedule for lexiscan stress test, but those are aborted given her elevaed BP, she has no cardiology follow up she use a walker and normal can walk around the hallway 2-3 times before being winded. since 4 weeks ago, she's been having leg edema, she's tried oral lasix 20mg, but her leg edema persisted. she fall yesterday and came to ED on friday (11/08/2024) and found to has volume overload, needing IV lasix, in addition, been having foul smelling urine and treated for UTI on interview, she's denied any chest pain, shortness of breath. she's has no coughing, kahlil wheezing she's quitted smoking 35-40 years ago. she will need IV lasix for 48-72 hours, PT evaluation Allergies Allergy/AdvReac Type Severity Reaction Status Date / Time adhesive Allergy Unknown "BLISTERS Verified 11/05/24 07:51 AND PULLS MY SKIN OFF" tirzepatide [From Mounjaro] AdvReac Intermediate Abdominal Verified 11/05/24 07:51 Pain codeine AdvReac Mild Nausea Verified 11/05/24 07:51 erythromycin base AdvReac Unknown STOMACH Verified 11/05/24 07:51 PAIN indomethacin AdvReac Unknown "THINS Verified 11/05/24 07:51 BLOOD OUT TOO MUCH" valacyclovir [From Valtrex] AdvReac Unknown Palpitation Verified 11/05/24 07:51 s Home Medications Medication Instructions Recorded Confirmed Type cyanocobalamin (vitamin B-12) 1,000 mcg PO DAILY 11/30/18 11/08/24 History 1,000 mcg tablet aspirin 81 mg tablet,delayed 0 mg PO DAILY 01/30/20 11/08/24 History release calcium 600 mg (as 1 cap PO DAILY 07/19/20 11/08/24 History carbonate)-vitamin D3 12.5 mcg (500 unit) capsule (Calcium with Vit D3) blood sugar diagnostic (OneTouch #100 ea 08/30/21 11/05/24 Rx Verio test strips) cholecalciferol (vitamin D3) 25 0 mcg PO DAILY 09/18/22 11/08/24 History mcg (1,000 unit) tablet (Vitamin D3) fluticasone propionate 50 1 spray intranasal DAILY PRN 09/18/22 11/08/24 History mcg/actuation nasal allergies spray,suspension diclofenac sodium 1 % topical gel 2 g topical QID PRN Pain #100 grams 01/29/23 11/08/24 Rx (Arthritis Pain (diclofenac)) gabapentin 100 mg capsule 100 mg PO .COMPLEX #30 caps 01/29/23 11/08/24 Rx ipratropium 0.5 mg-albuterol 3 mg 3 ml inhalation Q4H PRN wheezing 01/29/23 11/08/24 Rx (2.5 mg base)/3 mL nebulization #180 mL soln cyclobenzaprine 5 mg tablet 5 mg PO TID PRN muscle spasm #30 05/13/23 11/08/24 Rx tabs biotin 10,000 mcg capsule 10,000 mcg PO DAILY 08/26/23 11/08/24 History magnesium 250 mg tablet 250 mg PO DAILY 08/26/23 11/08/24 History meclizine 25 mg tablet 25 mg PO TID PRN Dizziness #30 tabs 08/27/23 11/08/24 Rx gabapentin 300 mg capsule 300 mg PO TID #90 caps 11/05/23 11/08/24 Rx nebulizers #1 ea 02/17/24 11/05/24 Rx amlodipine 10 mg tablet 10 mg PO DAILY #30 tabs 08/19/24 11/08/24 Rx fluoxetine 40 mg capsule 40 mg PO QAM #90 caps 08/19/24 11/08/24 Rx insulin degludec 200 unit/mL (3 60 unit (0.3 mL) subcut DAILY 90 08/19/24 11/08/24 Rx mL) subcutaneous pen ( #27 mL FlexTouch U-200 insulin) levothyroxine 300 mcg tablet 300 mcg PO QAM #30 tabs 08/19/24 11/08/24 Rx losartan 100 1 tab PO DAILY #30 tabs 08/19/24 11/08/24 Rx mg-hydrochlorothiazide 25 mg tablet metoprolol succinate 50 mg 50 mg PO DAILY #30 tabs 08/19/24 11/08/24 Rx tablet,extended release 24 hr pen needle, diabetic 31 gauge x #100 ea 08/31/24 11/05/24 Rx 1/4" (Pen Needle) ondansetron HCl 4 mg tablet 4 mg PO QID PRN nausea and 09/14/24 11/08/24 Rx vomiting #30 tabs insulin lispro 100 unit/mL 1 sliding scale dose subcut 09/30/24 11/08/24 Rx subcutaneous pen (Admelog SoloStar USEASDIRECTD #60 mL U-) furosemide 20 mg tablet (Lasix) 20 mg PO QAM PRN Fluid Retention 10/11/2411/08 Rx #90 tabs hydrocodone 10 mg-acetaminophen 1 tab PO Q8H PRN pain #30 tabs 10/25/24 11/08/24 Rx 325 mg tablet krill oil 1 cap PO DAILY 11/08/24 11/08/24 History Past Med/Surg History Problem List (Updated 11/08/24 @ 17:13 by Antonette Roberto, ) Volume overload CHF (congestive heart failure) (Acute) Physical deconditioning Dyspnea on exertion Swelling of both lower extremities (Acute) Ankle swelling Urinary symptom or sign Poor venous access Mass of right lower extremity Tendinitis of left rotator cuff Fall Trochanteric bursitis of right hip (Unknown) Hypertension UTI (urinary tract infection) (Acute) Chronic venous stasis Fatigue Elevated LFTs Elevated ferritin Hemochromatosis Piriformis syndrome of right side Low back pain Urinary tract infection Hip pain, right Abnormal ECG Right axillary fullness Snoring Rotator cuff arthropathy Cellulitis History of bruising easily Anxiety and depression Pain and swelling of right upper extremity Urinary frequency Rotator cuff tendonitis Injury of right hand (Acute) Uncontrolled type 2 diabetes mellitus with insulin therapy Joint pain in both hands (Chronic) History of lumbar laminectomy GERD (gastroesophageal reflux disease) (Chronic) Disc degeneration, lumbar (Chronic) Dyslipidemia (Acute) Infiltrating lobular carcinoma (Chronic) Malignant neoplasm of upper-outer quadrant of right breast in female, estrogen receptor positive (Chronic) Peripheral neuropathy (Chronic) Venous insufficiency (chronic) (peripheral) (Acute) Benign essential HTN (Chronic) Morbid obesity with BMI of 50.0-59.9, adult (Chronic) Vitamin D deficiency (Acute) Hypothyroidism (Chronic) Medical History Acute URI of multiple sites Encounter for immunization Acute sinusitis Tachycardia Encounter for examination following treatment at hospital Pyelonephritis Cat scratch of left lower leg Nasal congestion Left leg injury Cellulitis of right arm Urinary tract infection Cough Left flank pain Acute bronchitis Localized swelling, mass and lump, neck UTI (urinary tract infection) Hypokalemia Pneumonia hospitalization in June 2018 Anemia History of recent steroid use Neutropenia Cancer BREAST CANCER-RIGHT SIDE Hx of breast cancer HX OF BILATERAL MASTECTOMY NOV 2017. DO NOT USE RIGHT ARM Sciatica Peripheral neuropathy secondary to back surgery Venous insufficiency Fatty liver Degenerative disc disease Surgical History History of mastectomy BILATERAL, 12/15/17 @ [facility]. DO NOT USE RIGHT ARM History of hip surgery AN INFANT-LEFT SIDE History of tonsillectomy History of adenoidectomy History of laminectomy X 2 INCL FUSION-LUMBAR History of section X 2 History of dilatation and curettage History of cholecystectomy History of cardiac cath GREATER THAN 6 YRS AGO-NO STENTS-[facility] [place] Family History Mother Family history of diabetes mellitus Heart disease Hypertension Kidney disease Father Heart disease Hodgkins disease HLD (hyperlipidemia) Hypertension Sister Hypertension Daughter Colonic polyp Daughter Appendiceal carcinoid tumor Abnormal breast exam, Onset Age: 29 Aunt Gallbladder cancer, carcinoma Family/Other Breast cancer Denies family history of Ovarian cancer Prostate cancer Myocardial infarction Colorectal cancer Social History Smoking Status: Former smoker Tobacco Type: Cigarettes Age Started Using Tobacco: 21; Age Quit Using Tobacco: 33; packs per day: 1.5; Cigarettes Per Day: 30; Second Hand Exposure: Yes; Do You Dip or Chew Tobacco: No; Hx Alcohol Use: Yes Alcohol type: hard liquor Alcohol Intake Frequency: Monthly or Less Alcohol Intake Frequency Comment: drinks socially Hx Substance Use: No Preferred Language: Greenlandic Communication Ability: Effective Visual Impairment: No Limitations Hearing Ability: Hard of Hearing Local [employer] Required: No Beliefs That Will Affect Care: None marital status: / Current Living Situation: Alone Current Living Situation Comment: alone current occupational status: retired current occupation: Retired / works Adminisrative associate for [employer] How many Children do You have: 2 Feels Safe at Home: Yes Childhood Exposure to Second-Hand Smoke: Yes Diet: regular caffeine: Yes (Diet soda ) during the past year weight has: remained stable Dental Care, Regularly: No Physical Activity Frequency: 1-2 Times per Week Seatbelt Use: always Sunscreen Use: Yes Do you think of yourself as: straight/heterosexual Sexual Activity: has been sexually active, but not for at least 12 months Gender Identity: Female Assistive Devices: Cane, Raised Toilet Seat and Walker Review of Systems Review of Systems: Constitutional: No Weight Change, No Fever, No Chills, Cardiovascular: No Chest Pain, No SOB, No PND, No Dyspnea on Exertion, No Orthopnea, No Claudication, No Edema, No Palpitations Respiratory: No Cough, No Sputum, No Wheezing, No Smoke Exposure, No Dyspnea Gastrointestinal: No Nausea, No Vomiting, No Diarrhea, No Constipation, No Pain, Genitourinary: + for foul smelling urine; no hematuria Musculoskeletal: No Arthralgias, No Myalgias, No Joint Swelling, No Joint Stiffness, No Back Pain Skin: + for easy bleeding or easy bruising on aspirin Neuro: + for fall episode yesterday; + for neuropathy; Heme/Lymph: + for hematochromatosis Endocrine: + for insulin dependent diabetes Physical Exam Physical Exam: VITALS: Reviewed. WEIGHT/BMI reviewed. GEN: obese; non-toxic appearing -Head: NC/AT; -Eyes: PERRL, EOMI. No discharge or redn ess; -Mouth and throat: MMM. Normal gums, muc jeffrey, palate,. Good dentition. NECK: Supple, with no masses. CV: RRR, no m/r/g. + for port placement LUNGS: CTAB, no w/r/c. on room air; no wheezing; no cralces ABD: Soft, NT/ND, NBS, no masses or organomegaly. SKIN: Warm, well perfused. No skin rashes or abnormal lesions. MSK: no ulcer on the foot. EXT: + for 3 plus edema NEURO: AAox3 Results & Data Results & Data Vital Signs (Past 12 Hours) Vital Signs Temp Pulse Pulse Resp BP BP Pulse Ox 11/08/24 16:00 37.1 C 96 H 17 133/48 L 99 11/08/24 15:00 74 16 119/68 100 11/08/24 14:36 78 21 100 11/08/24 14:30 124/74 11/08/24 14:03 79 19 141/47 H 99 11/08/24 14:00 80 11/08/24 13:56 11/08/24 13:05 36.4 C L 83 19 158/77 H 100 O2 Del Method 11/08/24 16:00 Room Air 11/08/24 15:00 11/08/24 14:36 11/08/24 14:30 11/08/24 14:03 11/08/24 14:00 11/08/24 13:56 Room Air 11/08/24 13:05 Room Air Laboratory Results Laboratory Results - last 72 hr 11/08/24 11/08/24 14:00 14:52 WBC 10.00 RBC 3.34 L Hgb 10.6 L Hct 31.9 L MCV 95.5 MCH 31.7 MCHC 33.2 RDW Std Deviation 44.6 RDW Coeff of Rosa 13.0 Plt Count 228 MPV 9.4 Immature Gran % (Auto) 0.4 Neut % (Auto) 69.0 Lymph % (Auto) 19.2 [place] % (Auto) 10.0 Eos % (Auto) 1.0 Baso % (Auto) 0.4 Neut # (Auto) 6.90 H Lymph # (Auto) 1.92 [place] # (Auto) 1.00 H Eos # (Auto) 0.10 Baso # (Auto) 0.04 Immature Gran # (Auto) 0.04 PT 10.2 INR 0.9 APTT 23 PTT Ratio 0.9 Sodium 136 Potassium 3.9 Chloride 103 Carbon Dioxide 28 Anion Gap 5 BUN 32 H Creatinine 0.89 Est Cr Clr Drug Dosing 67.7 eGFR 71.01 BUN/Creatinine Ratio 36.0 H Glucose 243 H Calcium 8.5 L Magnesium 1.8 Total Bilirubin 0.6 AST 27 ALT 30 Alkaline Phosphatase 58 Troponin I High Sens 3.0 B-Natriuretic Peptide 140 H Total Protein 5.9 L Albumin 3.1 L Globulin 2.8 Albumin/Globulin Ratio 1.1 TSH 0.171 L Free T4 2.10 H Urine Color Yellow Urine Appearance Clear Urine pH 7.0 Ur Specific [place] 1.015 Urine Protein Negative Urine Glucose (UA) Trace H Urine Ketones Negative Urine Blood Negative Urine Nitrite Positive A Urine Bilirubin Negative Urine Urobilinogen Negative Ur Leukocyte Esterase Trace H Urine RBC 0-2 Urine WBC 11-20 H Ur Epithelial Cells 0-2 Urine Bacteria 4+ H Urine Comment Diagnostic Findings Chest X-Ray 11/08/24 13:27 XR chest 1V portable CLINICAL HISTORY: leg edema COMPARISON STUDY: 11/05/2024 FINDINGS: Stable chest port. Stable cardiomegaly with mild pulmonary vascular congestion. No consolidation or pleural effusion. No pneumothorax. IMPRESSION: Mild CHF. ACT 112: Negative or not required by law. Electronically signed by: Blu Pandey M.D. 11/08/2024 1:53 PM PG Care Time/CCT Total # of Minutes Spent Total Time Spent with Patient: Total time spent is greater than 50% in coordination of care (as documented) at patient's floor/unit and/or counseling patient: Coding Level of Care Code 31530 INT INP/OBS CARE 2/55MIN Diagnoses Swelling of both lower extremities M79.89 Ankle swelling, unspecified laterality M25.473 Laterality: unspecified laterality Volume overload E87.70 Physical deconditioning R53.81 Time Spent (min) 55 (2) Ankle swelling Laterality: unspecified laterality Qualified Code(s): M25.473 - Effusion, unspecified ankle
[2024-11-08] MEDS ORDERED: GLUCOSE 10 TAB/TUBE PO PRN ×2 (17:00→18:07)
[2024-11-08] MEDS ORDERED: DEXTROSE 50% 50 ML SYRINGE IV PRN ×2 (17:00→18:07)
[2024-11-08] MEDS ORDERED: GLUCAGON FOR INJ 1 MG VIAL SQ PRN ×2 (17:00→18:07)
[2024-11-08] MEDS ORDERED: GLUCOSE 40% GEL 15 GM TUBE PO PRN ×2 (17:00→18:07)
[2024-11-08] MEDS ORDERED: CARBOHYDRATES FOR HYPOGLYCEMIA PO PRN ×2 (17:00→18:07)
[2024-11-08] MEDS ORDERED: FUROSEMIDE 80 MG TAB PO SCH (18:00)
[2024-11-08] MEDS: INSULIN ASPART PER UNIT CHARGE SC SCH (18:57)
[2024-11-08] MEDS ORDERED: ALBUT/IPRATROP 3MG/0.5MG NEB 3 ML VIAL INH PRN (20:19)
[2024-11-08] MEDS ORDERED: NON-FORMULARY MEDICATION (Nebulizers misc) SCH (20:19)
[2024-11-08] MEDS ORDERED: MECLIZINE HCL 25 MG TAB PO PRN (20:19)
[2024-11-08] MEDS ORDERED: DICLOFENAC SOD 1% GEL 100 GM TUBE EXT PRN (20:19)
[2024-11-08] MEDS ORDERED: CYCLOBENZAPRINE HCL 5 MG TAB PO PRN (20:19)
[2024-11-08] MEDS ORDERED: FLUTICASONE PROPIONATE NA SPR 16 GM BTL PRN (20:19)
[2024-11-08] MEDS ORDERED: NON-FORMULARY MEDICATION (Blood Sugar Diagnostic [Onetouch Verio Test Strips] strip) SCH (21:00)
[2024-11-08] MEDS ORDERED: INSULIN ASPART PER UNIT CHARGE SC SCH (21:00)
[2024-11-08] MEDS: LANTUS PER UNIT CHARGE SQ SCH (21:20)
[2024-11-08] MEDS: GABAPENTIN 100 MG CAP PO SCH (21:22)
[2024-11-08] MEDS: GABAPENTIN 300 MG CAP PO SCH (21:22)
[2024-11-09] MEDS: HEPARIN 100 UNIT/ML 5ML FLUSH FLUSH PRN (07:35)
[2024-11-09 08:13] LABS: Hematocrit (blood only) 31.3 % (37.0-47.0); Hemoglobin 10.7 g/dl (12.0-16.0); Mean Corpuscular Hemoglobin 32.3 pg (25.0-34.0); Mean Corpuscular Volume 94.6 fL (80.0-100.0); Platelet Count 215 K/uL (130-400); RDW Standard Deviation 44.6 fL (36.4-46.3); Red Blood Count 3.31 M/uL (4.20-5.40); White Blood Count 8.42 K/ul (4.8-10.8)
[2024-11-09 08:31] LABS: Alanine Aminotransferase 32.0 U/L (7-52); Albumin Globulin Ratio 1.3 (0.9-2); Alkaline Phosphatase 59.0 U/L (34-104); Anion Gap 6.0 (3-11); Bilirubin,Total 0.7 mg/dl (0.2-1.0); Blood Urea Nitrogen 30.0 mg/dl (6-23); Calcium 8.7 mg/dl (8.6-10.3); Carbon Dioxide 30.0 mmol/L (21-32); Chloride 101.0 mmol/L (98-107); Creatinine Clr Calc Pharmacy 70.3 ml/min; Globulin 2.4 gm/dl (2.5-4.0); Glucose 206.0 mg/dl (70-99(Fasting)); Potassium 4.0 mmol/L (3.5-5.1); Sodium 137.0 mmol/L (136-145); Total Protein 5.6 gm/dl (6.0-8.3)
[2024-11-09] MEDS ORDERED: NON-FORMULARY MEDICATION (Krill Oil 1 CAP) PO SCH (09:00)
[2024-11-09] MEDS: CYANOCOBALAMIN (B-12) 500 MCG TABLET PO SCH (09:35)
[2024-11-09] MEDS: CHOLECALCIFEROL 25 MCG (1000 UNITS) TAB PO SCH (09:35)
[2024-11-09] MEDS: CALCIUM 600MG + VIT D 400 IU TAB PO SCH (09:35)
[2024-11-09] MEDS: FUROSEMIDE 80 MG TAB PO SCH (09:36)
[2024-11-09] MEDS: LEVOTHYROXINE SODIUM 150 MCG TABLET PO SCH (09:36)
[2024-11-09] MEDS: METOPROLOL SUCC 50MG EXT REL TAB PO SCH (09:37)
[2024-11-09] MEDS: MAGNESIUM OXIDE 400 MG TAB PO SCH (09:37)
[2024-11-09] MEDS: LOSARTAN/HCTZ 50/12.5MG TAB PO SCH (09:37)
--- NOTE | 2024-11-09 11:34 | Emergency Department Note ---
ED Visit Note I was consulted by the Advanced Practice Provider Forrest Gr PA-C. I performed a substantive portion of the visit including all aspects of medical decision making. .
--- NOTE | 2024-11-09 13:58 | Hospitalist Progress Note ---
Date of Service November 09, 2024 Assessment & Plan (1) Swelling of both lower extremities: (2) Ankle swelling: (3) Volume overload: (4) Physical deconditioning: Plan Kassi Latif is a 69 yo woman with PMH of diabetes, lymphedema, breast cancer (s/p mastectomy), hemachromatosis, neuropath, chronic back pain, on oxycodone, hypertension (amlodipine, losartan, hctz) Patient usually ambulate with walker around hallway 3 times. since 4 weeks ago, been having leg edema, tried oral lasix but no improvement, she's fell on 11/07 and came to our hospital for evaluation, found to has CHF exacerbation, 3-4 plus edema, her duplex ultrasound negative, need admitted for IV lasix, and found to has UTI 3 years ago, she did not completed her cardiac stress test given unstable HTN 11/08, afternoon lasix IV BID 11/09, cutting down amlodipine from 10mg--> 5mg. monitoir for rebound HTN to [place] 1. acute volume overload, leg edema 2. fall episode 3. UTI, foul smelling urine 4. insulin dependent diabetes (tresiba 60 qHS and mealtime 12-20 units) 5. neuropathy on gabapentin (300mg morning afternoon, 400 qHs) 6. chronic back pain on PRN hydrocodone, and PRN flexierl 5mg 7. hemochromatosis 8. hx of breast cancer s/p mastectomy 8. hypothyroidism 9. mood disorder on fluoxetine 40mg 1. acute volume overload, leg edema lasix 80mg BID, still has 3+ leg edema, hold amlodipine, c/w lasix echo show EF of 55-60^ may need stress test 2. fall episode, PT and OT to evaluation at baseline she's used a walker and can walk around the hallway 3-4 times 3. UTI-c/w ceftriaxone, f/u on urine culture 4. insulin dependent diabetes home dose of tresiba 60mg qHS, giving her 38 units here she's getting 12-20 units mealtime insulin 5.hypertension, she's on amlodipine 10mg metoprolol ER 50mg, losartan 100mg-hctz 25mg 6. chronic dizziness,she lie in recliner and use PRN meclzine 7. neuropathy- gabapentin 300mg mroning and afternoon, 400mg qHS 8. chronic back pain, she's on PRN oxycodone and PRN flexeril 5mg 9. hemochromatosis, she's seeing hematology DVT prophylaxis, heparin 5000 q8 hours noticed she's has easy bleeding on aspirin 81mg Admission and Anticipated Discharge Date Admission Date: November 08, 2024 Subjective she still has significant leg edema and need IV lasix BID no chest pain, shortness of breath, no orthopnea echo show EF of 55-60 cutting down amlodipine from 10mg to 5mg monitor for rebound HTN Review of Systems Review of Systems: Constitutional: No Weight Change, No Fever, No Chills Cardiovascular: No Chest Pain, No SOB, No PND, No Dyspnea on Exertion, No Orthopnea, No Palpitations Respiratory: No Cough, No Sputum, No Wheezing, No Smoke Exposure, No Dyspnea Gastrointestinal: No Nausea, No Vomiting, No Diarrhea, No Constipation, No Pain, No Heartburn, Genitourinary: no dysuria Musculoskeletal: + for leg edema; Neuro: No Weakness, No Numbness, No Paresthesias, No Loss of Consciousness Psych: No Anxiety/Panic, No Depression, No Insomnia, No Personality Changes, No Delusions, Endocrine: No Polyuria, No Polydipsia, No Temperature Intolerance Physical Exam Physical Exam: VITALS: Reviewed. WEIGHT/BMI reviewed. GEN: Healthy appearing, well-developed, NAD. PSYCH: Good Judgment. AOx3. Normal memory, mood, and affect. HEENT -Head: NC/AT; NECK: Supple, with no masses. CV: RRR, no m/r/g. LUNGS: CTAB, no w/r/c. ABD: Soft, NT/ND, NBS, no masses or organomegaly. : N/A SKIN: Warm, well perfused. No skin rashes or abnormal lesions. MSK: 3+ edema; no tenderness to palpation ;no erythema EXT: No clubbing, cyanosis, or edema. Neuro: AAox3 Results & Data Results & Data Vital Signs (Past 12 Hours) Vital Signs Temp Pulse Pulse Resp BP Pulse Ox O2 Del Method 11/09/24 11:29 36.6 C 85 20 112/73 98 Room Air 11/09/24 10:02 64 11/09/24 10:02 Room Air 11/09/24 08:10 36.5 C 71 18 145/84 H 96 Room Air 11/09/24 02:53 36.6 C 76 20 153/83 H 94 Room Air Laboratory Results Laboratory Results - last 72 hr 11/08/24 11/08/24 11/08/24 14:00 14:52 17:24 WBC 10.00 RBC 3.34 L Hgb 10.6 L Hct 31.9 L MCV 95.5 MCH 31.7 MCHC 33.2 RDW Std Deviation 44.6 RDW Coeff of Rosa 13.0 Plt Count 228 MPV 9.4 Immature Gran % (Auto) 0.4 Neut % (Auto) 69.0 Lymph % (Auto) 19.2 [place] % (Auto) 10.0 Eos % (Auto) 1.0 Baso % (Auto) 0.4 Neut # (Auto) 6.90 H Lymph # (Auto) 1.92 [place] # (Auto) 1.00 H Eos # (Auto) 0.10 Baso # (Auto) 0.04 Immature Gran # (Auto) 0.04 PT 10.2 INR 0.9 APTT 23 PTT Ratio 0.9 Sodium 136 Potassium 3.9 Chloride 103 Carbon Dioxide 28 Anion Gap 5 BUN 32 H Creatinine 0.89 Est Cr Clr Drug Dosing 67.7 eGFR 71.01 BUN/Creatinine Ratio 36.0 H Glucose 243 H POC Glucose 286 H Calcium 8.5 L Magnesium 1.8 Total Bilirubin 0.6 AST 27 ALT 30 Alkaline Phosphatase 58 Troponin I High Sens 3.0 B-Natriuretic Peptide 140 H Total Protein 5.9 L Albumin 3.1 L Globulin 2.8 Albumin/Globulin Ratio 1.1 TSH 0.171 L Free T4 2.10 H Urine Color Yellow Urine Appearance Clear Urine pH 7.0 Ur Specific [place] 1.015 Urine Protein Negative Urine Glucose (UA) Trace H Urine Ketones Negative Urine Blood Negative Urine Nitrite Positive A Urine Bilirubin Negative Urine Urobilinogen Negative Ur Leukocyte Esterase Trace H Urine RBC 0-2 Urine WBC 11-20 H Ur Epithelial Cells 0-2 Urine Bacteria 4+ H Urine Comment 11/08/24 11/09/24 11/09/24 20:02 07:32 08:02 WBC 8.42 RBC 3.31 L Hgb 10.7 L Hct 31.3 L MCV 94.6 MCH 32.3 MCHC 34.2 RDW Std Deviation 44.6 RDW Coeff of Rosa 12.8 Plt Count 215 MPV 9.6 Immature Gran % (Auto) Neut % (Auto) Lymph % (Auto) [place] % (Auto) Eos % (Auto) Baso % (Auto) Neut # (Auto) Lymph # (Auto) [place] # (Auto) Eos # (Auto) Baso # (Auto) Immature Gran # (Auto) PT INR APTT PTT Ratio Sodium 137 Potassium 4.0 Chloride 101 Carbon Dioxide 30 Anion Gap 6 BUN 30 H Creatinine 0.85 Est Cr Clr Drug Dosing 70.3 eGFR 75.04 BUN/Creatinine Ratio 35.3 H Glucose 206 H POC Glucose 254 H 227 H Calcium 8.7 Magnesium Total Bilirubin 0.7 AST 27 ALT 32 Alkaline Phosphatase 59 Troponin I High Sens B-Natriuretic Peptide Total Protein 5.6 L Albumin 3.2 L Globulin 2.4 L Albumin/Globulin Ratio 1.3 TSH Free T4 Urine Color Urine Appearance Urine pH Ur Specific [place] Urine Protein Urine Glucose (UA) Urine Ketones Urine Blood Urine Nitrite Urine Bilirubin Urine Urobilinogen Ur Leukocyte Esterase Urine RBC Urine WBC Ur Epithelial Cells Urine Bacteria Urine Comment 11/09/24 11:46 WBC RBC Hgb Hct MCV MCH MCHC RDW Std Deviation RDW Coeff of Rosa Plt Count MPV Immature Gran % (Auto) Neut % (Auto) Lymph % (Auto) [place] % (Auto) Eos % (Auto) Baso % (Auto) Neut # (Auto) Lymph # (Auto) [place] # (Auto) Eos # (Auto) Baso # (Auto) Immature Gran # (Auto) PT INR APTT PTT Ratio Sodium Potassium Chloride Carbon Dioxide Anion Gap BUN Creatinine Est Cr Clr Drug Dosing eGFR BUN/Creatinine Ratio Glucose POC Glucose 260 H Calcium Magnesium Total Bilirubin AST ALT Alkaline Phosphatase Troponin I High Sens B-Natriuretic Peptide Total Protein Albumin Globulin Albumin/Globulin Ratio TSH Free T4 Urine Color Urine Appearance Urine pH Ur Specific [place] Urine Protein Urine Glucose (UA) Urine Ketones Urine Blood Urine Nitrite Urine Bilirubin Urine Urobilinogen Ur Leukocyte Esterase Urine RBC Urine WBC Ur Epithelial Cells Urine Bacteria Urine Comment Diagnostic Findings Chest X-Ray 11/08/24 13:27 XR chest 1V portable CLINICAL HISTORY: leg edema COMPARISON STUDY: 11/05/2024 FINDINGS: Stable chest port. Stable cardiomegaly with mild pulmonary vascular congestion. No consolidation or pleural effusion. No pneumothorax. IMPRESSION: Mild CHF. ACT 112: Negative or not required by law. Electronically signed by: Blu Pandey M.D. 11/08/2024 1:53 PM PG Care Time/CCT Total # of Minutes Spent Total Time Spent with Patient: Total time spent is greater than 50% in coordination of care (as documented) at patient's floor/unit and/or counseling patient: Coding Level of Care Code 51954 SUB INP/OBS CARE 2/35MIN Diagnoses Swelling of both lower extremities M79.89 Ankle swelling, unspecified laterality M25.473 Laterality: unspecified laterality Volume overload E87.70 Physical deconditioning R53.81 Time Spent (min) 35 (2) Ankle swelling Laterality: unspecified laterality Qualified Code(s): M25.473 - Effusion, unspecified ankle
[2024-11-09] MEDS: cefTRIAXone SODIUM 2,000 MG/50 ML BAG IV SCH (20:22)
[2024-11-09] MEDS: LANTUS PER UNIT CHARGE SQ SCH (20:25)
[2024-11-09] MEDS: ONDANSETRON 4 MG OD TAB PO PRN (21:26)
[2024-11-10 07:26] LABS: Alanine Aminotransferase 39.0 U/L (7-52); Albumin Globulin Ratio 1.3 (0.9-2); Alkaline Phosphatase 63.0 U/L (34-104); Anion Gap 9.0 (3-11); Bilirubin,Total 0.5 mg/dl (0.2-1.0); Blood Urea Nitrogen 39.0 mg/dl (6-23); Calcium 9.0 mg/dl (8.6-10.3); Carbon Dioxide 32.0 mmol/L (21-32); Chloride 97.0 mmol/L (98-107); Creatinine Clr Calc Pharmacy 55.1 ml/min; Globulin 2.6 gm/dl (2.5-4.0); Glucose 164.0 mg/dl (70-99(Fasting)); Potassium 3.7 mmol/L (3.5-5.1); Sodium 138.0 mmol/L (136-145); Total Protein 5.9 gm/dl (6.0-8.3)
[2024-11-10 07:27] LABS: Hematocrit (blood only) 34.4 % (37.0-47.0); Hemoglobin 11.4 g/dl (12.0-16.0); Mean Corpuscular Hemoglobin 31.1 pg (25.0-34.0); Mean Corpuscular Volume 94.0 fL (80.0-100.0); Platelet Count 236 K/uL (130-400); RDW Standard Deviation 44.5 fL (36.4-46.3); Red Blood Count 3.66 M/uL (4.20-5.40); White Blood Count 9.00 K/ul (4.8-10.8)
--- NOTE | 2024-11-10 09:14 | Hospitalist Progress Note ---
Date of Service November 10, 2024 Assessment & Plan (1) Swelling of both lower extremities: (2) Ankle swelling: (3) Volume overload: (4) Physical deconditioning: Plan Kassi Latif is a 69 yo woman with PMH of diabetes, lymphedema, breast cancer (s/p mastectomy), hemachromatosis, neuropath, chronic back pain, on oxycodone, hypertension (amlodipine, losartan, hctz) Patient usually ambulate with walker around hallway 3 times. since 4 weeks ago, been having leg edema, tried oral lasix but no improvement, she's fell on 11/07 and came to our hospital for evaluation, found to has CHF exacerbation, 3-4 plus edema, her duplex ultrasound negative, need admitted for IV lasix, and found to has UTI 3 years ago, she did not completed her cardiac stress test given unstable HTN 11/08, afternoon lasix IV BID 11/09, cutting down amlodipine from 10mg--> 5mg. monitoir for rebound HTN to [place] 1. acute volume overload, leg edema 2. fall episode 3. UTI, foul smelling urine 4. insulin dependent diabetes (tresiba 60 qHS and mealtime 12-20 units) 5. neuropathy on gabapentin (300mg morning afternoon, 400 qHs) 6. chronic back pain on PRN hydrocodone, and PRN flexierl 5mg 7. hemochromatosis 8. hx of breast cancer s/p mastectomy 8. hypothyroidism 9. mood disorder on fluoxetine 40mg 1. acute volume overload, leg edema lasix 80mg BID, still has 3+ leg edema, hold amlodipine for Low BP and LE swelling, c/w lasix echo show EF of 55-60 And otherwise unrevealing may need stress test In near future can consider outpatient 2. fall episode, PT and OT to evaluation at baseline she's used a walker and can walk around the hallway 3-4 times 3. UTIE. coli. Switch IV Rocephin to Keflex X 7 days total 4. insulin dependent diabetes home dose of tresiba 60mg qHS, giving her 38 units here she's getting 12-20 units mealtime insulin 5.hypertension, metoprolol ER 50mg, losartan 100mg-hctz 25mg Close monitoring of blood pressure at home and close follow-up with PCP for further adjustment 6. chronic dizziness,she lie in recliner and use PRN meclzine 7. neuropathy- gabapentin 300mg mroning and afternoon, 400mg qHS 8. chronic back pain, she's on PRN oxycodone and PRN flexeril 5mg 9. hemochromatosis, she's seeing hematology DVT prophylaxis, heparin 5000 q8 hours noticed she's has easy bleeding on aspirin 81mg Disposition likely discharge in 1 to 2 days Admission and Anticipated Discharge Date Admission Date: November 08, 2024 Subjective Lower extremity edema unchanged Over past couple days per patient. No dyspnea orthopnea chest pain nausea lightheadedness or any other symptoms. Otherwise in good spirits. BP low. Norvasc discontinued. We discussed this is likely also contributing to lower extremity edema Review of Systems Review of Systems: Constitutional: No Weight Change, No Fever, No Chills Cardiovascular: No Chest Pain, No SOB, No PND, No Dyspnea on Exertion, No Orthopnea, No Palpitations Respiratory: No Cough, No Sputum, No Wheezing, No Smoke Exposure, No Dyspnea Gastrointestinal: No Nausea, No Vomiting, No Diarrhea, No Constipation, No Pain, No Heartburn, Genitourinary: no dysuria Musculoskeletal: + for leg edema; Neuro: No Weakness, No Numbness, No Paresthesias, No Loss of Consciousness Psych: No Anxiety/Panic, No Depression, No Insomnia, No Personality Changes, No Delusions, Endocrine: No Polyuria, No Polydipsia, No Temperature Intolerance Physical Exam Physical Exam: VITALS: Reviewed. WEIGHT/BMI reviewed. GEN: Healthy appearing, well-developed, NAD. PSYCH: Good Judgment. AOx3. Normal memory, mood, and affect. HEENT -Head: NC/AT; NECK: Supple, with no masses. CV: RRR, no m/r/g. LUNGS: CTAB, no w/r/c. ABD: Soft, NT/ND, NBS, no masses or organomegaly. : N/A SKIN: Warm, well perfused. No skin rashes or abnormal lesions. MSK: 3+ edema; no tenderness to palpation ;no erythema EXT: No clubbing, cyanosis, or edema. Neuro: AAox3 Results & Data Results & Data Vital Signs (Past 12 Hours) Vital Signs Temp Pulse Pulse Resp BP Pulse Ox O2 Del Method 11/10/24 07:34 36.3 C L 70 18 132/73 92 Room Air 11/10/24 07:07 73 11/10/24 03:25 36.7 C 72 18 94/62 L 96 Room Air 11/09/24 22:44 36.5 C 67 18 96/60 L 94 Room Air 11/09/24 22:00 68 Laboratory Results Abnormal Labs 11/08/24 11/08/24 11/08/24 14:00 14:52 17:24 RBC 3.34 L Hgb 10.6 L Hct 31.9 L Neut # (Auto) 6.90 H Kaufman # (Auto) 1.00 H Chloride BUN 32 H BUN/Creatinine Ratio 36.0 H Glucose 243 H POC Glucose 286 H Calcium 8.5 L B-Natriuretic Peptide 140 H Total Protein 5.9 L Albumin 3.1 L Globulin TSH 0.171 L Free T4 2.10 H Urine Glucose (UA) Trace H Urine Nitrite Positive A Ur Leukocyte Esterase Trace H Urine WBC 11-20 H Urine Bacteria 4+ H 11/08/24 11/09/24 11/09/24 20:02 07:32 08:02 RBC 3.31 L Hgb 10.7 L Hct 31.3 L Neut # (Auto) Kaufman # (Auto) Chloride BUN 30 H BUN/Creatinine Ratio 35.3 H Glucose 206 H POC Glucose 254 H 227 H Calcium B-Natriuretic Peptide Total Protein 5.6 L Albumin 3.2 L Globulin 2.4 L TSH Free T4 Urine Glucose (UA) Urine Nitrite Ur Leukocyte Esterase Urine WBC Urine Bacteria 11/09/24 11/09/24 11/09/24 11:46 16:53 19:59 RBC Hgb Hct Neut # (Auto) Kaufman # (Auto) Chloride BUN BUN/Creatinine Ratio Glucose POC Glucose 260 H 222 H 233 H Calcium B-Natriuretic Peptide Total Protein Albumin Globulin TSH Free T4 Urine Glucose (UA) Urine Nitrite Ur Leukocyte Esterase Urine WBC Urine Bacteria 11/10/24 11/10/24 06:25 08:53 RBC 3.66 L Hgb 11.4 L Hct 34.4 L Neut # (Auto) Kaufman # (Auto) Chloride 97 L BUN 39 H BUN/Creatinine Ratio 36.1 H Glucose 164 H POC Glucose 170 H Calcium B-Natriuretic Peptide Total Protein 5.9 L Albumin 3.3 L Globulin TSH Free T4 Urine Glucose (UA) Urine Nitrite Ur Leukocyte Esterase Urine WBC Urine Bacteria PG Care Time/CCT Total # of Minutes Spent Total Time Spent with Patient: Total time spent is greater than 50% in coordination of care (as documented) at patient's floor/unit and/or counseling patient: Coding Level of Care Code 10618 SUB INP/OBS CARE 2/35MIN Diagnoses Swelling of both lower extremities M79.89 Ankle swelling, unspecified laterality M25.473 Laterality: unspecified laterality Volume overload E87.70 Physical deconditioning R53.81 (2) Ankle swelling Laterality: unspecified laterality Qualified Code(s): M25.473 - Effusion, unspecified ankle
[2024-11-11 07:00] LABS: Hematocrit (blood only) 31.5 % (37.0-47.0); Hemoglobin 10.7 g/dl (12.0-16.0); Mean Corpuscular Hemoglobin 31.8 pg (25.0-34.0); Mean Corpuscular Volume 93.5 fL (80.0-100.0); Platelet Count 228 K/uL (130-400); RDW Standard Deviation 45.1 fL (36.4-46.3); Red Blood Count 3.37 M/uL (4.20-5.40); White Blood Count 9.47 K/ul (4.8-10.8)
[2024-11-11 07:21] LABS: Alanine Aminotransferase 37.0 U/L (7-52); Albumin Globulin Ratio 1.3 (0.9-2); Alkaline Phosphatase 60.0 U/L (34-104); Anion Gap 8.0 (3-11); Bilirubin,Total 0.5 mg/dl (0.2-1.0); Blood Urea Nitrogen 49.0 mg/dl (6-23); Calcium 8.6 mg/dl (8.6-10.3); Carbon Dioxide 33.0 mmol/L (21-32); Chloride 95.0 mmol/L (98-107); Creatinine Clr Calc Pharmacy 42.1 ml/min; Globulin 2.4 gm/dl (2.5-4.0); Glucose 101.0 mg/dl (70-99(Fasting)); Potassium 3.4 mmol/L (3.5-5.1); Sodium 136.0 mmol/L (136-145); Total Protein 5.5 gm/dl (6.0-8.3)
--- NOTE | 2024-11-11 09:40 | Hospitalist Progress Note ---
Date of Service November 11, 2024 Assessment & Plan (1) Swelling of both lower extremities: (2) Ankle swelling: (3) Volume overload: (4) Physical deconditioning: Plan Kassi Latif is a 69 yo woman with PMH of diabetes, lymphedema, breast cancer (s/p mastectomy), hemachromatosis, neuropath, chronic back pain, on oxycodone, hypertension (amlodipine, losartan, hctz) Patient usually ambulate with walker around hallway 3 times. since 4 weeks ago, been having leg edema, tried oral lasix but no improvement, she's fell on 11/07 and came to our hospital for evaluation, found to has CHF exacerbation, 3-4 plus edema, her duplex ultrasound negative, need admitted for IV lasix, and found to has UTI 3 years ago, she did not completed her cardiac stress test given unstable HTN 11/08, afternoon lasix IV BID 11/09, cutting down amlodipine from 10mg--> 5mg. monitoir for rebound HTN to [place] 1. acute volume overload, leg edema 2. fall episode 3. UTI, foul smelling urine 4. insulin dependent diabetes (tresiba 60 qHS and mealtime 12-20 units) 5. neuropathy on gabapentin (300mg morning afternoon, 400 qHs) 6. chronic back pain on PRN hydrocodone, and PRN flexierl 5mg 7. hemochromatosis 8. hx of breast cancer s/p mastectomy 8. hypothyroidism 9. mood disorder on fluoxetine 40mg 1. acute volume overload, leg edema lasix 80mg BID, still has 3+ leg edema, hold amlodipine for Low BP and LE swelling, c/w lasix echo show EF of 55-60 And otherwise unrevealing may need stress test In near future can consider outpatient 2. fall episode, PT and OT to evaluation at baseline she's used a walker and can walk around the hallway 3-4 times 3. UTIE. coli. Switch IV Rocephin to Keflex X 7 days total 4. insulin dependent diabetes home dose of tresiba 60mg qHS, giving her 38 units here she's getting 12-20 units mealtime insulin 5.hypertension, metoprolol ER 50mg, losartan 100mg-hctz 25mg Close monitoring of blood pressure at home and close follow-up with PCP for further adjustment 6. chronic dizziness,she lie in recliner and use PRN meclzine 7. neuropathy- gabapentin 300mg mroning and afternoon, 400mg qHS 8. chronic back pain, she's on PRN oxycodone and PRN flexeril 5mg 9. hemochromatosis, she's seeing hematology DVT prophylaxis, heparin 5000 q8 hours noticed she's has easy bleeding on aspirin 81mg Disposition discharge pending PTOT evaluations Admission and Anticipated Discharge Date Admission Date: November 08, 2024 Subjective Doing very well in good spirits. No chest pain shortness of breath orthopnea. Swelling in legs much better today per patient. Weight coming down. Review of Systems Review of Systems: Constitutional: No Weight Change, No Fever, No Chills Cardiovascular: No Chest Pain, No SOB, No PND, No Dyspnea on Exertion, No Orthopnea, No Palpitations Respiratory: No Cough, No Sputum, No Wheezing, No Smoke Exposure, No Dyspnea Gastrointestinal: No Nausea, No Vomiting, No Diarrhea, No Constipation, No Pain, No Heartburn, Genitourinary: no dysuria Musculoskeletal: + for leg edema; Neuro: No Weakness, No Numbness, No Paresthesias, No Loss of Consciousness Psych: No Anxiety/Panic, No Depression, No Insomnia, No Personality Changes, No Delusions, Endocrine: No Polyuria, No Polydipsia, No Temperature Intolerance Physical Exam Physical Exam: VITALS: Reviewed. WEIGHT/BMI reviewed. GEN: Healthy appearing, well-developed, NAD. PSYCH: Good Judgment. AOx3. Normal memory, mood, and affect. HEENT -Head: NC/AT; NECK: Supple, with no masses. CV: RRR, no m/r/g. LUNGS: CTAB, no w/r/c. ABD: Soft, NT/ND, NBS, no masses or organomegaly. : N/A SKIN: Warm, well perfused. No skin rashes or abnormal lesions. MSK: 3+ edema; no tenderness to palpation ;no erythema EXT: No clubbing, cyanosis, or edema. Neuro: AAox3 Results & Data Results & Data Vital Signs (Past 12 Hours) Vital Signs Temp Pulse Pulse Resp BP Pulse Ox O2 Del Method 11/11/24 08:28 36.4 C L 70 17 96/59 L 94 Room Air 11/11/24 07:26 66 11/11/24 04:00 36.4 C L 69 18 99/60 L 92 Room Air 11/11/24 00:00 36.5 C 75 18 114/72 97 Room Air Laboratory Results Abnormal Labs 11/08/24 11/08/24 11/08/24 14:00 14:52 17:24 RBC 3.34 L Hgb 10.6 L Hct 31.9 L Neut # (Auto) 6.90 H Harlan # (Auto) 1.00 H Potassium Chloride Carbon Dioxide BUN 32 H Creatinine BUN/Creatinine Ratio 36.0 H Glucose 243 H POC Glucose 286 H Calcium 8.5 L B-Natriuretic Peptide 140 H Total Protein 5.9 L Albumin 3.1 L Globulin TSH 0.171 L Free T4 2.10 H Urine Glucose (UA) Trace H Urine Nitrite Positive A Ur Leukocyte Esterase Trace H Urine WBC 11-20 H Urine Bacteria 4+ H 11/08/24 11/09/24 11/09/24 20:02 07:32 08:02 RBC 3.31 L Hgb 10.7 L Hct 31.3 L Neut # (Auto) Harlan # (Auto) Potassium Chloride Carbon Dioxide BUN 30 H Creatinine BUN/Creatinine Ratio 35.3 H Glucose 206 H POC Glucose 254 H 227 H Calcium B-Natriuretic Peptide Total Protein 5.6 L Albumin 3.2 L Globulin 2.4 L TSH Free T4 Urine Glucose (UA) Urine Nitrite Ur Leukocyte Esterase Urine WBC Urine Bacteria 11/09/24 11/09/24 11/09/24 11:46 16:53 19:59 RBC Hgb Hct Neut # (Auto) Harlan # (Auto) Potassium Chloride Carbon Dioxide BUN Creatinine BUN/Creatinine Ratio Glucose POC Glucose 260 H 222 H 233 H Calcium B-Natriuretic Peptide Total Protein Albumin Globulin TSH Free T4 Urine Glucose (UA) Urine Nitrite Ur Leukocyte Esterase Urine WBC Urine Bacteria 11/10/24 11/10/24 11/10/24 06:25 08:53 12:15 RBC 3.66 L Hgb 11.4 L Hct 34.4 L Neut # (Auto) Harlan # (Auto) Potassium Chloride 97 L Carbon Dioxide BUN 39 H Creatinine BUN/Creatinine Ratio 36.1 H Glucose 164 H POC Glucose 170 H 126 H Calcium B-Natriuretic Peptide Total Protein 5.9 L Albumin 3.3 L Globulin TSH Free T4 Urine Glucose (UA) Urine Nitrite Ur Leukocyte Esterase Urine WBC Urine Bacteria 11/10/24 11/10/24 11/11/24 16:49 20:22 06:31 RBC 3.37 L Hgb 10.7 L Hct 31.5 L Neut # (Auto) Harlan # (Auto) Potassium 3.4 L Chloride 95 L Carbon Dioxide 33 H BUN 49 H Creatinine 1.41 H D BUN/Creatinine Ratio 34.8 H Glucose 101 H POC Glucose 113 H 181 H Calcium B-Natriuretic Peptide Total Protein 5.5 L Albumin 3.1 L Globulin 2.4 L TSH Free T4 Urine Glucose (UA) Urine Nitrite Ur Leukocyte Esterase Urine WBC Urine Bacteria 11/11/24 08:05 RBC Hgb Hct Neut # (Auto) Harlan # (Auto) Potassium Chloride Carbon Dioxide BUN Creatinine BUN/Creatinine Ratio Glucose POC Glucose 107 H Calcium B-Natriuretic Peptide Total Protein Albumin Globulin TSH Free T4 Urine Glucose (UA) Urine Nitrite Ur Leukocyte Esterase Urine WBC Urine Bacteria PG Care Time/CCT Total # of Minutes Spent Total Time Spent with Patient: Total time spent is greater than 50% in coordination of care (as documented) at patient's floor/unit and/or counseling patient: Coding Level of Care Code 59750 SUB INP/OBS CARE 235MIN Diagnoses Swelling of both lower extremities M79.89 Ankle swelling, unspecified laterality M25.473 Laterality: unspecified laterality Volume overload E87.70 Physical deconditioning R53.81 (2) Ankle swelling Laterality: unspecified laterality Qualified Code(s): M25.473 - Effusion, un specified ankle
[2024-11-11] MEDS: POTASSIUM CHLORIDE CRTAB 20 MEQ TABCR PO SCH (10:12)
[2024-11-11 11:43] VITALS: BP 93/64; RESP 18; TEMP 97.9; O2SAT 98
--- NOTE | 2024-11-11 15:06 | Discharge Summary ---
Discharge Summary Date of Service November 11, 2024 Principal Dx & Hospital Course #1 = Principal Diagnosis (1) Swelling of both lower extremities: (2) Ankle swelling: (3) Volume overload: (4) Physical deconditioning: Stella Latif is a 69 yo woman with PMH of diabetes, lymphedema, breast cancer (s/p mastectomy), hemachromatosis, neuropath, chronic back pain, on oxycodone, hypertension (amlodipine, losartan, hctz) Patient usually ambulate with walker around hallway 3 times. since 4 weeks ago, been having leg edema, tried oral lasix but no improvement, she's fell on 11/07 and came to our hospital for evaluation, found to has CHF exacerbation, 3-4 plus edema, her duplex ultrasound negative, need admitted for IV lasix, and found to has UTI 3 years ago, she did not completed her cardiac stress test given unstable HTN 11/08, afternoon lasix IV BID 11/09, cutting down amlodipine from 10mg--> 5mg. monitoir for rebound HTN tomorrow 1. acute volume overload, leg edema 2. fall episode 3. UTI, foul smelling urine 4. insulin dependent diabetes (tresiba 60 qHS and mealtime 12-20 units) 5. neuropathy on gabapentin (300mg morning afternoon, 400 qHs) 6. chronic back pain on PRN hydrocodone, and PRN flexierl 5mg 7. hemochromatosis 8. hx of breast cancer s/p mastectomy 8. hypothyroidism 9. mood disorder on fluoxetine 40mg 1. acute volume overload, leg edema lasix 80mg BID, still has 3+ leg edema, hold amlodipine for Low BP and LE swelling, c/w lasix echo show EF of 55-60 And otherwise unrevealing may need stress test In near future can consider outpatient 2. fall episode, PT and OT to evaluation at baseline she's used a walker and can walk around the hallway 3-4 times 3. UTIE. coli. Switch IV Rocephin to Keflex X 7 days total 4. insulin dependent diabetes home dose of tresiba 60mg qHS, giving her 38 units here she's getting 12-20 units mealtime insulin 5.hypertension, metoprolol ER 50mg, losartan 100mg-hctz 25mg Close monitoring of blood pressure at home and close follow-up with PCP for further adjustment 6. chronic dizziness,she lie in recliner and use PRN meclzine 7. neuropathy- gabapentin 300mg mroning and afternoon, 400mg qHS 8. chronic back pain, she's on PRN oxycodone and PRN flexeril 5mg 9. hemochromatosis, she's seeing hematology DVT prophylaxis, heparin 5000 q8 hours noticed she's has easy bleeding on aspirin 81mg Disposition discharge pending PTOT evaluations Admission HPI Per Admitting Provider Veronika Latif is a 69 yo woman with PMH of lymphedema, DM-insulin dependent (60 units of tresiba, and 12-18 units of mealtime humalog), breast cancer s/p masectomy, hemachromatosis recurrent UTI. 2-3 years ago, she was schedule for lexiscan stress test, but those are aborted given her elevaed BP, she has no cardiology follow up she use a walker and normal can walk around the hallway 2-3 times before being winded. since 4 weeks ago, she's been having leg edema, she's tried oral lasix 20mg, but her leg edema persisted. she fall yesterday and came to ED on friday (11/08/2024) and found to has volume overload, needing IV lasix, in addition, been having foul smelling urine and treated for UTI on interview, she's denied any chest pain, shortness of breath. she's has no coughing, kahlil wheezing she's quitted smoking 35-40 years ago. she will need IV lasix for 48-72 hours, PT evaluation Discharge Exam VITALS: Reviewed. WEIGHT/BMI reviewed. GEN: Healthy appearing, well-developed, NAD. PSYCH: Good Judgment. AOx3. Normal memory, mood, and affect. HEENT -Head: NC/AT; NECK: Supple, with no masses. CV: RRR, no m/r/g. LUNGS: CTAB, no w/r/c. ABD: Soft, NT/ND, NBS, no masses or organomegaly. : N/A SKIN: Warm, well perfused. No skin rashes or abnormal lesions. MSK: 3+ edema; no tenderness to palpation ;no erythema EXT: No clubbing, cyanosis, or edema. Neuro: AAox3 Discharge Plan Discharge Items Patient Disposition: Home - Self-Care Reason For Visit: LEG EDEMA, FALLING, VOLUME OVERLOAD Discharge Diagnosis: Lower extremity edema Condition on Discharge: Good Activity: Resume your previous activity Non-emergency contact: Primary Care Provider and Waiter/Waitress Bar Call non-emergency contact if: you have any medication questions and your symptoms worsen Follow-up/Referrals: Ashley Truong MD [Primary Care Provider] - Diet: Carb Consistent or DM2, Heart Healthy, Low Fat and Low Sodium (2gm) Addtl Attending Provider Instructions: Follow-up with your primary care doctor and heart doctor within 1 week. Monitor blood pressure closely at home. Pending Studies at Discharge: No Stand-Alone Forms: My [employer], Smoking Cessation Medications and DC Order Prescriptions: New cephalexin 250 mg/5 mL Suspension For Reconstitution 250 mg PO QID 6 Days Qty: 120 0RF furosemide 80 mg Tablet 80 mg PO BID17 30 Days Qty: 60 0RF potassium chloride 20 mEq Tablet,Er Particles/Crystals 40 meq PO QAM Qty: 30 0RF losartan-hydrochlorothiazide 50-12.5 mg tablet 1 tab PO DAILY Qty: 30 0RF Continued meclizine 25 mg tablet 25 mg PO TID PRN (Reason: Dizziness) Qty: 30 0RF gabapentin 300 mg capsule 300 mg PO TID Qty: 90 0RF (DME) nebulizers Misc See Rx Instructions .Route Qty: 1 0RF Rx Instructions: use as needed fluoxetine 40 mg capsule 40 mg PO QAM Qty: 90 3RF insulin degludec [Tresiba FlexTouch U-200] 200 unit/mL (3 mL) insulin pen 60 unit SQ DAILY 90 Days Qty: 27 1RF levothyroxine 300 mcg tablet 300 mcg PO QAM Qty: 30 3RF metoprolol succinate 50 mg tablet extended release 24 hr 50 mg PO DAILY Qty: 30 0RF Rx Instructions: pt aware dose change (DME) pen needle, diabetic [Pen Needle] 31 gauge x 1/4" needle See Rx Instructions .Route Qty: 100 0RF Rx Instructions: As directed 5x/day insulin lispro [Admelog SoloStar U-100 Insulin] 100 unit/mL insulin pen 1 sliding scale dose subcut USEASDIRECTD MDD 65 U Qty: 60 2RF Rx Instructions: with meals hydrocodone-acetaminophen 10-325 mg tablet 1 tab PO Q8H PRN (Reason: pain) Qty: 30 0RF cyanocobalamin (vitamin B-12) 1,000 mcg tablet 1,000 mcg PO DAILY calcium carbonate-vitamin D3 [Calcium 600 with Vitamin D3] 600 mg(1,500mg) - 500 unit capsule 1 cap PO DAILY (DME) OneTouch Verio test strips Strip See Rx Instructions .Route Qty: 100 2RF Rx Instructions: Use to test blood sugar 3 times a day and as needed. magnesium 250 mg tablet 250 mg PO DAILY biotin 10,000 mcg capsule 10,000 mcg PO DAILY ondansetron HCl 4 mg tablet 4 mg PO QID PRN (Reason: nausea and vomiting) Qty: 30 5RF cyclobenzaprine 5 mg tablet 5 mg PO TID PRN (Reason: muscle spasm) Qty: 30 0RF aspirin 81 mg Tablet,Delayed Release (Dr/Ec) 0 mg PO DAILY Patient Comments: per pt, she's not currently taking. Providers told her to hold medication. ipratropium-albuterol 0.5 mg-3 mg(2.5 mg base)/3 mL solution for nebulization 3 ml INH Q4H PRN (Reason: wheezing) Qty: 180 0RF gabapentin 100 mg capsule 100 mg PO .COMPLEX Qty: 30 0RF Rx Instructions: 100 mg PO add with 300 mg at bedtime; diclofenac sodium [Arthritis Pain (diclofenac)] 1 % gel 2 g topical QID PRN (Reason: Pain) Qty: 100 0RF Rx Instructions: apply to R hip fluticasone propionate 50 mcg/actuation spray,suspension 1 spray intranasal DAILY PRN (Reason: allergies) Rx Instructions: administer into each nostril twice daily cholecalciferol (vitamin D3) [Vitamin D3] 25 mcg (1,000 unit) Tablet 0 mcg PO DAILY krill oil 1 cap PO DAILY Patient Comments: OTC Discontinued amlodipine 10 mg tablet 10 mg PO DAILY Qty: 30 0RF losartan-hydrochlorothiazide 100-25 mg tablet 1 tab PO DAILY Qty: 30 0RF furosemide [Lasix] 20 mg tablet 20 mg PO QAM PRN (Reason: Fluid Retention) Qty: 90 1RF Discharge Orders: Discharge Order (Routine); Ordered 11/11/24 Ordered By: Rajinder Enriquez Admission Data Admit Date/Time: 11/08/24 16:46 Attending Provider: Rajinder Enriquez Admit Provider: Antonette Roberto Primary Care Provider: Ashley Truong Other Providers: Antonette Roberto Hospital Stay Data Consultations 11/08/24 14:50 ED Decision to Admit Stat Pending Results Patient Have Any Pending Studies at Discharge: No Discharge Instructions Given to Patient (Per Discharging Provider) Follow-up with your primary care doctor and heart doctor within 1 week. Monitor blood pressure closely at home. Total Time Total Time Spent Total Time Spent (In Minutes): 35 Coding Level of Care Code 10140 INP/OBS DISCH >30 MIN Diagnoses Swelling of both lower extremities M79.89 Ankle swelling, unspecified laterality M25.473 Laterality: unspecified laterality Volume overload E87.70 Physical deconditioning R53.81
[2024-11-11 16:17] VITALS: PULSE 80
--- NOTE | 2024-11-12 14:01 | Electrocardiogram Report ---
Test Reason : Blood Pressure : */* mmHG Vent. Rate : 76 BPM Atrial Rate : 76 BPM P-R Int : 164 ms QRS Dur : 74 ms QT Int : 400 ms P-R-T Axes : 6 -9 19 degrees QTcB Int : 450 ms Normal sinus rhythm Normal ECG When compared with ECG of 25-Jan-2023 16:12, No significant change was found Confirmed by Dwayne Palafox ([id number]) on 11/12/2024 2:00:32 PM Referred By: REFERRED SELF Confirmed By: Dwayne Palafox
--- NOTE | 2024-11-15 11:15 | Coding Query ---
unknown most likely type of CHF Exacerbation CODING QUERY To promote full compliance with coding requirements relating to patient care, provider participation is requested in all cases of newspaper delivery driver uncertainty. Please assist us with the question(s) below: Coding Question(s): There is volume overload and CHF documented in the record, with the ER documenting, "CHF (congestive heart failure)", and, the H&P and Progress Notes and Discharge Summary documenting, "found to has CHF exacerbation", and the Discharge Summary also documents, "acute volume overload, leg edema". Please specify below, in your clinical opinion, regarding the CHF during this admission: ( ) CHF Exacerbation during this admission Please specify further below the type of CHF Exacerbation: ( ) most likely Diastolic CHF Exacerbation ( ) most likely Systolic CHF Exacerbation ( ) most likely Combined Diastolic and Systolic CHF Exacerbation ( ) most likely Other CHF Exacerbation or CHF: Please Specify ( XXX ) unknown most likely type of CHF Exacerbation ( ) NO CHF Exacerbation, or CHF - CHF is Ruled-Out and there is only Acute Volume Overload of unspecified cause ( ) NO CHF Exacerbation, or CHF - CHF is Ruled-Out and there is only Acute Volume Overload of other specified cause - Please specify Physician's Response(s): Thank you Michelle Dyer Principal Diagnosis: "that condition established after study, to be chiefly responsible for occasioning the admission of the patient to the hospital for care." Co-Existing Principal Diagnosis: "when two or more diagnoses equally meet the criteria for principal diagnosis as determined by the circumstances of admission, diagnostic work up, and/or therapy provided, and the Alphabetic Index, Tabular List, or another coding guideline does not provide sequencing direction, any one of the diagnoses may be sequenced first." "When the physician has documented what appears to be a current diagnosis in the body of the record, but has not included the diagnosis in the final diagnostic statement, the physician should be asked whether the diagnosis should be added." ([facility] 2 QTR90. p3-4) SOPHIA
== END 2024-11-11 16:45 | disposition home health service (06) | DRG 292 ==
LOC: ED 13:03 → SUATTDRO 16:46 → 2N 16:46